=== PATIENT | female | born 1965 | race Caucasian/White ===

== ENCOUNTER 2016-08-04 07:23 | Observation (INO) ==
[2016-08-04] MEDS ORDERED: Ondansetron 4 MG/2 ML VIAL IVP STA (08:00)
[2016-08-04] MEDS ORDERED: *HR* Morphine 2 MG/ML SYRINGE IV ONE (08:00)
--- NOTE | 2016-08-04 08:02 | Emergency Department Note ---
START Narrative - START START: I examined this patient and my medical decision-making was reviewed with the UNEMPLOYMENT INSURANCE DIRECTOR/PA/Advanced Practice Nurse/Resident Physician. I agree with the documented findings, disposition and treatment plan as described except to the extent set forth below. ED attending note: Patient seen with emergency medicine resident Dr. Corbett. Please see a copy of his note for details of the H&P, evaluation, management and disposition of this patient. We independently had [id number] contact with the patient Briefly: A 50-year-old female history of [place] and A. fib on Cymbalta although currently noncompliant presents with epigastric pain is nonexertional. It worsened after eating a cheeseburger last night. Chest mild epigastric discomfort but no discrete Velasquez's sign. Patient will do labs and a formal ultrasound of the right upper quadrant. Also troponin. EKG shows normal sinus rhythm without acute ischemic changes. Patient stable. Disposition pending.
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
[2016-08-04 08:34] LABS: Basophils % 0.4 %; Eosinophils # 0.1 K/mcL (0.0-0.6); Eosinophils % 1.4 %; Hematocrit 36.7 % (35.3-44.9); Hemoglobin 11.5 g/dL (11.5-15.4); Immature Granulocytes % 0.3 % (0-4); Lymphocytes # 1.2 K/mcL (0.6-4.6); Mean Corpuscular HGB Conc 31.3 g/dL (31.6-35.5); Mean Corpuscular Hemoglobin 23.8 pg (28.0-33.3); Mean Platelet Volume 9.9 fL (9.4-12.4); Monocytes # 0.3 K/mcL (0.0-1.3); Monocytes % 3.6 %; Neutrophils # 5.7 K/mcL (1.6-8.9); Platelet Count 210 K/mcL (140-400); Red Blood Count 4.83 M/mcL (3.82-4.97); Red Cell Distribution Width 16.5 % (11.5-14.5); Segmented Neutrophils % 77.3 %
[2016-08-04 08:46] LABS: Alanine Aminotransferase 17 Units/L (0-55); Albumin 3.4 g/dL (3.5-5.0); Albumin/Globulin Ratio 1.1 (1.1-2.2); Alkaline Phosphatase 96 Units/L (38-126); Aspartate Amino Transferase 16 Units/L (5-34); BUN/Creatinine Ratio 17 (6-26); Bilirubin,Direct 0.2 mg/dL (0.0-0.5); Bilirubin,Indirect 0.2 mg/dL (0.0-1.2); Bilirubin,Total 0.4 mg/dL (0.2-1.2); Blood Urea Nitrogen 13 mg/dL (7-20); Calcium 9.3 mg/dL (8.6-10.8); Carbon Dioxide 21 mEq/L (19-29); Chloride 105 mEq/L (98-109); Globulin 3.2 g/dL (2.4-3.5); Glucose 335 mg/dL (70-99); Lipase 23 Units/L (8-78); Osmolality,Calculated 299 (280-300); Sodium 138 mEq/L (136-145); Total Protein 6.6 g/dL (6.0-8.3); eGFR For African Americans > 60 (> 60); eGFR For Non-African Americans > 60 (> 60)
[2016-08-04] MEDS ORDERED: Ondansetron 4 MG/2 ML VIAL IV STA (09:36)
[2016-08-04] MEDS ORDERED: *HR* HYDROmorphone (PF) 1 MG/ML SYRINGE IVP ONE ×2 (09:36→11:01)
[2016-08-04] MEDS ORDERED: D5% in Water 1,000 ML IV PRN ×2 (12:27→12:32)
[2016-08-04] MEDS ORDERED: Acetaminophen 325 MG TABLET PO PRN (12:27)
[2016-08-04] MEDS ORDERED: *HR* Dextrose 50 % in Water (Syg) 50 ML SYRINGE IVP PRN ×2 (12:27→12:32)
[2016-08-04] MEDS ORDERED: Ondansetron 4 MG/2 ML VIAL IVP PRN (12:27)
[2016-08-04] MEDS ORDERED: Dextrose Gel 15 GM PO PRN ×4 (12:27→12:32)
[2016-08-04] MEDS ORDERED: Naloxone 0.4 MG/ML INJ IVP PRN (12:27)
[2016-08-04] MEDS ORDERED: Ipratropium/Albuterol Neb 3 ML IH PRN (12:31)
--- NOTE | 2016-08-04 12:37 | Internal Med History&Physical ---
Date of Encounter: 08/04/16 Time of Encounter: 12:33 Assessment and Plan (1) Intractable abdominal pain Current visit: Yes Status: Acute Intractable abdominal pain likely secondary to cholelithiasis with possible cholecystitis although there is no thickening of the gallbladder wall but the patient is very symptomatic, also has watery diarrhea May discontinue Rocephin and Flagyl if no cholecystitis diagnosed Send C. difficile test, may discontinue Rocephin if positive Dr. Brannon recommended the patient admission and will follow Keep nothing by mouth, IV fluids Morphine IV (2) Cholelithiasis Current visit: Yes Status: Acute Qualifiers: Cholelithiasis location: gallbladder Cholecystitis presence: with cholecystitis Cholecystitis acuity: acute Biliary obstruction: without biliary obstruction Qualified Code(s): K80.00 - Calculus of gallbladder with acute cholecystitis without obstruction (3) Diabetes mellitus, type II, insulin dependent Current visit: No Status: Chronic Continue insulin sliding scale only (4) History of cerebral hemorrhage Current visit: No Status: Chronic (5) Hyperlipemia Current visit: No Status: Chronic Qualifiers: Hyperlipidemia type: unspecified Qualified Code(s): E78.5 - Hyperlipidemia , unspecified (6) Obesity (BMI 30-39.9) Current visit: No Status: Chronic (7) Paroxysmal atrial fibrillation Current visit: No Status: Chronic The patient has not been taking her Xarelto due to constant nasal bleeding Continue metoprolol The patient will be admitted for observation. Protonix IV for GI prophylaxis since super tenderness heparin for DVT prophylaxis. Full code. Time spent on this admission 40 minutes. High risk for complications of possible cholecystitis Internal Medicine - H&P: HPI Chief complaint: Abdominal pain Admitted From: Emergency Dept History of present illness: Ms. Jacome is a 50 year old female with a past medical history of diabetes type 2 insulin-dependent, atrial fibrillation noncompliant with Xareslto (not taking it for the last month) comes to the emergency room complaining of 2 weeks of right upper quadrant pain with epigastric pain, having nausea and bilious emesis. She also has complaint of watery diarrhea 6 times since yesterday without any block. The right upper quadrant pain gets worse after eating fatty meals, radiates to the back and is described as sharp 8 out of 10 in intensity. Glucose is 335. Ultrasound shows cholelithiasis with positive Velasquez sign concerning for cholecystitis. The patient is complaining of severe pain still. Dr. Brannon from the surgical service was contacted by ER physician for admission, but he requested for the patient to be admitted on the hospitalist service. The patient is to complain of severe nausea Past Med Surg Social Fam HX - Past Medical History Medical history: atrial fibrillation (Noncompliant with Xarelto), COPD (Not oxygen dependent), CVA, diabetes (Insulin-dependent), hypertension, liver disease, other (MRSA UTI, anxiety, GERD, depression) Psychiatric history: anxiety, depression - Past Surgical History Surgical History: , other - Social History Smoking Status: Never smoker Smokeless Tobacco Status: No Alcohol use: none Drug use: none - Family History Mother Living Status: Hx Family Cardiac Disorders: Yes Hx Family Respiratory Disorders: Yes (COPD, Emphazema) Hx Family Cancer: Yes Hx Family Endocrine Disorder: Yes (DM) Father Living Status: Hx Family Cardiac Disorders: Yes Hx Family Cancer: Yes Hx Family Endocrine Disorder: Yes (DM) - Additional Family History Additional family history: Father with myocardial infarction at the age of 40, mother with lung cancer Internal Medicine - H&P: Meds Albuterol Sulfate [Proair Respiclick] 2 puff IH Q4H PRN 10/26/15 [History] Aspirin [Adult Low Dose Aspirin EC] 81 mg PO DAILY 10/26/15 [History] ClonazePAM [Klonopin] 0.5 mg PO HS 10/26/15 [History] Etonogestrel [Nexplanon] 68 mg SQ AD 10/26/15 [History] Ferrous Sulfate [Iron] 325 mg PO DAILY 10/26/15 [History] Insulin ASPART [Novolog Flexpen] 2 - 10 unit SQ TID 10/26/15 [History] Insulin Glargine,Hum.rec.anlog [Lantus Solostar] 50 unit SQ BID 10/26/15 [ History] Lisinopril [Zestril] 5 mg PO DAILY 10/26/15 [History] Metformin [Glucophage] 1,000 mg PO BIDWM 10/26/15 [History] Metoprolol [Lopressor] 12.5 mg PO BID 10/26/15 [History] Omeprazole [PriLOSEC] 40 mg PO DAILY 10/26/15 [History] Pregabalin [Lyrica] 100 mg PO BID 10/26/15 [History] Sertraline [Zoloft] 150 mg PO DAILY 10/26/15 [History] Trazodone HCl 50 - 100 mg PO HS PRN 10/26/15 [History] Ondansetron ODT [Zofran ODT] 4 mg SL Q6HR #14 tab.rapdis 02/26/16 [Rx] Atorvastatin Calcium [Lipitor] 20 mg PO DAILY #0 04/17/16 [Rx] Ibuprofen [Motrin] 600 mg PO Q6-8H PRN #30 tab 05/21/16 [Rx] Allergies No Known Allergies Allergy (Verified 08/04/16 07:34) All Systems PM: A 10-system review of systems was performed and is negative for pertinent findings except as documented above in the HPI. Review of systems: Continues having abdominal pain, nausea, no dysuria, no chest pain. Other systems out of the 10th reviewed were negative - Constitutional Vitals: Temp Pulse Resp BP Pulse Ox 98.4 F 74 16 118/67 98 08/04/16 07:32 08/04/16 11:07 08/04/16 11:51 08/04/16 11:51 08/04/16 11:07 General appearance: Present: A&O X 3, morbidly obese Exam: Dry mucosa - Head Head exam: Present: atraumatic, normocephalic - Eye Eye exam: Present: PERRL, conjuntiva pink, sclera anicteric Pupils: Present: PERRL - Neck Neck exam general surgery: Present: supple, trachea midline. Absent: lymphadenopathy - Respiratory Respiratory exam: Present: decreased breath sounds, CTAB. Absent: accessory muscle use, rales, rhonchi, wheezes - Cardiovascular Cardiovascular exam: Present: RRR, +S1, +S2. Absent: diastolic murmur, gallop, rubs, systolic murmur - GI/Abdominal GI/Abdominal exam: Present: distended, normal bowel sounds, soft, tenderness ( Right upper quadrant tenderness, Velasquez's sign is positive), no peritoneal signs - Extremities Exam Extremities exam: Present: warm, radial pulses palpable and symetrical. Absent : calf tenderness, cyanotic, pedal edema - Neurological Exam Neurological exam: Present: CN II-XII intact, oriented X3, no focal deficits. Absent: pronater drift, facial droop, speech deficit - Skin Skin exam: Present: dry, intact Internal Med - H&P Results - Labs CBC & Chem 7: 08/04/16 08:22 08/04/16 08:22
[2016-08-04] MEDS: Pantoprazole 40 MG VIAL IVP SCH (13:49)
[2016-08-04] MEDS: 0.9 % Sodium Chloride 1,000 ML IVC SCH (13:50)
[2016-08-04] MEDS: MetroNIDAZOLE 500 MG/100 ML 500 MG/100 ML BAG IVPB SCH ×2 (13:50→17:08)
[2016-08-04] MEDS: *HR* Morphine 2 MG/ML SYRINGE IVP PRN ×3 (13:51→21:23)
--- NOTE | 2016-08-04 15:15 | General Surgery Consult Note ---
Date of Encounter: 08/04/16 Time of Encounter: 14:30 Assessment and Plan (1) Cholelithiasis Current Visit: Yes Status: Resolved Confirmed by gallbladder US. Continue IV fluids. NPO at midnight. Surgery likely tomorrow afternoon. Supportive care/pain control. Qualifiers: Cholelithiasis location: gallbladder Cholecystitis presence: with cholecystitis Cholecystitis acuity: acute Biliary obstruction: without biliary obstruction Qualified Code(s): K80.00 - Calculus of gallbladder with acute cholecystitis without obstruction (2) Intractable abdominal pain Current Visit: Yes Status: Acute Likely secondary to cholelithiasis. See plan above. (3) Diabetes mellitus, type II, insulin dependent Current Visit: No Status: Chronic BG 335 upon admission. Primary medicine service to manage. (4) Paroxysmal atrial fibrillation Current Visit: No Status: Chronic History of A fib, s/p ablation. Management by medicine service. (5) Hyperlipemia Current Visit: No Status: Chronic Qualifiers: Hyperlipidemia type: unspecified Qualified Code(s): E78.5 - Hyperlipidemia , unspecified (6) Obesity (BMI 30-39.9) Current Visit: No Status: Chronic (7) History of cerebral hemorrhage Current Visit: No Status: Chronic Patient has been non-compliant with Xarelto for months. On heparin for DVT prophylaxis. (8) HTN (hypertension) Current Visit: Yes Status: Acute Currently normotensive. Continued home medicine of metoprolol 12.5mg BID. Management by medicine service. Qualifiers: Hypertension type: essential hypertension Qualified Code(s): I10 - Essential (primary) hypertension (9) DVT prophylaxis Current Visit: Yes Status: Acute Per medicine team, heparin 5,000 SQ Q8H for DVT prophylaxis. History of Present Illness Consult date: 08/04/16 Reason for consult: gallstones Requesting physician: Regan Browning History of present illness: Ms. Jacome is a 50 year old female that presented to the ED for RUQ pain x2 weeks. Patient states the patient has continued to get worse of the past two weeks with intermittent nausea and vomiting. Patient states when the pain is at its worst it is a 9/10 in severity, currently 8/10. Symptoms seem to be worsened with fatty foods. Patient also notes runny, watery, yellowish stools for the past 3-4 weeks. Patient admits to increased sweating and chest pressure when pain is at its worse. Patient denies any melena or BRBPR, denies vision changes or syncope, denies shortness of breath, denies any fevers or chills. Gallbladder US revealed numerous shadowing echogenic stones in the gallbladder lumen. No gallbladder wall thickening or percholecystic fluid.Noted to have positive Velasquez's sign. Common bile duct at the upper limit at 7mm. concern for acute cholecystitis. PMHx of DM type 2, remote CVA(patient states Xarelto makes her bleed so she has not taken it in multiple months), remote OR, HLD, HTN, A fib, OCPD, obesity, anxiety and depression. Past Med Surg Social Fam HX - Past Medical History Medical history: atrial fibrillation, COPD, CVA, diabetes, hypertension Psychiatric history: anxiety, depression - Past Surgical History Surgical History: - Social History Smoking Status: Never smoker Smokeless Tobacco Status: No Alcohol use: none Drug use: none - Family History Mother Living Status: Cause of : lung cancer Hx Family Cardiac Disorders: Yes Hx Family Respiratory Disorders: Yes (copd) Hx Family Cancer: Yes (lung cancer) Hx Family Endocrine Disorder: Yes (DM type II) Father Living Status: Cause of : heart attack Hx Family Cardiac Disorders: Yes Hx Family Cancer: Yes (stomach cancer) Hx Family Endocrine Disorder: Yes (DM) Medications and Allergies Albuterol Sulfate [Proair Respiclick] 2 puff IH Q4H PRN 10/26/15 [History] Aspirin [Adult Low Dose Aspirin EC] 81 mg PO DAILY 10/26/15 [History] ClonazePAM [Klonopin] 0.5 mg PO HS 10/26/15 [History] Etonogestrel [Nexplanon] 68 mg SQ AD 10/26/15 [History] Ferrous Sulfate [Iron] 325 mg PO DAILY 10/26/15 [History] Insulin ASPART [Novolog Flexpen] 2 - 10 unit SQ TID 10/26/15 [History] Insulin Glargine,Hum.rec.anlog [Lantus Solostar] 50 unit SQ BID 10/26/15 [ History] Lisinopril [Zestril] 5 mg PO DAILY 10/26/15 [History] Metformin [Glucophage] 1,000 mg PO BIDWM 10/26/15 [History] Metoprolol [Lopressor] 12.5 mg PO BID 10/26/15 [History] Omeprazole [PriLOSEC] 40 mg PO DAILY 10/26/15 [History] Pregabalin [Lyrica] 100 mg PO BID 10/26/15 [History] Sertraline [Zoloft] 150 mg PO DAILY 10/26/15 [History] Trazodone HCl 50 - 100 mg PO HS PRN 10/26/15 [History] Ondansetron ODT [Zofran ODT] 4 mg SL Q6HR #14 tab.rapdis 02/26/16 [Rx] Atorvastatin Calcium [Lipitor] 20 mg PO DAILY #0 04/17/16 [Rx] Ibuprofen [Motrin] 600 mg PO Q6-8H PRN #30 tab 05/21/16 [Rx] Docusate Sodium [Colace] 100 mg PO DAILY PRN 30 Days 08/06/16 [Rx] OxyCODONE/APAP 5/325 [Percocet 5/325 MG] 1 each PO Q6HR PRN #30 tablet 08/06/16 [Rx] Allergies No Known Allergies Allergy (Verified 08/04/16 07:34) Review of Systems All systems PM: A 10-system review of systems was performed and is negative for pertinent findings except as documented above in the HPI. - Constitutional no chills, no fever(s), no night sweats - EENT Nose, mouth and throat: dry mouth - Cardiovascular chest pain (recent work related injury to chest), palpitations, no dyspnea, no edema, no syncope - Respiratory no cough, no dyspnea - Gastrointestinal abdominal pain, diarrhea, nausea, vomiting, no coffee ground emesis, no hematemesis, no melena - Genitourinary Genitourinary: flank pain (radiates around R side into back), no dysuria - Musculoskeletal back pain, numbness, tingling - Neurological radicular pain, no confusion, no loss of vision, no syncope - Psychiatric anxiety, depression - Endocrine excessive sweating - Hematologic/Lymphatic easy bleeding General Surgery Exam Initial Vital Signs Temp Pulse Resp BP Pulse Ox 98.4 F 87 16 143/72 97 08/04/16 07:32 08/04/16 07:32 08/04/16 07:32 08/04/16 07:32 08/04/16 07:32 - General physical appearance well developed, well nourished, moderate pain - Eyes pinpoint pupil, normal ocular movement - ENT normal mucosa, no congestion, atraumatic, normocephalic - Neck trachea midline - Respiratory normal expansion, normal respiratory effort, clear to auscultation - Cardiovascular Cardiovascular exam: Present: RRR, no murmurs/rubs/gallops - Abdomen Abdomen general surgery: Present: bowel sounds present, soft, tender (referred tenderness to RUQ when palpation ofentire abdomen.) Abdominal Tenderness: Present: RUQ, diffusely (referred to RUQ) - Integumentary Integumentary general surgery: Present: warm and dry, no abnormal pigmentation - Neurologic Present: normal coordination. Absent: CN 2-12 grossly intact (uvula deviated to the left.), confused, disoriented, memory loss - Psychiatric Psychiatric general surgery: Present: appropriate, oriented to person, oriented to place, oriented to time, speech is normal, memory intact Exam Initial Vital Signs Temp Pulse Resp BP Pulse Ox 98.4 F 87 16 143/72 97 08/04/16 07:32 08/04/16 07:32 08/04/16 07:32 08/04/16 07:32 08/04/16 07:32 Results - Labs 08/06/16 08:05 08/06/16 08:05 Abnormal lab results MCV 76.0 fL (83.0-100.0) L 08/04/16 08:22 MCH 23.8 pg (28.0-33.3) L 08/04/16 08:22 MCHC 31.3 g/dL (31.6-35.5) L 08/04/16 08:22 RDW 16.5 % (11.5-14.5) H 08/04/16 08:22 Glucose 335 mg/dL (70-99) H 08/04/16 08:22 POC Glucose 276 (58-89) H 08/04/16 09:18 Albumin 3.4 g/dL (3.5-5.0) L 08/04/16 08:22 All other labs normal. Consult Discharge Plan - Plan Additional Instructions: May shower. No lifting, pushing, pulling more than 15 pounds[address] til off narcotics. Wash incisions with soap and water. Referrals: Joanne Paez MD [Primary Care Provider] - 08/14/16 1:45 pm Prescriptions: OxyCODONE/APAP 5/325 [Percocet 5/325 MG] 1 each PO Q6HR PRN #30 tablet PRN Reason: Pain Docusate Sodium [Colace] 100 mg PO DAILY PRN 30 Days PRN Reason: Constipation
[2016-08-04] MEDS: *HR* Heparin 5,000 UNIT/ML VIAL SQ SCH (17:05)
[2016-08-04] MEDS: Insulin LISPRO 300 UNITS/3 ML VIAL SQ SCH (17:10)
[2016-08-04] MEDS ORDERED: clonazePAM 0.5 MG TABLET PO SCH (21:00)
[2016-08-04] MEDS: Pregabalin 50 MG CAPSULE PO SCH (21:38)
[2016-08-05] MEDS: *HR* Heparin 5,000 UNIT/ML VIAL SQ SCH ×2 (00:35→08:29)
[2016-08-05] MEDS: *HR* Morphine 2 MG/ML SYRINGE IVP PRN ×5 (00:35→22:16)
[2016-08-05] MEDS: MetroNIDAZOLE 500 MG/100 ML 500 MG/100 ML BAG IVPB SCH ×3 (00:36→17:15)
[2016-08-05] MEDS: Insulin LISPRO 300 UNITS/3 ML VIAL SQ SCH ×4 (00:36→12:16)
[2016-08-05] MEDS: 0.9 % Sodium Chloride 1,000 ML IVC SCH ×3 (00:36→21:13)
[2016-08-05 07:13] LABS: Hematocrit 35.5 % (35.3-44.9); Hemoglobin 10.9 g/dL (11.5-15.4); Mean Corpuscular HGB Conc 30.7 g/dL (31.6-35.5); Mean Corpuscular Hemoglobin 23.7 pg (28.0-33.3); Mean Corpuscular Volume 77.2 fL (83.0-100.0); Mean Platelet Volume 10.2 fL (9.4-12.4); Platelet Count 199 K/mcL (140-400); Red Cell Distribution Width 16.1 % (11.5-14.5)
[2016-08-05 07:33] LABS: Alanine Aminotransferase 22 Units/L (0-55); Albumin 2.9 g/dL (3.5-5.0); Alkaline Phosphatase 74 Units/L (38-126); Aspartate Amino Transferase 34 Units/L (5-34); BUN/Creatinine Ratio 14 (6-26); Bilirubin,Total 0.4 mg/dL (0.2-1.2); Blood Urea Nitrogen 9 mg/dL (7-20); Carbon Dioxide 21 mEq/L (19-29); Chloride 107 mEq/L (98-109); Glucose 157 mg/dL (70-99); Osmolality,Calculated 290 (280-300); Potassium 3.9 mEq/L (3.5-4.5); Sodium 139 mEq/L (136-145); Total Protein 5.9 g/dL (6.0-8.3); eGFR For African Americans > 60 (> 60); eGFR For Non-African Americans > 60 (> 60)
[2016-08-05] MEDS: Pantoprazole 40 MG VIAL IVP SCH (08:30)
[2016-08-05] MEDS: Pregabalin 50 MG CAPSULE PO SCH ×2 (08:30→21:14)
[2016-08-05] MEDS ORDERED: Aspirin Enteric Coated 81 MG Tablet PO SCH (09:00)
--- NOTE | 2016-08-05 11:40 | Event Note ---
Date of Encounter: 08/05/16 Time of Encounter: 11:38 Patient seen at the bedside, still complaining of epigastric pain. Also has nausea, patient admitted for acute cholecystitis. Gallbladder ultrasound shows cholelithiasis with possible acute cholecystitis. IV antibiotics have been started, patient remains nothing by mouth. We will continue supportive treatment with IV fluids, analgesics and antiemetics. Surgery has been consulted, anticipating possible cholecystectomy. We will follow surgical recommendations. Patient remains hemodynamically stable at this time.
[2016-08-05] MEDS ORDERED: *HR* FentaNYL (PF) 100 MCG/2 ML VIAL ONE (16:00)
[2016-08-05] MEDS ORDERED: Lidocaine -MPF 2% 2 ML VIAL ONE ×2 (16:12→16:20)
[2016-08-05] MEDS ORDERED: Lidocaine -MPF 4% 5 ML AMPUL ONE (16:12)
[2016-08-05] MEDS ORDERED: *HR* Succinylcholine 200 MG/10 ML VIAL IVP ONE (16:12)
[2016-08-05] MEDS ORDERED: *HR* Propofol 200 MG/20 ML VIAL IVP ONE (16:12)
[2016-08-05] MEDS ORDERED: *HR* Midazolam HCl 2 MG/2 ML VIAL ONE (16:12)
[2016-08-05] MEDS ORDERED: *HR* Rocuronium Bromide 50 MG/5 ML VIAL ONE (16:12)
--- NOTE | 2016-08-05 16:46 | Anesthesia Evaluation PreOp ---
Date of Encounter: 08/05/16 Time of Encounter: 16:43 - Past History Planned Operation: Lap [facility] Cardiac History: CA (2003), HTN (maintained on Lisinopril, Lopressor), Hyperlipidemia (mainatained on Atorvastatin), Arrhythmia (Hx of Paroxysmal AFib s/p cardiac ablation. Maintained on Xarelto (currently stopped x 1 month re: epistaxis ), Metoprolol) Pulmonary History: COPD (maintained on Albuterol) [facility] History: CVA (approximately 2009 - w/ residual L-sided weakness, numbness, bowel/Bladder dysfx.), Other (Anxiety/Depression maintained on Clonazepam, Trazadone, Zoloft. Chronic Pain/Neuropathy maintained on Lyrica. Hx of psychiatric issues/Conversion disorder. Hx of Facial Paresthesia) Other Medical History: Bleeding (Hx of PE approx 2011), Diabetes Type II (Hx of uncontrolled DM - currently maintained on insulin (dependent), Metformin), GERD (maintained on Omeprazole), Other (Obesity BMI = 36.) Anesthesia History: No Prior Anesthetic Complications, Past Anesthesia (C- section,) Alcohol Use: none Drug use: none Medications and Allergies Albuterol Sulfate [Proair Respiclick] 2 puff IH Q4H PRN 10/26/15 [History] Aspirin [Adult Low Dose Aspirin EC] 81 mg PO DAILY 10/26/15 [History] ClonazePAM [Klonopin] 0.5 mg PO HS 10/26/15 [History] Etonogestrel [Nexplanon] 68 mg SQ AD 10/26/15 [History] Ferrous Sulfate [Iron] 325 mg PO DAILY 10/26/15 [History] Insulin ASPART [Novolog Flexpen] 2 - 10 unit SQ TID 10/26/15 [History] Insulin Glargine,Hum.rec.anlog [Lantus Solostar] 50 unit SQ BID 10/26/15 [ History] Lisinopril [Zestril] 5 mg PO DAILY 10/26/15 [History] Metformin [Glucophage] 1,000 mg PO BIDWM 10/26/15 [History] Metoprolol [Lopressor] 12.5 mg PO BID 10/26/15 [History] Omeprazole [PriLOSEC] 40 mg PO DAILY 10/26/15 [History] Pregabalin [Lyrica] 100 mg PO BID 10/26/15 [History] Sertraline [Zoloft] 150 mg PO DAILY 10/26/15 [History] Trazodone HCl 50 - 100 mg PO HS PRN 10/26/15 [History] Ondansetron ODT [Zofran ODT] 4 mg SL Q6HR #14 tab.rapdis 02/26/16 [Rx] Atorvastatin Calcium [Lipitor] 20 mg PO DAILY #0 04/17/16 [Rx] Ibuprofen [Motrin] 600 mg PO Q6-8H PRN #30 tab 05/21/16 [Rx] Allergies No Known Allergies Allergy (Verified 08/04/16 07:34) - Meds/Allergy Pre-op Review Medications Reviewed: Yes Allergies Reviewed: Yes Beta Blockers on Current Med List: No Anesthesia Results - Labs 08/05/16 06:49 08/05/16 06:49 Laboratory Tests 08/05/16 08/05/16 08/05/16 06:49 06:49 12:12 WBC 6.2 Hgb 10.9 L Hct 35.5 Plt Count 199 Sodium 139 Potassium 3.9 Chloride 107 Carbon Dioxide 21 BUN 9 Creatinine 0.66 Est GFR (Non-Af Amer) > 60 POC Glucose 130 H Laboratory Results Impressions Chest X-Ray 08/04/16 07:57 IMPRESSION: Stable chest with no acute cardiopulmonary process. D/ / Valentín Mendenhall MD / Valentín Mendenhall MD Interpreting Provider: Valentín Mendenhall MD Gallbladder Ultrasound 08/04/16 08:01 IMPRESSION: Cholelithiasis with common bile duct at the upper limits of normal and technologist reporting positive sonographic Velasquez sign. The findings are concerning for acute cholecystitis. Nuclear medicine hepatobiliary scintigraphy could be performed for confirmation if clinically warranted. Fatty infiltration of the liver. Findings called to Dr. Corbett at approximately 10:40 a.m. on 08/04/2016. D/ / Valentín Mendenhall MD / Valentín Mendenhall MD Interpreting Provider: Valentín Mendenhall MD - Imaging EKG: image reviewed (77bpm SR) Anesthesia Exam Vital Signs Temp Pulse Resp BP Pulse Ox 08/05/16 16:45 98.2 F 69 16 140/76 95 08/05/16 11:33 97.7 F 57 14 91/57 96 08/05/16 06:57 97.7 F 64 16 111/70 96 08/05/16 03:45 97.7 F 71 16 102/55 96 08/04/16 23:45 97.3 F L 63 16 109/68 95 08/04/16 20:37 97.2 F L 61 14 115/67 98 Intake and Output 08/05/16 08/05/16 08/05/16 07:59 15:59 23:59 Intake Total 100 / 100 100 / 100 Output Total 150 / 150 400 / 400 300 / 300 Balance -50 / -50 -300 / -300 -300 / -300 Intake: IV Fluids 100 / 100 100 / 100 0.9 % Sodium Chloride 1, 0 / 0 000 ML @ 150 mls/hr IVC . Q6H40M [facility] Rx#:[id number] Flagyl 500 MG/100 ML 500 100 / 100 100 / 100 mg In 100 ml @ 100 mls/hr IVPB Q8HR [facility] Rx#: [id number] Oral 0 / 0 Output: Urine 150 / 150 400 / 400 300 / 300 Other: Meal NPO at this time Weight 86.1 kg Blood Glucose* 148 130 Patient Weight 08/05/16 23:59 Weight 86.1 kg Height: 5'1 Weight: 189# BMI = 36 NPO (# of Hours): MNOC - HEENT Pupil (Motor): Pupils equal, EOMI Mallampati: III Teeth: Edentulous Oral Opening: Greater than 3 - [facility] LOC: Oriented [facility] Motor: Normal RUE, Normal RLE, Normal Face, Deficit LUE (L-sided weakness, Numbness), Deficit LLE [facility] Sensory: Normal: RUE, RLE, Face, Deficit: LUE (L-sided weakness, Numbness), LLE - Cardiac Rhythm: Regular Murmur: None - Pulmonary Breath Sounds: bilateral Clear Respiratory Effort: Symmetrical Anesthesia Assess/Plan ASA Score: 3 (Obesity, Uncontrolled DM, HTN, Chol, Paroxysmal AFib, COPD, Psychiatric disorder) Modified Phoebe Scale for Level of Consciousness: Cooperative, oriented, and tranquil Anesthetic Plan: General Monitoring Plan: Standard Monitors Recovery Plan: PACU Anes Supervising Prov Stmt: Pt seen/evaluated, R&B Discussed, questions answered and consent obtained. Daxa Lizama MD
[2016-08-05] MEDS ORDERED: MetroNIDAZOLE 500 MG/100 ML 500 MG/100 ML BAG IVPB ONE (16:57)
[2016-08-05] MEDS ORDERED: Ringers Solution, Lactated 1,000 ML ONE (16:58)
[2016-08-05] MEDS ORDERED: Acetaminophen IV 1,000 MG/100 ML INFUS..BTL ONE (17:11)
[2016-08-05] MEDS ORDERED: Metoclopramide 10 MG/2 ML VIAL ONE (17:14)
[2016-08-05] MEDS ORDERED: Famotidine 20 MG/2 ML VIAL ONE (17:14)
[2016-08-05] MEDS ORDERED: Ondansetron 4 MG/2 ML VIAL ONE (17:44)
[2016-08-05] MEDS ORDERED: Dexamethasone 4 MG/ML VIAL ONE (17:44)
[2016-08-05] MEDS ORDERED: Ketorolac 30 MG/ML VIAL ONE (17:44)
[2016-08-05] MEDS ORDERED: Ringers Solution, Lactated 1,000 ML IVC SCH ×2 (17:45→19:19)
[2016-08-05] MEDS ORDERED: Neostigmine Methylsulfate 3 MG/3 ML SYRINGE ONE (17:59)
[2016-08-05] MEDS ORDERED: *HR* HYDROmorphone 2 MG/ML SYRINGE ONE (17:59)
--- NOTE | 2016-08-05 18:15 | Operative Note ---
Date of procedure: 08/05/16 Pre-op diagnosis: symptomatic cholelithiasis Post-op diagnosis: same Procedure: Laparoscopic Cholecystectomy with cholangiogram Anesthesia: RENETTA Surgeon: Brent Brannon Estimated blood loss (cc): 200 Specimen: GB Condition: stable Disposition: same day Procedure in Detail: After informed consent this patient was taken the operating room placed supine position. After adequate sedation anesthesia the abdomen was prepped and draped. A proper timeout was performed. Two towel clamps are placed at the umbilicus and a Veres needle was inserted into the abdomen. A 5 mm incision was made at the umbilicus. A 12 mm incision was made in the subxiphoid region. Two 5 mm incisions were made in the right upper quadrant that were 4 finger breadths and 6 finger breadths below the costal margin. The gallbladder was identified, retracted anteriorly and cephalad, and the infundibulum was skeletonized. The cystic duct was easily identified and was dissected free. A ductotomy was created in the cystic duct. A taut catheter was placed within the cystic duct and clipped. A cholangiogram was performed. Contrast filled the cystic duct, common hepatic duct, hepatic radicles, and the distal common bile duct. There was flow of contrast into the duodenum. Once this was confirmed the clippers removed, the taut catheter was removed as well, and the cystic duct was clipped distally. The cystic duct was then transected with scissors. The gallbladder was resected off the liver surface. There was excellent hemostasis. The gallbladder was then retrieved through the 12 mm cannula site. At this point the abdomen was suctioned dry and the pneumoperitoneum was then evacuated. All ports were removed. The 12 mm cannula site was closed with an 0 Vicryl suture in [id number] fashion. The skin was closed with 4-0 Vicryl suture. Dermabond was placed as well. All instrument counts and needle counts are correct in the operation. The patient tolerated the procedure well and was transferred to the PACU in stable condition.
--- NOTE | 2016-08-05 19:00 | Anesthesia Evaluation Post Op ---
Date of Encounter: 08/05/16 Time of Encounter: 19:00 - Vital Signs Vital Signs: Last Vital Signs Temp 98.8 F 08/05/16 18:51 Pulse 76 08/05/16 18:51 Resp 20 08/05/16 18:51 BP 102/59 08/05/16 18:51 Pulse Ox 94 L 08/05/16 18:51 - Lungs Lungs: Clear Ascult./Percussion - Airway Airway: Non-obstructed - Cardiovascular Regular Rate - Mental Status Mental Status: Alert & Oriented, Answers Appropriately - Pain Pain Scale: 2 - Nausea Vomiting Nausea Vomiting: Not Present - Hydration Hydration: Ice chips - Discharge PostOp Status: Transfer Patient to floor
[2016-08-05] MEDS ORDERED: D5% in Water 1,000 ML IV PRN (19:19)
[2016-08-05] MEDS ORDERED: Ipratropium/Albuterol Neb 3 ML IH PRN (19:19)
[2016-08-05] MEDS ORDERED: Naloxone 0.4 MG/ML INJ IVP PRN (19:19)
[2016-08-05] MEDS ORDERED: Ondansetron 4 MG/2 ML VIAL IVP PRN (19:19)
[2016-08-05] MEDS ORDERED: Dextrose Gel 15 GM PO PRN ×4 (19:19)
[2016-08-05] MEDS ORDERED: *HR* Dextrose 50 % in Water (Syg) 50 ML SYRINGE IVP PRN (19:19)
--- NOTE | 2016-08-05 19:53 | Electrocardiograph Report ---
[facility] Test Date: 2016-08-04 Pat Name: Christie Jacome Department: 105 Room: 3A47 Gender: F Frame Straightener: : 1965 Requested By: Zi Corbett Order Number: [id number] Reading MD: Jamie Dow DO Measurements Intervals [place] Rate: 77 P: 44 MI: 149 QRS: 30 QRSD: 98 T: 27 QT: 363 QTc: 394 Interpretive Statements SINUS RHYTHM Electronically Signed On 08-05-16 19:52:22 EST by Jamie Dow DO
[2016-08-05] MEDS: clonazePAM 0.5 MG TABLET PO SCH (21:14)
[2016-08-05] MEDS: Acetaminophen 325 MG TABLET PO PRN (22:22)
[2016-08-06] MEDS: MetroNIDAZOLE 500 MG/100 ML 500 MG/100 ML BAG IVPB SCH ×3 (00:40→17:01)
[2016-08-06] MEDS: *HR* Heparin 5,000 UNIT/ML VIAL SQ SCH ×3 (00:40→17:00)
[2016-08-06] MEDS: Insulin LISPRO 300 UNITS/3 ML VIAL SQ SCH ×4 (00:41→17:01)
[2016-08-06] MEDS: *HR* Morphine 2 MG/ML SYRINGE IVP PRN ×2 (00:42→05:58)
[2016-08-06] MEDS: 0.9 % Sodium Chloride 1,000 ML IVC SCH (05:16)
[2016-08-06 08:15] LABS: Basophils % 0.2 %; Eosinophils % 0.1 %; Hematocrit 33.5 % (35.3-44.9); Hemoglobin 10.5 g/dL (11.5-15.4); Immature Granulocytes % 0.3 % (0-4); Lymphocytes # 0.9 K/mcL (0.6-4.6); Lymphocytes % 10.6 %; Mean Corpuscular HGB Conc 31.3 g/dL (31.6-35.5); Mean Corpuscular Hemoglobin 23.8 pg (28.0-33.3); Mean Platelet Volume 9.7 fL (9.4-12.4); Monocytes # 0.4 K/mcL (0.0-1.3); Neutrophils # 7.5 K/mcL (1.6-8.9); Platelet Count 196 K/mcL (140-400); Red Blood Count 4.41 M/mcL (3.82-4.97); Red Cell Distribution Width 15.9 % (11.5-14.5); Segmented Neutrophils % 84.8 %
[2016-08-06 08:28] LABS: BUN/Creatinine Ratio 14 (6-26); Blood Urea Nitrogen 9 mg/dL (7-20); Calcium 7.6 mg/dL (8.6-10.8); Carbon Dioxide 19 mEq/L (19-29); Chloride 110 mEq/L (98-109); Glucose 175 mg/dL (70-99); Osmolality,Calculated 291 (280-300); Potassium 3.5 mEq/L (3.5-4.5); Sodium 139 mEq/L (136-145); eGFR For African Americans > 60 (> 60); eGFR For Non-African Americans > 60 (> 60)
[2016-08-06] MEDS: *HR* HYDROmorphone 2 MG/ML SYRINGE IVP PRN ×3 (08:57→20:00)
[2016-08-06] MEDS: Pantoprazole 40 MG VIAL IVP SCH (08:58)
[2016-08-06] MEDS: Aspirin Enteric Coated 81 MG Tablet PO SCH (08:59)
[2016-08-06] MEDS: Pregabalin 50 MG CAPSULE PO SCH ×2 (09:00→20:01)
--- NOTE | 2016-08-06 10:59 | Internal Med Progress Note ---
Date of Encounter: 08/06/16 Time of Encounter: 10:56 - Assessment and plan (1) Cholecystitis Current Visit: Yes Status: Acute Assessment and plan: Acute cholecystitis secondary to cholelithiasis, status post laparoscopic cholecystectomy first postoperative day today. Complaining of abdominal pain at the site of the surgery, expected postoperatively. We will increase the pain medications. We will continue IV fluids for now, diet to be started as recommended by surgery. We will continue IV antibiotics at this time. Remains afebrile, no leukocytosis,postop H&H is stable. (2) HTN (hypertension) Current Visit: Yes Status: Acute Assessment and plan: Blood pressure is stable, will continue home medications. Continue to monitor. Qualifiers: Hypertension type: essential hypertension Qualified Code(s): I10 - Essential (primary) hypertension (3) Diabetes mellitus Current Visit: No Status: Chronic Assessment and plan: Continue the correctional insulin sliding scale. Will add prandial insulin once started on diet. Monitor Accu-Cheks. Qualifiers: Diabetes mellitus type: type 2 Diabetes mellitus complication status: without complication Diabetes mellitus ocean transportation intermediary insulin use: with ocean transportation intermediary use Qualified Code(s): E11.9 - Type 2 diabetes mellitus without complications ; Z79.4 - [facility] (current) use of insulin (4) Hyperlipemia Current Visit: No Status: Chronic Assessment and plan: Continue home medication. Qualifiers: Hyperlipidemia type: unspecified Qualified Code(s): E78.5 - Hyperlipidemia , unspecified (5) Obesity (BMI 30-39.9) Current Visit: No Status: Chronic - Time Spent With Patient 25 - 35 minutes - Subjective Interval history: Patient seen at the bedside, status post laparoscopic cholecystectomy yesterday with Dr. Brannon. Complaining of abdominal pain at the site of the surgery, no nausea or vomiting. Asking if she can drink water. Has not had any bowel movement, remains afebrile. - Constitutional Vitals: Temp Pulse Resp BP Pulse Ox 98.5 F 64 12 104/68 90 L 08/06/16 10:33 08/06/16 10:33 08/06/16 10:33 08/06/16 10:33 08/06/16 10:33 General appearance: Present: A&O X 3, morbidly obese Exam: Neck supple Chest bilateral clear, no added sounds. CVS S1-S2, no murmurs rubs or gallops. Abdomen soft, tender on the right hypochondrium and epigastric region, bowel sounds are present, no rebound. Extremities no edema. Internal Medicine: Result - Labs CBC & Chem 7: 08/06/16 08:05 08/06/16 08:05 Labs: Short CBC 08/06/16 Range/Units 08:05 WBC 8.8 (4.3-11.1) K/mcL Hgb 10.5 L (11.5-15.4) g/dL Hct 33.5 L (35.3-44.9) % Plt Count 196 (140-400) K/mcL Neutrophils # 7.5 (1.6-8.9) K/mcL BMP 08/06/16 08:05 Sodium 139 Potassium 3.5 Chloride 110 H Carbon Dioxide 19 BUN 9 Creatinine 0.64 Glucose 175 H Calcium 7.6 L - Impressions Impressions Cholangiogram,Operative 08/05/16 00:00 IMPRESSION: 1. Intraoperative cholangiogram as above. D/ / Gilberto Mott MD / Gilberto Mott MD Interpreting Provider: Gilberto Mott MD - VTE Documentation of Mechanical Device: Intermittent pneumatic compression device Consult Discharge Plan - Plan Referrals: Joanne Paez MD [Primary Care Provider] - 08/14/16 1:45 pm
--- NOTE | 2016-08-06 11:21 | General Surgery Progress Note ---
Date of Encounter: 08/06/16 Time of Encounter: 10:00 - Assessment and Plan (1) Cholelithiasis Current Visit: Yes Status: Resolved POD#1 s/p Cholecystectomy Afebrile Currently NPO Supportive care/pain control Qualifiers: Cholelithiasis location: gallbladder Cholecystitis presence: with cholecystitis Cholecystitis acuity: acute Biliary obstruction: without biliary obstruction Qualified Code(s): K80.00 - Calculus of gallbladder with acute cholecystitis without obstruction (2) Intractable abdominal pain Current Visit: Yes Status: Acute Improving s/p cholecystectomy. See plan above. (3) Diabetes mellitus, type II, insulin dependent Current Visit: No Status: Chronic Management per medicine service. (4) HTN (hypertension) Current Visit: Yes Status: Acute Currently normotensive. Management per medicine service. Qualifiers: Hypertension type: essential hypertension Qualified Code(s): I10 - Essential (primary) hypertension (5) Paroxysmal atrial fibrillation Current Visit: No Status: Chronic (6) Hyperlipemia Current Visit: No Status: Chronic Qualifiers: Hyperlipidemia type: unspecified Qualified Code(s): E78.5 - Hyperlipidemia , unspecified (7) Obesity (BMI 30-39.9) Current Visit: No Status: Chronic (8) History of cerebral hemorrhage Current Visit: No Status: Chronic (9) DVT prophylaxis Current Visit: Yes Status: Acute Heparin 5,000 SQ Q8H for prophylaxis. Subjective Patient reports: no new complaints, feels better, still having pain, pain is less, flatus, afebrile Objective Vital Signs - Last 8 Hours Temp Pulse Resp BP Pulse Ox 08/06/16 10:33 98.5 F 64 12 104/68 90 L 08/06/16 07:27 98.5 F 72 16 115/72 93 L 08/06/16 04:30 97.9 F 71 16 121/79 93 L Intake and Output 08/05/16 08/06/16 08/06/16 23:59 07:59 15:59 Intake Total 100 / 100 1100 / 1100 Output Total 500 / 500 500 / 500 Balance -400 / -400 600 / 600 Intake: IV Fluids 100 / 100 1100 / 1100 0.9 % Sodium Chloride 1, 1000 / 1000 000 ML @ 150 mls/hr IVC . Q6H40M [facility] Rx#:[id number] Flagyl 500 MG/100 ML 500 100 / 100 100 / 100 mg In 100 ml @ 100 mls/hr IVPB Q8HR [facility] Rx#: [id number] Oral 0 / 0 0 / 0 Output: Urine 300 / 300 500 / 500 Estimated Blood Loss 200 / 200 Other: Meal Dinner NPO Percent of Meal Consumed 0% Weight 86 kg Blood Glucose* 243 205 156 Patient Weight 08/06/16 23:59 Weight 86 kg - General physical appearance well developed, well nourished, moderate distress - Eyes normal ocular movement - ENT normal mucosa, atraumatic, normocephalic - Neck Neck exam: trachea midline - Respiratory normal respiratory effort, clear to auscultation - Cardiovascular Cardiovascular exam: Present: RRR - Abdomen Abdomen: Present: bowel sounds present, soft, tender (expected post operative tenderness) - Incision Incision: Present: clean and dry, intact - Integumentary no rash - Neurologic CN 2-12 grossly intact - Psychiatric oriented to time, oriented to person, oriented to place, speech is normal, memory intact - Labs 08/06/16 08:05 08/06/16 08:05 Diabetes panel 08/06/16 Range/Units 08:05 Sodium 139 (136-145) mEq/L Potassium 3.5 (3.5-4.5) mEq/L Chloride 110 H (98-109) mEq/L Carbon Dioxide 19 (19-29) mEq/L BUN 9 (7-20) mg/dL Creatinine 0.64 (0.57-1.11) mg/dL Glucose 175 H (70-99) mg/dL Calcium 7.6 L (8.6-10.8) mg/dL Calcium panel 08/06/16 Range/Units 08:05 Calcium 7.6 L (8.6-10.8) mg/dL Pituitary panel 08/06/16 Range/Units 08:05 Sodium 139 (136-145) mEq/L Potassium 3.5 (3.5-4.5) mEq/L Chloride 110 H (98-109) mEq/L Carbon Dioxide 19 (19-29) mEq/L BUN 9 (7-20) mg/dL Creatinine 0.64 (0.57-1.11) mg/dL Glucose 175 H (70-99) mg/dL Calcium 7.6 L (8.6-10.8) mg/dL Adrenal panel 08/06/16 Range/Units 08:05 Sodium 139 (136-145) mEq/L Potassium 3.5 (3.5-4.5) mEq/L Chloride 110 H (98-109) mEq/L Carbon Dioxide 19 (19-29) mEq/L BUN 9 (7-20) mg/dL Creatinine 0.64 (0.57-1.11) mg/dL Glucose 175 H (70-99) mg/dL Calcium 7.6 L (8.6-10.8) mg/dL - VTE Documentation of Mechanical Device: Intermittent pneumatic compression device Consult Discharge Plan - Plan Additional Instructions: May shower. No lifting, pushing, pulling more than 15 pounds[address] No [address] til off narcotics. Wash incisions with soap and water. Referrals: Joanne Paez MD [Primary Care Provider] - 08/14/16 1:45 pm Prescriptions: OxyCODONE/APAP 5/325 [Percocet 5/325 MG] 1 each PO Q6HR PRN #30 tablet PRN Reason: Pain Docusate Sodium [Colace] 100 mg PO DAILY PRN 30 Days PRN Reason: Constipation
[2016-08-06] MEDS: *HR* OxyCODONE/APAP 10/325 TABLET PO PRN ×2 (12:07→18:15)
[2016-08-06] MEDS: clonazePAM 0.5 MG TABLET PO SCH (20:01)
[2016-08-07] MEDS: *HR* HYDROmorphone 2 MG/ML SYRINGE IVP PRN ×3 (00:02→10:15)
[2016-08-07] MEDS: *HR* Heparin 5,000 UNIT/ML VIAL SQ SCH ×4 (00:02→23:03)
[2016-08-07] MEDS: MetroNIDAZOLE 500 MG/100 ML 500 MG/100 ML BAG IVPB SCH ×3 (00:02→16:04)
[2016-08-07] MEDS: 0.9 % Sodium Chloride 1,000 ML IVC SCH (00:03)
[2016-08-07] MEDS: Insulin LISPRO 300 UNITS/3 ML VIAL SQ SCH ×6 (00:20→16:30)
[2016-08-07] MEDS: *HR* OxyCODONE/APAP 10/325 TABLET PO PRN ×4 (03:53→23:03)
[2016-08-07] MEDS: Acetaminophen 325 MG TABLET PO PRN (06:24)
[2016-08-07] MEDS: Pantoprazole 40 MG VIAL IVP SCH (09:00)
[2016-08-07] MEDS: Aspirin Enteric Coated 81 MG Tablet PO SCH (09:01)
[2016-08-07] MEDS: Pregabalin 50 MG CAPSULE PO SCH ×2 (09:01→20:55)
[2016-08-07 09:16] LABS: BUN/Creatinine Ratio 13 (6-26); Blood Urea Nitrogen 8 mg/dL (7-20); Calcium 7.1 mg/dL (8.6-10.8); Carbon Dioxide 17 mEq/L (19-29); Chloride 110 mEq/L (98-109); Glucose 209 mg/dL (70-99); Osmolality,Calculated 290 (280-300); Potassium 3.3 mEq/L (3.5-4.5); Sodium 138 mEq/L (136-145); eGFR For African Americans > 60 (> 60); eGFR For Non-African Americans > 60 (> 60)
[2016-08-07 09:45] LABS: Basophils % 0.3 %; Eosinophils # 0.1 K/mcL (0.0-0.6); Eosinophils % 1.4 %; Hematocrit 29.5 % (35.3-44.9); Hemoglobin 9.2 g/dL (11.5-15.4); Immature Platelets 2.9 % (1.1-6.1); Lymphocytes # 1.6 K/mcL (0.6-4.6); Lymphocytes % 16.8 %; Mean Corpuscular HGB Conc 31.2 g/dL (31.6-35.5); Mean Corpuscular Hemoglobin 24.1 pg (28.0-33.3); Mean Corpuscular Volume 77.4 fL (83.0-100.0); Mean Platelet Volume 10.4 fL (9.4-12.4); Monocytes # 0.5 K/mcL (0.0-1.3); Neutrophils # 7.2 K/mcL (1.6-8.9); Platelet Count 191 K/mcL (140-400); Red Blood Count 3.81 M/mcL (3.82-4.97); Red Cell Distribution Width 16.7 % (11.5-14.5); Segmented Neutrophils % 75.5 %
--- NOTE | 2016-08-07 13:25 | General Surgery Progress Note ---
Date of Encounter: 08/07/16 Time of Encounter: 13:24 - Assessment and Plan (1) Cholelithiasis Current Visit: Yes Status: Resolved POD#2 s/p Cholecystectomy Afebrile Tolerating diabetic diet. Supportive care/pain control Follow up with Surgery as outpatient on 08/20/16. Surgery will sign off at this time, thank you for invoving us in this patient's care, please feel free to contact us with any questions. Qualifiers: Cholelithiasis location: gallbladder Cholecystitis presence: with cholecystitis Cholecystitis acuity: acute Biliary obstruction: without biliary obstruction Qualified Code(s): K80.00 - Calculus of gallbladder with acute cholecystitis without obstruction (2) Intractable abdominal pain Current Visit: Yes Status: Acute Improving s/p cholecystectomy. Will increase Percocet 10/325 to Q4H and start ibuprofen 800mg TID Recommend discontinuing Dilaudid. (3) Diabetes mellitus, type II, insulin dependent Current Visit: No Status: Chronic Management per medicine service. (4) Paroxysmal atrial fibrillation Current Visit: No Status: Chronic (5) Hyperlipemia Current Visit: No Status: Chronic Qualifiers: Hyperlipidemia type: unspecified Qualified Code(s): E78.5 - Hyperlipidemia , unspecified (6) Obesity (BMI 30-39.9) Current Visit: No Status: Chronic (7) History of cerebral hemorrhage Current Visit: No Status: Chronic (8) HTN (hypertension) Current Visit: Yes Status: Acute Currently normotensive. Management per medicine service. Qualifiers: Hypertension type: essential hypertension Qualified Code(s): I10 - Essential (primary) hypertension (9) DVT prophylaxis Current Visit: Yes Status: Acute Heparin 5,000 SQ Q8H for prophylaxis. Subjective Patient reports: no new complaints, still having pain, tolerating a regular diet , flatus, no bowel movement, afebrile, other (dizziness) Objective Vital Signs - Last 8 Hours Temp Pulse Resp BP Pulse Ox 08/07/16 12:02 2 L 08/07/16 11:32 98.2 F 77 18 99/59 90 L 08/07/16 09:11 92 L 08/07/16 07:04 98.4 F 80 14 109/69 92 L 08/07/16 06:23 100 F H Intake and Output 01/23/17 01/24/17 01/24/17 23:59 07:59 15:59 Intake Total 340 / 340 220 / 220 100 / 100 Output Total 300 / 300 400 / 400 0 / 0 Balance 40 / 40 -180 / -180 100 / 100 Intake: IV Fluids 100 / 100 100 / 100 100 / 100 Flagyl 500 MG/100 ML 500 100 / 100 100 / 100 100 / 100 mg In 100 ml @ 100 mls/hr IVPB Q8HR [facility] Rx#: [id number] Oral 240 / 240 120 / 120 Output: Urine 300 / 300 400 / 400 0 / 0 Other: Meal Dinner Percent of Meal Consumed 5% Blood Glucose* 79 215 164 - General physical appearance well developed, well nourished, moderate pain - Eyes normal ocular movement - ENT normal mucosa, atraumatic, normocephalic - Neck Neck exam: trachea midline - Respiratory normal respiratory effort, clear to auscultation - Cardiovascular Cardiovascular exam: Present: RRR - Abdomen Abdomen: Present: bowel sounds present, soft, tender (expected post operative tenderness) - Incision Incision: Present: clean and dry, intact - Integumentary no rash - Neurologic CN 2-12 grossly intact - Psychiatric oriented to time, oriented to person, oriented to place, speech is normal, memory intact - Labs 08/07/16 09:37 08/07/16 08:19 Diabetes panel 08/07/16 Range/Units 08:19 Sodium 138 (136-145) mEq/L Potassium 3.3 L (3.5-4.5) mEq/L Chloride 110 H (98-109) mEq/L Carbon Dioxide 17 L (19-29) mEq/L BUN 8 (7-20) mg/dL Creatinine 0.64 (0.57-1.11) mg/dL Glucose 209 H (70-99) mg/dL Calcium 7.1 L (8.6-10.8) mg/dL Calcium panel 08/07/16 Range/Units 08:19 Calcium 7.1 L (8.6-10.8) mg/dL Pituitary panel 08/07/16 Range/Units 08:19 Sodium 138 (136-145) mEq/L Potassium 3.3 L (3.5-4.5) mEq/L Chloride 110 H (98-109) mEq/L Carbon Dioxide 17 L (19-29) mEq/L BUN 8 (7-20) mg/dL Creatinine 0.64 (0.57-1.11) mg/dL Glucose 209 H (70-99) mg/dL Calcium 7.1 L (8.6-10.8) mg/dL Adrenal panel 08/07/16 Range/Units 08:19 Sodium 138 (136-145) mEq/L Potassium 3.3 L (3.5-4.5) mEq/L Chloride 110 H (98-109) mEq/L Carbon Dioxide 17 L (19-29) mEq/L BUN 8 (7-20) mg/dL Creatinine 0.64 (0.57-1.11) mg/dL Glucose 209 H (70-99) mg/dL Calcium 7.1 L (8.6-10.8) mg/dL - VTE Documentation of Mechanical Device: Intermittent pneumatic compression device Consult Discharge Plan - Plan Additional Instructions: May shower. No lifting, pushing, pulling more than 15 pounds. No [address] til off narcotics. Wash incisions with soap and water. Referrals: Margoth Merrill CNP [Advanced Practice Nurse] - 08/20/16 8:45 am Prescriptions: OxyCODONE/APAP 5/325 [Percocet 5/325 MG] 1 each PO Q6HR PRN #30 tablet PRN Reason: Pain Docusate Sodium [Colace] 100 mg PO DAILY PRN 30 Days PRN Reason: Constipation
[2016-08-07] MEDS: Ibuprofen 800 MG TABLET PO SCH (16:03)
--- NOTE | 2016-08-07 16:06 | Internal Med Progress Note ---
Date of Encounter: 08/07/16 Time of Encounter: 16:03 - Assessment and plan (1) Cholecystitis Current Visit: Yes Status: Acute Assessment and plan: Acute cholecystitis secondary to cholelithiasis, status post laparoscopic cholecystectomy second postoperative day today. Complaining of abdominal pain at the site of the surgery, expected postoperatively. surgery has signed off . We will stop IV fluids, has been advanced to diabetic diet. Remains afebrile, no leukocytosis,postop H&H is stable. pain meds changed to oral. Possible discharge tomorrow. (2) HTN (hypertension) Current Visit: Yes Status: Acute Assessment and plan: Blood pressure is stable, will continue home medications. Continue to monitor. Qualifiers: Hypertension type: essential hypertension Qualified Code(s): I10 - Essential (primary) hypertension (3) Diabetes mellitus Current Visit: No Status: Chronic Assessment and plan: Continue the correctional insulin sliding scale. Will add prandial insulin with the diet. Monitor Accu-Cheks. Qualifiers: Diabetes mellitus type: type 2 Diabetes mellitus complication status: without complication Diabetes mellitus assistant terminal manager insulin use: with half-way use Qualified Code(s): E11.9 - Type 2 diabetes mellitus without complications ; Z79.4 - termite control service representative (current) use of insulin (4) Hyperlipemia Current Visit: No Status: Chronic Assessment and plan: Continue home medication. Qualifiers: Hyperlipidemia type: unspecified Qualified Code(s): E78.5 - Hyperlipidemia , unspecified (5) Obesity (BMI 30-39.9) Current Visit: No Status: Chronic - Time Spent With Patient 25 - 35 minutes - Subjective Interval history: Patient seen at the bedside, status post laparoscopic cholecystectomy with Dr. Brannon. POD#2, Complaining of persistent abdominal pain at the site of the surgery, no nausea or vomiting. diet has been advanced to diabetic diet. Has not had any bowel movement, remains afebrile. - Constitutional Vitals: Temp Pulse Resp BP Pulse Ox 99.3 F 86 14 108/67 95 08/07/16 14:29 08/07/16 14:29 08/07/16 14:29 08/07/16 14:29 08/07/16 14:29 General appearance: Present: A&O X 3, morbidly obese Exam: Neck supple Chest bilateral clear, no added sounds. CVS S1-S2, no murmurs rubs or gallops. Abdomen soft, mild tenderness on the right hypochondrium and epigastric region , bowel sounds are present, no rebound. Extremities no edema. Internal Medicine: Result - Labs CBC & Chem 7: 08/07/16 09:37 08/07/16 08:19 Labs: Short CBC 08/07/16 Range/Units 09:37 WBC 9.6 (4.3-11.1) K/mcL Hgb 9.2 L (11.5-15.4) g/dL Hct 29.5 L (35.3-44.9) % Plt Count 191 (140-400) K/mcL Neutrophils # 7.2 (1.6-8.9) K/mcL BMP 08/07/16 08:19 Sodium 138 Potassium 3.3 L Chloride 110 H Carbon Dioxide 17 L BUN 8 Creatinine 0.64 Glucose 209 H Calcium 7.1 L - VTE Documentation of Mechanical Device: Intermittent pneumatic compression device Consult Discharge Plan - Plan Additional Instructions: May shower. No lifting, pushing, pulling more than 15 pounds. No driving til off narcotics. Wash incisions with soap and water. Referrals: Margoth Merrill CNP [Advanced Practice Nurse] - 08/20/16 8:45 am Prescriptions: OxyCODONE/APAP 5/325 [Percocet 5/325 MG] 1 each PO Q6HR PRN #30 tablet PRN Reason: Pain Docusate Sodium [Colace] 100 mg PO DAILY PRN 30 Days PRN Reason: Constipation
[2016-08-07] MEDS: clonazePAM 0.5 MG TABLET PO SCH (20:55)
[2016-08-07] MEDS ORDERED: Insulin LISPRO 300 UNITS/3 ML VIAL SQ SCH (21:00)
[2016-08-08] MEDS: Ibuprofen 800 MG TABLET PO SCH ×2 (01:10→08:11)
[2016-08-08] MEDS: *HR* OxyCODONE/APAP 10/325 TABLET PO PRN ×2 (03:31→11:22)
[2016-08-08] MEDS: Insulin LISPRO 300 UNITS/3 ML VIAL SQ SCH ×4 (08:10→11:24)
[2016-08-08] MEDS: *HR* Heparin 5,000 UNIT/ML VIAL SQ SCH (08:11)
[2016-08-08] MEDS: Pantoprazole 40 MG VIAL IVP SCH (09:26)
[2016-08-08] MEDS: Pregabalin 50 MG CAPSULE PO SCH (09:27)
[2016-08-08] MEDS: Aspirin Enteric Coated 81 MG Tablet PO SCH (09:27)
[2016-08-08 11:36] VITALS: BP 137/82
--- NOTE | 2016-08-08 12:15 | Discharge Summary ---
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 insulin use: with senior care use Qualified Code(s): E11.9 - Type 2 diabetes mellitus without complications ; Z79.4 - senior living (current) use of insulin (4) Hyperlipemia Priority: Secondary Status: Chronic Qualifiers: Hyperlipidemia type: unspecified Qualified Code(s): E78.5 - Hyperlipidemia , unspecified (5) Obesity (BMI 30-39.9) Priority: Secondary Status: Chronic - Discharge Medications Prescriptions: OxyCODONE/APAP 5/325 [Percocet 5/325 MG] 1 each PO Q6HR PRN #30 tablet PRN Reason: Pain Docusate Sodium [Colace] 100 mg PO DAILY PRN 30 Days PRN Reason: Constipation Home Medications: Albuterol Sulfate [Proair Respiclick] 2 puff IH Q4H PRN 10/26/15 [History] Aspirin [Adult Low Dose Aspirin EC] 81 mg PO DAILY 10/26/15 [History] ClonazePAM [Klonopin] 0.5 mg PO HS 10/26/15 [History] Etonogestrel [Nexplanon] 68 mg SQ AD 10/26/15 [History] Ferrous Sulfate [Iron] 325 mg PO DAILY 10/26/15 [History] Insulin ASPART [Novolog Flexpen] 2 - 10 unit SQ TID 10/26/15 [History] Insulin Glargine,Hum.rec.anlog [Lantus Solostar] 50 unit SQ BID 10/26/15 [ History] Lisinopril [Zestril] 5 mg PO DAILY 10/26/15 [History] Metformin [Glucophage] 1,000 mg PO BIDWM 10/26/15 [History] Metoprolol [Lopressor] 12.5 mg PO BID 10/26/15 [History] Omeprazole [PriLOSEC] 40 mg PO DAILY 10/26/15 [History] Pregabalin [Lyrica] 100 mg PO BID 10/26/15 [History] Sertraline [Zoloft] 150 mg PO DAILY 10/26/15 [History] Trazodone HCl 50 - 100 mg PO HS PRN 10/26/15 [History] Ondansetron ODT [Zofran ODT] 4 mg SL Q6HR #14 tab.rapdis 02/26/16 [Rx] Atorvastatin Calcium [Lipitor] 20 mg PO DAILY #0 04/17/16 [Rx] Ibuprofen [Motrin] 600 mg PO Q6-8H PRN #30 tab 05/21/16 [Rx] Docusate Sodium [Colace] 100 mg PO DAILY PRN 30 Days 08/06/16 [Rx] OxyCODONE/APAP 5/325 [Percocet 5/325 MG] 1 each PO Q6HR PRN #30 tablet 08/06/16 [Rx] Allergies/Adverse Reactions: Allergies No Known Allergies Allergy (Verified 08/04/16 07:34) Date of admission: 08/04/16 11:45 Primary care physician: Joanne Paez Consults: 08/04/16 12:30 Consult to Surgery [CONS] Routine Consulting Provider: Brent Brannon Reason for Consult: cholecystitis Call Completed: Yes 08/07/16 13:11 Consult to Electronic Integrated Systems Mechanic [CONS] Routine Reason for SW Consult: qualified for Home O2 Discharging clinician: Andrea Parr Anticipated date of discharge: 08/08/16 - Patient Status Disposition: Home, Self-Care Condition: Fair Functional capacity at discharge: independent ambulation Overall status at discharge: patient is back to baseline - Discharge Instructions Follow Up With: Margoth Merrill [facility] [Advanced Practice Nurse] - 08/20/16 8:45 am Additional Instructions: May shower. No lifting, pushing, pulling more than 15 pounds. No driving til off narcotics. Wash incisions with soap and water. - Diet and Activity Activity: resume usual activities as tolerated Diet: advance to your usual diet Interval History: Ms. Jacome is a 50 year old female with a past medical history of diabetes type 2 insulin-dependent, atrial fibrillation noncompliant with Xareslto (not taking it for the last month) comes to the emergency room complaining of 2 weeks of right upper quadrant pain with epigastric pain, having nausea and bilious emesis. She also has complaint of watery diarrhea 6 times since yesterday without any block. The right upper quadrant pain gets worse after eating fatty meals, radiates to the back and is described as sharp 8 out of 10 in intensity. Glucose is 335. Ultrasound shows cholelithiasis with positive Velasquez sign concerning for cholecystitis. The patient is complaining of severe pain still. Dr. Brannon from the surgical service was contacted by ER physician for admission, but he requested for the patient to be admitted on the hospitalist service. The patient is to complain of severe nausea Hospital course: Patient was admitted for intractable abdominal pain, US confirmed cholelithiasis , general surgery was consulted, started on IV antibiotics and she underwent lap cholecystectomy. she imrpoved clinically post operatively and was stabl to be dc home today. She was tolerating oral diet, had bowel movements with no nausea or vomiting. She will follow up with surgery as outpatient Time spent discussing smoking cessation with patient: more than 10 minutes - Time Spent with Patient Total time spent providing and/or coordinating discharge services: Greater than 30 minutes - Constitutional Vitals: Temp Pulse Resp BP Pulse Ox 98.2 F 70 18 137/82 97 08/08/16 11:35 08/08/16 11:35 08/08/16 11:35 08/08/16 11:35 08/08/16 11:35 General appearance: Present: A&O X 3, morbidly obese Exam: General physical appearance well developed, well nourished, moderate pain - Eyes pinpoint pupil, normal ocular movement - ENT normal mucosa, no congestion, atraumatic, normocephalic - Neck trachea midline - Respiratory normal expansion, normal respiratory effort, clear to auscultation - Cardiovascular Cardiovascular exam: Present: RRR, no murmurs/rubs/gallops - Abdomen Abdomen general surgery: Present: bowel sounds present, soft, mild tenderness at the right upper quadrant, no rebound - Integumentary Integumentary general surgery: Present: warm and dry, no abnormal pigmentation - Neurologic Present: normal coordination. Absent: CN 2-12 grossly intact (uvula deviated to the left.), confused, disoriented, memory loss - Psychiatric Psychiatric general surgery: Present: appropriate, oriented to person, oriented to place, oriented to time, speech is normal, memory intact - VTE Documentation of Mechanical Device: Intermittent pneumatic compression device
== END 2016-08-08 13:15 | disposition home or self-care (01) ==
LOC: EMEROO 07:23 → 3ANU 07:23 → SUATTDRO 11:45 → 3ANU 12:14
PROVIDERS: ADMIT Internal Medicine Endocrinology, Diabetes & Metabolism; ATTEND Internal Medicine Endocrinology, Diabetes & Metabolism

== ENCOUNTER 2016-08-09 01:34 | Inpatient (IN) ==
--- NOTE | 2016-08-09 01:47 | Emergency Department Note ---
Disposition Forms: Work/School Release, ED Satisfaction Letter Abdominal Pain HPI - General Chief Complaint: ED Abdominal Pain Stated Complaint: RUQ pain, s/p james Time Seen by Provider: 08/09/16 01:44 Source: patient Mode of arrival: ambulatory Nursing Notes Reviewed: Yes Vital Signs Reviewed: Yes - Related Data Home Medications Medication Instructions Recorded Confirmed Albuterol Sulfate [Proair 2 puff IH Q4H PRN 10/26/15 08/04/16 Respiclick] Aspirin [Adult Low Dose Aspirin EC] 81 mg PO DAILY 10/26/15 08/04/16 ClonazePAM [Klonopin] 0.5 mg PO HS 10/26/15 08/04/16 Etonogestrel [Nexplanon] 68 mg SQ AD 10/26/15 08/04/16 Ferrous Sulfate [Iron] 325 mg PO DAILY 10/26/15 08/04/16 Insulin ASPART [Novolog Flexpen] 2 - 10 unit SQ TID 10/26/15 08/04/16 Insulin Glargine,Hum.rec.anlog 50 unit SQ BID 10/26/15 08/04/16 [Lantus Solostar] Lisinopril [Zestril] 5 mg PO DAILY 10/26/15 08/04/16 Metformin [Glucophage] 1,000 mg PO BIDWM 10/26/15 08/04/16 Metoprolol [Lopressor] 12.5 mg PO BID 10/26/15 08/04/16 Omeprazole [PriLOSEC] 40 mg PO DAILY 10/26/15 08/04/16 Pregabalin [Lyrica] 100 mg PO BID 10/26/15 08/04/16 Sertraline [Zoloft] 150 mg PO DAILY 10/26/15 08/04/16 Trazodone HCl 50 - 100 mg PO HS PRN 10/26/15 08/04/16 Previous Rx's Medication Instructions Recorded Ondansetron ODT [Zofran ODT] 4 mg SL Q6HR #14 tab.rapdis 02/26/16 Atorvastatin Calcium [Lipitor] 20 mg PO DAILY #0 04/17/16 Ibuprofen [Motrin] 600 mg PO Q6-8H PRN #30 tab 05/21/16 Docusate Sodium [Colace] 100 mg PO DAILY PRN 30 Days 08/06/16 OxyCODONE/APAP 5/325 [Percocet 1 each PO Q6HR PRN #30 tablet 08/06/16 5/325 MG] Allergies Allergy/AdvReac Type Severity Reaction Status Date / Time No Known Allergies Allergy Verified 08/04/16 07:34 Abdominal Pain PMH - Past Medical History Medical history: Reports: atrial fibrillation, COPD, CVA, diabetes, hypertension Female Surgical History: Reports: other LICENSE CLERK history: Reports: no LICENSE CLERK history Psychiatric history: Reports: anxiety, depression - Social History Smoking status: Never smoker Alcohol use: Reports: none Drug use: Reports: none
[2016-08-09] MEDS ORDERED: Ondansetron 4 MG/2 ML VIAL IV ONE (01:58)
[2016-08-09] MEDS ORDERED: *HR* HYDROmorphone (PF) 1 MG/ML SYRINGE IV ONE ×2 (01:58→05:06)
[2016-08-09 02:10] LABS: Basophils % 0.2 %; Eosinophils # 0.1 K/mcL (0.0-0.6); Eosinophils % 1.1 %; Hemoglobin 10.1 g/dL (11.5-15.4); Immature Granulocytes % 0.7 % (0-4); Immature Platelets 2.9 % (1.1-6.1); Lymphocytes # 0.8 K/mcL (0.6-4.6); Lymphocytes % 7.7 %; Mean Corpuscular HGB Conc 31.6 g/dL (31.6-35.5); Mean Corpuscular Hemoglobin 23.5 pg (28.0-33.3); Mean Corpuscular Volume 74.6 fL (83.0-100.0); Mean Platelet Volume 9.8 fL (9.4-12.4); Monocytes # 0.5 K/mcL (0.0-1.3); Monocytes % 4.7 %; Neutrophils # 8.5 K/mcL (1.6-8.9); Platelet Count 235 K/mcL (140-400); Red Blood Count 4.29 M/mcL (3.82-4.97); Red Cell Distribution Width 16.3 % (11.5-14.5); Segmented Neutrophils % 85.6 %
[2016-08-09] MEDS ORDERED: Ipratropium/Albuterol Neb 3 ML IH ONE (02:12)
[2016-08-09 02:24] LABS: Alanine Aminotransferase 35 Units/L (0-55); Albumin 2.8 g/dL (3.5-5.0); Alkaline Phosphatase 87 Units/L (38-126); Amylase 18 Units/L (25-125); Aspartate Amino Transferase 21 Units/L (5-34); BUN/Creatinine Ratio 8 (6-26); Bilirubin,Direct 0.3 mg/dL (0.0-0.5); Bilirubin,Indirect 0.4 mg/dL (0.0-1.2); Bilirubin,Total 0.7 mg/dL (0.2-1.2); Carbon Dioxide 21 mEq/L (19-29); Chloride 106 mEq/L (98-109); Globulin 2.9 g/dL (2.4-3.5); Glucose 247 mg/dL (70-99); Lipase 13 Units/L (8-78); Osmolality,Calculated 290 (280-300); Sodium 137 mEq/L (136-145); Total Protein 5.7 g/dL (6.0-8.3); eGFR For African Americans > 60 (> 60); eGFR For Non-African Americans > 60 (> 60)
[2016-08-09 02:25] LABS: Blood Urea Nitrogen 5 mg/dL (7-20); Calcium 8.2 mg/dL (8.6-10.8)
[2016-08-09 02:48] LABS: Bilirubin,Urine Negative (Negative); Blood,Urine Negative (Negative); Clarity,Urine Slightly Cloudy (Clear); Color,Urine Yellow (Yellow); Glucose,Urine (UA) 500 mg/dL (Normal); Ketones,Urine 40 mg/dL (Negative); Leukocyte Esterase,Urine Negative (Negative); Nitrite,Urine Negative (Negative); Protein,Urine Negative (Neg-Trace); Urobilinogen,Urine Normal (Normal)
[2016-08-09 02:56] LABS: Ionized Calcium 1.04 mmol/L (1.15-1.35)
[2016-08-09 02:58] LABS: RBC,Urine 0-3 per hpf (0-3); Squamous Epithelial Cell,Urine Moderate per lpf (None-Few); WBC,Urine 0-3 per hpf (0-3)
[2016-08-09 02:59] LABS: Bacteria,Urine Few per hpf (None-Few)
[2016-08-09 03:02] LABS: Magnesium 1.4 mg/dL (1.6-2.6)
--- NOTE | 2016-08-09 05:59 | Emergency Department Note ---
Disposition Clinical Impression: Postoperative abdominal pain, CHF (congestive heart failure) Respiratory failure Qualifiers: Chronicity: acute Respiratory failure complication: hypoxia Qualified Code(s): J96.01 - Acute respiratory failure with hypoxia Disposition: Admitted As Inpatient Condition: Good Referrals: Joanne Paez MD [Primary Care Provider] - Forms: ED Satisfaction Letter, Work/School Release SOB HPI - General Chief Complaint: ED Abdominal Pain Stated Complaint: RUQ pain, s/p james Time Seen by Provider: 08/09/16 01:44 Source: patient Limitations: no limitations Nursing Notes Reviewed: Yes Vital Signs Reviewed: Yes - History of Present Illness Patient is a 50-year-old female she states with a history of COPD he is here for shortness of breath. She was discharged today she is postoperative for a cholecystectomy she qualified for home oxygen but she declined oxygen therapy. She states between the pain and shortness of breath she could not take it at home any longer and came into the ER. She states she is dyspneic at rest without any exertion. Pt Subjective Complaint: shortness of breath Onset (ago): hour(s) (6) Severity: moderate Consistency/Duration: gradually worsening Improves with: rest Worsens with: exertion Known history of: COPD Associated symptoms: Denies: chest pain, fever, sputum production Treatment prior to arrival: bronchodilator - Related Data Home Medications Medication Instructions Recorded Confirmed Albuterol Sulfate [Proair 2 puff IH Q4H PRN 10/26/15 08/04/16 Respiclick] Aspirin [Adult Low Dose Aspirin EC] 81 mg PO DAILY 10/26/15 08/04/16 ClonazePAM [Klonopin] 0.5 mg PO HS 10/26/15 08/04/16 Etonogestrel [Nexplanon] 68 mg SQ AD 10/26/15 08/04/16 Ferrous Sulfate [Iron] 325 mg PO DAILY 10/26/15 08/04/16 Insulin ASPART [Novolog Flexpen] 2 - 10 unit SQ TID 10/26/15 08/04/16 Insulin Glargine,Hum.rec.anlog 50 unit SQ BID 10/26/15 08/04/16 [Lantus Solostar] Lisinopril [Zestril] 5 mg PO DAILY 10/26/15 08/04/16 Metformin [Glucophage] 1,000 mg PO BIDWM 10/26/15 08/04/16 Metoprolol [Lopressor] 12.5 mg PO BID 10/26/15 08/04/16 Omeprazole [PriLOSEC] 40 mg PO DAILY 10/26/15 08/04/16 Pregabalin [Lyrica] 100 mg PO BID 10/26/15 08/04/16 Sertraline [Zoloft] 150 mg PO DAILY 10/26/15 08/04/16 Trazodone HCl 50 - 100 mg PO HS PRN 10/26/15 08/04/16 Previous Rx's Medication Instructions Recorded Ondansetron ODT [Zofran ODT] 4 mg SL Q6HR #14 tab.rapdis 02/26/16 Atorvastatin Calcium [Lipitor] 20 mg PO DAILY #0 04/17/16 Ibuprofen [Motrin] 600 mg PO Q6-8H PRN #30 tab 05/21/16 Docusate Sodium [Colace] 100 mg PO DAILY PRN 30 Days 08/06/16 OxyCODONE/APAP 5/325 [Percocet 1 each PO Q6HR PRN #30 tablet 08/06/16 5/325 MG] Allergies Allergy/AdvReac Type Severity Reaction Status Date / Time No Known Allergies Allergy Verified 08/04/16 07:34 All systems ED: reviewed and negative except as stated. Constitutional: Denies: fever, chills Gastrointestinal: Reports: abdominal pain Past Medical History - Past Medical History Source: patient, old records reviewed, nursing notes reviewed Medical history: Reports: atrial fibrillation, COPD, CVA, diabetes, hypertension , myocardial infarction Surgical history: Reports: Psychiatric history: Reports: anxiety, depression DRESS DRAPER history: Reports: no DRESS DRAPER history - Social History Smoking Status: Never smoker Smokeless Tobacco Status: No Alcohol use: Reports: none Drug use: Reports: none Physical Exam - General Limitations: no limitations General appearance: alert, in no apparent distress, appears intoxicated - Head Head exam: atraumatic, normocephalic, normal inspection - Eye Eye exam: Present: normal appearance, PERRL, EOMI - Expanded Eye Exam Pupils: Left: reactive - ENT ENT exam: normal exam, normal oropharynx, mucous membranes moist - Expanded ENT Exam External ear exam: Present: normal external inspection Mouth exam: Present: normal external inspection Teeth exam: Present: normal inspection Throat exam: Present: normal inspection - Neck Neck exam: Present: normal inspection, full ROM, trachea midline - Chest Chest inspection: Present: normal inspection, symmetric chest wall rise - Respiratory Respiratory exam: Present: wheezes (mild bilat), prolonged expiratory phase - Cardiovascular Cardiovascular exam: Present: tachycardia - Abdominal Exam Abdominal exam: Present: soft, tenderness. Absent: distention, rebound Abdominal tenderness: Present: RUQ, moderate - Extremities Exam Extremities exam: Present: normal inspection, full ROM. Absent: tenderness, pedal edema - Expanded Upper Extremity Exam Shoulder exam: Present: normal inspection, full ROM Arm exam: Present: normal inspection, full ROM Elbow exam: Present: normal inspection, full ROM Forearm/Wrist exam: Present: normal inspection, full ROM Hand exam: Present: normal inspection, full ROM Vascular exam: Normal: capillary refill, radial pulse - Expanded Lower Extremity Exam Hip/Pelvis exam: Present: normal inspection, full ROM Upper leg exam: Present: normal inspection, full ROM Knee exam: Present: normal inspection, full ROM Lower leg exam: Present: normal inspection, full ROM Ankle exam: Present: normal inspection, full ROM Foot/toe exam: Present: normal inspection, full ROM Neurovascular/Tendon exam: Absent: motor deficit, sensory deficit, tendon deficit - Back Exam Back exam: Present: normal inspection, full ROM. Absent: tenderness - Neurological Exam Neurological exam: Present: alert, oriented X3 - Expanded Neurological Exam Patient oriented to: Present: person, place, time Coma Scale Eye Opening: Spontaneous Coma Scale Motor Response: Obeys Commands Coma Scale Verbal Response: Oriented Coma Scale Total: 15 - Psychiatric Psychiatric exam: Present: normal affect, normal mood - Skin Skin exam: Present: warm, dry, intact, normal color Course Vital Signs Temperature 99.6 F 08/09/16 01:38 Pulse Rate 88 08/09/16 01:38 Respiratory Rate 20 08/09/16 01:38 Blood Pressure 171/83 08/09/16 01:38 O2 Sat by Pulse Oximetry 82 L 08/09/16 01:38 Temperature 99.6 F 08/09/16 01:38 Pulse Rate 87 08/09/16 05:02 Respiratory Rate 16 08/09/16 05:02 Blood Pressure 153/77 08/09/16 05:02 O2 Sat by Pulse Oximetry 94 L 08/09/16 05:02 Oxygen Delivery Oxygen Delivery Nasal Cannula Shortness of Breath/Dyspnea - Differential Diagnosis Likely: acute exacerbation of chronic obstructive airways disease, congestive heart failure, pneumonia, asthma with exacerbation, pulmonary embolism, pneumothorax, arrhythmia - Medical Records Medical records reviewed: Yes I reviewed the patient's medical records. - Lab Data Lab results reviewed: Yes I reviewed the patient's lab results. Result diagrams: 08/09/16 02:02 08/09/16 02:02 Lab Results 08/09/16 08/09/16 08/09/16 Range/Units 02:02 02:02 02:02 WBC 9.9 (4.3-11.1) K/mcL RBC 4.29 (3.82-4.97) M/mcL Hgb 10.1 L (11.5-15.4) g/dL Hct 32.0 L (35.3-44.9) % MCV 74.6 L (83.0-100.0) fL MCH 23.5 L (28.0-33.3) pg MCHC 31.6 (31.6-35.5) g/dL RDW 16.3 H (11.5-14.5) % Plt Count 235 (140-400) K/mcL MPV 9.8 (9.4-12.4) fL Immature Gran % 0.7 (0-4) % Seg Neutrophils % 85.6 % Lymphocytes % 7.7 % Monocytes % 4.7 % Eosinophils % 1.1 % Basophils % 0.2 % Neutrophils # 8.5 (1.6-8.9) K/mcL Lymphocytes # 0.8 (0.6-4.6) K/mcL Monocytes # 0.5 (0.0-1.3) K/mcL Eosinophils # 0.1 (0.0-0.6) K/mcL Basophils # 0.0 (0.0-0.2) K/mcL Immature Plt Fraction 2.9 (1.1-6.1) % Sodium 137 (136-145) mEq/L Potassium 3.0 L (3.5-4.5) mEq/L Chloride 106 (98-109) mEq/L Carbon Dioxide 21 (19-29) mEq/L BUN 5 L (7-20) mg/dL Creatinine 0.65 (0.57-1.11) mg/dL Est GFR ( Amer) > 60 (> 60) Est GFR (Non-Af Amer) > 60 (> 60) BUN/Creatinine Ratio 8 (6-26) Glucose 247 H (70-99) mg/dL Calculated Osmolality 290 (280-300) Calcium 8.2 L D (8.6-10.8) mg/dL Ionized Calcium 1.04 L (1.15-1.35) mmol/L Magnesium 1.4 L (1.6-2.6) mg/dL Total Bilirubin 0.7 (0.2-1.2) mg/dL Direct Bilirubin 0.3 (0.0-0.5) mg/dL Indirect Bilirubin 0.4 (0.0-1.2) mg/dL AST 21 (5-34) Units/L ALT 35 (0-55) Units/L Alkaline Phosphatase 87 (38-126) Units/L B-Natriuretic Peptide (0-100) pg/mL Serum Total Protein 5.7 L (6.0-8.3) g/dL Albumin 2.8 L (3.5-5.0) g/dL Globulin 2.9 (2.4-3.5) g/dL Albumin/Globulin Ratio 1.0 L (1.1-2.2) Amylase 18 L (25-125) Units/L Lipase 13 (8-78) Units/L Urine Color (Yellow) Urine Clarity (Clear) Urine pH (5.0-8.0) pH Units Ur Specific [place] (1.010-1.025) Urine Protein (Neg-Trace) mg/dL Urine Glucose (UA) (Normal) mg/dL Urine Ketones (Negative) mg/dL Urine Blood (Negative) Urine Nitrite (Negative) Urine Bilirubin (Negative) Urine Urobilinogen (Normal) mg/dL Ur Leukocyte Esterase (Negative) Urine Microscopic RBC (0-3) per hpf Urine Microscopic WBC (0-3) per hpf Ur Squamous Epith Cells (None-Few) per lpf Urine Bacteria (None-Few) per hpf Ur Culture Indicated? (NO) 08/09/16 08/09/16 Range/Units 02:02 02:40 WBC (4.3-11.1) K/mcL RBC (3.82-4.97) M/mcL Hgb (11.5-15.4) g/dL Hct (35.3-44.9) % MCV (83.0-100.0) fL MCH (28.0-33.3) pg MCHC (31.6-35.5) g/dL RDW (11.5-14.5) % Plt Count (140-400) K/mcL MPV (9.4-12.4) fL Immature Gran % (0-4) % Seg Neutrophils % % Lymphocytes % % Monocytes % % Eosinophils % % Basophils % % Neutrophils # (1.6-8.9) K/mcL Lymphocytes # (0.6-4.6) K/mcL Monocytes # (0.0-1.3) K/mcL Eosinophils # (0.0-0.6) K/mcL Basophils # (0.0-0.2) K/mcL Immature Plt Fraction (1.1-6.1) % Sodium (136-145) mEq/L Potassium (3.5-4.5) mEq/L Chloride (98-109) mEq/L Carbon Dioxide (19-29) mEq/L BUN (7-20) mg/dL Creatinine (0.57-1.11) mg/dL Est GFR ( Amer) (> 60) Est GFR (Non-Af Amer) (> 60) BUN/Creatinine Ratio (6-26) Glucose (70-99) mg/dL Calculated Osmolality (280-300) Calcium (8.6-10.8) mg/dL Ionized Calcium (1.15-1.35) mmol/L Magnesium (1.6-2.6) mg/dL Total Bilirubin (0.2-1.2) mg/dL Direct Bilirubin (0.0-0.5) mg/dL Indirect Bilirubin (0.0-1.2) mg/dL AST (5-34) Units/L ALT (0-55) Units/L Alkaline Phosphatase (38-126) Units/L B-Natriuretic Peptide 319 H (0-100) pg/mL Serum Total Protein (6.0-8.3) g/dL Albumin (3.5-5.0) g/dL Globulin (2.4-3.5) g/dL Albumin/Globulin Ratio (1.1-2.2) Amylase (25-125) Units/L Lipase (8-78) Units/L Urine Color Yellow (Yellow) Urine Clarity Slightly Cloudy A (Clear) Urine pH 7.0 (5.0-8.0) pH Units Ur Specific [place] 1.020 (1.010-1.025) Urine Protein Negative (Neg-Trace) mg/dL Urine Glucose (UA) 500 H (Normal) mg/dL Urine Ketones 40 H (Negative) mg/dL Urine Blood Negative (Negative) Urine Nitrite Negative (Negative) Urine Bilirubin Negative (Negative) Urine Urobilinogen Normal (Normal) mg/dL Ur Leukocyte Esterase Negative (Negative) Urine Microscopic RBC 0-3 (0-3) per hpf Urine Microscopic WBC 0-3 (0-3) per hpf Ur Squamous Epith Cells Moderate H (None-Few) per lpf Urine Bacteria Few (None-Few) per hpf Ur Culture Indicated? NO (NO) - Radiology Data Radiology results reviewed: Yes I reviewed the patient's radiology results.
[2016-08-09] MEDS ORDERED: Furosemide 40 MG/4 ML VIAL IVP ONE (06:18)
[2016-08-09] MEDS ORDERED: 0.9 % Sodium Chloride 1,000 ML IVC ONE (06:51)
[2016-08-09] MEDS ORDERED: Dextrose Gel 15 GM PO PRN ×2 (11:12)
[2016-08-09] MEDS ORDERED: *HR* Dextrose 50 % in Water (Syg) 50 ML SYRINGE IVP PRN (11:12)
[2016-08-09] MEDS ORDERED: D5% in Water 1,000 ML IV PRN (11:12)
[2016-08-09] MEDS ORDERED: Acetaminophen 325 MG TABLET PO PRN (11:14)
[2016-08-09] MEDS ORDERED: Ondansetron 4 MG/2 ML VIAL IVP PRN (11:14)
[2016-08-09] MEDS ORDERED: Naloxone 0.4 MG/ML INJ IVP PRN (11:14)
[2016-08-09] MEDS ORDERED: *HR* HYDROmorphone (PF) 1 MG/ML SYRINGE IVP PRN (11:14)
--- NOTE | 2016-08-09 11:43 | Internal Med History&Physical ---
Date of Encounter: 08/09/16 Time of Encounter: 10:45 Assessment and Plan (1) Acute on chronic diastolic heart failure Current visit: Yes Status: Acute The patient has acute and chronic respiratory failure. CT of the chest shows findings concerning for intra-alveolar fluid secondary to CHF exacerbation and possible pneumonia. BNP is elevated. Echocardiogram per chart review from reveals EF of 55% with normal systolic function, no valvular dysfunction. Plan: IV Lasix 20 mg twice a day. Repeat echocardiogram. Telemetry. Salt restricted diet. Trend troponin to rule out ACS as a possible cause for CHF exacerbation. (2) Acute and chronic respiratory failure with hypoxia Current visit: Yes Status: Acute Oxygen by nasal cannula at 2 L/m. Check home oxygen qualification prior to discharge. (3) Healthcare associated bacterial pneumonia Current visit: Yes Status: Acute Check blood cultures, respiratory culture, start broad-spectrum IV antibiotics with Zosyn and vancomycin. His trunk ulceration as MRSA pneumonia given her history of recent hospitalization, intubation and history of positive nasal swab for MRSA in the past. She is at high risk for morbidity mortality and complications due to treatment with vancomycin which requires blood level monitoring for toxicity, acute heart failure, respiratory failure and treatment with intravenous opiates for pain. (4) Intra-abdominal abscess Current visit: Yes Status: Acute Surgical consult. I have contacted and discussed the case with Dr. Corey who recommends nuclear medicine hepatobiliary scan. Pain control with IV hydromorphone. IV antibiotics for broad-spectrum coverage. (5) DVT prophylaxis Current visit: No Status: Acute SCDs for now. Start Lovenox in the morning if she is nonoperative. (6) HTN (hypertension) Current visit: No Status: Acute Resume home meds. Qualifiers: Hypertension type: essential hypertension Qualified Code(s): I10 - Essential (primary) hypertension (7) Diabetes mellitus, type II, insulin dependent Current visit: No Status: Chronic Insulin Levemir and Humalog sliding scale. (8) Hemiparesis affecting left side as late effect of stroke Current visit: No Status: Chronic PTOT. (9) Hyperlipemia Current visit: No Status: Chronic Continue Lipitor. Qualifiers: Hyperlipidemia type: unspecified Qualified Code(s): E78.5 - Hyperlipidemia , unspecified (10) Obesity (BMI 30-39.9) Current visit: No Status: Chronic Outpatient follow-up. (11) Paroxysmal atrial fibrillation Current visit: No Status: Chronic Telemetry monitoring. Echocardiogram. She is a not a good candidate for anticoagulation due to history of intracranial bleed and history of intractable vaginal bleed when she was receiving treatment with Xarelto. She does have a very high risk for recurrent CVA due to prior history of CVA, heart failure hypertension and diabetes. Anticoagulation should be readdressed prior to discharge once her acute issues are cared for. (12) Hypokalemia Current visit: Yes Status: Acute Oral and IV potassium repletion. Internal Medicine - H&P: HPI Chief complaint: Shortness of breath Admitted From: Emergency Dept Plans for Post Hospital Care: Home History of present illness: Ms. Jacome is a 50 year old female with past medical history significant for COPD , CHF and recent cholecystectomy who presented to the hospital for shortness of breath. She was discharged home yesterday. She reported right upper quadrant abdominal pain which this morning became severe, sharp, graded as 9/10, associated with nausea, no vomiting, patient had a regular bowel movement today , subjective fevers without measured temperature of 100.1. The pain did not improve with use of Percocet. In the emergency department she was noted to be hypoxic with an oxygen saturation of 82% on room air. This came up to 94% on supplemental oxygen. A CT of the abdomen and pelvis revealed findings concerning for a cholecystic fossa abscess as well as possible pneumonia. A 10 point review of systems was positive as described in the history of present illness, additionally positive for chronic palpitations secondary to atrial fibrillation, positive for mild left upper extremity weakness secondary to previous stroke, positive for midsternal chest pain secondary to trauma, otherwise negative except as above. Past Med Surg Social Fam HX - Past Medical History Medical history: atrial fibrillation, COPD, CVA, diabetes, hypertension, myocardial infarction Psychiatric history: anxiety, depression - Past Surgical History Surgical History: - Social History Smoking Status: Never smoker Smokeless Tobacco Status: No Alcohol use: none Drug use: none - Family History Mother History Unknown: Yes Living Status: Hx Family Cardiac Disorders: Yes Hx Family Respiratory Disorders: Yes (copd) Hx Family Cancer: Yes (lung cancer) Hx Family Endocrine Disorder: Yes (DM type II) Father History Unknown: Yes Living Status: Hx Family Cardiac Disorders: Yes Hx Family Cancer: Yes (stomach cancer) Hx Family Endocrine Disorder: Yes (DM) Internal Medicine - H&P: Meds Albuterol Sulfate [Proair Respiclick] 2 puff IH Q4H PRN 10/26/15 [History] Aspirin [Adult Low Dose Aspirin EC] 81 mg PO DAILY 10/26/15 [History] ClonazePAM [Klonopin] 0.5 mg PO HS 10/26/15 [History] Etonogestrel [Nexplanon] 68 mg SQ AD 10/26/15 [History] Ferrous Sulfate [Iron] 325 mg PO DAILY 10/26/15 [History] Insulin ASPART [Novolog Flexpen] 2 - 10 unit SQ TID 10/26/15 [History] Insulin Glargine,Hum.rec.anlog [Lantus Solostar] 50 unit SQ BID 10/26/15 [ History] Lisinopril [Zestril] 5 mg PO DAILY 10/26/15 [History] Metformin [Glucophage] 1,000 mg PO BIDWM 10/26/15 [History] Metoprolol [Lopressor] 12.5 mg PO BID 10/26/15 [History] Omeprazole [PriLOSEC] 40 mg PO DAILY 10/26/15 [History] Pregabalin [Lyrica] 100 mg PO BID 10/26/15 [History] Sertraline [Zoloft] 150 mg PO DAILY 10/26/15 [History] Trazodone HCl 50 - 100 mg PO HS PRN 10/26/15 [History] Atorvastatin Calcium [Lipitor] 20 mg PO DAILY #0 04/17/16 [Rx] Ibuprofen [Motrin] 600 mg PO Q6-8H PRN #30 tab 05/21/16 [Rx] Docusate Sodium [Colace] 100 mg PO DAILY PRN 30 Days 08/06/16 [Rx] OxyCODONE/APAP 5/325 [Percocet 5/325 MG] 1 each PO Q6HR PRN #30 tablet 08/06/16 [Rx] Allergies No Known Allergies Allergy (Verified 08/09/16 09:38) All Systems PM: A 10-system review of systems was performed and is negative for pertinent findings except as documented above in the HPI. - Constitutional Vitals: Temp Pulse Resp BP Pulse Ox 98.4 F 120 18 131/75 93 L 08/09/16 11:28 08/09/16 11:28 08/09/16 11:28 08/09/16 11:28 08/09/16 11:28 General appearance: Present: mild distress, A&O X 3 - Head Head exam: Present: atraumatic, normocephalic - Eye Eye exam: Present: PERRL, conjuntiva pink, sclera anicteric Pupils: Present: PERRL - Neck Neck exam general surgery: Present: supple, trachea midline. Absent: lymphadenopathy - Respiratory Respiratory exam: Present: CTAB. Absent: accessory muscle use, rales, rhonchi, wheezes - Cardiovascular Cardiovascular exam: Present: RRR, +S1, +S2. Absent: diastolic murmur, gallop, rubs, systolic murmur - GI/Abdominal GI/Abdominal exam: Present: normal bowel sounds, soft, tenderness, no peritoneal signs. Absent: distended - Extremities Exam Extremities exam: Present: warm, radial pulses palpable and symetrical. Absent : calf tenderness, cyanotic, pedal edema - Neurological Exam Neurological exam: Present: CN II-XII intact, oriented X3. Absent: pronater drift, facial droop, speech deficit - Skin Skin exam: Present: dry, intact Internal Med - H&P Results - Labs CBC & Chem 7: 08/09/16 02:02 08/09/16 02:02 - EKG Data EKG comments: 08/09/16 11:47 EKG reviewed by myself reveals normal sinus rhythm, rate 75, normal axis and intervals, no acute ST or T-wave changes.
[2016-08-09] MEDS ORDERED: Vancomycin (wt based) 1,000 MG VIAL IVPB SCH (12:00)
[2016-08-09] MEDS: Aspirin Enteric Coated 81 MG Tablet PO SCH (12:16)
[2016-08-09] MEDS: Insulin LISPRO 300 UNITS/3 ML VIAL SQ SCH ×5 (12:24→21:47)
[2016-08-09] MEDS: Vancomycin 1,500 MG in D5% in Water 250 ML IVPB SCH (12:32)
[2016-08-09] MEDS: Insulin DETEMIR 100 UNIT/ML X5UNITS SQ SCH ×2 (12:43→21:41)
[2016-08-09] MEDS: Albuterol 2.5 MG/3 ML NEBULIZER IH SCH ×2 (15:47→22:39)
[2016-08-09] MEDS: Furosemide 20 MG/2 ML VIAL IVP SCH (16:16)
[2016-08-09] MEDS: Pantoprazole 40 MG VIAL IVP SCH (16:16)
[2016-08-09] MEDS: *HR* HYDROmorphone (PF) 1 MG/ML SYRINGE IVP PRN ×2 (16:16→20:01)
[2016-08-09] MEDS: Piperacillin/Tazobactam 3.375 GM in D5% in Water (Mini-Bag+) 100 ML IVPB SCH (16:17)
[2016-08-09] MEDS: clonazePAM 0.5 MG TABLET PO SCH (21:41)
[2016-08-09] MEDS: Pregabalin 50 MG CAPSULE PO SCH (21:42)
[2016-08-10] MEDS: *HR* HYDROmorphone (PF) 1 MG/ML SYRINGE IVP PRN ×7 (00:07→23:53)
[2016-08-10] MEDS: Vancomycin 1,500 MG in D5% in Water 250 ML IVPB SCH ×2 (00:11→12:09)
[2016-08-10] MEDS: Piperacillin/Tazobactam 3.375 GM in D5% in Water (Mini-Bag+) 100 ML IVPB SCH ×3 (00:22→15:57)
[2016-08-10] MEDS: Albuterol 2.5 MG/3 ML NEBULIZER IH SCH ×3 (04:07→10:43)
[2016-08-10] MEDS ORDERED: *HR* Enoxaparin 40 MG/0.4 ML SYRINGE SQ SCH (06:00)
[2016-08-10 06:29] LABS: INR 1.2; Prothrombin Time 12.7 Seconds (9.4-12.1)
[2016-08-10 06:31] LABS: Basophils % 0.4 %; Eosinophils # 0.2 K/mcL (0.0-0.6); Hematocrit 32.7 % (35.3-44.9); Hemoglobin 10.6 g/dL (11.5-15.4); Immature Granulocytes % 0.7 % (0-4); Lymphocytes # 1.1 K/mcL (0.6-4.6); Lymphocytes % 14.8 %; Mean Corpuscular HGB Conc 32.4 g/dL (31.6-35.5); Mean Corpuscular Volume 74.1 fL (83.0-100.0); Mean Platelet Volume 9.9 fL (9.4-12.4); Monocytes # 0.4 K/mcL (0.0-1.3); Monocytes % 5.8 %; Neutrophils # 5.5 K/mcL (1.6-8.9); Platelet Count 229 K/mcL (140-400); Red Blood Count 4.41 M/mcL (3.82-4.97); Red Cell Distribution Width 16.3 % (11.5-14.5); Segmented Neutrophils % 75.3 %
[2016-08-10 06:38] LABS: Alanine Aminotransferase 24 Units/L (0-55); Albumin 2.6 g/dL (3.5-5.0); Albumin/Globulin Ratio 0.8 (1.1-2.2); Alkaline Phosphatase 78 Units/L (38-126); Aspartate Amino Transferase 18 Units/L (5-34); BUN/Creatinine Ratio 10 (6-26); Bilirubin,Total 0.8 mg/dL (0.2-1.2); Blood Urea Nitrogen 6 mg/dL (7-20); Calcium 8.4 mg/dL (8.6-10.8); Carbon Dioxide 28 mEq/L (19-29); Chloride 100 mEq/L (98-109); Globulin 3.1 g/dL (2.4-3.5); Glucose 236 mg/dL (70-99); Magnesium 1.6 mg/dL (1.6-2.6); Osmolality,Calculated 291 (280-300); Potassium 2.6 mEq/L (3.5-4.5); Sodium 138 mEq/L (136-145); Total Protein 5.7 g/dL (6.0-8.3); eGFR For African Americans > 60 (> 60); eGFR For Non-African Americans > 60 (> 60)
[2016-08-10] MEDS ORDERED: Aminoglycoside Consult 1 EACH MC ONE (07:48)
[2016-08-10] MEDS: Aspirin Enteric Coated 81 MG Tablet PO SCH (08:31)
[2016-08-10] MEDS: *HR* Enoxaparin 40 MG/0.4 ML SYRINGE SQ SCH (08:31)
[2016-08-10] MEDS: Pregabalin 50 MG CAPSULE PO SCH ×2 (08:31→20:09)
[2016-08-10] MEDS: Insulin DETEMIR 100 UNIT/ML X5UNITS SQ SCH ×2 (08:32→23:50)
[2016-08-10] MEDS: Pantoprazole 40 MG VIAL IVP SCH (08:32)
[2016-08-10] MEDS: Insulin LISPRO 300 UNITS/3 ML VIAL SQ SCH ×7 (08:32→23:04)
[2016-08-10] MEDS: Furosemide 20 MG/2 ML VIAL IVP SCH ×2 (08:32→15:58)
--- NOTE | 2016-08-10 08:59 | ECHO - Doppler Report ---
Echocardiogram Name: Christie Jacome Date of Study: 08/09/2016 Date: 1965 Ht: 61.0 in Medical Record#: [id number] Age: 50 Wt: 198.0 lb Gender: Female BSA: 1.88 Order #: [id number] Location: [facility] Room #: 2A31 Reading Physician: Jamie Dow DO, TANJA, BASSAM PALMER Ammonia Operator: Gosia Churchill RDCS Ordering Physician: Eddy Taylor MD Primary Physician: Joanne Paez MD Indications: Congestive heart failure Impressions: LVEF 55%. Not all segments were well visualized, but overall LV function appears normal. Mildly dilated left ventricle. Normal left ventricular diastolic function. Normal right ventricular structure and function. No evidence of pulmonary hypertension. No significant valvular dysfunction. Left Ventricular Wall Motion: Rest Echo Findings All wall segments showed normal motion. Findings: Study Quality * Technically sub-optimal due to poor echocardiographic windows. ECG Findings * Normal sinus rhythm. Left Ventricle * LVEF 55%. * Not all segments were well visualized, but overall LV function appears normal. * Mildly dilated left ventricle. * Normal left ventricular diastolic function. Right Ventricle * Normal right ventricular structure and function. Left Atrium * Mildly dilated left atrium. Right Atrium * Normal right atrial size. Interatrial Septum * Interatrial septum not well evaluated. Aortic Valve * Aortic valve not well visualized. * No aortic regurgitation. * No aortic stenosis. Mitral Valve * Normal mitral valve structure and function. * No mitral regurgitation. * No mitral stenosis. Tricuspid Valve * Normal tricuspid valve structure and function. * Trace tricuspid regurgitation. * No evidence of pulmonary hypertension. Pulmonic Valve * Pulmonic valve not well visualized. * No pulmonic regurgitation. Aorta * Normally sized aortic root. Pericardium * The pericardium appears normal. IVC * Normal IVC dimensions and inspiratory collapse. Pulmonary Artery * Normal visualized portions of the main pulmonary artery. History Hypertension Diabetes Hypercholesteremia Family History of CAD Myocardial Infarction Congestive Heart Failure 10/27/2015 a Previous Echo was performed. Measurements: BP: 131/ 75 2D Normal Values RVIDd: 1.90 cm <2.7 cm IVSd: .79 cm 0.6 - 1.0 cm LVIDd: 5.76 cm 3.7 - 5.6 cm LVPWd: .80 cm 0.6 - 1.1 cm LVIDs: 3.17 cm 1.5 - 3.6 cm AO: 2.20 cm < 4.0 cm LA: 3.00 cm 2.0 - 4.0cm %FS: 47.80 cm >25 % LA volume: 65 Mitral Valve Peak E:1.30 m/sec Peak A:.79 m/sec E/A Ratio:1.6 Peak E' Lat Abdi:13.8 cm/s Peak E' Med Abdi:10.6 cm/s E/E' Lat Ratio:9.2 E/E' Med Ratio:12 Tricuspid Valve TV Regurg Peak Grad: 26.00mmHg TV Regurg Peak Abdi: 2.53m/sec Updated by Jamie Dow DO, TANJA, BASSAM PALMER on 08/10/2016 8:53:21 AM electronically signed on 08/10/2016 8:55:05 AM with status of Final Wall Motion Anton: 1=Normal, 2=Hypokinesis, 3=Akinesis, 4=Dyskinesis, 5=Aneurysmal, 6=Hyperkinetic, X=Not Visualized (Blank)=Missing
--- NOTE | 2016-08-10 09:33 | General Surgery Consult Note ---
Date of Encounter: 08/10/16 Time of Encounter: 09:00 Assessment and Plan (1) Postoperative abdominal pain Current Visit: Yes Status: Acute CT of abdomen/pelvis reviewed with Dr. Brannon- the collection in the RUQ is consistent with Nu-knit which was placed in the RUQ during surgery to achieve hemostasis. The material is an absorbable material which will break down over time. There is no evidence of post-operative abscess HIDA scan is negative for a leak Patient may follow-up as previously scheduled in the outpatient surgical office May advance to regular diet No surgical intervention indicated at this time Surgery will sign off at this time. Please call with any further questions/ concerns Follow Up With: Margoth Merrill TIE HACKER [Advanced Practice Nurse] - 08/20/16 8:45 am Additional Instructions: May shower. No lifting, pushing, pulling more than 15 pounds. No driving til off narcotics. Wash incisions with soap and water. History of Present Illness Consult date: 08/09/16 Reason for consult: abdominal pain Requesting physician: Eddy Taylor History of present illness: Ms. Jacome is a 50 year old female with multiple co-morbidities who is s/p laparoscopic cholecystectomy on 08/05/[address] Brannon for acute cholecystitis. She was discharged from the hospital on 08/08/16 to home and returned to the hospital approximately 12 hours later with complaints of shortness of breath and RUQ abdominal pain. The patient denies any increase in abdominal pain since discharge. Denies any fevers/chills. Denies any vomiting but does admit to some nausea. She has had a CT scan which shows concerns for RUQ abscess. Her WBC count is normal. We have been asked to see and evaluate the patient for abdominal pain and concern for abscess. Past Med Surg Social Fam HX - Past Medical History Medical history: atrial fibrillation, COPD, CVA, diabetes, hypertension, myocardial infarction Psychiatric history: anxiety, depression - Past Surgical History Surgical History: - Social History Smoking Status: Never smoker Smokeless Tobacco Status: No Alcohol use: none Drug use: none - Family History Mother History Unknown: Yes Living Status: Hx Family Cardiac Disorders: Yes Hx Family Respiratory Disorders: Yes (copd) Hx Family Cancer: Yes (lung cancer) Hx Family Endocrine Disorder: Yes (DM type II) Father History Unknown: Yes Living Status: Hx Family Cardiac Disorders: Yes Hx Family Cancer: Yes (stomach cancer) Hx Family Endocrine Disorder: Yes (DM) Medications and Allergies Albuterol Sulfate [Proair Respiclick] 2 puff IH Q4H PRN 10/26/15 [History] Aspirin [Adult Low Dose Aspirin EC] 81 mg PO DAILY 10/26/15 [History] ClonazePAM [Klonopin] 0.5 mg PO HS 10/26/15 [History] Etonogestrel [Nexplanon] 68 mg SQ AD 10/26/15 [History] Ferrous Sulfate [Iron] 325 mg PO DAILY 10/26/15 [History] Insulin ASPART [Novolog Flexpen] 2 - 10 unit SQ TID 10/26/15 [History] Insulin Glargine,Hum.rec.anlog [Lantus Solostar] 50 unit SQ BID 10/26/15 [ History] Lisinopril [Zestril] 5 mg PO DAILY 10/26/15 [History] Metformin [Glucophage] 1,000 mg PO BIDWM 10/26/15 [History] Metoprolol [Lopressor] 12.5 mg PO BID 10/26/15 [History] Omeprazole [PriLOSEC] 40 mg PO DAILY 10/26/15 [History] Pregabalin [Lyrica] 100 mg PO BID 10/26/15 [History] Sertraline [Zoloft] 150 mg PO DAILY 10/26/15 [History] Trazodone HCl 50 - 100 mg PO HS PRN 10/26/15 [History] Atorvastatin Calcium [Lipitor] 20 mg PO DAILY #0 04/17/16 [Rx] Ibuprofen [Motrin] 600 mg PO Q6-8H PRN #30 tab 05/21/16 [Rx] Docusate Sodium [Colace] 100 mg PO DAILY PRN 30 Days 08/06/16 [Rx] OxyCODONE/APAP 5/325 [Percocet 5/325 MG] 1 each PO Q6HR PRN #30 tablet 08/06/16 [Rx] Allergies No Known Allergies Allergy (Verified 08/09/16 09:38) Review of Systems All systems PM: reviewed and no additional remarkable complaints except as stated (in the HPI) All systems PM: A 10-system review of systems was performed and is negative for pertinent findings except as documented above in the HPI. General Surgery Exam Initial Vital Signs Temp Pulse Resp BP Pulse Ox 99.6 F 88 20 171/83 82 L 08/09/16 01:38 08/09/16 01:38 08/09/16 01:38 08/09/16 01:38 08/09/16 01:38 - General physical appearance well developed, well nourished, no distress, chronically ill - Eyes normal ocular movement - ENT normal mucosa, atraumatic, normocephalic - Neck trachea midline - Respiratory normal respiratory effort, clear to auscultation, other (diminished bibasilar bases, oxygen supplementation via nasal cannula) - Cardiovascular Cardiovascular exam: Present: RRR, 15, 16 - Abdomen Abdomen general surgery: Present: bowel sounds present, soft, tender (expected post-operative tenderness) Abdominal Tenderness: Present: RUQ - Incision Incision: Present: clean and dry, intact - Integumentary Integumentary general surgery: Present: warm and dry - Neurologic Present: CN 2-12 grossly intact - Psychiatric Psychiatric general surgery: Present: appropriate, oriented to person, oriented to place, oriented to time, speech is normal, memory intact Exam Initial Vital Signs Temp Pulse Resp BP Pulse Ox 99.6 F 88 20 171/83 82 L 08/09/16 01:38 08/09/16 01:38 08/09/16 01:38 08/09/16 01:38 08/09/16 01:38 Results - Labs 08/10/16 06:16 08/10/16 06:16 Abnormal lab results Hgb 10.6 g/dL (11.5-15.4) L 08/10/16 06:16 Hct 32.7 % (35.3-44.9) L 08/10/16 06:16 MCV 74.1 fL (83.0-100.0) L 08/10/16 06:16 MCH 24.0 pg (28.0-33.3) L 08/10/16 06:16 RDW 16.3 % (11.5-14.5) H 08/10/16 06:16 PT 12.7 Seconds (9.4-12.1) H 08/10/16 06:16 Potassium 2.6 mEq/L (3.5-4.5) L 08/10/16 06:16 BUN 6 mg/dL (7-20) L 08/10/16 06:16 Glucose 236 mg/dL (70-99) H 08/10/16 06:16 POC Glucose 193 (58-89) H 08/10/16 08:14 Calcium 8.4 mg/dL (8.6-10.8) L 08/10/16 06:16 Ionized Calcium 1.04 mmol/L (1.15-1.35) L 08/09/16 02:02 B-Natriuretic Peptide 319 pg/mL (0-100) H 08/09/16 02:02 Serum Total Protein 5.7 g/dL (6.0-8.3) L 08/10/16 06:16 Albumin 2.6 g/dL (3.5-5.0) L 08/10/16 06:16 Albumin/Globulin Ratio 0.8 (1.1-2.2) L 08/10/16 06:16 Amylase 18 Units/L (25-125) L 08/09/16 02:02 Urine Clarity Slightly Cloudy (Clear) A 08/09/16 02:40 Urine Glucose (UA) 500 mg/dL (Normal) H 08/09/16 02:40 Urine Ketones 40 mg/dL (Negative) H 08/09/16 02:40 Ur Squamous Epith Cells Moderate per lpf (None-Few) H 08/09/16 02:40 MRSA Surveillance Scrn Positive (Negative) A 08/09/16 10:35 Diabetes panel 08/10/16 Range/Units 06:16 Sodium 138 (136-145) mEq/L Potassium 2.6 L (3.5-4.5) mEq/L Chloride 100 (98-109) mEq/L Carbon Dioxide 28 (19-29) mEq/L BUN 6 L (7-20) mg/dL Creatinine 0.60 (0.57-1.11) mg/dL Glucose 236 H (70-99) mg/dL Calcium 8.4 L (8.6-10.8) mg/dL AST 18 (5-34) Units/L ALT 24 (0-55) Units/L Alkaline Phosphatase 78 (38-126) Units/L Albumin 2.6 L (3.5-5.0) g/dL Calcium panel 08/10/16 Range/Units 06:16 Calcium 8.4 L (8.6-10.8) mg/dL Albumin 2.6 L (3.5-5.0) g/dL Pituitary panel 08/10/16 Range/Units 06:16 Sodium 138 (136-145) mEq/L Potassium 2.6 L (3.5-4.5) mEq/L Chloride 100 (98-109) mEq/L Carbon Dioxide 28 (19-29) mEq/L BUN 6 L (7-20) mg/dL Creatinine 0.60 (0.57-1.11) mg/dL Glucose 236 H (70-99) mg/dL Calcium 8.4 L (8.6-10.8) mg/dL Adrenal panel 08/10/16 Range/Units 06:16 Sodium 138 (136-145) mEq/L Potassium 2.6 L (3.5-4.5) mEq/L Chloride 100 (98-109) mEq/L Carbon Dioxide 28 (19-29) mEq/L BUN 6 L (7-20) mg/dL Creatinine 0.60 (0.57-1.11) mg/dL Glucose 236 H (70-99) mg/dL Calcium 8.4 L (8.6-10.8) mg/dL Total Bilirubin 0.8 (0.2-1.2) mg/dL AST 18 (5-34) Units/L ALT 24 (0-55) Units/L Alkaline Phosphatase 78 (38-126) Units/L Albumin 2.6 L (3.5-5.0) g/dL All other labs normal. - Imaging CT scan - abdomen: report reviewed CT scan - pelvis: report reviewed Additional studies: Chest X-Ray 08/09/16 02:12 IMPRESSION: 1. New central right lung airspace opacity and less prominent left perihilar airspace opacity superimposed upon diffuse interstitial opacities, most likely alveolar and interstitial edema. Given mild cardiomegaly, congestive heart failure is suspected. Pneumonia could appear similar but is considered less likely given the interval between studies. 2. Suspected trace bilateral pleural effusions. D/ / Virgil Garcias MD / Virgil Garcias MD Interpreting Provider: Virgil Garcias MD Abdomen/Pelvis CT 08/09/16 03:25 IMPRESSION: 1. No findings of pulmonary embolism. 2. Peribronchovascular groundglass and consolidative opacities both lungs spare the periphery, most likely representing alveolar interstitial edema in the setting of congestive heart failure given bilateral pleural effusions and mild cardiomegaly. Pneumonia is considered less likely. 3. New changes of cholecystectomy. Gas and fluid within the gallbladder fossa measures up to 5.3 cm x 4.9 cm x 4.2 cm, potentially representing a developing abscesses despite lack of rim enhancement. 4. Trace free fluid in the abdomen and pelvis, either postoperative or reactive. 5. Mild to moderate anasarca. 6. Mild hepatosplenomegaly. D/ / Virgil Garcias MD / Virgil Garcias MD Interpreting Provider: Virgil Garcias MD Chest CTA 08/09/16 03:25 IMPRESSION: 1. No findings of pulmonary embolism. 2. Peribronchovascular groundglass and consolidative opacities both lungs spare the periphery, most likely representing alveolar interstitial edema in the setting of congestive heart failure given bilateral pleural effusions and mild cardiomegaly. Pneumonia is considered less likely. 3. New changes of cholecystectomy. Gas and fluid within the gallbladder fossa measures up to 5.3 cm x 4.9 cm x 4.2 cm, potentially representing a developing abscesses despite lack of rim enhancement. 4. Trace free fluid in the abdomen and pelvis, either postoperative or reactive. 5. Mild to moderate anasarca. 6. Mild hepatosplenomegaly. D/ / Virgil Garcias MD / Virgil Garcias MD Interpreting Provider: Virgil Garcias MD Bile Acid Absorption NM 08/09/16 11:37 IMPRESSION: Negative for bile leak. D/ / Curt Luis MD / Curt Luis MD Interpreting Provider: Curt Luis MD Consult Discharge Plan - Plan Additional Instructions: #1 may shower, no tub bath for 2 weeks #2 wash incisions with soap and water and pat dry daily #3 no lifting, pushing, pulling more than 15 pounds for the next 2 weeks #4 no driving until off narcotics for 24 hours and able to safely react in the car #5 may climb stairs Referrals: Joanne Paez MD [Primary Care Provider] - 08/17/16 1:45 pm (web request sent on 08/09/16 ) Margoth Merrill CNP [Advanced Practice Nurse] - 08/20/16 8:45 am (surgery follow-up) - Attending Attestation I examined this patient and my medical decision-making was reviewed with the [employer]/PA/Advanced Practice Nurse/Resident Physician. I agree with the documented findings, disposition and treatment plan as described except to the extent set forth below.
[2016-08-10] MEDS: Levofloxacin 750 MG/150 ML 750 MG/150 ML BAG IVPB SCH (11:28)
--- NOTE | 2016-08-10 16:13 | Electrocardiograph Report ---
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
--- NOTE | 2016-08-10 17:13 | Internal Med Progress Note ---
Date of Encounter: 08/10/16 Time of Encounter: 11:40 - Assessment and plan (1) Acute and chronic respiratory failure with hypoxia Current Visit: Yes Status: Acute Assessment and plan: Secondary to HCAP Add Levoflox to current antibiotic regimen Change lasix to po ECHO is however normal Continue O2 Follow cultures, respiratory panel pain control for abdominal pain (2) Acute on chronic diastolic heart failure Current Visit: Yes Status: Acute (3) Healthcare associated bacterial pneumonia Current Visit: Yes Status: Acute (4) Hypokalemia Current Visit: Yes Status: Acute (5) Intra-abdominal abscess Current Visit: Yes Status: Acute (6) Postoperative abdominal pain Current Visit: Yes Status: Acute (7) HTN (hypertension) Current Visit: Yes Status: Chronic Qualifiers: Hypertension type: essential hypertension Qualified Code(s): I10 - Essential (primary) hypertension (8) Diabetes mellitus, type II, insulin dependent Current Visit: Yes Status: Chronic (9) Hyperlipemia Current Visit: Yes Status: Chronic Qualifiers: Hyperlipidemia type: unspecified Qualified Code(s): E78.5 - Hyperlipidemia , unspecified (10) Obesity (BMI 30-39.9) Current Visit: Yes Status: Chronic (11) Paroxysmal atrial fibrillation Current Visit: Yes Status: Chronic - Subjective Interval history: 50 Y/O F with PMH of COPD, Atrial fibrillation not on anticoagulation due to hx of intracranial bleed, s/p cholecystectomy Patient is being managed for acute on chronic hypoxic respiratory failure secondary to HCAP, abdominal pain possibly from post-op site. She is seen at bedside, no new complains, her only complain is of abdominal pain Patient has had several wor ups since admission ECHO done this a.m revealed EF of 55% with N LV function, mildly dilated LV with normal diastolic function. NO valvular abnormalities. Chest CT with perihilar infiltrates, Nuclear Gallbladder scan with no leaks. Chemistry this morning with hypokalemia No leukocytosis, no fever She has been seen by surgery with no plan for any intervention - Constitutional Vitals: Temp Pulse Resp BP Pulse Ox 98.2 F 70 18 106/57 95 08/10/16 11:48 08/10/16 11:48 08/10/16 11:48 08/10/16 11:48 08/10/16 11:48 General appearance: Present: A&O X 3, pleasant, no acute distress, obese - Head Head exam: Present: atraumatic, normocephalic - Eye Eye exam: Present: PERRL, conjuntiva pink, sclera anicteric Pupils: Present: PERRL - Neck Neck exam general surgery: Present: supple, trachea midline. Absent: lymphadenopathy - Respiratory Respiratory exam: Present: rhonchi - Cardiovascular Cardiovascular exam: Present: +S1, +S2. Absent: JVD, +S3 - GI/Abdominal GI/Abdominal exam: Present: tenderness, no peritoneal signs. Absent: guarding - Extremities Exam Extremities exam: Absent: pedal edema - Neurological Exam Neurological exam: Present: alert, oriented X3, no focal deficits. Absent: pronater drift, facial droop, speech deficit - Skin Skin exam: Present: dry Internal Medicine: Result - Labs CBC & Chem 7: 08/10/16 06:16 08/10/16 06:16 Labs: Short CBC 08/10/16 Range/Units 06:16 WBC 7.4 (4.3-11.1) K/mcL Hgb 10.6 L (11.5-15.4) g/dL Hct 32.7 L (35.3-44.9) % Plt Count 229 (140-400) K/mcL Neutrophils # 5.5 (1.6-8.9) K/mcL BMP 08/10/16 06:16 Sodium 138 Potassium 2.6 L Chloride 100 Carbon Dioxide 28 BUN 6 L Creatinine 0.60 Glucose 236 H Calcium 8.4 L Cardiac Enzymes 08/09/16 Range/Units 18:14 Troponin I 0.01 (0-0.03) ng/mL Liver Function 08/10/16 Range/Units 06:16 Total Bilirubin 0.8 (0.2-1.2) mg/dL AST 18 (5-34) Units/L ALT 24 (0-55) Units/L Alkaline Phosphatase 78 (38-126) Units/L Albumin 2.6 L (3.5-5.0) g/dL - ABG Interpretation ABG results: PT/INR, D-dimer PT 12.7 Seconds (9.4-12.1) H 08/10/16 06:16 Consult Discharge Plan - Plan Additional Instructions: #1 may shower, no tub bath for 2 weeks #2 wash incisions with soap and water and pat dry daily #3 no lifting, pushing, pulling more than 15 pounds for the next 2 weeks #4 no driving until off narcotics for 24 hours and able to safely react in the car #5 may climb stairs Referrals: Margoth Merrill CNP [Advanced Practice Nurse] - 08/20/16 8:45 am (surgery follow-up) Joanne Paez MD [Primary Care Provider] - 08/17/16 1:45 pm (web request sent on 08/09/16 )
[2016-08-10 18:14] LABS: BUN/Creatinine Ratio 9 (6-26); Blood Urea Nitrogen 7 mg/dL (7-20); Calcium 8.5 mg/dL (8.6-10.8); Carbon Dioxide 26 mEq/L (19-29); Chloride 98 mEq/L (98-109); Glucose 227 mg/dL (70-99); Osmolality,Calculated 287 (280-300); Potassium 3.3 mEq/L (3.5-4.5); Sodium 136 mEq/L (136-145); eGFR For African Americans > 60 (> 60); eGFR For Non-African Americans > 60 (> 60)
[2016-08-10] MEDS: clonazePAM 0.5 MG TABLET PO SCH (20:09)
[2016-08-11] MEDS: Vancomycin 1,500 MG in D5% in Water 250 ML IVPB SCH (00:07)
[2016-08-11] MEDS: Piperacillin/Tazobactam 3.375 GM in D5% in Water (Mini-Bag+) 100 ML IVPB SCH ×3 (00:08→16:58)
[2016-08-11] MEDS: Magic Mouthwash 10 ML UD Cup PO SCH ×4 (00:09→16:59)
[2016-08-11] MEDS: *HR* HYDROmorphone (PF) 1 MG/ML SYRINGE IVP PRN ×3 (03:51→17:00)
[2016-08-11 06:30] LABS: Basophils % 0.3 %; Eosinophils # 0.3 K/mcL (0.0-0.6); Eosinophils % 3.1 %; Hematocrit 31.3 % (35.3-44.9); Hemoglobin 9.9 g/dL (11.5-15.4); Immature Granulocytes % 0.6 % (0-4); Lymphocytes # 1.1 K/mcL (0.6-4.6); Lymphocytes % 11.7 %; Mean Corpuscular HGB Conc 31.6 g/dL (31.6-35.5); Mean Corpuscular Hemoglobin 23.8 pg (28.0-33.3); Mean Corpuscular Volume 75.2 fL (83.0-100.0); Mean Platelet Volume 9.6 fL (9.4-12.4); Monocytes # 0.5 K/mcL (0.0-1.3); Monocytes % 5.2 %; Neutrophils # 7.2 K/mcL (1.6-8.9); Platelet Count 209 K/mcL (140-400); Red Blood Count 4.16 M/mcL (3.82-4.97); Red Cell Distribution Width 16.4 % (11.5-14.5); Segmented Neutrophils % 79.1 %
[2016-08-11] MEDS: *HR* Enoxaparin 40 MG/0.4 ML SYRINGE SQ SCH (06:34)
[2016-08-11 06:46] LABS: Calcium 8.6 mg/dL (8.6-10.8); Potassium 3.4 mEq/L (3.5-4.5)
[2016-08-11] MEDS: Levofloxacin 750 MG/150 ML 750 MG/150 ML BAG IVPB SCH (08:50)
[2016-08-11] MEDS: Furosemide 20 MG/2 ML VIAL IVP SCH (08:52)
[2016-08-11] MEDS: Pregabalin 50 MG CAPSULE PO SCH ×2 (08:54→20:41)
[2016-08-11] MEDS: Aspirin Enteric Coated 81 MG Tablet PO SCH (08:54)
[2016-08-11] MEDS: Insulin LISPRO 300 UNITS/3 ML VIAL SQ SCH ×7 (09:25→20:42)
--- NOTE | 2016-08-11 09:47 | Internal Med Progress Note ---
Date of Encounter: 08/11/16 Time of Encounter: 11:00 - Assessment and plan (1) ANTOINETTE (acute kidney injury) Current Visit: Yes Status: Acute Assessment and plan: Possibly from medications Vanco and Lasix have been held Encourage liberal fluid intake Monitor chem (2) Acute and chronic respiratory failure with hypoxia Current Visit: Yes Status: Acute Assessment and plan: Secondary to HCAP Hold Vanco due to ANTOINETTE, continue Levoflox and Zosyn (3) Acute on chronic diastolic heart failure Current Visit: Yes Status: Acute Assessment and plan: ECHO was WNL Hold lasix due to ANTOINETTE Monitor closely Continue other meds (4) Healthcare associated bacterial pneumonia Current Visit: Yes Status: Acute (5) Hypokalemia Current Visit: Yes Status: Acute Assessment and plan: Improved (6) Intra-abdominal abscess Current Visit: Yes Status: Ruled-out Assessment and plan: Ruled out (7) Postoperative abdominal pain Current Visit: Yes Status: Acute Assessment and plan: Decrease IV opiates Start percocet (8) HTN (hypertension) Current Visit: Yes Status: Chronic Qualifiers: Hypertension type: essential hypertension Qualified Code(s): I10 - Essential (primary) hypertension (9) Diabetes mellitus, type II, insulin dependent Current Visit: Yes Status: Chronic (10) Hyperlipemia Current Visit: Yes Status: Chronic Qualifiers: Hyperlipidemia type: unspecified Qualified Code(s): E78.5 - Hyperlipidemia , unspecified (11) Obesity (BMI 30-39.9) Current Visit: Yes Status: Chronic (12) Paroxysmal atrial fibrillation Current Visit: Yes Status: Chronic - Subjective Interval history: 50 Y/O F with PMH of COPD, Atrial fibrillation not on anticoagulation due to hx of intracranial bleed, s/p cholecystectomy Patient is being managed for acute on chronic hypoxic respiratory failure secondary to HCAP, abdominal pain possibly from post-op site. She is seen at bedside, no new complains, her only complain is of abdominal pain Her Chest CT with findings suggestive of possible pulmonary edema and suspicion for pneumonia ECHO done 08/10 revealed EF of 55% with N LV function, mildly dilated LV with normal diastolic function. NO valvular abnormalities. Chest CT with perihilar infiltrates, Nuclear Gallbladder scan with no leaks. She was started on empiric HCAP treatment with Levofloxacin, Zosyn and Vanco She was also placed on IV diuretics This morning, she has no new complains Lab review shows ANTOINETTE Vancomycin and Lasix have been held - Constitutional Vitals: Temp Pulse Resp BP Pulse Ox 98.3 F 67 18 112/72 94 L 08/11/16 08:09 08/11/16 08:09 08/11/16 08:09 08/11/16 08:09 08/11/16 08:09 General appearance: Present: A&O X 3, pleasant, no acute distress, obese - Head Head exam: Present: atraumatic, normocephalic - Eye Eye exam: Present: PERRL, conjuntiva pink, sclera anicteric - Neck Neck exam general surgery: Present: supple, trachea midline. Absent: lymphadenopathy - Respiratory Respiratory exam: Present: CTAB, rhonchi. Absent: accessory muscle use, rales, wheezes - Cardiovascular Cardiovascular exam: Present: RRR, +S1, +S2. Absent: diastolic murmur, gallop, rubs, systolic murmur - GI/Abdominal GI/Abdominal exam: Present: normal bowel sounds, soft, no peritoneal signs. Absent: distended, tenderness - Extremities Exam Extremities exam: Present: warm, radial pulses palpable and symetrical. Absent : calf tenderness, cyanotic, pedal edema - Neurological Exam Neurological exam: Present: CN II-XII intact, oriented X3, no focal deficits. Absent: pronater drift, facial droop, speech deficit - Skin Skin exam: Present: dry, intact Internal Medicine: Result - Labs CBC & Chem 7: 08/11/16 06:16 08/11/16 06:16 Labs: Short CBC 08/11/16 Range/Units 06:16 WBC 9.1 (4.3-11.1) K/mcL Hgb 9.9 L (11.5-15.4) g/dL Hct 31.3 L (35.3-44.9) % Plt Count 209 (140-400) K/mcL Neutrophils # 7.2 (1.6-8.9) K/mcL BMP 08/10/16 08/11/16 17:52 06:16 Sodium 136 137 Potassium 3.3 L 3.4 L Chloride 98 97 L Carbon Dioxide 26 28 BUN 7 12 Creatinine 0.74 1.39 H D Glucose 227 H 162 H Calcium 8.5 L 8.6 - ABG Interpretation ABG results: PT/INR, D-dimer PT 12.7 Seconds (9.4-12.1) H 08/10/16 06:16 Consult Discharge Plan - Plan Additional Instructions: #1 may shower, no tub bath for 2 weeks #2 wash incisions with soap and water and pat dry daily #3 no lifting, pushing, pulling more than 15 pounds for the next 2 weeks #4 no driving until off narcotics for 24 hours and able to safely react in the car #5 may climb stairs Referrals: Margoth Merrill CNP [Advanced Practice Nurse] - 08/20/16 8:45 am (surgery follow-up) Joanne Paez MD [Primary Care Provider] - 08/17/16 1:45 pm (web request sent on 08/09/16 )
[2016-08-11] MEDS: Insulin DETEMIR 100 UNIT/ML X5UNITS SQ SCH ×2 (11:06→20:39)
[2016-08-11] MEDS: *HR* OxyCODONE/APAP 5/325 TABLET PO PRN ×2 (13:24→20:40)
[2016-08-11] MEDS: clonazePAM 0.5 MG TABLET PO SCH (20:41)
[2016-08-12] MEDS: Piperacillin/Tazobactam 3.375 GM in D5% in Water (Mini-Bag+) 100 ML IVPB SCH ×2 (01:05→07:52)
[2016-08-12] MEDS: *HR* HYDROmorphone (PF) 1 MG/ML SYRINGE IVP PRN ×3 (01:05→18:37)
[2016-08-12] MEDS: *HR* OxyCODONE/APAP 5/325 TABLET PO PRN ×3 (04:25→21:51)
[2016-08-12] MEDS: *HR* Enoxaparin 40 MG/0.4 ML SYRINGE SQ SCH (06:45)
[2016-08-12] MEDS: Magic Mouthwash 10 ML UD Cup PO SCH ×3 (06:46→16:59)
[2016-08-12 07:03] LABS: Basophils % 0.2 %; Eosinophils # 0.3 K/mcL (0.0-0.6); Eosinophils % 3.2 %; Hematocrit 29.6 % (35.3-44.9); Hemoglobin 9.4 g/dL (11.5-15.4); Immature Granulocytes % 0.5 % (0-4); Lymphocytes % 10.5 %; Mean Corpuscular HGB Conc 31.8 g/dL (31.6-35.5); Mean Corpuscular Hemoglobin 24.2 pg (28.0-33.3); Mean Corpuscular Volume 76.1 fL (83.0-100.0); Mean Platelet Volume 10.5 fL (9.4-12.4); Monocytes # 0.5 K/mcL (0.0-1.3); Monocytes % 5.1 %; Neutrophils # 7.5 K/mcL (1.6-8.9); Platelet Count 233 K/mcL (140-400); Red Blood Count 3.89 M/mcL (3.82-4.97); Red Cell Distribution Width 16.8 % (11.5-14.5); Segmented Neutrophils % 80.5 %
[2016-08-12 07:19] LABS: Calcium 8.5 mg/dL (8.6-10.8); Potassium 4.1 mEq/L (3.5-4.5)
[2016-08-12] MEDS: Pregabalin 50 MG CAPSULE PO SCH ×2 (07:51→21:50)
[2016-08-12] MEDS: Aspirin Enteric Coated 81 MG Tablet PO SCH (07:52)
[2016-08-12] MEDS: Insulin LISPRO 300 UNITS/3 ML VIAL SQ SCH ×7 (07:53→21:51)
[2016-08-12] MEDS: Levofloxacin 750 MG/150 ML 750 MG/150 ML BAG IVPB SCH (07:53)
[2016-08-12] MEDS ORDERED: 0.9 % Sodium Chloride 1,000 ML IVC ONE (08:17)
[2016-08-12] MEDS: Insulin DETEMIR 100 UNIT/ML X5UNITS SQ SCH ×2 (12:29→21:51)
--- NOTE | 2016-08-12 16:17 | Internal Med Progress Note ---
Date of Encounter: 08/12/16 Time of Encounter: 11:30 - Assessment and plan (1) ANTOINETTE (acute kidney injury) Current Visit: Yes Status: Acute Assessment and plan: She was started on empiric HCAP treatment with Levofloxacin, Zosyn and Vanco on 08/11/16 we noted a decline in renal function. Lasix and Vancmycin were promptly stopped Renal USS was ordered today when renal function continued to decline and creatinine continued to trend up. She also received 1L bolus Renal USS today 08/12 shows fatty liver and acute interstitial nephritis vs glomerulonephritis Literature review reveals medications like penicillins and lasix my be culprits , lasix has been held for the past 24hrs. Will also hold Zosyn and Omeprazole Send urine eosinophils. CBC remains WNL, patient has no rash AIN is usually self limiting and renal function will spontaneously improve within 3 days, if not patient may need kidney biopsy and or steroids Will consult nephrology (2) Acute and chronic respiratory failure with hypoxia Current Visit: Yes Status: Acute Assessment and plan: Secondary to HCAP Continue to hold Vanco , Zosyn Continue Levoflox (3) Acute on chronic diastolic heart failure Current Visit: Yes Status: Acute Assessment and plan: ECHO was WNL Hold lasix due to ANTOINETTE Monitor closely Continue other meds (4) Healthcare associated bacterial pneumonia Current Visit: Yes Status: Acute (5) Hypokalemia Current Visit: Yes Status: Acute Assessment and plan: Improved (6) Intra-abdominal abscess Current Visit: Yes Status: Ruled-out Assessment and plan: Ruled out (7) Postoperative abdominal pain Current Visit: Yes Status: Acute Assessment and plan: Decrease IV opiates Start percocet (8) HTN (hypertension) Current Visit: Yes Status: Chronic Qualifiers: Hypertension type: essential hypertension Qualified Code(s): I10 - Essential (primary) hypertension (9) Diabetes mellitus, type II, insulin dependent Current Visit: Yes Status: Chronic (10) Hyperlipemia Current Visit: Yes Status: Chronic Qualifiers: Hyperlipidemia type: unspecified Qualified Code(s): E78.5 - Hyperlipidemia , unspecified (11) Obesity (BMI 30-39.9) Current Visit: Yes Status: Chronic (12) Paroxysmal atrial fibrillation Current Visit: Yes Status: Chronic - Subjective Interval history: 50 Y/O F with PMH of COPD, Atrial fibrillation not on anticoagulation due to hx of intracranial bleed, s/p cholecystectomy Patient is being managed for acute on chronic hypoxic respiratory failure secondary to HCAP, abdominal pain possibly from post-op site. She is seen at bedside, no new complains, her only complain is of abdominal pain Her Chest CT with findings suggestive of possible pulmonary edema and suspicion for pneumonia ECHO done 08/10 revealed EF of 55% with N LV function, mildly dilated LV with normal diastolic function. NO valvular abnormalities. Chest CT with perihilar infiltrates, Nuclear Gallbladder scan with no leaks. She was started on empiric HCAP treatment with Levofloxacin, Zosyn and Vanco on 08/11/16 we noted a decline in renal function. Lasix and Vancmycin were promptly stopped Renal USS was ordered today when renal function continued to decline and creatinine continued to trend up. She also received 1L bolus Renal USS today 08/12 shows fatty liver and acute interstitial nephritis vs glomerulonephritis Literature review reveals medications like penicillins and lasix my be culprits , lasix has been held for the past 24hrs. Will also hold Zosyn and Omeprazole Send urine eosinophils. CBC remains WNL, patient has no rash AIN is usually self limiting and renal function will spontaneously improve within 3 days, if not patient may need kidney biopsy and or steroids Will consult nephrology - Constitutional Vitals: Temp Pulse Resp BP Pulse Ox 97.3 F L 63 18 122/77 97 08/12/16 12:30 08/12/16 12:30 08/12/16 12:30 08/12/16 12:30 08/12/16 12:30 General appearance: Present: A&O X 3, pleasant, no acute distress, obese - Head Head exam: Present: atraumatic, normocephalic - Eye Eye exam: Present: PERRL, conjuntiva pink, sclera anicteric Pupils: Present: PERRL - Neck Neck exam general surgery: Present: supple, trachea midline. Absent: lymphadenopathy - Respiratory Respiratory exam: Present: CTAB. Absent: accessory muscle use, rales, rhonchi, wheezes - Cardiovascular Cardiovascular exam: Present: RRR, +S1, +S2. Absent: diastolic murmur, gallop, rubs, systolic murmur - GI/Abdominal GI/Abdominal exam: Present: normal bowel sounds, soft, no peritoneal signs. Absent: distended, tenderness - Extremities Exam Extremities exam: Present: warm, radial pulses palpable and symetrical. Absent : calf tenderness, cyanotic, pedal edema - Neurological Exam Neurological exam: Present: CN II-XII intact, oriented X3, no focal deficits. Absent: pronater drift, facial droop, speech deficit - Skin Skin exam: Present: dry, intact. Absent: rash Internal Medicine: Result - Labs CBC & Chem 7: 08/12/16 06:12 08/12/16 06:12 Labs: Short CBC 08/12/16 Range/Units 06:12 WBC 9.4 (4.3-11.1) K/mcL Hgb 9.4 L (11.5-15.4) g/dL Hct 29.6 L (35.3-44.9) % Plt Count 233 (140-400) K/mcL Neutrophils # 7.5 (1.6-8.9) K/mcL BMP 08/12/16 06:12 Sodium 140 Potassium 4.1 Chloride 104 Carbon Dioxide 24 BUN 18 Creatinine 2.04 H Glucose 202 H Calcium 8.5 L - ABG Interpretation ABG results: PT/INR, D-dimer PT 12.7 Seconds (9.4-12.1) H 08/10/16 06:16 - Impressions Impressions Retroperitoneum Ultrasound 08/12/16 11:11 IMPRESSION: No hydronephrosis nor shadowing renal pelvic stones. Prominent size of the kidneys with suspected increased overall echogenicity the findings are nonspecific and can be seen with acute interstitial nephritis, acute glomerulonephritis, diabetic nephropathy, and HIV nephropathy. Correlation is recommended. D/ / Paris Mcmullen Cha, MD / Paris Mcmullne Cha, MD Interpreting Provider: Paris Mcmullen Cha, MD Consult Discharge Plan - Plan Additional Instructions: #1 may shower, no tub bath for 2 weeks #2 wash incisions with soap and water and pat dry daily #3 no lifting, pushing, pulling more than 15 pounds for the next 2 weeks #4 no driving until off narcotics for 24 hours and able to safely react in the car #5 may climb stairs Referrals: Margoth Merrill [employer] [Advanced Practice Nurse] - 08/20/16 8:45 am (surgery follow-up) Joanne Paez MD [Primary Care Provider] - 08/17/16 1:45 pm (web request sent on 08/09/16 )
[2016-08-12] MEDS: clonazePAM 0.5 MG TABLET PO SCH (21:51)
[2016-08-13] MEDS: Albuterol 2.5 MG/3 ML NEBULIZER IH PRN ×3 (00:21→18:01)
[2016-08-13] MEDS: *HR* HYDROmorphone (PF) 1 MG/ML SYRINGE IVP PRN (02:40)
[2016-08-13] MEDS: traZODone 50 MG TABLET PO PRN ×2 (02:40→22:59)
[2016-08-13] MEDS: Magic Mouthwash 10 ML UD Cup PO SCH ×3 (06:27→17:34)
[2016-08-13] MEDS: *HR* Enoxaparin 40 MG/0.4 ML SYRINGE SQ SCH (06:27)
[2016-08-13] MEDS: *HR* OxyCODONE/APAP 5/325 TABLET PO PRN ×3 (06:27→22:59)
[2016-08-13] MEDS: Insulin LISPRO 300 UNITS/3 ML VIAL SQ SCH ×7 (08:05→23:12)
[2016-08-13] MEDS: Pregabalin 50 MG CAPSULE PO SCH ×2 (08:08→22:59)
[2016-08-13] MEDS: levoFLOXacin 500 MG TABLET PO SCH (08:09)
[2016-08-13] MEDS: Aspirin Enteric Coated 81 MG Tablet PO SCH (08:09)
[2016-08-13] MEDS: Insulin DETEMIR 100 UNIT/ML X5UNITS SQ SCH ×2 (08:10→23:11)
[2016-08-13] MEDS ORDERED: Levofloxacin 750 MG/150 ML 750 MG/150 ML BAG IVPB SCH (09:00)
[2016-08-13 09:06] LABS: Calcium 9.1 mg/dL (8.6-10.8); Potassium 4.5 mEq/L (3.5-4.5)
[2016-08-13 09:28] LABS: Basophils % 0.4 %; Eosinophils # 0.3 K/mcL (0.0-0.6); Eosinophils % 2.7 %; Hematocrit 32.4 % (35.3-44.9); Immature Granulocytes % 0.4 % (0-4); Immature Platelets 3.3 % (1.1-6.1); Lymphocytes # 0.9 K/mcL (0.6-4.6); Lymphocytes % 8.2 %; Mean Corpuscular HGB Conc 30.9 g/dL (31.6-35.5); Mean Corpuscular Volume 77.7 fL (83.0-100.0); Mean Platelet Volume 10.3 fL (9.4-12.4); Monocytes # 0.4 K/mcL (0.0-1.3); Monocytes % 3.5 %; Neutrophils # 9.6 K/mcL (1.6-8.9); Platelet Count 257 K/mcL (140-400); Red Blood Count 4.17 M/mcL (3.82-4.97); Red Cell Distribution Width 16.6 % (11.5-14.5); Segmented Neutrophils % 84.8 %
[2016-08-13] MEDS ORDERED: *HR* OxyCODONE/APAP 5/325 TABLET PO ONE (10:41)
[2016-08-13] MEDS ORDERED: 0.9 % Sodium Chloride 1,000 ML IVC ONE (10:46)
--- NOTE | 2016-08-13 11:32 | Electrocardiograph Report ---
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
[2016-08-13] MEDS ORDERED: *HR* OxyCODONE/APAP 5/325 TABLET PO PRN (12:00)
[2016-08-13] MEDS ORDERED: *HR* OxyCODONE/APAP 10/325 TABLET PO PRN (12:00)
--- NOTE | 2016-08-13 12:22 | Nephrology Consult Note ---
Date of Encounter: 08/13/16 Time of Encounter: 12:15 Assessment and Plan (1) ANTOINETTE (acute kidney injury) Current Visit: Yes Status: Acute Elevated SCr in the setting of iv contrast exposure and rise of SCr within 48 hours very suspicious for contrast nephropathy. also in the setting of diuretic use rule out pre-renal azotemia and also with PNA with sepsis Agree with holding laais, vanco, zosyn and omeprazole all potential nephrotoxins US of kidney results also noted will check urine sodium to calculate FENa Will also check CPK and uric acid levels Urine eosinophil noted negative SCr appears to be plateauing, will monitor and give supportive care. No acute indication for BILL PEDDLER History of Present Illness - Reason for Consult Consult date: 08/13/16 Acute Kidney Injury Requesting physician: Domingo Stallworth - History of Present Illness 50 y o female with PMH of COPD, CHF and DM readmitted after discharge s/p lap james done 08/05 returning within 12 hours with SOB and abdominal pain. She underwent CTA chest to rule out PE 08/09/16 and is being treated for CHF and PNA with lasix, vnco and zosyn when her SCr began to rise from baseline 0.74, GF > 60 to 1.39, GFR 40 as of 08/11 to 2.04, GFr 26 and now 2.09, GFR 25. Renal consulted for management. She denies any prior history of renal disease. She took NSAIDs on outpatientt for aches and pains but not during this hospital stay Past Med Surg Social Fam HX - Past Medical History Medical history: atrial fibrillation, COPD, CVA, diabetes, hypertension, myocardial infarction Psychiatric history: anxiety, depression - Past Surgical History Surgical History: - Social History Smoking Status: Never smoker Smokeless Tobacco Status: No Alcohol use: none Drug use: none - Family History Mother History Unknown: Yes Living Status: Hx Family Cardiac Disorders: Yes Hx Family Respiratory Disorders: Yes (copd) Hx Family Cancer: Yes (lung cancer) Hx Family Endocrine Disorder: Yes (DM type II) Father History Unknown: Yes Living Status: Hx Family Cardiac Disorders: Yes Hx Family Cancer: Yes (stomach cancer) Hx Family Endocrine Disorder: Yes (DM) Medications and Allergies Albuterol Sulfate [Proair Respiclick] 2 puff IH Q4H PRN 10/26/15 [History] Aspirin [Adult Low Dose Aspirin EC] 81 mg PO DAILY 10/26/15 [History] ClonazePAM [Klonopin] 0.5 mg PO HS 10/26/15 [History] Etonogestrel [Nexplanon] 68 mg SQ AD 10/26/15 [History] Ferrous Sulfate [Iron] 325 mg PO DAILY 10/26/15 [History] Insulin ASPART [Novolog Flexpen] 2 - 10 unit SQ TID 10/26/15 [History] Insulin Glargine,Hum.rec.anlog [Lantus Solostar] 50 unit SQ BID 10/26/15 [ History] Lisinopril [Zestril] 5 mg PO DAILY 10/26/15 [History] Metformin [Glucophage] 1,000 mg PO BIDWM 10/26/15 [History] Metoprolol [Lopressor] 12.5 mg PO BID 10/26/15 [History] Omeprazole [PriLOSEC] 40 mg PO DAILY 10/26/15 [History] Pregabalin [Lyrica] 100 mg PO BID 10/26/15 [History] Sertraline [Zoloft] 150 mg PO DAILY 10/26/15 [History] Trazodone HCl 50 - 100 mg PO HS PRN 10/26/15 [History] Atorvastatin Calcium [Lipitor] 20 mg PO DAILY #0 04/17/16 [Rx] Ibuprofen [Motrin] 600 mg PO Q6-8H PRN #30 tab 05/21/16 [Rx] Docusate Sodium [Colace] 100 mg PO DAILY PRN 30 Days 08/06/16 [Rx] OxyCODONE/APAP 5/325 [Percocet 5/325 MG] 1 each PO Q6HR PRN #30 tablet 08/06/16 [Rx] Allergies No Known Allergies Allergy (Verified 08/09/16 09:38) Review of Systems All Systems: reviewed and no additional remarkable complaints except as stated ( as noted in HPI) Exam - Vital Signs Vital signs: Initial Vital Signs Temp Pulse Resp BP Pulse Ox 99.6 F 88 20 171/83 82 L 08/09/16 01:38 08/09/16 01:38 08/09/16 01:38 08/09/16 01:38 08/09/16 01:38 Vital Signs - Last 8 Hours Temp Pulse Resp BP Pulse Ox 08/13/16 11:39 17 98 08/13/16 11:33 97.9 F 72 17 140/64 98 08/13/16 09:04 98.4 F 81 17 125/79 94 L 08/13/16 08:21 96 08/13/16 04:26 98.1 F 73 18 116/75 96 Intake and Output 08/12/16 08/13/16 08/13/16 23:59 07:59 15:59 Intake Total 0 / 0 460 / 460 480 / 480 Balance 0 / 0 460 / 460 480 / 480 Intake: Oral 0 / 0 460 / 460 480 / 480 Other: Meal Breakfast Percent of Meal Consumed 45% # Voids 2 Weight 98.004 kg Blood Glucose* 219 108 95 Patient Weight 08/13/16 23:59 Weight 98.004 kg - General Appearance General appearance: well-developed, well-nourished EENT: ATNC, mucous membranes moist Neck: no JVD, supple Additional Comments: good areation ant bilat Cardiology: no edema, normal S1, normal S2 Gastrointestinal: tenderness (mild, diffuse), distended (mildly) Integumentary: warm and dry Neurologic: no focal deficit Musculoskeletal: no deformities Psychiatric: mood/affect appropriate Results - Lab Results 08/15/16 10:14 08/15/16 10:14 Most recent lab results Calcium 9.1 mg/dL (8.6-10.8) 08/13/16 08:47 Magnesium 1.6 mg/dL (1.6-2.6) 08/10/16 06:16 Consult Discharge Plan - Plan Additional Instructions: #1 may shower, no tub bath for 2 weeks #2 wash incisions with soap and water and pat dry daily #3 no lifting, pushing, pulling more than 15 pounds for the next 2 weeks #4 no driving until off narcotics for 24 hours and able to safely react in the car #5 may climb stairs Referrals: Margoth Merrill CNP [Advanced Practice Nurse] - 08/20/16 8:45 am (surgery follow-up) Joanne Paez MD [Primary Care Provider] - 08/17/16 1:45 pm (web request sent on 08/09/16 )
[2016-08-13 12:44] LABS: Uric Acid 4.4 mg/dL (2.6-6.0)
[2016-08-13] MEDS: *HR* OxyCODONE/APAP 10/325 TABLET PO PRN ×2 (12:50→20:08)
[2016-08-13] MEDS: clonazePAM 0.5 MG TABLET PO SCH (20:09)
[2016-08-14] MEDS: Albuterol 2.5 MG/3 ML NEBULIZER IH PRN ×2 (00:51→05:20)
[2016-08-14] MEDS: *HR* OxyCODONE/APAP 10/325 TABLET PO PRN ×2 (04:14→19:29)
[2016-08-14] MEDS: Ipratropium/Albuterol Neb 3 ML IH SCH ×4 (05:35→21:45)
[2016-08-14 06:19] LABS: Basophils % 0.1 %; Eosinophils # 0.1 K/mcL (0.0-0.6); Eosinophils % 1.1 %; Hematocrit 28.1 % (35.3-44.9); Hemoglobin 8.8 g/dL (11.5-15.4); Immature Granulocytes % 0.3 % (0-4); Lymphocytes # 0.8 K/mcL (0.6-4.6); Lymphocytes % 7.8 %; Mean Corpuscular HGB Conc 31.3 g/dL (31.6-35.5); Mean Corpuscular Volume 76.6 fL (83.0-100.0); Mean Platelet Volume 10.3 fL (9.4-12.4); Monocytes # 0.4 K/mcL (0.0-1.3); Monocytes % 4.2 %; Neutrophils # 8.6 K/mcL (1.6-8.9); Platelet Count 217 K/mcL (140-400); Red Blood Count 3.67 M/mcL (3.82-4.97); Red Cell Distribution Width 16.3 % (11.5-14.5); Segmented Neutrophils % 86.5 %
[2016-08-14 06:32] LABS: Calcium 8.9 mg/dL (8.6-10.8); Potassium 4.5 mEq/L (3.5-4.5)
[2016-08-14] MEDS: *HR* Enoxaparin 40 MG/0.4 ML SYRINGE SQ SCH (06:40)
[2016-08-14] MEDS: Magic Mouthwash 10 ML UD Cup PO SCH ×3 (06:40→16:50)
[2016-08-14] MEDS: Insulin LISPRO 300 UNITS/3 ML VIAL SQ SCH ×7 (08:10→20:58)
[2016-08-14] MEDS: Insulin DETEMIR 100 UNIT/ML X5UNITS SQ SCH ×2 (08:10→21:42)
[2016-08-14] MEDS: Aspirin Enteric Coated 81 MG Tablet PO SCH (08:10)
[2016-08-14] MEDS: Pregabalin 50 MG CAPSULE PO SCH ×2 (08:10→20:55)
--- NOTE | 2016-08-14 10:08 | Nephrology Progress Note ---
<Ely Johnson - Last Filed: 08/14/16 14:54> Date of Encounter: 08/14/16 Time of Encounter: 10:00 - Assessment and Plan (1) ANTOINETTE (acute kidney injury) Current Visit: Yes Status: Acute Elevated serum creatinine in the setting of IV contrast exposure, as well as diuretic and vancomycin use. Serum creatinine 1.99 today from 2.09 yesterday. FeNa 2.8% indicating intrinsic renal pathology. CPK and uric acid within normal limits. No acute need for renal replacement therapy at this time. (2) Acute and chronic respiratory failure with hypoxia Current Visit: Yes Status: Acute (3) Healthcare associated bacterial pneumonia Current Visit: Yes Status: Acute Subjective Interval history: Patient seen and examined at the bedside. States she is feeling a bit better than yesterday. Continues to require oxygen therapy via nasal cannula. Serum creatinine plateaued today. Objective - Vital Signs Vital signs: Vital Signs Temp Pulse Resp BP Pulse Ox 08/14/16 07:14 99.2 F 90 21 130/79 91 L 08/14/16 05:20 24 94 L 08/14/16 04:34 98.6 F 93 18 136/82 76 L 08/14/16 01:05 98.9 F 81 19 119/69 82 L 08/14/16 00:51 24 80 L 08/13/16 21:27 98.9 F 105 18 138/86 91 L 08/13/16 18:02 19 98 08/13/16 15:41 98.3 F 81 19 143/81 08/13/16 11:39 17 98 08/13/16 11:33 97.9 F 72 17 140/64 98 Intake and Output 08/13/16 08/14/16 08/14/16 23:59 07:59 15:59 Other: Weight 98.1 kg Blood Glucose* 256 190 Patient Weight 08/14/16 23:59 Weight 98.1 kg - General Appearance Exam: General: Patient is alert and in no acute distress HEENT: Normocephalic atraumatic, pupils are equal round and reactive to light and accommodation, tympanic membrane is intact, nares is patent, mucous membranes moist, throat is not injected, no JVD, trachea is midline Cardiovascular: Regular rate and rhythm without murmur Respiratory: Trace rales noted throughout Abdomen: Soft, nontender, nondistended, positive bowel sounds in all 4 quadrants Extremities: Warm, dry, no edema Neuro: A&Ox3, speech is appropriate, cranial nerves II through XII are normal as tested - Lab 08/14/16 06:07 08/14/16 06:07 Most recent lab results Calcium 8.9 mg/dL (8.6-10.8) 08/14/16 06:07 Magnesium 1.6 mg/dL (1.6-2.6) 08/10/16 06:16 Urine Creatinine 24 mg/dL 08/13/16 14:47 Urine Sodium 46.0 mEq/L 08/13/16 14:47 Consult Discharge Plan - Plan Additional Instructions: #1 may shower, no tub bath for 2 weeks #2 wash incisions with soap and water and pat dry daily #3 no lifting, pushing, pulling more than 15 pounds for the next 2 weeks #4 no driving until off narcotics for 24 hours and able to safely react in the car #5 may climb stairs Referrals: Margoth Merrill CNP [Advanced Practice Nurse] - 08/20/16 8:45 am (surgery follow-up) Joanne Paez MD [Primary Care Provider] - 08/17/16 1:45 pm (web request sent on 08/09/16 ) <Harsh Orta - Last Filed: 08/15/16 11:45> Date of Encounter: 08/14/16 - Assessment and Plan (1) ANTOINETTE (acute kidney injury) Current Visit: Yes Status: Acute Objective - Vital Signs Vital signs: Vital Signs Temp Pulse Resp BP Pulse Ox 08/15/16 11:24 16 93 L 08/15/16 11:23 99.5 F 72 16 105/53 93 L 08/15/16 11:00 68 93 L 08/15/16 09:08 81 22 135/94 94 L 08/15/16 09:00 78 08/15/16 05:11 16 96 08/15/16 04:54 83 08/15/16 04:35 98.1 F 93 25 141/93 88 L 08/15/16 00:45 90 08/15/16 00:23 99.1 F 89 29 139/80 84 L 08/14/16 21:45 18 93 L 08/14/16 19:30 96 95 08/14/16 19:00 99.5 F 91 32 138/80 96 08/14/16 16:20 24 94 L 08/14/16 15:37 99.0 F 82 19 138/74 100 Intake and Output 08/14/16 08/15/16 08/15/16 23:59 07:59 15:59 Intake Total 500 / 500 800 / 800 Output Total 3350 / 3350 1250 / 1250 1000 / 1000 Balance -2850 / -2850 -450 / -450 -1000 / -1000 Intake: IV Fluids 100 / 100 Maxipime 1,000 MG In 100 / 100 Dextrose 5% (Minibag+) 100 ML 100 ML @ 200 mls/ hr IVPB Q12HR [facility] Rx#: [id number] Oral 400 / 400 800 / 800 Output: Urine 3350 / 3350 950 / 950 1000 / 1000 Catheter 300 / 300 Other: Weight 97 kg 97.5 kg Blood Glucose* 135 135 199 Patient Weight 08/15/16 23:59 Weight 97.5 kg - Lab 08/15/16 10:14 08/15/16 10:14 Most recent lab results ABG pH 7.48 pH Units (7.32-7.45) H 08/14/16 16:30 ABG pCO2 37 mmHg (35-45) 08/14/16 16:30 ABG pO2 217 mmHg (85-104) H 08/14/16 16:30 ABG HCO3 27.6 mEQ/L (21-27) H 08/14/16 16:30 ABG O2 Saturation 100 % (95-98) H 08/14/16 16:30 Calcium 9.7 mg/dL (8.6-10.8) 08/15/16 10:14 Magnesium 1.6 mg/dL (1.6-2.6) 08/10/16 06:16 Urine Creatinine 24 mg/dL 08/13/16 14:47 Urine Sodium 46.0 mEq/L 08/13/16 14:47 - Attending Attestation I examined this patient and my medical decision-making was reviewed with the FAILURE ANALYSIS TECHNICIAN/PA/Advanced Practice Nurse/Resident Physician. I agree with the documented findings, disposition and treatment plan as described except to the extent set forth below. SCr improving slowly, continue supportive care and avoid nephrotoxins if possible
[2016-08-14] MEDS: *HR* OxyCODONE/APAP 5/325 TABLET PO PRN (10:33)
--- NOTE | 2016-08-14 11:05 | Internal Med Progress Note ---
Date of Encounter: 08/14/16 Time of Encounter: 10:58 - Assessment and plan (1) Healthcare associated bacterial pneumonia Current Visit: Yes Status: Acute Assessment and plan: Healthcare associated pneumonia present upon admission Continue Levaquin alone, day 5 Vancomycin and Zosyn were discontinued due to acute renal failure CT of the chest showed no pulmonary emboli and showed peribronchial vascular groundglass and consolidative opacities in both lungs, bilateral pleural effusions . The report read new changes of cholecystectomy with gas and fluid within the gallbladder fossa representing possible developing abscess (unlikely) with trace free fluid in the abdomen and pelvis. Consider repeating CT scan of the abdomen and consult surgery if worse (2) ANTOINETTE (acute kidney injury) Current Visit: Yes Status: Acute Assessment and plan: Likely related to infection in combination with HCAP treatment with Levofloxacin , Zosyn and Vanco on 08/11/16 we noted a decline in renal function. Lasix and Vancmycin were promptly stopped Gianna's is still being held Renal USS today 08/12 shows fatty liver and acute interstitial nephritis vs glomerulonephritis Will also hold Omeprazole urine eosinophils not found. nephrology was consulted (3) Acute on chronic diastolic heart failure Current Visit: Yes Status: Acute Assessment and plan: ECHO was WNL Hold lasix due to ANTOINETTE Monitor closely Continue other meds (4) Diabetes mellitus, type II, insulin dependent Current Visit: Yes Status: Chronic (5) HTN (hypertension) Current Visit: Yes Status: Chronic Qualifiers: Hypertension type: essential hypertension Qualified Code(s): I10 - Essential (primary) hypertension (6) Paroxysmal atrial fibrillation Current Visit: Yes Status: Chronic Assessment and plan: Continue metoprolol and aspirin Was noncompliant with Xarelto - Time Spent With Patient Greater than 35 minutes - Subjective Interval history: Still feeling very weak, has a dry cough, no fevers, no abdominal pain, diarrhea or dysuria. No chest pain, still feeling short of breath - Constitutional Vitals: Temp Pulse Resp BP Pulse Ox 99.2 F 90 21 130/79 91 L 08/14/16 07:14 08/14/16 07:14 08/14/16 07:14 08/14/16 07:14 08/14/16 07:14 General appearance: Present: A&O X 3, pleasant, no acute distress, obese - Head Head exam: Present: atraumatic, normocephalic - Eye Eye exam: Present: PERRL, conjuntiva pink, sclera anicteric Pupils: Present: PERRL - Neck Neck exam general surgery: Present: supple, trachea midline. Absent: lymphadenopathy - Respiratory Respiratory exam: Present: CTAB, rales (Diffuse crackles). Absent: accessory muscle use, rhonchi, wheezes - Cardiovascular Cardiovascular exam: Present: RRR, +S1, +S2. Absent: diastolic murmur, gallop, rubs, systolic murmur - GI/Abdominal GI/Abdominal exam: Present: normal bowel sounds, soft, no peritoneal signs. Absent: distended, tenderness - Extremities Exam Extremities exam: Present: warm, radial pulses palpable and symetrical. Absent : calf tenderness, cyanotic, pedal edema - Neurological Exam Neurological exam: Present: CN II-XII intact, oriented X3, no focal deficits. Absent: pronater drift, facial droop, speech deficit - Skin Skin exam: Present: dry, intact Internal Medicine: Result - Labs CBC & Chem 7: 08/14/16 06:07 08/14/16 06:07 Labs: Short CBC 08/14/16 Range/Units 06:07 WBC 10.0 (4.3-11.1) K/mcL Hgb 8.8 L (11.5-15.4) g/dL Hct 28.1 L (35.3-44.9) % Plt Count 217 (140-400) K/mcL Neutrophils # 8.6 (1.6-8.9) K/mcL BMP 08/13/16 08/14/16 08:47 06:07 Sodium 141 138 Potassium 4.5 4.5 Chloride 106 104 Carbon Dioxide 22 21 BUN 18 17 Creatinine 2.09 H 1.99 H Glucose 117 H 175 H Calcium 9.1 8.9 - ABG Interpretation ABG results: PT/INR, D-dimer PT 12.7 Seconds (9.4-12.1) H 08/10/16 06:16 Consult Discharge Plan - Plan Additional Instructions: #1 may shower, no tub bath for 2 weeks #2 wash incisions with soap and water and pat dry daily #3 no lifting, pushing, pulling more than 15 pounds for the next 2 weeks #4 no driving until off narcotics for 24 hours and able to safely react in the car #5 may climb stairs Referrals: [place],Margoth A, PROFESSOR [employer] [Advanced Practice Nurse] - 08/20/16 8:45 am (surgery follow-up) Joanne Paez MD [Primary Care Provider] - 08/17/16 1:45 pm (web request sent on 08/09/16 )
[2016-08-14 16:39] LABS: ABG Base Excess 3.9 mEq/L (-2.0 to 3.0); ABG HCO3 27.6 mEQ/L (21-27); ABG Oxygen Saturation 100 % (95-98); ABG PCO2 37 mmHg (35-45); ABG PH 7.48 pH Units (7.32-7.45); ABG PO2 217 mmHg (85-104); ABG TCO2 28.7 mEq/L (20-26); Blood Gas FiO2 100 %
[2016-08-14] MEDS: Cefepime HCl 1,000 MG in D5% in Water (Mini-Bag+) 100 ML IVPB SCH (16:51)
[2016-08-14] MEDS ORDERED: Furosemide 40 MG/4 ML VIAL IV SCH (17:15)
[2016-08-14] MEDS: Furosemide 40 MG TABLET PO SCH (18:38)
[2016-08-14] MEDS: clonazePAM 0.5 MG TABLET PO SCH (20:55)
[2016-08-15] MEDS: *HR* OxyCODONE/APAP 10/325 TABLET PO PRN ×3 (02:56→23:05)
[2016-08-15] MEDS: Ipratropium/Albuterol Neb 3 ML IH SCH ×4 (05:10→23:29)
[2016-08-15] MEDS: *HR* Enoxaparin 40 MG/0.4 ML SYRINGE SQ SCH (06:07)
[2016-08-15] MEDS: Cefepime HCl 1,000 MG in D5% in Water (Mini-Bag+) 100 ML IVPB SCH (07:02)
[2016-08-15] MEDS: Piperacillin/Tazobactam 3.375 GM in D5% in Water (Mini-Bag+) 100 ML IVPB SCH (07:03)
[2016-08-15] MEDS: Insulin LISPRO 300 UNITS/3 ML VIAL SQ SCH ×7 (08:06→20:28)
[2016-08-15] MEDS: levoFLOXacin 500 MG TABLET PO SCH (08:46)
[2016-08-15] MEDS: Furosemide 40 MG TABLET PO SCH (08:47)
[2016-08-15] MEDS: Pregabalin 50 MG CAPSULE PO SCH ×2 (08:47→19:36)
[2016-08-15] MEDS: Magic Mouthwash 10 ML UD Cup PO SCH ×3 (08:47→15:56)
[2016-08-15] MEDS: Aspirin Enteric Coated 81 MG Tablet PO SCH (08:47)
[2016-08-15] MEDS: Insulin DETEMIR 100 UNIT/ML X5UNITS SQ SCH ×2 (09:22→20:28)
--- NOTE | 2016-08-15 10:07 | Nephrology Progress Note ---
<ElizabethMoodyEly A - Last Filed: 08/15/16 15:30> Date of Encounter: 08/15/16 Time of Encounter: 10:00 - Assessment and Plan (1) ANTOINETTE (acute kidney injury) Current Visit: Yes Status: Acute Elevated serum creatinine in the setting of IV contrast exposure, as well as diuretic and vancomycin use. Serum creatinine 2.18 today. Dose of PO lasix given this AM. Will monitor volume status/SCr and dose lasix as needed daily. FeNa 2.8% indicating intrinsic renal pathology. CPK and uric acid within normal limits. No acute need for renal replacement therapy at this time. (2) Acute and chronic respiratory failure with hypoxia Current Visit: Yes Status: Acute (3) Healthcare associated bacterial pneumonia Current Visit: Yes Status: Acute (4) Acute on chronic diastolic heart failure Current Visit: Yes Status: Acute Subjective Interval history: Patient seen and examined at the bedside. States she is feeling a bit better than yesterday. Continues to require oxygen therapy via nasal cannula. Slight increase in serum creatinine today after dose of Lasix. Advised fluid restriction as patient is making great urine output. Objective - Vital Signs Vital signs: Vital Signs Temp Pulse Resp BP Pulse Ox 08/15/16 09:08 81 22 135/94 94 L 08/15/16 09:00 78 08/15/16 05:11 16 96 08/15/16 04:54 83 08/15/16 04:35 98.1 F 93 25 141/93 88 L 08/15/16 00:45 90 08/15/16 00:23 99.1 F 89 29 139/80 84 L 08/14/16 21:45 18 93 L 08/14/16 19:30 96 95 08/14/16 19:00 99.5 F 91 32 138/80 96 08/14/16 16:20 24 94 L 08/14/16 15:37 99.0 F 82 19 138/74 100 08/14/16 11:25 99.1 F 93 19 134/82 90 L 08/14/16 11:15 24 88 L Intake and Output 08/14/16 08/15/16 08/15/16 23:59 07:59 15:59 Intake Total 500 / 500 800 / 800 Output Total 3350 / 3350 1250 / 1250 Balance -2850 / -2850 -450 / -450 Intake: IV Fluids 100 / 100 Maxipime 1,000 MG In 100 / 100 Dextrose 5% (Minibag+) 100 ML 100 ML @ 200 mls/ hr IVPB Q12HR [facility] Rx#: [id number] Oral 400 / 400 800 / 800 Output: Urine 3350 / 3350 950 / 950 Catheter 300 / 300 Other: Weight 97 kg 97.5 kg Blood Glucose* 135 135 Patient Weight 08/15/16 23:59 Weight 97.5 kg - General Appearance Exam: General: Patient is alert and in no acute distress HEENT: Normocephalic atraumatic, pupils are equal round and reactive to light and accommodation, tympanic membrane is intact, nares is patent, mucous membranes moist, throat is not injected, no JVD, trachea is midline Cardiovascular: Regular rate and rhythm without murmur Respiratory: Trace Rales noted throughout Abdomen: Soft, nontender, nondistended, positive bowel sounds in all 4 quadrants Extremities: Warm, dry, trace lower extremity edema noted Neuro: A&Ox3, speech is appropriate, cranial nerves II through XII are normal as tested - Lab 08/15/16 10:14 08/15/16 10:14 Most recent lab results ABG pH 7.48 pH Units (7.32-7.45) H 08/14/16 16:30 ABG pCO2 37 mmHg (35-45) 08/14/16 16:30 ABG pO2 217 mmHg (85-104) H 08/14/16 16:30 ABG HCO3 27.6 mEQ/L (21-27) H 08/14/16 16:30 ABG O2 Saturation 100 % (95-98) H 08/14/16 16:30 Calcium 8.9 mg/dL (8.6-10.8) 08/14/16 06:07 Magnesium 1.6 mg/dL (1.6-2.6) 08/10/16 06:16 Urine Creatinine 24 mg/dL 08/13/16 14:47 Urine Sodium 46.0 mEq/L 08/13/16 14:47 Consult Discharge Plan - Plan Additional Instructions: #1 may shower, no tub bath for 2 weeks #2 wash incisions with soap and water and pat dry daily #3 no lifting, pushing, pulling more than 15 pounds for the next 2 weeks #4 no driving until off narcotics for 24 hours and able to safely react in the car #5 may climb stairs Referrals: Margoth Merrill CNP [Advanced Practice Nurse] - 08/20/16 8:45 am (surgery follow-up) Joanne Paez MD [Primary Care Provider] - 08/17/16 1:45 pm (web request sent on 08/09/16 ) <Harsh Orta Sandhya - Last Filed: 08/16/16 23:51> Date of Encounter: 08/15/16 - Assessment and Plan (1) ANTOINETTE (acute kidney injury) Current Visit: Yes Status: Acute Objective - Vital Signs Vital signs: Vital Signs Temp Pulse Resp BP Pulse Ox 08/16/16 21:48 19 94 L 08/16/16 21:00 98.2 F 75 20 107/50 94 L 08/16/16 20:10 77 08/16/16 16:26 18 89 L 08/16/16 16:06 98.2 F 66 18 97/52 94 L 08/16/16 12:26 73 08/16/16 11:29 97.8 F 69 20 105/66 96 08/16/16 11:21 14 98 08/16/16 09:05 80 08/16/16 07:32 97.6 F 80 20 113/63 95 08/16/16 05:09 60 08/16/16 04:24 18 95 08/16/16 03:57 97.5 F L 75 22 108/43 94 L 08/16/16 00:39 98.4 F 75 22 95/53 96 08/16/16 00:00 78 94 L Intake and Output 08/16/16 08/16/16 08/16/16 07:59 15:59 23:59 Intake Total 540 / 540 340 / 340 770 / 770 Output Total 600 / 600 650 / 650 Balance -60 / -60 340 / 340 120 / 120 Intake: IV Fluids 100 / 100 100 / 100 Flagyl 500 MG/100 ML 500 100 / 100 100 / 100 mg In 100 ml @ 100 mls/hr IVPB Q8HR [facility] Rx#: [id number] Oral 440 / 440 240 / 240 770 / 770 Output: Urine 600 / 600 650 / 650 Other: Meal Breakfast Percent of Meal Consumed 100% Stool Size Moderate Stool Consistency soft Stool Color Brown Weight 93.8 kg Blood Glucose* 130 113 233 Patient Weight 08/16/16 23:59 Weight 93.8 kg - Lab 08/16/16 Unknown 08/16/16 Unknown Most recent lab results ABG pH 7.48 pH Units (7.32-7.45) H 08/14/16 16:30 ABG pCO2 37 mmHg (35-45) 08/14/16 16:30 ABG pO2 217 mmHg (85-104) H 08/14/16 16:30 ABG HCO3 27.6 mEQ/L (21-27) H 08/14/16 16:30 ABG O2 Saturation 100 % (95-98) H 08/14/16 16:30 Calcium 9.5 mg/dL (8.6-10.8) 08/16/16 Unknown Magnesium 1.6 mg/dL (1.6-2.6) 08/10/16 06:16 Urine Creatinine 24 mg/dL 08/13/16 14:47 Urine Sodium 46.0 mEq/L 08/13/16 14:47 - Attending Attestation I examined this patient and my medical decision-making was reviewed with the FACTORY MAINTENANCE MANAGER/PA/Advanced Practice Nurse/Resident Physician. I agree with the documented findings, disposition and treatment plan as described except to the extent set forth below.
[2016-08-15 10:46] LABS: Basophils % 0.3 %; Eosinophils # 0.2 K/mcL (0.0-0.6); Eosinophils % 1.8 %; Hematocrit 29.2 % (35.3-44.9); Hemoglobin 9.1 g/dL (11.5-15.4); Immature Granulocytes % 0.5 % (0-4); Lymphocytes # 0.8 K/mcL (0.6-4.6); Lymphocytes % 6.9 %; Mean Corpuscular HGB Conc 31.2 g/dL (31.6-35.5); Mean Corpuscular Hemoglobin 23.9 pg (28.0-33.3); Mean Corpuscular Volume 76.6 fL (83.0-100.0); Monocytes # 0.4 K/mcL (0.0-1.3); Monocytes % 3.7 %; Neutrophils # 9.5 K/mcL (1.6-8.9); Platelet Count 269 K/mcL (140-400); Red Blood Count 3.81 M/mcL (3.82-4.97); Red Cell Distribution Width 16.1 % (11.5-14.5); Segmented Neutrophils % 86.8 %
[2016-08-15 11:03] LABS: Albumin 2.4 g/dL (3.5-5.0); Albumin/Globulin Ratio 0.6 (1.1-2.2); Bilirubin,Total 0.7 mg/dL (0.2-1.2); Calcium 9.7 mg/dL (8.6-10.8); Globulin 4.1 g/dL (2.4-3.5); Potassium 4.4 mEq/L (3.5-4.5); Total Protein 6.5 g/dL (6.0-8.3)
[2016-08-15] MEDS: *HR* OxyCODONE/APAP 5/325 TABLET PO PRN ×2 (13:19→19:37)
--- NOTE | 2016-08-15 16:28 | Internal Med Progress Note ---
Date of Encounter: 08/15/16 Time of Encounter: 16:15 - Assessment and plan (1) Healthcare associated bacterial pneumonia Current Visit: Yes Status: Acute Assessment and plan: Acute hypoxic respiratory failure secondary to Healthcare associated pneumonia present upon admission, consider possible intraabdominal collection (increased epigastric tenderness) Continue Levaquin day 6, cefepime day 2, start flagyl IV Vancomycin and Zosyn were discontinued due to acute renal failure Repeat CT of the abdomen , ordered lipase CT of the chest and abdomen on 08/09/16 showed no pulmonary emboli and showed peribronchial vascular groundglass and consolidative opacities in both lungs, bilateral pleural effusions . The report read new changes of cholecystectomy with gas and fluid within the gallbladder fossa representing possible developing abscess (unlikely) with trace free fluid in the abdomen and pelvis. Consider consulting surgery if worse (2) ANTOINETTE (acute kidney injury) Current Visit: Yes Status: Acute Assessment and plan: Likely related to infection in combination with HCAP treatment with Levofloxacin , Zosyn and Vanco on 08/11/16 we noted a decline in renal function. Lasix and Vancomycin were promptly stopped Lasix is still being held Renal USS today 08/12 shows fatty liver and acute interstitial nephritis vs glomerulonephritis Will also hold Omeprazole urine eosinophils not found. nephrology was consulted (3) Acute on chronic diastolic heart failure Current Visit: Yes Status: Acute Assessment and plan: ECHO was WNL Hold lasix due to ANTOINETTE Monitor closely Continue other meds (4) Diabetes mellitus, type II, insulin dependent Current Visit: Yes Status: Chronic (5) HTN (hypertension) Current Visit: Yes Status: Chronic Qualifiers: Hypertension type: essential hypertension Qualified Code(s): I10 - Essential (primary) hypertension (6) Paroxysmal atrial fibrillation Current Visit: Yes Status: Chronic Assessment and plan: Continue metoprolol and aspirin Was noncompliant with Xarelto - Time Spent With Patient Greater than 35 minutes - Subjective Interval history: Complaining of severe epigastric pain that has been getting worse. Still feeling very weak, has a dry cough, no fevers, diarrhea or dysuria. No chest pain, still feeling short of breath - Constitutional Vitals: Temp Pulse Resp BP Pulse Ox 98.5 F 68 18 114/66 93 L 08/15/16 15:50 08/15/16 15:50 08/15/16 15:50 08/15/16 15:50 08/15/16 15:50 General appearance: Present: A&O X 3, pleasant, no acute distress, obese - Head Head exam: Present: atraumatic, normocephalic - Eye Eye exam: Present: PERRL, conjuntiva pink, sclera anicteric Pupils: Present: PERRL - Neck Neck exam general surgery: Present: supple, trachea midline. Absent: lymphadenopathy - Respiratory Respiratory exam: Present: CTAB, rales (Bilateral crackles, no wheezing). Absent: accessory muscle use, rhonchi, wheezes - Cardiovascular Cardiovascular exam: Present: RRR, +S1, +S2. Absent: diastolic murmur, gallop, rubs, systolic murmur - GI/Abdominal GI/Abdominal exam: Present: distended, normal bowel sounds, soft, tenderness ( Epigastric tenderness), no peritoneal signs. Absent: rebound - Extremities Exam Extremities exam: Present: warm, radial pulses palpable and symetrical. Absent : calf tenderness, cyanotic, pedal edema - Neurological Exam Neurological exam: Present: CN II-XII intact, oriented X3, no focal deficits. Absent: pronater drift, facial droop, speech deficit - Skin Skin exam: Present: dry, intact Internal Medicine: Result - Labs CBC & Chem 7: 08/15/16 10:14 08/15/16 10:14 Labs: Short CBC 08/15/16 Range/Units 10:14 WBC 11.0 (4.3-11.1) K/mcL Hgb 9.1 L (11.5-15.4) g/dL Hct 29.2 L (35.3-44.9) % Plt Count 269 (140-400) K/mcL Neutrophils # 9.5 H (1.6-8.9) K/mcL BMP 08/15/16 10:14 Sodium 138 Potassium 4.4 Chloride 99 Carbon Dioxide 24 BUN 22 H Creatinine 2.18 H Glucose 179 H Calcium 9.7 Liver Function 08/15/16 Range/Units 10:14 Total Bilirubin 0.7 (0.2-1.2) mg/dL AST 18 (5-34) Units/L ALT 11 (0-55) Units/L Alkaline Phosphatase 102 (38-126) Units/L Albumin 2.4 L (3.5-5.0) g/dL - ABG Interpretation ABG results: ABG ABG pH 7.48 pH Units (7.32-7.45) H 08/14/16 16:30 ABG pCO2 37 mmHg (35-45) 08/14/16 16:30 ABG pO2 217 mmHg (85-104) H 08/14/16 16:30 ABG O2 Saturation 100 % (95-98) H 08/14/16 16:30 PT/INR, D-dimer PT 12.7 Seconds (9.4-12.1) H 08/10/16 06:16 - Impressions Impressions Chest X-Ray 08/14/16 15:57 IMPRESSION: Worsening diffuse airspace disease concerning for diffuse pneumonia versus edema D/ / Pete Salazar MD / Pete Salazar MD Interpreting Provider: Pete Salazar MD Consult Discharge Plan - Plan Additional Instructions: #1 may shower, no tub bath for 2 weeks #2 wash incisions with soap and water and pat dry daily #3 no lifting, pushing, pulling more than 15 pounds for the next 2 weeks #4 no driving until off narcotics for 24 hours and able to safely react in the car #5 may climb stairs Referrals: Margoth Merrill CNP [Advanced Practice Nurse] - 08/20/16 8:45 am (surgery follow-up) Joanne Paez MD [Primary Care Provider] - 08/17/16 1:45 pm (web request sent on 08/09/16 )
[2016-08-15] MEDS: MetroNIDAZOLE 500 MG/100 ML 500 MG/100 ML BAG IVPB SCH ×2 (16:46→23:06)
[2016-08-15] MEDS: clonazePAM 0.5 MG TABLET PO SCH (19:37)
[2016-08-16] MEDS: *HR* OxyCODONE/APAP 5/325 TABLET PO PRN ×4 (03:59→23:48)
[2016-08-16] MEDS: Ipratropium/Albuterol Neb 3 ML IH SCH ×4 (04:23→21:48)
[2016-08-16 04:26] LABS: Basophils % 0.3 %; Eosinophils # 0.3 K/mcL (0.0-0.6); Hematocrit 29.2 % (35.3-44.9); Immature Granulocytes % 0.6 % (0-4); Lymphocytes # 1.2 K/mcL (0.6-4.6); Lymphocytes % 13.3 %; Mean Corpuscular HGB Conc 30.8 g/dL (31.6-35.5); Mean Corpuscular Hemoglobin 23.4 pg (28.0-33.3); Mean Platelet Volume 10.2 fL (9.4-12.4); Monocytes # 0.3 K/mcL (0.0-1.3); Monocytes % 3.8 %; Neutrophils # 7.2 K/mcL (1.6-8.9); Platelet Count 302 K/mcL (140-400); Red Blood Count 3.84 M/mcL (3.82-4.97); Red Cell Distribution Width 16.1 % (11.5-14.5)
[2016-08-16 04:36] LABS: Calcium 9.5 mg/dL (8.6-10.8); Potassium 3.9 mEq/L (3.5-4.5)
[2016-08-16] MEDS: *HR* Enoxaparin 40 MG/0.4 ML SYRINGE SQ SCH (05:56)
[2016-08-16] MEDS: Aspirin Enteric Coated 81 MG Tablet PO SCH (08:39)
[2016-08-16] MEDS: Pregabalin 50 MG CAPSULE PO SCH ×2 (08:39→21:13)
[2016-08-16] MEDS: Magic Mouthwash 10 ML UD Cup PO SCH ×3 (08:39→16:46)
[2016-08-16] MEDS: MetroNIDAZOLE 500 MG/100 ML 500 MG/100 ML BAG IVPB SCH ×3 (08:40→23:48)
[2016-08-16] MEDS: Insulin DETEMIR 100 UNIT/ML X5UNITS SQ SCH ×2 (08:41→21:22)
[2016-08-16] MEDS: *HR* OxyCODONE/APAP 10/325 TABLET PO PRN ×3 (08:41→21:13)
[2016-08-16] MEDS: Insulin LISPRO 300 UNITS/3 ML VIAL SQ SCH ×7 (08:56→21:22)
--- NOTE | 2016-08-16 10:22 | Nephrology Progress Note ---
<Ely Johnson Sky - Last Filed: 08/16/16 13:05> Date of Encounter: 08/16/16 Time of Encounter: 10:00 - Assessment and Plan (1) ANTOINETTE (acute kidney injury) Current Visit: Yes Status: Acute Elevated serum creatinine in the setting of IV contrast exposure, as well as diuretic and vancomycin use. Serum creatinine 2.51 today. Dose of PO lasix given yesterday likely to account for increase in serum creatinine today. She is auto diuresing well and following her 1.2 L fluid restriction. FeNa 2.8% indicating intrinsic renal pathology. CPK and uric acid within normal limits. No acute need for renal replacement therapy at this time. Continue renal protective strategy and avoid nephrotoxic agents if possible. (2) Acute and chronic respiratory failure with hypoxia Current Visit: Yes Status: Acute (3) Healthcare associated bacterial pneumonia Current Visit: Yes Status: Acute (4) Acute on chronic diastolic heart failure Current Visit: Yes Status: Acute Subjective Interval history: Patient seen and examined at the bedside. States she is not feeling well today , did not sleep well last night. Continues to require high-dose oxygen therapy via nasal cannula. Slight increase in serum creatinine today after dose of Lasix. Advised fluid restriction as patient is making great urine output. Objective - Vital Signs Vital signs: Vital Signs Temp Pulse Resp BP Pulse Ox 08/16/16 09:05 80 08/16/16 07:32 97.6 F 80 20 113/63 95 08/16/16 05:09 60 08/16/16 04:24 18 95 08/16/16 03:57 97.5 F L 75 22 108/43 94 L 08/16/16 00:39 98.4 F 75 22 95/53 96 08/16/16 00:00 78 94 L 08/15/16 23:29 20 96 08/15/16 20:27 99.9 F H 77 22 113/53 92 L 08/15/16 20:00 86 08/15/16 17:00 24 89 L 08/15/16 16:33 18 93 L 08/15/16 15:50 98.5 F 68 18 114/66 93 L 08/15/16 15:00 76 08/15/16 11:24 16 93 L 08/15/16 11:23 99.5 F 72 16 105/53 93 L 08/15/16 11:00 68 93 L Intake and Output 08/15/16 08/16/16 08/16/16 23:59 07:59 15:59 Intake Total 100 / 100 540 / 540 340 / 340 Output Total 1400 / 1400 600 / 600 Balance -1300 / -1300 -60 / -60 340 / 340 Intake: IV Fluids 100 / 100 100 / 100 100 / 100 Flagyl 500 MG/100 ML 500 100 / 100 100 / 100 100 / 100 mg In 100 ml @ 100 mls/hr IVPB Q8HR [facility] Rx#: [id number] Oral 440 / 440 240 / 240 Output: Urine 1400 / 1400 600 / 600 Other: Meal Breakfast Percent of Meal Consumed 100% Weight 93.8 kg Blood Glucose* 141 130 Patient Weight 08/16/16 23:59 Weight 93.8 kg - General Appearance Exam: General: Patient is alert and in no acute distress HEENT: Normocephalic atraumatic, pupils are equal round and reactive to light and accommodation, tympanic membrane is intact, nares is patent, mucous membranes moist, throat is not injected, no JVD, trachea is midline Cardiovascular: Regular rate and rhythm without murmur Respiratory: Lungs are clear to auscultation bilaterally, no wheezing, rhonchi, rales Abdomen: Soft, nontender, nondistended, positive bowel sounds in all 4 quadrants Extremities: Warm, dry, no edema Neuro: A&Ox3, speech is appropriate, cranial nerves II through XII are normal as tested - Lab 08/16/16 Unknown 08/16/16 Unknown Most recent lab results ABG pH 7.48 pH Units (7.32-7.45) H 08/14/16 16:30 ABG pCO2 37 mmHg (35-45) 08/14/16 16:30 ABG pO2 217 mmHg (85-104) H 08/14/16 16:30 ABG HCO3 27.6 mEQ/L (21-27) H 08/14/16 16:30 ABG O2 Saturation 100 % (95-98) H 08/14/16 16:30 Calcium 9.5 mg/dL (8.6-10.8) 08/16/16 Unknown Magnesium 1.6 mg/dL (1.6-2.6) 08/10/16 06:16 Urine Creatinine 24 mg/dL 08/13/16 14:47 Urine Sodium 46.0 mEq/L 08/13/16 14:47 Consult Discharge Plan - Plan Additional Instructions: #1 may shower, no tub bath for 2 weeks #2 wash incisions with soap and water and pat dry daily #3 no lifting, pushing, pulling more than 15 pounds for the next 2 weeks #4 no driving until off narcotics for 24 hours and able to safely react in the car #5 may climb stairs Referrals: Margoth Merrill CNP [Advanced Practice Nurse] - 08/20/16 8:45 am (surgery follow-up) Joanne Paez MD [Primary Care Provider] - 08/17/16 1:45 pm (web request sent on 08/09/16 ) <Harsh Orta - Last Filed: 08/16/16 23:53> Date of Encounter: 08/16/16 - Assessment and Plan (1) ANTOINETTE (acute kidney injury) Current Visit: Yes Status: Acute Objective - Vital Signs Vital signs: Vital Signs Temp Pulse Resp BP Pulse Ox 08/16/16 21:48 19 94 L 08/16/16 21:00 98.2 F 75 20 107/50 94 L 08/16/16 20:10 77 08/16/16 16:26 18 89 L 08/16/16 16:06 98.2 F 66 18 97/52 94 L 08/16/16 12:26 73 08/16/16 11:29 97.8 F 69 20 105/66 96 08/16/16 11:21 14 98 08/16/16 09:05 80 08/16/16 07:32 97.6 F 80 20 113/63 95 08/16/16 05:09 60 08/16/16 04:24 18 95 08/16/16 03:57 97.5 F L 75 22 108/43 94 L 08/16/16 00:39 98.4 F 75 22 95/53 96 08/16/16 00:00 78 94 L Intake and Output 08/16/16 08/16/16 08/16/16 07:59 15:59 23:59 Intake Total 540 / 540 340 / 340 870 / 870 Output Total 600 / 600 650 / 650 Balance -60 / -60 340 / 340 220 / 220 Intake: IV Fluids 100 / 100 100 / 100 100 / 100 Flagyl 500 MG/100 ML 500 100 / 100 100 / 100 100 / 100 mg In 100 ml @ 100 mls/hr IVPB Q8HR [facility] Rx#: [id number] Oral 440 / 440 240 / 240 770 / 770 Output: Urine 600 / 600 650 / 650 Other: Meal Breakfast Percent of Meal Consumed 100% Stool Size Moderate Stool Consistency soft Stool Color Brown Weight 93.8 kg Blood Glucose* 130 113 233 Patient Weight 08/16/16 23:59 Weight 93.8 kg - Lab 08/16/16 Unknown 08/16/16 Unknown Most recent lab results ABG pH 7.48 pH Units (7.32-7.45) H 08/14/16 16:30 ABG pCO2 37 mmHg (35-45) 08/14/16 16:30 ABG pO2 217 mmHg (85-104) H 08/14/16 16:30 ABG HCO3 27.6 mEQ/L (21-27) H 08/14/16 16:30 ABG O2 Saturation 100 % (95-98) H 08/14/16 16:30 Calcium 9.5 mg/dL (8.6-10.8) 08/16/16 Unknown Magnesium 1.6 mg/dL (1.6-2.6) 08/10/16 06:16 Urine Creatinine 24 mg/dL 08/13/16 14:47 Urine Sodium 46.0 mEq/L 08/13/16 14:47 - Attending Attestation I examined this patient and my medical decision-making was reviewed with the LAW FIRM RECEPTIONIST/PA/Advanced Practice Nurse/Resident Physician. I agree with the documented findings, disposition and treatment plan as described except to the extent set forth below.
[2016-08-16] MEDS: Cefepime HCl 2,000 MG in D5% in Water (Mini-Bag+) 100 ML IVPB SCH (12:00)
--- NOTE | 2016-08-16 15:05 | Internal Med Progress Note ---
Date of Encounter: 08/16/16 Time of Encounter: 15:03 - Assessment and plan (1) Healthcare associated bacterial pneumonia Current Visit: Yes Status: Acute Assessment and plan: Acute hypoxic respiratory failure secondary to Healthcare associated pneumonia present upon admission, consider possible intraabdominal collection (increased epigastric tenderness) Discontinue Levaquin day 7 Consider discontinuing cefepime day 3, and flagyl IV day 2 Vancomycin and Zosyn were discontinued due to acute renal failure CT of the abdomen from 08/16/2016 shows smaller fluid collection in the gallbladder. That has decreased in size measuring now 4.4 cm x 3.5 cm. Gas collection has resolved suggesting improvement in postoperative either hematoma , abscess or seroma. New nodular soft tissue densities along the peritoneum in the pelvis, suggesting retained spilled gallstones? CT of the chest and abdomen on 08/09/16 showed no pulmonary emboli and showed peribronchial vascular groundglass and consolidative opacities in both lungs, bilateral pleural effusions . The report read new changes of cholecystectomy with gas and fluid within the gallbladder fossa representing possible developing abscess (unlikely) with trace free fluid in the abdomen and pelvis. Per Dr. Brannon: "the collection in the RUQ is consistent with Nu-knit which was placed in the RUQ during surgery to achieve hemostasis. The material is an absorbable material which will break down over time. There is no evidence of post-operative abscess" HIDA scan is negative for a leak No surgical intervention indicated at this time Consider re-consulting surgery (2) ANTOINETTE (acute kidney injury) Current Visit: Yes Status: Acute Assessment and plan: Likely related to infection in combination with HCAP treatment with Levofloxacin , Zosyn and Vanco , possibly contrast-induced nephropathy 08/11/16 decline in renal function. Lasix and Vancomycin were stopped Lasix is still being held Renal USS today 08/12 shows fatty liver and acute interstitial nephritis vs glomerulonephritis Will also hold Omeprazole urine eosinophils not found. nephrology consulted (3) Acute on chronic diastolic heart failure Current Visit: Yes Status: Acute Assessment and plan: ECHO was WNL Hold lasix due to ANTOINETTE Monitor closely Continue other meds (4) Diabetes mellitus, type II, insulin dependent Current Visit: Yes Status: Chronic (5) HTN (hypertension) Current Visit: Yes Status: Chronic (6) Paroxysmal atrial fibrillation Current Visit: Yes Status: Chronic Assessment and plan: Continue metoprolol and aspirin Was noncompliant with Xarelto - Time Spent With Patient Greater than 35 minutes - Subjective Interval history: Complaining of right upper quadrant and epigastric pain Still feeling very weak, has a dry cough, no fevers, diarrhea or dysuria. No chest pain, still feeling less short of breath - Constitutional Vitals: Temp Pulse Resp BP Pulse Ox 97.8 F 73 20 105/66 96 08/16/16 11:29 08/16/16 12:26 08/16/16 11:29 08/16/16 11:29 08/16/16 11:29 General appearance: Present: A&O X 3, morbidly obese, pleasant, no acute distress - Head Head exam: Present: atraumatic, normocephalic - Eye Eye exam: Present: PERRL, conjuntiva pink, sclera anicteric Pupils: Present: PERRL - Neck Neck exam general surgery: Present: supple, trachea midline. Absent: lymphadenopathy - Respiratory Respiratory exam: Present: decreased breath sounds, CTAB. Absent: accessory muscle use, rales, rhonchi, wheezes - Cardiovascular Cardiovascular exam: Present: RRR, +S1, +S2. Absent: diastolic murmur, gallop, rubs, systolic murmur - GI/Abdominal GI/Abdominal exam: Present: distended, normal bowel sounds, soft, tenderness ( Epigastric and right upper quadrant tenderness), no peritoneal signs - Extremities Exam Extremities exam: Present: warm, radial pulses palpable and symetrical. Absent : calf tenderness, cyanotic, pedal edema - Neurological Exam Neurological exam: Present: CN II-XII intact, oriented X3, no focal deficits. Absent: pronater drift, facial droop, speech deficit - Skin Skin exam: Present: dry, intact Internal Medicine: Result - Labs CBC & Chem 7: 08/16/16 Unknown 08/16/16 Unknown Labs: Short CBC 08/16/16 Range/Units Unknown WBC 9.0 (4.3-11.1) K/mcL Hgb 9.0 L (11.5-15.4) g/dL Hct 29.2 L (35.3-44.9) % Plt Count 302 (140-400) K/mcL Neutrophils # 7.2 (1.6-8.9) K/mcL BMP 08/16/16 Unknown Sodium 136 Potassium 3.9 Chloride 94 L Carbon Dioxide 28 BUN 33 H D Creatinine 2.51 H Glucose 149 H Calcium 9.5 - ABG Interpretation ABG results: ABG ABG pH 7.48 pH Units (7.32-7.45) H 08/14/16 16:30 ABG pCO2 37 mmHg (35-45) 08/14/16 16:30 ABG pO2 217 mmHg (85-104) H 08/14/16 16:30 ABG O2 Saturation 100 % (95-98) H 08/14/16 16:30 PT/INR, D-dimer PT 12.7 Seconds (9.4-12.1) H 08/10/16 06:16 - Impressions Impressions Abdomen/Pelvis CT 08/16/16 07:30 IMPRESSION: 1. The fluid collection in the gallbladder fossa has slightly decreased in size, now measuring 4.4 cm x 3.5 cm. Furthermore, previously seen gas within collection has resolved. The findings suggest improvement in a postoperative abscess, seroma, or hematoma. 2. New nodular soft tissue densities along the peritoneum in the pelvis following resolution of previously seen trace ascites. In retrospect, subtle hyperdensities are noted layering within the cul-de-sac on the prior study. The findings suggest retained spilled gallstones. 3. Persistent though improved groundglass opacity in both lung bases with persistent peripheral sparing, most likely improved edema. 4. Mild cardiomegaly. 5. Mild hepatosplenomegaly. D/ / Virgil Garcias MD / Virgil Garcias MD Interpreting Provider: Virgil Garcias MD Consult Discharge Plan - Plan Additional Instructions: #1 may shower, no tub bath for 2 weeks #2 wash incisions with soap and water and pat dry daily #3 no lifting, pushing, pulling more than 15 pounds for the next 2 weeks #4 no driving until off narcotics for 24 hours and able to safely react in the car #5 may climb stairs Referrals: Margoth Merrill CNP [Advanced Practice Nurse] - 08/20/16 8:45 am (surgery follow-up) Joanne Paez MD [Primary Care Provider] - 08/17/16 1:45 pm (web request sent on 08/09/16 )
[2016-08-16] MEDS: predniSONE 20 MG TABLET PO SCH (16:46)
[2016-08-16] MEDS: clonazePAM 0.5 MG TABLET PO SCH (21:13)
[2016-08-17] MEDS: Ipratropium/Albuterol Neb 3 ML IH SCH ×4 (04:05→23:10)
[2016-08-17] MEDS: ALPRAZolam 0.25 MG TABLET PO PRN ×3 (04:28→15:31)
[2016-08-17] MEDS: *HR* OxyCODONE/APAP 10/325 TABLET PO PRN ×3 (04:28→21:00)
[2016-08-17 05:28] LABS: Basophils % 0.1 %; Eosinophils % 0.1 %; Hematocrit 30.8 % (35.3-44.9); Hemoglobin 9.6 g/dL (11.5-15.4); Immature Granulocytes % 0.7 % (0-4); Lymphocytes # 0.5 K/mcL (0.6-4.6); Lymphocytes % 6.9 %; Mean Corpuscular HGB Conc 31.2 g/dL (31.6-35.5); Mean Corpuscular Hemoglobin 23.6 pg (28.0-33.3); Mean Corpuscular Volume 75.7 fL (83.0-100.0); Mean Platelet Volume 11.1 fL (9.4-12.4); Monocytes # 0.2 K/mcL (0.0-1.3); Monocytes % 2.7 %; Neutrophils # 6.7 K/mcL (1.6-8.9); Platelet Count 378 K/mcL (140-400); Red Blood Count 4.07 M/mcL (3.82-4.97); Red Cell Distribution Width 15.9 % (11.5-14.5); Segmented Neutrophils % 89.5 %
[2016-08-17 05:52] LABS: Calcium 9.5 mg/dL (8.6-10.8); Potassium 4.8 mEq/L (3.5-4.5)
[2016-08-17] MEDS: *HR* Enoxaparin 30 MG/0.3 ML SYRINGE SQ SCH (06:38)
--- NOTE | 2016-08-17 08:22 | Nephrology Progress Note ---
<SherrillGerardo herbert - Last Filed: 08/17/16 08:17> Date of Encounter: 08/17/16 - Assessment and Plan (1) ANTOINETTE (acute kidney injury) Current Visit: Yes Status: Acute Non-oliguric ANTOINETTE, was polyuric yesterday (in part autodiuresis and from diuretics) I reviewed the renal U/S: large kidneys are most commonly seen in diabetics, and since the UA on admission was bland (without pyuria or hematuria) so I do not suspect acute interstial nephritis (the U Eos were also negative). She did have glucosuria, which is consistent with hyperglycemia. Would check HIV if not already drawn, just to be cautious. (2) Diabetes mellitus, type II, insulin dependent Current Visit: Yes Status: Chronic (3) HTN (hypertension) Current Visit: Yes Status: Chronic Qualifiers: Hypertension type: essential hypertension Qualified Code(s): I10 - Essential (primary) hypertension Objective - Vital Signs Vital signs: Vital Signs Temp Pulse Resp BP Pulse Ox 08/17/16 04:20 97.8 F 84 20 137/62 94 L 08/17/16 04:05 18 98 08/16/16 23:50 97.8 F 66 19 119/68 94 L 08/16/16 21:48 19 94 L 08/16/16 21:00 98.2 F 75 20 107/50 94 L 08/16/16 20:10 77 08/16/16 16:26 18 89 L 08/16/16 16:06 98.2 F 66 18 97/52 94 L 08/16/16 12:26 73 08/16/16 11:29 97.8 F 69 20 105/66 96 08/16/16 11:21 14 98 08/16/16 09:05 80 Intake and Output 08/16/16 08/17/16 08/17/16 23:59 07:59 15:59 Intake Total 870 / 870 160 / 160 Output Total 650 / 650 1100 / 1100 600 / 600 Balance 220 / 220 -940 / -940 -600 / -600 Intake: IV Fluids 100 / 100 100 / 100 Flagyl 500 MG/100 ML 500 100 / 100 100 / 100 mg In 100 ml @ 100 mls/hr IVPB Q8HR [facility] Rx#: [id number] Oral 770 / 770 60 / 60 Output: Urine 650 / 650 1100 / 1100 600 / 600 Other: Stool Size Moderate Stool Consistency soft Stool Color Brown # Voids 2 Weight 93.3 kg Blood Glucose* 233 310 Patient Weight 08/17/16 23:59 Weight 93.3 kg - Lab 08/17/16 04:45 08/17/16 04:45 Most recent lab results ABG pH 7.48 pH Units (7.32-7.45) H 08/14/16 16:30 ABG pCO2 37 mmHg (35-45) 08/14/16 16:30 ABG pO2 217 mmHg (85-104) H 08/14/16 16:30 ABG HCO3 27.6 mEQ/L (21-27) H 08/14/16 16:30 ABG O2 Saturation 100 % (95-98) H 08/14/16 16:30 Calcium 9.5 mg/dL (8.6-10.8) 08/17/16 04:45 Magnesium 1.6 mg/dL (1.6-2.6) 08/10/16 06:16 Urine Creatinine 24 mg/dL 08/13/16 14:47 Urine Sodium 46.0 mEq/L 08/13/16 14:47 Consult Discharge Plan - Plan Additional Instructions: #1 may shower, no tub bath for 2 weeks #2 wash incisions with soap and water and pat dry daily #3 no lifting, pushing, pulling more than 15 pounds for the next 2 weeks #4 no driving until off narcotics for 24 hours and able to safely react in the car #5 may climb stairs Referrals: Margoth Merrill CNP [Advanced Practice Nurse] - 08/20/16 8:45 am (surgery follow-up) Joanne Paez MD [Primary Care Provider] - 08/24/16 10:45 am ( ) <Ely Johnson - Last Filed: 08/17/16 16:58> Date of Encounter: 08/17/16 Time of Encounter: 16:51 - Assessment and Plan (1) ANTOINETTE (acute kidney injury) Current Visit: Yes Status: Acute Improvement overnight in the patient's serum creatinine to 2.18. Would anticipate continued improvement with holding nephrotoxic agents. <Entered By Gerardo Ramos - 08/17/16 08:23 > Non-oliguric ANTOINETTE, was polyuric yesterday (in part autodiuresis and from diuretics) I reviewed the renal U/S: large kidneys are most commonly seen in diabetics, and since the UA on admission was bland (without pyuria or hematuria) so I do not suspect acute interstial nephritis (the U Eos were also negative). She did have glucosuria, which is consistent with hyperglycemia. Would check HIV if not already drawn, just to be cautious. (2) Acute and chronic respiratory failure with hypoxia Current Visit: Yes Status: Acute (3) Healthcare associated bacterial pneumonia Current Visit: Yes Status: Acute (4) Acute on chronic diastolic heart failure Current Visit: Yes Status: Acute Subjective Interval history: Patient seen and examined at the bedside. No acute events overnight per nursing staff. Decrease in the patient's oxygen demand after initiation of low- dose prednisone. Patient states that she is feeling a little bit better today. Continues to follow fluid restricted diet and had less urine output today. Objective - Vital Signs Vital signs: Vital Signs Temp Pulse Resp BP Pulse Ox 08/17/16 16:27 18 96 08/17/16 15:47 97.6 F 69 18 104/46 96 08/17/16 15:35 79 97 08/17/16 11:45 74 08/17/16 11:41 97 F L 71 20 105/66 91 L 08/17/16 10:42 18 97 08/17/16 08:40 98.2 F 81 16 120/77 94 L 08/17/16 04:20 97.8 F 84 20 137/62 94 L 08/17/16 04:05 18 98 08/16/16 23:50 97.8 F 66 19 119/68 94 L 08/16/16 21:48 19 94 L 08/16/16 21:00 98.2 F 75 20 107/50 94 L 08/16/16 20:10 77 Intake and Output 08/17/16 08/17/16 08/17/16 07:59 15:59 23:59 Intake Total 160 / 160 820 / 820 Output Total 1100 / 1100 1100 / 1100 500 / 500 Balance -940 / -940 -280 / -280 -500 / -500 Intake: IV Fluids 100 / 100 100 / 100 Flagyl 500 MG/100 ML 500 100 / 100 100 / 100 mg In 100 ml @ 100 mls/hr IVPB Q8HR [facility] Rx#: [id number] Oral 60 / 60 720 / 720 Output: Urine 1100 / 1100 1100 / 1100 500 / 500 Other: Meal Lunch Percent of Meal Consumed 5% # Voids 2 Weight 93.3 kg Blood Glucose* 161 Patient Weight 08/17/16 23:59 Weight 93.3 kg - General Appearance Exam: General: Patient is alert and in no acute distress HEENT: Normocephalic atraumatic, pupils are equal round and reactive to light and accommodation, tympanic membrane is intact, nares is patent, mucous membranes moist, throat is not injected, no JVD, trachea is midline Cardiovascular: Regular rate and rhythm without murmur Respiratory: Lungs are clear to auscultation bilaterally, no wheezing, rhonchi, rales Abdomen: Soft, nontender, obese, positive bowel sounds in all 4 quadrants Extremities: Warm, dry, no edema Neuro: A&Ox3, speech is appropriate, cranial nerves II through XII are normal as tested - Lab 08/17/16 04:45 08/17/16 04:45 Most recent lab results ABG pH 7.48 pH Units (7.32-7.45) H 08/14/16 16:30 ABG pCO2 37 mmHg (35-45) 08/14/16 16:30 ABG pO2 217 mmHg (85-104) H 08/14/16 16:30 ABG HCO3 27.6 mEQ/L (21-27) H 08/14/16 16:30 ABG O2 Saturation 100 % (95-98) H 08/14/16 16:30 Calcium 9.5 mg/dL (8.6-10.8) 08/17/16 04:45 Magnesium 1.6 mg/dL (1.6-2.6) 08/10/16 06:16 Urine Creatinine 24 mg/dL 08/13/16 14:47 Urine Sodium 46.0 mEq/L 08/13/16 14:47
[2016-08-17] MEDS: *HR* OxyCODONE/APAP 5/325 TABLET PO PRN ×2 (08:43→15:31)
[2016-08-17] MEDS: Aspirin Enteric Coated 81 MG Tablet PO SCH (08:43)
[2016-08-17] MEDS: predniSONE 20 MG TABLET PO SCH (08:43)
[2016-08-17] MEDS: Pregabalin 50 MG CAPSULE PO SCH ×2 (08:44→20:59)
[2016-08-17] MEDS: Magic Mouthwash 10 ML UD Cup PO SCH ×3 (08:46→15:31)
[2016-08-17] MEDS: Insulin LISPRO 300 UNITS/3 ML VIAL SQ SCH ×7 (08:46→21:07)
[2016-08-17] MEDS: MetroNIDAZOLE 500 MG/100 ML 500 MG/100 ML BAG IVPB SCH ×2 (08:49→15:34)
[2016-08-17] MEDS: Insulin DETEMIR 100 UNIT/ML X5UNITS SQ SCH ×2 (08:50→21:02)
[2016-08-17] MEDS: Cefepime HCl 2,000 MG in D5% in Water (Mini-Bag+) 100 ML IVPB SCH (12:00)
--- NOTE | 2016-08-17 14:04 | Internal Med Progress Note ---
Date of Encounter: 08/17/16 Time of Encounter: 14:03 - Assessment and plan (1) Healthcare associated bacterial pneumonia Current Visit: Yes Status: Acute Assessment and plan: Acute hypoxic respiratory failure secondary to acute COPD exacerbation from Healthcare associated pneumonia/possible gram-negative pneumonia present upon admission, consider possible intraabdominal collection (increased epigastric tenderness) Discontinued Levaquin at day 7 Consider discontinuing cefepime day 4, and flagyl IV day 3 Prednisone was started on 08/16/2016 as the patient was requiring 8 L of oxygen , now requiring 4-5 L Vancomycin and Zosyn were discontinued due to acute renal failure CT of the abdomen from 08/16/2016 shows smaller fluid collection in the gallbladder. That has decreased in size measuring now 4.4 cm x 3.5 cm. Gas collection has resolved suggesting improvement in postoperative either hematoma , abscess or seroma. New nodular soft tissue densities along the peritoneum in the pelvis, suggesting retained spilled gallstones? CT of the chest and abdomen on 08/09/16 showed no pulmonary emboli and showed peribronchial vascular groundglass and consolidative opacities in both lungs, bilateral pleural effusions . The report read new changes of cholecystectomy with gas and fluid within the gallbladder fossa representing possible developing abscess (unlikely) with trace free fluid in the abdomen and pelvis. Per Dr. Brannon: "the collection in the RUQ is consistent with Nu-knit which was placed in the RUQ during surgery to achieve hemostasis. The material is an absorbable material which will break down over time. There is no evidence of post-operative abscess" HIDA scan is negative for a leak No surgical intervention indicated at this time Consider re-consulting surgery (2) ANTOINETTE (acute kidney injury) Current Visit: Yes Status: Acute Assessment and plan: Likely related to infection in combination with HCAP treatment with Levofloxacin , Zosyn and Vanco , possibly contrast-induced nephropathy 08/11/16 decline in renal function. Lasix and Vancomycin were stopped Increase fluid restriction up to 1500 mL per day Lasix is still being held Renal USS today 08/12 shows fatty liver and acute interstitial nephritis vs glomerulonephritis Will also hold Omeprazole urine eosinophils not found. nephrology consulted (3) Acute on chronic diastolic heart failure Current Visit: Yes Status: Acute Assessment and plan: ECHO was WNL Hold lasix due to ANTOINETTE Monitor closely Continue other meds (4) Diabetes mellitus, type II, insulin dependent Current Visit: Yes Status: Chronic (5) HTN (hypertension) Current Visit: Yes Status: Chronic (6) Paroxysmal atrial fibrillation Current Visit: Yes Status: Chronic Assessment and plan: Continue metoprolol and aspirin Was noncompliant with Xarelto - Time Spent With Patient Greater than 35 minutes - Subjective Interval history: Complaining of less abdominal pain Feeling less weak, has a productive cough, no fevers, diarrhea or dysuria. No chest pain. - Constitutional Vitals: Temp Pulse Resp BP Pulse Ox 97 F L 71 20 105/66 91 L 08/17/16 11:41 08/17/16 11:41 08/17/16 11:41 08/17/16 11:41 08/17/16 11:41 General appearance: Present: A&O X 3, morbidly obese, pleasant, no acute distress - Head Head exam: Present: atraumatic, normocephalic - Eye Eye exam: Present: PERRL, conjuntiva pink, sclera anicteric Pupils: Present: PERRL - Neck Neck exam general surgery: Present: supple, trachea midline. Absent: lymphadenopathy - Respiratory Respiratory exam: Present: decreased breath sounds (Sounds less congested), CTAB. Absent: accessory muscle use, rales, rhonchi, wheezes - Cardiovascular Cardiovascular exam: Present: RRR, +S1, +S2. Absent: diastolic murmur, gallop, rubs, systolic murmur - GI/Abdominal GI/Abdominal exam: Present: distended, normal bowel sounds, soft, no peritoneal signs. Absent: tenderness - Extremities Exam Extremities exam: Present: warm, radial pulses palpable and symetrical. Absent : calf tenderness, cyanotic, pedal edema - Neurological Exam Neurological exam: Present: CN II-XII intact, oriented X3, no focal deficits. Absent: pronater drift, facial droop, speech deficit - Skin Skin exam: Present: dry, intact Internal Medicine: Result - Labs CBC & Chem 7: 08/17/16 04:45 08/17/16 04:45 Labs: Short CBC 08/17/16 Range/Units 04:45 WBC 7.4 (4.3-11.1) K/mcL Hgb 9.6 L (11.5-15.4) g/dL Hct 30.8 L (35.3-44.9) % Plt Count 378 (140-400) K/mcL Neutrophils # 6.7 (1.6-8.9) K/mcL BMP 08/17/16 04:45 Sodium 136 Potassium 4.8 H Chloride 99 Carbon Dioxide 25 BUN 47 H D Creatinine 2.18 H Glucose 394 H Calcium 9.5 - ABG Interpretation ABG results: ABG ABG pH 7.48 pH Units (7.32-7.45) H 08/14/16 16:30 ABG pCO2 37 mmHg (35-45) 08/14/16 16:30 ABG pO2 217 mmHg (85-104) H 08/14/16 16:30 ABG O2 Saturation 100 % (95-98) H 08/14/16 16:30 PT/INR, D-dimer PT 12.7 Seconds (9.4-12.1) H 08/10/16 06:16 Consult Discharge Plan - Plan Additional Instructions: #1 may shower, no tub bath for 2 weeks #2 wash incisions with soap and water and pat dry daily #3 no lifting, pushing, pulling more than 15 pounds for the next 2 weeks #4 no driving until off narcotics for 24 hours and able to safely react in the car #5 may climb stairs Referrals: Margoth Merrill CNP [Advanced Practice Nurse] - 08/20/16 8:45 am (surgery follow-up) Joanne Paez MD [Primary Care Provider] - 08/24/16 10:45 am ( )
[2016-08-17] MEDS: clonazePAM 0.5 MG TABLET PO SCH (20:59)
[2016-08-18] MEDS: MetroNIDAZOLE 500 MG/100 ML 500 MG/100 ML BAG IVPB SCH ×3 (00:05→16:10)
[2016-08-18] MEDS: ALPRAZolam 0.25 MG TABLET PO PRN ×3 (00:05→16:09)
[2016-08-18] MEDS: *HR* OxyCODONE/APAP 5/325 TABLET PO PRN ×3 (02:32→16:00)
[2016-08-18] MEDS: Ipratropium/Albuterol Neb 3 ML IH SCH ×4 (04:33→22:07)
[2016-08-18] MEDS: *HR* OxyCODONE/APAP 10/325 TABLET PO PRN ×3 (05:06→19:56)
[2016-08-18] MEDS: *HR* Enoxaparin 30 MG/0.3 ML SYRINGE SQ SCH (05:06)
[2016-08-18 05:23] LABS: Calcium 9.6 mg/dL (8.6-10.8)
[2016-08-18] MEDS: Insulin DETEMIR 100 UNIT/ML X5UNITS SQ SCH ×2 (08:55→21:36)
[2016-08-18] MEDS: Pregabalin 50 MG CAPSULE PO SCH ×2 (08:56→21:36)
[2016-08-18] MEDS: Aspirin Enteric Coated 81 MG Tablet PO SCH (08:57)
[2016-08-18] MEDS: predniSONE 20 MG TABLET PO SCH (08:58)
[2016-08-18] MEDS: Magic Mouthwash 10 ML UD Cup PO SCH ×3 (08:58→16:11)
[2016-08-18] MEDS: Insulin LISPRO 300 UNITS/3 ML VIAL SQ SCH ×7 (08:59→21:37)
[2016-08-18] MEDS: Cefepime HCl 2,000 MG in D5% in Water (Mini-Bag+) 100 ML IVPB SCH (11:43)
--- NOTE | 2016-08-18 14:28 | Nephrology Progress Note ---
Date of Encounter: 08/18/16 Time of Encounter: 09:40 - Assessment and Plan (1) ANTOINETTE (acute kidney injury) Current Visit: Yes Status: Acute Non-oliguric ANTOINETTE, improving. Likely multifactorial in etiology I reviewed the renal U/S: large kidneys are most commonly seen in diabetics, and since the UA on admission was bland (without pyuria or hematuria) so I do not suspect acute interstial nephritis (the U Eos were also negative). She did have glucosuria, which is consistent with hyperglycemia. Follow a renal protective strategy: dose Rx by GFR and avoid nephrotoxins. Thank you (2) Diabetes mellitus, type II, insulin dependent Current Visit: Yes Status: Chronic (3) HTN (hypertension) Current Visit: Yes Status: Chronic Qualifiers: Hypertension type: essential hypertension Qualified Code(s): I10 - Essential (primary) hypertension Objective - Vital Signs Vital signs: Vital Signs Temp Pulse Resp BP Pulse Ox 08/18/16 11:49 20 98 08/18/16 11:35 97.6 F 61 20 130/65 98 08/18/16 11:25 98.5 F 62 18 130/65 98 08/18/16 08:30 97.5 F L 77 18 125/57 100 08/18/16 07:16 97.5 F L 77 18 125/57 100 08/18/16 06:00 74 16 94 L 08/18/16 04:33 16 97 08/18/16 04:28 98.1 F 77 21 130/53 97 08/18/16 04:22 81 08/18/16 02:21 73 18 116/50 96 08/18/16 00:58 97.8 F 75 17 125/69 94 L 08/18/16 00:00 84 08/17/16 23:10 18 97 08/17/16 21:00 98 08/17/16 20:00 74 08/17/16 16:27 18 96 08/17/16 15:47 97.6 F 69 18 104/46 96 08/17/16 15:35 79 97 Intake and Output 08/17/16 08/18/16 08/18/16 23:59 07:59 15:59 Intake Total 720 / 720 460 / 460 860 / 860 Output Total 500 / 500 1100 / 1100 950 / 950 Balance 220 / 220 -640 / -640 -90 / -90 Intake: IV Fluids 100 / 100 100 / 100 200 / 200 Maxipime 2,000 MG In 100 / 100 Dextrose 5% (Minibag+) 100 ML 100 ML @ 200 mls/ hr IVPB Q24H [facility] Rx#: [id number] Flagyl 500 MG/100 ML 500 100 / 100 100 / 100 100 / 100 mg In 100 ml @ 100 mls/hr IVPB Q8HR [facility] Rx#: [id number] Oral 620 / 620 360 / 360 660 / 660 Output: Urine 500 / 500 1100 / 1100 950 / 950 Other: Meal Dinner Lunch Percent of Meal Consumed 100% 50% Stool Size Moderate Stool Consistency formed Stool Color Brown # Bowel Movements 1 Weight 93.2 kg Blood Glucose* 393 206 234 Patient Weight 08/18/16 23:59 Weight 93.2 kg - General Appearance Exam: General: Patient is alert and in no acute distress HEENT: Normocephalic atraumatic, pupils are equal round and reactive to light and accommodation, tympanic membrane is intact, nares is patent, mucous membranes moist, throat is not injected, no JVD, trachea is midline Cardiovascular: Regular rate and rhythm without murmur Respiratory: Lungs are clear to auscultation bilaterally, no wheezing, rhonchi, rales Abdomen: Soft, nontender, obese, positive bowel sounds in all 4 quadrants Extremities: Warm, dry, no edema Neuro: A&Ox3, speech is appropriate, cranial nerves II through XII are normal as tested - Lab 08/17/16 04:45 08/18/16 04:50 Most recent lab results ABG pH 7.48 pH Units (7.32-7.45) H 08/14/16 16:30 ABG pCO2 37 mmHg (35-45) 08/14/16 16:30 ABG pO2 217 mmHg (85-104) H 08/14/16 16:30 ABG HCO3 27.6 mEQ/L (21-27) H 08/14/16 16:30 ABG O2 Saturation 100 % (95-98) H 08/14/16 16:30 Calcium 9.6 mg/dL (8.6-10.8) 08/18/16 04:50 Magnesium 1.6 mg/dL (1.6-2.6) 08/10/16 06:16 Urine Creatinine 24 mg/dL 08/13/16 14:47 Urine Sodium 46.0 mEq/L 08/13/16 14:47 Consult Discharge Plan - Plan Additional Instructions: #1 may shower, no tub bath for 2 weeks #2 wash incisions with soap and water and pat dry daily #3 no lifting, pushing, pulling more than 15 pounds for the next 2 weeks #4 no driving until off narcotics for 24 hours and able to safely react in the car #5 may climb stairs Referrals: Margoth Merrill CNP [Advanced Practice Nurse] - 08/20/16 8:45 am (surgery follow-up) Joanne Paez MD [Primary Care Provider] - 08/24/16 10:45 am ( )
--- NOTE | 2016-08-18 16:14 | Internal Med Progress Note ---
Date of Encounter: 08/18/16 Time of Encounter: 16:12 - Assessment and plan (1) Healthcare associated bacterial pneumonia Current Visit: Yes Status: Acute Assessment and plan: Acute hypoxic respiratory failure secondary to acute COPD exacerbation from Healthcare associated pneumonia/possible gram-negative pneumonia present upon admission, consider possible intraabdominal collection (increased epigastric tenderness) Discontinued Levaquin at day 7 Consider discontinuing cefepime day 5, and flagyl IV day 4 Prednisone was started on 08/16/2016 as the patient was requiring 8 L of oxygen , now requiring 2 L Vancomycin and Zosyn were discontinued due to acute renal failure CT of the abdomen from 08/16/2016 shows smaller fluid collection in the gallbladder. That has decreased in size measuring now 4.4 cm x 3.5 cm. Gas collection has resolved suggesting improvement in postoperative either hematoma , abscess or seroma. New nodular soft tissue densities along the peritoneum in the pelvis, suggesting retained spilled gallstones? CT of the chest and abdomen on 08/09/16 showed no pulmonary emboli and showed peribronchial vascular groundglass and consolidative opacities in both lungs, bilateral pleural effusions . The report read new changes of cholecystectomy with gas and fluid within the gallbladder fossa representing possible developing abscess (unlikely) with trace free fluid in the abdomen and pelvis. Per Dr. Brannon: "the collection in the RUQ is consistent with Nu-knit which was placed in the RUQ during surgery to achieve hemostasis. The material is an absorbable material which will break down over time. There is no evidence of post-operative abscess" HIDA scan is negative for a leak No surgical intervention indicated at this time Consider re-consulting surgery (2) ANTOINETTE (acute kidney injury) Current Visit: Yes Status: Acute Assessment and plan: Likely related to infection in combination with HCAP treatment with Levofloxacin , Zosyn and Vanco , possibly contrast-induced nephropathy Improving but not at baseline yet, creatinine increased up to 2.51, today is 1.8 but her baseline is 0.6 08/11/16 decline in renal function. Lasix and Vancomycin were stopped Increased fluid restriction up to 1500 mL per day Lasix is still being held Renal USS 08/12 showed fatty liver and acute interstitial nephritis vs glomerulonephritis Will also hold Omeprazole urine eosinophils not found. nephrology consulted (3) Acute on chronic diastolic heart failure Current Visit: Yes Status: Acute Assessment and plan: ECHO was WNL Hold lasix due to ANTOINETTE Monitor closely Continue other meds (4) Diabetes mellitus, type II, insulin dependent Current Visit: Yes Status: Chronic (5) HTN (hypertension) Current Visit: Yes Status: Chronic (6) Paroxysmal atrial fibrillation Current Visit: Yes Status: Chronic Assessment and plan: Continue metoprolol and aspirin Was noncompliant with Xarelto - Time Spent With Patient Greater than 35 minutes - Subjective Interval history: Complaining of less abdominal pain Feeling better, less short of breath, has a productive cough, no fevers, diarrhea or dysuria. No chest pain. - Constitutional Vitals: Temp Pulse Resp BP Pulse Ox 97.6 F 61 20 130/65 98 08/18/16 11:35 08/18/16 11:35 08/18/16 11:49 08/18/16 11:35 08/18/16 11:49 General appearance: Present: A&O X 3, morbidly obese, pleasant, no acute distress - Head Head exam: Present: atraumatic, normocephalic - Eye Eye exam: Present: PERRL, conjuntiva pink, sclera anicteric Pupils: Present: PERRL - Neck Neck exam general surgery: Present: supple, trachea midline. Absent: lymphadenopathy - Respiratory Respiratory exam: Present: CTAB, rales (Signed by vascular crackles). Absent: accessory muscle use, rhonchi, wheezes - Cardiovascular Cardiovascular exam: Present: RRR, +S1, +S2. Absent: diastolic murmur, gallop, rubs, systolic murmur - GI/Abdominal GI/Abdominal exam: Present: normal bowel sounds, soft, no peritoneal signs. Absent: distended, tenderness - Extremities Exam Extremities exam: Present: warm, radial pulses palpable and symetrical. Absent : calf tenderness, cyanotic, pedal edema - Neurological Exam Neurological exam: Present: CN II-XII intact, oriented X3, no focal deficits. Absent: pronater drift, facial droop, speech deficit - Skin Skin exam: Present: dry, intact Internal Medicine: Result - Labs CBC & Chem 7: 08/17/16 04:45 08/18/16 04:50 Labs: BMP 08/18/16 04:50 Sodium 138 Potassium 4.0 Chloride 104 Carbon Dioxide 21 BUN 46 H Creatinine 1.80 H Glucose 285 H Calcium 9.6 - ABG Interpretation ABG results: ABG ABG pH 7.48 pH Units (7.32-7.45) H 08/14/16 16:30 ABG pCO2 37 mmHg (35-45) 08/14/16 16:30 ABG pO2 217 mmHg (85-104) H 08/14/16 16:30 ABG O2 Saturation 100 % (95-98) H 08/14/16 16:30 PT/INR, D-dimer PT 12.7 Seconds (9.4-12.1) H 08/10/16 06:16 Consult Discharge Plan - Plan Additional Instructions: #1 may shower, no tub bath for 2 weeks #2 wash incisions with soap and water and pat dry daily #3 no lifting, pushing, pulling more than 15 pounds for the next 2 weeks #4 no driving until off narcotics for 24 hours and able to safely react in the car #5 may climb stairs Referrals: Margoth Merrill CNP [Advanced Practice Nurse] - 08/20/16 8:45 am (surgery follow-up) Joanne Paez MD [Primary Care Provider] - 08/24/16 10:45 am ( )
[2016-08-18] MEDS: clonazePAM 0.5 MG TABLET PO SCH (21:35)
[2016-08-19] MEDS: traZODone 50 MG TABLET PO PRN (00:15)
[2016-08-19] MEDS: ALPRAZolam 0.25 MG TABLET PO PRN ×2 (00:15→09:19)
[2016-08-19] MEDS: MetroNIDAZOLE 500 MG/100 ML 500 MG/100 ML BAG IVPB SCH ×2 (00:15→09:00)
[2016-08-19] MEDS: Ipratropium/Albuterol Neb 3 ML IH SCH ×3 (04:43→16:12)
[2016-08-19] MEDS: *HR* Enoxaparin 30 MG/0.3 ML SYRINGE SQ SCH (04:50)
[2016-08-19] MEDS: *HR* OxyCODONE/APAP 10/325 TABLET PO PRN (04:51)
[2016-08-19 05:39] LABS: Calcium 9.4 mg/dL (8.6-10.8); Potassium 4.2 mEq/L (3.5-4.5)
[2016-08-19] MEDS: Insulin DETEMIR 100 UNIT/ML X5UNITS SQ SCH (09:00)
[2016-08-19] MEDS: Insulin LISPRO 300 UNITS/3 ML VIAL SQ SCH ×4 (09:00→12:30)
[2016-08-19] MEDS: *HR* OxyCODONE/APAP 5/325 TABLET PO PRN (09:15)
[2016-08-19] MEDS: Magic Mouthwash 10 ML UD Cup PO SCH ×2 (09:17→13:09)
[2016-08-19] MEDS: predniSONE 20 MG TABLET PO SCH (09:19)
[2016-08-19] MEDS: Aspirin Enteric Coated 81 MG Tablet PO SCH (09:19)
[2016-08-19] MEDS: Pregabalin 50 MG CAPSULE PO SCH (09:19)
[2016-08-19 11:19] VITALS: BP 126/76
--- NOTE | 2016-08-19 12:37 | Nephrology Progress Note ---
Date of Encounter: 08/19/16 Time of Encounter: 09:45 - Assessment and Plan (1) ANTOINETTE (acute kidney injury) Status: Acute Quickly improving SCr and she is non-oliguric. Doing well from my perspective. Follow up with me in about 4-6 weeks She had a non-oliguric ANTOINETTE, improving. Likely multifactorial in etiology I reviewed the renal U/S: large kidneys are most commonly seen in diabetics, and since the UA on admission was bland (without pyuria or hematuria) so I do not suspect acute interstial nephritis (the U Eos were also negative). She did have glucosuria, which is consistent with hyperglycemia (i.e. diabetic nephropathy). Follow a renal protective strategy: dose Rx by GFR and avoid nephrotoxins. Thank you (2) Diabetes mellitus, type II, insulin dependent Status: Chronic As per primary. (3) HTN (hypertension) Status: Chronic Improving. Qualifiers: Hypertension type: essential hypertension Qualified Code(s): I10 - Essential (primary) hypertension Subjective Principal diagnosis: ANTOINETTE Interval history: Pt was s/e earlier today. She did not affirm N/V/D and reported feeling better. Her was at bedside. Objective - Vital Signs Vital signs: Vital Signs Temp Pulse Resp BP Pulse Ox 08/19/16 11:14 97.8 F 62 20 126/76 96 08/19/16 08:05 97.4 F L 61 18 133/73 100 08/19/16 07:17 97.4 F L 61 18 133/73 100 08/19/16 05:19 97.8 F 60 18 137/68 99 08/19/16 04:43 16 100 08/19/16 01:05 99.0 F 55 16 134/69 95 08/18/16 22:07 20 100 08/18/16 20:52 99.0 F 74 22 142/72 96 08/18/16 16:27 20 98 08/18/16 16:14 97.6 F 78 18 137/72 98 08/18/16 16:00 97.6 F 78 20 137/72 98 Intake and Output 08/18/16 08/19/16 08/19/16 23:59 07:59 15:59 Intake Total 770 / 770 100 / 100 400 / 400 Output Total 1100 / 1100 700 / 700 Balance -330 / -330 -600 / -600 400 / 400 Intake: IV Fluids 100 / 100 100 / 100 100 / 100 Flagyl 500 MG/100 ML 500 100 / 100 100 / 100 100 / 100 mg In 100 ml @ 100 mls/hr IVPB Q8HR [facility] Rx#: [id number] Oral 670 / 670 300 / 300 Output: Urine 1100 / 1100 700 / 700 Other: Meal Dinner Breakfast Percent of Meal Consumed 100% 100% Stool Size Small Stool Consistency soft formed Stool Characteristics Normal for Patient Stool Color Brown Weight 92.5 kg Blood Glucose* 354 84 129 Patient Weight 08/19/16 23:59 Weight 92.5 kg - General Appearance Exam: General: Patient is alert and in no acute distress HEENT: Normocephalic atraumatic, pupils are equal round and reactive to light and accommodation, tympanic membrane is intact, nares is patent, mucous membranes moist, throat is not injected, no JVD, trachea is midline Cardiovascular: Regular rate and rhythm without murmur Respiratory: Lungs are clear to auscultation bilaterally, no wheezing, rhonchi, rales Abdomen: Soft, nontender, obese, positive bowel sounds in all 4 quadrants Extremities: Warm, dry, no edema Neuro: A&Ox3, speech is appropriate, cranial nerves II through XII are normal as tested - Lab 08/17/16 04:45 08/19/16 04:48 Most recent lab results ABG pH 7.48 pH Units (7.32-7.45) H 08/14/16 16:30 ABG pCO2 37 mmHg (35-45) 08/14/16 16:30 ABG pO2 217 mmHg (85-104) H 08/14/16 16:30 ABG HCO3 27.6 mEQ/L (21-27) H 08/14/16 16:30 ABG O2 Saturation 100 % (95-98) H 08/14/16 16:30 Calcium 9.4 mg/dL (8.6-10.8) 08/19/16 04:48 Magnesium 1.6 mg/dL (1.6-2.6) 08/10/16 06:16 Urine Creatinine 24 mg/dL 08/13/16 14:47 Urine Sodium 46.0 mEq/L 08/13/16 14:47 Consult Discharge Plan - Plan Instructions: Ciprofloxacin (By mouth), Metoprolol (By mouth), Oxycodone/ Acetaminophen (By mouth), Clonazepam (By mouth), Prednisone (By mouth), Metronidazole (By mouth), Insulin Glargine (Injection), Diabetes Mellitus Type 2 in Adults (DC), Pneumonia (DC) Additional Instructions: Follow-up with primary care physician within the next 7 days. Follow up with nephrology within the next 4-6 weeks/Dr. Ramos. Complete 3 more days of ciprofloxacin and Flagyl. Did not take alcoholic beverages well-being and Flagyl. Complete prednisone taper. Relative rest for 7 days/off work. Discussed options of anticoagulation with primary care physician as well as cardiology as outpatient #1 may shower, no tub bath for 2 weeks #2 wash incisions with soap and water and pat dry daily #3 no lifting, pushing, pulling more than 15 pounds for the next 2 weeks #4 no driving until off narcotics for 24 hours and able to safely react in the car #5 may climb stairs Referrals: Margoth Merrill CNP [Advanced Practice Nurse] - 08/20/16 8:45 am (surgery follow-up) Joanne Paez MD [Primary Care Provider] - 08/24/16 10:45 am ( ) Prescriptions: OxyCODONE/APAP 5/325 [Percocet 5/325 MG] 1 each PO Q6HR PRN #30 tablet PRN Reason: Pain Ciprofloxacin [Cipro] 500 mg PO BID #6 tablet ClonazePAM [Klonopin] 0.5 mg PO HS #30 tablet Insulin Glargine,Hum.rec.anlog [Lantus Solostar] 50 unit SQ BID 30 Days Metoprolol [Lopressor] 25 mg PO BID 30 Days MetroNIDAZOLE [Flagyl] 500 mg PO BID #6 tablet PredniSONE 10 mg PO DAILY 12 Days
[2016-08-19] MEDS: Cefepime HCl 2,000 MG in D5% in Water (Mini-Bag+) 100 ML IVPB SCH (13:00)
--- NOTE | 2016-08-19 14:37 | Discharge Summary ---
Date of Encounter: 08/19/16 Time of Encounter: 14:34 - Discharge Diagnosis (1) Healthcare associated bacterial pneumonia Priority: Primary Status: Acute Comments: Acute hypoxic respiratory failure secondary to acute COPD exacerbation from Healthcare associated pneumonia/possible gram-negative pneumonia present upon admission, consider possible intraabdominal collection (increased epigastric tenderness) (2) ANTOINETTE (acute kidney injury) Priority: Primary Status: Acute Comments: Likely related to infection in combination with HCAP treatment with Levofloxacin , Zosyn and Vanco , possibly contrast-induced nephropathy (3) Acute on chronic diastolic heart failure Priority: Secondary Status: Acute (4) Diabetes mellitus, type II, insulin dependent Priority: Secondary Status: Chronic (5) HTN (hypertension) Priority: Secondary Status: Chronic Qualifiers: Hypertension type: essential hypertension Qualified Code(s): I10 - Essential (primary) hypertension (6) Paroxysmal atrial fibrillation Priority: Secondary Status: Chronic - Discharge Medications Prescriptions: OxyCODONE/APAP 5/325 [Percocet 5/325 MG] 1 each PO Q6HR PRN #30 tablet PRN Reason: Pain Ciprofloxacin [Cipro] 500 mg PO BID #6 tablet ClonazePAM [Klonopin] 0.5 mg PO HS #30 tablet Insulin Glargine,Hum.rec.anlog [Lantus Solostar] 50 unit SQ BID 30 Days Metoprolol [Lopressor] 25 mg PO BID 30 Days MetroNIDAZOLE [Flagyl] 500 mg PO BID #6 tablet PredniSONE 10 mg PO DAILY 12 Days Home Medications: Albuterol Sulfate [Proair Respiclick] 2 puff IH Q4H PRN 10/26/15 [History] Aspirin [Adult Low Dose Aspirin EC] 81 mg PO DAILY 10/26/15 [History] Etonogestrel [Nexplanon] 68 mg SQ AD 10/26/15 [History] Insulin ASPART [Novolog Flexpen] 2 - 10 unit SQ TID 10/26/15 [History] Lisinopril [Zestril] 5 mg PO DAILY 10/26/15 [History] Metformin [Glucophage] 1,000 mg PO BIDWM 10/26/15 [History] Omeprazole [PriLOSEC] 40 mg PO DAILY 10/26/15 [History] Pregabalin [Lyrica] 100 mg PO BID 10/26/15 [History] Sertraline [Zoloft] 150 mg PO DAILY 10/26/15 [History] Trazodone HCl 50 - 100 mg PO HS PRN 10/26/15 [History] Atorvastatin Calcium [Lipitor] 20 mg PO DAILY #0 04/17/16 [Rx] Ibuprofen [Motrin] 600 mg PO Q6-8H PRN #30 tab 05/21/16 [Rx] Docusate Sodium [Colace] 100 mg PO DAILY PRN 30 Days 08/06/16 [Rx] Ciprofloxacin [Cipro] 500 mg PO BID #6 tablet 08/19/16 [Rx] ClonazePAM [Klonopin] 0.5 mg PO HS #30 tablet 08/19/16 [Rx] Insulin Glargine,Hum.rec.anlog [Lantus Solostar] 50 unit SQ BID 30 Days [Rx] Metoprolol [Lopressor] 25 mg PO BID 30 Days 08/19/16 [Rx] MetroNIDAZOLE [Flagyl] 500 mg PO BID #6 tablet 08/19/16 [Rx] OxyCODONE/APAP 5/325 [Percocet 5/325 MG] 1 each PO Q6HR PRN #30 tablet 08/19/16 [Rx] PredniSONE 10 mg PO DAILY 12 Days 08/19/16 [Rx] Allergies/Adverse Reactions: Allergies No Known Allergies Allergy (Verified 08/09/16 09:38) Date of admission: 08/09/16 11:14 Primary care physician: Joanne Paez Consults: 08/09/16 11:24 Consult to Nurse Navigator [CONS] Routine Comment: 08/12/16 16:19 Consult to Nephrology [CONS] Routine Consulting Provider: [facility] Peggy AMADO/RASHIDA Reason for Consult: AIN Call Completed: No 08/14/16 18:32 Consult to Invasive Line Access Team [CONS] Routine Reason for Consult: powerglide insertion Line Type: EPIV - Patient Status Disposition: Home, Self-Care Condition: Good Overall status at discharge: patient is progressing back to baseline - Discharge Instructions Follow Up With: Margoth Merrill CNP [Advanced Practice Nurse] - 08/20/16 8:45 am (surgery follow-up) Joanne Paez MD [Primary Care Provider] - 08/24/16 10:45 am ( ) Additional Instructions: Follow-up with primary care physician within the next 7 days. Follow up with nephrology within the next 4-6 weeks/Dr. Ramos. Complete 3 more days of ciprofloxacin and Flagyl. Did not take alcoholic beverages well-being and Flagyl. Complete prednisone taper. Relative rest for 7 days/off work. Discussed options of anticoagulation with primary care physician as well as cardiology as outpatient #1 may shower, no tub bath for 2 weeks #2 wash incisions with soap and water and pat dry daily #3 no lifting, pushing, pulling more than 15 pounds for the next 2 weeks #4 no driving until off narcotics for 24 hours and able to safely react in the car #5 may climb stairs - Diet and Activity Activity: increase activity as tolerated Diet: diabetic diet Hospital course: Ms. Jacome is a 50 year old female with past medical history significant for COPD , possible diastolic CHF and recent cholecystectomy who presented to the hospital complaining of shortness of breath. She was discharged home the day before admission. She reported right upper quadrant abdominal pain which this morning became severe, sharp, graded as 9/10, associated with nausea, no vomiting, patient had a regular bowel movement today, subjective fevers without measured temperature of 100.1. The pain did not improve with use of Percocet. In the emergency department she was noted to be hypoxic with an oxygen saturation of 82% on room air. This came up to 94% on supplemental oxygen. A CT of the abdomen and pelvis revealed findings concerning for a cholecystic fossa abscess as well as possible pneumonia. . On the CT scan her chest appeared compromised bilaterally with diffuse groundglass opacities affecting most of the lung tissue. She desaturated down to the 80s and had to be on 8 L of oxygen/high flow nasal cannula. Discontinued Levaquin at day 7 Received cefepime day 6, and flagyl IV day 5 Prednisone was started on 08/16/2016 as the patient was requiring 8 L of oxygen , now not requiring O2 Vancomycin and Zosyn were discontinued due to acute renal failure Echocardiogram: August 09 showed an ejection fraction of 55% and normal diastolic function. CT of the abdomen from 08/16/2016 shows smaller fluid collection in the gallbladder. That has decreased in size measuring now 4.4 cm x 3.5 cm. Gas collection has resolved suggesting improvement in postoperative either hematoma , abscess or seroma. New nodular soft tissue densities along the peritoneum in the pelvis, suggesting retained spilled gallstones? CT of the chest and abdomen on 08/09/16 showed no pulmonary emboli and showed peribronchial vascular groundglass and consolidative opacities in both lungs, bilateral pleural effusions . The report read new changes of cholecystectomy with gas and fluid within the gallbladder fossa representing possible developing abscess (unlikely) with trace free fluid in the abdomen and pelvis. Per Dr. Brannon: "the collection in the RUQ is consistent with Nu-knit which was placed in the RUQ during surgery to achieve hemostasis. The material is an absorbable material which will break down over time. There is no evidence of post-operative abscess" HIDA scan is negative for a leak No surgical intervention was indicated On 08/11/16 had a decline in renal function. Lasix and Vancomycin were stopped Renal function worsened and creatinine increased up to 2.51, today is 1.3 and keeps improving Increased fluid restriction up to 1500 mL per day Lasix was held Renal USS 08/12 showed fatty liver and acute interstitial nephritis vs glomerulonephritis Will also hold Omeprazole urine eosinophils not found. nephrology consulted ECHO was WNL Continue metoprolol and aspirin Was noncompliant with Xarelto as outpatient, would not start anticoagulation right away due to recent surgical procedure Follow with Dr. Ramos within the next 4-6 weeks - Time Spent with Patient Total time spent providing and/or coordinating discharge services: Greater than 30 minutes - Constitutional Vitals: Temp Pulse Resp BP Pulse Ox 97.8 F 62 20 126/76 96 08/19/16 11:14 08/19/16 11:14 08/19/16 11:14 08/19/16 11:14 08/19/16 11:14 General appearance: Present: A&O X 3, morbidly obese, pleasant, no acute distress - Head Head exam: Present: atraumatic, normocephalic - Eye Eye exam: Present: PERRL, conjuntiva pink, sclera anicteric Pupils: Present: PERRL - Neck Neck exam general surgery: Present: supple, trachea midline. Absent: lymphadenopathy - Respiratory Respiratory exam: Present: decreased breath sounds, CTAB, rales (Minimal bibasilar crackles). Absent: accessory muscle use, rhonchi, wheezes - Cardiovascular Cardiovascular exam: Present: RRR, +S1, +S2. Absent: diastolic murmur, gallop, rubs, systolic murmur - GI/Abdominal GI/Abdominal exam: Present: normal bowel sounds, soft, tenderness (Mild right upper quadrant tenderness), no peritoneal signs. Absent: distended - Extremities Exam Extremities exam: Present: warm, radial pulses palpable and symetrical. Absent : calf tenderness, cyanotic, pedal edema - Neurological Exam Neurological exam: Present: CN II-XII intact, oriented X3, no focal deficits. Absent: pronater drift, facial droop, speech deficit - Skin Skin exam: Present: dry, intact
== END 2016-08-19 16:35 | disposition home or self-care (01) | DRG 140 ==
LOC: 2ANU 01:34 → EMEROO 01:34 → 2ANU 07:11 → SUATTDRO 11:14 → 2NNU 08-14 18:55
PROVIDERS: ADMIT Family Medicine; ATTEND Internal Medicine

== ENCOUNTER 2016-09-07 13:33 | Observation (INO) ==
[2016-09-07] MEDS ORDERED: *HR* FentaNYL (PF) 100 MCG/2 ML VIAL IVP ONE (15:31)
[2016-09-07] MEDS ORDERED: 0.9 % Sodium Chloride 1,000 ML IVC SCH (15:45)
[2016-09-07 16:03] LABS: Basophils % 0.4 %; Eosinophils # 0.2 K/mcL (0.0-0.6); Eosinophils % 3.2 %; Hematocrit 29.8 % (35.3-44.9); Hemoglobin 9.6 g/dL (11.5-15.4); Immature Granulocytes % 0.4 % (0-4); Lymphocytes # 1.2 K/mcL (0.6-4.6); Lymphocytes % 22.2 %; Mean Corpuscular HGB Conc 32.2 g/dL (31.6-35.5); Mean Corpuscular Hemoglobin 24.6 pg (28.0-33.3); Mean Corpuscular Volume 76.4 fL (83.0-100.0); Monocytes # 0.2 K/mcL (0.0-1.3); Monocytes % 4.3 %; Neutrophils # 3.9 K/mcL (1.6-8.9); Platelet Count 169 K/mcL (140-400); Red Cell Distribution Width 16.9 % (11.5-14.5); Segmented Neutrophils % 69.5 %
[2016-09-07 16:14] LABS: Bilirubin,Urine Negative (Negative); Blood,Urine Negative (Negative); Clarity,Urine Cloudy (Clear); Color,Urine Yellow (Yellow); Glucose,Urine (UA) 100 mg/dL (Normal); Ketones,Urine Negative (Negative); Leukocyte Esterase,Urine Negative (Negative); Nitrite,Urine Negative (Negative); Protein,Urine Negative (Neg-Trace); Specific Gravity,Urine 1.018 (1.010-1.025); Urobilinogen,Urine Normal (Normal)
[2016-09-07 16:19] LABS: Bacteria,Urine None Seen per hpf (None-Few); Hyaline Casts,Urine None Seen per lpf (None-Few); RBC,Urine 0-3 per hpf (0-3); Squamous Epithelial Cell,Urine Many per lpf (None-Few); WBC,Urine 0-3 per hpf (0-3)
[2016-09-07 16:19] LABS: Alanine Aminotransferase 18 Units/L (0-55); Albumin 3.5 g/dL (3.5-5.0); Albumin/Globulin Ratio 1.3 (1.1-2.2); Alkaline Phosphatase 77 Units/L (38-126); Amylase 22 Units/L (25-125); Aspartate Amino Transferase 18 Units/L (5-34); BUN/Creatinine Ratio 12 (6-26); Bilirubin,Direct 0.2 mg/dL (0.0-0.5); Bilirubin,Indirect 0.5 mg/dL (0.0-1.2); Bilirubin,Total 0.7 mg/dL (0.2-1.2); Blood Urea Nitrogen 9 mg/dL (7-20); Calcium 8.5 mg/dL (8.6-10.8); Carbon Dioxide 20 mEq/L (19-29); Chloride 109 mEq/L (98-109); Globulin 2.7 g/dL (2.4-3.5); Glucose 174 mg/dL (70-99); Lipase 18 Units/L (8-78); Osmolality,Calculated 291 (280-300); Sodium 139 mEq/L (136-145); Total Protein 6.2 g/dL (6.0-8.3); eGFR For African Americans > 60 (> 60); eGFR For Non-African Americans > 60 (> 60)
[2016-09-07] MEDS ORDERED: Naloxone 0.4 MG/ML INJ IVP PRN (20:01)
[2016-09-07] MEDS ORDERED: Potassium Chloride 40 MEQ, Lidocaine 1% 2 ML in D5% in Water 500 ML IVPB ONE (20:06)
[2016-09-07] MEDS ORDERED: Dextrose Gel 15 GM PO PRN ×2 (20:09)
[2016-09-07] MEDS ORDERED: D5% in Water 1,000 ML IV PRN (20:09)
[2016-09-07] MEDS ORDERED: *HR* Dextrose 50 % in Water (Syg) 50 ML SYRINGE IVP PRN (20:09)
[2016-09-07] MEDS: *HR* Morphine 2 MG/ML SYRINGE IVP PRN (21:03)
[2016-09-07] MEDS: Pregabalin 50 MG CAPSULE PO SCH (21:03)
[2016-09-07] MEDS: clonazePAM 0.5 MG TABLET PO SCH (21:03)
[2016-09-07] MEDS: Ondansetron 4 MG/2 ML VIAL IVP PRN (21:03)
--- NOTE | 2016-09-07 23:30 | Emergency Department Note ---
Disposition Clinical Impression: Abdominal pain Qualifiers: Abdominal location: unspecified location Qualified Code(s): R10.9 - Unspecified abdominal pain Disposition: Admitted As Inpatient Condition: Good General Adult HPI - General Chief complaint: ED Abdominal Pain Stated complaint: abd pain Source: patient Limitations: no limitations Nursing Notes Reviewed: Yes Vital Signs Reviewed: Yes - History of Present Illness HPI Narrative: 50-year-old female who presents with concern for right upper quadrant pain this is her second visit to the emergency department. She had a cholecystectomy done by Dr. Brannon in general surgery approximately one month ago. After discussing the case with Dr. Brannon apparently she had a fairly complicated gallbladder. She had removal without any complications but now is having pain. CT scan of her abdomen and pelvis performed approximately one week ago shows a fluid collection in the gallbladder fossa. She is complaining of exquisite tenderness in the right upper quadrant. She has had no vomiting or nausea. She looks well-hydrated on arrival. She has no fever or chills. She complains of isolated abdominal pain. Pain Scale: 1 - Related Data Home Medications Medication Instructions Recorded Confirmed Albuterol Sulfate [Proair 2 puff IH Q4H PRN 10/26/15 09/07/16 Respiclick] Aspirin [Adult Low Dose Aspirin EC] 81 mg PO DAILY 10/26/15 09/07/16 Etonogestrel [Nexplanon] 68 mg SQ AD 10/26/15 09/07/16 Insulin ASPART [Novolog Flexpen] 2 - 10 unit SQ TID 10/26/15 09/07/16 Lisinopril [Zestril] 5 mg PO DAILY 10/26/15 09/07/16 Metformin [Glucophage] 1,000 mg PO BIDWM 10/26/15 09/07/16 Omeprazole [PriLOSEC] 40 mg PO DAILY 10/26/15 09/07/16 Pregabalin [Lyrica] 100 mg PO BID 10/26/15 09/07/16 Sertraline [Zoloft] 150 mg PO DAILY 10/26/15 09/07/16 Trazodone HCl 50 - 100 mg PO HS PRN 10/26/15 09/07/16 Previous Rx's Medication Instructions Recorded Atorvastatin Calcium [Lipitor] 20 mg PO DAILY #0 04/17/16 Ibuprofen [Motrin] 600 mg PO Q6-8H PRN #30 tab 05/21/16 Docusate Sodium [Colace] 100 mg PO DAILY PRN 30 Days 08/06/16 ClonazePAM [Klonopin] 0.5 mg PO HS #30 tablet 08/19/16 Insulin Glargine,Hum.rec.anlog 50 unit SQ BID 30 Days 08/19/16 [Lantus Solostar] Metoprolol [Lopressor] 25 mg PO BID 30 Days 08/19/16 OxyCODONE/APAP 5/325 [Percocet 1 each PO Q6HR PRN #30 tablet 08/19/16 5/325 MG] Dicyclomine [Bentyl] 10 mg PO QID PRN #20 capsule 08/29/16 Allergies Allergy/AdvReac Type Severity Reaction Status Date / Time No Known Allergies Allergy Verified 09/07/16 13:36 All systems ED: reviewed and negative except as stated. Past Medical History - Past Medical History Medical history: Reports: atrial fibrillation, COPD, CVA, diabetes, hyperlipidemia, hypertension, myocardial infarction Surgical history: Reports: , cholecystectomy Psychiatric history: Reports: anxiety, depression VISITOR SERVICES COORDINATOR history: Reports: no VISITOR SERVICES COORDINATOR history - Social History Smoking Status: Never smoker Smokeless Tobacco Status: No Alcohol use: Reports: none Drug use: Reports: none Physical Exam Tenderness in the right upper quadrant with guarding - General Limitations: no limitations General appearance: alert, in no apparent distress - Head Head exam: atraumatic - Eye Eye exam: Present: normal appearance - ENT ENT exam: normal exam - Neck Neck exam: Present: normal inspection - Chest Chest inspection: Present: normal inspection - Respiratory Respiratory exam: Present: normal lung sounds bilaterally - Cardiovascular Cardiovascular exam: Present: regular rate, normal rhythm - Extremities Exam Extremities exam: Present: normal inspection - Expanded Lower Extremity Exam Hip/Pelvis exam: Present: normal inspection Upper leg exam: Present: normal inspection Knee exam: Present: normal inspection (CT) Lower leg exam: Present: normal inspection Ankle exam: Present: normal inspection (The) Foot/toe exam: Present: normal inspection Neurovascular/Tendon exam: Present: normal capillary refill Gait: observed and normal - Back Exam Back exam: Present: normal inspection - Neurological Exam Neurological exam: Present: alert, oriented X3, CN II-XII intact - Psychiatric Psychiatric exam: Present: normal affect, normal mood - Skin Skin exam: Present: warm, dry Course Vital Signs Temperature 98.0 F 09/07/16 13:36 Pulse Rate 74 09/07/16 13:36 Respiratory Rate 18 09/07/16 13:36 Blood Pressure 144/84 09/07/16 13:36 O2 Sat by Pulse Oximetry 97 09/07/16 13:36 Temperature 98 F 09/08/16 00:05 Pulse Rate 68 09/08/16 00:05 Respiratory Rate 16 09/08/16 00:05 Blood Pressure 113/71 09/08/16 00:05 O2 Sat by Pulse Oximetry 96 09/08/16 00:05 Oxygen Delivery Oxygen Delivery Room Air Medical Decision Making - MDM Narrative Medical decision making narrative: Second visit to the emergency department. Concern for ongoing fluid collection. Discussed case with Dr. Brannon who recommended admission for possible GI consultation. HIDA scan was ordered. Admitted to Dr. Mendoza and general surgery. - Lab Data Result diagrams: 09/07/16 15:46 09/07/16 15:46 Lab Results 09/07/16 09/07/16 09/07/16 Range/Units 15:35 15:46 15:46 WBC 5.6 (4.3-11.1) K/mcL RBC 3.90 (3.82-4.97) M/mcL Hgb 9.6 L (11.5-15.4) g/dL Hct 29.8 L (35.3-44.9) % MCV 76.4 L (83.0-100.0) fL MCH 24.6 L (28.0-33.3) pg MCHC 32.2 (31.6-35.5) g/dL RDW 16.9 H (11.5-14.5) % Plt Count 169 (140-400) K/mcL MPV 11.0 (9.4-12.4) fL Immature Gran % 0.4 (0-4) % Seg Neutrophils % 69.5 % Lymphocytes % 22.2 % Monocytes % 4.3 % Eosinophils % 3.2 % Basophils % 0.4 % Neutrophils # 3.9 (1.6-8.9) K/mcL Lymphocytes # 1.2 (0.6-4.6) K/mcL Monocytes # 0.2 (0.0-1.3) K/mcL Eosinophils # 0.2 (0.0-0.6) K/mcL Basophils # 0.0 (0.0-0.2) K/mcL Sodium 139 (136-145) mEq/L Potassium 3.0 L (3.5-4.5) mEq/L Chloride 109 (98-109) mEq/L Carbon Dioxide 20 (19-29) mEq/L BUN 9 (7-20) mg/dL Creatinine 0.76 (0.57-1.11) mg/dL Est GFR ( Amer) > 60 (> 60) Est GFR (Non-Af Amer) > 60 (> 60) BUN/Creatinine Ratio 12 (6-26) Glucose 174 H (70-99) mg/dL Calculated Osmolality 291 (280-300) Lactic Acid (0.5-2.2) mmol/L Calcium 8.5 L (8.6-10.8) mg/dL Total Bilirubin 0.7 (0.2-1.2) mg/dL Direct Bilirubin 0.2 (0.0-0.5) mg/dL Indirect Bilirubin 0.5 (0.0-1.2) mg/dL AST 18 (5-34) Units/L ALT 18 (0-55) Units/L Alkaline Phosphatase 77 (38-126) Units/L Serum Total Protein 6.2 (6.0-8.3) g/dL Albumin 3.5 (3.5-5.0) g/dL Globulin 2.7 (2.4-3.5) g/dL Albumin/Globulin Ratio 1.3 (1.1-2.2) Amylase 22 L (25-125) Units/L Lipase 18 (8-78) Units/L Urine Color Yellow (Yellow) Urine Clarity Cloudy A (Clear) Urine pH 7.0 (5.0-8.0) pH Units Ur Specific [place] 1.018 (1.010-1.025) Urine Protein Negative (Neg-Trace) mg/dL Urine Glucose (UA) 100 H (Normal) mg/dL Urine Ketones Negative (Negative) mg/dL Urine Blood Negative (Negative) Urine Nitrite Negative (Negative) Urine Bilirubin Negative (Negative) Urine Urobilinogen Normal (Normal) mg/dL Ur Leukocyte Esterase Negative (Negative) Urine Microscopic RBC 0-3 (0-3) per hpf Urine Microscopic WBC 0-3 (0-3) per hpf Ur Squamous Epith Cells Many H (None-Few) per lpf Urine Bacteria None Seen (None-Few) per hpf Hyaline Casts None Seen (None-Few) per lpf Ur Culture Indicated? NO (NO) 09/07/16 Range/Units 17:06 WBC (4.3-11.1) K/mcL RBC (3.82-4.97) M/mcL Hgb (11.5-15.4) g/dL Hct (35.3-44.9) % MCV (83.0-100.0) fL MCH (28.0-33.3) pg MCHC (31.6-35.5) g/dL RDW (11.5-14.5) % Plt Count (140-400) K/mcL MPV (9.4-12.4) fL Immature Gran % (0-4) % Seg Neutrophils % % Lymphocytes % % Monocytes % % Eosinophils % % Basophils % % Neutrophils # (1.6-8.9) K/mcL Lymphocytes # (0.6-4.6) K/mcL Monocytes # (0.0-1.3) K/mcL Eosinophils # (0.0-0.6) K/mcL Basophils # (0.0-0.2) K/mcL Sodium (136-145) mEq/L Potassium (3.5-4.5) mEq/L Chloride (98-109) mEq/L Carbon Dioxide (19-29) mEq/L BUN (7-20) mg/dL Creatinine (0.57-1.11) mg/dL Est GFR ( Amer) (> 60) Est GFR (Non-Af Amer) (> 60) BUN/Creatinine Ratio (6-26) Glucose (70-99) mg/dL Calculated Osmolality (280-300) Lactic Acid 0.9 (0.5-2.2) mmol/L Calcium (8.6-10.8) mg/dL Total Bilirubin (0.2-1.2) mg/dL Direct Bilirubin (0.0-0.5) mg/dL Indirect Bilirubin (0.0-1.2) mg/dL AST (5-34) Units/L ALT (0-55) Units/L Alkaline Phosphatase (38-126) Units/L Serum Total Protein (6.0-8.3) g/dL Albumin (3.5-5.0) g/dL Globulin (2.4-3.5) g/dL Albumin/Globulin Ratio (1.1-2.2) Amylase (25-125) Units/L Lipase (8-78) Units/L Urine Color (Yellow) Urine Clarity (Clear) Urine pH (5.0-8.0) pH Units Ur Specific [place] (1.010-1.025) Urine Protein (Neg-Trace) mg/dL Urine Glucose (UA) (Normal) mg/dL Urine Ketones (Negative) mg/dL Urine Blood (Negative) Urine Nitrite (Negative) Urine Bilirubin (Negative) Urine Urobilinogen (Normal) mg/dL Ur Leukocyte Esterase (Negative) Urine Microscopic RBC (0-3) per hpf Urine Microscopic WBC (0-3) per hpf Ur Squamous Epith Cells (None-Few) per lpf Urine Bacteria (None-Few) per hpf Hyaline Casts (None-Few) per lpf Ur Culture Indicated? (NO)
[2016-09-08] MEDS: Insulin LISPRO 300 UNITS/3 ML VIAL SQ SCH ×4 (00:24→16:28)
[2016-09-08] MEDS: *HR* Morphine 2 MG/ML SYRINGE IVP PRN ×6 (01:33→22:28)
[2016-09-08] MEDS: 0.9 % Sodium Chloride 1,000 ML IVC SCH ×4 (01:34→22:28)
[2016-09-08 05:29] LABS: BUN/Creatinine Ratio 10 (6-26); Blood Urea Nitrogen 7 mg/dL (7-20); Calcium 7.7 mg/dL (8.6-10.8); Carbon Dioxide 20 mEq/L (19-29); Chloride 111 mEq/L (98-109); Glucose 132 mg/dL (70-99); Osmolality,Calculated 290 (280-300); Potassium 3.9 mEq/L (3.5-4.5); Sodium 140 mEq/L (136-145); eGFR For African Americans > 60 (> 60); eGFR For Non-African Americans > 60 (> 60)
[2016-09-08] MEDS: Ondansetron 4 MG/2 ML VIAL IVP PRN ×2 (06:01→14:01)
[2016-09-08] MEDS: Pregabalin 50 MG CAPSULE PO SCH ×2 (07:22→20:51)
--- NOTE | 2016-09-08 08:41 | General Surg History&Physical ---
<Chuck Live - Last Filed: 09/08/16 08:55> Date of Encounter: 09/08/16 Time of Encounter: 07:30 Assessment and Plan (1) Abdominal pain Current Visit: Yes Status: Acute The assessment and plan as outlined above was discussed with the patient and/or family members who expressed understanding and agreement. All questions were answered. Status post laparoscopic cholecystectomy 08/05/[address] Brannon. HIDA scan demonstrates no leakage of bile. Gallbladder fossa fluid collection likely correlates with Nu-knit, which was placed in the RUQ during her surgery. No elevated white count or fevers. Advance to clear liquids at this time. Continue nausea and pain control. Continue home medications. Qualifiers: Abdominal location: right upper quadrant Qualified Code(s): R10.11 - Right upper quadrant pain (2) Depression Current Visit: No Status: Chronic The assessment and plan as outlined above was discussed with the patient and/or family members who expressed understanding and agreement. All questions were answered. Continue home medication of Sertraline. Qualifiers: Depression Type: unspecified Qualified Code(s): F32.9 - Major depressive disorder, single episode, unspecified (3) Anxiety Current Visit: No Status: Chronic The assessment and plan as outlined above was discussed with the patient and/or family members who expressed understanding and agreement. All questions were answered. Continue home medication (4) HTN (hypertension) Current Visit: No Status: Chronic The assessment and plan as outlined above was discussed with the patient and/or family members who expressed understanding and agreement. All questions were answered. Continue home medication Qualifiers: Hypertension type: essential hypertension Qualified Code(s): I10 - Essential (primary) hypertension (5) Hyperlipemia Current Visit: No Status: Chronic The assessment and plan as outlined above was discussed with the patient and/or family members who expressed understanding and agreement. All questions were answered. Continue home medication Qualifiers: Hyperlipidemia type: unspecified Qualified Code(s): E78.5 - Hyperlipidemia , unspecified (6) DVT prophylaxis Current Visit: No Status: Acute The assessment and plan as outlined above was discussed with the patient and/or family members who expressed understanding and agreement. All questions were answered. Ambulate TID with assist. History of Present Illness Chief complaint: Abdominal Pain HPI: Ms. Jacome is a 50 year old female with PMH of atrial fibrillation, COPD, CVA, diabetes, hypertension, and [place] who is status post laparoscopic cholecystectomy by Dr. Brannon who complains of RUQ pain. She has had two previous visits to the emergency department for right upper quadrant pain since having her gallbladder removed. The patient had a HIDA scan on her previous hospitalization on 08/10, which demonstrated no bile leak. Repeat HIDA scan on during her current hospitalization demonstrates no bile leak. She states that her pain she is having is similar to previous episodes. She denies vomiting , but states she does have nausea. Her nausea has improved since her arrival to the ED, but she reports her pain has not improved. The patient requests an increase in her pain medications. The patient does not have an elevated white count or fevers. She states she had a bowel movement yesterday and the last meal she was able to have was 2 days ago. Past Med Surg Social Fam HX - Past Medical History Medical history: atrial fibrillation, COPD, CVA, diabetes, hyperlipidemia, hypertension, myocardial infarction Psychiatric history: anxiety, depression - Past Surgical History Surgical History: , cholecystectomy - Social History Smoking Status: Never smoker Smokeless Tobacco Status: No Alcohol use: none Drug use: none - Family History Mother Living Status: Hx Family Cardiac Disorders: Yes Hx Family Respiratory Disorders: Yes (copd) Hx Family Cancer: Yes (lung cancer) Hx Family Endocrine Disorder: Yes (DM type II) Father Living Status: Hx Family Cardiac Disorders: Yes Hx Family Cancer: Yes (stomach cancer) Hx Family Endocrine Disorder: Yes (DM) Medications and Allergies Albuterol Sulfate [Proair Respiclick] 2 puff IH Q4H PRN 10/26/15 [History] Aspirin [Adult Low Dose Aspirin EC] 81 mg PO DAILY 10/26/15 [History] Etonogestrel [Nexplanon] 68 mg SQ AD 10/26/15 [History] Insulin ASPART [Novolog Flexpen] 2 - 10 unit SQ TID 10/26/15 [History] Lisinopril [Zestril] 5 mg PO DAILY 10/26/15 [History] Metformin [Glucophage] 1,000 mg PO BIDWM 10/26/15 [History] Omeprazole [PriLOSEC] 40 mg PO DAILY 10/26/15 [History] Pregabalin [Lyrica] 100 mg PO BID 10/26/15 [History] Sertraline [Zoloft] 150 mg PO DAILY 10/26/15 [History] Trazodone HCl 50 - 100 mg PO HS PRN 10/26/15 [History] Atorvastatin Calcium [Lipitor] 20 mg PO DAILY #0 04/17/16 [Rx] Ibuprofen [Motrin] 600 mg PO Q6-8H PRN #30 tab 05/21/16 [Rx] Docusate Sodium [Colace] 100 mg PO DAILY PRN 30 Days 08/06/16 [Rx] ClonazePAM [Klonopin] 0.5 mg PO HS #30 tablet 08/19/16 [Rx] Insulin Glargine,Hum.rec.anlog [Lantus Solostar] 50 unit SQ BID 30 Days [Rx] Metoprolol [Lopressor] 25 mg PO BID 30 Days 08/19/16 [Rx] OxyCODONE/APAP 5/325 [Percocet 5/325 MG] 1 each PO Q6HR PRN #30 tablet 08/19/16 [Rx] Dicyclomine [Bentyl] 10 mg PO QID PRN #20 capsule 08/29/16 [Rx] Allergies No Known Allergies Allergy (Verified 09/07/16 13:36) Review of Systems All systems PM: A 10-system review of systems was performed and is negative for pertinent findings except as documented above in the HPI. - Constitutional anorexia, no chills, no fever(s) - Cardiovascular no chest pain, no dyspnea - Respiratory no cough, no dyspnea - Gastrointestinal abdominal pain, nausea, no constipation, no diarrhea, no hematochezia, no melena , no vomiting - Neurological no loss of vision, no numbness, no paresthesias General Surgery Exam Initial Vital Signs Temp Pulse Resp BP Pulse Ox 98.0 F 74 18 144/84 97 09/07/16 13:36 09/07/16 13:36 09/07/16 13:36 09/07/16 13:36 09/07/16 13:36 - General physical appearance well developed, well nourished, no distress - Eyes normal ocular movement - ENT normal mucosa - Neck trachea midline - Respiratory normal respiratory effort, clear to auscultation - Cardiovascular Cardiovascular exam: Present: RRR - Abdomen Abdomen general surgery: Present: bowel sounds present, soft Abdominal Tenderness: Present: RUQ (Severe pain to moderate palpation) - Integumentary Integumentary general surgery: Present: warm and dry - Neurologic Present: CN 2-12 grossly intact - Musculoskeletal Present: normal posture - Psychiatric Psychiatric general surgery: Present: appropriate, oriented to person, oriented to place, oriented to time, speech is normal Results - Labs 09/07/16 15:46 09/08/16 04:59 Abnormal lab results Hgb 9.6 g/dL (11.5-15.4) L 09/07/16 15:46 Hct 29.8 % (35.3-44.9) L 09/07/16 15:46 MCV 76.4 fL (83.0-100.0) L 09/07/16 15:46 MCH 24.6 pg (28.0-33.3) L 09/07/16 15:46 RDW 16.9 % (11.5-14.5) H 09/07/16 15:46 Chloride 111 mEq/L (98-109) H 09/08/16 04:59 Glucose 132 mg/dL (70-99) H 09/08/16 04:59 POC Glucose 141 (58-89) H 09/08/16 05:52 Calcium 7.7 mg/dL (8.6-10.8) L 09/08/16 04:59 Amylase 22 Units/L (25-125) L 09/07/16 15:46 Urine Clarity Cloudy (Clear) A 09/07/16 15:35 Urine Glucose (UA) 100 mg/dL (Normal) H 09/07/16 15:35 Ur Squamous Epith Cells Many per lpf (None-Few) H 09/07/16 15:35 Diabetes panel 09/08/16 Range/Units 04:59 Sodium 140 (136-145) mEq/L Potassium 3.9 (3.5-4.5) mEq/L Chloride 111 H (98-109) mEq/L Carbon Dioxide 20 (19-29) mEq/L BUN 7 (7-20) mg/dL Creatinine 0.68 (0.57-1.11) mg/dL Glucose 132 H (70-99) mg/dL Calcium 7.7 L (8.6-10.8) mg/dL Calcium panel 09/08/16 Range/Units 04:59 Calcium 7.7 L (8.6-10.8) mg/dL Pituitary panel 09/08/16 Range/Units 04:59 Sodium 140 (136-145) mEq/L Potassium 3.9 (3.5-4.5) mEq/L Chloride 111 H (98-109) mEq/L Carbon Dioxide 20 (19-29) mEq/L BUN 7 (7-20) mg/dL Creatinine 0.68 (0.57-1.11) mg/dL Glucose 132 H (70-99) mg/dL Calcium 7.7 L (8.6-10.8) mg/dL Adrenal panel 09/08/16 Range/Units 04:59 Sodium 140 (136-145) mEq/L Potassium 3.9 (3.5-4.5) mEq/L Chloride 111 H (98-109) mEq/L Carbon Dioxide 20 (19-29) mEq/L BUN 7 (7-20) mg/dL Creatinine 0.68 (0.57-1.11) mg/dL Glucose 132 H (70-99) mg/dL Calcium 7.7 L (8.6-10.8) mg/dL All other labs normal. - Attending Attestation I examined this patient and my medical decision-making was reviewed with the CURRICULUM CONSULTANT/PA/Advanced Practice Nurse/Resident Physician. I agree with the documented findings, disposition and treatment plan as described except to the extent set forth below. <Anneliese Mendoza - Last Filed: 09/08/16 11:47> Date of Encounter: 09/08/16 Time of Encounter: 11:37 Assessment and Plan (1) Abdominal pain Current Visit: Yes Status: Acute discussed with patient that her CT appears normal, she has surgicel at gallbladder bed, no abscess, no bile leak. WBC and lfts normal, HIDA scan x2 show no bile leak. She has never had a colonoscopy. will plan EGD/ colonoscopy tomorrow for continued abdominal pain and nausea that hasnt resolved since surgery. Bowel prep today, liquid diet, npo at midnight The assessment and plan as outlined above was discussed with the patient and/or family members who expressed understanding and agreement. All questions were answered. Qualifiers: Abdominal location: right upper quadrant Qualified Code(s): R10.11 - Right upper quadrant pain (2) Diabetes mellitus Current Visit: No Status: Chronic SSI/MBS checks holding home meds as only on liquid diet The assessment and plan as outlined above was discussed with the patient and/or family members who expressed understanding and agreement. All questions were answered. Qualifiers: Diabetes mellitus type: type 2 Diabetes mellitus complication status: without complication Diabetes mellitus chcf insulin use: with terminal operations manager use Qualified Code(s): E11.9 - Type 2 diabetes mellitus without complications ; Z79.4 - [facility] (current) use of insulin (3) HTN (hypertension) Current Visit: No Status: Chronic normotensive, continue home meds The assessment and plan as outlined above was discussed with the patient and/or family members who expressed understanding and agreement. All questions were answered. Qualifiers: Hypertension type: essential hypertension Qualified Code(s): I10 - Essential (primary) hypertension (4) Paroxysmal atrial fibrillation Current Visit: No Status: Chronic rate controlled The assessment and plan as outlined above was discussed with the patient and/or family members who expressed understanding and agreement. All questions were answered. (5) Depression Current Visit: No Status: Chronic The assessment and plan as outlined above was discussed with the patient and/or family members who expressed understanding and agreement. All questions were answered. Qualifiers: Depression Type: unspecified Qualified Code(s): F32.9 - Major depressive disorder, single episode, unspecified History of Present Illness HPI: Ms. Jacome is a 50 year old female who states she had RUQ sharp pain, nausea and vomiting and diarrhea prior to her cholecystectomy. She states after her cholecystectomy the diarrhea resolved and she has a bm once daily now but she is still having the same RUQ pain and nausea. She will dry heave but no actual emesis. She states the pain is a stabbing pain without radiation. The pain never goes away. She denies symptoms of heartburn or reflux. Patient requests increase in pain medication but cannot stay awake during our conversation. She has never had an egd or colonoscopy Past Med Surg Social Fam HX - Past Medical History Source: patient Review of Systems All systems PM: A 10-system review of systems was performed and is negative for pertinent findings except as documented above in the HPI. General Surgery Exam Initial Vital Signs Temp Pulse Resp BP Pulse Ox 98.0 F 74 18 144/84 97 09/07/16 13:36 09/07/16 13:36 09/07/16 13:36 09/07/16 13:36 09/07/16 13:36 - General physical appearance well developed, well nourished, no distress, obese - Eyes PERRL, normal ocular movement - ENT normal mucosa, normocephalic - Neck trachea midline - Respiratory normal respiratory effort, clear to auscultation - Abdomen Abdomen general surgery: Present: bowel sounds present, soft, tender. Absent: guarding, rebound Abdominal Tenderness: Present: RUQ - Integumentary Integumentary general surgery: Present: warm and dry - Neurologic Present: CN 2-12 grossly intact, normal coordination - Musculoskeletal Present: normal gait, normal posture - Psychiatric Psychiatric general surgery: Present: A&Ox3, speech is normal Results - Labs 09/07/16 15:46 09/08/16 04:59 Short CBC 09/07/16 Range/Units 15:46 WBC 5.6 (4.3-11.1) K/mcL Hgb 9.6 L (11.5-15.4) g/dL Hct 29.8 L (35.3-44.9) % Plt Count 169 (140-400) K/mcL Neutrophils # 3.9 (1.6-8.9) K/mcL BMP 09/08/16 09/07/16 Range/Units 04:59 15:46 Sodium 140 139 (136-145) mEq/L Potassium 3.9 3.0 L (3.5-4.5) mEq/L Chloride 111 H 109 (98-109) mEq/L Carbon Dioxide 20 20 (19-29) mEq/L BUN 7 9 (7-20) mg/dL Creatinine 0.68 0.76 (0.57-1.11) mg/dL Glucose 132 H 174 H (70-99) mg/dL Calcium 7.7 L 8.5 L (8.6-10.8) mg/dL Liver Function 09/07/16 Range/Units 15:46 Total Bilirubin 0.7 (0.2-1.2) mg/dL Direct Bilirubin 0.2 (0.0-0.5) mg/dL AST 18 (5-34) Units/L ALT 18 (0-55) Units/L Alkaline Phosphatase 77 (38-126) Units/L Albumin 3.5 (3.5-5.0) g/dL Urine 09/07/16 Range/Units 15:35 Urine Color Yellow (Yellow) Urine Clarity Cloudy A (Clear) Urine pH 7.0 (5.0-8.0) pH Units Ur Specific Mitchell 1.018 (1.010-1.025) Urine Protein Negative (Neg-Trace) mg/dL Urine Glucose (UA) 100 H (Normal) mg/dL Vital Signs Temp Pulse Resp BP Pulse Ox 09/08/16 07:04 95 09/08/16 06:59 97.3 F L 100 17 101/97 97 09/08/16 03:52 97.8 F 57 16 115/66 95 09/08/16 00:05 98 F 68 16 113/71 96 09/07/16 20:51 98.5 F 69 14 149/82 96 09/07/16 19:00 14 108/54 09/07/16 13:36 98.0 F 74 18 144/84 97 Intake and Output 09/07/16 09/08/16 09/08/16 23:59 07:59 15:59 Intake Total 1000 / 1000 1089 / 1089 Output Total 0 / 0 200 / 200 Balance 1000 / 1000 889 / 889 Intake: IV Fluids 1000 / 1000 1089 / 1089 0.9 % Sodium Chloride 1, 1000 / 1000 567 / 567 000 ML @ 100 mls/hr IVC . Q10H [facility] Rx#:[id number] KCl 40 MEQ Xylocaine 2 ML 522 / 522 In Dextrose 5% 500 ML @ 130.5 mls/hr IVPB ONCE ONE Rx#:[id number] Oral 0 / 0 0 / 0 Output: Urine 0 / 0 200 / 200 Other: # Voids 1 1 Weight 89.811 kg 89.811 kg Blood Glucose* 141 Patient Weight 09/08/16 23:59 Weight 89.811 kg - Imaging CT scan - abdomen: report reviewed, image reviewed CT scan - pelvis: report reviewed, image reviewed
[2016-09-08] MEDS: *HR* Promethazine 25 MG/ML VIAL IVP PRN ×2 (10:00→18:01)
[2016-09-08] MEDS ORDERED: Polyethylene Glycol 3350 255 GM POWDER PO ONE (11:13)
[2016-09-08 13:30] LABS: INR 1.1; Prothrombin Time 11.7 Seconds (9.4-12.1)
[2016-09-08] MEDS: clonazePAM 0.5 MG TABLET PO SCH (20:51)
[2016-09-09] MEDS: Insulin LISPRO 300 UNITS/3 ML VIAL SQ SCH ×4 (00:29→16:57)
[2016-09-09] MEDS: *HR* Morphine 2 MG/ML SYRINGE IVP PRN ×2 (02:36→06:32)
[2016-09-09 05:23] LABS: BUN/Creatinine Ratio 8 (6-26); Blood Urea Nitrogen 6 mg/dL (7-20); Calcium 7.4 mg/dL (8.6-10.8); Carbon Dioxide 21 mEq/L (19-29); Chloride 111 mEq/L (98-109); Glucose 114 mg/dL (70-99); Osmolality,Calculated 284 (280-300); Potassium 3.5 mEq/L (3.5-4.5); Sodium 138 mEq/L (136-145); eGFR For African Americans > 60 (> 60); eGFR For Non-African Americans > 60 (> 60)
[2016-09-09] MEDS: Pregabalin 50 MG CAPSULE PO SCH ×2 (07:11→20:36)
--- NOTE | 2016-09-09 08:27 | General Surgery Progress Note ---
<Chuck Live - Last Filed: 09/09/16 08:24> Date of Encounter: 09/09/16 Time of Encounter: 07:50 - Assessment and Plan (1) Abdominal pain Current Visit: Yes Status: Acute Patient reported bowel movements still not clear this morning. Tap water enema. Continue with planned EGD and colonoscopy today. Qualifiers: Abdominal location: right upper quadrant Qualified Code(s): R10.11 - Right upper quadrant pain (2) Depression Current Visit: No Status: Chronic Continue home medications. Qualifiers: Depression Type: unspecified Qualified Code(s): F32.9 - Major depressive disorder, single episode, unspecified (3) Anxiety Current Visit: No Status: Chronic Continue home medications. (4) HTN (hypertension) Current Visit: No Status: Chronic Well controlled. Continue home medications. Qualifiers: Hypertension type: essential hypertension Qualified Code(s): I10 - Essential (primary) hypertension (5) Hyperlipemia Current Visit: No Status: Chronic Qualifiers: Hyperlipidemia type: unspecified Qualified Code(s): E78.5 - Hyperlipidemia , unspecified (6) Paroxysmal atrial fibrillation Current Visit: No Status: Chronic rate controlled. (7) DVT prophylaxis Current Visit: No Status: Acute Ambulate TID with assist (8) Diabetes mellitus Current Visit: No Status: Chronic SSI with accuchecks as the patient is NPO for scope today. Qualifiers: Diabetes mellitus type: type 2 Diabetes mellitus complication status: without complication Diabetes mellitus fci insulin use: with buttermaker continuous churn use Qualified Code(s): E11.9 - Type 2 diabetes mellitus without complications ; Z79.4 - [facility] (current) use of insulin Subjective Patient reports: no new complaints, still having pain, voiding w/o difficulty, bowel movement, nausea Narrative: I spoke with the patient and she states that her pain is still the same in the right upper quadrant. She reported that she was still not having clear bowel movements this morning after having her bowel prep last night. She states she continues to have nausea as well. I briefly spoke with the patient's nurse as well who stated that she did not inform the patient when her morphine was decreased from 4mg to 2mg. The patient continued to complain of the same pain from a 9 that decreases to a 7 after she receives her pain medication. Objective Vital Signs - Last 8 Hours Temp Pulse Resp BP Pulse Ox 09/09/16 06:47 98.4 F 70 16 100/47 95 09/09/16 04:35 98.1 F 64 17 125/72 93 L Intake and Output 09/08/16 09/09/16 09/09/16 23:59 07:59 15:59 Intake Total 1480 / 1480 773 / 773 Output Total 500 / 500 800 / 800 Balance 980 / 980 -27 / -27 Intake: IV Fluids 1000 / 1000 773 / 773 0.9 % Sodium Chloride 1, 1000 / 1000 773 / 773 000 ML @ 100 mls/hr IVC . Q10H [facility] Rx#:[id number] Oral 480 / 480 0 / 0 Output: Urine 500 / 500 800 / 800 Other: Meal Dinner Stool Size Moderate Small Stool Consistency liquid liquid Stool Color Brown Yellow Pale # Bowel Movements 1 Weight 89.8 kg Blood Glucose* 141 118 Patient Weight 09/09/16 23:59 Weight 89.8 kg - General physical appearance well developed, well nourished, no distress - Eyes normal ocular movement - ENT dry mucosa - Neck Neck exam: trachea midline - Respiratory normal respiratory effort, clear to auscultation - Cardiovascular Cardiovascular exam: Present: RRR - Abdomen Abdomen: Present: bowel sounds present, soft Abdominal Tenderness: RUQ - Neurologic CN 2-12 grossly intact - Musculoskeletal normal posture - Psychiatric oriented to time, oriented to person, oriented to place, speech is normal - Labs 09/07/16 15:46 09/09/16 04:56 Diabetes panel 09/09/16 Range/Units 04:56 Sodium 138 (136-145) mEq/L Potassium 3.5 (3.5-4.5) mEq/L Chloride 111 H (98-109) mEq/L Carbon Dioxide 21 (19-29) mEq/L BUN 6 L (7-20) mg/dL Creatinine 0.72 (0.57-1.11) mg/dL Glucose 114 H (70-99) mg/dL Calcium 7.4 L (8.6-10.8) mg/dL Calcium panel 09/09/16 Range/Units 04:56 Calcium 7.4 L (8.6-10.8) mg/dL Pituitary panel 09/09/16 Range/Units 04:56 Sodium 138 (136-145) mEq/L Potassium 3.5 (3.5-4.5) mEq/L Chloride 111 H (98-109) mEq/L Carbon Dioxide 21 (19-29) mEq/L BUN 6 L (7-20) mg/dL Creatinine 0.72 (0.57-1.11) mg/dL Glucose 114 H (70-99) mg/dL Calcium 7.4 L (8.6-10.8) mg/dL Adrenal panel 09/09/16 Range/Units 04:56 Sodium 138 (136-145) mEq/L Potassium 3.5 (3.5-4.5) mEq/L Chloride 111 H (98-109) mEq/L Carbon Dioxide 21 (19-29) mEq/L BUN 6 L (7-20) mg/dL Creatinine 0.72 (0.57-1.11) mg/dL Glucose 114 H (70-99) mg/dL Calcium 7.4 L (8.6-10.8) mg/dL Consult Discharge Plan - Plan Referrals: Joanne Paez MD [Primary Care Provider] - - Attending Attestation I examined this patient and my medical decision-making was reviewed with the ONLINE RETAILER/PA/Advanced Practice Nurse/Resident Physician. I agree with the documented findings, disposition and treatment plan as described except to the extent set forth below. <Anneliese Mendoza - Last Filed: 09/09/16 11:10> Time of Encounter: 11:05 - Assessment and Plan (1) Abdominal pain Current Visit: Yes Status: Acute pt had egd and colonoscopy today egd with full stomach gastritis, no ulcers or bleeding, duodenum normal no obvious esophagitis colonoscopy with 1 very small sigmoid polyp likely hyperplastic will start lidoderm patch to affected area start diabetic diet sliv dc morphine and continue percocet no NSAIDS h pylori pending if no improvement of symptoms will consult GI tomorrow Qualifiers: Abdominal location: right upper quadrant Qualified Code(s): R10.11 - Right upper quadrant pain (2) Diabetes mellitus Current Visit: No Status: Chronic start ADA diet, restart home meds, monitor MBS Qualifiers: Diabetes mellitus type: type 2 Diabetes mellitus complication status: without complication Diabetes mellitus fci insulin use: with fci use Qualified Code(s): E11.9 - Type 2 diabetes mellitus without complications ; Z79.4 - long term care phlebotomist (current) use of insulin (3) HTN (hypertension) Current Visit: No Status: Chronic Qualifiers: Hypertension type: essential hypertension Qualified Code(s): I10 - Essential (primary) hypertension (4) Paroxysmal atrial fibrillation Current Visit: No Status: Chronic (5) Depression Current Visit: No Status: Chronic Qualifiers: Depression Type: unspecified Qualified Code(s): F32.9 - Major depressive disorder, single episode, unspecified (6) Gastritis Current Visit: Yes Status: Acute pt has been on PPI therapy, will start carafate Qualifiers: Gastritis type: unspecified gastritis Chronicity: unspecified Gastritis bleeding: without bleeding Qualified Code(s): K29.70 - Gastritis, unspecified , without bleeding Subjective Narrative: still complaining of LUQ pain, some nausea tolerated clears, no emesis Objective Vital Signs - Last 8 Hours Temp Pulse Resp BP Pulse Ox 09/09/16 10:32 69 18 133/40 97 09/09/16 10:27 72 18 139/54 93 L 09/09/16 10:22 71 18 168/80 93 L 09/09/16 10:17 69 18 174/81 98 09/09/16 10:12 70 18 142/70 94 L 09/09/16 10:07 66 18 144/68 97 09/09/16 10:02 57 18 134/63 98 09/09/16 09:57 62 18 147/36 98 09/09/16 09:25 98.5 F 62 18 148/64 94 L 09/09/16 06:47 98.4 F 70 16 100/47 95 09/09/16 04:35 98.1 F 64 17 125/72 93 L Intake and Output 09/08/16 09/09/16 09/09/16 23:59 07:59 15:59 Intake Total 1480 / 1480 773 / 773 227 / 227 Output Total 500 / 500 800 / 800 Balance 980 / 980 -27 / -27 / Intake: IV Fluids 1000 / 1000 773 / 773 227 / 227 0.9 % Sodium Chloride 1, 1000 / 1000 773 / 773 227 / 227 000 ML @ 100 mls/hr IVC . Q10H [facility] Rx#:[id number] Oral 480 / 480 0 / 0 0 / 0 Output: Urine 500 / 500 800 / 800 Other: Meal Dinner NPO Percent of Meal Consumed 0% Stool Size Moderate Small Stool Consistency liquid liquid Stool Color Brown Yellow Pale # Bowel Movements 1 Weight 89.8 kg Blood Glucose* 141 118 Patient Weight 09/09/16 23:59 Weight 89.8 kg - General physical appearance well developed, well nourished, no distress - Eyes PERRL, normal ocular movement - ENT normal mucosa, normocephalic - Neck Neck exam: trachea midline - Respiratory clear to auscultation - Cardiovascular Cardiovascular exam: Present: RRR - Abdomen Abdomen: Present: bowel sounds present, soft, tender. Absent: distended, guarding, rebound Abdominal Tenderness: RUQ - Integumentary no rash, no growths, no abnormal pigmentation - Neurologic CN 2-12 grossly intact - Musculoskeletal normal posture - Psychiatric oriented to time, oriented to person, oriented to place - Labs 09/07/16 15:46 09/09/16 04:56 Diabetes panel 09/09/16 Range/Units 04:56 Sodium 138 (136-145) mEq/L Potassium 3.5 (3.5-4.5) mEq/L Chloride 111 H (98-109) mEq/L Carbon Dioxide 21 (19-29) mEq/L BUN 6 L (7-20) mg/dL Creatinine 0.72 (0.57-1.11) mg/dL Glucose 114 H (70-99) mg/dL Calcium 7.4 L (8.6-10.8) mg/dL Calcium panel 09/09/16 Range/Units 04:56 Calcium 7.4 L (8.6-10.8) mg/dL Pituitary panel 09/09/16 Range/Units 04:56 Sodium 138 (136-145) mEq/L Potassium 3.5 (3.5-4.5) mEq/L Chloride 111 H (98-109) mEq/L Carbon Dioxide 21 (19-29) mEq/L BUN 6 L (7-20) mg/dL Creatinine 0.72 (0.57-1.11) mg/dL Glucose 114 H (70-99) mg/dL Calcium 7.4 L (8.6-10.8) mg/dL Adrenal panel 09/09/16 Range/Units 04:56 Sodium 138 (136-145) mEq/L Potassium 3.5 (3.5-4.5) mEq/L Chloride 111 H (98-109) mEq/L Carbon Dioxide 21 (19-29) mEq/L BUN 6 L (7-20) mg/dL Creatinine 0.72 (0.57-1.11) mg/dL Glucose 114 H (70-99) mg/dL Calcium 7.4 L (8.6-10.8) mg/dL - Imaging Additional Studies: HIDA results personally reviewed as well as CT scan
[2016-09-09] MEDS ORDERED: *HR* FentaNYL (PF) 100 MCG/2 ML VIAL ONE (08:52)
[2016-09-09] MEDS ORDERED: *HR* Midazolam HCl 5 MG/5 ML VIAL IVP ONE (08:52)
[2016-09-09] MEDS ORDERED: *HR* Promethazine 25 MG/ML VIAL ONE (08:52)
[2016-09-09] MEDS ORDERED: *HR* FentaNYL (PF) 100 MCG/2 ML VIAL IVP PRN (10:06)
[2016-09-09] MEDS ORDERED: Tetracaine/Benzocaine/Butamben 200MG/SPRAY (100SPY/BOT) MM ONE (10:06)
[2016-09-09] MEDS ORDERED: Simethicone 40 MG/0.6 ML MLS IR ONE (10:06)
--- NOTE | 2016-09-09 10:08 | Pre-Sedation Evaluation ---
Pre-sedation evaluation - Pre-sedation checklist Date of procedure: 09/09/16 Procedure: egd/colonoscopy Recent Vitals: Last Vital Signs Temp 98.5 F 09/09/16 09:25 Pulse 66 09/09/16 10:07 Resp 18 09/09/16 10:07 BP 144/68 09/09/16 10:07 Pulse Ox 97 09/09/16 10:07 H&P (including ROS) documented in medical record: Yes Dietary Status: NPO after Midnight ASA Classification *see protocol: CLASS III-Severe systemic disease Plan of Care: Pt appropriate candidate for procedure/moderate/conscious sedation , Risks/benefits of procedure/sedation discussed w/ patient/family
[2016-09-09] MEDS: *HR* Promethazine 25 MG/ML VIAL IVP ONE ×2 (10:09→11:49)
[2016-09-09] MEDS: *HR* Midazolam HCl 5 MG/5 ML VIAL IVP PRN ×2 (10:10→10:12)
[2016-09-09] MEDS: 0.9 % Sodium Chloride 1,000 ML IVC SCH (11:01)
--- NOTE | 2016-09-09 11:12 | Discharge Summary ---
<Chuck Live - Last Filed: 09/11/16 07:47> Date of Encounter: 09/11/16 Time of Encounter: 07:30 - Discharge Diagnosis (1) Abdominal pain Priority: Primary Status: Acute Qualifiers: Abdominal location: right upper quadrant Qualified Code(s): R10.11 - Right upper quadrant pain (2) Depression Priority: Secondary Status: Chronic Qualifiers: Depression Type: unspecified Qualified Code(s): F32.9 - Major depressive disorder, single episode, unspecified (3) Anxiety Priority: Secondary Status: Chronic (4) HTN (hypertension) Priority: Secondary Status: Chronic Qualifiers: Hypertension type: essential hypertension Qualified Code(s): I10 - Essential (primary) hypertension (5) Hyperlipemia Priority: Secondary Status: Chronic Qualifiers: Hyperlipidemia type: unspecified Qualified Code(s): E78.5 - Hyperlipidemia , unspecified (6) Paroxysmal atrial fibrillation Priority: Secondary Status: Chronic (7) DVT prophylaxis Priority: Secondary Status: Acute (8) Diabetes mellitus Priority: Secondary Status: Chronic Qualifiers: Diabetes mellitus type: type 2 Diabetes mellitus complication status: without complication Diabetes mellitus long-term insulin use: with supervisor long goods use Qualified Code(s): E11.9 - Type 2 diabetes mellitus without complications ; Z79.4 - MCFP (current) use of insulin - Discharge Medications Prescriptions: Lidocaine [Lidoderm] 1 each TP Q12HR PRN #20 adh..patch PRN Reason: Pain Oxycodone HCl/Acetaminophen [Percocet 5-325 mg Tablet] 1 each PO Q12HR PRN #10 tablet PRN Reason: Pain Home Medications: Albuterol Sulfate [Proair Respiclick] 2 puff IH Q4H PRN 10/26/15 [History] Aspirin [Adult Low Dose Aspirin EC] 81 mg PO DAILY 10/26/15 [History] Etonogestrel [Nexplanon] 68 mg SQ AD 10/26/15 [History] Insulin ASPART [Novolog Flexpen] 2 - 10 unit SQ TID 10/26/15 [History] Lisinopril [Zestril] 5 mg PO DAILY 10/26/15 [History] Metformin [Glucophage] 1,000 mg PO BIDWM 10/26/15 [History] Omeprazole [PriLOSEC] 40 mg PO DAILY 10/26/15 [History] Pregabalin [Lyrica] 100 mg PO BID 10/26/15 [History] Sertraline [Zoloft] 150 mg PO DAILY 10/26/15 [History] Trazodone HCl 50 - 100 mg PO HS PRN 10/26/15 [History] Atorvastatin Calcium [Lipitor] 20 mg PO DAILY #0 04/17/16 [Rx] Ibuprofen [Motrin] 600 mg PO Q6-8H PRN #30 tab 05/21/16 [Rx] Docusate Sodium [Colace] 100 mg PO DAILY PRN 30 Days 08/06/16 [Rx] ClonazePAM [Klonopin] 0.5 mg PO HS #30 tablet 08/19/16 [Rx] Insulin Glargine,Hum.rec.anlog [Lantus Solostar] 50 unit SQ BID 30 Days [Rx] Metoprolol [Lopressor] 25 mg PO BID 30 Days 08/19/16 [Rx] OxyCODONE/APAP 5/325 [Percocet 5/325 MG] 1 each PO Q6HR PRN #30 tablet 08/19/16 [Rx] Dicyclomine [Bentyl] 10 mg PO QID PRN #20 capsule 08/29/16 [Rx] Lidocaine [Lidoderm] 1 each TP Q12HR PRN #20 adh..patch 09/10/16 [Rx] Oxycodone HCl/Acetaminophen [Percocet 5-325 mg Tablet] 1 each PO Q12HR PRN #10 tablet 09/10/16 [Rx] Allergies/Adverse Reactions: Allergies No Known Allergies Allergy (Verified 09/07/16 13:36) General Surgery Exam Initial Vital Signs Temp Pulse Resp BP Pulse Ox 98.0 F 74 18 144/84 97 09/07/16 13:36 09/07/16 13:36 09/07/16 13:36 09/07/16 13:36 09/07/16 13:36 - General physical appearance well developed, well nourished, no distress - Eyes normal ocular movement - ENT normal mucosa, atraumatic, normocephalic - Neck trachea midline - Respiratory normal respiratory effort, clear to auscultation - Cardiovascular Cardiovascular exam: Present: RRR - Abdomen Abdomen general surgery: Present: bowel sounds present, soft Abdominal Tenderness: Present: RUQ - Integumentary Integumentary general surgery: Present: warm and dry - Neurologic Present: CN 2-12 grossly intact - Musculoskeletal Present: normal posture - Psychiatric Psychiatric general surgery: Present: appropriate, oriented to person, oriented to place, oriented to time, speech is normal Date of admission: 09/07/16 18:32 Primary care physician: Joanne Paez Discharging clinician: Anneliese Mendoza Anticipated date of discharge: 09/11/16 - Patient Status Functional capacity at discharge: independent ambulation Overall status at discharge: patient is progressing back to baseline - Discharge Instructions Follow Up With: Joanne Paez MD [Primary Care Provider] - 09/18/16 10:45 am Forms: ED Satisfaction Letter, Work/School Release Additional Instructions: Call your primary care physician for a followup appointment as an outpatient within the next 10 days. - Diet and Activity Activity: increase activity as tolerated Diet: advance to your usual diet - Hospital Course Hospital course: Ms. Jacome is a 50 year old female who is status post laparascopic cholecystectomy per Dr. Brannon 08/05/16 who presented to the ED on 09/07/16 for abdominal pain. She states she has had frequent abdominal pain since her surgery on 08/05, which never seems to go away. During hospitalization she underwent a HIDA scan, which was negative for bile leakage. She additionally underwent colonoscopy, which demonstrated one small polyp and EGD, which demonstrated gastritis. She was started on carafate and omeprazole and given a lidoderm patch for her pain. She underwent ERCP as well and did not have any stones in her bile ducts on 09/10/16. The patient reports that she is feeling much better the morning of 09/11/16 and is wanting to return to work. She will be discharged home today. All questions were answered and the patient is agreeable to the plan of care. - Time Spent with Patient Total time spent providing and/or coordinating discharge services: Less than 30 minutes Labs on day of discharge: Labs from last 24 hours 09/09/16 09/09/16 09/08/16 05:44 04:56 23:34 PT INR Sodium 138 Potassium 3.5 Chloride 111 H Carbon Dioxide 21 BUN 6 L Creatinine 0.72 Est GFR ( Amer) > 60 Est GFR (Non-Af Amer) > 60 BUN/Creatinine Ratio 8 Glucose 114 H POC Glucose 118 H 141 H Calculated Osmolality 284 Calcium 7.4 L 09/08/16 09/08/16 09/08/16 16:11 13:03 11:48 PT 11.7 INR 1.1 Sodium Potassium Chloride Carbon Dioxide BUN Creatinine Est GFR ( Amer) Est GFR (Non-Af Amer) BUN/Creatinine Ratio Glucose POC Glucose 205 H 130 H Calculated Osmolality Calcium - Attending Attestation I examined this patient and my medical decision-making was reviewed with the FAMILY AND MARRIAGE COUNSELLOR/PA/Advanced Practice Nurse/Resident Physician. I agree with the documented findings, disposition and treatment plan as described except to the extent set forth below. <Anneliese Mendoza L - Last Filed: 09/11/16 14:28> - Discharge Diagnosis (1) Abdominal pain Status: Acute Qualifiers: Abdominal location: right upper quadrant Qualified Code(s): R10.11 - Right upper quadrant pain (2) Diabetes mellitus Status: Chronic Qualifiers: Diabetes mellitus type: type 2 Diabetes mellitus complication status: without complication Diabetes mellitus supervisor long goods insulin use: with supervisor long goods use Qualified Code(s): E11.9 - Type 2 diabetes mellitus without complications ; Z79.4 - MCFP (current) use of insulin (3) HTN (hypertension) Status: Chronic Qualifiers: Hypertension type: essential hypertension Qualified Code(s): I10 - Essential (primary) hypertension (4) Paroxysmal atrial fibrillation Status: Chronic (5) Depression Status: Chronic Qualifiers: Depression Type: unspecified Qualified Code(s): F32.9 - Major depressive disorder, single episode, unspecified (6) Gastritis Status: Acute Qualifiers: Gastritis type: unspecified gastritis Chronicity: unspecified Gastritis bleeding: without bleeding Qualified Code(s): K29.70 - Gastritis, unspecified , without bleeding General Surgery Exam Initial Vital Signs Temp Pulse Resp BP Pulse Ox 98.0 F 74 18 144/84 97 09/07/16 13:36 09/07/16 13:36 09/07/16 13:36 09/07/16 13:36 09/07/16 13:36 Date of admission: 09/07/16 18:32 Primary care physician: Joanne Paez Consults: 09/09/16 13:41 Consult to Gastroenterology [CONS] Routine Consulting Provider: [facility] [place] Reason for Consult: Right upper quadrant pain s/p cholecystectomy 08/05/16. Two HIDA scans show no bile leak. Pain nonresolving. Call Completed: No - Patient Status Functional capacity at discharge: independent ambulation Overall status at discharge: patient is progressing back to baseline - Diet and Activity Activity: increase activity as tolerated Diet: advance to your usual diet - Hospital Course Hospital course: Ms. Jacome is a 50 year old female - Time Spent with Patient Total time spent providing and/or coordinating discharge services: Labs on day of discharge: Labs from last 24 hours 09/11/16 09/11/16 09/11/16 08:11 05:18 00:00 POC Glucose 231 H 290 H Lipase 17 09/10/16 09/10/16 20:38 17:23 POC Glucose 319 H 145 H Lipase - Impressions ITS Impressions Cath/Invasive Procedure 09/10/16 15:00 IMPRESSION: Fluoroscopy provided for ERCP procedure. Please see the intraoperative note for complete details. D/ / 09/10/2016 16:55:12 Yasir Kim MD / cleopatra Interpreting Provider: Yasir Kim MD
[2016-09-09] MEDS: Sucralfate 1 GM TABLET PO SCH ×3 (11:54→20:36)
[2016-09-09] MEDS: *HR* Metformin 500 MG TABLET PO SCH (16:58)
[2016-09-09] MEDS: *HR* OxyCODONE/APAP 5/325 TABLET PO PRN (16:58)
[2016-09-09] MEDS: clonazePAM 0.5 MG TABLET PO SCH (20:36)
[2016-09-09] MEDS: Insulin DETEMIR 100 UNIT/ML X5UNITS SQ SCH (20:39)
[2016-09-10] MEDS: Insulin LISPRO 300 UNITS/3 ML VIAL SQ SCH ×4 (01:05→17:42)
[2016-09-10] MEDS: *HR* OxyCODONE/APAP 5/325 TABLET PO PRN ×3 (02:42→18:51)
[2016-09-10] MEDS: Ondansetron 4 MG/2 ML VIAL IVP PRN (04:31)
--- NOTE | 2016-09-10 07:21 | General Surgery Progress Note ---
<Chuck Live - Last Filed: 09/10/16 16:53> Date of Encounter: 09/10/16 Time of Encounter: 07:19 - Assessment and Plan (1) Abdominal pain Status: Acute Not improved by lidoderm patches. Consult to GI. Repeat basic labs. Hepatitis panel. NPO for possible ERCP. Qualifiers: Abdominal location: right upper quadrant Qualified Code(s): R10.11 - Right upper quadrant pain (2) Depression Status: Chronic Continue home medications. Qualifiers: Depression Type: unspecified Qualified Code(s): F32.9 - Major depressive disorder, single episode, unspecified (3) Anxiety Status: Chronic Continue home medications. (4) HTN (hypertension) Status: Chronic Well controlled. Continue home medications. Qualifiers: Hypertension type: essential hypertension Qualified Code(s): I10 - Essential (primary) hypertension (5) Hyperlipemia Status: Chronic Qualifiers: Hyperlipidemia type: unspecified Qualified Code(s): E78.5 - Hyperlipidemia , unspecified (6) Paroxysmal atrial fibrillation Status: Chronic rate controlled. (7) DVT prophylaxis Status: Acute Ambulate TID with assist (8) Diabetes mellitus Status: Chronic SSI with accuchecks as the patient is NPO.. Qualifiers: Diabetes mellitus type: type 2 Diabetes mellitus complication status: without complication Diabetes mellitus remote computer terminal operator insulin use: with remote computer terminal operator use Qualified Code(s): E11.9 - Type 2 diabetes mellitus without complications ; Z79.4 - MCFP (current) use of insulin Subjective Patient reports: still having pain, tolerating a regular diet, diarrhea, nausea , vomiting, afebrile Narrative: The patient was sleeping as I entered the room. The patient states she feels worse today as she was not able to get any sleep last night due to pain. She had an episode of vomiting x1 last night, without any blood or bile. She reports continued nausea as well. She also complained of some confusion this morning, stating she didn't know where she was when she woke up at times during the night. Objective Vital Signs - Last 8 Hours Temp Pulse Resp BP Pulse Ox 09/10/16 04:20 98.9 F 67 16 135/74 96 09/10/16 00:24 97.9 F 67 17 136/84 97 Intake and Output 09/09/16 09/09/16 09/10/16 15:59 23:59 07:59 Intake Total 327 / 327 1120 / 1120 240 / 240 Output Total 0 / 0 0 / 0 Balance 327 / 327 1120 / 1120 240 / 240 Intake: IV Fluids 327 / 327 0.9 % Sodium Chloride 1, 327 / 327 000 ML @ 100 mls/hr IVC . Q10H [facility] Rx#:[id number] Oral 0 / 0 1120 / 1120 240 / 240 Output: Urine 0 / 0 0 / 0 Other: Meal NPO Dinner Percent of Meal Consumed 0% 100% Stool Size Large Stool Consistency formed Stool Characteristics Normal for Patient Stool Color Brown # Voids 3 # Bowel Movements 1 Blood Glucose* 116 164 - General physical appearance well developed, well nourished, no distress - Eyes normal ocular movement - ENT normal mucosa, atraumatic, normocephalic - Neck Neck exam: trachea midline - Respiratory normal respiratory effort, clear to auscultation - Cardiovascular Cardiovascular exam: Present: RRR - Abdomen Abdomen: Present: bowel sounds present, soft Abdominal Tenderness: RUQ - Neurologic CN 2-12 grossly intact - Musculoskeletal normal posture - Psychiatric oriented to time, oriented to person, oriented to place, speech is normal, memory intact - Labs 09/10/16 07:56 09/10/16 07:56 Consult Discharge Plan - Plan Additional Instructions: Call your primary care physician for a followup appointment as an outpatient within the next 10 days. Referrals: Joanne Paez MD [Primary Care Provider] - 09/18/16 10:45 am Prescriptions: Lidocaine [Lidoderm] 1 each TP Q12HR PRN #20 adh..patch PRN Reason: Pain Oxycodone HCl/Acetaminophen [Percocet 5-325 mg Tablet] 1 each PO Q12HR PRN #10 tablet PRN Reason: Pain - Attending Attestation I examined this patient and my medical decision-making was reviewed with the PUBLIC FINANCE SPECIALIST/PA/Advanced Practice Nurse/Resident Physician. I agree with the documented findings, disposition and treatment plan as described except to the extent set forth below. <Anneliese Mendoza - Last Filed: 09/11/16 14:35> - Assessment and Plan (1) Abdominal pain Status: Acute hepatitis panel negative gi consulted and going to do ercp today Qualifiers: Abdominal location: right upper quadrant Qualified Code(s): R10.11 - Right upper quadrant pain (2) Diabetes mellitus Status: Chronic Qualifiers: Diabetes mellitus type: type 2 Diabetes mellitus complication status: without complication Diabetes mellitus senior living insulin use: with remote computer terminal operator use Qualified Code(s): E11.9 - Type 2 diabetes mellitus without complications ; Z79.4 - remote computer terminal operator (current) use of insulin (3) HTN (hypertension) Status: Chronic Qualifiers: Hypertension type: essential hypertension Qualified Code(s): I10 - Essential (primary) hypertension (4) Paroxysmal atrial fibrillation Status: Chronic (5) Depression Status: Chronic Qualifiers: Depression Type: unspecified Qualified Code(s): F32.9 - Major depressive disorder, single episode, unspecified (6) Gastritis Status: Acute Qualifiers: Gastritis type: unspecified gastritis Chronicity: unspecified Gastritis bleeding: without bleeding Qualified Code(s): K29.70 - Gastritis, unspecified , without bleeding Objective Vital Signs - Last 8 Hours Temp Pulse Resp BP Pulse Ox 09/11/16 08:02 98.1 F 64 14 125/69 96 Intake and Output 09/10/16 09/11/16 09/11/16 23:59 07:59 15:59 Intake Total 463 / 463 0 / 0 Output Total 1300 / 1300 1500 / 1500 700 / 700 Balance -837 / -837 -1500 / -1500 -700 / -700 Intake: IV Fluids 103 / 103 KCl 20mEq in 0.45 % NaCl 103 / 103 20 meq In 1,000 ml @ 75 mls/hr IVC .[id number] [facility] Rx#:[id number] Oral 360 / 360 0 / 0 Output: Urine 1300 / 1300 1500 / 1500 700 / 700 Other: Meal Dinner Percent of Meal Consumed 100% Weight 89.811 kg Blood Glucose* 290 231 Patient Weight 09/11/16 23:59 Weight 89.811 kg - General physical appearance well developed, well nourished, no distress, no pain - Eyes PERRL, normal ocular movement - Abdomen Abdomen: Present: bowel sounds present, soft, tender. Absent: guarding, rebound Abdominal Tenderness: RUQ - Musculoskeletal normal posture - Psychiatric oriented to time, oriented to person, memory intact - Labs 09/10/16 07:56 09/10/16 07:56
[2016-09-10] MEDS: Sucralfate 1 GM TABLET PO SCH ×4 (07:47→22:08)
[2016-09-10] MEDS: *HR* Metformin 500 MG TABLET PO SCH ×2 (07:47→17:02)
[2016-09-10 08:23] LABS: Basophils % 0.2 %; Eosinophils # 0.2 K/mcL (0.0-0.6); Eosinophils % 4.4 %; Hematocrit 29.5 % (35.3-44.9); Hemoglobin 9.3 g/dL (11.5-15.4); Immature Granulocytes % 0.4 % (0-4); Lymphocytes % 22.1 %; Mean Corpuscular HGB Conc 31.5 g/dL (31.6-35.5); Mean Corpuscular Hemoglobin 24.4 pg (28.0-33.3); Mean Corpuscular Volume 77.4 fL (83.0-100.0); Mean Platelet Volume 10.5 fL (9.4-12.4); Monocytes # 0.2 K/mcL (0.0-1.3); Monocytes % 4.4 %; Neutrophils # 3.1 K/mcL (1.6-8.9); Platelet Count 183 K/mcL (140-400); Red Blood Count 3.81 M/mcL (3.82-4.97); Red Cell Distribution Width 17.2 % (11.5-14.5); Segmented Neutrophils % 68.5 %
[2016-09-10 08:38] LABS: BUN/Creatinine Ratio 7 (6-26); Calcium 8.4 mg/dL (8.6-10.8); Carbon Dioxide 23 mEq/L (19-29); Chloride 109 mEq/L (98-109); Glucose 139 mg/dL (70-99); Osmolality,Calculated 290 (280-300); Potassium 3.4 mEq/L (3.5-4.5); Sodium 140 mEq/L (136-145); eGFR For African Americans > 60 (> 60); eGFR For Non-African Americans > 60 (> 60)
[2016-09-10 08:39] LABS: Blood Urea Nitrogen 5 mg/dL (7-20)
[2016-09-10] MEDS ORDERED: NON-FORMULARY MEDICATION 1 EACH EACH (Omeprazole [Prilosec] 40 MG) PO SCH (09:00)
[2016-09-10] MEDS: Insulin DETEMIR 100 UNIT/ML X5UNITS SQ SCH ×2 (09:52→20:47)
[2016-09-10] MEDS: Pregabalin 50 MG CAPSULE PO SCH ×2 (09:54→20:47)
[2016-09-10] MEDS: Aspirin Enteric Coated 81 MG Tablet PO SCH (09:54)
[2016-09-10] MEDS ORDERED: *HR* Morphine 2 MG/ML SYRINGE IVP ONE (10:23)
[2016-09-10] MEDS ORDERED: 0.45 % Sodium Chloride w/KCl 20 MEQ/1,000 ML MLS IVC SCH (10:45)
--- NOTE | 2016-09-10 11:52 | Gastroenterology Consult Note ---
<Virgil Remy Janelle - Last Filed: 09/10/16 11:50> Date of Encounter: 09/10/16 Time of Encounter: 10:50 - Assessment and plan (1) Abdominal pain Current Visit: Yes Status: Acute Assessment and plan: RUQ pain, s/p cholecystectomy 08/05/2016. HIDA scan on 08/09/2016 and 2016 showed no bile leak. CT A/P shows persistent fluid in the gallbladder fossa. Possible small stones vs small bile leak. LFTs wnl. Consider ERCP. Qualifiers: Abdominal location: right upper quadrant Qualified Code(s): R10.11 - Right upper quadrant pain (2) Gastritis Current Visit: Yes Status: Acute Assessment and plan: Noted on EGD. Continue PPI. Continue Carafate for now. Qualifiers: Gastritis type: unspecified gastritis Chronicity: unspecified Gastritis bleeding: without bleeding Qualified Code(s): K29.70 - Gastritis, unspecified , without bleeding (3) Paroxysmal atrial fibrillation Current Visit: No Status: Chronic Assessment and plan: Rate controlled. - Time Spent With Patient Total time spent is greater than 50% in coordination of care (as documented) at patient's floor/unit and/or counseling patient: GI History of Present Illness - Data of Consult Patient: new to practice Consult date: 09/10/16 Requesting Physician: Anneliese Mendoza MD - Consult Narrative Reason for consult: RUQ pain s/p cholecystectomy History of present illness: Ms. Jacome is a 50 year old female with PMHx of Afib, COPD, CVA, DM, HLD, HTN, CO who is s/p lap james on 08/05/[address] Brannon with c/o RUQ pain and nausea. She has had 2 HIDA scans, 08/09/16 and 09/07/16, both show no bile leak. She reports her pain is similar to previous episodes. She reports nausea but denies vomiting. EGD 09/09 with full stomach gastritis, no ulcers or bleeding, duodenum normal, no obvious esophagitis. Colonoscopy 09/10 with one small sigmoid polyp. She has been on PPI therapy, and was started on Carafate 09/09. Procedures: EGD 09/09/16 Dr. Mendoza: with full stomach gastritis, no ulcers or bleeding, duodenum normal, no obvious esophagitis. Colonoscopy 09/09/16 Dr. Mendoza: with one small sigmoid polyp. NSAIDs: Ibuprofen, ASA Anticoagulation: None Past Med Surg Social Fam HX - Past Medical History Medical history: atrial fibrillation, COPD, CVA, diabetes, hyperlipidemia, hypertension, myocardial infarction Psychiatric history: anxiety, depression - Past Surgical History Surgical History: , cholecystectomy - Social History Smoking Status: Never smoker Smokeless Tobacco Status: No Alcohol use: none Drug use: none - Family History Mother Living Status: Hx Family Cardiac Disorders: Yes Hx Family Respiratory Disorders: Yes (copd) Hx Family Cancer: Yes (lung cancer) Hx Family Endocrine Disorder: Yes (DM type II) Father Living Status: Hx Family Cardiac Disorders: Yes Hx Family Cancer: Yes (stomach cancer) Hx Family Endocrine Disorder: Yes (DM) - Gastrointestinal Gastrointestinal: Present: as per HPI - Constitutional Constitutional: as per HPI - EENT Eyes: as per HPI Ears: Present: as per HPI Nose, mouth and throat: Present: as per HPI - Cardiovascular Cardiovascular ROS: Present: as per HPI - Respiratory Respiratory IM: Present: as per HPI - Genitourinary Genitourinary: Absent: change in color, Urinary frequency - Neurological ROS Neurological GI: Present: as per HPI - Hematologic/Lymphatic Hematologic/Lymphatic pediatric: Present: as per HPI - Musculoskeletal Musculoskeletal ROS GI: Present: as per HPI - Integumentary Integumentary GI: Present: as per HPI - Psychiatric ROS Psychiatric GI: Present: as per HPI - Endocrine Endocrine IM: Present: as per HPI - Constitutional Vitals: Temp Pulse Resp BP Pulse Ox 97.5 F L 61 16 145/83 96 09/10/16 11:16 09/10/16 11:16 09/10/16 11:16 09/10/16 11:16 09/10/16 11:16 General appearance: Present: cooperative, A&O X 3, no acute distress, answers questions appropriately - Head Head exam: Present: atraumatic, normocephalic - Eye Eye exam: Present: normal appearance, sclera anicteric - ENT ENT exam: Present: mucous membranes dry - Neck Neck exam general surgery: Present: normal inspection, trachea midline - Respiratory Respiratory exam: Present: CTAB. Absent: rales, rhonchi - Cardiovascular Cardiovascular exam: Present: RRR, +S1, +S2 - GI/Abdominal GI/Abdominal exam: Present: guarding, soft, tenderness (RUQ), no peritoneal signs. Absent: distended, firm - Rectal Rectal exam: Present: deferred - Extremities Exam Extremities exam: Present: warm - Neurological Exam Neurological exam: Present: no focal deficits - Psychiatric Psychiatric exam: Present: normal affect, normal mood - Skin Skin exam: Present: dry, intact, normal color, warm Results - Labs CBC & Chem 7: 09/10/16 07:56 09/10/16 07:56 Labs: Last Result Calcium 8.4 mg/dL (8.6-10.8) L 09/10/16 07:56 Entire Visit Hgb 9.3 g/dL (11.5-15.4) L 09/10/16 07:56 Hct 29.5 % (35.3-44.9) L 09/10/16 07:56 PT 11.7 Seconds (9.4-12.1) 09/08/16 13:03 Total Bilirubin 0.7 mg/dL (0.2-1.2) 09/07/16 15:46 AST 18 Units/L (5-34) 09/07/16 15:46 ALT 18 Units/L (0-55) 09/07/16 15:46 Amylase 22 Units/L (25-125) L 09/07/16 15:46 Lipase 18 Units/L (8-78) 09/07/16 15:46 - ABG ABG results: PT/INR, D-dimer PT 11.7 Seconds (9.4-12.1) 09/08/16 13:03 Consult Discharge Plan - Plan Referrals: Joanne Paez MD [Primary Care Provider] - <Adrienne Stevens - Last Filed: 09/10/16 12:53> Time of Encounter: 12:30 - Time Spent With Patient Total time spent is greater than 50% in coordination of care (as documented) at patient's floor/unit and/or counseling patient: GI History of Present Illness - Data of Consult Requesting Physician: Anneliese Mendoza MD - Consult Narrative History of present illness: Ms. Jacome is a 50 year old female - Constitutional Vitals: Temp Pulse Resp BP Pulse Ox 97.5 F L 61 16 145/83 96 09/10/16 11:16 09/10/16 11:16 09/10/16 11:16 09/10/16 11:16 09/10/16 11:16 Results - Labs CBC & Chem 7: 09/10/16 07:56 09/10/16 07:56 Labs: Last Result Calcium 8.4 mg/dL (8.6-10.8) L 09/10/16 07:56 Entire Visit Hgb 9.3 g/dL (11.5-15.4) L 09/10/16 07:56 Hct 29.5 % (35.3-44.9) L 09/10/16 07:56 PT 11.7 Seconds (9.4-12.1) 09/08/16 13:03 Total Bilirubin 0.7 mg/dL (0.2-1.2) 09/07/16 15:46 AST 18 Units/L (5-34) 09/07/16 15:46 ALT 18 Units/L (0-55) 09/07/16 15:46 Amylase 22 Units/L (25-125) L 09/07/16 15:46 Lipase 18 Units/L (8-78) 09/07/16 15:46 - ABG ABG results: PT/INR, D-dimer PT 11.7 Seconds (9.4-12.1) 09/08/16 13:03 - Attending Attestation I examined this patient and my medical decision-making was reviewed with the ELECTRICAL WIRER/PA/Advanced Practice Nurse/Resident Physician. I agree with the documented findings, disposition and treatment plan as described except to the extent set forth below. Patient seen per patient before cholecystectomy she was having mostly nausea vomiting now she is having right side upper quadrant abdominal pain since her surgery. HIDA scan has been negative. Her symptoms could be due to chemical peritonitis although there is no obvious leak. Also need to rule out any CBD stone. Procedure including risks such as perforation pancreatitis and infection were discussed with the patient , she voiced understanding and in agreement with the procedure
[2016-09-10 12:11] LABS: Hepatitis A Antibody IgM Nonreactive (Nonreactive); Hepatitis B Core IgM Nonreactive (Nonreactive); Hepatitis B Surface Antigen Nonreactive (Nonreactive); Hepatitis C Virus Antibody Nonreactive (Nonreactive)
[2016-09-10] MEDS ORDERED: 0.9 % Sodium Chloride 500 ML IVC SCH (14:30)
--- NOTE | 2016-09-10 14:30 | Anesthesia Evaluation PreOp ---
Date of Encounter: 09/10/16 Time of Encounter: 14:28 - Past History Planned Operation: ERCP (Bile leak) Cardiac History: NH, HTN, Hyperlipidemia, Arrhythmia (A fib s/p cardiac ablation (8-9 months ago)), Other (Patient with Loop Recorder) Pulmonary History: COPD, Other (hx PE in 2011) DIRECTOR BUSINESS MANAGEMENT History: CVA (L-sided weakness) Other Medical History: Diabetes Type II (oral medications only), GERD (oral medications only) Anesthesia History: No Prior Anesthetic Complications Alcohol Use: none Drug use: none Medications and Allergies Albuterol Sulfate [Proair Respiclick] 2 puff IH Q4H PRN 10/26/15 [History] Aspirin [Adult Low Dose Aspirin EC] 81 mg PO DAILY 10/26/15 [History] Etonogestrel [Nexplanon] 68 mg SQ AD 10/26/15 [History] Insulin ASPART [Novolog Flexpen] 2 - 10 unit SQ TID 10/26/15 [History] Lisinopril [Zestril] 5 mg PO DAILY 10/26/15 [History] Metformin [Glucophage] 1,000 mg PO BIDWM 10/26/15 [History] Omeprazole [PriLOSEC] 40 mg PO DAILY 10/26/15 [History] Pregabalin [Lyrica] 100 mg PO BID 10/26/15 [History] Sertraline [Zoloft] 150 mg PO DAILY 10/26/15 [History] Trazodone HCl 50 - 100 mg PO HS PRN 10/26/15 [History] Atorvastatin Calcium [Lipitor] 20 mg PO DAILY #0 04/17/16 [Rx] Ibuprofen [Motrin] 600 mg PO Q6-8H PRN #30 tab 05/21/16 [Rx] Docusate Sodium [Colace] 100 mg PO DAILY PRN 30 Days 08/06/16 [Rx] ClonazePAM [Klonopin] 0.5 mg PO HS #30 tablet 08/19/16 [Rx] Insulin Glargine,Hum.rec.anlog [Lantus Solostar] 50 unit SQ BID 30 Days [Rx] Metoprolol [Lopressor] 25 mg PO BID 30 Days 08/19/16 [Rx] OxyCODONE/APAP 5/325 [Percocet 5/325 MG] 1 each PO Q6HR PRN #30 tablet 08/19/16 [Rx] Dicyclomine [Bentyl] 10 mg PO QID PRN #20 capsule 08/29/16 [Rx] Allergies No Known Allergies Allergy (Verified 09/07/16 13:36) - Meds/Allergy Pre-op Review Medications Reviewed: Yes Allergies Reviewed: Yes Beta Blockers on Current Med List: Yes If Beta Blockers taken, Date/Time (Last Dose taken): 09-09-16 metoprolol at 20:35 Anesthesia Results - Labs 09/10/16 07:56 09/10/16 07:56 - Imaging EKG: report reviewed, image reviewed (SB with short VA) Additional studies: TTE: LVEF 55% no sign valvular dysfunction no pulm htn Anesthesia Exam Last Vital Signs Temp 97.5 F L 09/10/16 11:16 Pulse 70 09/10/16 14:22 Resp 18 09/10/16 14:22 BP 112/76 09/10/16 14:22 Pulse Ox 92 L 09/10/16 14:22 Weight: 90 kg NPO (# of Hours): >> 8 hrs - HEENT Pupil (Motor): Pupils equal, EOMI Mallampati: I Teeth: Missing Denture Type: Upper: Complete Oral Opening: Greater than 3 - DIRECTOR BUSINESS MANAGEMENT LOC: Oriented - Cardiac Rhythm: Regular Murmur: Systolic (low grade ARPITA) - Pulmonary Breath Sounds: bilateral Clear Respiratory Effort: Symmetrical Anesthesia Assess/Plan ASA Score: 3 Modified Phoebe Scale for Level of Consciousness: Cooperative, oriented, and tranquil Anesthetic Plan: General Monitoring Plan: Standard Monitors Recovery Plan: PACU
[2016-09-10] MEDS ORDERED: *HR* FentaNYL (PF) 100 MCG/2 ML VIAL ONE (14:41)
[2016-09-10] MEDS ORDERED: Indomethacin 50 MG SUPP.RECT RC ONE (14:59)
[2016-09-10] MEDS: clonazePAM 0.5 MG TABLET PO SCH (20:48)
[2016-09-11] MEDS: Insulin LISPRO 300 UNITS/3 ML VIAL SQ SCH ×2 (00:02→06:17)
[2016-09-11] MEDS: *HR* OxyCODONE/APAP 5/325 TABLET PO PRN (01:12)
[2016-09-11 08:04] VITALS: BP 125/69
[2016-09-11] MEDS: Sucralfate 1 GM TABLET PO SCH (08:20)
[2016-09-11] MEDS: *HR* Metformin 500 MG TABLET PO SCH (08:20)
[2016-09-11] MEDS: Aspirin Enteric Coated 81 MG Tablet PO SCH (08:21)
[2016-09-11] MEDS: Pregabalin 50 MG CAPSULE PO SCH (08:21)
[2016-09-11] MEDS: Insulin DETEMIR 100 UNIT/ML X5UNITS SQ SCH (08:30)
[2016-09-11] MEDS ORDERED: Lidocaine -MPF 4% 5 ML AMPUL TP ONE (10:07)
[2016-09-11] MEDS ORDERED: *HR* Propofol 200 MG/20 ML VIAL IVP ONE (10:07)
[2016-09-11] MEDS ORDERED: Lidocaine -MPF 2% 5 ML VIAL INFILT ONE (10:07)
[2016-09-11] MEDS ORDERED: Ondansetron 4 MG/2 ML VIAL IVP ONE (10:07)
== END 2016-09-11 10:08 | disposition home or self-care (01) ==
LOC: EMEROO 13:33 → 3ANU 13:33
PROVIDERS: ADMIT Surgery; ATTEND Surgery
PROC: ENDOEBX (2016-09-09 09:30)
PROC: ENDOCBX (2016-09-09 09:30)

== ENCOUNTER 2016-09-29 12:21 | Observation (INO) ==
[2016-09-29] MEDS ORDERED: 0.9 % Sodium Chloride 1,000 ML IVC ONE (12:47)
--- NOTE | 2016-09-29 12:47 | Emergency Department Note ---
START Narrative - START START: For this encounter, I have reviewed the resident, TELEPHONE ADVICE NURSE, or PA documentation, treatment plan, and medical decision making; and I have had face to face time with this patient. 50-year-old female presents with concerns of chest pain, palpitations, weakness. Patient states that she has felt palpitations and chest pain over the past 6 hours prior to arrival. Patient notes that she had weakness in her left upper and left lower extremity upon starting work this morning. 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 Patient reports a left-sided chest pain which radiates to her left jaw and left upper extremity. On initial evaluation the patient had an EKG which showed atrial fibrillation with a rate of 122 without evidence of STEMI. Lungs were clear to auscultation bilaterally. Neurologic exam showed weakness to the left upper showed an left lower extremity with a strength of 3/ 5 in both. Patient states that this weakness is new. She is not a candidate for TPA as she reports a history of intracranial hemorrhage in the past. Patient was given IV fluids and converted spontaneously to a normal sinus rhythm with a rate of [address] of the head showed a possible CVA in the adelia, [facility] neurologists recommended obtaining a CTA of the head and neck. Patient had also reported having left lower extremity swelling within the past week and is not taking anticoagulation. Patient is at risk for PE. Patient had an elevated d-dimer. CTA of chest did not reveal acute PE or other infiltrate or surgical etiology. Initial troponin was negative. Patient given aspirin in the emergency department after bedside swallow evaluation. Patient will be admitted to the hospital for further evaluation of her chest pain as well as possible CVA.
--- NOTE | 2016-09-29 12:55 | Emergency Department Note ---
Disposition Clinical Impression: Atrial fibrillation with rapid ventricular response CVA (cerebral vascular accident) Qualifiers: CVA mechanism: unspecified Qualified Code(s): I63.9 - Cerebral infarction, unspecified Chest pain Qualifiers: Chest pain type: unspecified Qualified Code(s): R07.9 - Chest pain, unspecified Disposition: Admitted As Inpatient Condition: Good Time of Disposition: 16:41 Neuro HPI - General Chief Complaint: ED Chest Pain Stated Complaint: Chest Pain Time Seen by Provider: 09/29/16 12:25 Source: patient Mode of arrival: ambulatory Limitations: no limitations Nursing Notes Reviewed: Yes Vital Signs Reviewed: Yes - History of Present Illness HPI Narrative: 50-year-old female history of paroxysmal atrial fibrillation, TIAs, blood clots , CAD, HTN, DM presents to the ED with multiple complaints. 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 This was her last known well. She reports a history of TIAs as well as a hemorrhagic bleeding. Last time she was here she had to be transferred to [place] for the head bleed. Also around that time she began to feel her heart racing as if those in atrial fibrillation. She used to take Flecinide and Xarelto but has been off of it for over a year she reports due to bleeding. She reports palpitations and chest discomfort with left arm weakness. She also notes yesterday she has been having multiple episodes of bowel and bladder incontinence, or similar symptoms when she had her TIA in the past she reports. Stroke alert was called 1247. Patient exhibits some left-sided weakness. Left arm drift that hit the bed. EKG performed shows atrial fibrillation with rapid ventricular response 122 bpm. Patient has a head bleed she would be transferred. Due to her history of the head bleed she is not a candidate for tPA. If there is no believe she will be appropriate for admission here for stroke and chest pain workup. Onset of Symptoms Date: 09/29/16 Onset of Symptoms Time: 07:00 Symptom Onset Unknown: No Location: left face, left arm, left leg, other (INCONTINENCE) - Related Data Home Medications: Home Medications Medication Instructions Recorded Confirmed Albuterol Sulfate [Proair 2 puff IH Q4H PRN 10/26/15 09/29/16 Respiclick] Aspirin [Adult Low Dose Aspirin EC] 81 mg PO DAILY 10/26/15 09/29/16 Etonogestrel [Nexplanon] 68 mg SQ AD 10/26/15 09/29/16 Insulin ASPART [Novolog Flexpen] 2 - 10 unit SQ TID 10/26/15 09/29/16 Lisinopril [Zestril] 5 mg PO DAILY 10/26/15 09/29/16 Metformin [Glucophage] 1,000 mg PO BIDWM 10/26/15 09/29/16 Omeprazole [PriLOSEC] 40 mg PO DAILY 10/26/15 09/29/16 Pregabalin [Lyrica] 100 mg PO BID 10/26/15 09/29/16 Sertraline [Zoloft] 150 mg PO DAILY 10/26/15 09/29/16 Trazodone HCl 50 - 100 mg PO HS PRN 10/26/15 09/29/16 Previous Rx's Medication Instructions Recorded Atorvastatin Calcium [Lipitor] 20 mg PO DAILY #0 04/17/16 Ibuprofen [Motrin] 600 mg PO Q6-8H PRN #30 tab 05/21/16 ClonazePAM [Klonopin] 0.5 mg PO HS #30 tablet 08/19/16 Insulin Glargine,Hum.rec.anlog 50 unit SQ BID 30 Days 08/19/16 [Lantus Solostar] Metoprolol [Lopressor] 25 mg PO BID 30 Days 08/19/16 Dicyclomine [Bentyl] 10 mg PO QID PRN #20 capsule 08/29/16 Ondansetron ODT [Zofran ODT] 4 mg SL Q6HR #10 tab.rapdis 09/12/16 Allergies/Adverse Reactions: Allergies Allergy/AdvReac Type Severity Reaction Status Date / Time No Known Allergies Allergy Verified 09/12/16 14:31 All systems ED: reviewed and negative except as stated. Constitutional: Denies: fever, chills Cardiovascular: Reports: chest pain, palpitations Respiratory: Denies: dyspnea Gastrointestinal: Reports: diarrhea (Watery). Denies: abdominal pain, nausea, vomiting Genitourinary: Reports: other (Incontinence) Musculoskeletal: Denies: back pain Integumentary: Denies: rash, abrasion Neurological: Reports: weakness Past Medical History - Past Medical History Attestation: Yes The following information was validated with the patient. Source: patient Medical history: Reports: atrial fibrillation, COPD, CVA, diabetes, hyperlipidemia, hypertension, myocardial infarction Surgical history: Reports: , cholecystectomy Psychiatric history: Reports: anxiety, depression REAL ESTATE BROKER history: Reports: no REAL ESTATE BROKER history - Social History Smoking Status: Never smoker Smokeless Tobacco Status: No Alcohol use: Reports: none Drug use: Reports: none Physical Exam - General Limitations: no limitations General appearance: alert, in no apparent distress - Head Head exam: atraumatic, normocephalic, normal inspection - Eye Eye exam: Present: normal appearance, PERRL, EOMI - ENT ENT exam: normal exam, normal oropharynx, mucous membranes moist - Neck Neck exam: Present: normal inspection, full ROM, trachea midline - Chest Chest inspection: Present: normal inspection, tenderness. Absent: symmetric chest wall rise - Respiratory Respiratory exam: Present: normal lung sounds bilaterally. Absent: respiratory distress, wheezes - Cardiovascular Cardiovascular exam: Present: tachycardia, irregular rhythm, normal heart sounds. Absent: systolic murmur, diastolic murmur - Abdominal Exam Abdominal exam: Present: soft, Non-Tender, normal bowel sounds. Absent: tenderness, distention, guarding, rebound, rigidity - Extremities Exam Extremities exam: Present: normal inspection, full ROM, normal capillary refill. Absent: tenderness, pedal edema, calf tenderness - Expanded Lower Extremity Exam Neurovascular/Tendon exam: Present: normal capillary refill. Absent: pulse deficit - Neurological Exam Neurological exam: Present: alert, oriented X3 - Expanded Neurological Exam Patient oriented to: Present: person, place, time Speech: Present: fluid speech Cranial nerves: EOM function (II, III, IV, ): Normal, facial sensation (V): Normal, facial palsy (VII): Normal, gag reflex (IX): Normal, spinal accessory function (XI): Normal, tongue deviation (XII): Normal Cerebellar function: finger to nose: Normal, heel to adams: Normal Motor strength - LUE: 4/5 Motor strength - RUE: 5/5 Motor strength - LLE: 3/5 Motor strength - RLE: 5/5 Upper motor neuron exam: pronator drift: Present on left - Psychiatric Psychiatric exam: Present: normal affect, normal mood - Skin Skin exam: Present: warm, dry, intact, normal color Course Course Narrative: 50-year-old female presents ED with left sided weakness chest pain found to be in atrial fibrillation with rapid ventricular response. Stroke alert was called and patient taken to CT. she has left upper and lower extremity weakness without left arm drift. She is alert and oriented to person place and time. She reports pleuritic chest pain and palpitations that started around this morning. Believes symptoms began around 0700 today when at work. We do a CVA workup, troponin, D dimer. Disposition will be dependent on CT scan. - Reevaluation(s) Reevaluation #1: Radiologist reports equivocal adelia infarct. No hemorrhage on CT. Stroke alert was cancelled and [facility] neurology called. Time: 13:29 Reevaluation #2: Spontaneous conversion to sinus rhythm. EKG performed at 1348 to sinus rhythm with supraventricular permature complexes. Time: 13:50 Reevaluation #3: Normal CTA head and neck called by Dr. Medraon, radiologist. Troponin and labs are otherwise unremarkable. CTA chest is negative for PE with elevated d-dimer 554. She continues to have left arm weakness with drift. Chest pain improved with heart rate control. Ok to admit for CVA workup and afib c RVR. History of Flecinide in the past she reports. Time: 14:55 - Consultations Consultation #1: Dr. Contreras from [facility] called, recommends CTA head and neck. NIH score 3. History of hemorrhage. Not a candidate for tPA due to contraindications and outside time window. Time: 13:29 Consultation #2: Spoke with dana Damon to admit of CVA workup and Afib c RVR. Negative troponin. Chest pain resolved with conversion to sinus rhythm. Time: 16:35 Vital Signs Temperature 98.2 F 09/29/16 12:25 Pulse Rate 129 09/29/16 12:25 Respiratory Rate 16 09/29/16 12:25 Blood Pressure 138/109 09/29/16 12:25 O2 Sat by Pulse Oximetry 99 09/29/16 12:25 Temperature 97.8 F 09/29/16 17:35 Pulse Rate 73 09/29/16 17:35 Respiratory Rate 18 09/29/16 17:35 Blood Pressure 144/95 09/29/16 17:35 O2 Sat by Pulse Oximetry 98 09/29/16 17:35 Oxygen Delivery Oxygen Delivery Room Air Neuro Symptoms/Deficit - Differential Diagnosis Likely: cerebrovascular accident - Medical Records Medical records reviewed: Yes I reviewed the patient's medical records. - Lab Data Lab results reviewed: Yes I reviewed the patient's lab results. Result diagrams: 09/29/16 12:56 09/29/16 12:56 Lab Results 09/29/16 09/29/16 09/29/16 Range/Units 12:49 12:56 12:56 WBC 8.1 (4.3-11.1) K/mcL RBC 4.75 (3.82-4.97) M/mcL Hgb 11.5 (11.5-15.4) g/dL Hct 36.0 (35.3-44.9) % MCV 75.8 L (83.0-100.0) fL MCH 24.2 L (28.0-33.3) pg MCHC 31.9 (31.6-35.5) g/dL RDW 15.9 H (11.5-14.5) % Plt Count 277 (140-400) K/mcL MPV 10.0 (9.4-12.4) fL Immature Gran % 0.2 (0-4) % Seg Neutrophils % 70.4 % Lymphocytes % 21.9 % Monocytes % 5.3 % Eosinophils % 1.6 % Basophils % 0.6 % Neutrophils # 5.7 (1.6-8.9) K/mcL Lymphocytes # 1.8 (0.6-4.6) K/mcL Monocytes # 0.4 (0.0-1.3) K/mcL Eosinophils # 0.1 (0.0-0.6) K/mcL Basophils # 0.1 (0.0-0.2) K/mcL PT 10.2 (9.4-12.1) Seconds INR 1.0 APTT 27.9 (26.0-36.0) Seconds D-Dimer 554 H (0-500) ng/mLFEU Sodium (136-145) mEq/L Potassium (3.5-4.5) mEq/L Chloride (98-109) mEq/L Carbon Dioxide (19-29) mEq/L BUN (7-20) mg/dL Creatinine (0.57-1.11) mg/dL Est GFR ( Amer) (> 60) Est GFR (Non-Af Amer) (> 60) BUN/Creatinine Ratio (6-26) Glucose (70-99) mg/dL POC Glucose 262 H (58-89) Calculated Osmolality (280-300) Calcium (8.6-10.8) mg/dL Troponin I (0-0.03) ng/mL Blood Type Antibody Screen 09/29/16 09/29/16 09/29/16 Range/Units 12:56 12:56 12:56 WBC (4.3-11.1) K/mcL RBC (3.82-4.97) M/mcL Hgb (11.5-15.4) g/dL Hct (35.3-44.9) % MCV (83.0-100.0) fL MCH (28.0-33.3) pg MCHC (31.6-35.5) g/dL RDW (11.5-14.5) % Plt Count (140-400) K/mcL MPV (9.4-12.4) fL Immature Gran % (0-4) % Seg Neutrophils % % Lymphocytes % % Monocytes % % Eosinophils % % Basophils % % Neutrophils # (1.6-8.9) K/mcL Lymphocytes # (0.6-4.6) K/mcL Monocytes # (0.0-1.3) K/mcL Eosinophils # (0.0-0.6) K/mcL Basophils # (0.0-0.2) K/mcL PT (9.4-12.1) Seconds INR APTT (26.0-36.0) Seconds D-Dimer (0-500) ng/mLFEU Sodium 141 (136-145) mEq/L Potassium 3.0 L (3.5-4.5) mEq/L Chloride 107 (98-109) mEq/L Carbon Dioxide 21 (19-29) mEq/L BUN 9 (7-20) mg/dL Creatinine 0.85 (0.57-1.11) mg/dL Est GFR ( Amer) > 60 (> 60) Est GFR (Non-Af Amer) > 60 (> 60) BUN/Creatinine Ratio 11 (6-26) Glucose 284 H (70-99) mg/dL POC Glucose (58-89) Calculated Osmolality 301 H (280-300) Calcium 9.7 (8.6-10.8) mg/dL Troponin I 0.01 (0-0.03) ng/mL Blood Type A NEGATIVE Antibody Screen NEGATIVE - Radiology Data Radiology results reviewed: Yes I reviewed the patient's radiology results. Head CT 09/29/16 12:47 IMPRESSION: Equivocal findings. A single 3 mm focal area of decreased attenuation of the adelia is only seen on 1 slice and is likely wallerian degeneration. The remote possibility of an acute infarct cannot entirely be excluded but is considered less likely given the single slice distribution. Nonetheless if symptoms persist consider MRI examination. No acute hemorrhage The findings were sent to the Radiology Results Communication Center at 1:11 pm on 09/29/2016to be communicated to a licensed caregiver. Results discussed in great detail with the patient's clinician Dr. Higgins at 01:25 p.m. D/ / Alexis Turner MD / Alexis Turner MD Interpreting Provider: Alexis Turner MD Chest X-Ray 09/29/16 12:48 IMPRESSION: No acute abnormality. D/ / Ricardo Tanner MD / Ricardo Tanner MD Interpreting Provider: Ricardo Tanner MD Chest CTA 09/29/16 13:40 IMPRESSION: No evidence of pulmonary embolism or acute pulmonary abnormality. D/ / Liam Medina MD / Liam Medina MD Interpreting Provider: Liam Medina MD Head CTA 09/29/16 13:40 IMPRESSION: Unremarkable CTA of the head and neck. The results were called by Dr. Buck Medrano MD to Dr. Epi Green on 09/29/2016 at 14:55. D/ / Buck Medrano MD / Buck Medrano MD Interpreting Provider: Buck Medrano MD Neck CTA 09/29/16 13:40 IMPRESSION: Unremarkable CTA of the head and neck. The results were called by Dr. Buck Medrano MD to Dr. Epi Green on 09/29/2016 at 14:55. D/ / Buck Medrano MD / Buck Medrano MD Interpreting Provider: Buck Medrano MD - EKG Data EKG attestation: Yes I reviewed and interpreted this EKG. EKG results narrative: EKG performed 1231 does atrial fibrillation with rapid ventricular response 122 bpm. Repeat EKG performed 1348 shows sinus rhythm 68 bpm with supra ventricular premature complexes normal sinus rhythm, no ST elevations or depressions, T-wave inversion in lead III and V1 which are benign, intervals are within normal limits TX interval 144 QRS 95 QT QTC 413 430. NIH Stroke Scale - Level of Consciousness LOC: Alert - LOC Questions LOC Questions: Answers both correctly - LOC Commands LOC Commands: Performs both correctly - Best Gaze Best Gaze: Normal - Visual Visual: No visual loss - Facial Palsy Facial Palsy: Normal - Motor Arms Motor Arm-Left: Some effort against gravity, limb drifts to bed Motor Arm-Right: No drift for 10 seconds - Motor Legs Motor Leg-Left: No drift for 5 seconds Motor Leg-Right: No drift for 5 seconds - Limb Ataxia Limb Ataxia: Present in ONE limb - Sensory Sensory: Normal - Best Language Best Language: No aphasia - Dysarthria Dysarthria: Normal - Extinction and Inattention Extinction and Inattention: Normal - NIHSS Total Score NIHSS Total Score: 3 TPA Checklist - Source Information Source: Patient - Eligibilty for IV tPA 1. LKW equal to or less than 4.5 hours be before treatment: No - LKW: 3-4.5 hrs Add. Contraindications Patient/family understanding: The patient/family members have been counseled and understood the risk, benefit , and alternatives of treatment.
[2016-09-29 13:08] LABS: Basophils # 0.1 K/mcL (0.0-0.2); Basophils % 0.6 %; Eosinophils # 0.1 K/mcL (0.0-0.6); Eosinophils % 1.6 %; Hemoglobin 11.5 g/dL (11.5-15.4); Immature Granulocytes % 0.2 % (0-4); Lymphocytes # 1.8 K/mcL (0.6-4.6); Lymphocytes % 21.9 %; Mean Corpuscular HGB Conc 31.9 g/dL (31.6-35.5); Mean Corpuscular Hemoglobin 24.2 pg (28.0-33.3); Mean Corpuscular Volume 75.8 fL (83.0-100.0); Monocytes # 0.4 K/mcL (0.0-1.3); Monocytes % 5.3 %; Neutrophils # 5.7 K/mcL (1.6-8.9); Platelet Count 277 K/mcL (140-400); Red Blood Count 4.75 M/mcL (3.82-4.97); Red Cell Distribution Width 15.9 % (11.5-14.5); Segmented Neutrophils % 70.4 %
[2016-09-29 13:13] LABS: Prothrombin Time 10.2 Seconds (9.4-12.1)
[2016-09-29 13:16] LABS: Activated Partial Thrombo Time 27.9 Seconds (26.0-36.0)
[2016-09-29 13:28] LABS: BUN/Creatinine Ratio 11 (6-26); Blood Urea Nitrogen 9 mg/dL (7-20); Calcium 9.7 mg/dL (8.6-10.8); Carbon Dioxide 21 mEq/L (19-29); Chloride 107 mEq/L (98-109); Glucose 284 mg/dL (70-99); Osmolality,Calculated 301 (280-300); Sodium 141 mEq/L (136-145); eGFR For African Americans > 60 (> 60); eGFR For Non-African Americans > 60 (> 60)
[2016-09-29] MEDS ORDERED: Aspirin 81 MG TAB.CHEW PO ONE (14:19)
[2016-09-29 16:51] LABS: Bilirubin,Urine Negative (Negative); Blood,Urine Large (Negative); Clarity,Urine Clear (Clear); Color,Urine Yellow (Yellow); Glucose,Urine (UA) 100 mg/dL (Normal); Ketones,Urine Negative (Negative); Leukocyte Esterase,Urine Negative (Negative); Nitrite,Urine Negative (Negative); Protein,Urine Negative (Neg-Trace); Specific Gravity,Urine > 1.030 (1.010-1.025); Urobilinogen,Urine Normal (Normal)
[2016-09-29 16:53] LABS: Bacteria,Urine None Seen per hpf (None-Few); Hyaline Casts,Urine None Seen per lpf (None-Few); RBC,Urine 15-30 per hpf (0-3); Squamous Epithelial Cell,Urine Many per lpf (None-Few); WBC,Urine 0-3 per hpf (0-3)
[2016-09-29] MEDS ORDERED: Naloxone 0.4 MG/ML INJ IVP PRN (18:22)
[2016-09-29] MEDS ORDERED: Ondansetron 4 MG/2 ML VIAL IVP PRN (18:22)
[2016-09-29] MEDS ORDERED: Acetaminophen 325 MG TABLET PO PRN (18:22)
[2016-09-29] MEDS ORDERED: D5% in Water 1,000 ML IV PRN (18:29)
[2016-09-29] MEDS ORDERED: Dextrose Gel 15 GM PO PRN ×2 (18:29)
[2016-09-29] MEDS ORDERED: *HR* Dextrose 50 % in Water (Syg) 50 ML SYRINGE IVP PRN (18:29)
[2016-09-29] MEDS ORDERED: 0.9 % Sodium Chloride 1,000 ML IVC SCH (18:30)
--- NOTE | 2016-09-29 19:14 | Internal Med History&Physical ---
Date of Encounter: 09/29/16 Time of Encounter: 19:10 Assessment and Plan (1) Weakness Current visit: No Status: Chronic Left sided weakness and heaviness in association with chest pain and a fib with RVR. 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 CTA head/neck without acute abnormalities. Patient not anticoagulated because of history of hemorrhagic stroke. - MRI in AM - Neurology consulted, appreciate assistance. (2) Chest pain Current visit: No Status: Acute Chest pain seems related to a fib with RVR, currently chest pain free. EKG without ischemic changes. - Trend troponin - Keep patient chest pain free - Continue home ASA Qualifiers: Chest pain type: unspecified Qualified Code(s): R07.9 - Chest pain, unspecified (3) Atrial fibrillation with rapid ventricular response Current visit: Yes Status: Acute In setting of dehydration from diarrhea. Converted back to NSR in ER. - Gentle IV fluids - Continue home metoprolol (4) Diabetes mellitus, type II, insulin dependent Current visit: No Status: Chronic Continue home insulin regimen. Code(s): E11.9 - Type 2 diabetes mellitus without complications; Z79.4 - alf (current) use of insulin Internal Medicine - H&P: HPI Chief complaint: Chest pain, left sided weakness Admitted From: Emergency Dept Plans for Post Hospital Care: Home History of present illness: Ms. Jacome is a 50 year old female with history of atrial fibrillation, CVA ( hemorrhagic stroke) with residual left sided deficits, and CAD who presented to the ER this afternoon because of chest pain and left sided weakness which were present when she woke up this morning. She notes that yesterday morning she had severe diarrhea which resolved after she took imodium. She stayed home from work yesterday and generally felt poorly throughout the day. This morning she woke up with substernal 10/10 chest pain radiating to the left jaw, and noticed that her left arm and leg felt very "heavy". She felt like her left are was "swollen". She presented to the ER for evaluation and was found to be in atrial fibrillation with RVR. She notes that in the past she has had similar chest pressure radiating to her jaw while she is in atrial fibrillation. In the ER she spontaneously converted to NSR and her chest pain resolved. She was short of breath with the chest pain as well. Her arm and leg still feel slightly heavy but better than they did earlier. She is unsure if they are actually weaker than baseline, as she does have residual left sided weakness after her hemorrhagic stroke two years ago. Past Med Surg Social Fam HX - Past Medical History Medical history: atrial fibrillation, COPD, CVA, diabetes, hyperlipidemia, hypertension, myocardial infarction Psychiatric history: anxiety, depression - Past Surgical History Surgical History: , cholecystectomy - Social History Smoking Status: Never smoker Smokeless Tobacco Status: No Alcohol use: none Drug use: none - Family History Mother Living Status: Hx Family Cardiac Disorders: Yes Hx Family Respiratory Disorders: Yes (copd) Hx Family Cancer: Yes (lung cancer) Hx Family Endocrine Disorder: Yes (DM type II) Father Adopted: [place]: Devendra Bernabe Age: 68 Family Member Ethnicity: Non- Living Status: Age at : 68 Cause of : Stomach cancer Hx Family Cardiac Disorders: Yes Hx Family Cancer: Yes (stomach cancer) Hx Family Endocrine Disorder: Yes (DM) Internal Medicine - H&P: Meds Albuterol Sulfate [Proair Respiclick] 2 puff IH Q4H PRN 10/26/15 [History] Aspirin [Adult Low Dose Aspirin EC] 81 mg PO DAILY 10/26/15 [History] Etonogestrel [Nexplanon] 68 mg SQ AD 10/26/15 [History] Insulin ASPART [Novolog Flexpen] 2 - 10 unit SQ TID 10/26/15 [History] Lisinopril [Zestril] 5 mg PO DAILY 10/26/15 [History] Metformin [Glucophage] 1,000 mg PO BIDWM 10/26/15 [History] Omeprazole [PriLOSEC] 40 mg PO DAILY 10/26/15 [History] Pregabalin [Lyrica] 100 mg PO BID 10/26/15 [History] Sertraline [Zoloft] 150 mg PO DAILY 10/26/15 [History] Trazodone HCl 50 - 100 mg PO HS PRN 10/26/15 [History] Atorvastatin Calcium [Lipitor] 20 mg PO DAILY #0 04/17/16 [Rx] Ibuprofen [Motrin] 600 mg PO Q6-8H PRN #30 tab 05/21/16 [Rx] ClonazePAM [Klonopin] 0.5 mg PO HS #30 tablet 08/19/16 [Rx] Insulin Glargine,Hum.rec.anlog [Lantus Solostar] 50 unit SQ BID 30 Days [Rx] Metoprolol [Lopressor] 25 mg PO BID 30 Days 08/19/16 [Rx] Dicyclomine [Bentyl] 10 mg PO QID PRN #20 capsule 08/29/16 [Rx] Ondansetron ODT [Zofran ODT] 4 mg SL Q6HR #10 tab.rapdis 09/12/16 [Rx] Allergies No Known Allergies Allergy (Verified 09/12/16 14:31) All Systems PM: A 10-system review of systems was performed and is negative for pertinent findings except as documented above in the HPI. - Constitutional Vitals: Temp Pulse Resp BP Pulse Ox 97.8 F 73 18 144/95 98 09/29/16 17:35 09/29/16 17:35 09/29/16 17:35 09/29/16 17:35 09/29/16 17:35 General appearance: Present: A&O X 3 Exam: Patient in no acute distress, resting comfortably in bed. - Head Head exam: Present: atraumatic - Eye Eye exam: Present: EOMI, sclera anicteric - ENT ENT exam: Present: mucous membranes moist - Neck Neck exam general surgery: Present: supple - Respiratory Respiratory exam: Present: CTAB - Cardiovascular Cardiovascular exam: Present: RRR. Absent: diastolic murmur, gallop, rubs, systolic murmur - GI/Abdominal GI/Abdominal exam: Present: normal bowel sounds, soft. 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 - Psychiatric Psychiatric exam: Present: normal affect, normal mood - Skin Skin exam: Absent: rash Internal Med - H&P Results - Labs CBC & Chem 7: 09/29/16 12:56 09/29/16 12:56 Labs: Cardiac Enzymes 09/29/16 Range/Units 18:37 Troponin I 0.01 (0-0.03) ng/mL Urine 03/18/17 Range/Units 16:41 Urine Color Yellow (Yellow) Urine Clarity Clear (Clear) Urine pH 6.0 (5.0-8.0) pH Units Ur Specific [place] > 1.030 H (1.010-1.025) Urine Protein Negative (Neg-Trace) mg/dL Urine Glucose (UA) 100 H (Normal) mg/dL
[2016-09-29] MEDS: clonazePAM 0.5 MG TABLET PO SCH (20:34)
[2016-09-29] MEDS: Pregabalin 50 MG CAPSULE PO SCH (20:34)
[2016-09-29] MEDS: Insulin LISPRO 300 UNITS/3 ML VIAL SQ SCH (22:33)
[2016-09-29] MEDS: Insulin DETEMIR 100 UNIT/ML X5UNITS SQ SCH (22:34)
[2016-09-29] MEDS ORDERED: *HR* Morphine 2 MG/ML SYRINGE IVP PRN (23:00)
[2016-09-29] MEDS ORDERED: *HR* OxyCODONE Immed Rel 15 MG TABLET PO PRN (23:00)
[2016-09-29] MEDS ORDERED: Pantoprazole 40 MG VIAL IVP ONE (23:00)
[2016-09-29] MEDS ORDERED: GI Cocktail 40 ML EACH PO ONE (23:00)
[2016-09-29] MEDS ORDERED: Nitroglycerin 0.4 MG TAB.SUBL SL PRN (23:02)
[2016-09-30 00:47] LABS: Basophils % 0.5 %; Eosinophils # 0.2 K/mcL (0.0-0.6); Eosinophils % 2.6 %; Immature Granulocytes % 0.2 % (0-4); Lymphocytes # 1.9 K/mcL (0.6-4.6); Mean Corpuscular Hemoglobin 24.7 pg (28.0-33.3); Mean Corpuscular Volume 77.3 fL (83.0-100.0); Mean Platelet Volume 9.8 fL (9.4-12.4); Monocytes # 0.3 K/mcL (0.0-1.3); Monocytes % 4.8 %; Neutrophils # 4.2 K/mcL (1.6-8.9); Platelet Count 220 K/mcL (140-400); Red Blood Count 3.88 M/mcL (3.82-4.97); Red Cell Distribution Width 16.1 % (11.5-14.5); Segmented Neutrophils % 62.9 %
[2016-09-30 01:06] LABS: Hemoglobin 9.6 g/dL (11.5-15.4)
[2016-09-30 01:12] LABS: BUN/Creatinine Ratio 13 (6-26); Blood Urea Nitrogen 9 mg/dL (7-20); Carbon Dioxide 22 mEq/L (19-29); Chloride 112 mEq/L (98-109); Glucose 240 mg/dL (70-99); Osmolality,Calculated 301 (280-300); Potassium 3.3 mEq/L (3.5-4.5); Sodium 142 mEq/L (136-145); eGFR For African Americans > 60 (> 60); eGFR For Non-African Americans > 60 (> 60)
[2016-09-30 01:14] LABS: Calcium 8.1 mg/dL (8.6-10.8)
[2016-09-30 07:54] LABS: Magnesium 1.4 mg/dL (1.6-2.6)
[2016-09-30] MEDS: Insulin DETEMIR 100 UNIT/ML X5UNITS SQ SCH ×2 (10:22→20:06)
[2016-09-30] MEDS: Pregabalin 50 MG CAPSULE PO SCH ×2 (10:22→20:06)
[2016-09-30] MEDS: Aspirin Enteric Coated 81 MG Tablet PO SCH (10:22)
[2016-09-30] MEDS: Insulin LISPRO 300 UNITS/3 ML VIAL SQ SCH ×4 (10:25→23:38)
--- NOTE | 2016-09-30 10:54 | Internal Med Progress Note ---
Date of Encounter: 09/30/16 Time of Encounter: 10:53 - Assessment and plan (1) CVA (cerebral vascular accident) Current Visit: Yes Status: Acute Assessment and plan: possible new ischemic CVA with left sided weakness more pronounced on the upper extremity, the patient presented with an episode of atrial fibrillation with RVR She used to be on Xarelto up until one year ago where she started having problems with vaginal bleeding Prefers to be started on Lovenox and Coumadin at the moment MRI of the brain ordered CT scan of the neck did not show any carotid stenosis Neurology recommendations appreciated Continue aspirin Qualifiers: Qualified Code(s): I63.9 - Cerebral infarction, unspecified (2) Atrial fibrillation with rapid ventricular response Current Visit: Yes Status: Acute Assessment and plan: possible paroxysmal a fib Now in sinus rhythm Cardizem drip was stopped Continue metoprolol Start Coumadin and Lovenox (3) Hyperlipemia Current Visit: No Status: Chronic Assessment and plan: simvastatin Qualifiers: Hyperlipidemia type: unspecified Qualified Code(s): E78.5 - Hyperlipidemia , unspecified (4) Diabetes mellitus, type II, insulin dependent Current Visit: No Status: Chronic Assessment and plan: ISS (5) HTN (hypertension) Current Visit: No Status: Chronic Assessment and plan: permissive HTN Qualifiers: Hypertension type: essential hypertension Qualified Code(s): I10 - Essential (primary) hypertension (6) Hypokalemia Current Visit: No Status: Acute Assessment and plan: replete - Subjective Interval history: [facility] patient complains of increased weakness on the left arm and leg, no headaches, no fever, no abdominal pain no palpitations or dysuria - Constitutional Vitals: Temp Pulse Resp BP Pulse Ox 97.8 F 61 18 146/81 97 09/30/16 05:06 09/30/16 05:06 09/30/16 05:06 09/30/16 05:06 09/30/16 08:00 General appearance: Present: A&O X 3 - Head Head exam: Present: atraumatic, normocephalic - Eye Eye exam: Present: PERRL, conjuntiva pink, sclera anicteric Pupils: Present: PERRL - Neck Neck exam general surgery: Present: supple, trachea midline. Absent: lymphadenopathy - Respiratory Respiratory exam: Present: CTAB. Absent: accessory muscle use, rales, rhonchi, wheezes - Cardiovascular Cardiovascular exam: Present: RRR, +S1, +S2. Absent: diastolic murmur, gallop, rubs, systolic murmur - GI/Abdominal GI/Abdominal exam: Present: normal bowel sounds, soft, no peritoneal signs. Absent: distended, tenderness - Extremities Exam Extremities exam: Present: warm, radial pulses palpable and symetrical. Absent : calf tenderness, cyanotic, pedal edema - Neurological Exam Neurological exam: Present: CN II-XII intact, oriented X3. Absent: no focal deficits (left arm weakenss 4/5, mild left leg weakness), pronater drift, facial droop, speech deficit - Skin Skin exam: Present: dry, intact Internal Medicine: Result - Labs CBC & Chem 7: 09/30/16 00:41 09/30/16 00:41 Labs: Short CBC 09/30/16 Range/Units 00:41 WBC 6.7 (4.3-11.1) K/mcL Hgb 9.6 L D (11.5-15.4) g/dL Hct 30.0 L (35.3-44.9) % Plt Count 220 (140-400) K/mcL Neutrophils # 4.2 (1.6-8.9) K/mcL BMP 09/30/16 00:41 Sodium 142 Potassium 3.3 L Chloride 112 H Carbon Dioxide 22 BUN 9 Creatinine 0.68 Glucose 240 H Calcium 8.1 L D Cardiac Enzymes 09/29/16 09/30/16 09/30/16 Range/Units 18:37 00:41 07:48 Troponin I 0.01 0.01 0.00 (0-0.03) ng/mL Urine 09/29/16 Range/Units 16:41 Urine Color Yellow (Yellow) Urine Clarity Clear (Clear) Urine pH 6.0 (5.0-8.0) pH Units Ur Specific [place] > 1.030 H (1.010-1.025) Urine Protein Negative (Neg-Trace) mg/dL Urine Glucose (UA) 100 H (Normal) mg/dL - ABG Interpretation ABG results: PT/INR, D-dimer PT 10.2 Seconds (9.4-12.1) 09/29/16 12:56 D-Dimer 554 ng/mLFEU (0-500) H 09/29/16 12:56 Consult Discharge Plan - Plan Referrals: Joanne Paez MD [Primary Care Provider] -
[2016-09-30] MEDS: *HR* Enoxaparin 100 MG/ML SYRINGE SQ SCH ×2 (12:05→17:36)
--- NOTE | 2016-09-30 12:59 | Electrocardiograph Report ---
[address] [address] Test Date: 2016-09-29 Pat Name: Christie Jacome Department: 105 Room: [facility] Gender: F Youth Liaison Officer: : 1965 Requested By: Regan Browning Order Number: [id number] Reading MD: Agueda Donald Measurements Intervals [place] Rate: 122 P: NE: 0 QRS: 24 QRSD: 95 T: 26 QT: 364 QTc: 436 Interpretive Statements ATRIAL FIBRILLATION WITH RAPID VENTRICULAR RESPONSE NONSPECIFIC ST \T\ T-WAVE ABNORMALITY ABNORMAL RHYTHM ECG Electronically Signed On 09-30-2016 12:57:56 EDT by Agueda Donald
--- NOTE | 2016-09-30 13:01 | Electrocardiograph Report ---
[place] [address] Test Date: 2016-09-29 Pat Name: Christie Jacome Department: 105 Room: [facility] Gender: F Logistics Specialist: : 1965 Requested By: Marco Antonio Higgins Order Number: [id number] Reading MD: Agueda Donald Measurements Intervals [place] Rate: 68 P: 33 [place]: 144 QRS: 19 QRSD: 95 T: 11 QT: 413 QTc: 430 Interpretive Statements SINUS RHYTHM WITH OCCASIONAL SUPRAVENTRICULAR PREMATURE COMPLEXES NONSPECIFIC ST ABNORMALITIES Electronically Signed On 09-30-2016 12:59:38 EDT by Agueda Donald
--- NOTE | 2016-09-30 13:12 | Electrocardiograph Report ---
[place] [address] Test Date: 2016-09-29 Pat Name: Christie Jacome Department: 111 Room: [facility] Gender: F Racking Technician: : 1965 Requested By: Regan Browning Order Number: [id number] Reading MD: Marco Antonio Brooks Measurements Intervals [place] Rate: 65 P: 54 [place]: 159 QRS: 49 QRSD: 98 T: 34 QT: 425 QTc: 437 Interpretive Statements SINUS RHYTHM MINIMAL ST DEPRESSION Electronically Signed On 09-30-2016 13:11:09 EDT by Marco Antonio Brooks
--- NOTE | 2016-09-30 13:31 | Neurology - Consult Note ---
Date of Encounter: 09/30/16 Time of Encounter: 13:23 Assessment and Plan (1) CVA (cerebral vascular accident) Current Visit: Yes Status: Acute Patient is a 50 year old woman with PMH significant for HTN, DM, obesity, PAF and history of CVA who developed acute onset of worsening of left sided weakness , without speech difficulty and mental status change. Does have history of Paroxysmal atrial fibrillation and had been on Xarelto until about a little more than one year ago when it was discontinued due to possible small cerebral hemorrhage at the left frontal region. Due to the small size of the possible hemorrhage it was unclear what was the exact etiolog of the reported cerebral hemorrhage. Current neurological examination is somewhat difficult to explain with CT of head being normal and yet the weakness of left hand is quite profound. Will certainly obtain MRI of brain without contrast to confirm the diagnosis. Patient is certainly with elevated CHADs2 score of more than 3-4 therefor is a candidate for ad terminal makeup operator anticoagulation therapy. This is the case since she is rather young and has already had numerous hospital visits, due to occurrence of TIA and CVA and now she is having significant weakness to the left side. Patient understands the risk associated with the use of ad terminal makeup operator anticoagulation therapy especially with her history of small cerebral hemorrhage while on xarelto. It appeared that it was already discussed at the time of the cerebral hemorrhage that she would be considered a different anticoagulation agents, with which she has never been properly followed up. Agree with initiation of anticoagulation therapy in the form of coumadin with lovenox bridge. Once started on coumadin, would recommend discontinuation of Aspirin to reduce risk of bleeding. Patient already had CTA of neck and head, which showed no significant pathology. Please continue medical and supportive care. Qualifiers: CVA mechanism: unspecified Qualified Code(s): I63.9 - Cerebral infarction, unspecified History of Present Illness Chief complaint: left sided weakness HPI: Ms. Jacome is a 50 year old female with PMH significant for DM, history of paroxysmal atrial fibrillation, currently not anticoagulation therapy due to history of cerebral hemorrhage who developed acute onset of left sided weakness. This occurred in the morning on the day of admission. 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 Was seen in the ER and evaluated by stroke team at [facility] via telemedicine. Patient was determined not to be tPA candidate due to history of cerebral hemorrhage. Medical records showed that the patient had CT of head during 05/2015 showing presence of small cerebral hemorrhage at the left frontal region, without associated edema or mass effects. Patient was transferred to [facility] where her Xarelto was discontinued. She was eventually discharged from the hospital without any complications. The cause of the cerebral hemorrhage is unclear. Currently the patient still has significant weakness to the left side, arm more than leg. No significant speech difficulty. No mental status changes. Patient states that she would like to start taking blood thinner at this time, with understanding the risk of bleeding, especially risk of cerebral hemorrhage at this time. Past Med Surg Social Fam HX - Past Medical History Medical history: atrial fibrillation, COPD, CVA, diabetes, hyperlipidemia, hypertension, myocardial infarction Psychiatric history: anxiety, depression - Past Surgical History Surgical History: , cholecystectomy - Social History Smoking Status: Never smoker Smokeless Tobacco Status: No Alcohol use: none Drug use: none - Family History Mother Living Status: Hx Family Cardiac Disorders: Yes Hx Family Respiratory Disorders: Yes (copd) Hx Family Cancer: Yes (lung cancer) Hx Family Endocrine Disorder: Yes (DM type II) Father Adopted: [place]: Devendra Bernabe Age: 68 Family Member Ethnicity: Non- Living Status: Age at : 68 Cause of : Stomach cancer Hx Family Cardiac Disorders: Yes Hx Family Cancer: Yes (stomach cancer) Hx Family Endocrine Disorder: Yes (DM) Medications and Allergies Albuterol Sulfate [Proair Respiclick] 2 puff IH Q4H PRN 10/26/15 [History] Aspirin [Adult Low Dose Aspirin EC] 81 mg PO DAILY 10/26/15 [History] Etonogestrel [Nexplanon] 68 mg SQ AD 10/26/15 [History] Insulin ASPART [Novolog Flexpen] 2 - 10 unit SQ TID 10/26/15 [History] Lisinopril [Zestril] 5 mg PO DAILY 10/26/15 [History] Metformin [Glucophage] 1,000 mg PO BIDWM 10/26/15 [History] Omeprazole [PriLOSEC] 40 mg PO DAILY 10/26/15 [History] Pregabalin [Lyrica] 100 mg PO BID 10/26/15 [History] Sertraline [Zoloft] 150 mg PO DAILY 10/26/15 [History] Trazodone HCl 50 - 100 mg PO HS PRN 10/26/15 [History] Atorvastatin Calcium [Lipitor] 20 mg PO DAILY #0 04/17/16 [Rx] Ibuprofen [Motrin] 600 mg PO Q6-8H PRN #30 tab 05/21/16 [Rx] ClonazePAM [Klonopin] 0.5 mg PO HS #30 tablet 08/19/16 [Rx] Insulin Glargine,Hum.rec.anlog [Lantus Solostar] 50 unit SQ BID 30 Days [Rx] Metoprolol [Lopressor] 25 mg PO BID 30 Days 08/19/16 [Rx] Dicyclomine [Bentyl] 10 mg PO QID PRN #20 capsule 08/29/16 [Rx] Ondansetron ODT [Zofran ODT] 4 mg SL Q6HR #10 tab.rapdis 09/12/16 [Rx] Allergies No Known Allergies Allergy (Verified 09/12/16 14:31) All Systems: A 10-system review of systems was performed and is negative for pertinent findings except as documented above in the HPI. Physical Examination - Vital Signs Vital Signs: Initial Vital Signs Temp Pulse Resp BP Pulse Ox 98.2 F 129 16 138/109 99 09/29/16 12:25 09/29/16 12:25 09/29/16 12:25 09/29/16 12:25 09/29/16 12:25 - Constitutional General appearance: comfortable - Neurologic Sensorimotor examination: other (Grossly intact) Motor examination - right side: 5/5: deltoids, biceps, triceps, wrist flexion, wrist extension, proof operator, hip flexors, tibialis Anterior, quadriceps, toe extension (EHL), plantarflexion Motor examination - left side: 3/5: deltoids, biceps, triceps, wrist flexion, wrist extension, 4/5: hip flexors, proof operator, quadriceps, tibialis Anterior, toe extension (EHL), plantarflexion Detailed sensory examination: other (Grossly intact) Posture: other (None) Reflexes: Biceps: 1+, Triceps: 1+, Brachioradialis: 1+, Patella: 1+, Achilles: 1 + Mental Status Examination: awake, alert, oriented to person, oriented to place, oriented to time, follows commands appropriately, answers questions appropriately, no agnosia, no aphasia, no aproxia Cranial nerve examination: PERRL, EOMI, visual mustafa intact, corneal reflexes brisk symmetrically, sensory to face intact, mastication intact, no facial asymmetry is present, no dysarthria, hearing is intact symmetrically, soft palate elevates bilaterally upon phonation, gag reflex intact, flexes SCM and trapezius muscles symmetrically with full power, tongue protrudes midline, no atrophy or facial fasiculations present Results - Laboratory Findings CBC and BMP: 09/30/16 00:41 09/30/16 00:41 Abnormal lab findings: Abnormal lab results Hgb 9.6 g/dL (11.5-15.4) L D 09/30/16 00:41 Hct 30.0 % (35.3-44.9) L 09/30/16 00:41 MCV 77.3 fL (83.0-100.0) L 09/30/16 00:41 MCH 24.7 pg (28.0-33.3) L 09/30/16 00:41 RDW 16.1 % (11.5-14.5) H 09/30/16 00:41 D-Dimer 554 ng/mLFEU (0-500) H 09/29/16 12:56 Potassium 3.3 mEq/L (3.5-4.5) L 09/30/16 00:41 Chloride 112 mEq/L (98-109) H 09/30/16 00:41 Glucose 240 mg/dL (70-99) H 09/30/16 00:41 POC Glucose 232 (58-89) H 09/29/16 21:51 Calculated Osmolality 301 (280-300) H 09/30/16 00:41 Calcium 8.1 mg/dL (8.6-10.8) L D 09/30/16 00:41 Magnesium 1.4 mg/dL (1.6-2.6) L 09/30/16 00:41 Ur Specific [place] > 1.030 (1.010-1.025) H 09/29/16 16:41 Urine Glucose (UA) 100 mg/dL (Normal) H 09/29/16 16:41 Urine Blood Large (Negative) H 09/29/16 16:41 Urine Microscopic RBC 15-30 per hpf (0-3) H 09/29/16 16:41 Ur Squamous Epith Cells Many per lpf (None-Few) H 09/29/16 16:41 Consult Discharge Plan - Plan Referrals: Joanne Paez MD [Primary Care Provider] -
--- NOTE | 2016-09-30 17:05 | Carotid Imaging Report ---
Carotid Duplex Patient Name:Christie Jacome Order Number:[id number] Procedure Date:09/30/2016 Date:1965Age:50 yrs Gender:Female Rt.BP:153 / 80 mmHgHeart Rate: [facility] Room #: 2ne34 Inclinometer Tester:Greg Toledo RDCS Referring MD:Marychuy Gatica MD Reading MD:Alex Corey MD Primary Indications:Occlusion and stenosis of carotid artery without mention of cerebral infarction Risk Factors Yes/No Hypertension Yes Diabetes Yes Hypercholesterolemia Yes Hx of CVA Yes Family History Yes Impressions: Findings: Bilateral carotid system has nonstenotic plaque. Findings Carotid Duplex: Right: The right proximal common carotid artery has a PSV of 88 cm/s and a EDV of 17 cm/s. There is smooth heterogeneous plaque. The right mid common carotid artery has a PSV of 63 cm/s and a EDV of 15 cm/s. There is smooth heterogeneous plaque. The right distal common carotid artery has a PSV of 85 cm/s and a EDV of 23 cm/s. There is smooth heterogeneous plaque. The right bifurcation has a PSV of 73 cm/s and a EDV of 21 cm/s. The right proximal internal carotid artery has a PSV of 56 cm/s and a EDV of 20 cm/s. The right mid internal carotid artery has a PSV of 88 cm/s and a EDV of 29 cm/s. The right distal internal carotid artery has a PSV of 59 cm/s and a EDV of 22 cm/s. The right eca has a PSV of 56 cm/s and a EDV of 11 cm/s. The right vertebral artery has a PSV of 56 cm/s and a EDV of 21 cm/s. Left: The left proximal common carotid artery has a PSV of 77 cm/s and a EDV of 19 cm/s. There is smooth heterogeneous plaque. The left mid common carotid artery has a PSV of 66 cm/s and a EDV of 17 cm/s. There is smooth heterogeneous plaque. The left distal common carotid artery has a PSV of 59 cm/s and a EDV of 17 cm/s. There is smooth heterogeneous plaque. The left bifurcation has a PSV of 61 cm/s and a EDV of 14 cm/s. The left proximal internal carotid artery has a PSV of 61 cm/s and a EDV of 23 cm/s. The left mid internal carotid artery has a PSV of 63 cm/s and a EDV of 14 cm/s. The left distal internal carotid artery has a PSV of 107 cm/s and a EDV of 25 cm/s. The left eca has a PSV of 82 cm/s and a EDV of 13 cm/s. The left vertebral artery has a PSV of 39 cm/s and a EDV of 14 cm/s. Prior Study: No significant change compared to prior study dated: 10/27/2015. Carotid Results Right PSV EDV Assessment Proximal CCA 88 17 Non Stenotic Plaque Mid CCA 63 15 Non Stenotic Plaque Distal CCA 85 23 Non Stenotic Plaque Bifurcation 73 21 Normal Proximal ICA 56 20 Normal Mid ICA 88 29 Normal Distal ICA 59 22 Normal ECA 56 11 Normal Vertebral Artery 56 21 Normal Left PSV EDV Assessment Proximal CCA 77 19 Non Stenotic Plaque Mid CCA 66 17 Non Stenotic Plaque Distal CCA 59 17 Non Stenotic Plaque Bifurcation 61 14 Normal Proximal ICA 61 23 Normal Mid ICA 63 14 Normal Distal ICA 107 25 Normal ECA 82 13 Normal Vertebral Artery 39 14 Normal Ratio's Right ICA/CCA Ratio: 1.40 ICA/CCA Values: 88/63 Left ICA/CCA Ratio: 1.62 ICA/CCA Values: 107/66 Updated by Alex Corey MD on 09/30/2016 4:58:42 PM electronically signed on 09/30/2016 4:59:06 PM with status of Final
[2016-09-30] MEDS: *HR* Warfarin 5 MG TABLET PO SCH (17:35)
[2016-09-30] MEDS: clonazePAM 0.5 MG TABLET PO SCH (20:05)
[2016-10-01 04:14] LABS: Hematocrit 29.2 % (35.3-44.9); Hemoglobin 9.4 g/dL (11.5-15.4); Mean Corpuscular HGB Conc 32.2 g/dL (31.6-35.5); Mean Corpuscular Volume 77.7 fL (83.0-100.0); Mean Platelet Volume 10.4 fL (9.4-12.4); Platelet Count 208 K/mcL (140-400); Red Blood Count 3.76 M/mcL (3.82-4.97); Red Cell Distribution Width 15.8 % (11.5-14.5)
[2016-10-01 04:21] LABS: INR 0.9
[2016-10-01 04:31] LABS: BUN/Creatinine Ratio 17 (6-26); Blood Urea Nitrogen 11 mg/dL (7-20); Carbon Dioxide 22 mEq/L (19-29); Chloride 110 mEq/L (98-109); Glucose 171 mg/dL (70-99); Osmolality,Calculated 293 (280-300); Potassium 3.5 mEq/L (3.5-4.5); Sodium 140 mEq/L (136-145); eGFR For African Americans > 60 (> 60); eGFR For Non-African Americans > 60 (> 60)
[2016-10-01] MEDS: *HR* Enoxaparin 100 MG/ML SYRINGE SQ SCH ×2 (06:05→17:22)
[2016-10-01] MEDS: Insulin LISPRO 300 UNITS/3 ML VIAL SQ SCH ×4 (11:30→22:00)
[2016-10-01] MEDS: Insulin DETEMIR 100 UNIT/ML X5UNITS SQ SCH ×2 (11:37→21:59)
[2016-10-01] MEDS: Pregabalin 50 MG CAPSULE PO SCH ×2 (11:38→21:06)
[2016-10-01] MEDS: Aspirin Enteric Coated 81 MG Tablet PO SCH (11:38)
[2016-10-01] MEDS ORDERED: *HR* OxyCODONE Immed Rel 5 MG TABLET PO PRN (13:06)
[2016-10-01] MEDS ORDERED: *HR* OxyCODONE Immed Rel 15 MG TABLET PO PRN (13:10)
--- NOTE | 2016-10-01 13:11 | Internal Med Progress Note ---
Date of Encounter: 10/01/16 Time of Encounter: 13:09 - Assessment and plan (1) CVA (cerebral vascular accident) Current Visit: Yes Status: Acute Assessment and plan: possible new ischemic CVA with left sided weakness more pronounced on the upper extremity, the patient presented with an episode of atrial fibrillation with RVR She used to be on Xarelto up until one year ago where she started having problems with vaginal bleeding Prefers to beon Lovenox and Coumadin at the moment MRI of the brain : no acute CVA Echo pending carotid U/S normal CT scan of the neck did not show any carotid stenosis Neurology recommendations appreciated Discontinue aspirin per neurology Qualifiers: CVA mechanism: unspecified Qualified Code(s): I63.9 - Cerebral infarction, unspecified (2) Atrial fibrillation with rapid ventricular response Current Visit: Yes Status: Acute Assessment and plan: possible paroxysmal a fib Now in sinus rhythm Cardizem drip was stopped Continue metoprolol, not therapeutic PT OT Started Coumadin and Lovenox (3) Hyperlipemia Current Visit: No Status: Chronic Assessment and plan: simvastatin Qualifiers: Hyperlipidemia type: unspecified Qualified Code(s): E78.5 - Hyperlipidemia , unspecified (4) Diabetes mellitus, type II, insulin dependent Current Visit: No Status: Chronic Assessment and plan: ISS (5) HTN (hypertension) Current Visit: No Status: Chronic Assessment and plan: permissive HTN Qualifiers: Hypertension type: essential hypertension Qualified Code(s): I10 - Essential (primary) hypertension (6) Hypokalemia Current Visit: No Status: Acute Assessment and plan: repleted - Subjective Interval history: Complains of persistent weakness on the left arm and leg, no headaches, no fever , no abdominal pain no palpitations or dysuria - Constitutional Vitals: Temp Pulse Resp BP Pulse Ox 98.2 F 62 20 160/74 99 10/01/16 11:41 10/01/16 11:41 10/01/16 11:41 10/01/16 11:41 10/01/16 11:41 General appearance: Present: A&O X 3 - Head Head exam: Present: atraumatic, normocephalic - Eye Eye exam: Present: PERRL, conjuntiva pink, sclera anicteric Pupils: Present: PERRL - Neck Neck exam general surgery: Present: supple, trachea midline. Absent: lymphadenopathy - Respiratory Respiratory exam: Present: CTAB. Absent: accessory muscle use, rales, rhonchi, wheezes - Cardiovascular Cardiovascular exam: Present: RRR, +S1, +S2. Absent: diastolic murmur, gallop, rubs, systolic murmur - GI/Abdominal GI/Abdominal exam: Present: normal bowel sounds, soft, no peritoneal signs. Absent: distended, tenderness - Extremities Exam Extremities exam: Present: warm, radial pulses palpable and symetrical. Absent : calf tenderness, cyanotic, pedal edema Additional comments: left upper and lower extremities form before with numbness - Neurological Exam Neurological exam: Present: CN II-XII intact, oriented X3, no focal deficits. Absent: pronater drift, facial droop, speech deficit - Skin Skin exam: Present: dry, intact Internal Medicine: Result - Labs CBC & Chem 7: 10/01/16 04:06 10/01/16 04:06 Labs: Short CBC 10/01/16 Range/Units 04:06 WBC 6.2 (4.3-11.1) K/mcL Hgb 9.4 L (11.5-15.4) g/dL Hct 29.2 L (35.3-44.9) % Plt Count 208 (140-400) K/mcL BMP 10/01/16 04:06 Sodium 140 Potassium 3.5 Chloride 110 H Carbon Dioxide 22 BUN 11 Creatinine 0.65 Glucose 171 H Calcium 8.0 L - ABG Interpretation ABG results: PT/INR, D-dimer PT 10.0 Seconds (9.4-12.1) 10/01/16 04:06 D-Dimer 554 ng/mLFEU (0-500) H 09/29/16 12:56 - Impressions Impressions Brain MRI 10/01/16 07:26 IMPRESSION: Unremarkable MRI of the brain. No acute intracranial abnormality. D/ / 10/01/2016 12:36:41 Darryn Santos MD / анна Interpreting Provider: Darryn Santos MD Consult Discharge Plan - Plan Referrals: Joanne Paez MD [Primary Care Provider] -
--- NOTE | 2016-10-01 17:06 | Neurology Progress Note ---
Date of Encounter: 10/01/16 Time of Encounter: 16:56 Assessment and Plan (1) Hemiparesis affecting left side as late effect of stroke Current Visit: No Status: Chronic Still has left sided weakness although MRI of brain showed no evidence of cerebral infarct. Patient relates that she has had stroke in the past, few years ago, resulting in left sided paresis and she says that she was treated here at [facility] but in our imaging system i found 6 MRI of brain scans since 2009 and none of them showed evidence of acute infarct. No abnormal T2 or FLAIR signal changes are present to indicate history of previous infarct. The patient also has a 'conversion disorder' as one of the medical condition listed. The neurological presentation this time are worsening of weakness not associated with significant speech difficulty or mental status changes. Her neurological presentation certainly raise the suspicion of another encounter of conversion disorder. Psychiatric evaluation can certainly be beneficial. This patient however does have multiple risk factors for stroke especially the presence of atrial fibrillation. Unfortunately, due to the fact that she has had these episodes of TIA'/CVAs' that can not be confirmed by MRI scanning yet her neurological symptoms persist we are obligated to treat her aggressively concerning increased risk of stroke due to presence of atrial fibrillation Subjective Principal diagnosis: left sided weakness Interval history: Patient seen and examined. Still has left sided weakness although MRI of brain showed no evidence of cerebral infarct. Patient relates that she has had stroke in the past, few years ago, resulting in left sided paresis and she says that she was treated here at [facility] but in our imaging system i found 6 MRI of brain scans since 2009 and none of them showed evidence of acute infarct. No abnormal T2 or FLAIR signal changes are present to indicate history of previous infarct. The patient also has a 'conversion disorder' as one of the medical condition listed. The neurological presentation this time are worsening of weakness not associated with significant speech difficulty or mental status changes. Her neurological presentation certainly raise the suspicion of another encounter of conversion disorder. Psychiatric evaluation can certainly be beneficial. This patient however does have multiple risk factors for stroke especially the presence of atrial fibrillation. Unfortunately, due to the fact that she has had these episodes of TIA'/CVAs' that can not be confirmed by MRI scanning yet her neurological symptoms persist we are obligated to treat her aggressively concerning increased risk of stroke due to presence of atrial fibrillation Objective - Constitutional Vitals: Temp Pulse Resp BP Pulse Ox 98.3 F 68 20 148/80 98 10/01/16 15:48 10/01/16 15:48 10/01/16 15:48 10/01/16 15:48 10/01/16 15:48 - Neurological Exam Sensorimotor examination: Present: other (Grossly intact) Motor examination - left side: 3/5: deltoids, biceps, triceps, wrist flexion, wrist extension, 4/5: hip flexors, foil wrapper, quadriceps, tibialis Anterior, toe extension (EHL), plantarflexion Sensation intact: Present: other (Grossly intact) Posture: Present: other (None) Mental Status Examination: Present: awake, alert, oriented to person, oriented to place, oriented to time, follows commands appropriately, answers questions appropriately, no agnosia, no aphasia, no aproxia Cranial nerve examination: Present: PERRL, EOMI, visual mustafa intact, corneal reflexes brisk symmetrically, sensory to face intact, mastication intact, no facial asymmetry is present, no dysarthria, hearing is intact symmetrically, soft palate elevates bilaterally upon phonation, gag reflex intact, flexes SCM and trapezius muscles symmetrically with full power, tongue protrudes midline, no atrophy or facial fasiculations present Results - Laboratory Findings CBC and BMP: 10/01/16 04:06 10/01/16 04:06 Abnormal lab findings: Abnormal lab results RBC 3.76 M/mcL (3.82-4.97) L 10/01/16 04:06 Hgb 9.4 g/dL (11.5-15.4) L 10/01/16 04:06 Hct 29.2 % (35.3-44.9) L 10/01/16 04:06 MCV 77.7 fL (83.0-100.0) L 10/01/16 04:06 MCH 25.0 pg (28.0-33.3) L 10/01/16 04:06 RDW 15.8 % (11.5-14.5) H 10/01/16 04:06 D-Dimer 554 ng/mLFEU (0-500) H 09/29/16 12:56 Chloride 110 mEq/L (98-109) H 10/01/16 04:06 Glucose 171 mg/dL (70-99) H 10/01/16 04:06 POC Glucose 157 (58-89) H 10/01/16 07:11 Calcium 8.0 mg/dL (8.6-10.8) L 10/01/16 04:06 Magnesium 1.4 mg/dL (1.6-2.6) L 09/30/16 00:41 Ur Specific [place] > 1.030 (1.010-1.025) H 09/29/16 16:41 Urine Glucose (UA) 100 mg/dL (Normal) H 09/29/16 16:41 Urine Blood Large (Negative) H 09/29/16 16:41 Urine Microscopic RBC 15-30 per hpf (0-3) H 09/29/16 16:41 Ur Squamous Epith Cells Many per lpf (None-Few) H 09/29/16 16:41 Consult Discharge Plan - Plan Referrals: Joanne Paez MD [Primary Care Provider] - 10/09/16 10:45 am
[2016-10-01] MEDS: *HR* Warfarin 5 MG TABLET PO SCH (17:22)
[2016-10-01] MEDS: clonazePAM 0.5 MG TABLET PO SCH (21:06)
[2016-10-01] MEDS ORDERED: Perflutren Lipid Microsphere 1.3 ML in 0.9 % Sodium Chloride 8.7 ML IVP ONE (21:31)
[2016-10-02] MEDS: *HR* Enoxaparin 100 MG/ML SYRINGE SQ SCH (05:11)
[2016-10-02 05:29] VITALS: BP 144/62
[2016-10-02 06:11] LABS: Prothrombin Time 10.3 Seconds (9.4-12.1)
[2016-10-02] MEDS: Insulin LISPRO 300 UNITS/3 ML VIAL SQ SCH ×2 (08:16→12:05)
[2016-10-02] MEDS: Pregabalin 50 MG CAPSULE PO SCH (08:16)
[2016-10-02] MEDS: Insulin DETEMIR 100 UNIT/ML X5UNITS SQ SCH (08:16)
--- NOTE | 2016-10-02 09:02 | ECHO - Doppler Report ---
Limited Echo with Imaging Enhancement Agent Name: Christie Jacome Date of Study: 10/01/2016 Date: 1965 Ht: 62.0 in Medical Record#: [id number] Age: 50 Wt: 206.0 lb Gender: Female BSA: 1.94 Order #: [id number] Location: [facility] Room #: [id number] Reading Physician: Agueda Donald DO Public Speaking Teacher: Ema Villalba Ordering Physician: Regan Browning MD Primary Physician: Joanne Paez MD Indications: Cerebrovascular Accident, Questionable thrombus Impressions: Normal left ventricular size and systolic function. There is no evidence of left ventricular thrombus. Definity was given. Normal right ventricular size and function. Left Ventricular Wall Motion: Rest Echo Findings All wall segments showed normal motion. Findings: Study Quality * Technically adequate exam. ECG Findings * Normal sinus rhythm. Left Ventricle * Normal LV chamber size, wall thickness and function. * There is no LV thrombus. * Definity echo contrast was used. Right Ventricle * Normal right ventricular structure and function. History Hypertension Diabetes Hypercholesteremia Family History of CAD Myocardial Infarction Congestive Heart Failure 08/09/2016 a Previous Echo was performed. Contrast: Definity 1.3 ml in 8.7 ml of saline 2 ml. Measurements: BP: 148/ 80 2D Normal Values IVSd: 1.10 cm 0.6 - 1.0 cm LVIDd: 5.30 cm 3.7 - 5.6 cm LVPWd: 1.10 cm 0.6 - 1.1 cm LVIDs: 3.70 cm 1.5 - 3.6 cm AO: 2.30 cm < 4.0 cm LA: 4.00 cm 2.0 - 4.0cm %FS: 30.20 cm >25 % LA volume: 84 Updated by Agueda Donald on 10/02/2016 8:55:41 AM electronically signed on 10/02/2016 8:57:26 AM with status of Final Wall Motion Anton: 1=Normal, 2=Hypokinesis, 3=Akinesis, 4=Dyskinesis, 5=Aneurysmal, 6=Hyperkinetic, X=Not Visualized (Blank)=Missing
--- NOTE | 2016-10-02 14:35 | Discharge Summary ---
Date of Encounter: 10/02/16 (n) Time of Encounter: 14:33 - Discharge Diagnosis (1) TIA (transient ischemic attack) Priority: Primary Status: Acute Qualifiers: Transient cerebral ischemia type: other Qualified Code(s): G45.8 - Other transient cerebral ischemic attacks and related syndromes (2) Diabetes mellitus, type II, insulin dependent Priority: Secondary Status: Chronic (3) Anxiety Priority: Secondary Status: Chronic (4) Obesity (BMI 30-39.9) Priority: Secondary Status: Chronic (5) Weakness Priority: Primary Status: Acute - Discharge Medications Prescriptions: Enoxaparin [Lovenox] 90 mg SQ Q12HR #14 syringe ClonazePAM [Klonopin] 0.5 mg PO HS #8 tablet Warfarin [Coumadin] 5 mg PO DAILY@1800 #30 tablet Home Medications: Albuterol Sulfate [Proair Respiclick] 2 puff IH Q4H PRN 10/26/15 [History] Aspirin [Adult Low Dose Aspirin EC] 81 mg PO DAILY 10/26/15 [History] Etonogestrel [Nexplanon] 68 mg SQ AD 10/26/15 [History] Insulin ASPART [Novolog Flexpen] 2 - 10 unit SQ TID 10/26/15 [History] Lisinopril [Zestril] 5 mg PO DAILY 10/26/15 [History] Metformin [Glucophage] 1,000 mg PO BIDWM 10/26/15 [History] Omeprazole [PriLOSEC] 40 mg PO DAILY 10/26/15 [History] Pregabalin [Lyrica] 100 mg PO BID 10/26/15 [History] Sertraline [Zoloft] 150 mg PO DAILY 10/26/15 [History] Trazodone HCl 50 - 100 mg PO HS PRN 10/26/15 [History] Atorvastatin Calcium [Lipitor] 20 mg PO DAILY #0 04/17/16 [Rx] Ibuprofen [Motrin] 600 mg PO Q6-8H PRN #30 tab 05/21/16 [Rx] Insulin Glargine,Hum.rec.anlog [Lantus Solostar] 50 unit SQ BID 30 Days [Rx] Metoprolol [Lopressor] 25 mg PO BID 30 Days 08/19/16 [Rx] Dicyclomine [Bentyl] 10 mg PO QID PRN #20 capsule 08/29/16 [Rx] Ondansetron ODT [Zofran ODT] 4 mg SL Q6HR #10 tab.rapdis 09/12/16 [Rx] ClonazePAM [Klonopin] 0.5 mg PO HS #8 tablet 10/02/16 [Rx] Enoxaparin [Lovenox] 90 mg SQ Q12HR #14 syringe 10/02/16 [Rx] Warfarin [Coumadin] 5 mg PO DAILY@1800 #30 tablet 10/02/16 [Rx] Allergies/Adverse Reactions: Allergies No Known Allergies Allergy (Verified 09/12/16 14:31) Procedures/tests Complete & Pending: Procedures Performed prior 72 hours Category Date Time Status MR head/brain wo con [MR] Routine MRI 10/01/16 07:26 Completed ECG 12 lead ECG [ECG] Routine Y 09/29/16 22:51 Completed EV carotid duplex imaging BI Routine Y 09/29/16 22:16 Completed EV limited echo w enhance Routine Y 10/01/16 12:59 Completed Date of admission: 09/29/16 16:13 Primary care physician: Joanne Paez Consults: 09/29/16 18:24 Consult to Occupational Therapy [CONS] Routine Comment: Evaluate, develop and implement POC Consult to Physical Therapy [CONS] Routine Comment: Evaluate, develop and implement POC 09/29/16 18:26 Consult to Neurology [CONS] Routine Consulting Provider: Neurology [facility] Reason for Consult: Concern for stroke/TIA, history of hemorrhagic stroke Call Completed: Yes 10/01/16 07:23 Consult to Motor Hotel Manager [CONS] Routine Comment: 10/01/16 10:17 Consult to Property Management Intern [CONS] Routine Reason for SW Consult: possible needs on discharge - Patient Status Disposition: Home, Self-Care Condition: Good Functional capacity at discharge: independent ambulation Overall status at discharge: patient is progressing back to baseline - Discharge Instructions Follow Up With: Joanne Paez MD [Primary Care Provider] - 10/09/16 10:45 am Carlos Flores MD [Partnered Physician] - (in 1-2 weeks) Additional Instructions: She will need to see her DEPUTY HEAD provider in order to go over whether she needs the etonogesterol implant taken out. See her ORNAMENT SETTER in 1-2 weeks - Diet and Activity Activity: increase activity as tolerated, return to work once cleared by your PCP/specialist Diet: diabetic diet, low fat, low cholesterol Hospital course: Ms. Jacome is a 50 year old female was admitted to hospital with left-sided weakness and a short run of A. fib with rapid ventricular response. IV fluids in the emergency room took care of the A. fib without rapid ventricular response and a normal sinus rhythm since then. She has had residual left-sided weakness. On my exam I had difficulty trying to get her to cooperate with simultaneous strength testing of her upper extremities. She either would not director geophysical laboratory my hands altogether on both hands or would not director geophysical laboratory role strong with my right with not even moving the left. She has ratcheting weakness in the left arm on strength exam as well. She does appear to be weaker with left director geophysical laboratory strength and her left arm. She denies any weakness in her left leg. MRI did not show any acute or subacute infarcts. MRA of the brain was basically negative for any acute changes. Echocardiogram was done, echocardiogram showed normal ventricular size and function. No evidence of left ventricular thrombus. Normal heart signs. Basically a normal study. Consultation was obtained from Dr. Flores from neurology. He recommended anticoagulation because her past history of atrial fibrillation and paroxysmal A. fib and that she had a chads score of 3-4 which would require this. She was started on Lovenox. That will bridge her over until her Coumadin is therapeutic. Of note; she has a etonogesterol implant... given history of TIA , she needs to see her DEPUTY HEAD with regards to this> If she has a stroke as Dr. Flores suspects , this implant is contraindicated - Time Spent with Patient Total time spent providing and/or coordinating discharge services: - Constitutional Vitals: Temp Pulse Resp BP Pulse Ox 97.4 F L 64 16 144/62 95 10/02/16 05:25 10/02/16 05:25 10/02/16 05:25 10/02/16 05:25 10/02/16 08:26 General appearance: Present: A&O X 3 - Cardiovascular Cardiovascular exam: Present: RRR, +S1, +S2 - Neurological Exam Additional comments: Left arm weakness both with abduction and abduction, decreased biceps curl strength, decreased director geophysical laboratory strength as compared to the right side. On examination [id number] compatibility, the weakness is a ratcheting weakness. There is no left leg weakness noted by me.
== END 2016-10-02 15:35 | disposition home or self-care (01) ==
LOC: EMEROO 12:21 → 2NENU 12:21
PROVIDERS: ADMIT Internal Medicine; ATTEND Internal Medicine

== ENCOUNTER 2017-02-05 16:36 | Observation (INO) ==
--- NOTE | 2017-02-05 16:51 | Emergency Department Note ---
Disposition Clinical Impression: Chest pain Disposition: Admitted As Inpatient Condition: Good General Adult HPI - General Chief complaint: ED Chest Pain Stated complaint: Chest Pain Time Seen by Provider: 02/05/17 16:47 Source: patient Limitations: no limitations - History of Present Illness Pain Scale: 10 - Related Data Home Medications Medication Instructions Recorded Confirmed Albuterol Sulfate [Proair 2 puff IH Q4H PRN 10/26/15 09/29/16 Respiclick] Aspirin [Adult Low Dose Aspirin EC] 81 mg PO DAILY 10/26/15 09/29/16 Etonogestrel [Nexplanon] 68 mg SQ AD 10/26/15 09/29/16 Insulin ASPART [Novolog Flexpen] 2 - 10 unit SQ TID 10/26/15 09/29/16 Lisinopril [Zestril] 5 mg PO DAILY 10/26/15 09/29/16 Omeprazole [PriLOSEC] 40 mg PO DAILY 10/26/15 09/29/16 Pregabalin [Lyrica] 100 mg PO BID 10/26/15 09/29/16 Sertraline [Zoloft] 150 mg PO DAILY 10/26/15 02/05/17 Trazodone HCl 50 - 100 mg PO HS PRN 10/26/15 02/05/17 metFORMIN [Glucophage] 1,000 mg PO BIDWM 10/26/15 02/05/17 Previous Rx's Medication Instructions Recorded Atorvastatin Calcium [Lipitor] 20 mg PO DAILY #0 04/17/16 Ibuprofen [Motrin] 600 mg PO Q6-8H PRN #30 tab 05/21/16 Insulin Glargine,Hum.rec.anlog 50 unit SQ BID 30 Days 08/19/16 [Lantus Solostar] Metoprolol [Lopressor] 25 mg PO BID 30 Days 08/19/16 Dicyclomine [Bentyl] 10 mg PO QID PRN #20 capsule 08/29/16 Ondansetron ODT [Zofran ODT] 4 mg SL Q6HR #10 tab.rapdis 09/12/16 Enoxaparin [Lovenox] 90 mg SQ Q12HR #14 syringe 10/02/16 Warfarin [Coumadin] 5 mg PO DAILY@1800 #30 tablet 10/02/16 clonazePAM [Klonopin] 0.5 mg PO HS #8 tablet 10/02/16 Cephalexin [Keflex] 500 mg PO TID #30 capsule 11/22/16 HydrOXYzine Pamoate [Vistaril] 50 mg PO TID #15 capsule 11/22/16 HYDROcodone/Acet 5/325 mg [[place] 1 tab PO Q6H PRN #10 tab 11/24/16 5-325 mg] Allergies Allergy/AdvReac Type Severity Reaction Status Date / Time No Known Allergies Allergy Verified 02/05/17 18:51 Past Medical History - Past Medical History Medical history: Reports: atrial fibrillation, COPD, CVA, diabetes, hyperlipidemia, hypertension, myocardial infarction Surgical history: Reports: , cholecystectomy Psychiatric history: Reports: anxiety, depression BURR GRINDER history: Reports: no BURR GRINDER history - Social History Smoking Status: Never smoker Smokeless Tobacco Status: No Alcohol use: Reports: none Drug use: Reports: none Physical Exam - General Limitations: no limitations General appearance: alert Course Vital Signs Temperature 97.9 F 02/05/17 16:43 Pulse Rate 80 02/05/17 16:43 Respiratory Rate 18 02/05/17 16:43 Blood Pressure 145/81 02/05/17 16:43 O2 Sat by Pulse Oximetry 100 02/05/17 16:43 Temperature 97.8 F 02/06/17 03:19 Pulse Rate 70 02/06/17 03:19 Respiratory Rate 15 02/06/17 03:19 Blood Pressure 132/83 02/06/17 03:19 O2 Sat by Pulse Oximetry 94 02/06/17 03:19 Oxygen Delivery Oxygen Delivery Room Air Medical Decision Making - Lab Data Result diagrams: 02/05/17 17:22 02/06/17 00:29 Lab Results 02/05/17 02/05/17 02/05/17 Range/Units 17:22 17:22 17:22 WBC 7.0 (4.3-11.1) K/mcL RBC 4.82 (3.82-4.97) M/mcL Hgb 11.9 (11.5-15.4) g/dL Hct 37.1 (35.3-44.9) % MCV 77.0 L (83.0-100.0) fL MCH 24.7 L (28.0-33.3) pg MCHC 32.1 (31.6-35.5) g/dL RDW 15.8 H (11.5-14.5) % Plt Count 218 (140-400) K/mcL MPV 10.1 (9.4-12.4) fL Immature Gran % 0.6 (0-4) % Seg Neutrophils % 70.6 % Lymphocytes % 23.5 % Monocytes % 3.9 % Eosinophils % 1.0 % Basophils % 0.4 % Neutrophils # 5.0 (1.6-8.9) K/mcL Lymphocytes # 1.7 (0.6-4.6) K/mcL Monocytes # 0.3 (0.0-1.3) K/mcL Eosinophils # 0.1 (0.0-0.6) K/mcL Basophils # 0.0 (0.0-0.2) K/mcL PT 10.1 (9.4-12.1) Seconds INR 0.9 APTT 26.2 (26.0-36.0) Seconds D-Dimer 480 (0-500) ng/mLFEU Sodium (136-145) mEq/L Potassium (3.5-4.5) mEq/L Chloride (98-109) mEq/L Carbon Dioxide (19-29) mEq/L BUN (7-20) mg/dL Creatinine (0.57-1.11) mg/dL Est GFR ( Amer) (> 60) Est GFR (Non-Af Amer) (> 60) BUN/Creatinine Ratio (6-26) Glucose (70-99) mg/dL Calculated Osmolality (280-300) Calcium (8.6-10.8) mg/dL Troponin I (0-0.03) ng/mL B-Natriuretic Peptide 31 (0-100) pg/mL 02/05/17 02/05/17 Range/Units 17:22 17:22 WBC (4.3-11.1) K/mcL RBC (3.82-4.97) M/mcL Hgb (11.5-15.4) g/dL Hct (35.3-44.9) % MCV (83.0-100.0) fL MCH (28.0-33.3) pg MCHC (31.6-35.5) g/dL RDW (11.5-14.5) % Plt Count (140-400) K/mcL MPV (9.4-12.4) fL Immature Gran % (0-4) % Seg Neutrophils % % Lymphocytes % % Monocytes % % Eosinophils % % Basophils % % Neutrophils # (1.6-8.9) K/mcL Lymphocytes # (0.6-4.6) K/mcL Monocytes # (0.0-1.3) K/mcL Eosinophils # (0.0-0.6) K/mcL Basophils # (0.0-0.2) K/mcL PT (9.4-12.1) Seconds INR APTT (26.0-36.0) Seconds D-Dimer (0-500) ng/mLFEU Sodium 138 (136-145) mEq/L Potassium 3.3 L (3.5-4.5) mEq/L Chloride 107 (98-109) mEq/L Carbon Dioxide 21 (19-29) mEq/L BUN 9 (7-20) mg/dL Creatinine 0.78 (0.57-1.11) mg/dL Est GFR ( Amer) > 60 (> 60) Est GFR (Non-Af Amer) > 60 (> 60) BUN/Creatinine Ratio 12 (6-26) Glucose 398 H (70-99) mg/dL Calculated Osmolality 301 H (280-300) Calcium 9.2 (8.6-10.8) mg/dL Troponin I 0.00 (0-0.03) ng/mL B-Natriuretic Peptide (0-100) pg/mL Attestation Statement - Attestation Attestation: I examined this patient and my medical decision-making was reviewed with the Resident Physician. I agree with the documented findings, disposition and treatment plan as described except to the extent set forth below. [id number] time provided Patient presents complaining of chest discomfort and left-sided face and neck pain. She appears in no acute distress. Home medications reviewed by me. Patient states she has been off her Coumadin due to insurance reasons. Remote history of paroxysmal atrial fibrillation
[2017-02-05] MEDS ORDERED: 0.9 % Sodium Chloride 500 ML IVC ONE (16:52)
--- NOTE | 2017-02-05 16:54 | Emergency Department Note ---
Disposition Clinical Impression: Chest pain Disposition: Admitted As Inpatient Condition: Good Time of Disposition: 18:32 Chest Pain HPI - General Chief Complaint: ED Chest Pain Stated Complaint: Chest Pain Time Seen by Provider: 02/05/17 16:47 Source: patient Mode of arrival: ambulatory Limitations: no limitations Vital Signs Reviewed: Yes Nursing Notes Reviewed: Yes - History of Present Illness HPI Narrative: Patient presents to the ED with the chief complaint of chest pain and not feeling well. Reports a history of paroxysmal A. fib. 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 For the last few hours. She has been having central and left-sided chest discomfort. Some radiation to her neck and shoulder. States that she has had a heart attack before but no stents or bypass is. Does not take any antiplatelet medications. States this feels somewhat similar to her last heart attack, but not exactly. She denies any diaphoresis or nausea, but states that she just does not feel right. No vomiting, abdominal pain. She does have some shortness of breath. No urinary complaints. No pain or swelling in her legs. She states that she is getting old and cannot remember any of her medications or medical history and that we should have it in the medical record. Severity scale (1-10): 10 - Related Data Home Medications Medication Instructions Recorded Confirmed Albuterol Sulfate [Proair 2 puff IH Q4H PRN 10/26/15 09/29/16 Respiclick] Aspirin [Adult Low Dose Aspirin EC] 81 mg PO DAILY 10/26/15 09/29/16 Etonogestrel [Nexplanon] 68 mg SQ AD 10/26/15 09/29/16 Insulin ASPART [Novolog Flexpen] 2 - 10 unit SQ TID 10/26/15 09/29/16 Lisinopril [Zestril] 5 mg PO DAILY 10/26/15 09/29/16 Omeprazole [PriLOSEC] 40 mg PO DAILY 10/26/15 09/29/16 Pregabalin [Lyrica] 100 mg PO BID 10/26/15 09/29/16 Sertraline [Zoloft] 150 mg PO DAILY 10/26/15 09/29/16 Trazodone HCl 50 - 100 mg PO HS PRN 10/26/15 09/29/16 metFORMIN [Glucophage] 1,000 mg PO BIDWM 10/26/15 09/29/16 Previous Rx's Medication Instructions Recorded Atorvastatin Calcium [Lipitor] 20 mg PO DAILY #0 04/17/16 Ibuprofen [Motrin] 600 mg PO Q6-8H PRN #30 tab 05/21/16 Insulin Glargine,Hum.rec.anlog 50 unit SQ BID 30 Days 08/19/16 [Lantus Solostar] Metoprolol [Lopressor] 25 mg PO BID 30 Days 08/19/16 Dicyclomine [Bentyl] 10 mg PO QID PRN #20 capsule 08/29/16 Ondansetron ODT [Zofran ODT] 4 mg SL Q6HR #10 tab.rapdis 09/12/16 Enoxaparin [Lovenox] 90 mg SQ Q12HR #14 syringe 10/02/16 Warfarin [Coumadin] 5 mg PO DAILY@1800 #30 tablet 10/02/16 clonazePAM [Klonopin] 0.5 mg PO HS #8 tablet 10/02/16 Cephalexin [Keflex] 500 mg PO TID #30 capsule 11/22/16 HydrOXYzine Pamoate [Vistaril] 50 mg PO TID #15 capsule 11/22/16 HYDROcodone/Acet 5/325 mg [[place] 1 tab PO Q6H PRN #10 tab 11/24/16 5-325 mg] Allergies Allergy/AdvReac Type Severity Reaction Status Date / Time No Known Allergies Allergy Verified 09/12/16 14:31 Constitutional: Denies: fever Eyes: Denies: vision change Cardiovascular: Reports: chest pain Respiratory: Reports: dyspnea Gastrointestinal: Denies: vomiting Musculoskeletal: Denies: neck pain Integumentary: Denies: rash Neurological: Denies: headache Chest Pain PMH - Past Medical History Medical history: Reports: atrial fibrillation, COPD, CVA, diabetes, hyperlipidemia, hypertension, myocardial infarction Surgical history: Reports: , cholecystectomy Psychiatric history: Reports: anxiety, depression LEAN MANUFACTURING SPECIALIST history: Reports: no LEAN MANUFACTURING SPECIALIST history - Social History Smoking Status: Never smoker Alcohol use: Reports: none Drug use: Reports: none Physical Exam - General Limitations: no limitations General appearance: alert, in no apparent distress - Head Head exam: atraumatic, normocephalic, normal inspection - Eye Eye exam: Present: normal appearance, PERRL, EOMI - ENT ENT exam: normal exam, normal oropharynx, mucous membranes moist - Neck Neck exam: Present: normal inspection, full ROM, trachea midline - Chest Chest inspection: Present: normal inspection, symmetric chest wall rise - Respiratory Respiratory exam: Present: normal lung sounds bilaterally - Cardiovascular Cardiovascular exam: Present: regular rate, normal rhythm, normal heart sounds - Abdominal Exam Abdominal exam: Present: soft, Non-Tender. Absent: tenderness, distention, guarding, rebound, rigidity - Extremities Exam Extremities exam: Present: normal inspection, full ROM. Absent: tenderness, pedal edema - Neurological Exam Neurological exam: Present: alert, oriented X3 - Psychiatric Psychiatric exam: Present: anxious. Absent: normal affect, normal mood - Skin Skin exam: Present: warm, dry, intact, normal color Course Course Narrative: 51-year-old female presenting with chest pain and not feeling well. Similar to her previous PA. We will get labs, chest x-ray, EKG and admitted. Vital Signs Temperature 97.9 F 02/05/17 16:43 Pulse Rate 80 02/05/17 16:43 Respiratory Rate 18 02/05/17 16:43 Blood Pressure 145/81 02/05/17 16:43 O2 Sat by Pulse Oximetry 100 02/05/17 16:43 Temperature 97.9 F 02/05/17 16:43 Pulse Rate 80 02/05/17 16:43 Respiratory Rate 16 02/05/17 18:15 Blood Pressure 150/75 02/05/17 18:15 O2 Sat by Pulse Oximetry 100 02/05/17 16:43 Oxygen Delivery Oxygen Delivery Room Air Chest Pain - Medical Records Medical records reviewed: Yes I reviewed the patient's medical records. - Lab Data Lab results reviewed: Yes I reviewed the patient's lab results. Result diagrams: 02/05/17 17:22 02/05/17 17:22 Lab Results 02/05/17 02/05/17 02/05/17 Range/Units 17:22 17:22 17:22 WBC 7.0 (4.3-11.1) K/mcL RBC 4.82 (3.82-4.97) M/mcL Hgb 11.9 (11.5-15.4) g/dL Hct 37.1 (35.3-44.9) % MCV 77.0 L (83.0-100.0) fL MCH 24.7 L (28.0-33.3) pg MCHC 32.1 (31.6-35.5) g/dL RDW 15.8 H (11.5-14.5) % Plt Count 218 (140-400) K/mcL MPV 10.1 (9.4-12.4) fL Immature Gran % 0.6 (0-4) % Seg Neutrophils % 70.6 % Lymphocytes % 23.5 % Monocytes % 3.9 % Eosinophils % 1.0 % Basophils % 0.4 % Neutrophils # 5.0 (1.6-8.9) K/mcL Lymphocytes # 1.7 (0.6-4.6) K/mcL Monocytes # 0.3 (0.0-1.3) K/mcL Eosinophils # 0.1 (0.0-0.6) K/mcL Basophils # 0.0 (0.0-0.2) K/mcL PT 10.1 (9.4-12.1) Seconds INR 0.9 APTT 26.2 (26.0-36.0) Seconds D-Dimer 480 (0-500) ng/mLFEU Sodium (136-145) mEq/L Potassium (3.5-4.5) mEq/L Chloride (98-109) mEq/L Carbon Dioxide (19-29) mEq/L BUN (7-20) mg/dL Creatinine (0.57-1.11) mg/dL Est GFR ( Amer) (> 60) Est GFR (Non-Af Amer) (> 60) BUN/Creatinine Ratio (6-26) Glucose (70-99) mg/dL Calculated Osmolality (280-300) Calcium (8.6-10.8) mg/dL Troponin I (0-0.03) ng/mL B-Natriuretic Peptide 31 (0-100) pg/mL 02/05/17 02/05/17 Range/Units 17:22 17:22 WBC (4.3-11.1) K/mcL RBC (3.82-4.97) M/mcL Hgb (11.5-15.4) g/dL Hct (35.3-44.9) % MCV (83.0-100.0) fL MCH (28.0-33.3) pg MCHC (31.6-35.5) g/dL RDW (11.5-14.5) % Plt Count (140-400) K/mcL MPV (9.4-12.4) fL Immature Gran % (0-4) % Seg Neutrophils % % Lymphocytes % % Monocytes % % Eosinophils % % Basophils % % Neutrophils # (1.6-8.9) K/mcL Lymphocytes # (0.6-4.6) K/mcL Monocytes # (0.0-1.3) K/mcL Eosinophils # (0.0-0.6) K/mcL Basophils # (0.0-0.2) K/mcL PT (9.4-12.1) Seconds INR APTT (26.0-36.0) Seconds D-Dimer (0-500) ng/mLFEU Sodium 138 (136-145) mEq/L Potassium 3.3 L (3.5-4.5) mEq/L Chloride 107 (98-109) mEq/L Carbon Dioxide 21 (19-29) mEq/L BUN 9 (7-20) mg/dL Creatinine 0.78 (0.57-1.11) mg/dL Est GFR ( Amer) > 60 (> 60) Est GFR (Non-Af Amer) > 60 (> 60) BUN/Creatinine Ratio 12 (6-26) Glucose 398 H (70-99) mg/dL Calculated Osmolality 301 H (280-300) Calcium 9.2 (8.6-10.8) mg/dL Troponin I 0.00 (0-0.03) ng/mL B-Natriuretic Peptide (0-100) pg/mL - Radiology Data Radiology results reviewed: Yes I reviewed the patient's radiology results. - EKG Data EKG attestation: Yes I reviewed and interpreted this EKG. S.B.A.Wiliam. - S.B.A.R. Situation: Demographics, MOA Background: Presenting Complaint, Relevant PMH, Meds, & Allergies Assessment: Vital Signs, Course and respsone to treatment, Exam Concerns, Patient/Family Expectation, Pertinant Lab Results, Outstanding Labs Recommendation: Recommendation based on pending studies, treatments, or consults S.B.A.R. Report Given to: Elvira Benoit Rebekah Repor Time: 18:32
[2017-02-05 17:30] LABS: Basophils % 0.4 %; Eosinophils # 0.1 K/mcL (0.0-0.6); Hematocrit 37.1 % (35.3-44.9); Hemoglobin 11.9 g/dL (11.5-15.4); Immature Granulocytes % 0.6 % (0-4); Lymphocytes # 1.7 K/mcL (0.6-4.6); Lymphocytes % 23.5 %; Mean Corpuscular HGB Conc 32.1 g/dL (31.6-35.5); Mean Corpuscular Hemoglobin 24.7 pg (28.0-33.3); Mean Platelet Volume 10.1 fL (9.4-12.4); Monocytes # 0.3 K/mcL (0.0-1.3); Monocytes % 3.9 %; Platelet Count 218 K/mcL (140-400); Red Blood Count 4.82 M/mcL (3.82-4.97); Red Cell Distribution Width 15.8 % (11.5-14.5); Segmented Neutrophils % 70.6 %
[2017-02-05 17:41] LABS: INR 0.9; Prothrombin Time 10.1 Seconds (9.4-12.1)
[2017-02-05 17:44] LABS: Activated Partial Thrombo Time 26.2 Seconds (26.0-36.0)
[2017-02-05 17:46] LABS: BUN/Creatinine Ratio 12 (6-26); Blood Urea Nitrogen 9 mg/dL (7-20); Calcium 9.2 mg/dL (8.6-10.8); Carbon Dioxide 21 mEq/L (19-29); Chloride 107 mEq/L (98-109); Glucose 398 mg/dL (70-99); Osmolality,Calculated 301 (280-300); Potassium 3.3 mEq/L (3.5-4.5); Sodium 138 mEq/L (136-145); eGFR For African Americans > 60 (> 60); eGFR For Non-African Americans > 60 (> 60)
[2017-02-05] MEDS ORDERED: Acetaminophen 325 MG TABLET PO PRN (18:34)
[2017-02-05] MEDS ORDERED: Ondansetron 4 MG/2 ML VIAL IVP PRN (18:34)
[2017-02-05] MEDS ORDERED: Naloxone 0.4 MG/ML INJ IVP PRN (18:34)
[2017-02-05] MEDS ORDERED: Nitroglycerin 0.4 MG TAB.SUBL SL PRN (18:36)
[2017-02-05] MEDS ORDERED: Dextrose Gel 15 GM PO PRN ×2 (18:36)
[2017-02-05] MEDS ORDERED: *HR* Dextrose 50 % in Water (Syg) 50 ML SYRINGE IVP PRN (18:36)
[2017-02-05] MEDS ORDERED: D5% in Water 1,000 ML IVC PRN (18:36)
--- NOTE | 2017-02-05 18:40 | Event Note ---
Date of Encounter: 02/05/17 Time of Encounter: 18:37 1. Chest pain with history of CAD Continue aspirin, metoprolol, Lipitor, morphine and nitroglycerin as needed Telemetry, monitor troponins, check lipid panel in the morning Order a stress test for the morning 2. Paroxysmal atrial fibrillation, not on anticoagulation as she lost her insurance recently and has not been able to take her medications. She is high risk of strokes due to prior history of CVA Consult social work nurse Start Lovenox until INR more than 2, resume Coumadin 3. 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 Diabetes type 2 insulin-dependent, restart long-acting insulin and insulin sliding scale 5. Hypokalemia, replete as needed 6. COPD not oxygen dependent, toenails as needed Omeprazole for GI prophylaxis and Lovenox for DVT prophylaxis. The patient will be admitted for observation. Full code. Time spent on this admission 40 minutes. High risk due to comorbidities. H&P to be written by JERRELL Benoit
[2017-02-05] MEDS: *HR* Morphine 2 MG/ML SYRINGE IVP PRN ×2 (19:41→23:53)
[2017-02-05] MEDS: 0.9 % Sodium Chloride 1,000 ML IVC SCH (19:42)
--- NOTE | 2017-02-05 20:03 | Internal Med History&Physical ---
<Elvira Benoit M - Last Filed: 02/05/17 20:20> Date of Encounter: 02/05/17 Time of Encounter: 19:55 Assessment and Plan (1) Chest pain, rule out acute myocardial infarction Current visit: Yes Status: Acute Patient reports chest pain today with radiation to left shoulder and left jaw, with numbness and tingling down left arm. EKG showed sinus rhythm without ST changes. Troponin negative at 0.00. Patient with history of CAD. Continue aspirin, metoprolol, lipitor nitro and morphine PRN for chest pain Continuous java application developer serial troponins Check lipid panelwith AM labs. stress test in the morning. (2) Subtherapeutic international normalized ratio (INR) Current visit: Yes Status: Acute Patient reports she has not been taking her coumadin due to insurance reasons. INR today is 0.9. Weight based lovenox given as bridge Coumadin started. Check PT/INR daily Pharmacy to dose coumadin. (3) Type 2 diabetes mellitus Current visit: Yes Status: Acute diabetic, heart healthy diet check blood sugars ACHS continue home dose of long acting insulin 50u BID 4u short acting TID with meals plus sliding scale ACHS hypoglycemic protocol. Qualifiers: Diabetes mellitus complication status: with neurologic complications Diabetes mellitus complication detail: with polyneuropathy Diabetes mellitus shelter insulin use: with buttermaker helper use Qualified Code(s): E11.42 - Type 2 diabetes mellitus with diabetic polyneuropathy; Z79.4 - buttermaker helper (current) use of insulin (4) COPD (chronic obstructive pulmonary disease) Current visit: Yes Status: Chronic Patient not reporting any increased shortness of breath or coughing, not in exacerbation. Continue albuterol inhaler PRN Qualifiers: COPD type: chronic bronchitis Chronic bronchitis type: unspecified Qualified Code(s): J42 - Unspecified chronic bronchitis (5) Paroxysmal atrial fibrillation Current visit: Yes Status: Chronic Patient with paroxysmal afib, and reporting increased episodes of palpitations. She is supposed to be taking coumadin, but stopped 1 month ago due to insurance reasons. EKG shows sinus rhythm, heart has regular rate and rhythm on exam. Patient given weight based lovenox and started on coumadin. Will check PT/INR daily until therapeutic. Pharmacy to dose. (6) Hypokalemia Current visit: Yes Status: Acute Potassium of 3.3 40mEq of potassium given PO check chemistry in the morning. (7) DVT prophylaxis Current visit: Yes Status: Acute Patient given weight based lovenox as bridge and started on coumadin for afib. Additional pharmacologic prophylaxis not warranted. Internal Medicine - H&P: HPI Chief complaint: chest pain Admitted From: Emergency Dept Plans for Post Hospital Care: Home History of present illness: Ms. Jacome is a 51 year old female with hypertension, hyperlipidemia, COPD, atrial fibrillation, coronary artery disease, type 2 diabetes, history of DVT and PE, history of small hemorrhagic CVA presented to the emergency department today with complaints of chest pain. Patient reports that she has had chest pain on and off in the past, but felt she was "doing good "until today when she had onset of chest pain this afternoon, the felt like a pressure, and stabbing, was radiating to her left arm and left jaw, her left arm was numb and tingling. She reports occasional shortness of breath, lightheadedness and palpitations. She reports night sweats which she attributes to menopause. She reports her left hand has been tingling, numb and weak for the last year, and she reports recently having poor memory. She denies any nausea, vomiting, abdominal pain, diarrhea. She denies any chills or fever. She reports that she is supposed to be taking Coumadin, however has not taken in the last month due to insurance reasons. She reports she had an ablation for her A. fib approximately one year ago, but she can tell as she goes into A. fib occasionally with her palpitations and shortness of breath. Evaluation in the emergency department revealed normal troponin 0.00, normal BNP of 31, normal d-dimer 480, INR was subtherapeutic at 0.9. She is hyperglycemic with glucose of 398. Chest x-ray showed no acute process. EKG showed sinus rhythm with heart rate of 80. On exam, patient alert and oriented, in no acute distress. Heart had regular rate and rhythm. Lungs are clear bilaterally to auscultation. Past Med Surg Social Fam HX - Past Medical History Medical history: atrial fibrillation, COPD, CVA, diabetes, hyperlipidemia, hypertension, myocardial infarction Psychiatric history: anxiety, depression - Past Surgical History Surgical History: , cholecystectomy - Social History Smoking Status: Never smoker Smokeless Tobacco Status: No Alcohol use: none Drug use: none - Family History Mother Living Status: Hx Family Cardiac Disorders: Yes Hx Family Respiratory Disorders: Yes (copd) Hx Family Cancer: Yes (lung cancer) Hx Family Endocrine Disorder: Yes (DM type II) Father Adopted: No Family Member Ethnicity: Non- Living Status: Hx Family Cardiac Disorders: Yes Hx Family Cancer: Yes (stomach cancer) Hx Family Endocrine Disorder: Yes (DM) Internal Medicine - H&P: Meds Albuterol Sulfate [Proair Respiclick] 2 puff IH Q4H PRN 10/26/15 [History] Aspirin [Adult Low Dose Aspirin EC] 81 mg PO DAILY 10/26/15 [History] Etonogestrel [Nexplanon] 68 mg SQ AD 10/26/15 [History] Insulin ASPART [Novolog Flexpen] 2 - 10 unit SQ TID 10/26/15 [History] Lisinopril [Zestril] 5 mg PO DAILY 10/26/15 [History] Omeprazole [PriLOSEC] 40 mg PO DAILY 10/26/15 [History] Pregabalin [Lyrica] 100 mg PO BID 10/26/15 [History] Sertraline [Zoloft] 150 mg PO DAILY 10/26/15 [History] Trazodone HCl 50 - 100 mg PO HS PRN 10/26/15 [History] metFORMIN [Glucophage] 1,000 mg PO BIDWM 10/26/15 [History] Atorvastatin Calcium [Lipitor] 20 mg PO DAILY #0 04/17/16 [Rx] Ibuprofen [Motrin] 600 mg PO Q6-8H PRN #30 tab 05/21/16 [Rx] Insulin Glargine,Hum.rec.anlog [Lantus Solostar] 50 unit SQ BID 30 Days [Rx] Metoprolol [Lopressor] 25 mg PO BID 30 Days 08/19/16 [Rx] Dicyclomine [Bentyl] 10 mg PO QID PRN #20 capsule 08/29/16 [Rx] Ondansetron ODT [Zofran ODT] 4 mg SL Q6HR #10 tab.rapdis 09/12/16 [Rx] Enoxaparin [Lovenox] 90 mg SQ Q12HR #14 syringe 10/02/16 [Rx] Warfarin [Coumadin] 5 mg PO DAILY@1800 #30 tablet 10/02/16 [Rx] clonazePAM [Klonopin] 0.5 mg PO HS #8 tablet 10/02/16 [Rx] Cephalexin [Keflex] 500 mg PO TID #30 capsule 11/22/16 [Rx] HydrOXYzine Pamoate [Vistaril] 50 mg PO TID #15 capsule 11/22/16 [Rx] HYDROcodone/Acet 5/325 mg [[place] 5-325 mg] 1 tab PO Q6H PRN #10 tab 11/24/16 [Rx ] Allergies No Known Allergies Allergy (Verified 02/05/17 18:51) All Systems PM: A 10-system review of systems was performed and is negative for pertinent findings except as documented above in the HPI. - Constitutional Constitutional: night sweats, no chills, no fever(s) - EENT Eyes: no change in vision, no discharge, no pain, no photophobia Ears: no ear discharge, no ear pain, no tinnitus Nose, mouth and throat: no dysphagia, no nasal discharge, no neck pain, no sore throat - Cardiovascular Cardiovascular ROS IM: chest pain, dyspnea, lightheadedness, palpitations, no diaphoresis, no syncope - Respiratory Respiratory: no cough, no dyspnea, no wheezing, no excessive phlegm production - Gastrointestinal Gastrointestinal: no abdominal pain, no diarrhea, no hematemesis, no hematochezia, no melena, no nausea, no vomiting - Genitourinary Genitourinary: no change in urinary stream, no dysuria, no flank pain, no hematuria - Musculoskeletal Musculoskeletal ROS IM: numbness (left arm), tingling (Left arm) - Integumentary Integumentary IM: no rash, no unusual bruising - Neurological Neurological ROS: memory loss, no confusion, no convulsions, no focal weakness, no numbness, no tingling, no tremor(s) - Hematologic/Lymphatic Hematologic/Lymphatic: no easy bruising - Constitutional Vitals: Temp Pulse Resp BP Pulse Ox 98.2 F 67 18 141/74 98 02/05/17 18:59 02/05/17 18:59 02/05/17 18:59 02/05/17 18:59 02/05/17 18:59 General appearance: Present: A&O X 3, obese - Head Head exam: Present: atraumatic, normocephalic - Eye Eye exam: Present: PERRL, conjuntiva pink, sclera anicteric Pupils: Present: PERRL - Neck Neck exam general surgery: Present: supple, trachea midline. Absent: lymphadenopathy - Respiratory Respiratory exam: Present: CTAB. Absent: accessory muscle use, rales, rhonchi, wheezes - Cardiovascular Cardiovascular exam: Present: RRR, +S1, +S2. Absent: diastolic murmur, gallop, rubs, systolic murmur - GI/Abdominal GI/Abdominal exam: Present: normal bowel sounds, soft, no peritoneal signs. Absent: distended, tenderness - Extremities Exam Extremities exam: Present: warm, radial pulses palpable and symetrical. Absent : calf tenderness, cyanotic, pedal edema - Neurological Exam Neurological exam: Present: CN II-XII intact, oriented X3, no focal deficits. Absent: facial droop, speech deficit - Skin Skin exam: Present: dry, intact Internal Med - H&P Results - Labs CBC & Chem 7: 02/05/17 17:22 02/05/17 17:22 Labs: All Lab Results (24 Hours) 02/05/17 02/05/17 02/05/17 Range/Units 17:22 17:22 17:22 WBC 7.0 (4.3-11.1) K/mcL RBC 4.82 (3.82-4.97) M/mcL Hgb 11.9 (11.5-15.4) g/dL Hct 37.1 (35.3-44.9) % MCV 77.0 L (83.0-100.0) fL MCH 24.7 L (28.0-33.3) pg MCHC 32.1 (31.6-35.5) g/dL RDW 15.8 H (11.5-14.5) % Plt Count 218 (140-400) K/mcL MPV 10.1 (9.4-12.4) fL Immature Gran % 0.6 (0-4) % Seg Neutrophils % 70.6 % Lymphocytes % 23.5 % Monocytes % 3.9 % Eosinophils % 1.0 % Basophils % 0.4 % Neutrophils # 5.0 (1.6-8.9) K/mcL Lymphocytes # 1.7 (0.6-4.6) K/mcL Monocytes # 0.3 (0.0-1.3) K/mcL Eosinophils # 0.1 (0.0-0.6) K/mcL Basophils # 0.0 (0.0-0.2) K/mcL PT 10.1 (9.4-12.1) Seconds INR 0.9 APTT 26.2 (26.0-36.0) Seconds D-Dimer 480 (0-500) ng/mLFEU Sodium (136-145) mEq/L Potassium (3.5-4.5) mEq/L Chloride (98-109) mEq/L Carbon Dioxide (19-29) mEq/L BUN (7-20) mg/dL Creatinine (0.57-1.11) mg/dL Est GFR ( Amer) (> 60) Est GFR (Non-Af Amer) (> 60) BUN/Creatinine Ratio (6-26) Glucose (70-99) mg/dL POC Glucose (58-89) Calculated Osmolality (280-300) Calcium (8.6-10.8) mg/dL Troponin I (0-0.03) ng/mL B-Natriuretic Peptide 31 (0-100) pg/mL 02/05/17 02/05/17 02/05/17 Range/Units 17:22 17:22 19:06 WBC (4.3-11.1) K/mcL RBC (3.82-4.97) M/mcL Hgb (11.5-15.4) g/dL Hct (35.3-44.9) % MCV (83.0-100.0) fL MCH (28.0-33.3) pg MCHC (31.6-35.5) g/dL RDW (11.5-14.5) % Plt Count (140-400) K/mcL MPV (9.4-12.4) fL Immature Gran % (0-4) % Seg Neutrophils % % Lymphocytes % % Monocytes % % Eosinophils % % Basophils % % Neutrophils # (1.6-8.9) K/mcL Lymphocytes # (0.6-4.6) K/mcL Monocytes # (0.0-1.3) K/mcL Eosinophils # (0.0-0.6) K/mcL Basophils # (0.0-0.2) K/mcL PT (9.4-12.1) Seconds INR APTT (26.0-36.0) Seconds D-Dimer (0-500) ng/mLFEU Sodium 138 (136-145) mEq/L Potassium 3.3 L (3.5-4.5) mEq/L Chloride 107 (98-109) mEq/L Carbon Dioxide 21 (19-29) mEq/L BUN 9 (7-20) mg/dL Creatinine 0.78 (0.57-1.11) mg/dL Est GFR ( Amer) > 60 (> 60) Est GFR (Non-Af Amer) > 60 (> 60) BUN/Creatinine Ratio 12 (6-26) Glucose 398 H (70-99) mg/dL POC Glucose 297 H (58-89) Calculated Osmolality 301 H (280-300) Calcium 9.2 (8.6-10.8) mg/dL Troponin I 0.00 (0-0.03) ng/mL B-Natriuretic Peptide (0-100) pg/mL - Diagnostic Studies Chest x-ray Additional comments: Chest X-Ray 02/05/17 16:52 IMPRESSION: No acute process. D/ / Max Nagel MD / Max Nagel MD Interpreting Provider: Max Nagel MD <Regan Browning H - Last Filed: 02/06/17 07:29> Date of Encounter: 02/06/17 Internal Medicine - H&P: HPI History of present illness: Ms. Jacome is a 51 year old female All Systems PM: A 10-system review of systems was performed and is negative for pertinent findings except as documented above in the HPI. - Constitutional Vitals: Temp Pulse Resp BP Pulse Ox 97.8 F 70 15 132/83 94 02/06/17 03:19 02/06/17 03:19 02/06/17 03:19 02/06/17 03:19 02/06/17 03:19 Internal Med - H&P Results - Labs CBC & Chem 7: 02/05/17 17:22 02/06/17 00:29 Labs: BMP 02/06/17 00:29 Sodium 139 Potassium 3.4 L Chloride 108 Carbon Dioxide 22 BUN 9 Creatinine 0.80 Glucose 315 H Calcium 8.2 L Cardiac Enzymes 02/06/17 02/06/17 Range/Units 00:29 06:25 Troponin I 0.00 0.00 (0-0.03) ng/mL - Attending Attestation 1. Chest pain with history of CAD Continue aspirin, metoprolol, Lipitor, morphine and nitroglycerin as needed Telemetry, monitor troponins, check lipid panel in the morning Order a stress test for the morning 2. Paroxysmal atrial fibrillation, not on anticoagulation as she lost her insurance recently and has not been able to take her medications. She is high risk of strokes due to prior history of CVA Consult social media manager Start Lovenox until INR more than 2, resume Coumadin 3. 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 Diabetes type 2 insulin-dependent, restart long-acting insulin and insulin sliding scale 5. Hypokalemia, replete as needed 6. COPD not oxygen dependent, toenails as needed Omeprazole for GI prophylaxis and Lovenox for DVT prophylaxis. The patient will be admitted for observation. Full code. Time spent on this admission 40 minutes. High risk due to comorbidities. For this encounter, I have reviewed the NURSING RESIDENT or PA documentation, treatment plan, and medical decision making; and I have had face to face time with this patient.
[2017-02-05] MEDS: clonazePAM 0.5 MG TABLET PO SCH (21:25)
[2017-02-05] MEDS: Insulin DETEMIR 100 UNIT/ML X5UNITS SQ SCH (21:25)
[2017-02-05] MEDS: Pregabalin 50 MG CAPSULE PO SCH (21:25)
[2017-02-05] MEDS: *HR* Warfarin 5 MG TABLET PO SCH (21:25)
[2017-02-05] MEDS: *HR* HYDROcodone/Acet 5/325 mg TABLET PO PRN (21:29)
[2017-02-06 01:20] LABS: Prothrombin Time 10.3 Seconds (9.4-12.1)
[2017-02-06 01:29] LABS: BUN/Creatinine Ratio 11 (6-26); Blood Urea Nitrogen 9 mg/dL (7-20); Calcium 8.2 mg/dL (8.6-10.8); Carbon Dioxide 22 mEq/L (19-29); Chloride 108 mEq/L (98-109); Glucose 315 mg/dL (70-99); Osmolality,Calculated 299 (280-300); Potassium 3.4 mEq/L (3.5-4.5); Sodium 139 mEq/L (136-145); eGFR For African Americans > 60 (> 60); eGFR For Non-African Americans > 60 (> 60)
[2017-02-06 01:30] LABS: Chol/HDL Ratio 5.4 (0-4.9)
[2017-02-06] MEDS ORDERED: Regadenoson 0.4 MG/5 ML SYRINGE IVP ONE (05:54)
[2017-02-06] MEDS ORDERED: *HR* Enoxaparin 80 MG/0.8 ML SYRINGE SQ SCH (06:00)
[2017-02-06] MEDS: *HR* Morphine 2 MG/ML SYRINGE IVP PRN ×4 (06:15→22:19)
--- NOTE | 2017-02-06 08:54 | Nuclear Medicine Stress Report ---
Regadenoson Nuclear Stress Name: Christie Jacome Date of Study: 02/06/2017 Date: 1965 Ht: 61.0 in Medical Record#: [id number] Age: 51 Wt: 210.0 lb Gender: Female Order #: [id number] Location: [facility] IP Room: [facility] Supervising Provider: Chapincito Cristobal CNP Reading Physician: Agueda Donald DO Ordering Physician: Jade Benavides CNP Primary Care Physician: None Stress Technologist: Chrissy Alfaro, JM Application Coordinator: Melly Holt Indications: Chest Pain Impression: Perfusion imaging was negative for ischemia or infarct. Pharmacologic ECG was negative for ischemia at the level of heart rate achieved. Patient described chest pain before the procedure which persisted throughout testing. Gated EF = 56%. Recommend clinical correlation. History: Hypertension Diabetes Hypercholesteremia Stress Test Summary: Stress Test Type: Pharmacologic Regadenoson 0.4mg/5ml given IV Baseline Information: Initial Heart Rate: 59 Blood Pressure: 138/82 Stress Information: Test Terminated Due to (primary): As per protocol Maximum Blood Pressure: 138/74 Maximum Heart Rate: 80 Percent Maximum Heart Rate Achieved: 47 Double Product: [id number] METS Reached: 1 Symptoms: Chest pain Nuclear Summary: SPECT myocardial perfusion imaging using Tc99m Sestamibi given intravenously was performed at rest and following cardiac stress testing. The resting images were obtained following initial dose of 11.2 mCi. Following stress an additional dose of 34.4 mCi was given at peak exercise or 30 seconds post regadenoson infusion. Medication Given: Time Medication Dose Units Route Findings: Stress Note * Resting ECG demonstrated normal sinus rhythm with nonspecific ST abnormalities. * Pharmacologic stress ECG is negative for ischemia at level of heart rate achieved. * No arrhythmias were noted during stress. * Patient described 9/10 chest pain at the beginning of the test which persisted throughout testing ranging from 7-9/10 pain. Hemodynamic responses * Normal hemodynamic responses to pharmacologic stress. Study Quality * Study quality was fair. Gated EF % * Gated EF = 56%. Left Ventricle * The left ventricle is not dilated. TID * No evidence of transient ischemic dilatation. Lung Uptake * There is no evidence of increase lung uptake. NORMALS * Normal wall motion. PERFUSION * There is homogeneous rest and stress perfusion uptake without evidence for infarct or ischemia. Updated by Agueda Donald on 02/06/2017 8:49:03 AM electronically signed on 02/06/2017 8:50:02 AM with status of Final
[2017-02-06] MEDS: Insulin DETEMIR 100 UNIT/ML X5UNITS SQ SCH ×2 (09:37→20:13)
[2017-02-06] MEDS: *HR* HYDROcodone/Acet 5/325 mg TABLET PO PRN ×2 (09:38→15:16)
[2017-02-06] MEDS: Pregabalin 50 MG CAPSULE PO SCH ×2 (09:38→20:14)
[2017-02-06] MEDS: Aspirin Enteric Coated 81 MG Tablet PO SCH (09:38)
[2017-02-06] MEDS: Insulin LISPRO 300 UNITS/3 ML VIAL SQ SCH ×6 (09:45→18:07)
--- NOTE | 2017-02-06 13:55 | Electrocardiograph Report ---
[address] [place], [place] [address] Test Date: 2017-02-05 Pat Name: Christie Jacome Department: 102 Room: 3B16 Gender: F Airline Operations Agent: [place] : 1965 Requested By: Thien Blakely Order Number: [id number] Reading MD: Allen Caal MD Measurements Intervals [place] Rate: 80 P: 49 MS: 146 QRS: 29 QRSD: 100 T: 30 QT: 389 QTc: 425 Interpretive Statements SINUS RHYTHM LEFT ATRIAL ENLARGEMENT Electronically Signed On 02-06-2017 13:53:41 EDT by Allen Caal MD
[2017-02-06] MEDS: *HR* Enoxaparin 100 MG/ML SYRINGE SQ SCH (15:10)
--- NOTE | 2017-02-06 15:50 | Internal Med Progress Note ---
Date of Encounter: 02/06/17 Time of Encounter: 14:00 - Assessment and plan (1) Chest pain Current Visit: No Status: Acute Assessment and plan: Patient still complaining of intermittent chest pressure. She is endorsing generalized malaise. Chest x-ray negative. Stress test negative. Low suspicion for acute coronary syndrome. She has been placed back on her regular home medications, will observe overnight and likely discharge tomorrow pending clinical outcomes. ITS Impressions Chest X-Ray 02/05/17 16:52 IMPRESSION: No acute process. D/ / Max Nagel MD / Max Nagel MD Interpreting Provider: Max Nagel MD Regadenosen nuclear stress impression: Perfusion imaging was negative for ischemia or infarct. Pharmacologic ECG was negative for ischemia at the level of heart rate achieved. Patient described chest pain before the procedure was persisted throughout the testing. Gated ejection fraction equals 56%. Qualifiers: Chest pain type: unspecified Qualified Code(s): R07.9 - Chest pain, unspecified (2) CVA (cerebral vascular accident) Current Visit: No Status: Suspected Assessment and plan: Patient continues with left hand numbness. No motor compromise, computer applications engineer strength equal. She also had numbness on the left side of her face. Given her history, concern for possible CVA, will obtain an MRI. Chest vast score elevated (1pt hypertension, 1pt diabetes, 2 points prior CVA, 1 point female, 1pt vascular disease= 6). She has been put back on coumadin with a lovenox bridge. 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 She states that she then went without insurance for several months and recently got her insurance back just a couple weeks ago. According to pharmacy's note, patient had only been taking her metformin, trazodone, sertraline, atorvastatin and all of the other medications had not been filled since September. Confirmed with the manager social responsibility that she does currently have insurance. (5) Hyperlipemia Current Visit: No Status: Chronic Assessment and plan: Lipid panel mildly abnormal, she has been placed on back on a statin. She is requesting to see a dietitian as she is motivated to lose weight and improve her diet. Qualifiers: Hyperlipidemia type: unspecified Qualified Code(s): E78.5 - Hyperlipidemia , unspecified (6) Depression Current Visit: No Status: Chronic Assessment and plan: Denies suicidal ideation. Mood and affect stable Qualifiers: Depression Type: unspecified Qualified Code(s): F32.9 - Major depressive disorder, single episode, unspecified (7) Anxiety Current Visit: No Status: Chronic (8) History of cerebral hemorrhage Current Visit: No Status: Chronic (9) Hemiparesis affecting left side as late effect of stroke Current Visit: No Status: Inactive Assessment and plan: No focal neurological weakness is present on examination. Leg strength equal, computer applications engineer strength equal. Numbness noted to left hand but otherwise symptoms are unremarkable. MRI pending. (10) Paroxysmal atrial fibrillation Current Visit: Yes Status: Chronic Assessment and plan: Rate controlled. Placed back on Coumadin with Lovenox bridge given her elevated chads vasc score of 6 (11) Chronic anticoagulation Current Visit: No Status: Chronic (12) Facial paresthesia Current Visit: No Status: Resolved (13) DVT prophylaxis Current Visit: Yes Status: Acute Assessment and plan: On Coumadin with Lovenox bridge (14) HTN (hypertension) Current Visit: No Status: Chronic Assessment and plan: now normotensive with the resumption of her regular home medications. will trend Qualifiers: Hypertension type: essential hypertension Qualified Code(s): I10 - Essential (primary) hypertension (15) Hypokalemia Current Visit: Yes Status: Acute Assessment and plan: Mild, will trend (16) Type 2 diabetes mellitus Current Visit: Yes Status: Chronic Assessment and plan: Uncontrolled with an A1c of 11%. Patient had an insurance For several months earlier this year. We will place her back on her medications now that she has insurance. She is also requesting to see a dietitian Qualifiers: Diabetes mellitus complication status: with neurologic complications Diabetes mellitus complication detail: with polyneuropathy Diabetes mellitus terminal carman insulin use: with custodial use Qualified Code(s): E11.42 - Type 2 diabetes mellitus with diabetic polyneuropathy; Z79.4 - terminal operations manager (current) use of insulin (17) COPD (chronic obstructive pulmonary disease) Current Visit: Yes Status: Chronic Assessment and plan: no acute exacerbation. patient denies shortness of breath above her norm. Tolerating room air. Qualifiers: COPD type: chronic bronchitis Chronic bronchitis type: unspecified Qualified Code(s): J42 - Unspecified chronic bronchitis (18) Subtherapeutic international normalized ratio (INR) Current Visit: Yes Status: Acute Assessment and plan: lovenox bridge (19) Obesity (BMI 30-39.9) Current Visit: No Status: Chronic - Subjective Interval history: Patient seen and examined. On examination, patient sitting upright in bed. Patient stating she feels generally poor. She states that she simply does not feel well. She states that her left hand is still non-which is concerning for her. She states she is eating relatively well. - Constitutional Vitals: Temp Pulse Resp BP Pulse Ox 98.0 F 65 18 134/65 97 02/06/17 11:12 02/06/17 11:12 02/06/17 11:12 02/06/17 11:12 02/06/17 11:12 General appearance: Present: A&O X 3, pleasant, no acute distress, obese, answers questions appropriately - Head Head exam: Present: atraumatic, normocephalic - Eye Eye exam: Present: PERRL, conjuntiva pink, sclera anicteric Pupils: Present: PERRL - Neck Neck exam general surgery: Present: supple, trachea midline. Absent: lymphadenopathy - Respiratory Respiratory exam: Present: CTAB. Absent: accessory muscle use, rales, respiratory distress, rhonchi, wheezes - Cardiovascular Cardiovascular exam: Present: RRR, +S1, +S2. Absent: diastolic murmur, gallop, rubs, systolic murmur - GI/Abdominal GI/Abdominal exam: Present: normal bowel sounds, soft, no peritoneal signs. Absent: distended, tenderness - Extremities Exam Extremities exam: Present: warm, radial pulses palpable and symetrical. Absent : calf tenderness, cyanotic, pedal edema - Expanded Upper Extremities Exam Hand wrist exam: Present: normal inspection Vascular exam: Present: normal capillary refill. Absent: vascular compromise ( sensation affected to left hand) - Neurological Exam Neurological exam: Present: alert, CN II-XII intact, oriented X3, no focal deficits, strengths equal and symetr throughout. Absent: pronater drift, facial droop, speech deficit - Expanded Neurological Exam Neurological exam expanded: Present: protecting the airway Patient oriented to: Present: person, place, time Speech: Present: fluid speech Cranial Nerves: EOM's intact PM: Normal, gag reflex PM: Normal Neuro motor strength exam: LUE: 5 (Left hand numb, no muscular weakness), RUE: 5 , LLE: 5, RLE: 5 Coma Scale Eye Opening: Spontaneous Coma Scale Motor Response: Obeys Commands Coma Scale Verbal Response: Oriented Coma Scale Total: 15 - Skin Skin exam: Present: dry, intact, pallor, warm Internal Medicine: Result - Labs CBC & Chem 7: 02/05/17 17:22 02/06/17 00:29 Labs: BMP 02/06/17 00:29 Sodium 139 Potassium 3.4 L Chloride 108 Carbon Dioxide 22 BUN 9 Creatinine 0.80 Glucose 315 H Calcium 8.2 L Cardiac Enzymes 02/06/17 02/06/17 Range/Units 00:29 06:25 Troponin I 0.00 0.00 (0-0.03) ng/mL - ABG Interpretation ABG results: PT/INR, D-dimer PT 10.3 Seconds (9.4-12.1) 02/06/17 00:29 D-Dimer 480 ng/mLFEU (0-500) 02/05/17 17:22 Consult Discharge Plan - Plan Referrals: NO,PCP [Primary Care Provider] -
[2017-02-06] MEDS ORDERED: Warfarin perPT PO PRN (18:00)
[2017-02-06] MEDS: *HR* Warfarin 5 MG TABLET PO SCH (18:08)
[2017-02-06] MEDS: 0.9 % Sodium Chloride 1,000 ML IVC SCH (20:12)
[2017-02-06] MEDS: clonazePAM 0.5 MG TABLET PO SCH (20:13)
[2017-02-06 23:05] LABS: Bilirubin,Urine Negative (Negative); Blood,Urine Negative (Negative); Clarity,Urine Clear (Clear); Color,Urine Yellow (Yellow); Glucose,Urine (UA) Normal (Normal); Ketones,Urine Negative (Negative); Leukocyte Esterase,Urine Trace (Negative); Nitrite,Urine Negative (Negative); Protein,Urine Negative (Neg-Trace); Specific Gravity,Urine 1.008 (1.010-1.025); Urobilinogen,Urine Normal (Normal)
[2017-02-06 23:08] LABS: Bacteria,Urine None Seen per hpf (None-Few); Hyaline Casts,Urine None Seen per lpf (None-Few); RBC,Urine 0-3 per hpf (0-3); Squamous Epithelial Cell,Urine Many per lpf (None-Few); WBC,Urine 0-3 per hpf (0-3)
[2017-02-07] MEDS: *HR* Morphine 2 MG/ML SYRINGE IVP PRN ×2 (03:15→08:43)
[2017-02-07 05:05] LABS: INR 0.9; Prothrombin Time 9.8 Seconds (9.4-12.1)
[2017-02-07 05:14] LABS: BUN/Creatinine Ratio 12 (6-26); Blood Urea Nitrogen 8 mg/dL (7-20); Calcium 8.4 mg/dL (8.6-10.8); Carbon Dioxide 23 mEq/L (19-29); Chloride 109 mEq/L (98-109); Glucose 307 mg/dL (70-99); Osmolality,Calculated 296 (280-300); Potassium 3.3 mEq/L (3.5-4.5); Sodium 138 mEq/L (136-145); eGFR For African Americans > 60 (> 60); eGFR For Non-African Americans > 60 (> 60)
[2017-02-07] MEDS: *HR* Enoxaparin 100 MG/ML SYRINGE SQ SCH ×2 (06:34→17:08)
[2017-02-07] MEDS: Aspirin Enteric Coated 81 MG Tablet PO SCH (08:34)
[2017-02-07] MEDS: Insulin DETEMIR 100 UNIT/ML X5UNITS SQ SCH ×2 (08:34→21:15)
[2017-02-07] MEDS: Insulin LISPRO 300 UNITS/3 ML VIAL SQ SCH ×6 (08:35→17:09)
[2017-02-07] MEDS: Pregabalin 50 MG CAPSULE PO SCH ×2 (08:35→21:15)
[2017-02-07] MEDS: *HR* HYDROcodone/Acet 5/325 mg TABLET PO PRN ×2 (12:33→18:35)
--- NOTE | 2017-02-07 12:35 | Internal Med Progress Note ---
Date of Encounter: 02/07/17 Time of Encounter: 09:30 - Assessment and plan (1) Abnormal urinalysis Current Visit: Yes Status: Acute Assessment and plan: Abnormal urinalysis noted. In review of her chart, earlier this year, patient had a urinary tract infection and she was sent home on IV vancomycin. We will await urine culture results prior to discharge. It appears as if urine culture was just sent last night, should have preliminary report tomorrow morning. If negative, anticipate discharge. Patient denying dysuria but states she is having vaginal itching. We will treat for yeast infection and await urine culture. (2) Chest pain Current Visit: No Status: Acute Assessment and plan: Patient still complaining of intermittent chest pressure. She is endorsing generalized malaise. Chest x-ray negative. Stress test negative. Low suspicion for acute coronary syndrome. She has been placed back on her regular home medications, will continue to observe. Urine culture pending (was on IV antibiotics earlier this year for UTI with MRSA). ITS Impressions Chest X-Ray 02/05/17 16:52 IMPRESSION: No acute process. D/ / Max Nagel MD / Max Nagel MD Interpreting Provider: Max Nagel MD Regadenosen nuclear stress impression: Perfusion imaging was negative for ischemia or infarct. Pharmacologic ECG was negative for ischemia at the level of heart rate achieved. Patient described chest pain before the procedure was persisted throughout the testing. Gated ejection fraction equals 56%. Qualifiers: Chest pain type: unspecified Qualified Code(s): R07.9 - Chest pain, unspecified (3) CVA (cerebral vascular accident) Current Visit: No Status: Ruled-out Assessment and plan: Patient continues with left hand numbness and now has intermittent right foot numbness. No motor compromise, certified wellness program coordinator strength equal; leg strength 5/5. MRI ruled out acute CVA. Likely diabetic neuropathy as she states that her glucoses have been running 500-600 for months since she was unable to take her medication from September until now. Still has an elevated Chadsvasc (1pt hypertension, 1pt diabetes, 2 points prior CVA, 1 point female, 1pt vascular disease= 6). She has been put back on coumadin with a lovenox bridge. 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 She states that she then went without insurance for several months and recently got her insurance back just a couple weeks ago. According to pharmacy's note, patient had only been taking her metformin, trazodone, sertraline, atorvastatin and all of the other medications had not been filled since September. Confirmed with the web content & social media manager that she does currently have insurance. (6) Hyperlipemia Current Visit: No Status: Chronic Assessment and plan: Lipid panel mildly abnormal, she has been placed on back on a statin. She is requesting to see a dietitian as she is motivated to lose weight and improve her diet. Qualifiers: Hyperlipidemia type: unspecified Qualified Code(s): E78.5 - Hyperlipidemia , unspecified (7) Depression Current Visit: No Status: Chronic Assessment and plan: Denies suicidal ideation. Mood and affect stable with flat affect Qualifiers: Depression Type: unspecified Qualified Code(s): F32.9 - Major depressive disorder, single episode, unspecified (8) Anxiety Current Visit: No Status: Chronic (9) History of cerebral hemorrhage Current Visit: No Status: Chronic (10) Hemiparesis affecting left side as late effect of stroke Current Visit: No Status: Inactive Assessment and plan: No focal neurological weakness is present on examination. Leg strength equal, certified wellness program coordinator strength equal. Numbness noted to left hand and right foot but otherwise symptoms are unremarkable. MRI negative. Patient has a documented history of conversion disorder as well. Will also treat for diabetic neuropathies and stress importance of controlling her glucose levels. (11) Paroxysmal atrial fibrillation Current Visit: Yes Status: Chronic Assessment and plan: Rate controlled. Placed back on Coumadin with Lovenox bridge given her elevated chads vasc score of 6 (12) Chronic anticoagulation Current Visit: No Status: Chronic (13) Facial paresthesia Current Visit: No Status: Resolved (14) DVT prophylaxis Current Visit: Yes Status: Acute Assessment and plan: On Coumadin with Lovenox bridge (15) HTN (hypertension) Current Visit: No Status: Chronic Assessment and plan: now normotensive with the resumption of her regular home medications. will trend Qualifiers: Hypertension type: essential hypertension Qualified Code(s): I10 - Essential (primary) hypertension (16) Hypokalemia Current Visit: Yes Status: Acute Assessment and plan: Mild, will trend (17) Type 2 diabetes mellitus Current Visit: Yes Status: Chronic Assessment and plan: Uncontrolled with an A1c of 11%. Patient had lost insurance from September until this visit. We will place her back on her medications now that she has insurance. She is also requesting to see a dietitian Qualifiers: Diabetes mellitus complication status: with neurologic complications Diabetes mellitus complication detail: with polyneuropathy Diabetes mellitus automobile designer insulin use: with automobile designer use Qualified Code(s): E11.42 - Type 2 diabetes mellitus with diabetic polyneuropathy; Z79.4 - intermediate (current) use of insulin (18) COPD (chronic obstructive pulmonary disease) Current Visit: Yes Status: Chronic Assessment and plan: no acute exacerbation. patient denies shortness of breath above her norm. Tolerating room air. Qualifiers: COPD type: chronic bronchitis Chronic bronchitis type: unspecified Qualified Code(s): J42 - Unspecified chronic bronchitis (19) Subtherapeutic international normalized ratio (INR) Current Visit: Yes Status: Acute Assessment and plan: lovenox bridge (20) Obesity (BMI 30-39.9) Current Visit: No Status: Chronic - Subjective Interval history: Patient seen and examined. On examination, patient sitting upright in bed. Patient stating she feels generally poor. She again states that she simply does not feel well. She states that her left hand is still numb and states that now her right foot is numb which is concerning for her. She states she is eating relatively well. She denies dysuria but complains of vaginal itching. - Constitutional Vitals: Temp Pulse Resp BP Pulse Ox 98.2 F 65 16 136/86 95 02/07/17 11:31 02/07/17 11:31 02/07/17 11:31 02/07/17 11:31 02/07/17 11:31 General appearance: Present: A&O X 3, pleasant, no acute distress, obese, answers questions appropriately - Head Head exam: Present: atraumatic, normocephalic - Eye Eye exam: Present: PERRL, conjuntiva pink, sclera anicteric Pupils: Present: PERRL - Neck Neck exam general surgery: Present: supple, trachea midline. Absent: lymphadenopathy - Respiratory Respiratory exam: Present: CTAB. Absent: accessory muscle use, rales, respiratory distress, rhonchi, wheezes - Cardiovascular Cardiovascular exam: Present: RRR, +S1, +S2. Absent: diastolic murmur, gallop, rubs, systolic murmur - GI/Abdominal GI/Abdominal exam: Present: distended, normal bowel sounds, soft, no peritoneal signs. Absent: tenderness - Extremities Exam Extremities exam: Present: warm, radial pulses palpable and symetrical. Absent : calf tenderness, cyanotic, pedal edema - Neurological Exam Neurological exam: Present: alert, CN II-XII intact, normal gait, oriented X3, no focal deficits, strengths equal and symetr throughout. Absent: pronater drift, facial droop, speech deficit - Psychiatric Psychiatric exam: Present: flat affect. Absent: suicidal ideation - Skin Skin exam: Present: dry, intact, pallor, warm Internal Medicine: Result - Labs CBC & Chem 7: 02/05/17 17:22 02/07/17 04:12 Labs: BMP 02/07/17 04:12 Sodium 138 Potassium 3.3 L Chloride 109 Carbon Dioxide 23 BUN 8 Creatinine 0.67 Glucose 307 H Calcium 8.4 L Urine 02/06/17 Range/Units 22:25 Urine Color Yellow (Yellow) Urine Clarity Clear (Clear) Urine pH 6.0 (5.0-8.0) pH Units Ur Specific Bertrand 1.008 L (1.010-1.025) Urine Protein Negative (Neg-Trace) mg/dL Urine Glucose (UA) Normal (Normal) mg/dL - ABG Interpretation ABG results: PT/INR, D-dimer PT 9.8 Seconds (9.4-12.1) 02/07/17 04:12 D-Dimer 480 ng/mLFEU (0-500) 02/05/17 17:22 - Impressions Impressions Brain MRI 02/06/17 15:57 IMPRESSION: No evidence of acute intracranial abnormality. Mild bilateral mastoiditis. D/ / 02/06/2017 17:22:46 Abdullahi Calderon MD / ariana Interpreting Provider: Abdullahi Calderon MD Consult Discharge Plan - Plan Referrals: Joanne Paez MD [Partnered Physician] - 02/13/17 10:45 am
[2017-02-07] MEDS ORDERED: Fluconazole 100 MG TABLET PO ONE (12:42)
[2017-02-07] MEDS ORDERED: *HR* Warfarin 7.5 MG TABLET PO ONE (18:00)
[2017-02-07] MEDS: clonazePAM 0.5 MG TABLET PO SCH (21:15)
[2017-02-08] MEDS: *HR* HYDROcodone/Acet 5/325 mg TABLET PO PRN ×2 (00:23→06:48)
[2017-02-08 03:07] LABS: INR 1.2; Prothrombin Time 12.5 Seconds (9.4-12.1)
[2017-02-08 03:16] LABS: BUN/Creatinine Ratio 14 (6-26); Blood Urea Nitrogen 10 mg/dL (7-20); Calcium 8.9 mg/dL (8.6-10.8); Carbon Dioxide 22 mEq/L (19-29); Chloride 109 mEq/L (98-109); Glucose 235 mg/dL (70-99); Osmolality,Calculated 295 (280-300); Sodium 139 mEq/L (136-145); eGFR For African Americans > 60 (> 60); eGFR For Non-African Americans > 60 (> 60)
[2017-02-08] MEDS: *HR* Enoxaparin 100 MG/ML SYRINGE SQ SCH (06:49)
[2017-02-08 07:31] VITALS: BP 156/84
[2017-02-08] MEDS: Insulin LISPRO 300 UNITS/3 ML VIAL SQ SCH ×2 (08:29)
[2017-02-08] MEDS: Pregabalin 50 MG CAPSULE PO SCH (08:30)
[2017-02-08] MEDS: Insulin DETEMIR 100 UNIT/ML X5UNITS SQ SCH (08:30)
[2017-02-08] MEDS: Aspirin Enteric Coated 81 MG Tablet PO SCH (08:30)
--- NOTE | 2017-02-08 10:26 | Discharge Summary ---
Date of Encounter: 02/08/17 Time of Encounter: 08:30 - Discharge Diagnosis (1) Conversion disorder Priority: Secondary Status: Chronic Comments: in review of her chart, it does not appear as if the patient has had a CVA. I am also unable to determine if the patient has had reoccurence of her afib since ablation 1 year ago. She has been seen numerous times for CP and Paresthsias, and there does not appear to be any acute findings identified. She has continually asked for narcotic pain medication as well as her Clonazepam (DC'd by her PCP). (2) Abnormal urinalysis Priority: Primary Status: Ruled-out Comments: Abnormal urinalysis noted. In review of her chart, earlier this year, patient had a urinary tract infection and she was sent home on IV vancomycin so she was kept admitted while awaiting urine culture which was mixed and unable to be interpreted. Low suspicion for UTI- treated for yeast infection. Followup outpatient. (3) Chest pain Priority: Primary Status: Acute Comments: ACS ruled out. Patient continued to endorse chest pain and continued to continually asked for more pain medication. Recommend follow-up outpatient. She has been restarted on all of her regular home medications. Qualifiers: Chest pain type: unspecified Qualified Code(s): R07.9 - Chest pain, unspecified (4) CVA (cerebral vascular accident) Priority: Primary Status: Ruled-out Comments: MRI negative; no acute infarcts Qualifiers: CVA mechanism: unspecified Qualified Code(s): I63.9 - Cerebral infarction, unspecified (5) Left hand paresthesia Priority: Primary Status: Acute Comments: no motor difficulties. Patients paresthesias changed daily- likely diabetic neuropathy vs prior dx of conversion disorder (6) Insurance coverage problems Priority: Primary Status: Resolved (7) Hyperlipemia Priority: Secondary Status: Chronic Comments: Lipid panel mildly abnormal, she has been placed on back on a statin. She requested and saw a dietitian while admitted stating she is motivated to lose weight and improve her diet. Qualifiers: Hyperlipidemia type: unspecified Qualified Code(s): E78.5 - Hyperlipidemia , unspecified (8) Depression Priority: Secondary Status: Chronic Comments: mood and affect flat but she denied suicidal ideations Qualifiers: Depression Type: unspecified Qualified Code(s): F32.9 - Major depressive disorder, single episode, unspecified (9) Anxiety Priority: Secondary Status: Chronic (10) History of cerebral hemorrhage Priority: Secondary Status: Chronic (11) Hemiparesis affecting left side as late effect of stroke Priority: Secondary Status: Inactive Comments: No focal neurological weakness is present on examination. 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 Numbness noted to left hand and right foot inconsistent and otherwise symptoms are unremarkable. MRI negative. Patient has a documented history of conversion disorder as well. Will also treat for diabetic neuropathies and stress importance of controlling her glucose levels. (12) Paroxysmal atrial fibrillation Priority: Secondary Status: Chronic Comments: Rate controlled. Placed back on Coumadin with Lovenox bridge given her elevated chads vasc score of 6. In review of her chart, when she was on Coumadin, she was rarely therapeutic, and her PCP had taken her off of it in October. Will take her off lovenox and coumadin . She had an ablation one year ago and has not had any documented evidence of recurrence of her atrial fibrillation. I reviewed her telemetry from this visit without any atrial fibrillation noted. Will leave anticoagulation therapy at the discretion of her primary care provider (13) Chronic anticoagulation Priority: Secondary Status: Chronic Comments: See prior note for PAF (14) Facial paresthesia Priority: Primary Status: Resolved (15) DVT prophylaxis Priority: Primary Status: Acute Comments: coumadin with lovenox bridge while admitted (16) HTN (hypertension) Priority: Secondary Status: Chronic Comments: normotensive with the resumption of her regular home medications. Follow up outpatient Qualifiers: Hypertension type: essential hypertension Qualified Code(s): I10 - Essential (primary) hypertension (17) Hypokalemia Priority: Primary Status: Resolved (18) Type 2 diabetes mellitus Priority: Secondary Status: Chronic Comments: Uncontrolled with an A1c of 11%. Patient had lost insurance from September until this visit. We will place her back on her medications now that she has insurance. 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 patient denies shortness of breath above her norm. Tolerated room air while admitted Qualifiers: COPD type: chronic bronchitis Chronic bronchitis type: unspecified Qualified Code(s): J42 - Unspecified chronic bronchitis (20) Subtherapeutic international normalized ratio (INR) Priority: Primary Status: Inactive (21) Obesity (BMI 30-39.9) Priority: Secondary Status: Chronic - Discharge Medications Prescriptions: Albuterol Sulfate [Proair Respiclick] 2 puff IH Q4H PRN #1 PRN Reason: Shortness Of Breath Aspirin Enteric Coated [Aspirin EC] 81 mg PO DAILY #30 Dicyclomine [Bentyl] 10 mg PO QID PRN #20 capsule PRN Reason: Pain HydrOXYzine Pamoate [Vistaril] 50 mg PO TID #15 capsule Lisinopril [Zestril] 5 mg PO DAILY #30 Metoprolol [Lopressor] 25 mg PO BID 30 Days Omeprazole [PriLOSEC] 20 mg PO 0630 #30 Home Medications: Aspirin [Adult Low Dose Aspirin EC] 81 mg PO DAILY 10/26/15 [History] Etonogestrel [Nexplanon] 68 mg SQ AD 10/26/15 [History] Sertraline [Zoloft] 150 mg PO DAILY 10/26/15 [History] Trazodone HCl 50 - 100 mg PO HS PRN 10/26/15 [History] metFORMIN [Glucophage] 1,000 mg PO BIDWM 10/26/15 [History] Atorvastatin Calcium [Lipitor] 20 mg PO DAILY #0 04/17/16 [Rx] Ibuprofen [Motrin] 600 mg PO Q6-8H PRN #30 tab 05/21/16 [Rx] Insulin Glargine,Hum.rec.anlog [Lantus Solostar] 50 unit SQ BID 30 Days [Rx] Cephalexin [Keflex] 500 mg PO TID #30 capsule 11/22/16 [Rx] Albuterol Sulfate [Proair Respiclick] 2 puff IH Q4H PRN #1 02/08/17 [Rx] Aspirin Enteric Coated [Aspirin EC] 81 mg PO DAILY #30 02/08/17 [Rx] Dicyclomine [Bentyl] 10 mg PO QID PRN #20 capsule 07/28/17 [Rx] HydrOXYzine Pamoate [Vistaril] 50 mg PO TID #15 capsule 02/08/17 [Rx] Lisinopril [Zestril] 5 mg PO DAILY #30 02/08/17 [Rx] Metoprolol [Lopressor] 25 mg PO BID 30 Days 02/08/17 [Rx] Omeprazole [PriLOSEC] 20 mg PO 0630 #30 02/08/17 [Rx] Allergies/Adverse Reactions: Allergies No Known Allergies Allergy (Verified 02/05/17 18:51) Procedures/tests Complete & Pending: Procedures Performed prior 72 hours Category Date Time Status NM asia perf SPECT multi [NM] Routine Exams 02/05/17 18:33 Taken MR head/brain wo con [MR] Routine MRI 02/06/17 15:57 Completed SP pharm nuclear stress Routine Y 02/06/17 07:05 Completed Date of admission: 02/05/17 18:12 Primary care physician: PCP NO Consults: 02/05/17 18:41 Consult to Food Services Director [CONS] Routine Reason for SW Consult: lost insurance 02/06/17 15:59 consult to kettle chipper [Consult to Nutrition] [CONS] Routine Comment: pt requesting to see kettle chipper; wants to lose wt Consulting Provider: NUTRITION Reason for Dietary Consult: Diet Education Discharging clinician: Jade Benavides Anticipated date of discharge: 02/08/17 (has PCP appt in 5 days) - Patient Status Disposition: Home, Self-Care Condition: Good Functional capacity at discharge: independent ambulation Overall status at discharge: patient is back to baseline - Discharge Instructions Follow Up With: Joanne Paez MD [Partnered Physician] - 02/13/17 10:45 am Additional Instructions: Follow-up with your primary care provider as scheduled - Diet and Activity Activity: increase activity as tolerated Diet: diabetic diet, low fat, low cholesterol, low salt diet Hospital course: Ms. Jacome is a 51 year old female with past medical history of hypertension, hyperlipidemia, COPD, paroxysmal atrial fibrillation, CAD, diabetes, history of DVT and PE, history of small hemorrhagic CVA. Patient presented to the emergency room for chief complaint of chest pain. Patient stating she has had chest pain on and off in the past and states that she felt as if she was doing well until the day of presentation when she had a sudden onset of chest pain that felt like pressure with stabbing and radiated to her left arm and left jaw. She also stated that her left arm was numb and tingling. Patient also endorsed occasional shortness of breath, lightheadedness, and palpitations. Patient also reported night sweats which she attributed to menopause. Patient also endorsed that her left hand has been tingling, numb, and weak for the past year and she also reports having a poor memory. She denies nausea, vomiting, abdominal pain, diarrhea. Patient stating she lost her insurance and September and has only recently got it back. She states she has not been taking her medications as a result of insurance issues. Patient stating she had an ablation for atrial fibrillation approximately one year ago but states that she can tell when she goes into A. fib occasionally with her palpitations and shortness of breath. Workup in the emergency department unremarkable. Chest x- ray negative. Patient was admitted to the hospitalist service for further evaluation and management. During this admission, the patient complained of persistent chest pain/pressure as well as paresthesias that were in different locations daily. Troponins negative x 3. Nuclear stress test negative and revealed an ejection fraction of 56%. ACS ruled out. At times while admitted, patient complained of numbness to various locations that differed daily. In further review of her chart, she has been seen multiple times for suspected CVA' s. She most recently saw Neurologist Dr Flores on 10/01/16 and at that time he charted that "Still has left sided weakness although MRI of brain showed no evidence of cerebral infarct. Patient relates that she has had stroke in the past, few years ago, resulting in left sided paresis and she says that she was treated here at [facility] but in our imaging system i found 6 MRI of brain scans since 2009 and none of them showed evidence of acute infarct. No abnormal T2 or FLAIR signal changes are present to indicate history of previous infarct. The patient also has a 'conversion disorder' as one of the medical condition listed. The neurological presentation this time are worsening of weakness not associated with significant speech difficulty or mental status changes. Her neurological presentation certainly raise the suspicion of another encounter of conversion disorder. Psychiatric evaluation can certainly be beneficial." Recommend outpatient followup- no further testing indicated from an inpatient perspective regarding her paresthesias. She did have an abnormal urinalysis but denied dysuria. She did have some itching and white vaginal discharge and was treated for a yeast infection. She had been on IV antibiotics at home earlier this year for UTI with MRSA however, during this visit, her urine culture was negative. Regarding her chronic anticoagulation, I have reviewed her chart in [facility] and in [facility]. In [facility], her PCP Dr Paez took her off of anticoagulation on 11/02/16 stating: "reviewed records and am documenting my reasons for not continuing coumadin here : 1. Patient is not consistent with following up in office or with getting labs 2. Patient has a history of a possible small subarachnoid hemorrhage in the past , in the past year 3. pt has a history of GI bleed in the last year 4. I am not convinced by reviewing patient's records and by knowing patient that she has indeed had a CVA; head imaging studies, including MRIs and CTs have never supported this diagnosis despite multiple presentations with multiple neurological type symptoms 5. Patient does have a history of documented atrial fibrillation, however she then underwent ablation and since then, to my knowledge has not had further episodes. I reviewed what hospital information I could from her most recent hospitalization and even though it is documented that she has paroxysmal atrial fibrillation, I did not see any evidence of this on rhythm strips, EKGs, or the 2-D echocardiogram which was done .she also had no left atrial thrombus on 2-D echocardiogram. 6. Patient also has a history of vaginal bleeding to the point where her hemoglobin has been in the 8-9 range, when on previous anticoagulation" Patient then reportedly had not shown up to several appointments, so she was placed on baby ASA only. I will continue this at this time and hold off on further anticoagulation therapy to be added at the discretion of her PCP. I have reviewed her telemetry from this visit, and there were no signs of afib on telemetry. Regarding her uncontrolled diabetes with A1c of 11%, she was unable to afford her diabetes medications when she did not have insurance. Just 2 days ago, on 02/06/17, her PCP started her back on Lantus 50u daily and had sent the Rx to be mailed to her house. I will not adjust her diabetes medications and defer to her PCP. Also regarding her medications, she continually asked for more narcotic pain medication as well as her Clonazepam. She saw her PCP on 01/29/17 and her Clonazepam was stopped and she was placed on Trazodone. She then called in on 02/05 stating the Trazodone was not working, and her PCP added melatonin. I will not renew her Clonazepam and will defer to her PCP. I am concerned that the patient is continually seeking inpatient hospitalized treatment to take advantage of the lack of continuity. She is having hospitalists prescribe her controlled substances and circumventing her PCP. In review of her [facility] report, she has had several controlled substances this year prescribed by providers other than her PCP. In light of this, I will not be prescribing any controlled substances to this patient and she sees her PCP 5 days after discharge. I will write for her other medications. Her PCP had just written for her trazodone, zoloft, lipitor and metformin, so I refilled the others. ACS and acute CVA processes have been ruled out. She was discharged home in stable condition with close outpatient followup recommended. An email was sent to her PCP for improved continuity of care. ITS Impressions Chest X-Ray 02/05/17 16:52 IMPRESSION: No acute process. D/ / Max Nagel MD / Max Nagel MD Interpreting Provider: Max Nagel MD Regadenosen nuclear stress impression: Perfusion imaging was negative for ischemia or infarct. Pharmacologic ECG was negative for ischemia at the level of heart rate achieved. Patient described chest pain before the procedure was persisted throughout the testing. Gated ejection fraction equals 56%. Brain MRI 02/06/17 15:57 IMPRESSION: No evidence of acute intracranial abnormality. Mild bilateral mastoiditis. D/ / 02/06/2017 17:22:46 Abdullahi Calderon MD / ariana Interpreting Provider: Abdullahi Calderon MD - Time Spent with Patient Total time spent providing and/or coordinating discharge services: Greater than 30 minutes - Constitutional Vitals: Temp Pulse Resp BP Pulse Ox 97.5 F L 69 16 156/84 95 02/08/17 07:21 02/08/17 07:21 02/08/17 07:21 02/08/17 07:21 02/08/17 07:21 General appearance: Present: A&O X 3, pleasant, no acute distress, obese, answers questions appropriately - Head Head exam: Present: atraumatic, normocephalic - Eye Eye exam: Present: PERRL, conjuntiva pink, sclera anicteric Pupils: Present: PERRL - Neck Neck exam general surgery: Present: supple, trachea midline. Absent: lymphadenopathy - Respiratory Respiratory exam: Present: CTAB. Absent: accessory muscle use, rales, respiratory distress, rhonchi, wheezes - Cardiovascular Cardiovascular exam: Present: RRR, +S1, +S2. Absent: diastolic murmur, gallop, rubs, systolic murmur - GI/Abdominal GI/Abdominal exam: Present: normal bowel sounds, soft, no peritoneal signs. Absent: distended, tenderness - Extremities Exam Extremities exam: Present: warm, radial pulses palpable and symetrical. Absent : calf tenderness, cyanotic, pedal edema - Neurological Exam Neurological exam: Present: alert, CN II-XII intact, normal gait, oriented X3, no focal deficits, strengths equal and symetr throughout. Absent: pronater drift, facial droop, speech deficit - Skin Skin exam: Present: dry, intact, normal color, warm
--- NOTE | 2017-02-08 16:16 | Electrocardiograph Report ---
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
[2017-02-08] MEDS ORDERED: *HR* Warfarin 7.5 MG TABLET PO ONE (18:00)
== END 2017-02-08 13:58 | disposition home or self-care (01) ==
LOC: 3BNU 16:36 → EMEROO 16:36 → 3BNU 18:26
PROVIDERS: ADMIT Internal Medicine; ATTEND Nurse Practitioner Family

== ENCOUNTER 2017-03-03 19:40 | Observation (INO) ==
[2017-03-03 20:09] LABS: Basophils % 0.4 %; Eosinophils # 0.1 K/mcL (0.0-0.6); Eosinophils % 1.3 %; Hemoglobin 13.1 g/dL (11.5-15.4); Immature Granulocytes % 0.4 % (0-4); Lymphocytes # 1.8 K/mcL (0.6-4.6); Lymphocytes % 21.5 %; Mean Corpuscular Hemoglobin 25.1 pg (28.0-33.3); Mean Corpuscular Volume 78.5 fL (83.0-100.0); Mean Platelet Volume 10.2 fL (9.4-12.4); Monocytes # 0.3 K/mcL (0.0-1.3); Monocytes % 3.6 %; Platelet Count 240 K/mcL (140-400); Red Blood Count 5.22 M/mcL (3.82-4.97); Segmented Neutrophils % 72.8 %
[2017-03-03 20:19] LABS: BUN/Creatinine Ratio 19 (6-26); Blood Urea Nitrogen 13 mg/dL (7-20); Calcium 9.4 mg/dL (8.6-10.8); Carbon Dioxide 20 mEq/L (19-29); Chloride 105 mEq/L (98-109); Glucose 261 mg/dL (70-99); Osmolality,Calculated 295 (280-300); Potassium 3.5 mEq/L (3.5-4.5); Sodium 138 mEq/L (136-145); eGFR For African Americans > 60 (> 60); eGFR For Non-African Americans > 60 (> 60)
[2017-03-03] MEDS ORDERED: 0.9 % Sodium Chloride 1,000 ML IVC ONE (20:30)
[2017-03-03] MEDS ORDERED: Aspirin 81 MG TAB.CHEW PO STA (20:30)
--- NOTE | 2017-03-03 20:30 | Emergency Department Note ---
Disposition Clinical Impression: Unstable angina, SOB (shortness of breath) Chest pain Qualifiers: Chest pain type: precordial pain Qualified Code(s): R07.2 - Precordial pain Disposition: Admitted As Inpatient Condition: Good Time of Disposition: 22:20 Chest Pain HPI - General Chief Complaint: ED Chest Pain Stated Complaint: CP Time Seen by Provider: 03/03/17 20:08 Source: patient, EMS Limitations: no limitations Vital Signs Reviewed: Yes Nursing Notes Reviewed: Yes - History of Present Illness HPI Narrative: Patient is a 51-year-old female with significant past medical history for SD, PE , DVT, diabetes, hypertension, hyperlipidemia and stroke. Patient is not currently on anticoagulants. Patient presents with severe mid substernal chest pain radiation to her back times past 6 hours that occurred at rest. Patient states this is her anginal equivalent with exception of jaw and neck pain. Patient states one day of go she had sudden onset of jaw and neck pain followed by severe diaphoresis which continued intermittently through to today. Patient admits to shortness of breath as well. Patient follows with cardiology [place] at [facility]. Patient denies any recent tobacco use, illicit drug use, alcohol use. Patient's family history: All unknown relatives from cardiac events at young ages Severity scale (1-10): 8 - Related Data Home Medications Medication Instructions Recorded Confirmed Aspirin [Adult Low Dose Aspirin EC] 81 mg PO DAILY 10/26/15 03/04/17 Etonogestrel [Nexplanon] 68 mg SQ AD 10/26/15 03/04/17 Sertraline [Zoloft] 150 mg PO DAILY 10/26/15 03/04/17 Trazodone HCl 50 - 100 mg PO HS PRN 10/26/15 03/04/17 metFORMIN [Glucophage] 1,000 mg PO BIDWM 10/26/15 03/04/17 Previous Rx's Medication Instructions Recorded Atorvastatin Calcium [Lipitor] 20 mg PO DAILY #0 04/17/16 Ibuprofen [Motrin] 600 mg PO Q6-8H PRN #30 tab 05/21/16 Insulin Glargine,Hum.rec.anlog 50 unit SQ BID 30 Days 08/19/16 [Lantus Solostar] Cephalexin [Keflex] 500 mg PO TID #30 capsule 11/22/16 Albuterol Sulfate [Proair 2 puff IH Q4H PRN #1 02/08/17 Respiclick] Aspirin Enteric Coated [Aspirin EC] 81 mg PO DAILY #30 02/08/17 Dicyclomine [Bentyl] 10 mg PO QID PRN #20 capsule 02/08/17 Lisinopril [Zestril] 5 mg PO DAILY #30 02/08/17 Metoprolol [Lopressor] 25 mg PO BID 30 Days 02/08/17 Omeprazole [PriLOSEC] 20 mg PO 0630 #30 02/08/17 Allergies Allergy/AdvReac Type Severity Reaction Status Date / Time No Known Allergies Allergy Verified 03/03/17 19:44 All systems ED: reviewed and negative except as stated. Review of Systems: As Per HPI Constitutional: Denies: fever, chills Eyes: Denies: vision change ENT ED: Denies: congestion Cardiovascular: Reports: chest pain, palpitations Respiratory: Reports: dyspnea Gastrointestinal: Denies: abdominal pain, nausea, vomiting, diarrhea Genitourinary: Reports: other (Patient reports one bout of urinary incontinence) Chest Pain PMH - Past Medical History Medical history: Reports: atrial fibrillation, COPD, CVA, diabetes, hyperlipidemia, hypertension, myocardial infarction Surgical history: Reports: , cholecystectomy Psychiatric history: Reports: anxiety, depression VP PATIENT history: Reports: no VP PATIENT history - Social History Smoking Status: Never smoker Alcohol use: Reports: none Drug use: Reports: none Physical Exam - General Limitations: no limitations General appearance: alert - Head Head exam: atraumatic, normocephalic, normal inspection - Eye Eye exam: Present: normal appearance, PERRL, EOMI - Neck Neck exam: Present: normal inspection, full ROM, trachea midline - Chest Chest inspection: Present: normal inspection, symmetric chest wall rise. Absent : tenderness - Respiratory Respiratory exam: Present: normal lung sounds bilaterally - Cardiovascular Cardiovascular exam: Present: regular rate, normal rhythm, normal heart sounds - Abdominal Exam Abdominal exam: Present: soft, Non-Tender. Absent: tenderness, distention, guarding, rebound, rigidity Course - Reevaluation(s) Reevaluation #1: Patient was seen and examined. ACS workup initiated with CBC, BMP, chest x-ray , troponin. Nitroglycerin trial ordered. Aspirin ordered. Time: 19:44 Reevaluation #2: Patient has no resolution of pain with nitroglycerin. Patient is received her aspirin. Ordered 1 mg of Dilaudid. Time: 21:35 Reevaluation #3: Patient's pain reduced from 10 out of 10-7 out of 10 with 1 mg of Dilaudid. We will re-dose Time: 21:50 - Consultations Consultation #1: Dr. Marcano the hospitalist has accepted for admission Time: 22:19 Vital Signs Temperature 98.7 F 03/03/17 19:41 Pulse Rate 91 03/03/17 19:41 Respiratory Rate 16 03/03/17 19:41 Blood Pressure 135/85 03/03/17 19:41 O2 Sat by Pulse Oximetry 98 03/03/17 19:41 Temperature 98.3 F 03/04/17 01:03 Pulse Rate 104 03/04/17 01:03 Respiratory Rate 16 03/04/17 01:03 Blood Pressure 127/78 03/04/17 01:03 O2 Sat by Pulse Oximetry 97 03/04/17 01:03 Oxygen Delivery Oxygen Delivery Room Air Chest Pain - MDM Narrative Medical decision making narrative: Patient's concerning for ACS/SD, PE, aortic dissection. Patient's symptoms closely related to prior SD. Patient is currently high risk with a heart score of 6 at such a young age and current plan is for admittance. Patient's negative troponin, and patient's EKG shows no signs of ischemia. Patient's pain has been difficult to control and has received nitroglycerin trial which failed to reduce patient's pain, and 2 mg of Dilaudid as well. Patient still has pain but states her pain has been difficult to control in the past as well. Patient is received IV normal saline. Patient's vitals are stable. Patient accepts decision for admitting to the hospital for further workup and trending of troponins and cardiology assessment. Patient is accepted for admission by Dr. Marcano the hospitalist. - Lab Data Lab results reviewed: Yes I reviewed the patient's lab results. Lab results narrative: Short CBC 03/03/17 Range/Units 20:00 WBC 8.3 (4.3-11.1) K/mcL Hgb 13.1 (11.5-15.4) g/dL Hct 41.0 (35.3-44.9) % Plt Count 240 (140-400) K/mcL Neutrophils # 6.0 (1.6-8.9) K/mcL BMP 03/03/17 Range/Units 20:00 Sodium 138 (136-145) mEq/L Potassium 3.5 (3.5-4.5) mEq/L Chloride 105 (98-109) mEq/L Carbon Dioxide 20 (19-29) mEq/L BUN 13 (7-20) mg/dL Creatinine 0.70 (0.57-1.11) mg/dL Glucose 261 H (70-99) mg/dL Calcium 9.4 (8.6-10.8) mg/dL Cardiac Enzymes 03/03/17 Range/Units 20:00 Troponin I 0.01 (0-0.03) ng/mL Result diagrams: 03/03/17 20:00 03/03/17 20:00 Lab Results 03/03/17 03/03/17 03/03/17 Range/Units 20:00 20:00 20:00 WBC 8.3 (4.3-11.1) K/mcL RBC 5.22 H (3.82-4.97) M/mcL Hgb 13.1 (11.5-15.4) g/dL Hct 41.0 (35.3-44.9) % MCV 78.5 L (83.0-100.0) fL MCH 25.1 L (28.0-33.3) pg MCHC 32.0 (31.6-35.5) g/dL RDW 15.0 H (11.5-14.5) % Plt Count 240 (140-400) K/mcL MPV 10.2 (9.4-12.4) fL Immature Gran % 0.4 (0-4) % Seg Neutrophils % 72.8 % Lymphocytes % 21.5 % Monocytes % 3.6 % Eosinophils % 1.3 % Basophils % 0.4 % Neutrophils # 6.0 (1.6-8.9) K/mcL Lymphocytes # 1.8 (0.6-4.6) K/mcL Monocytes # 0.3 (0.0-1.3) K/mcL Eosinophils # 0.1 (0.0-0.6) K/mcL Basophils # 0.0 (0.0-0.2) K/mcL Sodium 138 (136-145) mEq/L Potassium 3.5 (3.5-4.5) mEq/L Chloride 105 (98-109) mEq/L Carbon Dioxide 20 (19-29) mEq/L BUN 13 (7-20) mg/dL Creatinine 0.70 (0.57-1.11) mg/dL Est GFR ( Amer) > 60 (> 60) Est GFR (Non-Af Amer) > 60 (> 60) BUN/Creatinine Ratio 19 (6-26) Glucose 261 H (70-99) mg/dL Calculated Osmolality 295 (280-300) Calcium 9.4 (8.6-10.8) mg/dL Troponin I 0.01 (0-0.03) ng/mL - Radiology Data Radiology results reviewed: Yes I reviewed the patient's radiology results. Chest X-Ray 03/03/17 19:45 IMPRESSION: No acute process. D/ / Manjula Mccormack MD / Manjula Mccormack MD Interpreting Provider: Manjula Mccormack MD - EKG Data EKG attestation: Yes I reviewed and interpreted this EKG. EKG results narrative: EKG taken today shows no ST elevations or depressions and a leads. EKG shows normal: sinus rhythm Rhythm: NSR Heart Score - Score History: Highly Suspicious EKG: Non Specific repolarisation Disturbance Age: 45-65 Risk Factors: Equal/Greater than 3 risk factor or history of atherosclerotic disease Troponin: Less than normal limit HEART Score Total: 6
--- NOTE | 2017-03-03 20:35 | Emergency Department Note ---
START Narrative - START START: I examined this patient and my medical decision-making was reviewed with the Resident Physician. I agree with the documented findings, disposition and treatment plan as described except to the extent set forth below. Patient was independently seen and evaluated by myself. Patient was seen with the emergency medicine resident Timbo Simental. Please see copy of her notes for details of this ED encounter management and disposition. Briefly: A 51-year-old female history of [place] presents with chest pain which is different from her usual consistent with unstable angina. History of A. fib but is in sinus rhythm without acute ischemic changes. Troponin negative. Patient will get aspirin and nitroglycerin trial admission for unstable angina. Provided 45 minutes of critical care service for this patient. Admission pending
[2017-03-03] MEDS: Nitroglycerin 0.4 MG TAB.SUBL SL PRN ×2 (21:25→21:34)
[2017-03-03] MEDS ORDERED: *HR* HYDROmorphone (PF) 1 MG/ML SYRINGE IVP ONE ×2 (21:34→22:58)
[2017-03-03] MEDS ORDERED: Acetaminophen 325 MG TABLET PO PRN (23:44)
[2017-03-03] MEDS ORDERED: *HR* HYDROcodone/Acet 5/325 mg TABLET PO PRN (23:44)
[2017-03-03] MEDS ORDERED: Ondansetron 4 MG/2 ML VIAL IVP PRN (23:44)
[2017-03-03] MEDS ORDERED: Naloxone 0.4 MG/ML INJ IVP PRN (23:44)
[2017-03-03] MEDS ORDERED: 0.9 % Sodium Chloride 1,000 ML IVC SCH (23:45)
--- NOTE | 2017-03-03 23:51 | Internal Med History&Physical ---
Date of Encounter: 03/04/17 Time of Encounter: 23:48 Assessment and Plan (1) Paroxysmal atrial fibrillation Current visit: Yes Status: Acute She has received treatment with Xarelto in the past but says that it caused excessive bleeding and she was recently prescribed warfarin but could not afford that medication while she does not have insurance. Given history of paroxysmal atrial fibrillation, prior stroke I will start warfarin and bridge with Lovenox. (2) Essential hypertension Current visit: Yes Status: Acute Continue metoprolol and lisinopril. (3) Hyperlipemia Current visit: No Status: Chronic Continue with statin. Qualifiers: Hyperlipidemia type: unspecified Qualified Code(s): E78.5 - Hyperlipidemia , unspecified (4) Diabetes mellitus, type II, insulin dependent Current visit: No Status: Chronic Start insulin sliding scale. Diabetic diet. (5) Chest pain Current visit: No Status: Acute Patient had a recent stress test which was negative on 02/06/2017, last month. I reviewed this result. She had an echocardiogram which showed normal ejection fraction, normal LV function. We will place her on telemetry. Trend troponin. No need to repeat stress test or echocardiogram. If ACS is ruled out consider discharge home with close follow-up with cardiology. Qualifiers: Chest pain type: unspecified Qualified Code(s): R07.9 - Chest pain, unspecified Internal Medicine - H&P: HPI Chief complaint: Chest pain Admitted From: Emergency Dept Plans for Post Hospital Care: Home History of present illness: Ms. Jacome is a 51 year old female with past medical history significant for hypertension, type 2 diabetes, morbid obesity and hyperlipidemia who presented to the hospital for evaluation of chest pain. Earlier today she started having chest palpitations and then during the afternoon while at rest she started experiencing is 9/10 in intensity sharp midsternal chest pain radiating to the back associated with severe diaphoresis and mild nausea. The pain lasted for about 30 minutes and had no aggravating or alleviating factors. She presented to the emergency department were initial workup was negative Past Med Surg Social Fam HX - Past Medical History Medical history: atrial fibrillation, COPD, CVA, diabetes, hyperlipidemia, hypertension, myocardial infarction Psychiatric history: anxiety, depression - Past Surgical History Surgical History: , cholecystectomy - Social History Smoking Status: Never smoker Smokeless Tobacco Status: No Alcohol use: none Drug use: none - Family History Mother Living Status: Hx Family Cardiac Disorders: Yes Hx Family Respiratory Disorders: Yes (copd) Hx Family Cancer: Yes (lung cancer) Hx Family Endocrine Disorder: Yes (DM type II) Father Adopted: No Family Member Ethnicity: Non- Living Status: Hx Family Cardiac Disorders: Yes Hx Family Cancer: Yes (stomach cancer) Hx Family Endocrine Disorder: Yes (DM) Internal Medicine - H&P: Meds Aspirin [Adult Low Dose Aspirin EC] 81 mg PO DAILY 10/26/15 [History] Etonogestrel [Nexplanon] 68 mg SQ AD 10/26/15 [History] Sertraline [Zoloft] 150 mg PO DAILY 10/26/15 [History] Trazodone HCl 50 - 100 mg PO HS PRN 10/26/15 [History] metFORMIN [Glucophage] 1,000 mg PO BIDWM 10/26/15 [History] Atorvastatin Calcium [Lipitor] 20 mg PO DAILY #0 04/17/16 [Rx] Ibuprofen [Motrin] 600 mg PO Q6-8H PRN #30 tab 05/21/16 [Rx] Insulin Glargine,Hum.rec.anlog [Lantus Solostar] 50 unit SQ BID 30 Days [Rx] Cephalexin [Keflex] 500 mg PO TID #30 capsule 11/22/16 [Rx] Albuterol Sulfate [Proair Respiclick] 2 puff IH Q4H PRN #1 02/08/17 [Rx] Aspirin Enteric Coated [Aspirin EC] 81 mg PO DAILY #30 02/08/17 [Rx] Dicyclomine [Bentyl] 10 mg PO QID PRN #20 capsule 02/08/17 [Rx] HydrOXYzine Pamoate [Vistaril] 50 mg PO TID #15 capsule 02/08/17 [Rx] Lisinopril [Zestril] 5 mg PO DAILY #30 02/08/17 [Rx] Metoprolol [Lopressor] 25 mg PO BID 30 Days 02/08/17 [Rx] Omeprazole [PriLOSEC] 20 mg PO 0630 #30 02/08/17 [Rx] 3 Allergy/AdvReac Type Severity Reaction Status Date / Time No Known Allergies Allergy Verified 03/03/17 19:44 All Systems PM: A 10-system review of systems was performed and is negative for pertinent findings except as documented above in the HPI. - Constitutional Vitals: Temp Pulse Resp BP Pulse Ox 98.7 F 81 18 0/0 96 03/03/17 19:41 03/03/17 23:16 03/03/17 23:21 03/03/17 23:21 03/03/17 23:16 General appearance: Present: A&O X 3, no acute distress - Eye Eye exam: Present: PERRL, conjuntiva pink, sclera anicteric Pupils: Present: PERRL - Respiratory Respiratory exam: Present: CTAB. Absent: accessory muscle use, rales, rhonchi, wheezes - Cardiovascular Cardiovascular exam: Present: RRR, +S1, +S2. Absent: diastolic murmur, gallop, rubs, systolic murmur - GI/Abdominal GI/Abdominal exam: Present: normal bowel sounds, soft, no peritoneal signs. Absent: distended, tenderness - Extremities Exam Extremities exam: Present: warm, radial pulses palpable and symmetrical. Absent : calf tenderness, cyanotic, pedal edema - Skin Skin exam: Present: dry, intact Internal Med - H&P Results - Labs CBC & Chem 7: 03/03/17 20:00 03/03/17 20:00 - EKG Data -: EKG Interpreted by Myself EKG shows normal: sinus rhythm, ST-T waves
[2017-03-04] MEDS ORDERED: D5% in Water 1,000 ML IVC PRN (00:47)
[2017-03-04] MEDS ORDERED: Dextrose Gel 15 GM PO PRN ×2 (00:47)
[2017-03-04] MEDS ORDERED: *HR* Dextrose 50 % in Water (Syg) 50 ML SYRINGE IVP PRN (00:47)
[2017-03-04] MEDS: *HR* HYDROmorphone (PF) 1 MG/ML SYRINGE IVP PRN ×2 (01:25→06:16)
[2017-03-04 01:54] LABS: Basophils % 0.4 %; Eosinophils # 0.2 K/mcL (0.0-0.6); Eosinophils % 2.1 %; Hematocrit 38.3 % (35.3-44.9); Hemoglobin 12.4 g/dL (11.5-15.4); Immature Granulocytes % 0.3 % (0-4); Lymphocytes # 2.2 K/mcL (0.6-4.6); Mean Corpuscular HGB Conc 32.4 g/dL (31.6-35.5); Mean Corpuscular Hemoglobin 25.6 pg (28.0-33.3); Mean Platelet Volume 10.4 fL (9.4-12.4); Monocytes # 0.4 K/mcL (0.0-1.3); Monocytes % 5.2 %; Neutrophils # 5.1 K/mcL (1.6-8.9); Platelet Count 228 K/mcL (140-400); Red Blood Count 4.85 M/mcL (3.82-4.97)
[2017-03-04 02:02] LABS: Prothrombin Time 10.6 Seconds (9.4-12.1)
[2017-03-04 02:08] LABS: BUN/Creatinine Ratio 21 (6-26); Blood Urea Nitrogen 15 mg/dL (7-20); Calcium 9.1 mg/dL (8.6-10.8); Carbon Dioxide 21 mEq/L (19-29); Chloride 107 mEq/L (98-109); Chol/HDL Ratio 6.6 (0-4.9); Cholesterol 251 mg/dL (< 200); Glucose 214 mg/dL (70-99); HDL Cholesterol 38 mg/dL (40-59); LDL Cholesterol,Calculated 152 mg/dL (0-99); Magnesium 1.9 mg/dL (1.6-2.6); Osmolality,Calculated 293 (280-300); Potassium 3.4 mEq/L (3.5-4.5); Sodium 138 mEq/L (136-145); Triglycerides 304 mg/dL (< 150); eGFR For African Americans > 60 (> 60); eGFR For Non-African Americans > 60 (> 60)
[2017-03-04] MEDS ORDERED: *HR* Warfarin 7.5 MG TABLET PO ONE (02:30)
[2017-03-04] MEDS ORDERED: *HR* Enoxaparin 100 MG/ML SYRINGE SQ SCH (06:00)
[2017-03-04] MEDS ORDERED: Ibuprofen 800 MG TABLET PO PRN (08:42)
[2017-03-04] MEDS ORDERED: *HR* HYDROcodone/Acet 5/325 mg TABLET PO PRN (08:47)
[2017-03-04] MEDS: Insulin LISPRO 300 UNITS/3 ML VIAL SQ SCH ×2 (08:51→11:35)
[2017-03-04] MEDS ORDERED: Insulin DETEMIR 100 UNIT/ML X5UNITS SQ SCH (09:00)
[2017-03-04 14:55] VITALS: BP 116/77
[2017-03-04] MEDS ORDERED: Warfarin perPT PO PRN (18:00)
[2017-03-04] MEDS ORDERED: *HR* Warfarin 5 MG TABLET PO ONE (18:00)
--- NOTE | 2017-03-04 18:11 | Electrocardiograph Report ---
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
--- NOTE | 2017-03-04 19:45 | Internal Med Progress Note ---
Date of Encounter: 03/04/17 Time of Encounter: 08:30 - Assessment and plan (1) Chest pain Status: Acute Assessment and plan: Pt reported chest heaviness that is reproducible with palpation, movement, and deep inspiration. No signs of injury and pt denies SOB. Lungs clear. EKG NSR with rate 89, HI int 142, QRS 98 and Qtc 407. CXR negative. Pt had stress in January, that was negative for ischemia or infarct and gated EF 56%. Echo in with nor systolic function, normal RV sinze and function. Qualifiers: Chest pain type: other chest pain Qualified Code(s): R07.89 - Other chest pain; R07.8 - Other chest pain (2) DVT prophylaxis Status: Acute (3) Essential hypertension Status: Acute (4) HTN (hypertension) Status: Chronic Qualifiers: Hypertension type: essential hypertension Qualified Code(s): I10 - Essential (primary) hypertension (5) Hyperlipemia Status: Chronic Qualifiers: Hyperlipidemia type: unspecified Qualified Code(s): E78.5 - Hyperlipidemia , unspecified (6) Obesity (BMI 30-39.9) Status: Chronic (7) Paroxysmal atrial fibrillation Status: Chronic Assessment and plan: Pt was taking Xarelto for pa-fib and staes that it caused beleding and was placed on Warfarin, but could not afford it. Pt was NSR and apical and radial were regular. Denies chest pain. Pt left AMA and I was not able to assess her need for anticoagulation or assist with payment. - Subjective Interval history: She was seen and assessed at 8:30 AM. She was sitting up in bed eating breakfast. She reports chest pressure since yesterday and states she did not sleep. She describes it as someone sitting on her chest. It is 9/10 with intermittent sharp pain with pressure in her neck. She reports shortness of breath, nausea, dizziness, diaphoresis. The pain is worse with movement, palpation, deep inspiration. She reports that she is not getting relief of her pain from Dilaudid. I did offer her Motrin and she seemed agreeable. Patient had an echocardiogram that had been canceled. I did feel that this was musculoskeletal chest pain and not cardiac in nature. Before I could review all labs and results, pt states that she is going to sign out AMA. She states that her ride is here and she needs to go home. - Constitutional Vitals: Temp Pulse Resp BP Pulse Ox 98.2 F 66 14 116/77 97 03/04/17 14:51 03/04/17 14:51 03/04/17 14:51 03/04/17 14:51 03/04/17 14:51 General appearance: Present: A&O X 3, no acute distress - Head Head exam: Present: atraumatic, normocephalic - Eye Eye exam: Present: PERRL, conjuntiva pink, sclera anicteric Pupils: Present: PERRL - Neck Neck exam general surgery: Present: supple, trachea midline. Absent: lymphadenopathy - Respiratory Respiratory exam: Present: CTAB. Absent: accessory muscle use, rales, rhonchi, wheezes - Cardiovascular Cardiovascular exam: Present: RRR, +S1, +S2. Absent: diastolic murmur, gallop, rubs, systolic murmur Additional comments: pain reproducible with palpation, movement, and deep inspiration - GI/Abdominal GI/Abdominal exam: Present: normal bowel sounds, soft, no peritoneal signs. Absent: distended, tenderness - Extremities Exam Extremities exam: Present: warm, radial pulses palpable and symmetrical. Absent : calf tenderness, cyanotic, pedal edema - Neurological Exam Neurological exam: Present: CN II-XII intact, oriented X3, no focal deficits. Absent: pronater drift, facial droop, speech deficit - Skin Skin exam: Present: dry, intact Internal Medicine: Result - Labs CBC & Chem 7: 03/04/17 01:32 03/04/17 01:32 Labs: Short CBC 03/04/17 Range/Units 01:32 WBC 7.9 (4.3-11.1) K/mcL Hgb 12.4 (11.5-15.4) g/dL Hct 38.3 (35.3-44.9) % Plt Count 228 (140-400) K/mcL Neutrophils # 5.1 (1.6-8.9) K/mcL BMP 03/04/17 01:32 Sodium 138 Potassium 3.4 L Chloride 107 Carbon Dioxide 21 BUN 15 Creatinine 0.70 Glucose 214 H Calcium 9.1 Cardiac Enzymes 03/04/17 03/04/17 Range/Units 01:32 08:10 Troponin I 0.00 0.00 (0-0.03) ng/mL - ABG Interpretation ABG results: PT/INR, D-dimer PT 10.6 Seconds (9.4-12.1) 03/04/17 01:32 Consult Discharge Plan - Plan Instructions: Angina (DC), Angina (GEN)
== END 2017-03-04 15:45 | disposition left against medical advice (07) ==
LOC: 3BNU 19:40 → EMEROO 19:40 → 3BNU 23:41
PROVIDERS: ADMIT Pediatrics; ATTEND Registered Nurse

== ENCOUNTER 2017-05-11 17:53 | Observation (INO) ==
[2017-05-11 18:40] LABS: Basophils # 0.1 K/mcL (0.0-0.2); Basophils % 0.6 %; Eosinophils # 0.2 K/mcL (0.0-0.6); Eosinophils % 2.3 %; Hematocrit 42.8 % (35.3-44.9); Hemoglobin 13.8 g/dL (11.5-15.4); Immature Granulocytes % 0.4 % (0-4); Lymphocytes # 1.5 K/mcL (0.6-4.6); Lymphocytes % 14.5 %; Mean Corpuscular HGB Conc 32.2 g/dL (31.6-35.5); Mean Corpuscular Hemoglobin 25.4 pg (28.0-33.3); Mean Corpuscular Volume 78.7 fL (83.0-100.0); Mean Platelet Volume 10.2 fL (9.4-12.4); Monocytes # 0.5 K/mcL (0.0-1.3); Monocytes % 4.5 %; Neutrophils # 8.2 K/mcL (1.6-8.9); Platelet Count 244 K/mcL (140-400); Red Blood Count 5.44 M/mcL (3.82-4.97); Red Cell Distribution Width 14.4 % (11.5-14.5); Segmented Neutrophils % 77.7 %
[2017-05-11 18:44] LABS: Prothrombin Time 10.9 Seconds (9.4-12.1)
[2017-05-11 18:47] LABS: Activated Partial Thrombo Time 31.5 Seconds (26.0-36.0)
[2017-05-11 18:56] LABS: Albumin 4.4 g/dL (3.5-5.0); Albumin/Globulin Ratio 1.3 (1.1-2.2); BUN/Creatinine Ratio 15 (6-26); Bilirubin,Direct 0.3 mg/dL (0.0-0.5); Bilirubin,Indirect 0.5 mg/dL (0.0-1.2); Bilirubin,Total 0.8 mg/dL (0.2-1.2); Blood Urea Nitrogen 13 mg/dL (7-20); Calcium 9.7 mg/dL (8.6-10.8); Carbon Dioxide 23 mEq/L (19-29); Chloride 103 mEq/L (98-109); Globulin 3.5 g/dL (2.4-3.5); Glucose 331 mg/dL (70-99); Osmolality,Calculated 301 (280-300); Potassium 3.3 mEq/L (3.5-4.5); Sodium 139 mEq/L (136-145); Total Protein 7.9 g/dL (6.0-8.3); eGFR For African Americans > 60 (> 60); eGFR For Non-African Americans > 60 (> 60)
[2017-05-11 18:57] LABS: Acetaminophen < 1.0 mcg/mL (10-30); Ethanol < 10 mg/dL (0-10); Salicylate < 5.0 mg/dL (15-30)
[2017-05-11 19:11] LABS: Bilirubin,Urine Negative (Negative); Blood,Urine Negative (Negative); Clarity,Urine Clear (Clear); Color,Urine Yellow (Yellow); Glucose,Urine (UA) >=1000 mg/dL (Normal); Ketones,Urine Negative (Negative); Leukocyte Esterase,Urine Negative (Negative); Nitrite,Urine Negative (Negative); Protein,Urine Trace mg/dL (Neg-Trace); Specific Gravity,Urine > 1.030 (1.010-1.025); Urobilinogen,Urine Normal (Normal)
[2017-05-11 19:13] LABS: Bacteria,Urine Few per hpf (None-Few); Hyaline Casts,Urine None Seen per lpf (None-Few); RBC,Urine 0-3 per hpf (0-3); Squamous Epithelial Cell,Urine Many per lpf (None-Few)
[2017-05-11 19:15] LABS: Amphetamine Screen,Urine Negative ng/mL (Cutoff=1000); Barbiturate Screen,Urine Negative ng/mL (Cutoff=200); Benzodiazepines Screen,Urine Negative ng/mL (Cutoff=200); Cannabinoid Screen,Urine Negative ng/mL (Cutoff = 50); Cocaine Screen,Urine Negative ng/mL (Cutoff= 300); Opiate Screen,Urine Negative ng/mL (Cutoff=300); Phencyclidine Screen,Urine Negative ng/mL (Cutoff=25)
[2017-05-11 19:17] LABS: Thyroid Stimulating Hormone 3.059 mcIU/mL (0.350-4.840)
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
[2017-05-11] MEDS ORDERED: *HR* LORazepam 1 MG TABLET PO PRN (21:31)
[2017-05-11] MEDS ORDERED: Haloperidol Lactate 5 MG/ML VIAL IM PRN (21:31)
[2017-05-11] MEDS ORDERED: *HR* LORazepam 2 MG/ML VIAL IM PRN (21:31)
[2017-05-11] MEDS ORDERED: MOM Conc 10 ML UD.LIQ PO PRN (21:31)
[2017-05-11] MEDS ORDERED: Mag Hydrox/Al Hydrox/Simeth 30 ML UDC PO PRN (21:31)
[2017-05-11] MEDS ORDERED: hydrOXYzine pamoate 25 MG CAPSULE PO PRN (21:31)
[2017-05-11] MEDS ORDERED: Acetaminophen 325 MG TABLET PO PRN (21:31)
[2017-05-11] MEDS: *HR* Metformin 500 MG TABLET PO SCH (22:28)
[2017-05-11] MEDS: traZODone 50 MG TABLET PO PRN (22:28)
[2017-05-12] MEDS: *HR* Metformin 500 MG TABLET PO SCH ×2 (08:56→16:19)
[2017-05-12] MEDS: Aspirin Enteric Coated 81 MG Tablet PO SCH (08:56)
--- NOTE | 2017-05-12 10:19 | Discharge Summary ---
Date of Encounter: 05/13/17 Time of Encounter: 10:00 History of Present Illness Chief complaint: Suicidal ideation Admitted From: Emergency Dept History of Present Illness: Ms. Jacome is a 51 year old female admitted from the emergency room department for evaluation of suicidal ideation. Patient had no previous psychiatric treatment history, records indicated that she was resistant arrested by police for stealing money and medication from a home health client. Patient told me that she has been home also. For several years and has been dealing with dependence on opiates and alcohol dependence but never went into treatment or counseling. Patient denies any previous history of suicide attempts or self mutilating behavior. She was guarded and emotional and poor historian. UDS was negative Past Med Surg Social Fam HX - Past Medical History Medical history: atrial fibrillation, COPD, CVA, diabetes, hyperlipidemia, hypertension, myocardial infarction, TIA - Past Psychiatric History Psychiatric history: Reports: no psych history - Past Surgical History Surgical History: , cholecystectomy - Social History Smoking Status: Never smoker Smokeless Tobacco Status: No Alcohol use: heavy, recent Drug use: none - Family History Mother Living Status: Hx Family Cardiac Disorders: Yes Hx Family Respiratory Disorders: Yes (copd) Hx Family Cancer: Yes (lung cancer) Hx Family Endocrine Disorder: Yes (DM type II) Father Adopted: No Family Member Ethnicity: Non- Living Status: Hx Family Cardiac Disorders: Yes Hx Family Respiratory Disorders: Yes Hx Family Cancer: Yes (LUNG) Hx Family GI Disorders: No Hx Family Endocrine Disorder: Yes (DM) Hx Family Neuromuscular Disorders: No Hx Family Neurologic Disorders: No Hx Family HEENT Disorders: No Hx Family Autoimmune Disorders: No Medications - Discharge Medications Aspirin [Adult Low Dose Aspirin EC] 81 mg PO DAILY 10/26/15 [History] Etonogestrel [Nexplanon] 68 mg SQ AD 10/26/15 [History] Sertraline [Zoloft] 100 mg PO DAILY 10/26/15 [History] Trazodone HCl 50 - 100 mg PO HS PRN 10/26/15 [History] metFORMIN [Glucophage] 1,000 mg PO BIDWM 10/26/15 [History] Atorvastatin Calcium [Lipitor] 20 mg PO DAILY #0 04/17/16 [Rx] Insulin Glargine,Hum.rec.anlog [Lantus Solostar] 50 unit SQ BID 30 Days insuln.pen 08/19/16 [Rx] Albuterol Sulfate [Proair Respiclick] 2 puff IH Q4H PRN #1 02/08/17 [Rx] Lisinopril [Zestril] 5 mg PO DAILY #30 02/08/17 [Rx] Metoprolol [Lopressor] 25 mg PO BID 30 Days tablet 02/08/17 [Rx] clonazePAM [Klonopin] 0.5 mg PO HS 03/04/17 [History] Dabigatran Etexilate Mesylate [Pradaxa] 150 mg PO BID 05/12/17 [History] Flecainide [Flecainide] 100 mg PO BID 05/12/17 [History] Ibuprofen [Motrin] 600 mg PO TID PRN 05/12/17 [History] Omeprazole [PriLOSEC] 40 mg PO DAILY 05/12/17 [History] 3 Allergy/AdvReac Type Severity Reaction Status Date / Time No Known Allergies Allergy Verified 03/25/17 16:13 Review of Systems Psychiatric: Reports: suicidal ideation Mental Status Exam - Mental Status Exam Patient orientation: Yes Person, Yes Time, Yes Place Level of alertness: Alert Patient appearance: Appropriate, Well Groomed, Obese Behavior: calm, cooperative, anxious, tearful, guarded Psychomotor activity: Normal Eye contact: Avoids Eye Contact Mood description: Euthymic/stable, Depressed Affect description: congruent with mood, constricted Speech pattern: Normal rate, Normal rhythm, Normal tone, Limited Speech Volume: Normal Thought process: Linear, Goal Oriented Thought Content: Yes Suicidal ideation, No Homicidal ideation, No Overt delusions Perceptual Disturbances: No Auditory hallucinations, No Visual hallucinations Judgment: Limited Insight: Partial Results - Vital Signs Vital signs: Temp Pulse Resp BP Pulse Ox 98.9 F 98 18 145/85 97 05/11/17 21:00 05/11/17 23:00 05/11/17 21:57 05/11/17 23:00 05/11/17 17:56 - Labs Labs: Laboratory Last Values WBC 10.6 K/mcL (4.3-11.1) 05/11/17 18:29 RBC 5.44 M/mcL (3.82-4.97) H 05/11/17 18:29 Hgb 13.8 g/dL (11.5-15.4) 05/11/17 18: Hct 42.8 % (35.3-44.9) 05/11/17 18: MCV 78.7 fL (83.0-100.0) L 05/11/17 18: MCH 25.4 pg (28.0-33.3) L 05/11/17 18: MCHC 32.2 g/dL (31.6-35.5) 05/11/17 18: RDW 14.4 % (11.5-14.5) 05/11/17 18: Plt Count 244 K/mcL (140-400) 05/11/17 18: MPV 10.2 fL (9.4-12.4) 05/11/17 18: Immature Gran % 0.4 % (0-4) 05/11/17 18: Seg Neutrophils % 77.7 % 05/11/17 18: Lymphocytes % 14.5 % 05/11/17 18: Monocytes % 4.5 % 05/11/17 18: Eosinophils % 2.3 % 05/11/17 18: Basophils % 0.6 % 05/11/17 18: Neutrophils # 8.2 K/mcL (1.6-8.9) 05/11/17 18: Lymphocytes # 1.5 K/mcL (0.6-4.6) 05/11/17 18: Monocytes # 0.5 K/mcL (0.0-1.3) 05/11/17 18: Eosinophils # 0.2 K/mcL (0.0-0.6) 05/11/17 18: Basophils # 0.1 K/mcL (0.0-0.2) 05/11/17 18: PT 10.9 Seconds (9.4-12.1) 05/11/17 18: INR 1.0 05/11/17 18: APTT 31.5 Seconds (26.0-36.0) 05/11/17 18:29 Sodium 139 mEq/L (136-145) 05/11/17 18:29 Potassium 3.3 mEq/L (3.5-4.5) L 05/11/17 18: Chloride 103 mEq/L (98-109) 05/11/17 18:29 Carbon Dioxide 23 mEq/L (19-29) 05/11/17 18: BUN 13 mg/dL (7-20) 05/11/17 18: Creatinine 0.89 mg/dL (0.57-1.11) 05/11/17 18:29 Est GFR ( Amer) > 60 (> 60) 05/11/17 18:29 Est GFR (Non-Af Amer) > 60 (> 60) 05/11/17 18:29 BUN/Creatinine Ratio 15 (6-26) 05/11/17 18:29 Glucose 331 mg/dL (70-99) H 05/11/17 18: POC Glucose 299 (58-89) H 05/12/17 07:57 Calculated Osmolality 301 (280-300) H 05/11/17 18: Calcium 9.7 mg/dL (8.6-10.8) 05/11/17 18: Total Bilirubin 0.8 mg/dL (0.2-1.2) 05/11/17 18: Direct Bilirubin 0.3 mg/dL (0.0-0.5) 05/11/17 18: Indirect Bilirubin 0.5 mg/dL (0.0-1.2) 05/11/17 18: AST 36 Units/L (5-34) H 05/11/17 18:29 ALT 38 Units/L (0-55) 05/11/17 18:29 Alkaline Phosphatase 145 Units/L (38-126) H 05/11/17 18:29 Serum Total Protein 7.9 g/dL (6.0-8.3) 05/11/17 18: Albumin 4.4 g/dL (3.5-5.0) 05/11/17 18: Globulin 3.5 g/dL (2.4-3.5) 05/11/17 18: Albumin/Globulin Ratio 1.3 (1.1-2.2) 05/11/17 18: TSH 3.059 mcIU/mL (0.350-4.840) 05/11/17 18:29 Urine Color Yellow (Yellow) 05/11/17 19:01 Urine Clarity Clear (Clear) 05/11/17 19:01 Urine pH 6.0 pH Units (5.0-8.0) 05/11/17 19:01 Ur Specific [place] > 1.030 (1.010-1.025) H 05/11/17 19:01 Urine Protein Trace mg/dL (Neg-Trace) 05/11/17 19:01 Urine Glucose (UA) >=1000 mg/dL (Normal) H 05/11/17 19:01 Urine Ketones Negative mg/dL (Negative) 05/11/17 19:01 Urine Blood Negative (Negative) 05/11/17 19: Urine Nitrite Negative (Negative) 05/11/17 19:01 Urine Bilirubin Negative (Negative) 05/11/17 19:01 Urine Urobilinogen Normal mg/dL (Normal) 05/11/17 19:01 Ur Leukocyte Esterase Negative (Negative) 05/11/17 19:01 Urine Microscopic RBC 0-3 per hpf (0-3) 05/11/17 19:01 Urine Microscopic WBC 3-5 per hpf (0-3) H 05/11/17 19:01 Ur Squamous Epith Cells Many per lpf (None-Few) H 05/11/17 19:01 Urine Bacteria Few per hpf (None-Few) 05/11/17 19:01 Hyaline Casts None Seen per lpf (None-Few) 05/11/17 19:01 Urine Test Negative (Negative) 05/11/17 19:01 Salicylates < 5.0 mg/dL (15-30) L 05/11/17 18:29 Urine Opiates Screen Negative ng/mL (Ryxwuy=912) 05/11/17 19:00 Acetaminophen < 1.0 mcg/mL (10-30) L 05/11/17 18:29 Ur Barbiturates Screen Negative ng/mL (Fnqgdk=037) 05/11/17 19:00 Ur Phencyclidine Scrn Negative ng/mL (Cutoff=25) 05/11/17 19:00 Ur Amphetamines Screen Negative ng/mL (Snkxkv=4693) 05/11/17 19:00 U Benzodiazepines Scrn Negative ng/mL (Xcxhpc=764) 05/11/17 19:00 Urine Cocaine Screen Negative ng/mL (Cutoff= 300) 05/11/17 19:00 U Marijuana (THC) Screen Negative ng/mL (Cutoff = 50) 05/11/17 19:00 Ethyl Alcohol < 10 mg/dL (0-10) 05/11/17 18:29 Diagnosis - Discharge Diagnosis (1) Suicidal ideation Status: Acute (2) Opiate dependence, continuous Status: Acute Assessment and Plan - Patient/Caregiver Discharge Instructions Activity: resume usual activities as tolerated Diet: regular diet - Follow up Plan Follow up with: Joanne Paez MD [Primary Care Provider] - Functional capacity at discharge: independent ambulation Overall status at discharge: Stable Disposition: Home, Self-Care Provider Date of admission: 05/11/17 20:36 Primary care physician: Joanne Paez Consults: 05/11/17 22:24 Consult to Pastoral Services [CONS] Routine Comment: per patient request Discharging clinician: [facility] Course Hospital course: Ms. Jacome is a 51 year old female admitted for suicidal ideation. 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 On the unit patient medication was reviewed and restarted she was noncompliant with her medication including medication for diabetes and others. She was offered to participate in groups and activities, she was educated about medication compliance and resources available for substance abuse. Discharge planning was completed by social work. Prior to discharge she was medically stable nonsuicidal and motivated to continue help and treatment for medical and mental health. - Time Spent with Patient Total time spent providing and/or coordinating discharge services: Greater than 30 minutes Procedures - Procedures Procedures: Medication Management, Crisis Stabilization, Supportive Therapy, Group Therapy, Psychoeducational Therapy Quality - Multiple Antipsychotics Patient discharged on 2 or more antipsychotic medications: No
[2017-05-12] MEDS: *HR* Dabigatran 150 MG CAPSULE PO SCH (20:52)
[2017-05-12] MEDS: traZODone 50 MG TABLET PO PRN ×2 (20:52→22:19)
[2017-05-12] MEDS: Insulin DETEMIR 100 UNIT/ML X5UNITS SQ SCH (20:53)
[2017-05-12] MEDS ORDERED: clonazePAM 0.5 MG TABLET PO PRN (21:00)
[2017-05-13] MEDS: *HR* Metformin 500 MG TABLET PO SCH (08:26)
[2017-05-13] MEDS: *HR* Dabigatran 150 MG CAPSULE PO SCH (08:26)
[2017-05-13] MEDS: Aspirin Enteric Coated 81 MG Tablet PO SCH (08:26)
[2017-05-13] MEDS: Insulin DETEMIR 100 UNIT/ML X5UNITS SQ SCH (09:33)
[2017-05-13 10:38] VITALS: BP 130/79
--- NOTE | 2017-05-13 17:07 | Electrocardiograph Report ---
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
== END 2017-05-13 15:20 | disposition home or self-care (01) ==
LOC: EMEROO 17:53 → 1ANU 17:53
PROVIDERS: ADMIT Psychiatry & Neurology Psychiatry; ATTEND Psychiatry & Neurology Psychiatry

== ENCOUNTER 2017-06-03 17:39 | Observation (INO) ==
[2017-06-03 19:54] LABS: Basophils # 0.1 K/mcL (0.0-0.2); Basophils % 0.5 %; Eosinophils # 0.2 K/mcL (0.0-0.6); Eosinophils % 1.7 %; Hematocrit 35.6 % (35.3-44.9); Hemoglobin 11.4 g/dL (11.5-15.4); Immature Granulocytes % 0.3 % (0-4); Mean Corpuscular Hemoglobin 25.3 pg (28.0-33.3); Mean Corpuscular Volume 79.1 fL (83.0-100.0); Mean Platelet Volume 9.5 fL (9.4-12.4); Monocytes # 0.4 K/mcL (0.0-1.3); Platelet Count 260 K/mcL (140-400); Red Cell Distribution Width 14.7 % (11.5-14.5); Segmented Neutrophils % 72.5 %
[2017-06-03] MEDS ORDERED: Promethazine 25 MG in 0.9 % Sodium Chloride 50 ML IVPB STA (19:56)
[2017-06-03] MEDS ORDERED: *HR* HYDROmorphone (PF) 1 MG/ML SYRINGE IVP ONE ×2 (19:56→22:22)
[2017-06-03] MEDS ORDERED: 0.9 % Sodium Chloride 1,000 ML IVC ONE ×2 (19:56→21:04)
[2017-06-03 20:01] LABS: Bilirubin,Urine Negative (Negative); Blood,Urine Negative (Negative); Clarity,Urine Cloudy (Clear); Color,Urine Yellow (Yellow); Glucose,Urine (UA) Normal (Normal); Ketones,Urine Trace mg/dL (Negative); Leukocyte Esterase,Urine Negative (Negative); Nitrite,Urine Negative (Negative); Protein,Urine Negative (Neg-Trace); Specific Gravity,Urine 1.017 (1.010-1.025); Urobilinogen,Urine Normal (Normal)
[2017-06-03 20:05] LABS: Bacteria,Urine None Seen per hpf (None-Few); Hyaline Casts,Urine None Seen per lpf (None-Few); Squamous Epithelial Cell,Urine Many per lpf (None-Few); WBC,Urine 0-3 per hpf (0-3)
[2017-06-03 20:06] LABS: Alanine Aminotransferase 25 Units/L (0-55); Albumin 3.6 g/dL (3.5-5.0); Alkaline Phosphatase 126 Units/L (38-126); Amylase 22 Units/L (25-125); Aspartate Amino Transferase 30 Units/L (5-34); BUN/Creatinine Ratio 16 (6-26); Bilirubin,Direct 0.3 mg/dL (0.0-0.5); Bilirubin,Indirect 0.4 mg/dL (0.0-1.2); Bilirubin,Total 0.7 mg/dL (0.2-1.2); Blood Urea Nitrogen 11 mg/dL (7-20); Calcium 9.6 mg/dL (8.6-10.8); Carbon Dioxide 23 mEq/L (19-29); Chloride 104 mEq/L (98-109); Globulin 3.7 g/dL (2.4-3.5); Glucose 145 mg/dL (70-99); Lipase 19 Units/L (8-78); Osmolality,Calculated 284 (280-300); Potassium 3.6 mEq/L (3.5-4.5); Sodium 136 mEq/L (136-145); Total Protein 7.3 g/dL (6.0-8.3); eGFR For African Americans > 60 (> 60); eGFR For Non-African Americans > 60 (> 60)
--- NOTE | 2017-06-03 20:21 | Emergency Department Note ---
START Narrative - START START: I examined this patient and my medical decision-making was reviewed with the Resident Physician. I agree with the documented findings, disposition and treatment plan as described except to the extent set forth below. 51 year old female with history of diabetes and abdominal pain has returned after being seen earlier this week and diagnosed with UTI and treated and then discharged home. She has returned today with worsenign abdominal pain and nausea /vomiting. Patient is also experiencing chest pain although sandi is has a long standing history without ER for nuemrous chest pain workups in the ED and admission due to it with pysch admissions. We will do ABCT and labs and then sandra sign out Dr. Hari chi for followup of the CT
[2017-06-03 20:32] LABS: RBC,Urine 0-3 per hpf (0-3)
--- NOTE | 2017-06-03 20:52 | Emergency Department Note ---
Disposition Clinical Impression: Intractable abdominal pain Nausea & vomiting Qualifiers: Vomiting type: unspecified Vomiting Intractability: intractable Qualified Code( s): R11.2 - Nausea with vomiting, unspecified Chest pain Qualifiers: Chest pain type: unspecified Qualified Code(s): R07.9 - Chest pain, unspecified Disposition: Still a Patient Condition: Good Referrals: Joanne Paez MD [Primary Care Provider] - Forms: ED Satisfaction Letter, Work/School Release Abdominal Pain HPI - General Chief Complaint: ED Abdominal Pain Stated Complaint: ABD pain Time Seen by Provider: 06/03/17 19:39 Source: patient Mode of arrival: ambulatory Limitations: no limitations Nursing Notes Reviewed: Yes Vital Signs Reviewed: Yes - History of Present Illness HPI Narrative: Patient presents for evaluation of epigastric pain and chest pressure. Patient has a history of OK. Patient presents for abdominal pain that she states has been going on for approximately 2 weeks. She was seen approximately a week ago for similar pain in the emergency department. Her workup showed urinary tract infection. She is treated with antibiotics and Bentyl. She is going home and the pain is but continued to be progressive in nature. States decreased appetite and inability to tolerate food or fluids. Epigastric pain with associated chest heaviness. Pain Scale: 6 - Related Data Home Medications Medication Instructions Recorded Confirmed Aspirin [Adult Low Dose Aspirin EC] 81 mg PO DAILY 10/26/15 05/12/17 Etonogestrel [Nexplanon] 68 mg SQ AD 10/26/15 05/12/17 Sertraline [Zoloft] 100 mg PO DAILY 10/26/15 05/12/17 Trazodone HCl 50 - 100 mg PO HS PRN 10/26/15 05/12/17 metFORMIN [Glucophage] 1,000 mg PO BIDWM 10/26/15 05/12/17 clonazePAM [Klonopin] 0.5 mg PO HS 03/04/17 05/12/17 Dabigatran Etexilate Mesylate 150 mg PO BID 05/12/17 05/12/17 [Pradaxa] Flecainide [Flecainide] 100 mg PO BID 05/12/17 05/12/17 Ibuprofen [Motrin] 600 mg PO TID PRN 05/12/17 05/12/17 Omeprazole [PriLOSEC] 40 mg PO DAILY 05/12/17 05/12/17 Previous Rx's Medication Instructions Recorded Atorvastatin Calcium [Lipitor] 20 mg PO DAILY #0 04/17/16 Insulin Glargine,Hum.rec.anlog 50 unit SQ BID 30 Days insuln.pen 08/19/16 [Lantus Solostar] Albuterol Sulfate [Proair 2 puff IH Q4H PRN #1 02/08/17 Respiclick] Lisinopril [Zestril] 5 mg PO DAILY #30 02/08/17 Metoprolol [Lopressor] 25 mg PO BID 30 Days tablet 02/08/17 Sulfamethoxazole/Trimeth DS 1 each PO BID #6 tablet 05/25/17 [Bactrim DS] Allergies Allergy/AdvReac Type Severity Reaction Status Date / Time No Known Allergies Allergy Verified 03/25/17 16:13 All systems ED: reviewed and negative except as stated. Constitutional: Reports: weakness. Denies: fever, chills Cardiovascular: Reports: chest pain. Denies: palpitations Respiratory: Denies: cough, dyspnea Gastrointestinal: Reports: abdominal pain, nausea, diarrhea Genitourinary: Denies: urgency, dysuria, frequency Musculoskeletal: Reports: back pain Integumentary: Denies: rash, abrasion, lesions Neurological: Denies: headache, weakness Psychiatric: Denies: anxiety Endocrine: Reports: fatigue Abdominal Pain PMH - Past Medical History Medical history: Reports: atrial fibrillation, COPD, CVA, diabetes, hyperlipidemia, hypertension, myocardial infarction, TIA Female Surgical History: Reports: , cholecystectomy CONTROL SUPERVISOR history: Reports: no CONTROL SUPERVISOR history Psychiatric history: Reports: no psych history - Social History Smoking status: Never smoker Alcohol use: Reports: none Drug use: Reports: none Physical Exam General appearance: Patient complaining of pain that is worse when he tried to sit her up or lie her down. Eyes: anicteric sclerae, moist conjunctivae; PERRL HENT: Atraumatic; oropharynx clear with moist mucous membranes and no mucosal ulcerations Neck: Normal inspection; Trachea midline; FROM, supple Lungs: CTA, with normal respiratory effort and no intercostal retractions CV: RRR, no MRGs Abdomen: Epigastric tenderness. Positive guarding negative rebound. Extremities: No peripheral edema or extremity lymphadenopathy Skin: Normal temperature; no rash, ulcers or lesions Psych: Appropriate mood and affect Neuro: alert and oriented to person, place and time - General Limitations: no limitations General appearance: alert Course - Reevaluation(s) Reevaluation #1: Patient continues to have significant epigastric pain associated with chest heaviness. Patient does have a history of OK. Describes chest pain as pressure. At this time the patient has not improved with initial pain medications. Initial workup including blood work and a CT scan show elevated ketones. - Consultations Consultation #1: Hospitalist, Dr. Khalil accepts the patient. Vital Signs Temperature 98.1 F 06/03/17 18:14 Pulse Rate 94 06/03/17 18:14 Respiratory Rate 14 06/03/17 18:14 Blood Pressure 119/64 06/03/17 18:14 O2 Sat by Pulse Oximetry 97 06/03/17 18:14 Temperature 98.1 F 06/03/17 18:14 Pulse Rate 94 06/03/17 18:14 Respiratory Rate 16 06/03/17 20:38 Blood Pressure 117/71 06/03/17 20:38 O2 Sat by Pulse Oximetry 95 06/03/17 20:38 Oxygen Delivery Oxygen Delivery Room Air Abdominal Pain - Medical Records Medical records reviewed: Yes I reviewed the patient's medical records. - Lab Data Lab results reviewed: Yes I reviewed the patient's lab results. Result diagrams: 06/03/17 19:41 06/03/17 19:41 Lab Results 06/03/17 06/03/17 06/03/17 Range/Units 18:39 18:39 19:41 WBC 9.7 (4.3-11.1) K/mcL RBC 4.50 (3.82-4.97) M/mcL Hgb 11.4 L (11.5-15.4) g/dL Hct 35.6 (35.3-44.9) % MCV 79.1 L (83.0-100.0) fL MCH 25.3 L (28.0-33.3) pg MCHC 32.0 (31.6-35.5) g/dL RDW 14.7 H (11.5-14.5) % Plt Count 260 (140-400) K/mcL MPV 9.5 (9.4-12.4) fL Immature Gran % 0.3 (0-4) % Seg Neutrophils % 72.5 % Lymphocytes % 21.0 % Monocytes % 4.0 % Eosinophils % 1.7 % Basophils % 0.5 % Neutrophils # 7.0 (1.6-8.9) K/mcL Lymphocytes # 2.0 (0.6-4.6) K/mcL Monocytes # 0.4 (0.0-1.3) K/mcL Eosinophils # 0.2 (0.0-0.6) K/mcL Basophils # 0.1 (0.0-0.2) K/mcL PT (9.4-12.1) Seconds INR Sodium (136-145) mEq/L Potassium (3.5-4.5) mEq/L Chloride (98-109) mEq/L Carbon Dioxide (19-29) mEq/L BUN (7-20) mg/dL Creatinine (0.57-1.11) mg/dL Est GFR ( Amer) (> 60) Est GFR (Non-Af Amer) (> 60) BUN/Creatinine Ratio (6-26) Glucose (70-99) mg/dL Calculated Osmolality (280-300) Lactic Acid (0.5-2.2) mmol/L Calcium (8.6-10.8) mg/dL Total Bilirubin (0.2-1.2) mg/dL Direct Bilirubin (0.0-0.5) mg/dL Indirect Bilirubin (0.0-1.2) mg/dL AST (5-34) Units/L ALT (0-55) Units/L Alkaline Phosphatase (38-126) Units/L Troponin I (0-0.03) ng/mL Serum Total Protein (6.0-8.3) g/dL Albumin (3.5-5.0) g/dL Globulin (2.4-3.5) g/dL Albumin/Globulin Ratio (1.1-2.2) Amylase (25-125) Units/L Lipase (8-78) Units/L Beta-Hydroxybutyric Acd (0.02-0.27) mmol/L Urine Color Yellow (Yellow) Urine Clarity Cloudy A (Clear) Urine pH 6.0 (5.0-8.0) pH Units Ur Specific [place] 1.017 (1.010-1.025) Urine Protein Negative (Neg-Trace) mg/dL Urine Glucose (UA) Normal (Normal) mg/dL Urine Ketones Trace H (Negative) mg/dL Urine Blood Negative (Negative) Urine Nitrite Negative (Negative) Urine Bilirubin Negative (Negative) Urine Urobilinogen Normal (Normal) mg/dL Ur Leukocyte Esterase Negative (Negative) Urine Microscopic RBC 0-3 (0-3) per hpf Urine Microscopic WBC 0-3 (0-3) per hpf Ur Squamous Epith Cells Many H (None-Few) per lpf Urine Bacteria None Seen (None-Few) per hpf Hyaline Casts None Seen (None-Few) per lpf Ur Culture Indicated? NO (NO) Urine Test Negative (Negative) 06/03/17 06/03/17 06/03/17 Range/Units 19:41 19:41 19:41 WBC (4.3-11.1) K/mcL RBC (3.82-4.97) M/mcL Hgb (11.5-15.4) g/dL Hct (35.3-44.9) % MCV (83.0-100.0) fL MCH (28.0-33.3) pg MCHC (31.6-35.5) g/dL RDW (11.5-14.5) % Plt Count (140-400) K/mcL MPV (9.4-12.4) fL Immature Gran % (0-4) % Seg Neutrophils % % Lymphocytes % % Monocytes % % Eosinophils % % Basophils % % Neutrophils # (1.6-8.9) K/mcL Lymphocytes # (0.6-4.6) K/mcL Monocytes # (0.0-1.3) K/mcL Eosinophils # (0.0-0.6) K/mcL Basophils # (0.0-0.2) K/mcL PT 12.0 (9.4-12.1) Seconds INR 1.1 Sodium 136 (136-145) mEq/L Potassium 3.6 (3.5-4.5) mEq/L Chloride 104 (98-109) mEq/L Carbon Dioxide 23 (19-29) mEq/L BUN 11 (7-20) mg/dL Creatinine 0.68 (0.57-1.11) mg/dL Est GFR ( Amer) > 60 (> 60) Est GFR (Non-Af Amer) > 60 (> 60) BUN/Creatinine Ratio 16 (6-26) Glucose 145 H (70-99) mg/dL Calculated Osmolality 284 (280-300) Lactic Acid (0.5-2.2) mmol/L Calcium 9.6 (8.6-10.8) mg/dL Total Bilirubin 0.7 (0.2-1.2) mg/dL Direct Bilirubin 0.3 (0.0-0.5) mg/dL Indirect Bilirubin 0.4 (0.0-1.2) mg/dL AST 30 (5-34) Units/L ALT 25 (0-55) Units/L Alkaline Phosphatase 126 (38-126) Units/L Troponin I 0.00 (0-0.03) ng/mL Serum Total Protein 7.3 (6.0-8.3) g/dL Albumin 3.6 (3.5-5.0) g/dL Globulin 3.7 H (2.4-3.5) g/dL Albumin/Globulin Ratio 1.0 L (1.1-2.2) Amylase 22 L (25-125) Units/L Lipase 19 (8-78) Units/L Beta-Hydroxybutyric Acd (0.02-0.27) mmol/L Urine Color (Yellow) Urine Clarity (Clear) Urine pH (5.0-8.0) pH Units Ur Specific [place] (1.010-1.025) Urine Protein (Neg-Trace) mg/dL Urine Glucose (UA) (Normal) mg/dL Urine Ketones (Negative) mg/dL Urine Blood (Negative) Urine Nitrite (Negative) Urine Bilirubin (Negative) Urine Urobilinogen (Normal) mg/dL Ur Leukocyte Esterase (Negative) Urine Microscopic RBC (0-3) per hpf Urine Microscopic WBC (0-3) per hpf Ur Squamous Epith Cells (None-Few) per lpf Urine Bacteria (None-Few) per hpf Hyaline Casts (None-Few) per lpf Ur Culture Indicated? (NO) Urine Test (Negative) 06/03/17 06/03/17 Range/Units 19:41 21:20 WBC (4.3-11.1) K/mcL RBC (3.82-4.97) M/mcL Hgb (11.5-15.4) g/dL Hct (35.3-44.9) % MCV (83.0-100.0) fL MCH (28.0-33.3) pg MCHC (31.6-35.5) g/dL RDW (11.5-14.5) % Plt Count (140-400) K/mcL MPV (9.4-12.4) fL Immature Gran % (0-4) % Seg Neutrophils % % Lymphocytes % % Monocytes % % Eosinophils % % Basophils % % Neutrophils # (1.6-8.9) K/mcL Lymphocytes # (0.6-4.6) K/mcL Monocytes # (0.0-1.3) K/mcL Eosinophils # (0.0-0.6) K/mcL Basophils # (0.0-0.2) K/mcL PT (9.4-12.1) Seconds INR Sodium (136-145) mEq/L Potassium (3.5-4.5) mEq/L Chloride (98-109) mEq/L Carbon Dioxide (19-29) mEq/L BUN (7-20) mg/dL Creatinine (0.57-1.11) mg/dL Est GFR ( Amer) (> 60) Est GFR (Non-Af Amer) (> 60) BUN/Creatinine Ratio (6-26) Glucose (70-99) mg/dL Calculated Osmolality (280-300) Lactic Acid 0.7 (0.5-2.2) mmol/L Calcium (8.6-10.8) mg/dL Total Bilirubin (0.2-1.2) mg/dL Direct Bilirubin (0.0-0.5) mg/dL Indirect Bilirubin (0.0-1.2) mg/dL AST (5-34) Units/L ALT (0-55) Units/L Alkaline Phosphatase (38-126) Units/L Troponin I (0-0.03) ng/mL Serum Total Protein (6.0-8.3) g/dL Albumin (3.5-5.0) g/dL Globulin (2.4-3.5) g/dL Albumin/Globulin Ratio (1.1-2.2) Amylase (25-125) Units/L Lipase (8-78) Units/L Beta-Hydroxybutyric Acd 0.63 H (0.02-0.27) mmol/L Urine Color (Yellow) Urine Clarity (Clear) Urine pH (5.0-8.0) pH Units Ur Specific [place] (1.010-1.025) Urine Protein (Neg-Trace) mg/dL Urine Glucose (UA) (Normal) mg/dL Urine Ketones (Negative) mg/dL Urine Blood (Negative) Urine Nitrite (Negative) Urine Bilirubin (Negative) Urine Urobilinogen (Normal) mg/dL Ur Leukocyte Esterase (Negative) Urine Microscopic RBC (0-3) per hpf Urine Microscopic WBC (0-3) per hpf Ur Squamous Epith Cells (None-Few) per lpf Urine Bacteria (None-Few) per hpf Hyaline Casts (None-Few) per lpf Ur Culture Indicated? (NO) Urine Test (Negative) - Radiology Data Radiology results reviewed: Yes I reviewed the patient's radiology results. - EKG Data EKG attestation: Yes I reviewed and interpreted this EKG. EKG results narrative: EKG shows sinus bradycardia with ventricular rate of 59. DC interval 150. QRS 103. QTC 420. Patient has no significant ST elevations or depressions. No previous EKG for comparison.
[2017-06-03 21:29] LABS: INR 1.1
[2017-06-04] MEDS ORDERED: Ondansetron 4 MG/2 ML VIAL IVP PRN (00:34)
[2017-06-04] MEDS ORDERED: Naloxone 0.4 MG/ML INJ IVP PRN (00:34)
[2017-06-04] MEDS ORDERED: Dextrose Gel 15 GM PO PRN ×2 (00:38)
[2017-06-04] MEDS ORDERED: D5% in Water 1,000 ML IVC PRN (00:38)
[2017-06-04] MEDS ORDERED: *HR* Dextrose 50 % in Water (Syg) 50 ML SYRINGE IVP PRN (00:38)
[2017-06-04] MEDS: 0.9 % Sodium Chloride 1,000 ML IVC SCH ×2 (01:10→11:18)
[2017-06-04] MEDS: *HR* Morphine 2 MG/ML SYRINGE IVP PRN ×3 (01:24→11:08)
[2017-06-04] MEDS: Insulin DETEMIR 100 UNIT/ML X5UNITS SQ SCH ×3 (01:39→20:55)
[2017-06-04 04:30] LABS: Basophils % 0.5 %; Eosinophils # 0.2 K/mcL (0.0-0.6); Eosinophils % 2.1 %; Hematocrit 33.5 % (35.3-44.9); Hemoglobin 10.6 g/dL (11.5-15.4); Immature Granulocytes % 0.8 % (0-4); Lymphocytes # 2.1 K/mcL (0.6-4.6); Lymphocytes % 24.1 %; Mean Corpuscular HGB Conc 31.6 g/dL (31.6-35.5); Mean Corpuscular Hemoglobin 25.1 pg (28.0-33.3); Mean Corpuscular Volume 79.4 fL (83.0-100.0); Mean Platelet Volume 10.4 fL (9.4-12.4); Monocytes # 0.4 K/mcL (0.0-1.3); Monocytes % 4.4 %; Nucleated Red Blood Cells 0.2 /100 WBC (0); Platelet Count 248 K/mcL (140-400); Red Blood Count 4.22 M/mcL (3.82-4.97); Red Cell Distribution Width 14.6 % (11.5-14.5); Segmented Neutrophils % 68.1 %
[2017-06-04] MEDS: *HR* HYDROcodone/Acet 5/325 mg TABLET PO PRN ×3 (04:41→16:27)
[2017-06-04 04:42] LABS: BUN/Creatinine Ratio 15 (6-26); Blood Urea Nitrogen 9 mg/dL (7-20); Calcium 8.1 mg/dL (8.6-10.8); Carbon Dioxide 23 mEq/L (19-29); Chloride 108 mEq/L (98-109); Glucose 140 mg/dL (70-99); Magnesium 1.2 mg/dL (1.6-2.6); Osmolality,Calculated 287 (280-300); Potassium 3.6 mEq/L (3.5-4.5); Sodium 138 mEq/L (136-145); eGFR For African Americans > 60 (> 60); eGFR For Non-African Americans > 60 (> 60)
--- NOTE | 2017-06-04 04:50 | Internal Med History&Physical ---
Date of Encounter: 06/04/17 Time of Encounter: 00:20 Assessment and Plan (1) Acute gastroenteritis Current visit: Yes Status: Acute Pt has abd pain x 1 day, with nausea and diarrhea, CT abd unremarkable, normal bilirubin/liver enzyme/lipase. - Consider acute gastroenteritis, possibly viral - Place pt on IVF, clear liquid diet. - GI penal for diarrhea - Symptomatic control (2) DVT prophylaxis Current visit: No Status: Acute On pradaxa (3) Type 2 diabetes mellitus Current visit: No Status: Chronic Cover pt with basal and sliding scale insulin Qualifiers: Diabetes mellitus complication status: with neurologic complications Diabetes mellitus complication detail: with polyneuropathy Diabetes mellitus correction insulin use: with correction use Qualified Code(s): E11.42 - Type 2 diabetes mellitus with diabetic polyneuropathy; Z79.4 - [facility] (current) use of insulin (4) Paroxysmal atrial fibrillation Current visit: No Status: Acute NSR now, cont pradaxa for AC. (5) Essential hypertension Current visit: No Status: Acute Cont home meds. Internal Medicine - H&P: HPI Chief complaint: Abd pain Admitted From: Home Plans for Post Hospital Care: Home History of present illness: Ms. Jacome is a 51 year old female With history of DM, HTN, PAF on pradaxa present to ER for abdominal pain, nausea and diarhea for one day. Pt said abd pain started from today, located on epigastric area, cramping, constant, 9/10. with nausea but no vomiting. Pt also has diarrhea. She has chills but not sure if she has fever. Pt denies chest pain or SOB. She denies recent abx use. Past Med Surg Social Fam HX - Past Medical History Medical history: atrial fibrillation, COPD, CVA, diabetes, hyperlipidemia, hypertension, myocardial infarction, TIA Psychiatric history: no psych history - Past Surgical History Surgical History: , cholecystectomy - Social History Smoking Status: Never smoker Smokeless Tobacco Status: No Alcohol use: none Drug use: none - Family History Mother Living Status: Hx Family Cardiac Disorders: Yes Hx Family Respiratory Disorders: Yes (copd) Hx Family Cancer: Yes (lung cancer) Hx Family Endocrine Disorder: Yes (DM type II) Father Adopted: No Family Member Ethnicity: Non- Living Status: Hx Family Cardiac Disorders: Yes Hx Family Respiratory Disorders: Yes Hx Family Cancer: Yes (LUNG) Hx Family GI Disorders: No Hx Family Endocrine Disorder: Yes (DM) Hx Family Neuromuscular Disorders: No Hx Family Neurologic Disorders: No Hx Family HEENT Disorders: No Hx Family Autoimmune Disorders: No Internal Medicine - H&P: Meds Aspirin [Adult Low Dose Aspirin EC] 81 mg PO DAILY 10/26/15 [History] Etonogestrel [Nexplanon] 68 mg SQ AD 10/26/15 [History] metFORMIN [Glucophage] 1,000 mg PO BIDWM 10/26/15 [History] Albuterol Sulfate [Proair Respiclick] 2 puff IH Q4H PRN #1 02/08/17 [Rx] Lisinopril [Zestril] 5 mg PO DAILY #30 02/08/17 [Rx] Metoprolol [Lopressor] 25 mg PO BID 30 Days tablet 02/08/17 [Rx] clonazePAM [Klonopin] 0.5 mg PO HS 03/04/17 [History] Dabigatran Etexilate Mesylate [Pradaxa] 150 mg PO BID 05/12/17 [History] Flecainide [Flecainide] 100 mg PO BID 05/12/17 [History] Ibuprofen [Motrin] 600 mg PO TID PRN 05/12/17 [History] Omeprazole [PriLOSEC] 40 mg PO DAILY 05/12/17 [History] Atorvastatin Calcium [Lipitor] 20 mg PO HS 06/03/17 [History] Sertraline [Zoloft] 300 mg PO DAILY 06/03/17 [History] traZODone [TraZODone] 50 - 100 mg PO HS PRN 06/03/17 [History] 3 Allergy/AdvReac Type Severity Reaction Status Date / Time No Known Allergies Allergy Verified 03/25/17 16:13 All Systems PM: A 10-system review of systems was performed and is negative for pertinent findings except as documented above in the HPI. - Constitutional Vitals: Temp Pulse Resp BP Pulse Ox 97.9 F 72 16 94/59 97 06/04/17 02:56 06/04/17 02:56 06/04/17 02:56 06/04/17 02:56 06/04/17 02:56 General appearance: Present: A&O X 3, no acute distress, answers questions appropriately - Head Head exam: Present: atraumatic, normocephalic - Eye Eye exam: Present: PERRL, conjuntiva pink, sclera anicteric Pupils: Present: PERRL - Neck Neck exam general surgery: Present: supple, trachea midline. Absent: lymphadenopathy - Respiratory Respiratory exam: Present: CTAB. Absent: accessory muscle use, rales, rhonchi, wheezes - Cardiovascular Cardiovascular exam: Present: RRR, +S1, +S2. Absent: diastolic murmur, gallop, rubs, systolic murmur - GI/Abdominal GI/Abdominal exam: Present: normal bowel sounds, soft, tenderness (Mild epigatric tenderness w/o rebound or guarding), no peritoneal signs. Absent: distended - Extremities Exam Extremities exam: Present: warm, radial pulses palpable and symmetrical. Absent : calf tenderness, cyanotic, pedal edema - Neurological Exam Neurological exam: Present: CN II-XII intact, oriented X3, no focal deficits. Absent: pronater drift, facial droop, speech deficit - Skin Skin exam: Present: dry, intact Internal Med - H&P Results - Labs CBC & Chem 7: 06/04/17 03:43 06/04/17 03:43 Labs: Short CBC 06/04/17 Range/Units 03:43 WBC 8.7 (4.3-11.1) K/mcL Hgb 10.6 L (11.5-15.4) g/dL Hct 33.5 L (35.3-44.9) % Plt Count 248 (140-400) K/mcL Neutrophils # 6.0 (1.6-8.9) K/mcL BMP 06/04/17 03:43 Sodium 138 Potassium 3.6 Chloride 108 Carbon Dioxide 23 BUN 9 Creatinine 0.61 Glucose 140 H Calcium 8.1 L D - EKG Data -: EKG Interpreted by Myself EKG shows normal: sinus rhythm Rate: normal
[2017-06-04] MEDS: Magnesium Oxide 400 MG TABLET PO SCH ×2 (08:26→21:04)
[2017-06-04] MEDS: Insulin LISPRO 300 UNITS/3 ML VIAL SQ SCH ×4 (08:26→20:54)
[2017-06-04] MEDS: *HR* Dabigatran 150 MG CAPSULE PO SCH ×2 (08:26→21:04)
[2017-06-04] MEDS: Aspirin Enteric Coated 81 MG Tablet PO SCH (08:27)
--- NOTE | 2017-06-04 17:21 | Internal Med Progress Note ---
Date of Encounter: 06/04/17 Time of Encounter: 09:00 - Assessment and plan (1) Type 2 diabetes mellitus Current Visit: Yes Status: Chronic Assessment and plan: A1c 11.0 in January, will redraw in the a.m. continue SSI, diabetic diet, and accuchecks achs. 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 Continue Pradaxa. (3) Essential hypertension Current Visit: Yes Status: Acute Assessment and plan: Patient has been mildly hypotensive, she has been getting narcotic pain medication all day. It has been stopped. We will reassess vital signs accordingly. Continue home medications. (4) Acute gastroenteritis Current Visit: Yes Status: Acute Assessment and plan: Patient reports approximately 2 week to "several month" history of abdominal pain, nausea without vomiting and diarrhea with any solid food intake. CAT scan is unremarkable. Liver enzymes are within normal limits. Patient is very tender to palpation in epigastric area. We will try a GI cocktail tonight. Continue IV fluids and clear liquid diet. GI panel is ordered and pending. I have consulted GI to see patient tomorrow for recommendations. I appreciate their recommendations consultation. I suspect there may be some drug seeking component underlying. There is no doubt the patient has pain, however she has asked for Dilaudid IV. After her IV morphine was discontinued, she began having new symptoms that she had not complained of either admission or throughout the day. We will continue to monitor and treat pain with by mouth Maddock, the GI cocktail, patient is also on Carafate and PPI. (5) DVT prophylaxis Current Visit: No Status: Acute Assessment and plan: Encourage early ambulation. - Time Spent With Patient less than 15 minutes - Subjective Interval history: Pt was seen and assessed at bedside at 0900 this am. Pt reports longer course of abdominal pain than mentioned on admission. Pt states that it has been going on for several weeks and that she is only able to tolerate liquids. She reports diarrhea with any solids. She reports nausea without vomiting. NO chest pain, SOB, peripheral edema, dizziness, or vision changes. Pt is very tender to palpation in epigastric area. - Constitutional Vitals: Temp Pulse Resp BP Pulse Ox 98.0 F 60 14 95/59 100 06/04/17 14:54 06/04/17 14:54 06/04/17 14:54 06/04/17 14:54 06/04/17 14:54 General appearance: Present: cooperative, A&O X 3, pleasant, no acute distress, answers questions appropriately - Head Head exam: Present: atraumatic, normal inspection, normocephalic - Eye Eye exam: Present: normal appearance, conjuntiva pink, sclera anicteric - Neck Neck exam general surgery: Present: normal inspection, supple, trachea midline. Absent: lymphadenopathy, tenderness - Respiratory Respiratory exam: Present: CTAB. Absent: accessory muscle use, rales, respiratory distress, rhonchi, wheezes - Cardiovascular Cardiovascular exam: Present: RRR, +S1, +S2. Absent: diastolic murmur, gallop, rubs, systolic murmur - GI/Abdominal GI/Abdominal exam: Present: normal bowel sounds, soft, tenderness, no peritoneal signs. Absent: distended - Extremities Exam Extremities exam: Present: normal inspection, warm, radial pulses palpable and symmetrical. Absent: calf tenderness, cyanotic, pedal edema, tenderness - Neurological Exam Neurological exam: Present: alert, oriented X3, no focal deficits. Absent: facial droop, speech deficit - Skin Skin exam: Present: dry, intact, normal color, warm. Absent: rash Internal Medicine: Result - Labs CBC & Chem 7: 06/04/17 03:43 06/04/17 03:43 Labs: Short CBC 06/04/17 Range/Units 03:43 WBC 8.7 (4.3-11.1) K/mcL Hgb 10.6 L (11.5-15.4) g/dL Hct 33.5 L (35.3-44.9) % Plt Count 248 (140-400) K/mcL Neutrophils # 6.0 (1.6-8.9) K/mcL BMP 06/04/17 03:43 Sodium 138 Potassium 3.6 Chloride 108 Carbon Dioxide 23 BUN 9 Creatinine 0.61 Glucose 140 H Calcium 8.1 L D - ABG Interpretation ABG results: PT/INR, D-dimer PT 12.0 Seconds (9.4-12.1) 06/03/17 19:41 Consult Discharge Plan - Plan Referrals: Armin Posey MD [Partnered Physician] - 06/11/17 8:30 am Joanne Paez MD [Primary Care Provider] -
[2017-06-04] MEDS: Acetaminophen 325 MG TABLET PO PRN (19:10)
[2017-06-04] MEDS ORDERED: GI Cocktail 40 ML EACH PO ONE (20:00)
--- NOTE | 2017-06-04 20:36 | Electrocardiograph Report ---
[address] [place], [place] [address] Test Date: 2017-06-03 Pat Name: Christie Jacome Department: 102 Room: 3B Gender: F [place]: Romy : 1965 Requested By: Austin Weiner Order Number: [id number] Reading MD: Allen Caal MD Measurements Intervals [place] Rate: 59 P: 54 MN: 150 QRS: 22 QRSD: 103 T: 26 QT: 421 QTc: 420 Interpretive Statements SINUS BRADYCARDIA Electronically Signed On 06-04-2017 20:35:14 EST by Allen Caal MD
[2017-06-04] MEDS: clonazePAM 0.5 MG TABLET PO SCH (21:04)
[2017-06-04] MEDS: traZODone 50 MG TABLET PO PRN (21:04)
[2017-06-05 04:06] LABS: Basophils % 0.4 %; Eosinophils # 0.2 K/mcL (0.0-0.6); Eosinophils % 2.1 %; Hemoglobin 10.5 g/dL (11.5-15.4); Immature Granulocytes % 0.3 % (0-4); Lymphocytes # 1.9 K/mcL (0.6-4.6); Mean Corpuscular HGB Conc 30.9 g/dL (31.6-35.5); Mean Corpuscular Hemoglobin 24.8 pg (28.0-33.3); Mean Corpuscular Volume 80.2 fL (83.0-100.0); Monocytes # 0.3 K/mcL (0.0-1.3); Monocytes % 4.1 %; Neutrophils # 4.6 K/mcL (1.6-8.9); Platelet Count 254 K/mcL (140-400); Red Blood Count 4.24 M/mcL (3.82-4.97); Red Cell Distribution Width 14.8 % (11.5-14.5); Segmented Neutrophils % 66.1 %
[2017-06-05 04:09] LABS: Beta-Hydroxybutyric Acid 0.27 mmol/L (0.02-0.27)
[2017-06-05 04:19] LABS: BUN/Creatinine Ratio 11 (6-26); Blood Urea Nitrogen 7 mg/dL (7-20); Calcium 8.1 mg/dL (8.6-10.8); Carbon Dioxide 23 mEq/L (19-29); Chloride 108 mEq/L (98-109); Glucose 113 mg/dL (70-99); Magnesium 1.5 mg/dL (1.6-2.6); Osmolality,Calculated 289 (280-300); Potassium 3.6 mEq/L (3.5-4.5); Sodium 140 mEq/L (136-145); eGFR For African Americans > 60 (> 60); eGFR For Non-African Americans > 60 (> 60)
[2017-06-05 04:31] LABS: Hemoglobin A1C 8.4 %
[2017-06-05] MEDS: *HR* HYDROcodone/Acet 5/325 mg TABLET PO PRN ×3 (06:38→15:57)
[2017-06-05] MEDS: Insulin LISPRO 300 UNITS/3 ML VIAL SQ SCH ×4 (07:58→21:57)
[2017-06-05] MEDS: *HR* Dabigatran 150 MG CAPSULE PO SCH ×2 (09:00→21:54)
[2017-06-05] MEDS: Insulin DETEMIR 100 UNIT/ML X5UNITS SQ SCH ×2 (09:00→21:56)
[2017-06-05] MEDS: Magnesium Oxide 400 MG TABLET PO SCH ×2 (09:00→21:56)
[2017-06-05] MEDS: Acetaminophen 325 MG TABLET PO PRN (09:00)
[2017-06-05] MEDS: Aspirin Enteric Coated 81 MG Tablet PO SCH (09:00)
--- NOTE | 2017-06-05 12:24 | Gastroenterology Consult Note ---
<Kajal Tinoco - Last Filed: 06/05/17 12:22> Date of Encounter: 06/05/17 Time of Encounter: 11:35 - Assessment and plan (1) Intractable abdominal pain Current Visit: Yes Status: Acute Assessment and plan: 51 year old female with abdominal pain nausea, vomiting, and diarrhea. She had cholecystectomy 07/31, ERCP with sphincterotomy 08/31 and was doing well until approx 2 weeks ago. Has epigastric pain radiating to her back. Will proceed with EGD, if normal she will need MRCP. She needs continued on PPI. (2) Nausea & vomiting Current Visit: Yes Status: Acute Assessment and plan: Continued on antiemetics, PPI, IVF. EGD today advance diet as tolerated. Qualifiers: Vomiting type: unspecified Vomiting Intractability: intractable Qualified Code(s): R11.2 - Nausea with vomiting, unspecified - Time Spent With Patient Total time spent is greater than 50% in coordination of care (as documented) at patient's floor/unit and/or counseling patient: GI History of Present Illness - Data of Consult Patient: known to practice within the last 3 years Consult date: 06/05/17 Requesting Physician: Evangelina Hazel CNP - Consult Narrative Reason for consult: abdominal pain History of present illness: Ms. Jacome is a 51 year old female with PMHx of Afib, COPD, CVA, DM, HLD, HTN, IN who is s/p lap james on 08/05/[address] Brannon. She is an established pt and had ERCP 08/31 which showed dilated hepatic duct but CBD was normal with no stones. Biliary sphincterotomy was performed. She states she had been doing well since then until 05/27/17 when she started having nausea and vomiting, epigastric pain that radiates under her breasts bilaterally to her back and diarrhea every time she eats. She denies fever but had chills. She denies sick contacts. She is continued on PPI at home. CT abdomen was unremarkable. Labs were reviewed and unremarkable. Procedures: EGD 09/09/16 Dr. Mendoza: with full stomach gastritis, no ulcers or bleeding, duodenum normal, no obvious esophagitis. Colonoscopy 09/09/16 Dr. Mendoza: with one small sigmoid polyp. NSAIDs: Ibuprofen, ASA Anticoagulation: pradaxa Past Med Surg Social Fam HX - Past Medical History Medical history: atrial fibrillation, COPD, CVA, diabetes, hyperlipidemia, hypertension, myocardial infarction, TIA Psychiatric history: no psych history - Past Surgical History Surgical History: , cholecystectomy - Social History Smoking Status: Never smoker Smokeless Tobacco Status: No Alcohol use: none Drug use: none - Family History Mother Living Status: Hx Family Cardiac Disorders: Yes Hx Family Respiratory Disorders: Yes (copd) Hx Family Cancer: Yes (lung cancer) Hx Family Endocrine Disorder: Yes (DM type II) Father Adopted: No Family Member Ethnicity: Non- Living Status: Hx Family Cardiac Disorders: Yes Hx Family Respiratory Disorders: Yes Hx Family Cancer: Yes (LUNG) Hx Family GI Disorders: No Hx Family Endocrine Disorder: Yes (DM) Hx Family Neuromuscular Disorders: No Hx Family Neurologic Disorders: No Hx Family HEENT Disorders: No Hx Family Autoimmune Disorders: No Review of Systems: GI: as per [place] GENER[facility]: denies fever, has some chills EYES: denies yellow discoloration ENT: denies pain with swallowing or difficulty swallowing CARDIO: denies chest pain, palpitations RESP: Shortness of breath with exertion : denies change in color of urine NEURO: denies any weakness HEME: Denies any bruising MS: denies joint pain, joint swelling or back pain. DERM: denies rash or itching PSYCH: Denies history of anxiety or depression - Constitutional Vitals: Temp Pulse Resp BP Pulse Ox 98.9 F 58 16 111/66 97 06/05/17 11:10 06/05/17 11:10 06/05/17 11:10 06/05/17 11:10 06/05/17 11:10 Exam: CONSTITUTIONAL:~alert, no acute distress.~HEAD:~normocephalic.~EYES:~no jaundice.~NECK:~no obvious swelling.~HEART:~regular rate and rhythm, no murmurs. ~LUNGS:~bilateral good air entry.~ABDOMEN:~obese, non distended, diffuse tenderness, no masses pulpable, no organomegaly.~RECTAL EXAM:~Deferred.~ EXTREMITIES:~no clubbing, cyanosis or edema.~SKIN:~pallor noted, no stigmata of chronic liver disease.~NEUROLOGIC:~no obvious focal defect.~~~~ Results - Labs CBC & Chem 7: 06/05/17 03:26 06/05/17 03:26 Labs: Last Result Calcium 8.1 mg/dL (8.6-10.8) L 06/05/17 03:26 Troponin I 0.00 ng/mL (0-0.03) 06/03/17 19:41 Entire Visit Hgb 10.5 g/dL (11.5-15.4) L 06/05/17 03:26 Hct 34.0 % (35.3-44.9) L 06/05/17 03:26 PT 12.0 Seconds (9.4-12.1) 06/03/17 19:41 Total Bilirubin 0.7 mg/dL (0.2-1.2) 06/03/17 19:41 AST 30 Units/L (5-34) 06/03/17 19:41 ALT 25 Units/L (0-55) 06/03/17 19:41 Amylase 22 Units/L (25-125) L 06/03/17 19:41 Lipase 19 Units/L (8-78) 06/03/17 19:41 - ABG ABG results: PT/INR, D-dimer PT 12.0 Seconds (9.4-12.1) 06/03/17 19:41 Consult Discharge Plan - Plan Referrals: Armin Posey MD [Partnered Physician] - 06/11/17 8:30 am Joanne Paez MD [Primary Care Provider] - 06/14/17 1:45 pm <Adrienne Stevens - Last Filed: 06/05/17 20:05> Date of Encounter: 06/05/17 Time of Encounter: 20:00 - Time Spent With Patient Total time spent is greater than 50% in coordination of care (as documented) at patient's floor/unit and/or counseling patient: GI History of Present Illness - Data of Consult Requesting Physician: Evangelina Hazel CNP - Consult Narrative History of present illness: Ms. Jacome is a 51 year old female - Constitutional Vitals: Temp Pulse Resp BP Pulse Ox 98.3 F 61 16 131/68 99 06/05/17 19:13 06/05/17 19:34 06/05/17 19:34 06/05/17 19:34 06/05/17 19:34 Results - Labs CBC & Chem 7: 06/05/17 03:26 06/05/17 03:26 Labs: Last Result Calcium 8.1 mg/dL (8.6-10.8) L 06/05/17 03:26 Troponin I 0.00 ng/mL (0-0.03) 06/03/17 19:41 Entire Visit Hgb 10.5 g/dL (11.5-15.4) L 06/05/17 03:26 Hct 34.0 % (35.3-44.9) L 06/05/17 03:26 PT 12.0 Seconds (9.4-12.1) 06/03/17 19:41 Total Bilirubin 0.7 mg/dL (0.2-1.2) 06/03/17 19:41 AST 30 Units/L (5-34) 06/03/17 19:41 ALT 25 Units/L (0-55) 06/03/17 19:41 Amylase 22 Units/L (25-125) L 06/03/17 19:41 Lipase 19 Units/L (8-78) 06/03/17 19:41 - ABG ABG results: PT/INR, D-dimer PT 12.0 Seconds (9.4-12.1) 06/03/17 19:41 - Attending Attestation I examined this patient and my medical decision-making was reviewed with the Resident Physician. I agree with the documented findings, disposition and treatment plan as described except to the extent set forth below.
--- NOTE | 2017-06-05 15:07 | Internal Med Progress Note ---
Date of Encounter: 06/05/17 Time of Encounter: 09:30 - Assessment and plan (1) Type 2 diabetes mellitus Current Visit: Yes Status: Chronic Assessment and plan: A1c 11.0 in January, 8.4% now. continue SSI, diabetic diet, and accuchecks achs. 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 Continue Pradaxa. Continue telemetry. (3) Essential hypertension Current Visit: Yes Status: Acute Assessment and plan: Blood pressures been well controlled and normotensive. Continue home medications. (4) Acute gastroenteritis Current Visit: Yes Status: Acute Assessment and plan: Patient reports approximately 2 week to "several month" history of abdominal pain, nausea without vomiting and diarrhea with any solid food intake. CAT scan is unremarkable. Liver enzymes are within normal limits. Patient is very tender to palpation in epigastric area. Continue IV fluids and clear liquid diet. Patient was made nothing by mouth by GI for EGD today. GI panel was canceled due to patient not having bowel movement or diarrhea. GI has been consulted, and appreciate their recommendations consultation. She is going to be scheduled for an EGD today. -Per GI note, patient had cholecystectomy in July,, ERCP with sphincterectomy in August,. - EGD today. If it is normal, will need MRCP. Continue PPI Continue antiemetics Continue IV fluids Advance diet as tolerated after EGD. (5) DVT prophylaxis Current Visit: No Status: Acute Assessment and plan: Encourage early ambulation. PENNIE ray ordered. - Subjective Interval history: Pt was seen and assessed at bedside at 0930 this am. Patient reports continued abdominal pain, remains tender to palpation. States that she has not been able to even attempt solid foods yet. She was made nothing by mouth by GI. Patient will have EGD today. Patient understands procedure, denies any questions. She denies headache, dizziness, chest pain, shortness of breath, urinary symptoms or diarrhea. - Constitutional Vitals: Temp Pulse Resp BP Pulse Ox 98.9 F 58 16 111/66 97 06/05/17 11:10 06/05/17 11:10 06/05/17 11:10 06/05/17 11:10 06/05/17 11:10 General appearance: Present: cooperative, A&O X 3, pleasant, no acute distress, answers questions appropriately - Head Head exam: Present: atraumatic, normal inspection, normocephalic - Eye Eye exam: Present: normal appearance, conjuntiva pink, sclera anicteric - Neck Neck exam general surgery: Present: supple, trachea midline - Respiratory Respiratory exam: Present: CTAB. Absent: accessory muscle use, chest wall tenderness, rales, respiratory distress, rhonchi, wheezes - Cardiovascular Cardiovascular exam: Present: RRR, +S1, +S2. Absent: diastolic murmur, gallop, rubs, systolic murmur - GI/Abdominal GI/Abdominal exam: Present: normal bowel sounds, soft, tenderness. Absent: distended, hepatomegaly - Extremities Exam Extremities exam: Present: normal capillary refill, warm, radial pulses palpable and symmetrical. Absent: calf tenderness, cyanotic, pedal edema - Neurological Exam Neurological exam: Present: alert, oriented X3, no focal deficits. Absent: facial droop, speech deficit - Skin Skin exam: Present: dry, intact, normal color, warm. Absent: rash Internal Medicine: Result - Labs CBC & Chem 7: 06/05/17 03:26 06/05/17 03:26 Labs: Short CBC 06/05/17 Range/Units 03:26 WBC 7.0 (4.3-11.1) K/mcL Hgb 10.5 L (11.5-15.4) g/dL Hct 34.0 L (35.3-44.9) % Plt Count 254 (140-400) K/mcL Neutrophils # 4.6 (1.6-8.9) K/mcL BMP 06/05/17 03:26 Sodium 140 Potassium 3.6 Chloride 108 Carbon Dioxide 23 BUN 7 Creatinine 0.63 Glucose 113 H Calcium 8.1 L - ABG Interpretation ABG results: PT/INR, D-dimer PT 12.0 Seconds (9.4-12.1) 06/03/17 19:41 Consult Discharge Plan - Plan Referrals: Armin Posey MD [Partnered Physician] - 06/11/17 8:30 am Joanne Paez MD [Primary Care Provider] - 06/14/17 1:45 pm
[2017-06-05] MEDS ORDERED: 0.9 % Sodium Chloride 500 ML IVC SCH (19:45)
[2017-06-05] MEDS ORDERED: Simethicone 40 MG/0.6 ML MLS IR ONE (20:13)
[2017-06-05] MEDS ORDERED: *HR* FentaNYL (PF) 100 MCG/2 ML VIAL IVP ONE (20:13)
[2017-06-05] MEDS ORDERED: Tetracaine/Benzocaine/Butamben 200MG/SPRAY (100SPY/BOT) MM ONE (20:13)
[2017-06-05] MEDS ORDERED: *HR* Midazolam HCl 5 MG/5 ML VIAL IVP ONE ×2 (20:13→20:24)
--- NOTE | 2017-06-05 20:14 | Pre-Sedation Evaluation ---
Pre-sedation evaluation - Pre-sedation checklist Date of procedure: 06/05/17 Procedure: egd Recent Vitals: Last Vital Signs Temp 98.3 F 06/05/17 19:13 Pulse 61 06/05/17 19:34 Resp 16 06/05/17 19:34 BP 131/68 06/05/17 19:34 Pulse Ox 99 06/05/17 19:34 H&P (including ROS) documented in medical record: Yes Dietary Status: NPO after Midnight Dentition: dentures removed ASA Classification *see protocol: CLASS III-Severe systemic disease Plan of Care: Pt appropriate candidate for procedure/moderate/conscious sedation , Risks/benefits of procedure/sedation discussed w/ patient/family
[2017-06-05] MEDS ORDERED: *HR* FentaNYL (PF) 100 MCG/2 ML VIAL ONE (20:24)
[2017-06-05] MEDS: clonazePAM 0.5 MG TABLET PO SCH (21:56)
[2017-06-06] MEDS: *HR* HYDROcodone/Acet 5/325 mg TABLET PO PRN ×4 (01:52→15:02)
[2017-06-06] MEDS: Acetaminophen 325 MG TABLET PO PRN (09:26)
[2017-06-06] MEDS: *HR* Dabigatran 150 MG CAPSULE PO SCH ×2 (09:26→20:23)
[2017-06-06] MEDS: Aspirin Enteric Coated 81 MG Tablet PO SCH (09:27)
[2017-06-06] MEDS: Magnesium Oxide 400 MG TABLET PO SCH ×2 (09:27→20:22)
[2017-06-06] MEDS: Insulin LISPRO 300 UNITS/3 ML VIAL SQ SCH ×4 (09:40→20:23)
[2017-06-06] MEDS: Insulin DETEMIR 100 UNIT/ML X5UNITS SQ SCH ×2 (11:03→20:23)
--- NOTE | 2017-06-06 14:14 | Internal Med Progress Note ---
Date of Encounter: 06/06/17 Time of Encounter: 08:50 - Assessment and plan (1) Type 2 diabetes mellitus Current Visit: Yes Status: Chronic Assessment and plan: A1c 11.0 in January, 8.4% now. continue SSI, diabetic diet, and accuchecks achs. Qualifiers: Diabetes mellitus complication status: with neurologic complications Diabetes mellitus complication detail: with polyneuropathy Diabetes mellitus terminal operator insulin use: with terminal operator use Qualified Code(s): E11.42 - Type 2 diabetes mellitus with diabetic polyneuropathy; Z79.4 - [facility] (current) use of insulin (2) Paroxysmal atrial fibrillation Current Visit: Yes Status: Acute Assessment and plan: Pt NSR. Continue Pradaxa. Continue telemetry. Patient denies chest pain. (3) Essential hypertension Current Visit: Yes Status: Acute Assessment and plan: Blood pressures have been well controlled and normotensive. Continue home medications. (4) Acute gastroenteritis Current Visit: Yes Status: Acute Assessment and plan: Patient reports approximately 2 week to "several month" history of abdominal pain, nausea without vomiting and diarrhea with any solid food intake. CT scan abdomen and pelvis without contrast is unremarkable. Liver enzymes are within normal limits. Patient is very tender to palpation in epigastric area. Continue IV fluids and clear liquid diet. GI panel was canceled due to patient not having bowel movement or diarrhea. Will reorder. GI has been consulted, and appreciate their recommendations consultation. -Per GI note, patient had cholecystectomy in July,, ERCP with sphincterectomy in August,. - EGD 06/05, normal. Will proceed with MRCP tomorrow. Continue PPI Continue antiemetics Continue IV fluids Advance diet if patient tolerates. (5) DVT prophylaxis Current Visit: No Status: Acute Assessment and plan: Encourage early ambulation. PENNIE hose ordered. (6) Abdominal pain Current Visit: Yes Status: Acute Assessment and plan: Patient reports a lengthy history, approximately 2+ weeks, of upper abdominal pain, nausea, intolerance of solid foods. Amylase and lipase are within normal limits. Patient had EGD yesterday, esophagus was normal, there is an area of mildly erythematous mucosa without bleeding in the stomach. Biopsies were collected and pending . Duodenum was normal. GI recommended MRCP today. Since today is a holiday, we do not have MRI today. Test will be delayed until tomorrow. Will trial Bentyl by mouth today to see if patient receives any relief from pain. She was unable to advance her diet without increased abdominal pain and diarrhea. Continue clear liquid diet MRCP tomorrow Qualifiers: Abdominal location: upper abdomen, unspecified Qualified Code(s): R10.10 - Upper abdominal pain, unspecified - Time Spent With Patient less than 15 minutes - Subjective Interval history: Pt was seen and assessed at bedside at 0850 this am. Patient reports continued abdominal pain, remains tender to palpation. Patient had EGD yesterday and for some reason was given a regular tray. She has small amount of fluid from the drain began having diarrhea. She states this lasted "forever." She will maintain a clear liquid diet. Patient was to have an MRCP today per recommendation of GI after EGD yesterday. Since it is a holiday, we do not have MRI today, test will be delayed until tomorrow. Will trial Bentyl to see if she gets any relief. - Constitutional Vitals: Temp Pulse Resp BP Pulse Ox 98.1 F 58 16 119/57 96 06/06/17 11:20 06/06/17 11:20 06/06/17 11:20 06/06/17 11:20 06/06/17 11:20 General appearance: Present: cooperative, A&O X 3, pleasant, no acute distress, obese, answers questions appropriately - Head Head exam: Present: atraumatic, normal inspection, normocephalic - Eye Eye exam: Present: normal appearance, conjuntiva pink, sclera anicteric - Neck Neck exam general surgery: Present: normal inspection, supple, trachea midline. Absent: lymphadenopathy, tenderness - Respiratory Respiratory exam: Present: CTAB. Absent: accessory muscle use, chest wall tenderness, decreased breath sounds, rales, respiratory distress, rhonchi, wheezes - Cardiovascular Cardiovascular exam: Present: RRR, +S1, +S2. Absent: diastolic murmur, gallop, rubs, systolic murmur - GI/Abdominal GI/Abdominal exam: Present: distended, guarding, normal bowel sounds, soft, tenderness - Extremities Exam Extremities exam: Present: normal capillary refill, warm, radial pulses palpable and symmetrical. Absent: calf tenderness, cyanotic, pedal edema, tenderness - Neurological Exam Neurological exam: Present: alert, oriented X3, no focal deficits. Absent: facial droop, speech deficit - Skin Skin exam: Present: dry, intact, normal color, warm. Absent: rash Internal Medicine: Result - Labs CBC & Chem 7: 06/05/17 03:26 06/05/17 03:26 - ABG Interpretation ABG results: PT/INR, D-dimer PT 12.0 Seconds (9.4-12.1) 06/03/17 19:41 Consult Discharge Plan - Plan Referrals: Armin Posey MD [Partnered Physician] - 06/11/17 8:30 am Joanne Paez MD [Primary Care Provider] - 06/14/17 1:45 pm
[2017-06-06] MEDS: clonazePAM 0.5 MG TABLET PO SCH (20:22)
[2017-06-06] MEDS: traZODone 50 MG TABLET PO PRN (20:46)
[2017-06-07] MEDS: *HR* HYDROcodone/Acet 5/325 mg TABLET PO PRN ×4 (03:39→21:28)
[2017-06-07 04:47] LABS: Basophils % 0.3 %; Eosinophils # 0.1 K/mcL (0.0-0.6); Eosinophils % 2.2 %; Hematocrit 33.5 % (35.3-44.9); Hemoglobin 10.5 g/dL (11.5-15.4); Immature Granulocytes % 0.3 % (0-4); Lymphocytes # 1.5 K/mcL (0.6-4.6); Lymphocytes % 23.1 %; Mean Corpuscular HGB Conc 31.3 g/dL (31.6-35.5); Mean Corpuscular Hemoglobin 25.1 pg (28.0-33.3); Mean Corpuscular Volume 80.1 fL (83.0-100.0); Mean Platelet Volume 10.5 fL (9.4-12.4); Monocytes # 0.3 K/mcL (0.0-1.3); Monocytes % 4.6 %; Neutrophils # 4.4 K/mcL (1.6-8.9); Nucleated Red Blood Cells 0.3 /100 WBC (0); Platelet Count 268 K/mcL (140-400); Red Blood Count 4.18 M/mcL (3.82-4.97); Red Cell Distribution Width 14.6 % (11.5-14.5); Segmented Neutrophils % 69.5 %
[2017-06-07 05:00] LABS: BUN/Creatinine Ratio 6 (6-26); Calcium 8.8 mg/dL (8.6-10.8); Carbon Dioxide 24 mEq/L (19-29); Chloride 105 mEq/L (98-109); Glucose 331 mg/dL (70-99); Osmolality,Calculated 294 (280-300); Sodium 137 mEq/L (136-145); eGFR For African Americans > 60 (> 60); eGFR For Non-African Americans > 60 (> 60)
[2017-06-07 05:12] LABS: Blood Urea Nitrogen 4 mg/dL (7-20)
[2017-06-07 05:13] LABS: Potassium 3.6 mEq/L (3.5-4.5)
[2017-06-07] MEDS: Magnesium Oxide 400 MG TABLET PO SCH ×2 (09:49→21:30)
[2017-06-07] MEDS: Aspirin Enteric Coated 81 MG Tablet PO SCH (09:49)
[2017-06-07] MEDS: *HR* Dabigatran 150 MG CAPSULE PO SCH ×2 (09:49→21:28)
[2017-06-07] MEDS: Insulin DETEMIR 100 UNIT/ML X5UNITS SQ SCH ×2 (09:49→21:33)
[2017-06-07] MEDS: Insulin LISPRO 300 UNITS/3 ML VIAL SQ SCH ×4 (09:50→21:33)
--- NOTE | 2017-06-07 17:25 | Internal Med Progress Note ---
Date of Encounter: 06/07/17 Time of Encounter: 10:10 - Assessment and plan (1) Type 2 diabetes mellitus Current Visit: Yes Status: Chronic Assessment and plan: A1c 11.0 in January, 8.4% now. continue SSI, diabetic diet, and accuchecks achs. 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 Continue Pradaxa. Patient denies chest pain. (3) Essential hypertension Current Visit: Yes Status: Acute Assessment and plan: Blood pressures have been well controlled and within guidelines. Continue home medications. (4) Acute gastroenteritis Current Visit: Yes Status: Acute Assessment and plan: Patient reports approximately 2 week to "several month" history of abdominal pain, nausea without vomiting and diarrhea with any solid food intake. CT scan abdomen and pelvis without contrast is unremarkable. Liver enzymes are within normal limits. Patient is very tender to palpation in epigastric area and tender around sides and into back. GI panel was canceled due to patient not having bowel movement or diarrhea. Will reorder. GI has been consulted, and appreciate their recommendations consultation. -Per GI note, patient had cholecystectomy in July,, ERCP with sphincterectomy in August,. - EGD 06/05, normal. -MRCP negative for any acute Continue PPI Continue antiemetics Continue IV fluids Advance diet to full liquids Abdomen/Pelvis CT 06/03/17 19:52 IMPRESSION: Small amount of fluid within the cholecystectomy bed and trace pelvic ascites as on prior. Mild hepatosplenomegaly. Small left ovarian cyst. D/ / Liam Medina MD / Liam Medina MD Interpreting Provider: Liam Medina MD Abdomen MRI 06/07/17 07:59 IMPRESSION: 1. A 1.9 x 1.4 cm complex fluid collection within the gallbladder fossa favoring a postoperative hematoma. However there are 2 discrete hypointense foci along the anterior inferior aspect, one of which (anteriorly) corresponds to a surgical clip. The other is likely related to old blood products or possibly a tiny metallic fragment related to surgery, or less likely a residual/dropped gallstone cannot be entirely excluded. 2. Very mild biliary duct dilation without choledocholithiasis. 3. Mild splenomegaly. D/ / 06/07/2017 16:00:43 Latosha Santos MD / [facility] Interpreting Provider: Latosha Santos MD (5) DVT prophylaxis Current Visit: No Status: Acute Assessment and plan: Encourage early ambulation. PENNIE hose ordered. (6) Abdominal pain Current Visit: Yes Status: Acute Assessment and plan: Patient reports a lengthy history, approximately 2+ weeks, of upper abdominal pain, nausea, intolerance of solid foods. Amylase and lipase are within normal limits. Patient had EGD yesterday, esophagus was normal, there is an area of mildly erythematous mucosa without bleeding in the stomach. Biopsies were collected and pending . Duodenum was normal. MRCP negative for any acute process. Attempting to advance diet to full liquids. Pt already has an appointment with GI on 06/11. Keep appointment. Full liquid diet Qualifiers: Abdominal location: upper abdomen, unspecified Qualified Code(s): R10.10 - Upper abdominal pain, unspecified - Time Spent With Patient less than 15 minutes - Subjective Interval history: Pt was seen and assessed at bedside at 0850 this am. Patient reports continued abdominal pain, remains tender to palpation. REports that it feels like a band around her abdomen and back. She remains tender to palpation and reports difficulty with solids. Will advance diet to full liquids. Pt is agreeable to trying Flexeril for pain tonight and possibly discharging in the morning. - Constitutional Vitals: Temp Pulse Resp BP Pulse Ox 97.9 F 57 14 124/82 92 06/07/17 14:38 06/07/17 14:38 06/07/17 14:38 06/07/17 14:38 06/07/17 14:38 General appearance: Present: cooperative, A&O X 3, pleasant, no acute distress, obese, answers questions appropriately - Head Head exam: Present: atraumatic, normal inspection, normocephalic - Eye Eye exam: Present: normal appearance, conjuntiva pink, sclera anicteric - Neck Neck exam general surgery: Present: supple, trachea midline. Absent: lymphadenopathy, tenderness - Respiratory Respiratory exam: Present: CTAB. Absent: accessory muscle use, chest wall tenderness, rales, rhonchi, wheezes - Cardiovascular Cardiovascular exam: Present: RRR, +S1, +S2. Absent: diastolic murmur, gallop, rubs, systolic murmur - GI/Abdominal GI/Abdominal exam: Present: guarding, normal bowel sounds, soft. Absent: distended, hepatomegaly, tenderness - Extremities Exam Extremities exam: Present: warm, radial pulses palpable and symmetrical. Absent : calf tenderness, cyanotic, pedal edema - Neurological Exam Neurological exam: Present: CN II-XII intact, oriented X3, no focal deficits. Absent: facial droop, speech deficit - Skin Skin exam: Present: dry, intact, normal color, warm. Absent: rash Internal Medicine: Result - Labs CBC & Chem 7: 06/07/17 03:26 06/07/17 03:26 Labs: Short CBC 06/07/17 Range/Units 03:26 WBC 6.4 (4.3-11.1) K/mcL Hgb 10.5 L (11.5-15.4) g/dL Hct 33.5 L (35.3-44.9) % Plt Count 268 (140-400) K/mcL Neutrophils # 4.4 (1.6-8.9) K/mcL BMP 06/07/17 03:26 Sodium 137 Potassium 3.6 Chloride 105 Carbon Dioxide 24 BUN 4 L Creatinine 0.68 Glucose 331 H Calcium 8.8 - ABG Interpretation ABG results: PT/INR, D-dimer PT 12.0 Seconds (9.4-12.1) 06/03/17 19:41 - Impressions Impressions Abdomen MRI 06/07/17 07:59 IMPRESSION: 1. A 1.9 x 1.4 cm complex fluid collection within the gallbladder fossa favoring a postoperative hematoma. However there are 2 discrete hypointense foci along the anterior inferior aspect, one of which (anteriorly) corresponds to a surgical clip. The other is likely related to old blood products or possibly a tiny metallic fragment related to surgery, or less likely a residual/dropped gallstone cannot be entirely excluded. 2. Very mild biliary duct dilation without choledocholithiasis. 3. Mild splenomegaly. D/ / 06/07/2017 16:00:43 Latosha Santos MD / [facility] Interpreting Provider: Latosha Santos MD Consult Discharge Plan - Plan Referrals: Armin Posey MD [Partnered Physician] - 06/11/17 8:30 am Joanne Paez MD [Primary Care Provider] - 06/14/17 1:45 pm
[2017-06-07] MEDS: clonazePAM 0.5 MG TABLET PO SCH (21:31)
[2017-06-08] MEDS: *HR* HYDROcodone/Acet 5/325 mg TABLET PO PRN ×2 (01:22→06:16)
[2017-06-08] MEDS ORDERED: *HR* Morphine 2 MG/ML SYRINGE IVP ONE (02:33)
[2017-06-08] MEDS ORDERED: *HR* Morphine 2 MG/ML SYRINGE ONE (02:47)
[2017-06-08 07:15] VITALS: BP 127/76
--- NOTE | 2017-06-08 08:07 | Discharge Summary ---
Date of Encounter: 06/08/17 Time of Encounter: 07:55 - Discharge Diagnosis (1) Type 2 diabetes mellitus Priority: Primary Status: Chronic Comments: A1c improved significantly, 8.4% now. Continue home medication regimen, diabetic diet, and Accu-Chek regimen at home. Qualifiers: Diabetes mellitus complication status: with neurologic complications Diabetes mellitus complication detail: with polyneuropathy Diabetes mellitus halfway insulin use: with halfway use Qualified Code(s): E11.42 - Type 2 diabetes mellitus with diabetic polyneuropathy; Z79.4 - longterm (current) use of insulin (2) Paroxysmal atrial fibrillation Priority: Secondary Status: Acute Comments: Normal sinus rhythm. Continue Pradaxa. She denies chest pain, she has not had chest pain since admission. (3) Essential hypertension Priority: Secondary Status: Acute Comments: Blood pressures have been well controlled within guidelines during admission. Continue home medication and monitoring. Follow with primary care for monitoring and evaluation, and for any medication adjustments as necessary. (4) Acute gastroenteritis Priority: Secondary Status: Acute Comments: Patient reports approximately 2 week to "several month" history of abdominal pain, nausea without vomiting and diarrhea with any solid food intake. CT scan abdomen and pelvis without contrast is unremarkable. Liver enzymes are within normal limits. Patient is very tender to palpation in epigastric area and tender around sides and into back. GI panel was canceled due to patient not having bowel movement or diarrhea. Will reorder. GI has been consulted, and appreciate their recommendations consultation. -Per GI note, patient had cholecystectomy in July,, ERCP with sphincterectomy in August,. - EGD 06/05, normal. -MRCP negative for any acute Continue PPI after discharge Continue antiemetics after discharge Advance diet to full liquids, continue to advance as tolerated. Patient has follow-up appointment with Dr. Posey on 06/11/2017. I have encouraged her to keep that appointment. Patient reports that she did have some relief with Flexeril, indicating this may not all be GI in nature. I will give her enough for 3 days after discharge. Abdomen/Pelvis CT 06/03/17 19:52 IMPRESSION: Small amount of fluid within the cholecystectomy bed and trace pelvic ascites as on prior. Mild hepatosplenomegaly. Small left ovarian cyst. D/ / Liam Medina MD / Liam Medina MD Interpreting Provider: Liam Medina MD Abdomen MRI 06/07/17 07:59 IMPRESSION: 1. A 1.9 x 1.4 cm complex fluid collection within the gallbladder fossa favoring a postoperative hematoma. However there are 2 discrete hypointense foci along the anterior inferior aspect, one of which (anteriorly) corresponds to a surgical clip. The other is likely related to old blood products or possibly a tiny metallic fragment related to surgery, or less likely a residual/dropped gallstone cannot be entirely excluded. 2. Very mild biliary duct dilation without choledocholithiasis. 3. Mild splenomegaly. D/ / 06/07/2017 16:00:43 Latosha Santos MD / [facility] Interpreting Provider: Latosha Santos MD (5) DVT prophylaxis Priority: Secondary Status: Acute Comments: Patient has been ambulatory. PENNIE hose were ordered. (6) Abdominal pain Priority: Secondary Status: Acute Comments: Patient reports a lengthy history, approximately 2+ weeks, of upper abdominal pain, nausea, intolerance of solid foods. Amylase and lipase are within normal limits. Patient had EGD yesterday, esophagus was normal, there is an area of mildly erythematous mucosa without bleeding in the stomach. Biopsies were collected and pending . Duodenum was normal. MRCP negative for any acute process. Advance diet to clear liquids. Continue to advance as tolerated. Pt already has an appointment with GI on 06/11. Keep appointment. Qualifiers: Abdominal location: upper abdomen, unspecified Qualified Code(s): R10.10 - Upper abdominal pain, unspecified - Discharge Medications Prescriptions: Cyclobenzaprine [Flexeril] 10 mg PO BID PRN #6 tablet PRN Reason: Muscle Spasm Home Medications: Aspirin [Adult Low Dose Aspirin EC] 81 mg PO DAILY 10/26/15 [History] Etonogestrel [Nexplanon] 68 mg SQ AD 10/26/15 [History] metFORMIN [Glucophage] 1,000 mg PO BIDWM 10/26/15 [History] Albuterol Sulfate [Proair Respiclick] 2 puff IH Q4H PRN #1 02/08/17 [Rx] Lisinopril [Zestril] 5 mg PO DAILY #30 02/08/17 [Rx] Metoprolol [Lopressor] 25 mg PO BID 30 Days tablet 02/08/17 [Rx] clonazePAM [Klonopin] 0.5 mg PO HS 03/04/17 [History] Dabigatran Etexilate Mesylate [Pradaxa] 150 mg PO BID 05/12/17 [History] Flecainide 100 mg PO BID 05/12/17 [History] Omeprazole [PriLOSEC] 40 mg PO DAILY 05/12/17 [History] Atorvastatin Calcium [Lipitor] 20 mg PO HS 06/03/17 [History] Sertraline [Zoloft] 300 mg PO DAILY 06/03/17 [History] traZODone [TraZODone] 50 - 100 mg PO HS PRN 06/03/17 [History] Cyclobenzaprine [Flexeril] 10 mg PO BID PRN #6 tablet 06/08/17 [Rx] Allergies/Adverse Reactions: 3 Allergy/AdvReac Type Severity Reaction Status Date / Time No Known Allergies Allergy Verified 03/25/17 16:13 Procedures/tests Complete & Pending: Procedures Performed prior 72 hours Category Date Time Status MR abdomen wo con [MR] Routine MRI 06/07/17 07:59 Completed Date of admission: 06/03/17 22:51 Primary care physician: Joanne Paez Consults: 06/04/17 17:19 Consult to Gastroenterology [CONS] Routine Consulting Provider: [facility] [place] Reason for Consult: abdominal pain, nausea. Diarrhea with any solids. Extremely tender to palpaion in epigastric area. Recommendations, further testing? Call Completed: No Discharging clinician: Deysi Marcus Anticipated date of discharge: 06/08/17 - Patient Status Disposition: Home, Self-Care Functional capacity at discharge: independent ambulation Overall status at discharge: patient is progressing back to baseline - Discharge Instructions Follow Up With: Armin Posey MD [Partnered Physician] - 06/11/17 8:30 am Joanne Paez MD [Primary Care Provider] - 06/14/17 1:45 pm Additional Instructions: Keep your GI appointment on 06/11/2017. Follow up with your primary care provider in the next 7-10 days for a follow-up visit. You may return to work after you are cleared by her primary care provider. Resume your normal home medications. Advance her diet as tolerated. Resume your normal activities as tolerated I have given you a few Flexeril for home since she seemed to get some relief with them. They can make you drowsy. Please do not drive, operate machinery, or perform any tasks that require you to be alert when you are taking them. - Diet and Activity Activity: increase activity as tolerated Diet: advance to your usual diet Interval History: Please see assessment and plan for hospital course. Hospital course: Ms. Jacome is a 51 year old female - Time Spent with Patient Total time spent providing and/or coordinating discharge services: Less than 30 minutes - Constitutional Vitals: Temp Pulse Resp BP Pulse Ox 95.0 F L 70 20 127/76 95 06/08/17 07:10 06/08/17 07:10 06/08/17 07:10 06/08/17 07:10 06/08/17 07:10 General appearance: Present: cooperative, A&O X 3, pleasant, no acute distress, obese, answers questions appropriately - Head Head exam: Present: atraumatic, normocephalic - Eye Eye exam: Present: PERRL, conjuntiva pink, sclera anicteric Pupils: Present: PERRL - Neck Neck exam general surgery: Present: supple, trachea midline. Absent: lymphadenopathy - Respiratory Respiratory exam: Present: CTAB. Absent: accessory muscle use, rales, rhonchi, wheezes - Cardiovascular Cardiovascular exam: Present: RRR, +S1, +S2. Absent: diastolic murmur, gallop, rubs, systolic murmur - GI/Abdominal GI/Abdominal exam: Present: normal bowel sounds, soft, tenderness. Absent: distended, hernia, hepatomegaly - Extremities Exam Extremities exam: Present: warm, radial pulses palpable and symmetrical. Absent : calf tenderness, cyanotic, pedal edema - Neurological Exam Neurological exam: Present: CN II-XII intact, oriented X3, no focal deficits. Absent: pronater drift, facial droop, speech deficit - Skin Skin exam: Present: dry, intact
[2017-06-08] MEDS: *HR* Dabigatran 150 MG CAPSULE PO SCH (09:15)
[2017-06-08] MEDS: Aspirin Enteric Coated 81 MG Tablet PO SCH (09:15)
[2017-06-08] MEDS: Magnesium Oxide 400 MG TABLET PO SCH (09:16)
[2017-06-08] MEDS: Insulin LISPRO 300 UNITS/3 ML VIAL SQ SCH (09:17)
[2017-06-08] MEDS: Insulin DETEMIR 100 UNIT/ML X5UNITS SQ SCH (09:47)
== END 2017-06-08 09:15 | disposition home or self-care (01) ==
LOC: EMEROO 17:39 → 3BNU 17:39
PROVIDERS: ADMIT Internal Medicine; ATTEND Registered Nurse
PROC: ENDOEBX (2017-06-05 18:00)

== ENCOUNTER 2017-06-11 11:03 | Inpatient (IN) ==
[2017-06-11 11:58] LABS: Basophils % 0.5 %; Hematocrit 34.6 % (35.3-44.9); Hemoglobin 11.2 g/dL (11.5-15.4); Immature Granulocytes % 0.5 % (0-4); Lymphocytes # 0.6 K/mcL (0.6-4.6); Lymphocytes % 14.2 %; Mean Corpuscular HGB Conc 32.4 g/dL (31.6-35.5); Mean Corpuscular Hemoglobin 25.2 pg (28.0-33.3); Mean Corpuscular Volume 77.9 fL (83.0-100.0); Mean Platelet Volume 9.4 fL (9.4-12.4); Monocytes # 0.2 K/mcL (0.0-1.3); Monocytes % 4.7 %; Neutrophils # 3.2 K/mcL (1.6-8.9); Platelet Count 208 K/mcL (140-400); Red Blood Count 4.44 M/mcL (3.82-4.97); Red Cell Distribution Width 14.6 % (11.5-14.5); Segmented Neutrophils % 80.1 %
[2017-06-11 12:12] LABS: Alanine Aminotransferase 21 Units/L (0-55); Albumin 3.4 g/dL (3.5-5.0); Albumin/Globulin Ratio 0.9 (1.1-2.2); Alkaline Phosphatase 123 Units/L (38-126); Amylase 16 Units/L (25-125); Aspartate Amino Transferase 24 Units/L (5-34); BUN/Creatinine Ratio 13 (6-26); Bilirubin,Total 0.8 mg/dL (0.2-1.2); Blood Urea Nitrogen 9 mg/dL (7-20); Calcium 8.5 mg/dL (8.6-10.8); Carbon Dioxide 25 mEq/L (19-29); Chloride 100 mEq/L (98-109); Globulin 3.8 g/dL (2.4-3.5); Glucose 251 mg/dL (70-99); Lipase 12 Units/L (8-78); Osmolality,Calculated 283 (280-300); Potassium 3.5 mEq/L (3.5-4.5); Sodium 133 mEq/L (136-145); Total Protein 7.2 g/dL (6.0-8.3); eGFR For African Americans > 60 (> 60); eGFR For Non-African Americans > 60 (> 60)
[2017-06-11] MEDS ORDERED: 0.9 % Sodium Chloride 1,000 ML IVC ONE (12:45)
[2017-06-11] MEDS ORDERED: *HR* Morphine 2 MG/ML SYRINGE IVP ONE (12:45)
[2017-06-11] MEDS ORDERED: Ondansetron 4 MG/2 ML VIAL IVP ONE (12:45)
[2017-06-11 13:19] LABS: Bilirubin,Urine Negative (Negative); Blood,Urine Negative (Negative); Clarity,Urine Cloudy (Clear); Color,Urine Dark Yellow (Yellow); Glucose,Urine (UA) 500 mg/dL (Normal); Ketones,Urine Negative (Negative); Leukocyte Esterase,Urine Negative (Negative); Nitrite,Urine Negative (Negative); PH,Urine 6.5 pH Units (5.0-8.0); Protein,Urine Trace mg/dL (Neg-Trace); Specific Gravity,Urine 1.028 (1.010-1.025); Urobilinogen,Urine Normal (Normal)
[2017-06-11 13:22] LABS: Bacteria,Urine None Seen per hpf (None-Few); Hyaline Casts,Urine None Seen per lpf (None-Few); RBC,Urine 0-3 per hpf (0-3); Squamous Epithelial Cell,Urine Many per lpf (None-Few)
--- NOTE | 2017-06-11 13:37 | Emergency Department Note ---
Disposition Clinical Impression: Abdominal pain Qualifiers: Abdominal location: unspecified location Qualified Code(s): R10.9 - Unspecified abdominal pain Nausea & vomiting Qualifiers: Vomiting type: unspecified Vomiting Intractability: unspecified Qualified Code( s): R11.2 - Nausea with vomiting, unspecified Disposition: Admitted As Inpatient Condition: Good Referrals: Joanne Paez MD [Primary Care Provider] - Time of Disposition: 14:15 Abdominal Pain HPI - General Chief Complaint: ED Abdominal Pain Stated Complaint: ABD/Back pain Time Seen by Provider: 06/11/17 11:12 Source: patient Mode of arrival: ambulatory Limitations: no limitations Nursing Notes Reviewed: Yes Vital Signs Reviewed: Yes - History of Present Illness HPI Narrative: Patient presents to emergency room for evaluation of abdominal pain. She has had these symptoms on and off for several weeks. She was seen her or assistant today very concerned about the persistence of the symptoms as well as the multiple imaging studies ahead abnormalities. They recommend that she come into the emergency room for evaluation and admission for symptom treatment to control Pt Subjective Complaint: abdominal pain Onset (ago): week(s) Consistency: constant Location: epigastric Pain Severity: moderate Pain Scale: 10 Quality: cramping Radiation: none Migration to: no migration Improves with: nothing Context: history of similar episodes Associated symptoms: Reports: nausea, vomiting. Denies: diarrhea, fever, chills , constipation, dysuria, hematemesis, hematochezia Treatments prior to arrival: none - Related Data Home Medications Medication Instructions Recorded Confirmed Aspirin [Adult Low Dose Aspirin EC] 81 mg PO DAILY 10/26/15 06/03/17 Etonogestrel [Nexplanon] 68 mg SQ AD 10/26/15 06/03/17 metFORMIN [Glucophage] 1,000 mg PO BIDWM 10/26/15 06/03/17 clonazePAM [Klonopin] 0.5 mg PO HS 03/04/17 06/03/17 Dabigatran Etexilate Mesylate 150 mg PO BID 05/12/17 06/03/17 [Pradaxa] Flecainide 100 mg PO BID 05/12/17 06/03/17 Omeprazole [PriLOSEC] 40 mg PO DAILY 05/12/17 06/03/17 Atorvastatin Calcium [Lipitor] 20 mg PO HS 06/03/17 06/03/17 Sertraline [Zoloft] 300 mg PO DAILY 06/03/17 06/03/17 traZODone [TraZODone] 50 - 100 mg PO HS PRN 06/03/17 06/03/17 Previous Rx's Medication Instructions Recorded Albuterol Sulfate [Proair 2 puff IH Q4H PRN #1 02/08/17 Respiclick] Lisinopril [Zestril] 5 mg PO DAILY #30 02/08/17 Metoprolol [Lopressor] 25 mg PO BID 30 Days tablet 02/08/17 Cyclobenzaprine [Flexeril] 10 mg PO BID PRN #6 tablet 06/08/17 Allergies Allergy/AdvReac Type Severity Reaction Status Date / Time No Known Allergies Allergy Verified 06/11/17 11:24 All systems ED: reviewed and negative except as stated. Review of Systems: As Per HPI Constitutional: Denies: fever, chills, weakness, weight change Cardiovascular: Denies: chest pain, palpitations, dyspnea on exertion Respiratory: Denies: cough, dyspnea, wheezes Gastrointestinal: Reports: abdominal pain, nausea. 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 history Psychiatric history: Reports: no psych history - Social History Smoking status: Never smoker Alcohol use: Reports: none Drug use: Reports: none Physical Exam - General Limitations: no limitations General appearance: alert - Neck Neck exam: Present: normal inspection, full ROM, trachea midline - Chest Chest inspection: Present: normal inspection, symmetric chest wall rise - Respiratory Respiratory exam: Present: normal lung sounds bilaterally - Cardiovascular Cardiovascular exam: Present: regular rate, normal rhythm, normal heart sounds - Abdominal Exam Abdominal exam: Present: soft, tenderness, normal bowel sounds. Absent: Non- Tender, distention, guarding, rebound, rigidity, diminished bowel sounds, Velasquez 's sign, Rovsing's sign, tenderness at McBurney's Point - Extremities Exam Extremities exam: Present: normal inspection, full ROM, normal capillary refill. Absent: tenderness - Back Exam Back exam: Present: normal inspection, full ROM. Absent: tenderness - Neurological Exam Neurological exam: Present: alert, oriented X3, CN II-XII intact, normal gait - Skin Skin exam: Present: warm, dry, intact, normal color Course Course Narrative: Patient seen and examined the time of arrival. See history of present illness. 51-year-old female sent over from gastroenterology office today for evaluation of abdominal pain is persistent over the last several weeks. She has been seen and evaluated and treated here in the emergency room approximately 3 other times with multiple imaging studies of modalities resulted. Patient is a persistence of the right upper quadrant and epigastric discomfort over the last several weeks and was evaluated today and they were concerned recommended she come the emergency room for possible admission secondary to fluid accumulation of the right upper quadrant and gallbladder fossa. Laboratory workup appears to be stable at this time with chronic thrombocytopenia and no other acute findings that are abnormal or concerning at this point. Lipase is normal troponin is negative. Patient had coagulation studies completed secondary to history of CVA as well as atrial fibrillation. Patient will also EKG collected secondary to the epigastric discomfort that is noted at this time. Chest x-ray is unremarkable from yesterday as well as CT imaging is performed last night. Patient was discussed with the hospitalist for admission. Will be admitted for intractable pain and further evaluation with MRI and possible interventional radiology for evaluation of the fluid accumulation in the gallbladder fossa. No other visible concerns issues or physical exam findings noted during this treatment course. Hospitalist Dr. ashley and I reviewed the patient's presentation symptoms and in no other concerns or issues noted at this time. We will wait on the results of the correlation studies an EKG and then had the patient admitted for definitive management. - Reevaluation(s) Reevaluation #1: Coagulation studies as well as EKG otherwise unremarkable at this time. Patient will be admitted at this time. Time: 14:17 Vital Signs Temperature 99.6 F 06/11/17 11:24 Pulse Rate 80 06/11/17 11:24 Respiratory Rate 20 06/11/17 11:24 Blood Pressure 113/65 06/11/17 11:24 O2 Sat by Pulse Oximetry 99 06/11/17 11:24 Temperature 99.6 F 06/11/17 11:24 Pulse Rate 80 06/11/17 11:24 Respiratory Rate 20 06/11/17 11:24 Blood Pressure 113/65 06/11/17 11:24 O2 Sat by Pulse Oximetry 99 06/11/17 11:24 Oxygen Delivery Oxygen Delivery Room Air Abdominal Pain - MDM Narrative Medical decision making narrative: Intractable abdominal pain, right upper quadrant discomfort - Medical Records Medical records reviewed: Yes I reviewed the patient's medical records. - Lab Data Lab results reviewed: Yes I reviewed the patient's lab results. Result diagrams: 06/11/17 11:49 06/11/17 11:49 Lab Results 06/11/17 06/11/17 06/11/17 Range/Units 11:49 11:49 13:02 WBC 4.0 L (4.3-11.1) K/mcL RBC 4.44 (3.82-4.97) M/mcL Hgb 11.2 L (11.5-15.4) g/dL Hct 34.6 L (35.3-44.9) % MCV 77.9 L (83.0-100.0) fL MCH 25.2 L (28.0-33.3) pg MCHC 32.4 (31.6-35.5) g/dL RDW 14.6 H (11.5-14.5) % Plt Count 208 (140-400) K/mcL MPV 9.4 (9.4-12.4) fL Immature Gran % 0.5 (0-4) % Seg Neutrophils % 80.1 % Lymphocytes % 14.2 % Monocytes % 4.7 % Eosinophils % 0.0 % Basophils % 0.5 % Neutrophils # 3.2 (1.6-8.9) K/mcL Lymphocytes # 0.6 (0.6-4.6) K/mcL Monocytes # 0.2 (0.0-1.3) K/mcL Eosinophils # 0.0 (0.0-0.6) K/mcL Basophils # 0.0 (0.0-0.2) K/mcL Sodium 133 L (136-145) mEq/L Potassium 3.5 (3.5-4.5) mEq/L Chloride 100 (98-109) mEq/L Carbon Dioxide 25 (19-29) mEq/L BUN 9 (7-20) mg/dL Creatinine 0.71 (0.57-1.11) mg/dL Est GFR ( Amer) > 60 (> 60) Est GFR (Non-Af Amer) > 60 (> 60) BUN/Creatinine Ratio 13 (6-26) Glucose 251 H (70-99) mg/dL Calculated Osmolality 283 (280-300) Lactic Acid 1.1 (0.5-2.2) mmol/L Calcium 8.5 L (8.6-10.8) mg/dL Total Bilirubin 0.8 (0.2-1.2) mg/dL AST 24 (5-34) Units/L ALT 21 (0-55) Units/L Alkaline Phosphatase 123 (38-126) Units/L Serum Total Protein 7.2 (6.0-8.3) g/dL Albumin 3.4 L (3.5-5.0) g/dL Globulin 3.8 H (2.4-3.5) g/dL Albumin/Globulin Ratio 0.9 L (1.1-2.2) Amylase 16 L (25-125) Units/L Lipase 12 (8-78) Units/L Urine Color (Yellow) Urine Clarity (Clear) Urine pH (5.0-8.0) pH Units Ur Specific [place] (1.010-1.025) Urine Protein (Neg-Trace) mg/dL Urine Glucose (UA) (Normal) mg/dL Urine Ketones (Negative) mg/dL Urine Blood (Negative) Urine Nitrite (Negative) Urine Bilirubin (Negative) Urine Urobilinogen (Normal) mg/dL Ur Leukocyte Esterase (Negative) 06/11/17 Range/Units 13:10 WBC (4.3-11.1) K/mcL RBC (3.82-4.97) M/mcL Hgb (11.5-15.4) g/dL Hct (35.3-44.9) % MCV (83.0-100.0) fL MCH (28.0-33.3) pg MCHC (31.6-35.5) g/dL RDW (11.5-14.5) % Plt Count (140-400) K/mcL MPV (9.4-12.4) fL Immature Gran % (0-4) % Seg Neutrophils % % Lymphocytes % % Monocytes % % Eosinophils % % Basophils % % Neutrophils # (1.6-8.9) K/mcL Lymphocytes # (0.6-4.6) K/mcL Monocytes # (0.0-1.3) K/mcL Eosinophils # (0.0-0.6) K/mcL Basophils # (0.0-0.2) K/mcL Sodium (136-145) mEq/L Potassium (3.5-4.5) mEq/L Chloride (98-109) mEq/L Carbon Dioxide (19-29) mEq/L BUN (7-20) mg/dL Creatinine (0.57-1.11) mg/dL Est GFR ( Amer) (> 60) Est GFR (Non-Af Amer) (> 60) BUN/Creatinine Ratio (6-26) Glucose (70-99) mg/dL Calculated Osmolality (280-300) Lactic Acid (0.5-2.2) mmol/L Calcium (8.6-10.8) mg/dL Total Bilirubin (0.2-1.2) mg/dL AST (5-34) Units/L ALT (0-55) Units/L Alkaline Phosphatase (38-126) Units/L Serum Total Protein (6.0-8.3) g/dL Albumin (3.5-5.0) g/dL Globulin (2.4-3.5) g/dL Albumin/Globulin Ratio (1.1-2.2) Amylase (25-125) Units/L Lipase (8-78) Units/L Urine Color Dark Yellow (Yellow) Urine Clarity Cloudy A (Clear) Urine pH 6.5 (5.0-8.0) pH Units Ur Specific [place] 1.028 H (1.010-1.025) Urine Protein Trace (Neg-Trace) mg/dL Urine Glucose (UA) 500 H (Normal) mg/dL Urine Ketones Negative (Negative) mg/dL Urine Blood Negative (Negative) Urine Nitrite Negative (Negative) Urine Bilirubin Negative (Negative) Urine Urobilinogen Normal (Normal) mg/dL Ur Leukocyte Esterase Negative (Negative) - Radiology Data Radiology results reviewed: Yes I reviewed the patient's radiology results. Chest x-ray and CT imaging of the abdomen reviewed from less than 12 hours ago. See documentation by the radiologist. - EKG Data EKG attestation: Yes I reviewed and interpreted this EKG. EKG results narrative: EKG shows sinus rhythm. Ventricular rate of 72. [place] interval 173. QRS duration 110. QTC of 349. No acute signs of ST segment elevation, WPW, Brugada syndrome or interval abnormality at this time. [place] is normal.
[2017-06-11 14:02] LABS: INR 1.2; Prothrombin Time 13.3 Seconds (9.4-12.1)
--- NOTE | 2017-06-11 14:17 | Gastroenterology Consult Note ---
<Gustavo Mercer - Last Filed: 06/11/17 14:17> Date of Encounter: 06/11/17 Time of Encounter: 14:08 - Assessment and plan (1) Abnormal MRI of abdomen Current Visit: Yes Status: Acute Assessment and plan: Patient has right upper quadrant and left abdominal pain with palpation. Status post cholecystectomy in July 2016. Colonoscopy/EGD 08/2016 showed hyperplastic polyp, gastritis and mild chronic inflammation. ERCP with sphincterotomy on 05/31 showed dilated hepatic duct without stones. Recent MRI of abdomen showed collection of fluid in the gallbladder fossa. Patient reports fever 102 at home with chills. She reports nausea, dry heaves, and diarrhea with any oral intake. Plan: IR consulted for aspiration of fluid collection. - Time Spent With Patient Total time spent is greater than 50% in coordination of care (as documented) at patient's floor/unit and/or counseling patient: GI History of Present Illness - Data of Consult Consult date: 06/11/17 Requesting Physician: Evangelina Hazel CNP - Consult Narrative Reason for consult: abdominal pain History of present illness: Ms. Jacome is a 51 year old female presented with cc of abdominal pain from Dr. Posey's office. Patient states she has had epigastric abdominal pain for the last 3 weeks. The pain radiates to the back and is associated with nausea, dry heaves, diarrhea. Patient states with any type of food, she has diarrhea. She reports fever of 102 at home, chills. In Dr. Posey's Patient had RUQ pain on exam and concern for fluid collection which was seen on MRI abdomen 06/07/17. Recent surgery/imaging include: She had a lap james completed in July,. She had a colonoscopy and EGD and colonoscopy completed 08/[address] Mendoza revealing a hyperplastic polyp , gastritis and mild chronic inflammation. 05/31 Dr. Stevens completed an ERCP with sphincterotomy revealing a dilated hepatic duct but no stones. MR abdomen on : A 1.9 x 1.4 cm complex fluid collection within the gallbladder fossa favoring a postoperative hematoma. A recent CT 06/11/17 revealed an ovarian cyst. Past Med Surg Social Fam HX - Past Medical History Medical history: atrial fibrillation, COPD, CVA, diabetes, hyperlipidemia, hypertension, myocardial infarction, TIA Psychiatric history: no psych history - Past Surgical History Surgical History: , cholecystectomy - Social History Smoking Status: Never smoker Smokeless Tobacco Status: No Alcohol use: none Drug use: none - Family History Mother Living Status: Hx Family Cardiac Disorders: Yes Hx Family Respiratory Disorders: Yes (copd) Hx Family Cancer: Yes (lung cancer) Hx Family Endocrine Disorder: Yes (DM type II) Father Adopted: No Family Member Ethnicity: Non- Living Status: Hx Family Cardiac Disorders: Yes Hx Family Respiratory Disorders: Yes Hx Family Cancer: Yes (LUNG) Hx Family GI Disorders: No Hx Family Endocrine Disorder: Yes (DM) Hx Family Neuromuscular Disorders: No Hx Family Neurologic Disorders: No Hx Family HEENT Disorders: No Hx Family Autoimmune Disorders: No Review of Systems: Constitutional: Reports fevers, chills HEENT: Denies headache, vision changes, neck pain, sore throat, rhinorrhea Heart: Denies chest pain palpitations Lungs: Denies shortness of breath cough Abdomen: Abdominal pain, nausea, diarrhea, diabetes. Denies hematochezia, hematemesis Back: Denies back pain Kidney: Denies dysuria, hematuria Skin: warm and dry Extremities: Denies swelling, pain Neuro: Denies numbness, and tingling - Constitutional Vitals: Temp Pulse Resp BP Pulse Ox 99.6 F 80 20 113/65 99 06/11/17 11:24 06/11/17 11:24 06/11/17 11:24 06/11/17 11:24 06/11/17 11:24 - Other Additional findings: General: Moderate distress HEENT: Head atraumatic, normocephalic, EOMI, PERRL, neck nontender to palpation , dry mucous membranes Heart: Regular rate and rhythm with no murmur Lungs: Clear to auscultation bilaterally Abdomen: Soft, positive bowel sounds, tender to palpation in right upper quadrant and left upper quadrant. Negative peritoneal signs. Skin: warm and dry Extremities: Absent pedal edema, Neuro: Alert oriented 3 Vascular: Pedal and radial pulses 2 out of 4 Results - Labs CBC & Chem 7: 06/11/17 11:49 06/11/17 11:49 Labs: Last Result Calcium 8.5 mg/dL (8.6-10.8) L 06/11/17 11:49 Entire Visit Hgb 11.2 g/dL (11.5-15.4) L 06/11/17 11:49 Hct 34.6 % (35.3-44.9) L 06/11/17 11:49 PT 13.3 Seconds (9.4-12.1) H 06/11/17 11:50 Total Bilirubin 0.8 mg/dL (0.2-1.2) 06/11/17 11:49 AST 24 Units/L (5-34) 06/11/17 11:49 ALT 21 Units/L (0-55) 06/11/17 11:49 Amylase 16 Units/L (25-125) L 06/11/17 11:49 Lipase 12 Units/L (8-78) 06/11/17 11:49 - ABG ABG results: PT/INR, D-dimer PT 13.3 Seconds (9.4-12.1) H 06/11/17 11:50 Consult Discharge Plan - Plan Referrals: Joanne Paez MD [Primary Care Provider] - <Armin Posey - Last Filed: 06/19/17 09:30> Date of Encounter: 06/11/17 - Time Spent With Patient Total time spent is greater than 50% in coordination of care (as documented) at patient's floor/unit and/or counseling patient: GI History of Present Illness - Data of Consult Requesting Physician: Femi Gudino MD - Consult Narrative History of present illness: Ms. Jacome is a 51 year old female - Constitutional Vitals: Temp Pulse Resp BP Pulse Ox 98.0 F 69 18 160/88 94 06/19/17 07:04 06/19/17 07:04 06/19/17 07:04 06/19/17 07:04 06/19/17 07:04 Results - Labs CBC & Chem 7: 06/18/17 05:55 06/18/17 05:55 Labs: Last Result Calcium 8.5 mg/dL (8.6-10.8) L 06/18/17 05:55 Troponin I 0.00 ng/mL (0-0.03) 06/12/17 21:35 Entire Visit Hgb 10.1 g/dL (11.5-15.4) L 06/18/17 05:55 Hct 32.3 % (35.3-44.9) L 06/18/17 05:55 PT 13.3 Seconds (9.4-12.1) H 06/11/17 11:50 Total Bilirubin 0.6 mg/dL (0.2-1.2) 06/12/17 03:51 AST 34 Units/L (5-34) 06/12/17 03:51 ALT 22 Units/L (0-55) 06/12/17 03:51 Amylase 16 Units/L (25-125) L 06/11/17 11:49 Lipase 12 Units/L (8-78) 06/11/17 11:49 - ABG ABG results: PT/INR, D-dimer PT 13.3 Seconds (9.4-12.1) H 06/11/17 11:50 - Attending Attestation Patient admitted due to failure of outpatient management - patient will need Indium scan and check stool studies. Also MRCP showed collection in gallbladder fossa 12 months after james. IR needs to see if, they can get to it. I examined this patient and my medical decision-making was reviewed with the Resident Physician. I agree with the documented findings, disposition and treatment plan as described except to the extent set forth below.
[2017-06-11] MEDS ORDERED: *HR* HYDROmorphone (PF) 1 MG/ML SYRINGE IVP ONE (15:07)
[2017-06-11] MEDS ORDERED: (Albuterol Sulfate [Proair Respiclick] 2 PUFF) IH PRN (17:12)
[2017-06-11] MEDS ORDERED: *HR* Dextrose 50 % in Water (Syg) 50 ML SYRINGE IVP PRN (17:16)
[2017-06-11] MEDS ORDERED: Dextrose Gel 15 GM PO PRN ×2 (17:16)
[2017-06-11] MEDS ORDERED: D5% in Water 1,000 ML IVC PRN (17:16)
[2017-06-11] MEDS ORDERED: Naloxone 0.4 MG/ML INJ IVP PRN (17:17)
--- NOTE | 2017-06-11 17:36 | Internal Med History&Physical ---
<Hemant Cuellar - Last Filed: 06/11/17 17:31> Date of Encounter: 06/11/17 Time of Encounter: 17:31 Assessment and Plan (1) Intractable abdominal pain Current visit: Yes Status: Acute She continues to report her RUQ and epigastric pain with radiation to the back as well as left lower quadrant pain. Upon examination she has a positive Rovsings sign, Margie sign and pain at McBurney's point, but she does not appear to have an acute abdomen. She underwent a cholecystectomy in July 2016, she reports having pain, n/v/d since. She does not appear toxic and is hemodynamically stable. MRI on 06/07/17 reveals a small collection of fluid in the gallbladder fossa that will likely need drainage in IR. Consult GI- Dr. Mercer notes that the patient will go to IR for aspiration of fluid collection Clears diet now, NPO after midnight; hold this evenings dose of pradaxa-restart pradaxa tomorrow Morphine for pain Zofran for N/V CBC, CMP in the morning (2) Abnormal MRI of abdomen Current visit: Yes Status: Acute MRI of abdomen on 06/07/17 indicates she has a small collection of fluid in the gallbladder fossa will likely need aspiration via IR. See plan above (3) Diabetes mellitus Current visit: Yes Status: Chronic History of type 2 diabetes. Taking oral hypoglycemic agents at home. Stop oral hypoglycemic agents while inpatient and start LSSIC with AC/HS Accu-Cheks. Qualifiers: Diabetes mellitus type: type 2 Diabetes mellitus complication status: without complication Diabetes mellitus intermediate insulin use: with intermediate use Qualified Code(s): E11.9 - Type 2 diabetes mellitus without complications ; Z79.4 - residential (current) use of insulin; Z79.4 - terminologist (current) use of insulin; Z79.4 - terminologist (current) use of insulin; Z79.4 - residential ( current) use of insulin (4) Nausea & vomiting Current visit: Yes Status: Acute Continues to endorse nausea however has not vomited today. He was given Zofran in the emergency department and she reports that it helped with her nausea. Continue Zofran IVP every 8 hours when necessary Qualifiers: Vomiting type: unspecified Vomiting Intractability: unspecified Qualified Code(s): R11.2 - Nausea with vomiting, unspecified (5) Paroxysmal atrial fibrillation Current visit: Yes Status: Acute History of PAF, patient is on flecainide therapy, EKG shows normal sinus rhythm. Continue flecainide at home dose. Continuous telemetry (6) Essential hypertension Current visit: Yes Status: Acute History of HTN, BP currently stable. Continue SIRISHA inhibitor and beta jose armando, (7) DVT prophylaxis Current visit: Yes Status: Acute The patient is on Pradaxa for atrial fibrillation and is therapeutically anticoagulated already, at EPCD's to bilateral legs while in bed Internal Medicine - H&P: HPI Chief complaint: Intractable abdominal pain Admitted From: Home Plans for Post Hospital Care: Home History of present illness: Ms. Jacome is a 51 year old female with a PMH of a cholecystectomy in July 2016, A. fib, COPD, CVA, DM, HLD, HTN, TIA, and [place]. She presents to [facility] today with a complaint of abdominal pain. She reports abdominal pain has been ongoing since July 2016 following a cholecystectomy. She describes the abdominal pain as being located in the right upper quadrant and epigastrium, the pain is described as a sharp-type intensity with radiation to the back with a 9/10 intensity. She reports that she has had an 18 pound weight loss since July, she has not been able to eat due to nausea and diarrhea after eating. She states that over the last several weeks the pain has intensified. She has had multiple images completed recently with no clear etiology for her abdominal pain with the exception of some fluid in the gallbladder fossa. She admits to fever, chills, fatigue, and night sweats. She denies any chest pain, vomiting, shortness of breath, palpitations, hematemesis. Due to ongoing symptoms she is being admitted for further evaluation and consultation with gastroenterology. Past Med Surg Social Fam HX - Past Medical History Medical history: atrial fibrillation, COPD, CVA, diabetes, hyperlipidemia, hypertension, myocardial infarction, TIA Psychiatric history: no psych history - Past Surgical History Surgical History: , cholecystectomy - Social History Smoking Status: Never smoker Smokeless Tobacco Status: No Alcohol use: none Drug use: none - Family History Mother Living Status: Hx Family Cardiac Disorders: Yes Hx Family Respiratory Disorders: Yes (copd) Hx Family Cancer: Yes (lung cancer) Hx Family Endocrine Disorder: Yes (DM type II) Father Adopted: No Family Member Ethnicity: Non- Living Status: Hx Family Cardiac Disorders: Yes Hx Family Respiratory Disorders: Yes Hx Family Cancer: Yes (LUNG) Hx Family GI Disorders: No Hx Family Endocrine Disorder: Yes (DM) Hx Family Neuromuscular Disorders: No Hx Family Neurologic Disorders: No Hx Family HEENT Disorders: No Hx Family Autoimmune Disorders: No Internal Medicine - H&P: Meds Aspirin [Adult Low Dose Aspirin EC] 81 mg PO DAILY 10/26/15 [History] Etonogestrel [Nexplanon] 68 mg SQ AD 10/26/15 [History] metFORMIN [Glucophage] 1,000 mg PO BIDWM 10/26/15 [History] Albuterol Sulfate [Proair Respiclick] 2 puff IH Q4H PRN #1 02/08/17 [Rx] Lisinopril [Zestril] 5 mg PO DAILY #30 02/08/17 [Rx] Metoprolol [Lopressor] 25 mg PO BID 30 Days tablet 02/08/17 [Rx] clonazePAM [Klonopin] 0.5 mg PO HS 03/04/17 [History] Dabigatran Etexilate Mesylate [Pradaxa] 150 mg PO BID 05/12/17 [History] Flecainide 100 mg PO BID 05/12/17 [History] Omeprazole [PriLOSEC] 40 mg PO DAILY 05/12/17 [History] Atorvastatin Calcium [Lipitor] 20 mg PO HS 06/03/17 [History] Sertraline [Zoloft] 300 mg PO DAILY 06/03/17 [History] traZODone [TraZODone] 50 - 100 mg PO HS PRN 06/03/17 [History] Cyclobenzaprine [Flexeril] 10 mg PO BID PRN #6 tablet 06/08/17 [Rx] 3 Allergy/AdvReac Type Severity Reaction Status Date / Time No Known Allergies Allergy Verified 06/11/17 11:24 All Systems PM: A 10-system review of systems was performed and is negative for pertinent findings except as documented above in the HPI. - Constitutional Constitutional: chills, fatigue, fever(s) (103 on 06/10/17 in the ED), weakness , weight loss, no lethargy - Cardiovascular Cardiovascular ROS IM: no chest pain, no dyspnea, no dyspnea on exertion, no edema, no lightheadedness, no orthopnea, no palpitations - Respiratory Respiratory: no cough, no dyspnea, no wheezing, no excessive phlegm production - Gastrointestinal Gastrointestinal: abdominal pain, diarrhea (After meals; has noticed an increase surgery in July 2016), early satiety, hematochezia, loose stools, nausea, vomiting, no belching, no bloating, no change in bowel habits, no change in stool character, no coffee ground emesis, no constipation, no cramping , no dyspepsia, no dysphagia, no excessive flatus, no fecal incontinence, no heartburn, no hematemesis, no melena - Genitourinary Genitourinary: no change in urinary stream, no dysuria, no flank pain, no hematuria - Musculoskeletal Musculoskeletal ROS IM: no numbness, no tingling - Integumentary Integumentary IM: no rash, no unusual bruising - Constitutional Vitals: Temp Pulse Resp BP Pulse Ox 99.0 F 79 18 104/55 95 06/11/17 17:17 06/11/17 17:17 06/11/17 17:17 06/11/17 17:17 06/11/17 17:17 General appearance: Present: mild distress, A&O X 3, answers questions appropriately - Head Head exam: Present: atraumatic, normocephalic - Eye Pupils: Present: PERRL - Respiratory Respiratory exam: Present: CTAB. Absent: accessory muscle use, rales, rhonchi, wheezes - Cardiovascular Cardiovascular exam: Present: RRR, +S1, +S2. Absent: diastolic murmur, gallop, rubs, systolic murmur - GI/Abdominal GI/Abdominal exam: Present: normal bowel sounds, soft, tenderness (Diffuse but noted more in the epigastrium, right upper quadrant and left lower quadrant). Absent: guarding, hepatomegaly, mass, splenomegaly - Expanded GI/Abdominal Exam GI/Abdominal exam expanded: Present: Velasuqez's sign, Rovsing's sign. Absent: ascites - Extremities Exam Extremities exam: Present: warm, radial pulses palpable and symmetrical. Absent : calf tenderness, cyanotic, pedal edema - Neurological Exam Neurological exam: Present: alert, oriented X3 - Skin Skin exam: Present: dry, intact Internal Med - H&P Results - Labs CBC & Chem 7: 06/11/17 11:49 06/11/17 11:49 - Impressions MRI of abdomen A 1.9 x 1.4 cm complex fluid collection within the gallbladder fossa favoring a postoperative hematoma. However there are 2 discrete hypointense foci along the anterior inferior aspect, one of which (anteriorly) corresponds to a surgical clip. The other is likely related to old blood products or possibly a tiny metallic fragment related to surgery, or less likely a residual/dropped gallstone cannot be entirely excluded. 2. Very mild biliary duct dilation without choledocholithiasis. 3. Mild splenomegaly. - Diagnostic Studies CT scan - abdomen Status: image reviewed by me Additional comments: No acute process identified. 2. Splenomegaly again seen. 3. Enlarging left ovarian cyst measuring 4.2 cm. Ultrasound is recommended for further evaluation. Chest x-ray Status: image reviewed by me Additional comments: No acute pulmonary process <Pablo Garcia P - Last Filed: 06/12/17 19:41> Date of Encounter: 06/12/17 Internal Medicine - H&P: HPI History of present illness: Ms. Jacome is a 51 year old female All Systems PM: A 10-system review of systems was performed and is negative for pertinent findings except as documented above in the HPI. - Constitutional Vitals: Temp Pulse Resp BP Pulse Ox 97.7 F 67 16 105/72 98 06/12/17 18:40 06/12/17 18:40 06/12/17 18:40 06/12/17 18:40 06/12/17 18:40 Internal Med - H&P Results - Labs CBC & Chem 7: 06/12/17 03:51 06/12/17 03:51 Labs: Short CBC 06/12/17 Range/Units 03:51 WBC 2.7 L (4.3-11.1) K/mcL Hgb 10.1 L (11.5-15.4) g/dL Hct 31.7 L (35.3-44.9) % Plt Count 171 (140-400) K/mcL Neutrophils # 1.3 L (1.6-8.9) K/mcL BMP 06/12/17 03:51 Sodium 135 L Potassium 2.9 L Chloride 105 Carbon Dioxide 21 BUN 6 L Creatinine 0.69 Glucose 191 H Calcium 7.5 L Cardiac Enzymes 06/12/17 06/12/17 Range/Units 11:04 16:03 Troponin I 0.00 0.00 (0-0.03) ng/mL Liver Function 06/12/17 Range/Units 03:51 Total Bilirubin 0.6 (0.2-1.2) mg/dL AST 34 (5-34) Units/L ALT 22 (0-55) Units/L Alkaline Phosphatase 107 (38-126) Units/L Albumin 2.9 L (3.5-5.0) g/dL - Attending Attestation I examined this patient and my medical decision-making was reviewed with the Resident Physician/DATA REPORTING ANALYST. I agree with the documented findings, disposition and treatment plan as described except to the extent set forth below. Case seen and examined. Chart reviewed. Management as per gastroenterology.
[2017-06-11] MEDS: *HR* Morphine 2 MG/ML SYRINGE IVP PRN (18:57)
[2017-06-11] MEDS: 0.9 % Sodium Chloride 1,000 ML IVC SCH (18:58)
[2017-06-11] MEDS: traZODone 50 MG TABLET PO PRN (21:54)
[2017-06-11] MEDS: Insulin LISPRO 300 UNITS/3 ML VIAL SQ SCH (21:55)
[2017-06-11] MEDS: clonazePAM 0.5 MG TABLET PO SCH (21:55)
[2017-06-11] MEDS ORDERED: Acetaminophen 325 MG TABLET PO PRN (22:31)
[2017-06-12] MEDS ORDERED: Piperacillin/Tazobactam 3.375 GM/200 ML BAG IVPB SCH
[2017-06-12] MEDS: MetroNIDAZOLE 500 MG/100 ML 500 MG/100 ML BAG IVPB SCH ×4 (00:41→23:36)
[2017-06-12] MEDS: Piperacillin/Tazobactam 3.375 GM/200 ML BAG IVPB SCH ×2 (00:41→08:51)
[2017-06-12] MEDS: *HR* Morphine 2 MG/ML SYRINGE IVP PRN ×5 (00:50→20:39)
[2017-06-12 04:50] LABS: Basophils % 0.7 %; Eosinophils % 1.1 %; Hematocrit 31.7 % (35.3-44.9); Hemoglobin 10.1 g/dL (11.5-15.4); Immature Granulocytes % 0.4 % (0-4); Lymphocytes # 1.2 K/mcL (0.6-4.6); Lymphocytes % 42.5 %; Mean Corpuscular HGB Conc 31.9 g/dL (31.6-35.5); Mean Corpuscular Hemoglobin 24.9 pg (28.0-33.3); Mean Corpuscular Volume 78.1 fL (83.0-100.0); Mean Platelet Volume 10.3 fL (9.4-12.4); Monocytes # 0.2 K/mcL (0.0-1.3); Monocytes % 6.2 %; Neutrophils # 1.3 K/mcL (1.6-8.9); Platelet Count 171 K/mcL (140-400); Red Blood Count 4.06 M/mcL (3.82-4.97); Red Cell Distribution Width 14.6 % (11.5-14.5); Segmented Neutrophils % 49.1 %
[2017-06-12 04:57] LABS: Alanine Aminotransferase 22 Units/L (0-55); Albumin 2.9 g/dL (3.5-5.0); Albumin/Globulin Ratio 0.9 (1.1-2.2); Alkaline Phosphatase 107 Units/L (38-126); Aspartate Amino Transferase 34 Units/L (5-34); BUN/Creatinine Ratio 9 (6-26); Bilirubin,Total 0.6 mg/dL (0.2-1.2); Blood Urea Nitrogen 6 mg/dL (7-20); Calcium 7.5 mg/dL (8.6-10.8); Carbon Dioxide 21 mEq/L (19-29); Chloride 105 mEq/L (98-109); Globulin 3.4 g/dL (2.4-3.5); Glucose 191 mg/dL (70-99); Osmolality,Calculated 283 (280-300); Potassium 2.9 mEq/L (3.5-4.5); Sodium 135 mEq/L (136-145); Total Protein 6.3 g/dL (6.0-8.3); eGFR For African Americans > 60 (> 60); eGFR For Non-African Americans > 60 (> 60)
[2017-06-12] MEDS: 0.9 % Sodium Chloride 1,000 ML IVC SCH ×6 (07:56→22:50)
[2017-06-12] MEDS: Insulin LISPRO 300 UNITS/3 ML VIAL SQ SCH ×4 (08:00→17:22)
[2017-06-12] MEDS: Aspirin Enteric Coated 81 MG Tablet PO SCH (08:00)
[2017-06-12] MEDS ORDERED: Potassium Chloride 40 MEQ, Lidocaine 1% 2 ML in D5% in Water 500 ML IVPB ONE (09:35)
--- NOTE | 2017-06-12 09:51 | Internal Med Progress Note ---
<Dominic Mehta - Last Filed: 06/12/17 14:08> Date of Encounter: 06/12/17 Time of Encounter: 09:49 - Assessment and plan (1) Sepsis Current Visit: Yes Status: Acute Assessment and plan: WBC 2.7, fever. source of infection unclear, but llikely abdominal source BC x2 negative Plan: changed zosyn to ceftriaxone, continue flagyl. Qualifiers: Sepsis type: sepsis due to unspecified organism Qualified Code(s): A41.9 - Sepsis, unspecified organism (2) Intractable abdominal pain Current Visit: Yes Status: Acute Assessment and plan: diffuse abdominal pain, worse in LUQ and epigastric area. had cholecystectomy in July of 2016, reports having nausea, vomiting, and diarrhea ever since. Consulted IR, they stated they will not collecting any fluid since there was no fluid identified on most recent CT scan. Plan: await GI recs. stool panel pending (3) Abnormal MRI of abdomen Current Visit: Yes Status: Acute Assessment and plan: showed Abdomen MRI from 06/07 showed complex fluid collection within the gallbladder fossa that is postop hematoma, mild biliary duct dilation, and splenomegaly. (4) Chest pain Current Visit: No Status: Acute Assessment and plan: substernal chest pressure/tightness x3 days. Plan: repeat EKG, tropes x3 ordered. Qualifiers: Chest pain type: other chest pain Qualified Code(s): R07.89 - Other chest pain; R07.8 - Other chest pain (5) Diabetes mellitus Current Visit: Yes Status: Chronic Assessment and plan: hold oral meds Low dose sliding scale insulin. Qualifiers: Diabetes mellitus type: type 2 Diabetes mellitus complication status: without complication Diabetes mellitus business specialist insulin use: with business specialist use Qualified Code(s): E11.9 - Type 2 diabetes mellitus without complications ; Z79.4 - cpr ambulance driver (current) use of insulin; Z79.4 - cpr ambulance driver (current) use of insulin; Z79.4 - cpr ambulance driver (current) use of insulin; Z79.4 - senior living ( current) use of insulin (6) Paroxysmal atrial fibrillation Current Visit: Yes Status: Acute Assessment and plan: hold pradaxa for now. EPCDs (7) Essential hypertension Current Visit: Yes Status: Acute Assessment and plan: continue home meds. (8) DVT prophylaxis Current Visit: Yes Status: Acute Assessment and plan: currently on EPCDs. Awaiting GI recs. if no procedure planned, will re start pradaxa for paroxysmal Afib - Subjective Interval history: 51F evaluated at bedside. patient admits to nausea, diarrhea a few days ago, and fever and chills. she also reports some chest tightness/heaviness. she states that she has been having constant nausea with abdominal pain since her gallbladder surgery about a year ago. she denies any further problems today. - Constitutional Vitals: Temp Pulse Resp BP Pulse Ox 98 F 61 16 119/78 97 06/12/17 06:56 06/12/17 07:55 06/12/17 06:56 06/12/17 06:56 06/12/17 06:56 General appearance: Present: mild distress, A&O X 3, no acute distress, answers questions appropriately - Head Head exam: Present: atraumatic, normocephalic - Respiratory Respiratory exam: Present: CTAB - Cardiovascular Cardiovascular exam: Present: RRR, +S1, +S2 - GI/Abdominal Additional comments: distended, soft. diffuse tenderness to mild palpation, worse in right upper quadrant and epigastric area, positive bowel sounds. - Extremities Exam Extremities exam: Absent: cyanotic, pedal edema - Neurological Exam Neurological exam: Present: alert, oriented X3 - Psychiatric Psychiatric exam: Present: anxious Internal Medicine: Result - Labs CBC & Chem 7: 06/12/17 03:51 06/12/17 03:51 Labs: Short CBC 06/12/17 Range/Units 03:51 WBC 2.7 L (4.3-11.1) K/mcL Hgb 10.1 L (11.5-15.4) g/dL Hct 31.7 L (35.3-44.9) % Plt Count 171 (140-400) K/mcL Neutrophils # 1.3 L (1.6-8.9) K/mcL BMP 06/12/17 03:51 Sodium 135 L Potassium 2.9 L Chloride 105 Carbon Dioxide 21 BUN 6 L Creatinine 0.69 Glucose 191 H Calcium 7.5 L Liver Function 06/12/17 Range/Units 03:51 Total Bilirubin 0.6 (0.2-1.2) mg/dL AST 34 (5-34) Units/L ALT 22 (0-55) Units/L Alkaline Phosphatase 107 (38-126) Units/L Albumin 2.9 L (3.5-5.0) g/dL - ABG Interpretation ABG results: PT/INR, D-dimer PT 13.3 Seconds (9.4-12.1) H 06/11/17 11:50 Consult Discharge Plan - Plan Referrals: Joanne Paez MD [Primary Care Provider] - <ShashankOhRegan H - Last Filed: 06/12/17 17:59> Date of Encounter: 06/12/17 - Constitutional Vitals: Temp Pulse Resp BP Pulse Ox 98.3 F 60 16 110/69 98 06/12/17 15:19 06/12/17 15:19 06/12/17 15:19 06/12/17 15:19 06/12/17 15:19 Internal Medicine: Result - Labs CBC & Chem 7: 06/12/17 03:51 06/12/17 03:51 Labs: Short CBC 06/12/17 Range/Units 03:51 WBC 2.7 L (4.3-11.1) K/mcL Hgb 10.1 L (11.5-15.4) g/dL Hct 31.7 L (35.3-44.9) % Plt Count 171 (140-400) K/mcL Neutrophils # 1.3 L (1.6-8.9) K/mcL BMP 06/12/17 03:51 Sodium 135 L Potassium 2.9 L Chloride 105 Carbon Dioxide 21 BUN 6 L Creatinine 0.69 Glucose 191 H Calcium 7.5 L Cardiac Enzymes 06/12/17 06/12/17 Range/Units 11:04 16:03 Troponin I 0.00 0.00 (0-0.03) ng/mL Liver Function 06/12/17 Range/Units 03:51 Total Bilirubin 0.6 (0.2-1.2) mg/dL AST 34 (5-34) Units/L ALT 22 (0-55) Units/L Alkaline Phosphatase 107 (38-126) Units/L Albumin 2.9 L (3.5-5.0) g/dL - ABG Interpretation ABG results: PT/INR, D-dimer PT 13.3 Seconds (9.4-12.1) H 06/11/17 11:50 - Attending Attestation sepsis from possible intra-abdominal collection/abscess WBC scan pending continue Valeria and Romelia I examined this patient and my medical decision-making was reviewed with the Resident Physician. I agree with the documented findings, disposition and treatment plan as described except to the extent set forth below.
[2017-06-12] MEDS: cefTRIAXone 1,000 MG in Water for inj. (sterile) 10 ML IVP SCH (10:31)
[2017-06-12] MEDS ORDERED: Potassium Chloride 20 MEQ, Lidocaine 1% 2 ML in D5% in Water 250 ML IVPB ONE (18:00)
[2017-06-12] MEDS: traZODone 50 MG TABLET PO PRN (20:38)
[2017-06-12] MEDS: *HR* Dabigatran 150 MG CAPSULE PO SCH (20:38)
[2017-06-12] MEDS: clonazePAM 0.5 MG TABLET PO SCH (20:39)
[2017-06-12] MEDS: Ondansetron 4 MG/2 ML VIAL IVP PRN (23:36)
[2017-06-13] MEDS: *HR* Morphine 2 MG/ML SYRINGE IVP PRN ×5 (03:12→23:08)
[2017-06-13] MEDS: 0.9 % Sodium Chloride 1,000 ML IVC SCH ×3 (03:21→20:14)
[2017-06-13 04:53] LABS: Basophils % 0.5 %; Eosinophils # 0.1 K/mcL (0.0-0.6); Eosinophils % 2.6 %; Hematocrit 29.9 % (35.3-44.9); Hemoglobin 9.5 g/dL (11.5-15.4); Immature Granulocytes % 0.5 % (0-4); Lymphocytes # 1.2 K/mcL (0.6-4.6); Lymphocytes % 27.8 %; Mean Corpuscular HGB Conc 31.8 g/dL (31.6-35.5); Mean Corpuscular Hemoglobin 24.9 pg (28.0-33.3); Mean Corpuscular Volume 78.3 fL (83.0-100.0); Mean Platelet Volume 10.5 fL (9.4-12.4); Monocytes # 0.2 K/mcL (0.0-1.3); Monocytes % 5.1 %; Neutrophils # 2.7 K/mcL (1.6-8.9); Platelet Count 179 K/mcL (140-400); Red Blood Count 3.82 M/mcL (3.82-4.97); Red Cell Distribution Width 14.6 % (11.5-14.5); Segmented Neutrophils % 63.5 %
[2017-06-13 04:56] LABS: BUN/Creatinine Ratio 7 (6-26); Calcium 7.5 mg/dL (8.6-10.8); Carbon Dioxide 22 mEq/L (19-29); Chloride 108 mEq/L (98-109); Glucose 183 mg/dL (70-99); Osmolality,Calculated 286 (280-300); Potassium 3.2 mEq/L (3.5-4.5); Sodium 137 mEq/L (136-145); eGFR For African Americans > 60 (> 60); eGFR For Non-African Americans > 60 (> 60)
[2017-06-13 04:58] LABS: Blood Urea Nitrogen 4 mg/dL (7-20)
[2017-06-13] MEDS: MetroNIDAZOLE 500 MG/100 ML 500 MG/100 ML BAG IVPB SCH ×3 (09:09→23:07)
[2017-06-13] MEDS: *HR* Dabigatran 150 MG CAPSULE PO SCH ×2 (09:10→20:37)
[2017-06-13] MEDS: Aspirin Enteric Coated 81 MG Tablet PO SCH (09:11)
[2017-06-13] MEDS: cefTRIAXone 1,000 MG in Water for inj. (sterile) 10 ML IVP SCH (09:11)
[2017-06-13] MEDS: Insulin LISPRO 300 UNITS/3 ML VIAL SQ SCH ×4 (09:12→20:37)
[2017-06-13 11:51] LABS: Adenovirus F 40/41 PCR Not detected (Not detect); Astrovirus PCR Not detected (Not detect); C.difficile Toxin A/B by PCR See reflex test (Not detect); Campylobacter by PCR Not detected (Not detect); Cryptosporidium by PCR Not detected (Not detect); Cyclospora cayetanensis PCR Not detected (Not detect); E. coli O157 by PCR Not detected (Not detect); Entamoeba histolytica PCR Not detected (Not detect); Enteroaggregative E.coli(EAEC) Not detected (Not detect); Enteropathogenic E.coli(EPEC) Not detected (Not detect); Enterotoxigenic E.coli (ETEC) Not detected (Not detect); Giardia lamblia PCR Not detected (Not detect); Norovirus GI/GII PCR Not detected (Not detect); Plesiomonas shigelloides PCR Not detected (Not detect); Rotavirus A PCR Not detected (Not detect); Salmonella PCR Not detected (Not detect); Sapovirus PCR Not detected (Not detect); Shig/EnteroinvasiveE coli EIEC Not detected (Not detect); Shigalike tox-prod E coli STEC Not detected (Not detect); Vibrio PCR Not detected (Not detect); Vibrio cholerae PCR Not detected (Not detect); Yersinia enterocolitica PCR Not detected (Not detect)
--- NOTE | 2017-06-13 15:17 | Internal Med Progress Note ---
Date of Encounter: 06/13/17 Time of Encounter: 15:14 - Assessment and plan (1) C. difficile colitis Current Visit: Yes Status: Acute Assessment and plan: Sepsis and Intractable abdominal pain likely related to acute C. difficile colitis White blood cell count dropped to 2.7, and the patient had a fever 101.9 Continue Flagyl day 2, discontinue Rocephin Continue pain management, we will switch to oral Flagyl the patient starts having formed bowel movements GI was consulted. White blood cell scan negative for inflammation or any other source of infection Patient had intractable abdominal pain, MRI from June 07 showed a possible collection on the gallbladder fossa, she had a cholecystectomy in July of this year. The CT scan did not show any collection, interventional radiology drain was cancelled (2) Type 2 diabetes mellitus Current Visit: No Status: Chronic Assessment and plan: insulin sliding scale Qualifiers: Diabetes mellitus complication status: with neurologic complications Diabetes mellitus complication detail: with polyneuropathy Diabetes mellitus manager long term care insulin use: with snf use Qualified Code(s): E11.42 - Type 2 diabetes mellitus with diabetic polyneuropathy; Z79.4 - terminologist (current) use of insulin (3) COPD (chronic obstructive pulmonary disease) Current Visit: No Status: Chronic Assessment and plan: Stable no exacerbation Qualifiers: COPD type: chronic bronchitis Chronic bronchitis type: unspecified Qualified Code(s): J42 - Unspecified chronic bronchitis (4) Paroxysmal atrial fibrillation Current Visit: Yes Status: Acute Assessment and plan: Continue Pradaxa, Lopressor and flecainide (5) Essential hypertension Current Visit: Yes Status: Acute Assessment and plan: continue lisinopril. - Subjective Interval history: complaining of abdominal pain diffuse but mainly epigastric, nausea, no vomiting , had intermittent loose stools for more than a week, denies CP or SOB, no further fevers, last fever of 101.9 on 06/11 - Constitutional Vitals: Temp Pulse Resp BP Pulse Ox 98.4 F 70 18 124/79 94 06/13/17 12:26 06/13/17 12:26 06/13/17 12:26 06/13/17 12:26 06/13/17 12:26 General appearance: Present: mild distress, A&O X 3, morbidly obese, no acute distress, answers questions appropriately - Head Head exam: Present: atraumatic, normocephalic - Eye Eye exam: Present: PERRL, conjuntiva pink, sclera anicteric Pupils: Present: PERRL - Neck Neck exam general surgery: Present: supple, trachea midline. Absent: lymphadenopathy - Respiratory Respiratory exam: Present: CTAB. Absent: accessory muscle use, rales, rhonchi, wheezes - Cardiovascular Cardiovascular exam: Present: RRR, +S1, +S2. Absent: diastolic murmur, gallop, rubs, systolic murmur - GI/Abdominal GI/Abdominal exam: Present: distended, normal bowel sounds, soft, tenderness ( Diffuse abdominal tenderness), no peritoneal signs - Extremities Exam Extremities exam: Present: warm, radial pulses palpable and symmetrical. Absent : calf tenderness, cyanotic, pedal edema - Neurological Exam Neurological exam: Present: CN II-XII intact, oriented X3, no focal deficits. Absent: pronater drift, facial droop, speech deficit - Skin Skin exam: Present: dry, intact Internal Medicine: Result - Labs CBC & Chem 7: 06/13/17 04:10 06/13/17 04:10 Labs: Short CBC 06/13/17 Range/Units 04:10 WBC 4.3 D (4.3-11.1) K/mcL Hgb 9.5 L (11.5-15.4) g/dL Hct 29.9 L (35.3-44.9) % Plt Count 179 (140-400) K/mcL Neutrophils # 2.7 (1.6-8.9) K/mcL BMP 06/13/17 04:10 Sodium 137 Potassium 3.2 L Chloride 108 Carbon Dioxide 22 BUN 4 L Creatinine 0.57 Glucose 183 H Calcium 7.5 L Cardiac Enzymes 06/12/17 06/12/17 Range/Units 16:03 21:35 Troponin I 0.00 0.00 (0-0.03) ng/mL - ABG Interpretation ABG results: PT/INR, D-dimer PT 13.3 Seconds (9.4-12.1) H 06/11/17 11:50 - Impressions Impressions WBC Scan Nuclear Medicine 06/13/17 06:30 IMPRESSION: No abnormal white blood cell accumulation to localize a source of infection. D/ / Matt Fu MD / Matt Fu MD Interpreting Provider: Matt Fu MD Consult Discharge Plan - Plan Referrals: Joanne Paez MD [Primary Care Provider] -
[2017-06-13] MEDS: clonazePAM 0.5 MG TABLET PO SCH (20:37)
[2017-06-13] MEDS: Ondansetron 4 MG/2 ML VIAL IVP PRN (21:07)
[2017-06-14] MEDS: *HR* Morphine 2 MG/ML SYRINGE IVP PRN ×5 (03:06→21:06)
[2017-06-14 05:46] LABS: Basophils % 0.4 %; Red Cell Distribution Width 14.6 % (11.5-14.5)
[2017-06-14 05:47] LABS: Eosinophils # 0.1 K/mcL (0.0-0.6); Eosinophils % 1.8 %; Hematocrit 27.9 % (35.3-44.9); Immature Granulocytes % 0.4 % (0-4); Lymphocytes # 1.4 K/mcL (0.6-4.6); Lymphocytes % 25.1 %; Mean Corpuscular HGB Conc 32.3 g/dL (31.6-35.5); Mean Corpuscular Hemoglobin 24.8 pg (28.0-33.3); Mean Corpuscular Volume 76.9 fL (83.0-100.0); Mean Platelet Volume 10.2 fL (9.4-12.4); Monocytes # 0.3 K/mcL (0.0-1.3); Monocytes % 5.5 %; Neutrophils # 3.7 K/mcL (1.6-8.9); Platelet Count 164 K/mcL (140-400); Red Blood Count 3.63 M/mcL (3.82-4.97); Segmented Neutrophils % 66.8 %
[2017-06-14 06:05] LABS: BUN/Creatinine Ratio 6 (6-26); Calcium 7.6 mg/dL (8.6-10.8); Carbon Dioxide 22 mEq/L (19-29); Chloride 107 mEq/L (98-109); Glucose 175 mg/dL (70-99); Magnesium 1.1 mg/dL (1.6-2.6); Osmolality,Calculated 283 (280-300); Potassium 3.1 mEq/L (3.5-4.5); Sodium 136 mEq/L (136-145); eGFR For African Americans > 60 (> 60); eGFR For Non-African Americans > 60 (> 60)
[2017-06-14 06:06] LABS: Blood Urea Nitrogen 3 mg/dL (7-20)
[2017-06-14] MEDS: 0.9 % Sodium Chloride 1,000 ML IVC SCH ×2 (08:24→23:43)
[2017-06-14] MEDS: MetroNIDAZOLE 500 MG/100 ML 500 MG/100 ML BAG IVPB SCH ×3 (08:24→23:43)
[2017-06-14] MEDS: Insulin LISPRO 300 UNITS/3 ML VIAL SQ SCH ×4 (08:24→21:06)
[2017-06-14] MEDS: *HR* Dabigatran 150 MG CAPSULE PO SCH ×2 (08:25→21:01)
[2017-06-14] MEDS: Aspirin Enteric Coated 81 MG Tablet PO SCH (08:25)
--- NOTE | 2017-06-14 08:47 | Internal Med Progress Note ---
Date of Encounter: 06/14/17 Time of Encounter: 08:45 - Assessment and plan (1) C. difficile colitis Current Visit: Yes Status: Acute Assessment and plan: Sepsis and Intractable abdominal pain likely related to acute C. difficile colitis White blood cell count dropped to 2.7, and the patient had a fever 101.9 Continue Flagyl day 3, discontinued Rocephin Continue pain management, we will switch to oral Flagy when the patient starts having formed bowel movements GI was consulted. White blood cell scan negative for inflammation or any other source of infection Patient had intractable abdominal pain, MRI from June 07 showed a possible collection on the gallbladder fossa, she had a cholecystectomy in July of this year. 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 (6) Hypokalemia Current Visit: Yes Status: Acute Assessment and plan: Replete as needed - Subjective Interval history: Has had 4 bowel movements/loose stools yesterday, complaining of abdominal pain diffuse, no vomiting, had intermittent loose stools for more than a week, denies CP or SOB, no further fevers, last fever of 101.9 on 06/11 - Constitutional Vitals: Temp Pulse Resp BP Pulse Ox 98 F 71 16 121/72 91 06/14/17 07:22 06/14/17 07:22 06/14/17 07:22 06/14/17 07:22 06/14/17 07:22 General appearance: Present: mild distress, A&O X 3, morbidly obese, no acute distress, answers questions appropriately - Head Head exam: Present: atraumatic, normocephalic - Eye Eye exam: Present: PERRL, conjuntiva pink, sclera anicteric Pupils: Present: PERRL - Neck Neck exam general surgery: Present: supple, trachea midline. Absent: lymphadenopathy - Respiratory Respiratory exam: Present: CTAB. Absent: accessory muscle use, rales, rhonchi, wheezes - Cardiovascular Cardiovascular exam: Present: RRR, +S1, +S2. Absent: diastolic murmur, gallop, rubs, systolic murmur - GI/Abdominal GI/Abdominal exam: Present: normal bowel sounds, soft, tenderness (Diffuse abdominal tenderness), no peritoneal signs. Absent: distended - Extremities Exam Extremities exam: Present: warm, radial pulses palpable and symmetrical. Absent : calf tenderness, cyanotic, pedal edema - Neurological Exam Neurological exam: Present: CN II-XII intact, oriented X3, no focal deficits. Absent: pronater drift, facial droop, speech deficit - Skin Skin exam: Present: dry, intact Internal Medicine: Result - Labs CBC & Chem 7: 06/14/17 05:33 06/14/17 05:33 Labs: Short CBC 06/14/17 Range/Units 05:33 WBC 5.5 (4.3-11.1) K/mcL Hgb 9.0 L (11.5-15.4) g/dL Hct 27.9 L (35.3-44.9) % Plt Count 164 (140-400) K/mcL Neutrophils # 3.7 (1.6-8.9) K/mcL BMP 06/14/17 05:33 Sodium 136 Potassium 3.1 L Chloride 107 Carbon Dioxide 22 BUN 3 L Creatinine 0.54 L Glucose 175 H Calcium 7.6 L - ABG Interpretation ABG results: PT/INR, D-dimer PT 13.3 Seconds (9.4-12.1) H 06/11/17 11:50 - VTE Documentation of Mechanical Device: Intermittent pneumatic compression device Consult Discharge Plan - Plan Referrals: Joanne Paez MD [Primary Care Provider] -
[2017-06-14] MEDS: Magnesium Oxide 400 MG TABLET PO SCH ×2 (09:55→21:00)
[2017-06-14] MEDS: Ondansetron 4 MG/2 ML VIAL IVP PRN (12:09)
--- NOTE | 2017-06-14 15:47 | Electrocardiograph Report ---
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
--- NOTE | 2017-06-14 16:12 | Electrocardiograph Report ---
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
[2017-06-14] MEDS: clonazePAM 0.5 MG TABLET PO SCH (21:01)
[2017-06-15] MEDS: *HR* Morphine 2 MG/ML SYRINGE IVP PRN ×5 (02:57→21:22)
[2017-06-15 05:03] LABS: BUN/Creatinine Ratio 9 (6-26); Calcium 7.8 mg/dL (8.6-10.8); Carbon Dioxide 18 mEq/L (19-29); Chloride 107 mEq/L (98-109); Glucose 259 mg/dL (70-99); Osmolality,Calculated 290 (280-300); Potassium 3.5 mEq/L (3.5-4.5); Sodium 137 mEq/L (136-145); eGFR For African Americans > 60 (> 60); eGFR For Non-African Americans > 60 (> 60)
[2017-06-15 05:04] LABS: Blood Urea Nitrogen 5 mg/dL (7-20)
[2017-06-15] MEDS: MetroNIDAZOLE 500 MG/100 ML 500 MG/100 ML BAG IVPB SCH ×2 (08:13→17:33)
[2017-06-15] MEDS: Insulin LISPRO 300 UNITS/3 ML VIAL SQ SCH ×7 (08:13→20:51)
[2017-06-15] MEDS: Aspirin Enteric Coated 81 MG Tablet PO SCH (08:14)
[2017-06-15] MEDS: *HR* Dabigatran 150 MG CAPSULE PO SCH ×2 (08:14→20:11)
[2017-06-15] MEDS: Ondansetron 4 MG/2 ML VIAL IVP PRN ×2 (08:15→17:32)
[2017-06-15] MEDS: Magnesium Oxide 400 MG TABLET PO SCH ×2 (08:15→20:11)
--- NOTE | 2017-06-15 08:33 | Internal Med Progress Note ---
Date of Encounter: 06/15/17 Time of Encounter: 08:30 - Assessment and plan (1) C. difficile colitis Current Visit: Yes Status: Acute Assessment and plan: Sepsis and Intractable abdominal pain likely related to acute C. difficile colitis not improving clinically White blood cell count dropped to 2.7, and the patient had a fever 101.9 Continue Flagyl IV day 3, discontinued Rocephin START ORAL VANCOMYCIN GI was consulted. White blood cell scan negative for inflammation or any other source of infection Patient had intractable abdominal pain, MRI from June 07 showed a possible collection on the gallbladder fossa, she had a cholecystectomy in July of this year. 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 (6) Hypokalemia Current Visit: Yes Status: Acute Assessment and plan: Replete as needed (7) Hypomagnesemia Current Visit: Yes Status: Acute Assessment and plan: Continue magnesium oxide - Subjective Interval history: Has had 20 bowel movements/loose stools since yesterday, complaining of abdominal pain diffuse, no vomiting, had intermittent loose stools for more than a week, denies CP or SOB, no further fevers, last fever of 101.9 on 06/11 - Constitutional Vitals: Temp Pulse Resp BP Pulse Ox 97.9 F 67 16 131/77 94 06/15/17 07:27 06/15/17 07:27 06/15/17 07:27 06/15/17 07:27 06/15/17 07:27 General appearance: Present: mild distress, A&O X 3, morbidly obese, no acute distress, answers questions appropriately - Head Head exam: Present: atraumatic, normocephalic - Eye Eye exam: Present: PERRL, conjuntiva pink, sclera anicteric Pupils: Present: PERRL - Neck Neck exam general surgery: Present: supple, trachea midline. Absent: lymphadenopathy - Respiratory Respiratory exam: Present: CTAB. Absent: accessory muscle use, rales, rhonchi, wheezes - Cardiovascular Cardiovascular exam: Present: RRR, +S1, +S2. Absent: diastolic murmur, gallop, rubs, systolic murmur - GI/Abdominal GI/Abdominal exam: Present: normal bowel sounds, soft, tenderness (Diffuse abdominal tenderness), no peritoneal signs. Absent: distended - Extremities Exam Extremities exam: Present: warm, radial pulses palpable and symmetrical. Absent : calf tenderness, cyanotic, pedal edema - Neurological Exam Neurological exam: Present: CN II-XII intact, oriented X3, no focal deficits. Absent: pronater drift, facial droop, speech deficit - Skin Skin exam: Present: dry, intact Internal Medicine: Result - Labs CBC & Chem 7: 06/14/17 05:33 06/15/17 04:00 Labs: BMP 06/15/17 04:00 Sodium 137 Potassium 3.5 Chloride 107 Carbon Dioxide 18 L BUN 5 L Creatinine 0.58 Glucose 259 H Calcium 7.8 L - ABG Interpretation ABG results: PT/INR, D-dimer PT 13.3 Seconds (9.4-12.1) H 06/11/17 11:50 - VTE Documentation of Mechanical Device: Intermittent pneumatic compression device Consult Discharge Plan - Plan Referrals: Joanne Paez MD [Primary Care Provider] -
[2017-06-15] MEDS: Insulin DETEMIR 100 UNIT/ML X5UNITS SQ SCH ×2 (10:34→20:10)
[2017-06-15] MEDS: Vancomycin Oral Soln 250 MG/5 ML UDC PO SCH ×4 (10:35→20:11)
[2017-06-15] MEDS: 0.9 % Sodium Chloride 1,000 ML IVC SCH (10:41)
[2017-06-15] MEDS: Lactobacillus 1 EACH CAP.SPRINK PO SCH ×2 (17:32→20:33)
[2017-06-15] MEDS: Cholestyramine 4 GM POWD.PACK PO SCH ×2 (18:28→21:23)
[2017-06-15] MEDS: clonazePAM 0.5 MG TABLET PO SCH (20:12)
[2017-06-16] MEDS: MetroNIDAZOLE 500 MG/100 ML 500 MG/100 ML BAG IVPB SCH ×3 (00:44→18:13)
[2017-06-16] MEDS: *HR* Morphine 2 MG/ML SYRINGE IVP PRN ×4 (01:22→22:17)
[2017-06-16] MEDS: 0.9 % Sodium Chloride 1,000 ML IVC SCH ×2 (02:13→09:14)
[2017-06-16] MEDS: *HR* HYDROcodone/Acet 5/325 mg TABLET PO PRN (04:32)
--- NOTE | 2017-06-16 07:52 | Internal Med Progress Note ---
Date of Encounter: 06/16/17 Time of Encounter: 07:50 - Assessment and plan (1) C. difficile colitis Current Visit: Yes Status: Acute Assessment and plan: Sepsis and Intractable abdominal pain likely related to acute C. difficile colitis not improving clinically White blood cell count dropped to 2.7, and the patient had a fever 101.9 Continue Flagyl IV day 4, discontinued Rocephin at day 2 Continue ORAL VANCOMYCIN day 2 GI was consulted. White blood cell scan negative for inflammation or any other source of infection Patient had intractable abdominal pain, MRI from June 07 showed a possible collection on the gallbladder fossa, she had a cholecystectomy in July of this year. 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 (6) Hypokalemia Current Visit: Yes Status: Acute Assessment and plan: Replete as needed (7) Hypomagnesemia Current Visit: Yes Status: Acute Assessment and plan: Continue magnesium oxide - Subjective Interval history: Has had 10 ( had 20 the day before) bowel movements/loose stools since yesterday , complaining of less diffuse abdominal pain, no vomiting, had intermittent loose stools for more than a week, denies CP or SOB, no further fevers, last fever of 101.9 on 06/11 - Constitutional Vitals: Temp Pulse Resp BP Pulse Ox 98.2 F 68 16 126/84 97 06/16/17 03:14 06/16/17 03:14 06/16/17 03:14 06/16/17 03:14 06/16/17 03:14 General appearance: Present: mild distress, A&O X 3, morbidly obese, no acute distress, answers questions appropriately - Head Head exam: Present: atraumatic, normocephalic - Eye Eye exam: Present: PERRL, conjuntiva pink, sclera anicteric Pupils: Present: PERRL - Neck Neck exam general surgery: Present: supple, trachea midline. Absent: lymphadenopathy - Respiratory Respiratory exam: Present: CTAB. Absent: accessory muscle use, rales, rhonchi, wheezes - Cardiovascular Cardiovascular exam: Present: RRR, +S1, +S2. Absent: diastolic murmur, gallop, rubs, systolic murmur - GI/Abdominal GI/Abdominal exam: Present: normal bowel sounds, soft, no peritoneal signs. Absent: distended, tenderness - Extremities Exam Extremities exam: Present: tenderness (Diffuse abdominal tenderness improving), warm, radial pulses palpable and symmetrical. Absent: calf tenderness, cyanotic , pedal edema - Neurological Exam Neurological exam: Present: CN II-XII intact, oriented X3, no focal deficits. Absent: pronater drift, facial droop, speech deficit - Skin Skin exam: Present: dry, intact Internal Medicine: Result - Labs CBC & Chem 7: 06/14/17 05:33 06/15/17 04:00 - ABG Interpretation ABG results: PT/INR, D-dimer PT 13.3 Seconds (9.4-12.1) H 06/11/17 11:50 - VTE Documentation of Mechanical Device: Intermittent pneumatic compression device Consult Discharge Plan - Plan Referrals: Joanne Paez MD [Primary Care Provider] -
[2017-06-16] MEDS: Insulin LISPRO 300 UNITS/3 ML VIAL SQ SCH ×7 (09:15→21:07)
[2017-06-16] MEDS: Vancomycin Oral Soln 250 MG/5 ML UDC PO SCH ×4 (09:16→22:17)
[2017-06-16] MEDS: Magnesium Oxide 400 MG TABLET PO SCH ×2 (09:17→21:00)
[2017-06-16] MEDS: Lactobacillus 1 EACH CAP.SPRINK PO SCH ×2 (09:17→21:00)
[2017-06-16] MEDS: *HR* Dabigatran 150 MG CAPSULE PO SCH ×2 (09:18→21:01)
[2017-06-16] MEDS: Aspirin Enteric Coated 81 MG Tablet PO SCH (09:18)
[2017-06-16] MEDS: Cholestyramine 4 GM POWD.PACK PO SCH ×4 (09:59→21:08)
[2017-06-16] MEDS: clonazePAM 0.5 MG TABLET PO SCH (21:00)
[2017-06-16] MEDS: Insulin DETEMIR 100 UNIT/ML X5UNITS SQ SCH (21:06)
[2017-06-17] MEDS: 0.9 % Sodium Chloride 1,000 ML IVC SCH (01:05)
[2017-06-17] MEDS: *HR* Morphine 2 MG/ML SYRINGE IVP PRN ×5 (02:15→21:19)
[2017-06-17] MEDS: MetroNIDAZOLE 500 MG/100 ML 500 MG/100 ML BAG IVPB SCH ×3 (02:15→16:57)
[2017-06-17 05:02] LABS: BUN/Creatinine Ratio 11 (6-26); Blood Urea Nitrogen 6 mg/dL (7-20); Calcium 8.7 mg/dL (8.6-10.8); Carbon Dioxide 24 mEq/L (19-29); Chloride 108 mEq/L (98-109); Glucose 140 mg/dL (70-99); Magnesium 1.6 mg/dL (1.6-2.6); Osmolality,Calculated 290 (280-300); Potassium 3.5 mEq/L (3.5-4.5); Sodium 140 mEq/L (136-145); eGFR For African Americans > 60 (> 60); eGFR For Non-African Americans > 60 (> 60)
[2017-06-17] MEDS: Cholestyramine 4 GM POWD.PACK PO SCH ×3 (06:29→16:57)
[2017-06-17] MEDS: Aspirin Enteric Coated 81 MG Tablet PO SCH (08:52)
[2017-06-17] MEDS: *HR* Dabigatran 150 MG CAPSULE PO SCH ×2 (08:52→21:18)
[2017-06-17] MEDS: Lactobacillus 1 EACH CAP.SPRINK PO SCH ×2 (08:52→21:17)
[2017-06-17] MEDS: Vancomycin Oral Soln 250 MG/5 ML UDC PO SCH ×4 (08:53→21:23)
[2017-06-17] MEDS: Magnesium Oxide 400 MG TABLET PO SCH ×2 (08:53→21:19)
[2017-06-17] MEDS: Insulin LISPRO 300 UNITS/3 ML VIAL SQ SCH ×7 (08:54→23:16)
--- NOTE | 2017-06-17 10:50 | Internal Med Progress Note ---
<Brunilda Dillard - Last Filed: 06/17/17 15:20> Date of Encounter: 06/17/17 Time of Encounter: 10:20 - Assessment and plan (1) C. difficile colitis Current Visit: Yes Status: Acute Assessment and plan: Sepsis and intractable abdominal pain likely related to acute C. difficile colitis GI was consulted White blood cell count dropped to 2.7, and Tmax 101.9 MRI 06/07/17--possible fluid collection in gallbladder fossa, h/o cholecystectomy in July 2016 CT abdomen 06/11/17 showed improvement of stranding in gallbladder fossa Tagged WBC scan 06/13/17--no abnormal WBC accumulation suggestive of other infectious source Stopped Rocephin on Day 2 Continue Flagyl IV Day 6 Continue Vancomycin PO Day 3 (2) HTN (hypertension) Current Visit: No Status: Chronic Assessment and plan: BP 149/69 today, takes lisinopril 5mg PO QD Qualifiers: Hypertension type: unspecified Qualified Code(s): I10 - Essential (primary ) hypertension (3) Paroxysmal atrial fibrillation Current Visit: No Status: Chronic Assessment and plan: Rate controlled, HR 75 this AM Continue metoprolol, flecainide, and dabigatran (4) Type 2 diabetes mellitus Current Visit: No Status: Chronic Assessment and plan: SSI with Lispro 3 units TID and Detemir 10 units QD Qualifiers: Diabetes mellitus complication status: with neurologic complications Diabetes mellitus complication detail: with polyneuropathy Diabetes mellitus terminal makeup operator insulin use: with [facility] use Qualified Code(s): E11.42 - Type 2 diabetes mellitus with diabetic polyneuropathy; Z79.4 - alf (current) use of insulin (5) COPD (chronic obstructive pulmonary disease) Current Visit: No Status: Chronic Assessment and plan: Stable, no exacerbations Qualifiers: COPD type: chronic bronchitis Chronic bronchitis type: unspecified Qualified Code(s): J42 - Unspecified chronic bronchitis (6) Hypokalemia Current Visit: Yes Status: Acute Assessment and plan: Potassium 3.5 today, replace PRN (7) Hypomagnesemia Current Visit: Yes Status: Acute Assessment and plan: Magnesium WNL today, continue magnesium oxide - Subjective Interval history: Seen and examined this morning at bedside, she is resting in her bed. Patient doesn't feel much better, states she is very tired. Admits she's had 5 bowel movements since 08:00 this morning; diarrhea is no longer watery, a bit more solid. Admits to continued abdominal pain and back pain; sometimes nauseas with bowel movements. Denies chest pain, coughing, wheezing. - Constitutional Vitals: Temp Pulse Resp BP Pulse Ox 98.5 F 75 14 149/69 93 06/17/17 08:25 06/17/17 08:25 06/17/17 08:25 06/17/17 08:25 06/17/17 08:25 General appearance: Present: A&O X 3, morbidly obese, no acute distress, answers questions appropriately - Head Head exam: Present: atraumatic, normocephalic - Eye Eye exam: Present: EOMI - Neck Neck exam general surgery: Present: full ROM, supple - Respiratory Respiratory exam: Absent: respiratory distress, wheezes, tachypnea Additional comments: faint crackles on Lt side, basilar - Cardiovascular Cardiovascular exam: Present: RRR, +S1, +S2. Absent: diastolic murmur, systolic murmur - GI/Abdominal GI/Abdominal exam: Present: normal bowel sounds, soft. Absent: distended, guarding, rigid - Neurological Exam Neurological exam: Present: alert, oriented X3, no focal deficits. Absent: facial droop, speech deficit Internal Medicine: Result - Labs CBC & Chem 7: 06/14/17 05:33 06/17/17 04:25 Labs: BMP 06/17/17 04:25 Sodium 140 Potassium 3.5 Chloride 108 Carbon Dioxide 24 BUN 6 L Creatinine 0.57 Glucose 140 H Calcium 8.7 - ABG Interpretation ABG results: PT/INR, D-dimer PT 13.3 Seconds (9.4-12.1) H 06/11/17 11:50 - VTE Documentation of Mechanical Device: Intermittent pneumatic compression device Consult Discharge Plan - Plan Referrals: Joanne Paez MD [Primary Care Provider] - <Bahman Venturavidalnabila - Last Filed: 06/17/17 17:19> Date of Encounter: 06/17/17 - Constitutional Vitals: Temp Pulse Resp BP Pulse Ox 98.3 F 62 16 143/83 100 06/17/17 16:30 06/17/17 16:30 06/17/17 16:30 06/17/17 16:30 06/17/17 16:30 Internal Medicine: Result - Labs CBC & Chem 7: 06/14/17 05:33 06/17/17 04:25 Labs: BMP 06/17/17 04:25 Sodium 140 Potassium 3.5 Chloride 108 Carbon Dioxide 24 BUN 6 L Creatinine 0.57 Glucose 140 H Calcium 8.7 - ABG Interpretation ABG results: PT/INR, D-dimer PT 13.3 Seconds (9.4-12.1) H 06/11/17 11:50 - Attending Attestation I examined this patient and my medical decision-making was reviewed with the Resident Physician. I agree with the documented findings, disposition and treatment plan as described except to the extent set forth below.
[2017-06-17] MEDS ORDERED: Potassium Chloride Elixir 20 MEQ/15 ML UDC PO ONE (15:56)
[2017-06-17] MEDS: *HR* HYDROcodone/Acet 5/325 mg TABLET PO PRN (19:41)
[2017-06-17] MEDS: clonazePAM 0.5 MG TABLET PO SCH (21:17)
[2017-06-17] MEDS: Insulin DETEMIR 100 UNIT/ML X5UNITS SQ SCH (21:24)
[2017-06-18] MEDS: Cholestyramine 4 GM POWD.PACK PO SCH ×5 (01:20→21:30)
[2017-06-18] MEDS: *HR* Morphine 2 MG/ML SYRINGE IVP PRN ×5 (01:21→21:31)
[2017-06-18] MEDS: MetroNIDAZOLE 500 MG/100 ML 500 MG/100 ML BAG IVPB SCH ×3 (01:22→16:54)
[2017-06-18 07:03] LABS: Basophils % 0.7 %; Eosinophils # 0.2 K/mcL (0.0-0.6); Eosinophils % 3.3 %; Hematocrit 32.3 % (35.3-44.9); Hemoglobin 10.1 g/dL (11.5-15.4); Lymphocytes # 1.1 K/mcL (0.6-4.6); Lymphocytes % 17.4 %; Mean Corpuscular HGB Conc 31.3 g/dL (31.6-35.5); Mean Corpuscular Hemoglobin 24.5 pg (28.0-33.3); Mean Corpuscular Volume 78.2 fL (83.0-100.0); Mean Platelet Volume 10.6 fL (9.4-12.4); Monocytes # 0.3 K/mcL (0.0-1.3); Monocytes % 4.5 %; Neutrophils # 4.4 K/mcL (1.6-8.9); Nucleated Red Blood Cells 0.3 /100 WBC (0); Platelet Count 275 K/mcL (140-400); Red Blood Count 4.13 M/mcL (3.82-4.97); Red Cell Distribution Width 15.3 % (11.5-14.5); Segmented Neutrophils % 73.1 %
[2017-06-18 07:20] LABS: BUN/Creatinine Ratio 9 (6-26); Calcium 8.5 mg/dL (8.6-10.8); Carbon Dioxide 23 mEq/L (19-29); Chloride 106 mEq/L (98-109); Glucose 152 mg/dL (70-99); Magnesium 1.7 mg/dL (1.6-2.6); Osmolality,Calculated 288 (280-300); Potassium 3.8 mEq/L (3.5-4.5); Sodium 139 mEq/L (136-145); eGFR For African Americans > 60 (> 60); eGFR For Non-African Americans > 60 (> 60)
[2017-06-18 07:54] LABS: Blood Urea Nitrogen 5 mg/dL (7-20)
[2017-06-18] MEDS: 0.9 % Sodium Chloride 1,000 ML IVC SCH ×2 (08:13→21:33)
[2017-06-18] MEDS: Aspirin Enteric Coated 81 MG Tablet PO SCH (08:16)
[2017-06-18] MEDS: Lactobacillus 1 EACH CAP.SPRINK PO SCH ×2 (08:16→20:03)
[2017-06-18] MEDS: Magnesium Oxide 400 MG TABLET PO SCH ×2 (08:17→20:03)
[2017-06-18] MEDS: Vancomycin Oral Soln 250 MG/5 ML UDC PO SCH ×4 (08:18→20:05)
[2017-06-18] MEDS: *HR* Dabigatran 150 MG CAPSULE PO SCH ×2 (08:18→20:03)
[2017-06-18] MEDS: Insulin LISPRO 300 UNITS/3 ML VIAL SQ SCH ×7 (08:22→20:06)
--- NOTE | 2017-06-18 18:19 | Internal Med Progress Note ---
Date of Encounter: 06/18/17 Time of Encounter: 18:18 - Assessment and plan (1) C. difficile colitis Current Visit: Yes Status: Acute Assessment and plan: Sepsis and intractable abdominal pain likely related to acute C. difficile colitis GI was consulted White blood cell count dropped to 2.7, and Tmax 101.9 MRI 06/07/17--possible fluid collection in gallbladder fossa, h/o cholecystectomy in July 2016 CT abdomen 06/11/17 showed improvement of stranding in gallbladder fossa Tagged WBC scan 06/13/17--no abnormal WBC accumulation suggestive of other infectious source Stopped Rocephin on Day 2 Continue Flagyl IV Day 7 Continue Vancomycin PO Day 4 (2) Essential hypertension Current Visit: Yes Status: Acute Assessment and plan: continue lisinopril. (3) Hypokalemia Current Visit: Yes Status: Acute Assessment and plan: Replace as needed. (4) Hypomagnesemia Current Visit: Yes Status: Acute Assessment and plan: Continue magnesium oxide (5) Nausea & vomiting Current Visit: Yes Status: Acute Qualifiers: Vomiting type: unspecified Vomiting Intractability: unspecified Qualified Code(s): R11.2 - Nausea with vomiting, unspecified (6) Paroxysmal atrial fibrillation Current Visit: Yes Status: Acute Assessment and plan: Continue Pradaxa, Lopressor and flecainide (7) Diabetes mellitus Current Visit: Yes Status: Chronic Assessment and plan: hold oral meds Low dose sliding scale insulin. 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 30 BM yesterday and now today 15 BMs. Diet is poor today. - Constitutional Vitals: Temp Pulse Resp BP Pulse Ox 98.3 F 59 18 128/69 95 06/18/17 15:02 06/18/17 15:02 06/18/17 15:02 06/18/17 15:02 06/18/17 15:02 General appearance: Present: A&O X 3, morbidly obese, no acute distress, answers questions appropriately Exam: CVS: irreg irreg rhythm Lungs; CTAB Abd: soft, nt/nd, Ext: no edema. Internal Medicine: Result - Labs CBC & Chem 7: 06/18/17 05:55 06/18/17 05:55 Labs: Short CBC 06/18/17 Range/Units 05:55 WBC 6.0 (4.3-11.1) K/mcL Hgb 10.1 L (11.5-15.4) g/dL Hct 32.3 L (35.3-44.9) % Plt Count 275 D (140-400) K/mcL Neutrophils # 4.4 (1.6-8.9) K/mcL BMP 06/18/17 05:55 Sodium 139 Potassium 3.8 Chloride 106 Carbon Dioxide 23 BUN 5 L Creatinine 0.57 Glucose 152 H Calcium 8.5 L - ABG Interpretation ABG results: PT/INR, D-dimer PT 13.3 Seconds (9.4-12.1) H 06/11/17 11:50 - VTE Documentation of Mechanical Device: Intermittent pneumatic compression device Consult Discharge Plan - Plan Referrals: Joanne Paez MD [Primary Care Provider] -
[2017-06-18] MEDS: clonazePAM 0.5 MG TABLET PO SCH (20:04)
[2017-06-18] MEDS: Insulin DETEMIR 100 UNIT/ML X5UNITS SQ SCH (20:06)
[2017-06-19] MEDS: *HR* HYDROcodone/Acet 5/325 mg TABLET PO PRN ×4 (00:12→20:48)
[2017-06-19] MEDS: MetroNIDAZOLE 500 MG/100 ML 500 MG/100 ML BAG IVPB SCH ×3 (01:30→17:00)
[2017-06-19] MEDS: *HR* Morphine 2 MG/ML SYRINGE IVP PRN ×4 (01:31→22:27)
[2017-06-19] MEDS: Cholestyramine 4 GM POWD.PACK PO SCH ×4 (06:30→20:49)
[2017-06-19] MEDS: 0.9 % Sodium Chloride 1,000 ML IVC SCH ×2 (08:03→21:04)
[2017-06-19] MEDS: Aspirin Enteric Coated 81 MG Tablet PO SCH (08:05)
[2017-06-19] MEDS: Magnesium Oxide 400 MG TABLET PO SCH ×2 (08:06→20:49)
[2017-06-19] MEDS: *HR* Dabigatran 150 MG CAPSULE PO SCH ×2 (08:06→20:48)
[2017-06-19] MEDS: Lactobacillus 1 EACH CAP.SPRINK PO SCH ×2 (08:06→20:49)
[2017-06-19] MEDS: Insulin LISPRO 300 UNITS/3 ML VIAL SQ SCH ×7 (08:08→20:40)
[2017-06-19] MEDS: Vancomycin Oral Soln 250 MG/5 ML UDC PO SCH ×4 (08:27→20:58)
[2017-06-19] MEDS: clonazePAM 0.5 MG TABLET PO SCH (20:48)
[2017-06-19] MEDS: Insulin DETEMIR 100 UNIT/ML X5UNITS SQ SCH (20:58)
--- NOTE | 2017-06-20 00:38 | Internal Med Progress Note ---
Date of Encounter: 06/19/17 Time of Encounter: 09:36 - Assessment and plan (1) C. difficile colitis Current Visit: Yes Status: Acute Assessment and plan: Sepsis and intractable abdominal pain likely related to acute C. difficile colitis GI was consulted White blood cell count dropped to 2.7, and Tmax 101.9 MRI 06/07/17--possible fluid collection in gallbladder fossa, h/o cholecystectomy in July 2016 CT abdomen 06/11/17 showed improvement of stranding in gallbladder fossa Tagged WBC scan 06/13/17--no abnormal WBC accumulation suggestive of other infectious source Stopped Rocephin on Day 2 Continue Flagyl IV Continue Vancomycin PO Monitor diet today and BMs today. Possibly DC tomorrow if stable. (2) Essential hypertension Current Visit: Yes Status: Acute (3) Hypokalemia Current Visit: Yes Status: Acute (4) Hypomagnesemia Current Visit: Yes Status: Acute (5) Nausea & vomiting Current Visit: Yes Status: Acute Qualifiers: Vomiting type: unspecified Vomiting Intractability: unspecified Qualified Code(s): R11.2 - Nausea with vomiting, unspecified (6) Paroxysmal atrial fibrillation Current Visit: Yes Status: Acute (7) Diabetes mellitus Current Visit: Yes Status: Chronic Qualifiers: Diabetes mellitus type: type 2 Diabetes mellitus complication status: without complication Diabetes mellitus snf insulin use: with intermediate frame tender use Qualified Code(s): E11.9 - Type 2 diabetes mellitus without complications ; Z79.4 - long-term (current) use of insulin; 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 Unsure if this is getting worse than yesterday. Two days ago had 30 BMs with poor appetite. Yesterday had 15 BMs with poor appetite. - Constitutional Vitals: Temp Pulse Resp BP Pulse Ox 98.2 F 67 16 152/73 93 06/19/17 22:54 06/19/17 22:54 06/19/17 22:54 06/19/17 22:54 06/19/17 22:54 General appearance: Present: A&O X 3, morbidly obese, no acute distress, answers questions appropriately Exam: CVS: RRR Lungs: CTAB Abd; nt/nd, soft Internal Medicine: Result - Labs CBC & Chem 7: 06/18/17 05:55 06/18/17 05:55 - ABG Interpretation ABG results: PT/INR, D-dimer PT 13.3 Seconds (9.4-12.1) H 06/11/17 11:50 - Impressions Impressions Pelvis Ultrasound 06/19/17 15:00 IMPRESSION: There is a 5.5 cm simple appearing cyst within the left ovary. 1 year follow-up recommended. Endometrial stripe measures 1.3 cm. If the patient is postmenopausal this is thickened. Clinical correlation with menopausal status recommended. Normal Doppler flow within the ovaries. D/ / Giselle Nelson MD / Giselle Nelson MD Interpreting Provider: Giselle Nelson MD - VTE Documentation of Mechanical Device: Intermittent pneumatic compression device Consult Discharge Plan - Plan Referrals: Joanne Paez MD [Primary Care Provider] - 06/28/17 1:45 pm
[2017-06-20] MEDS: MetroNIDAZOLE 500 MG/100 ML 500 MG/100 ML BAG IVPB SCH ×2 (01:36→10:25)
[2017-06-20] MEDS: *HR* Morphine 2 MG/ML SYRINGE IVP PRN (03:06)
[2017-06-20] MEDS: 0.9 % Sodium Chloride 1,000 ML IVC SCH ×2 (07:26→08:18)
[2017-06-20 07:37] VITALS: BP 148/75
[2017-06-20] MEDS: Insulin LISPRO 300 UNITS/3 ML VIAL SQ SCH ×2 (07:58)
[2017-06-20] MEDS: *HR* HYDROcodone/Acet 5/325 mg TABLET PO PRN (08:17)
[2017-06-20] MEDS: Lactobacillus 1 EACH CAP.SPRINK PO SCH (08:17)
[2017-06-20] MEDS: Aspirin Enteric Coated 81 MG Tablet PO SCH (08:17)
[2017-06-20] MEDS: *HR* Dabigatran 150 MG CAPSULE PO SCH (08:17)
[2017-06-20] MEDS: Magnesium Oxide 400 MG TABLET PO SCH (08:17)
[2017-06-20] MEDS: Vancomycin Oral Soln 250 MG/5 ML UDC PO SCH (08:18)
--- NOTE | 2017-06-20 10:04 | Discharge Summary ---
Date of Encounter: 06/20/17 Time of Encounter: 09:52 - Discharge Diagnosis (1) C. difficile colitis Priority: Primary Status: Acute (2) Nausea & vomiting Priority: Secondary Status: Acute Comments: secondary to C. difficile colitis Qualifiers: Vomiting type: unspecified Vomiting Intractability: unspecified Qualified Code(s): R11.2 - Nausea with vomiting, unspecified (3) Essential hypertension Priority: Secondary Status: Acute (4) Hypokalemia Priority: Secondary Status: Acute (5) Hypomagnesemia Priority: Secondary Status: Acute (6) Paroxysmal atrial fibrillation Priority: Secondary Status: Acute (7) Diabetes mellitus Priority: Secondary Status: Chronic Qualifiers: Diabetes mellitus type: type 2 Diabetes mellitus complication status: without complication Diabetes mellitus usp insulin use: with usp use Qualified Code(s): E11.9 - Type 2 diabetes mellitus without complications ; Z79.4 - terminal make up operator (current) use of insulin; Z79.4 - terminal make up operator (current) use of insulin; Z79.4 - terminal make up operator (current) use of insulin; Z79.4 - intermediate ( current) use of insulin - Discharge Medications Prescriptions: Lactobacillus [Culturelle] 1 each PO BID #60 cap.sprink Home Medications: Aspirin [Adult Low Dose Aspirin EC] 81 mg PO DAILY 10/26/15 [History] Etonogestrel [Nexplanon] 68 mg SQ AD 10/26/15 [History] metFORMIN [Glucophage] 1,000 mg PO BIDWM 10/26/15 [History] Albuterol Sulfate [Proair Respiclick] 2 puff IH Q4H PRN #1 02/08/17 [Rx] Lisinopril [Zestril] 5 mg PO DAILY #30 02/08/17 [Rx] Metoprolol [Lopressor] 25 mg PO BID 30 Days tablet 02/08/17 [Rx] clonazePAM [Klonopin] 0.5 mg PO HS 03/04/17 [History] Dabigatran Etexilate Mesylate [Pradaxa] 150 mg PO BID 05/12/17 [History] Flecainide 100 mg PO BID 05/12/17 [History] Omeprazole [PriLOSEC] 40 mg PO DAILY 05/12/17 [History] Atorvastatin Calcium [Lipitor] 20 mg PO HS 06/03/17 [History] Sertraline [Zoloft] 300 mg PO DAILY 06/03/17 [History] traZODone [TraZODone] 50 - 100 mg PO HS PRN 06/03/17 [History] Cyclobenzaprine [Flexeril] 10 mg PO BID PRN #6 tablet 06/08/17 [Rx] Lactobacillus [Culturelle] 1 each PO BID #60 cap.sprink 06/20/17 [Rx] Lisinopril [Zestril] 5 mg PO DAILY tablet 06/20/17 [Rx] Vancomycin Oral Soln [Vancocin] 125 mg PO QID #100 ml 06/20/17 [Rx] metroNIDAZOLE [Flagyl] 500 mg PO TID 10 Days #30 tablet 06/20/17 [Rx] Allergies/Adverse Reactions: 3 Allergy/AdvReac Type Severity Reaction Status Date / Time No Known Allergies Allergy Verified 06/11/17 11:24 Procedures/tests Complete & Pending: Procedures Performed prior 72 hours Category Date Time Status US pelvis extended [US] Routine Exams 06/19/17 15:00 Completed Date of admission: 06/13/17 16:52 Primary care physician: Joanne Paez Consults: 06/17/17 14:32 Consult to [employer] Professor [CONS] Routine Reason for SW Consult: discharge needs Discharging clinician: Femi Gudino - Patient Status Disposition: Home, Self-Care Condition: Good Functional capacity at discharge: independent ambulation Overall status at discharge: patient is progressing back to baseline - Discharge Instructions Follow Up With: Joanne Paez MD [Primary Care Provider] - 06/28/17 1:45 pm - Diet and Activity Activity: increase activity as tolerated Diet: diabetic diet Interval History: Ms. Jacome is a 51 year old female with a PMH of a cholecystectomy in July 2016, A. fib, COPD, CVA, DM, HLD, HTN, TIA, and CA. She presented to [facility] with complaints of abdominal pain. She reports abdominal pain has been ongoing since July 2016 following a cholecystectomy. She describes the abdominal pain as being located in the right upper quadrant and epigastrium, the pain is described as a sharp-type intensity with radiation to the back with a 9/10 intensity. She reported that she has had an 18 pound weight loss since July, she has not been able to eat due to nausea and diarrhea after eating. She states that over the last several weeks the pain has intensified. She has had multiple images completed recently with no clear etiology for her abdominal pain with the exception of some fluid in the gallbladder fossa. She admits to fever, chills, fatigue, and night sweats. She denies any chest pain, vomiting, shortness of breath, palpitations, hematemesis. Due to ongoing symptoms she is being admitted for further evaluation and consultation with gastroenterology. Most recent CT showed no fluid and so IR did not drain fluid. There was suspicion for infection of GI source. She was initially on Zosyn and was changed to Flagyl and Rocephin. Patient tested positive for C diff colitis and treated for sepsis. Cell count dropped to 2.7 and patient did not have a fever of 101.9. Remainder of stool panel was negative. Blood cell scan was done and was negative for any inflammation or any other source of infection. On 06/15 patient was started on oral vancomycin in addition to Flagyl IV (see which was started 3 days prior to vancomycin) and Rocephin was discontinued. And had poor appetite and several episodes of diarrhea that was not resolving for several days. After 4 days of oral vancomycin in addition to Flagyl, patient's diarrhea somewhat improved but appetite was still poor. Eventually she was able to eat without issue and vital signs and labs remained stable. She was discharged home in stable condition to be treated for an additional 10 day therapy of oral vancomycin and Flagyl. Hospital course: Ms. Jacome is a 51 year old female - Time Spent with Patient Total time spent providing and/or coordinating discharge services: - Constitutional Vitals: Temp Pulse Resp BP Pulse Ox 98.2 F 55 18 148/75 96 06/20/17 07:36 06/20/17 07:36 06/20/17 07:36 06/20/17 07:36 06/20/17 07:36 General appearance: Present: A&O X 3, morbidly obese, no acute distress, answers questions appropriately Exam: CVS: RRR Lungs: CTAB Abd; nt/nd, soft - VTE Documentation of Mechanical Device: Intermittent pneumatic compression device
[2017-06-20] MEDS: Cholestyramine 4 GM POWD.PACK PO SCH (10:23)
== END 2017-06-20 11:35 | disposition home or self-care (01) | DRG 720 ==
LOC: 3BNU 11:03 → EMEROO 11:03 → SUATTDRO 13:51 → 3BNU 15:36 → SUATTDRO 06-13 16:52
PROVIDERS: ADMIT Internal Medicine; ATTEND Student in an Organized Health Care Education/Training Program

== ENCOUNTER 2017-06-23 18:16 | Inpatient (IN) ==
[2017-06-23] MEDS ORDERED: Ondansetron 4 MG/2 ML VIAL IVP ONE (18:42)
[2017-06-23 18:48] LABS: Bilirubin,Urine Negative (Negative); Blood,Urine Trace (Negative); Clarity,Urine Clear (Clear); Color,Urine Yellow (Yellow); Glucose,Urine (UA) 250 mg/dL (Normal); Ketones,Urine Negative (Negative); Leukocyte Esterase,Urine Negative (Negative); Nitrite,Urine Negative (Negative); Protein,Urine Negative (Neg-Trace); Specific Gravity,Urine 1.022 (1.010-1.025); Urobilinogen,Urine Normal (Normal)
[2017-06-23 18:49] LABS: Bacteria,Urine None Seen per hpf (None-Few); Hyaline Casts,Urine None Seen per lpf (None-Few); RBC,Urine 0-3 per hpf (0-3); Squamous Epithelial Cell,Urine Many per lpf (None-Few); WBC,Urine 0-3 per hpf (0-3)
[2017-06-23] MEDS ORDERED: *HR* Morphine 2 MG/ML SYRINGE IVP ONE ×2 (18:53→19:45)
[2017-06-23] MEDS ORDERED: 0.9 % Sodium Chloride 1,000 ML IVC ONE ×2 (18:53→22:59)
[2017-06-23] MEDS: Ondansetron 4 MG/2 ML VIAL IVP ONE ×2 (19:10→20:14)
[2017-06-23 19:14] LABS: Basophils % 0.5 %; Eosinophils # 0.2 K/mcL (0.0-0.6); Eosinophils % 2.3 %; Immature Granulocytes % 0.4 % (0-4); Lymphocytes # 1.9 K/mcL (0.6-4.6); Lymphocytes % 21.9 %; Mean Corpuscular HGB Conc 31.3 g/dL (31.6-35.5); Mean Corpuscular Hemoglobin 24.8 pg (28.0-33.3); Mean Corpuscular Volume 79.3 fL (83.0-100.0); Mean Platelet Volume 9.6 fL (9.4-12.4); Monocytes # 0.5 K/mcL (0.0-1.3); Monocytes % 5.3 %; Platelet Count 302 K/mcL (140-400); Red Blood Count 4.79 M/mcL (3.82-4.97); Red Cell Distribution Width 16.1 % (11.5-14.5); Segmented Neutrophils % 69.6 %
[2017-06-23 19:15] LABS: Hemoglobin 11.9 g/dL (11.5-15.4)
--- NOTE | 2017-06-23 19:16 | Emergency Department Note ---
Disposition Clinical Impression: C. difficile colitis, Diarrhea associated with pseudomembranous colitis Abdominal pain Qualifiers: Abdominal location: upper abdomen, unspecified Qualified Code(s): R10.10 - Upper abdominal pain, unspecified Disposition: Admitted As Inpatient Condition: Fair Referrals: Joanne Paez MD [Primary Care Provider] - Forms: ED Satisfaction Letter, Work/School Release Time of Disposition: 20:44 Abdominal Pain HPI - General Chief Complaint: ED Abdominal Pain Stated Complaint: Abd Pain Time Seen by Provider: 06/23/17 18:24 Source: patient Mode of arrival: ambulatory Limitations: no limitations Nursing Notes Reviewed: Yes Vital Signs Reviewed: Yes - History of Present Illness HPI Narrative: 51-year-old female presents to the emergency department with abdominal pain. She was recently discharged from the hospital for C. difficile approximately 4 days ago. She is unable to afford the vancomycin sizzling been taking the Flagyl. She says her stools are still been watery and the pain is increased and is exactly what caused her to come in. She was admitted for 2 weeks. She says she is having so watery stools when she eats anything it woke him out of her in about 5 minutes. She does not have any vomiting but is nauseous. She says the pain is across the top of her belly radiates to the back on each sides. She says it is 8 out of 10 and is very hard to do anything. She describes the pain as sharp stabbing pain. She has not taken anything to make the pain go away. Patient is not having any other problems at this time including chest pain, shortness of breath, headache, blurry vision, neck pain, back pain, pain with urination, pain or tingling down the arms or legs have generalized numbness or weakness, fevers. Pain Scale: 8 - Related Data Home Medications Medication Instructions Recorded Confirmed Aspirin [Adult Low Dose Aspirin EC] 81 mg PO DAILY 10/26/15 06/11/17 Etonogestrel [Nexplanon] 68 mg SQ AD 10/26/15 06/11/17 metFORMIN [Glucophage] 1,000 mg PO BIDWM 10/26/15 06/11/17 clonazePAM [Klonopin] 0.5 mg PO HS 03/04/17 06/11/17 Dabigatran Etexilate Mesylate 150 mg PO BID 05/12/17 06/11/17 [Pradaxa] Flecainide 100 mg PO BID 05/12/17 06/11/17 Omeprazole [PriLOSEC] 40 mg PO DAILY 05/12/17 06/11/17 Atorvastatin Calcium [Lipitor] 20 mg PO HS 06/03/17 06/11/17 Sertraline [Zoloft] 300 mg PO DAILY 06/03/17 06/11/17 traZODone [TraZODone] 50 - 100 mg PO HS PRN 06/03/17 06/11/17 Previous Rx's Medication Instructions Recorded Albuterol Sulfate [Proair 2 puff IH Q4H PRN #1 02/08/17 Respiclick] Lisinopril [Zestril] 5 mg PO DAILY #30 02/08/17 Metoprolol [Lopressor] 25 mg PO BID 30 Days tablet 02/08/17 Cyclobenzaprine [Flexeril] 10 mg PO BID PRN #6 tablet 06/08/17 Lactobacillus [Culturelle] 1 each PO BID #60 cap.sprink 06/20/17 Lisinopril [Zestril] 5 mg PO DAILY tablet 06/20/17 Vancomycin Oral Soln [Vancocin] 125 mg PO QID #100 ml 06/20/17 metroNIDAZOLE [Flagyl] 500 mg PO TID 10 Days #30 tablet 06/20/17 Allergies Allergy/AdvReac Type Severity Reaction Status Date / Time No Known Allergies Allergy Verified 06/11/17 11:24 Review of Systems: 10 point review of systems done and negative unless otherwise stated in history of present illness. All systems ED: reviewed and negative except as stated. Review of Systems: As Per HPI Abdominal Pain PMH - Past Medical History Medical history: Reports: atrial fibrillation, COPD, CVA, diabetes, hyperlipidemia, hypertension, myocardial infarction, TIA Female Surgical History: Reports: , cholecystectomy, other SNACK BAR CASHIER history: Reports: no SNACK BAR CASHIER history Psychiatric history: Reports: anxiety, depression - Social History Smoking status: Never smoker Alcohol use: Reports: none Drug use: Reports: none Physical Exam - General Limitations: no limitations General appearance: alert - Head Head exam: atraumatic, normocephalic, normal inspection - Eye Eye exam: Present: normal appearance, PERRL, EOMI - ENT ENT exam: normal exam, normal oropharynx, mucous membranes moist - Neck Neck exam: Present: normal inspection, full ROM, trachea midline - Chest Chest inspection: Present: normal inspection, symmetric chest wall rise - Respiratory Respiratory exam: Present: normal lung sounds bilaterally - Cardiovascular Cardiovascular exam: Present: regular rate, normal rhythm, normal heart sounds - Abdominal Exam Abdominal exam: Present: soft, tenderness, normal bowel sounds. Absent: distention, guarding, rebound, rigidity Abdominal tenderness: Present: diffuse, mild - Extremities Exam Extremities exam: Present: normal inspection, full ROM. Absent: tenderness, pedal edema - Expanded Lower Extremity Exam Neurovascular/Tendon exam: Absent: motor deficit, sensory deficit, tendon deficit - Back Exam Back exam: Present: normal inspection, full ROM. Absent: tenderness, CVA tenderness (R), CVA tenderness (L) - Neurological Exam Neurological exam: Present: alert, oriented X3 - Skin Skin exam: Present: warm, dry, intact, normal color Course Course Narrative: 51-year-old female present to the ED for abdominal pain recently diagnosed with C. difficile and sent home. Still complaining of diarrhea and abdominal pain. We will get basic labs including CBC, CMP, lipase as well as troponin. We will also get a EKG. We will get a chest x-ray as well as blood cultures. We will start IV give patient IV fluids as well as Zofran and morphine for pain and nausea control. Most likely disposition will be admission. Vital Signs Temperature 97.5 F L 06/23/17 18:17 Pulse Rate 99 06/23/17 18:17 Respiratory Rate 18 06/23/17 18:17 Blood Pressure 134/72 06/23/17 18:17 O2 Sat by Pulse Oximetry 98 06/23/17 18:17 Temperature 97.5 F L 06/23/17 18:17 Pulse Rate 81 06/23/17 20:19 Respiratory Rate 16 06/23/17 20:19 Blood Pressure 114/77 06/23/17 20:19 O2 Sat by Pulse Oximetry 97 06/23/17 20:19 Oxygen Delivery Oxygen Delivery Room Air Abdominal Pain - MDM Narrative Medical decision making narrative: 51-year-old female presents to the emergency department complaining of abdominal pain and diarrhea. Patient was recently admitted to the hospital initially discharged 4 days ago for C. difficile. She was unable to give oral vancomycin as her insurance would not pay for his all she was taken with oral Flagyl. She said when she got home she continued to have abdominal pain as well as watery stools. He said it worsened until today where she was unable to handle it and what caused her to come in. We did get basic labs which were all normal she did not have a white count is actually higher at 8.5 then when she was in the hospital where was low. She had normal electrolytes. She did have an elevated lactate at 3.3 which she never had her previous hospitalization. Due to this we decided to get a CT of her abdomen and pelvis with contrast. Patient good creatinine were able to do it. This only showed mild enteritis and a uterine cyst but recommended follow-up. Otherwise there was no surgical processes. Patient also had a negative troponin as well as a normal EKG here. We did give patient IV fluids as well as Zofran. Did give her 8 mg of morphine for pain control. This did take care of her pain fairly well. We did give patient IV Flagyl and oral vancomycin for the C. difficile. To the recent C. difficile we felt that admission to the hospital was necessary and the patient agreed. I spoke with the hospitalist Dr. Gudino who agreed to admit the patient to their service. Patient was successfully admitted to their service and she is in stable condition at this time. Abdomen/Pelvis CT 06/23/17 19:44 IMPRESSION: 1. Liquid distending multiple small bowel loops, potentially due to low-grade enteritis. 2. Liquid stool in the cecum, corresponding with the reported diarrhea. However, moderate solid stool is noted throughout the remainder of the colon. 3. Increased size of a 5.7 cm x 5.3 cm left ovarian cystic lesion. Recommend follow-up as per the prior sonogram. D/ / Virgil Garcias MD / Virgil Garcias MD Interpreting Provider: Virgil Garcias MD - Medical Records Medical records reviewed: Yes I reviewed the patient's medical records. - Lab Data Lab results reviewed: Yes I reviewed the patient's lab results. Result diagrams: 06/23/17 19:00 06/23/17 19:00 Lab Results 06/23/17 06/23/1717 Range/Units 18:39 19:00 19:00 WBC 8.5 (4.3-11.1) K/mcL RBC 4.79 (3.82-4.97) M/mcL Hgb 11.9 D (11.5-15.4) g/dL Hct 38.0 (35.3-44.9) % MCV 79.3 L (83.0-100.0) fL MCH 24.8 L (28.0-33.3) pg MCHC 31.3 L (31.6-35.5) g/dL RDW 16.1 H (11.5-14.5) % Plt Count 302 (140-400) K/mcL MPV 9.6 (9.4-12.4) fL Immature Gran % 0.4 (0-4) % Seg Neutrophils % 69.6 % Lymphocytes % 21.9 % Monocytes % 5.3 % Eosinophils % 2.3 % Basophils % 0.5 % Neutrophils # 6.0 (1.6-8.9) K/mcL Lymphocytes # 1.9 (0.6-4.6) K/mcL Monocytes # 0.5 (0.0-1.3) K/mcL Eosinophils # 0.2 (0.0-0.6) K/mcL Basophils # 0.0 (0.0-0.2) K/mcL Sodium 138 (136-145) mEq/L Potassium 3.7 (3.5-4.5) mEq/L Chloride 104 (98-109) mEq/L Carbon Dioxide 21 (19-29) mEq/L BUN 16 (7-20) mg/dL Creatinine 0.80 (0.57-1.11) mg/dL Est GFR ( Amer) > 60 (> 60) Est GFR (Non-Af Amer) > 60 (> 60) BUN/Creatinine Ratio 20 (6-26) Glucose 264 H (70-99) mg/dL Calculated Osmolality 296 (280-300) Lactic Acid (0.5-2.2) mmol/L Calcium 9.9 (8.6-10.8) mg/dL Total Bilirubin 0.5 (0.2-1.2) mg/dL Direct Bilirubin 0.2 (0.0-0.5) mg/dL Indirect Bilirubin 0.3 (0.0-1.2) mg/dL AST 42 H (5-34) Units/L ALT 39 (0-55) Units/L Alkaline Phosphatase 113 (38-126) Units/L Troponin I (0-0.03) ng/mL Serum Total Protein 7.4 (6.0-8.3) g/dL Albumin 3.8 (3.5-5.0) g/dL Globulin 3.6 H (2.4-3.5) g/dL Albumin/Globulin Ratio 1.1 (1.1-2.2) Lipase 40 (8-78) Units/L Urine Color Yellow (Yellow) Urine Clarity Clear (Clear) Urine pH 6.0 (5.0-8.0) pH Units Ur Specific Whitetail 1.022 (1.010-1.025) Urine Protein Negative (Neg-Trace) mg/dL Urine Glucose (UA) 250 H (Normal) mg/dL Urine Ketones Negative (Negative) mg/dL Urine Blood Trace H (Negative) Urine Nitrite Negative (Negative) Urine Bilirubin Negative (Negative) Urine Urobilinogen Normal (Normal) mg/dL Ur Leukocyte Esterase Negative (Negative) Urine Microscopic RBC 0-3 (0-3) per hpf Urine Microscopic WBC 0-3 (0-3) per hpf Ur Squamous Epith Cells Many H (None-Few) per lpf Urine Bacteria None Seen (None-Few) per hpf Hyaline Casts None Seen (None-Few) per lpf Ur Culture Indicated? NO (NO) 06/23/17 06/23/17 Range/Units 19:00 19:00 WBC (4.3-11.1) K/mcL RBC (3.82-4.97) M/mcL Hgb (11.5-15.4) g/dL Hct (35.3-44.9) % MCV (83.0-100.0) fL MCH (28.0-33.3) pg MCHC (31.6-35.5) g/dL RDW (11.5-14.5) % Plt Count (140-400) K/mcL MPV (9.4-12.4) fL Immature Gran % (0-4) % Seg Neutrophils % % Lymphocytes % % Monocytes % % Eosinophils % % Basophils % % Neutrophils # (1.6-8.9) K/mcL Lymphocytes # (0.6-4.6) K/mcL Monocytes # (0.0-1.3) K/mcL Eosinophils # (0.0-0.6) K/mcL Basophils # (0.0-0.2) K/mcL Sodium (136-145) mEq/L Potassium (3.5-4.5) mEq/L Chloride (98-109) mEq/L Carbon Dioxide (19-29) mEq/L BUN (7-20) mg/dL Creatinine (0.57-1.11) mg/dL Est GFR ( Amer) (> 60) Est GFR (Non-Af Amer) (> 60) BUN/Creatinine Ratio (6-26) Glucose (70-99) mg/dL Calculated Osmolality (280-300) Lactic Acid 3.3 H (0.5-2.2) mmol/L Calcium (8.6-10.8) mg/dL Total Bilirubin (0.2-1.2) mg/dL Direct Bilirubin (0.0-0.5) mg/dL Indirect Bilirubin (0.0-1.2) mg/dL AST (5-34) Units/L ALT (0-55) Units/L Alkaline Phosphatase (38-126) Units/L Troponin I 0.00 (0-0.03) ng/mL Serum Total Protein (6.0-8.3) g/dL Albumin (3.5-5.0) g/dL Globulin (2.4-3.5) g/dL Albumin/Globulin Ratio (1.1-2.2) Lipase (8-78) Units/L Urine Color (Yellow) Urine Clarity (Clear) Urine pH (5.0-8.0) pH Units Ur Specific [place] (1.010-1.025) Urine Protein (Neg-Trace) mg/dL Urine Glucose (UA) (Normal) mg/dL Urine Ketones (Negative) mg/dL Urine Blood (Negative) Urine Nitrite (Negative) Urine Bilirubin (Negative) Urine Urobilinogen (Normal) mg/dL Ur Leukocyte Esterase (Negative) Urine Microscopic RBC (0-3) per hpf Urine Microscopic WBC (0-3) per hpf Ur Squamous Epith Cells (None-Few) per lpf Urine Bacteria (None-Few) per hpf Hyaline Casts (None-Few) per lpf Ur Culture Indicated? (NO) - Radiology Data Radiology results reviewed: Yes I reviewed the patient's radiology results. - EKG Data EKG attestation: Yes I reviewed and interpreted this EKG. EKG results narrative: EKG done at 19 100 units myself and attending shows normal sinus rhythm a rate of 84, NE 140, QRS 105, QTC 423 with a normal axis. No signs of ST changes, T- wave abnormalities, heart strain or hypertrophy, heart block, WPW/Brugada syndrome. There is no old EKG to compare at this time. Attestation Statement - Attestation Attestation: I, Marco Antonio Higgins, examined this patient and my medical decision-making was reviewed with the ROAD GRADER OPERATOR/PA/Advanced Practice Nurse/Resident Physician. I agree with the documented findings, disposition and treatment plan as described except to the extent set forth below. 51-year-old female presents emergency Department with concerns of epigastric abdominal pain radiating to the bilateral upper quadrants. Patient states she has a recent history of C. difficile, was evaluated and treated in the hospital for multiple days. She was discharged with oral vancomycin and Flagyl however she was unable to afford the oral vancomycin and therefore did not take her medications. Patient states her symptoms have returned exactly similar to what they were before. Patient denies fever, chills, vomiting, chest pain, shortness of breath, palpitations. She states her abdomen feels distended and it is tender to palpation on my exam. A laboratory testing the patient does not have a leukocytosis. She does however have lactic acid elevation which was not present on previous laboratory evaluations. CT is pending at this time however antibiotics have already been started for likely colitis and patient will be admitted to the hospital for further care and evaluation. We will follow-up on CT results prior to admission to the hospital to rule out surgical pathology.
[2017-06-23 19:28] LABS: Alanine Aminotransferase 39 Units/L (0-55); Albumin 3.8 g/dL (3.5-5.0); Albumin/Globulin Ratio 1.1 (1.1-2.2); Alkaline Phosphatase 113 Units/L (38-126); Aspartate Amino Transferase 42 Units/L (5-34); BUN/Creatinine Ratio 20 (6-26); Bilirubin,Direct 0.2 mg/dL (0.0-0.5); Bilirubin,Indirect 0.3 mg/dL (0.0-1.2); Bilirubin,Total 0.5 mg/dL (0.2-1.2); Blood Urea Nitrogen 16 mg/dL (7-20); Calcium 9.9 mg/dL (8.6-10.8); Carbon Dioxide 21 mEq/L (19-29); Chloride 104 mEq/L (98-109); Globulin 3.6 g/dL (2.4-3.5); Glucose 264 mg/dL (70-99); Lipase 40 Units/L (8-78); Osmolality,Calculated 296 (280-300); Potassium 3.7 mEq/L (3.5-4.5); Sodium 138 mEq/L (136-145); Total Protein 7.4 g/dL (6.0-8.3); eGFR For African Americans > 60 (> 60); eGFR For Non-African Americans > 60 (> 60)
[2017-06-23] MEDS ORDERED: MetroNIDAZOLE 500 MG/100 ML 500 MG/100 ML BAG IVPB ONE (19:54)
[2017-06-23] MEDS ORDERED: Vancomycin Oral Soln 250 MG/5 ML UDC PO ONE (19:55)
[2017-06-24] MEDS ORDERED: Naloxone 0.4 MG/ML INJ IVP PRN (00:59)
[2017-06-24] MEDS ORDERED: Mag Hydrox/Al Hydrox/Simeth 30 ML UDC PO PRN (00:59)
[2017-06-24] MEDS ORDERED: Acetaminophen 325 MG TABLET PO PRN (00:59)
[2017-06-24] MEDS ORDERED: traZODone 50 MG TABLET PO PRN (01:03)
--- NOTE | 2017-06-24 01:12 | Internal Med History&Physical ---
Date of Encounter: 06/24/17 Time of Encounter: 11:30 Assessment and Plan (1) Diarrhea associated with pseudomembranous colitis Current visit: Yes Status: Acute C. difficile colitis by history. CAT scan showed antritis and liquidy stools. *Oral metronidazole and vancomycin IV fluids with normal saline and repeat CBC and electrolytes (2) Diabetes mellitus, type II, insulin dependent Current visit: Yes Status: Chronic Accu-Chek 4 times a day with sliding scale coverage daily (3) Paroxysmal atrial fibrillation Current visit: Yes Status: Chronic 8 controlled continue Pradaxa (4) COPD (chronic obstructive pulmonary disease) Current visit: Yes Status: Chronic Continue inhalers stable at this time Qualifiers: COPD type: chronic bronchitis Chronic bronchitis type: unspecified Qualified Code(s): J42 - Unspecified chronic bronchitis Internal Medicine - H&P: HPI Chief complaint: Abdominal pain and diarrhea Admitted From: Home Plans for Post Hospital Care: Home History of present illness: Patient was seen on June 23. Ms. Jacome is a 51 year old female with past medical history significant for diabetes hypertension dyslipidemia coronary artery disease proximal atrial fibrillation TIA COPD GERD. Patient was recently discharged from hospital after being diagnosed with C. difficile colitis and was advised to take vancomycin and metronidazole orally. Her insurance refuses vancomycin. She has returned with similar complaints of generalized abdominal pain nausea and vomiting. CT abdomen done in ER showed antritis and some liquid stool. Interestingly her electrolytes are quite unremarkable. She is quite vague about her abdominal pain and could not tell me the exact nature of it or hard as it is spread or aggravating or relieving factor. She is requesting if she could be given some pain medication. No fever chills headache neck pain and dizziness syncope dysuria urgency frequency hematuria hematochezia or hematemesis melena or any other symptoms otherwise. Past Med Surg Social Fam HX - Past Medical History Medical history: atrial fibrillation, COPD, CVA, diabetes, hyperlipidemia, hypertension, myocardial infarction Psychiatric history: anxiety, depression - Past Surgical History Surgical History: , cholecystectomy - Social History Smoking Status: Never smoker Smokeless Tobacco Status: No Alcohol use: none Drug use: none - Family History Mother Living Status: Cause of : Lung Cancer Hx Family Cardiac Disorders: Yes Hx Family Respiratory Disorders: Yes (copd) Hx Family Cancer: Yes (lung cancer) Hx Family Endocrine Disorder: Yes (DM type II) Father Adopted: No Family Member Ethnicity: Non- Living Status: Age at : 62 Cause of : Aortic Anerysm Hx Family Cardiac Disorders: Yes Hx Family Respiratory Disorders: Yes Hx Family Cancer: Yes (LUNG) Hx Family GI Disorders: No Hx Family Endocrine Disorder: Yes (DM) Hx Family Neuromuscular Disorders: No Hx Family Neurologic Disorders: No Hx Family HEENT Disorders: No Hx Family Autoimmune Disorders: No Internal Medicine - H&P: Meds Aspirin [Adult Low Dose Aspirin EC] 81 mg PO DAILY 10/26/15 [History] Etonogestrel [Nexplanon] 68 mg SQ AD 10/26/15 [History] metFORMIN [Glucophage] 1,000 mg PO BIDWM 10/26/15 [History] Albuterol Sulfate [Proair Respiclick] 2 puff IH Q4H PRN #1 02/08/17 [Rx] Lisinopril [Zestril] 5 mg PO DAILY #30 02/08/17 [Rx] Metoprolol [Lopressor] 25 mg PO BID 30 Days tablet 02/08/17 [Rx] clonazePAM [Klonopin] 0.5 mg PO HS 03/04/17 [History] Dabigatran Etexilate Mesylate [Pradaxa] 150 mg PO BID 05/12/17 [History] Flecainide 100 mg PO BID 05/12/17 [History] Omeprazole [PriLOSEC] 40 mg PO DAILY 05/12/17 [History] Atorvastatin Calcium [Lipitor] 20 mg PO HS 06/03/17 [History] Sertraline [Zoloft] 300 mg PO DAILY 06/03/17 [History] traZODone [TraZODone] 50 - 100 mg PO HS PRN 06/03/17 [History] Cyclobenzaprine [Flexeril] 10 mg PO BID PRN #6 tablet 06/08/17 [Rx] Lactobacillus [Culturelle] 1 each PO BID #60 cap.sprink 06/20/17 [Rx] Lisinopril [Zestril] 5 mg PO DAILY tablet 06/20/17 [Rx] Vancomycin Oral Soln [Vancocin] 125 mg PO QID #100 ml 06/20/17 [Rx] metroNIDAZOLE [Flagyl] 500 mg PO TID 10 Days #30 tablet 06/20/17 [Rx] 3 Allergy/AdvReac Type Severity Reaction Status Date / Time No Known Allergies Allergy Verified 06/11/17 11:24 All Systems PM: A 10-system review of systems was performed and is negative for pertinent findings except as documented above in the HPI. - Constitutional Constitutional: no chills, no fever(s), no night sweats - EENT Eyes: no change in vision, no discharge, no pain, no photophobia Ears: no ear discharge, no ear pain, no tinnitus Nose, mouth and throat: no dysphagia, no nasal discharge, no neck pain, no sore throat - Cardiovascular Cardiovascular ROS IM: no chest pain, no diaphoresis, no dyspnea, no lightheadedness, no palpitations, no syncope - Respiratory Respiratory: no cough, no dyspnea, no wheezing, no excessive phlegm production - Gastrointestinal Gastrointestinal: abdominal pain, diarrhea, no hematemesis, no hematochezia, no melena, no nausea, no vomiting - Genitourinary Genitourinary: no change in urinary stream, no dysuria, no flank pain, no hematuria - Musculoskeletal Musculoskeletal ROS IM: no numbness, no tingling - Integumentary Integumentary IM: no rash, no unusual bruising - Neurological Neurological ROS: no confusion, no convulsions, no focal weakness, no numbness, no tingling, no tremor(s) - Hematologic/Lymphatic Hematologic/Lymphatic: no easy bruising - Constitutional Vitals: Temp Pulse Resp BP Pulse Ox 98.1 F 73 16 113/68 95 06/24/17 00:35 06/24/17 00:35 06/24/17 00:35 06/24/17 00:35 06/24/17 00:35 General appearance: Present: A&O X 3, no acute distress, answers questions appropriately - Head Head exam: Present: atraumatic, normocephalic - Eye Eye exam: Present: PERRL, conjuntiva pink, sclera anicteric Pupils: Present: PERRL - Neck Neck exam general surgery: Present: supple, trachea midline. Absent: lymphadenopathy - Respiratory Respiratory exam: Present: CTAB. Absent: accessory muscle use, rales, rhonchi, wheezes - Cardiovascular Cardiovascular exam: Present: RRR, +S1, +S2. Absent: diastolic murmur, gallop, rubs, systolic murmur - GI/Abdominal GI/Abdominal exam: Present: diminished bowel sounds, normal bowel sounds, soft, tenderness, no peritoneal signs. Absent: distended - Extremities Exam Extremities exam: Present: warm, radial pulses palpable and symmetrical. Absent : calf tenderness, cyanotic, pedal edema - Neurological Exam Neurological exam: Present: CN II-XII intact, oriented X3, no focal deficits. Absent: pronater drift, facial droop, speech deficit - Skin Skin exam: Present: dry, intact Internal Med - H&P Results - Labs CBC & Chem 7: 06/23/17 19:00 06/23/17 19:00
[2017-06-24] MEDS: metroNIDAZOLE 250 MG TABLET PO SCH ×5 (01:58→21:39)
[2017-06-24] MEDS: Lactobacillus 1 EACH CAP.SPRINK PO SCH ×3 (01:59→21:38)
[2017-06-24] MEDS: *HR* Morphine 2 MG/ML SYRINGE IVP PRN ×5 (01:59→21:37)
[2017-06-24] MEDS: Vancomycin Oral Soln 250 MG/5 ML UDC PO SCH ×5 (01:59→21:41)
[2017-06-24] MEDS: clonazePAM 0.5 MG TABLET PO SCH ×2 (01:59→21:39)
[2017-06-24 05:43] LABS: Basophils % 0.6 %; Eosinophils # 0.2 K/mcL (0.0-0.6); Eosinophils % 2.8 %; Hematocrit 32.9 % (35.3-44.9); Immature Granulocytes % 0.3 % (0-4); Lymphocytes # 1.9 K/mcL (0.6-4.6); Lymphocytes % 29.8 %; Mean Corpuscular Hemoglobin 24.6 pg (28.0-33.3); Mean Corpuscular Volume 79.3 fL (83.0-100.0); Monocytes # 0.4 K/mcL (0.0-1.3); Monocytes % 5.6 %; Platelet Count 258 K/mcL (140-400); Red Blood Count 4.15 M/mcL (3.82-4.97); Segmented Neutrophils % 60.9 %
[2017-06-24 05:48] LABS: Hemoglobin 10.2 g/dL (11.5-15.4)
[2017-06-24 06:07] LABS: BUN/Creatinine Ratio 15 (6-26); Blood Urea Nitrogen 9 mg/dL (7-20); Calcium 8.5 mg/dL (8.6-10.8); Carbon Dioxide 20 mEq/L (19-29); Chloride 109 mEq/L (98-109); Glucose 149 mg/dL (70-99); Osmolality,Calculated 289 (280-300); Potassium 3.7 mEq/L (3.5-4.5); Sodium 139 mEq/L (136-145); eGFR For African Americans > 60 (> 60); eGFR For Non-African Americans > 60 (> 60)
[2017-06-24] MEDS: Aspirin Enteric Coated 81 MG Tablet PO SCH (07:27)
[2017-06-24] MEDS: *HR* Dabigatran 150 MG CAPSULE PO SCH ×2 (07:28→21:40)
--- NOTE | 2017-06-24 14:06 | OB/GYN Consult Note ---
Date of Encounter: 06/25/17 Time of Encounter: 14:03 Assessment and Plan (1) Ovarian cyst Current Visit: Yes Status: Acute REGENERATOR OPERATOR was consulted due to the patient was found to have a left ovarian cyst CT Scan from 06/23/17 IMPRESSION: 1. Liquid distending multiple small bowel loops, potentially due to low-grade enteritis. 2. Liquid stool in the cecum, corresponding with the reported diarrhea. However, moderate solid stool is noted throughout the remainder of the colon. 3. Increased size of a 5.7 cm x 5.3 cm left ovarian cystic lesion. Recommend follow-up as per the prior sonogram. US from 06/19/17 Impression: There is a 5.5 cm simple appearing cyst within the left ovary. 1 year follow-up recommended. Endometrial stripe measure 1.3 cm. If the patient is postmenopausal this is thickened. Clinical correlation with menopausal status recommended. Normal Doppler flow within the ovaries. Case discussed with and CT and US reports reviewed [facility] Dr. Bob US showed normal doppler flow to the ovaries. There is no evidence for an ovarian torsion at this time. This can be managed on an outpatient basis. Patient can follow up as an outpatient in the REGENERATOR OPERATOR office with Dr. Bob Patient will also need to discuss having her Nexplanon removed as an outpatient due to it being placed 11/21/12. REGENERATOR OPERATOR will sign off of the case at this time. Qualifiers: Laterality: left Qualified Code(s): N83.202 - Unspecified ovarian cyst, left side (2) Diarrhea associated with pseudomembranous colitis Current Visit: Yes Status: Acute Currently being managed by the primary service (3) Diabetes mellitus, type II, insulin dependent Current Visit: Yes Status: Chronic Currently being managed by the primary service. (4) Paroxysmal atrial fibrillation Current Visit: Yes Status: Chronic Currently being managed by the primary service (5) COPD (chronic obstructive pulmonary disease) Current Visit: Yes Status: Chronic Currently being managed by the primary service. Qualifiers: COPD type: chronic bronchitis Chronic bronchitis type: unspecified Qualified Code(s): J42 - Unspecified chronic bronchitis History of Present Illness Consult date: 06/24/17 Requesting physician: Ale Rodriguez Reason for consult: ovarian cyst Chief complaint: Abdominal pain History of present illness: Patient is a 51 year old female that was admitted to the hospital for abdominal pain and C Diff. REGENERATOR OPERATOR was consulted due to CT findings of a left ovarian cyst. She states that she has been diagnosed with C diff. Reports multiple watery, foul smelling, nonbloody stools. She states that she has been having the diarrhea and abdominal pain for about the last 8 months. Patient states that she has not had a period in a couple of years but started spotting after she had a transvaginal ultrasound. Has had diffuse abdominal pain that has been progressively worsening and rates her pain as a 10/10. Patient states that she has a nexplanon that was placed on 11/21/12. Past Med Surg Social Fam HX - Past Medical History Medical history: atrial fibrillation, COPD, CVA, diabetes, hyperlipidemia, hypertension, myocardial infarction Psychiatric history: anxiety, depression - Past Surgical History Surgical History: , cholecystectomy - Social History Smoking Status: Never smoker Smokeless Tobacco Status: No Alcohol use: none Drug use: none - Family History Mother Living Status: Cause of : Lung Cancer Hx Family Cardiac Disorders: Yes Hx Family Respiratory Disorders: Yes (copd) Hx Family Cancer: Yes (lung cancer) Hx Family Endocrine Disorder: Yes (DM type II) Father Adopted: No Family Member Ethnicity: Non- Living Status: Age at : 62 Cause of : Aortic Anerysm Hx Family Cardiac Disorders: Yes Hx Family Respiratory Disorders: Yes Hx Family Cancer: Yes (LUNG) Hx Family GI Disorders: No Hx Family Endocrine Disorder: Yes (DM) Hx Family Neuromuscular Disorders: No Hx Family Neurologic Disorders: No Hx Family HEENT Disorders: No Hx Family Autoimmune Disorders: No Medications and Allergies Aspirin [Adult Low Dose Aspirin EC] 81 mg PO DAILY 10/26/15 [History] Etonogestrel [Nexplanon] 68 mg SQ AD 10/26/15 [History] metFORMIN [Glucophage] 1,000 mg PO BIDWM 10/26/15 [History] Albuterol Sulfate [Proair Respiclick] 2 puff IH Q4H PRN #1 02/08/17 [Rx] clonazePAM [Klonopin] 0.5 mg PO HS 03/04/17 [History] Dabigatran Etexilate Mesylate [Pradaxa] 150 mg PO BID 05/12/17 [History] Flecainide 100 mg PO BID 05/12/17 [History] Omeprazole [PriLOSEC] 40 mg PO DAILY 05/12/17 [History] Atorvastatin Calcium [Lipitor] 20 mg PO HS 06/03/17 [History] Sertraline [Zoloft] 300 mg PO DAILY 06/03/17 [History] traZODone [TraZODone] 50 - 100 mg PO HS PRN 06/03/17 [History] Cyclobenzaprine [Flexeril] 10 mg PO BID PRN #6 tablet 06/08/17 [Rx] Lactobacillus [Culturelle] 1 each PO BID #60 cap.sprink 06/20/17 [Rx] Lisinopril [Zestril] 5 mg PO DAILY tablet 06/20/17 [Rx] metroNIDAZOLE [Flagyl] 500 mg PO TID 10 Days #30 tablet 06/20/17 [Rx] Metoprolol [Lopressor] 12.5 mg PO BID 06/24/17 [History] 3 Allergy/AdvReac Type Severity Reaction Status Date / Time No Known Allergies Allergy Verified 06/11/17 11:24 Review of Systems All Systems: reviewed and no additional remarkable complaints except as stated Nose, mouth and throat: dry mouth Gastrointestinal: abdominal pain, diarrhea, nausea, no hematochezia, no melena, no vomiting Genitourinary Female: other (Vaginal Spotting since Transvaginal Ultrasound) Menstruation: post menopausal Exam - Vital Signs Vital signs: Initial Vital Signs Temp Pulse Resp BP Pulse Ox 97.5 F L 99 18 134/72 98 06/23/17 18:17 06/23/17 18:17 06/23/17 18:17 06/23/17 18:17 06/23/17 18:17 - Constitutional Constitutional: well developed, well nourished, no acute distress, average body habitus - HEENT HEENT: Normocephaly, Mucus Membranes Dry - Neck Neck exam: full ROM, normal inspection, supple - Lungs Respiratory exam: CTAB - Cardiovascular Cardiovascular exam: RRR, +S1, +S2 - Abdomen Abdomen: Present: bowel sounds normal, diffuse tenderness (No rebound) - Extremities Extremities exam: full ROM, normal capillary refill, normal inspection Results Result Diagrams: 06/25/17 04:30 06/25/17 04:30 Abnormal lab results Hgb 10.2 g/dL (11.5-15.4) L D 12/11/17 05:34 Hct 32.9 % (35.3-44.9) L 06/24/17 05:34 MCV 79.3 fL (83.0-100.0) L 06/24/17 05:34 MCH 24.6 pg (28.0-33.3) L 06/24/17 05:34 MCHC 31.0 g/dL (31.6-35.5) L 06/24/17 05:34 RDW 16.0 % (11.5-14.5) H 06/24/17 05:34 Glucose 149 mg/dL (70-99) H 06/24/17 05:34 Lactic Acid 3.3 mmol/L (0.5-2.2) H 06/23/17 19:00 Calcium 8.5 mg/dL (8.6-10.8) L 06/24/17 05:34 AST 42 Units/L (5-34) H 06/23/17 19:00 Globulin 3.6 g/dL (2.4-3.5) H 06/23/17 19:00 Urine Glucose (UA) 250 mg/dL (Normal) H 06/23/17 18:39 Urine Blood Trace (Negative) H 06/23/17 18:39 Ur Squamous Epith Cells Many per lpf (None-Few) H 06/23/17 18:39 All other labs normal. Consult Discharge Plan - Plan Referrals: Joanne Paez MD [Primary Care Provider] -
--- NOTE | 2017-06-24 15:44 | Electrocardiograph Report ---
[address] [address] Test Date: 2017-06-23 Pat Name: Christie Jacome Department: 103 Room: [facility] Gender: F Bail Agent: LOIS : 1965 Requested By: Marco Antonio Higgins Order Number: [id number] Reading MD: Marco Antonio Brooks Measurements Intervals [place] Rate: 84 P: 67 MI: 140 QRS: 26 QRSD: 105 T: 16 QT: 382 QTc: 423 Interpretive Statements SINUS RHYTHM NONSPECIFIC T-WAVE ABNORMALITY Electronically Signed On 06-24-2017 15:43:00 EST by Marco Antonio Brooks
--- NOTE | 2017-06-24 17:14 | Internal Med Progress Note ---
Date of Encounter: 06/24/17 Time of Encounter: 09:00 - Assessment and plan (1) Obesity (BMI 30-39.9) Current Visit: No Status: Chronic Assessment and plan: Needs lifestyle modification (2) Paroxysmal atrial fibrillation Current Visit: Yes Status: Chronic Assessment and plan: Heart rate is well controlled. On pradaxa for AC (3) Diabetes mellitus Current Visit: No Status: Chronic Assessment and plan: Please patient on sliding scale coverage. Diabetic diet Qualifiers: Diabetes mellitus type: type 2 Diabetes mellitus complication status: without complication Diabetes mellitus termination clerk insulin use: with mcfp use Qualified Code(s): E11.9 - Type 2 diabetes mellitus without complications ; Z79.4 - alf (current) use of insulin; Z79.4 - long term care phlebotomist (current) use of insulin; Z79.4 - alf (current) use of insulin; Z79.4 - long term care phlebotomist ( current) use of insulin (4) DVT prophylaxis Current Visit: No Status: Acute Assessment and plan: Patient is on pradaxa (5) HTN (hypertension) Current Visit: No Status: Chronic Assessment and plan: Continue home medications Qualifiers: Hypertension type: essential hypertension Qualified Code(s): I10 - Essential (primary) hypertension (6) COPD (chronic obstructive pulmonary disease) Current Visit: Yes Status: Chronic Assessment and plan: Stable, no signs of exacerbation. Continue home medications Qualifiers: COPD type: chronic bronchitis Chronic bronchitis type: unspecified Qualified Code(s): J42 - Unspecified chronic bronchitis (7) C. difficile colitis Current Visit: Yes Status: Acute Assessment and plan: We will continue by mouth Flagyl and vancomycin. CT abdomen shows no signs of megacolon. (8) Ovarian cyst Current Visit: Yes Status: Acute Assessment and plan: TRUCK LEASING MANAGER consult appreciated. Patient will follow up with TRUCK LEASING MANAGER as outpatient. Qualifiers: Laterality: left Qualified Code(s): N83.202 - Unspecified ovarian cyst, left side - Time Spent With Patient 25 - 35 minutes - Subjective Interval history: Patient was seen and examined. Complained of abdominal pain. Complaining of 7 bowel movement over last 24 hours, watery. Vitals are stable. We will continue Flagyl and vancomycin by mouth for C. difficile colitis. TRUCK LEASING MANAGER consult for ovarian cyst is highly appreciated. - Constitutional Vitals: Temp Pulse Resp BP Pulse Ox 97.8 F 61 16 125/56 97 06/24/17 15:50 06/24/17 15:50 06/24/17 15:50 06/24/17 15:50 06/24/17 15:50 General appearance: Present: A&O X 3, no acute distress, answers questions appropriately - Head Head exam: Present: atraumatic, normocephalic - Eye Eye exam: Present: PERRL, conjuntiva pink, sclera anicteric Pupils: Present: PERRL - Neck Neck exam general surgery: Present: supple, trachea midline. Absent: lymphadenopathy - Respiratory Respiratory exam: Present: CTAB. Absent: accessory muscle use, rales, rhonchi, wheezes - Cardiovascular Cardiovascular exam: Present: RRR, +S1, +S2. Absent: diastolic murmur, gallop, rubs, systolic murmur - GI/Abdominal GI/Abdominal exam: Present: normal bowel sounds, soft, tenderness (Tenderness in 4Q, without rebound or guarding), no peritoneal signs. Absent: distended - Extremities Exam Extremities exam: Present: warm, radial pulses palpable and symmetrical. Absent : calf tenderness, cyanotic, pedal edema - Neurological Exam Neurological exam: Present: CN II-XII intact, oriented X3, no focal deficits. Absent: pronater drift, facial droop, speech deficit - Skin Skin exam: Present: dry, intact Internal Medicine: Result - Labs CBC & Chem 7: 06/24/17 05:34 06/24/17 05:34 Labs: Short CBC 06/24/17 Range/Units 05:34 WBC 6.5 (4.3-11.1) K/mcL Hgb 10.2 L D (11.5-15.4) g/dL Hct 32.9 L (35.3-44.9) % Plt Count 258 (140-400) K/mcL Neutrophils # 4.0 (1.6-8.9) K/mcL BMP 06/24/17 05:34 Sodium 139 Potassium 3.7 Chloride 109 Carbon Dioxide 20 BUN 9 Creatinine 0.60 Glucose 149 H Calcium 8.5 L Consult Discharge Plan - Plan Referrals: Joanne Paez MD [Primary Care Provider] -
[2017-06-24] MEDS ORDERED: D5% in Water 1,000 ML IVC PRN (17:17)
[2017-06-24] MEDS ORDERED: *HR* Dextrose 50 % in Water (Syg) 50 ML SYRINGE IVP PRN (17:17)
[2017-06-24] MEDS ORDERED: Dextrose Gel 15 GM PO PRN ×2 (17:17)
[2017-06-24] MEDS: Ondansetron 4 MG/2 ML VIAL IVP PRN (21:37)
[2017-06-24] MEDS: Famotidine 20 MG TABLET PO SCH (21:39)
[2017-06-24] MEDS: Insulin LISPRO 300 UNITS/3 ML VIAL SQ SCH (21:40)
[2017-06-24] MEDS ORDERED: Hydrocortisone Acetate 25 MG RECTAL SUPPOSITORY RC PRN (22:23)
[2017-06-25] MEDS: *HR* Morphine 2 MG/ML SYRINGE IVP PRN ×6 (01:04→20:38)
[2017-06-25 05:15] LABS: Basophils # 0.1 K/mcL (0.0-0.2); Basophils % 0.7 %; Eosinophils # 0.3 K/mcL (0.0-0.6); Eosinophils % 3.7 %; Hematocrit 36.4 % (35.3-44.9); Hemoglobin 11.1 g/dL (11.5-15.4); Immature Granulocytes % 0.4 % (0-4); Lymphocytes # 1.7 K/mcL (0.6-4.6); Lymphocytes % 23.8 %; Mean Corpuscular HGB Conc 30.5 g/dL (31.6-35.5); Mean Corpuscular Hemoglobin 24.4 pg (28.0-33.3); Mean Corpuscular Volume 80.2 fL (83.0-100.0); Mean Platelet Volume 9.9 fL (9.4-12.4); Monocytes # 0.3 K/mcL (0.0-1.3); Monocytes % 4.4 %; Neutrophils # 4.8 K/mcL (1.6-8.9); Platelet Count 279 K/mcL (140-400); Red Blood Count 4.54 M/mcL (3.82-4.97); Red Cell Distribution Width 15.6 % (11.5-14.5)
[2017-06-25 05:32] LABS: BUN/Creatinine Ratio 10 (6-26); Blood Urea Nitrogen 7 mg/dL (7-20); Calcium 9.3 mg/dL (8.6-10.8); Carbon Dioxide 25 mEq/L (19-29); Chloride 104 mEq/L (98-109); Glucose 213 mg/dL (70-99); Osmolality,Calculated 288 (280-300); Potassium 4.1 mEq/L (3.5-4.5); Sodium 137 mEq/L (136-145); eGFR For African Americans > 60 (> 60); eGFR For Non-African Americans > 60 (> 60)
[2017-06-25] MEDS: Insulin LISPRO 300 UNITS/3 ML VIAL SQ SCH ×4 (07:51→20:37)
[2017-06-25] MEDS: Vancomycin Oral Soln 250 MG/5 ML UDC PO SCH ×4 (07:51→20:36)
[2017-06-25] MEDS: *HR* Dabigatran 150 MG CAPSULE PO SCH ×2 (07:52→20:35)
[2017-06-25] MEDS: metroNIDAZOLE 250 MG TABLET PO SCH ×2 (07:52→12:18)
[2017-06-25] MEDS: Aspirin Enteric Coated 81 MG Tablet PO SCH (07:52)
[2017-06-25] MEDS: Famotidine 20 MG TABLET PO SCH ×2 (07:53→20:34)
[2017-06-25] MEDS: Lactobacillus 1 EACH CAP.SPRINK PO SCH ×2 (07:53→20:34)
[2017-06-25] MEDS: Ondansetron 4 MG/2 ML VIAL IVP PRN (12:17)
[2017-06-25] MEDS: *HR* OxyCODONE/APAP 5/325 TABLET PO PRN ×2 (17:29→23:20)
--- NOTE | 2017-06-25 18:04 | Internal Med Progress Note ---
Date of Encounter: 06/25/17 Time of Encounter: 14:30 - Assessment and plan (1) C. difficile colitis Current Visit: Yes Status: Acute Assessment and plan: First episode, recently treated and discharged on oral vancomycin, which she could not afford, prompting readmission. Continues to have diffuse abdominal cramps and watery diarrhea. Hold Flagyl and continue by mouth vancomycin at this time. Supportive care with when necessary antiemetics, noted to be on IV morphine for pain control, we will add oral Percocet. Monitor and replete electrolytes. No fever or leukocytosis. (2) Diabetes mellitus, type II, insulin dependent Current Visit: Yes Status: Chronic Assessment and plan: Blood sugars noted to be well controlled. Continue Accu-Chek blood glucose monitoring with sliding scale insulin. Diabetic diet. (3) Depression Current Visit: Yes Status: Chronic Qualifiers: Depression Type: unspecified Qualified Code(s): F32.9 - Major depressive disorder, single episode, unspecified (4) Anxiety Current Visit: Yes Status: Chronic (5) Obesity (BMI 30-39.9) Current Visit: Yes Status: Chronic (6) Paroxysmal atrial fibrillation Current Visit: Yes Status: Chronic Assessment and plan: Currently rate controlled. Continue beta jose armando and long-term anticoagulation with Pradaxa. (7) HTN (hypertension) Current Visit: Yes Status: Chronic Qualifiers: Hypertension type: essential hypertension Qualified Code(s): I10 - Essential (primary) hypertension (8) COPD (chronic obstructive pulmonary disease) Current Visit: Yes Status: Chronic Qualifiers: COPD type: chronic bronchitis Chronic bronchitis type: unspecified Qualified Code(s): J42 - Unspecified chronic bronchitis - Subjective Interval history: Continues to report abdominal cramps and loose watery diarrhea, had 12 times since morning; no nausea, vomiting, fever/chills; - Constitutional Vitals: Temp Pulse Resp BP Pulse Ox 98.2 F 55 15 122/80 98 06/25/17 12:19 06/25/17 12:19 06/25/17 12:19 06/25/17 12:19 06/25/17 12:19 General appearance: Present: A&O X 3, answers questions appropriately - Respiratory Respiratory exam: Present: CTAB. Absent: accessory muscle use, rales, rhonchi, wheezes - Cardiovascular Cardiovascular exam: Present: RRR, +S1, +S2. Absent: diastolic murmur, gallop, rubs, systolic murmur - GI/Abdominal GI/Abdominal exam: Present: normal bowel sounds, soft (tenderness in central and LLQ), no peritoneal signs. Absent: distended, tenderness - Extremities Exam Extremities exam: Present: full ROM, warm, radial pulses palpable and symmetrical. Absent: calf tenderness, cyanotic, pedal edema Internal Medicine: Result - Labs CBC & Chem 7: 06/25/17 04:30 06/25/17 04:30 Labs: Short CBC 06/25/17 Range/Units 04:30 WBC 7.2 (4.3-11.1) K/mcL Hgb 11.1 L (11.5-15.4) g/dL Hct 36.4 (35.3-44.9) % Plt Count 279 (140-400) K/mcL Neutrophils # 4.8 (1.6-8.9) K/mcL BMP 06/25/17 04:30 Sodium 137 Potassium 4.1 Chloride 104 Carbon Dioxide 25 BUN 7 Creatinine 0.67 Glucose 213 H Calcium 9.3 Consult Discharge Plan - Plan Referrals: Joanne Paez MD [Primary Care Provider] - Prescriptions: Vancomycin Oral Soln [Vancocin] 125 mg PO QID 12 Days udc
[2017-06-25] MEDS: clonazePAM 0.5 MG TABLET PO SCH (20:35)
[2017-06-26] MEDS: Ondansetron 4 MG/2 ML VIAL IVP PRN (00:34)
[2017-06-26] MEDS: *HR* Morphine 2 MG/ML SYRINGE IVP PRN ×4 (04:27→20:51)
[2017-06-26] MEDS: *HR* OxyCODONE/APAP 5/325 TABLET PO PRN ×2 (07:44→18:10)
[2017-06-26] MEDS: Insulin LISPRO 300 UNITS/3 ML VIAL SQ SCH ×3 (07:45→17:00)
[2017-06-26] MEDS: Aspirin Enteric Coated 81 MG Tablet PO SCH (07:45)
[2017-06-26] MEDS: Lactobacillus 1 EACH CAP.SPRINK PO SCH ×2 (07:45→20:51)
[2017-06-26] MEDS: *HR* Dabigatran 150 MG CAPSULE PO SCH ×2 (07:45→20:51)
[2017-06-26] MEDS: Vancomycin Oral Soln 250 MG/5 ML UDC PO SCH ×4 (07:46→20:52)
[2017-06-26] MEDS: Famotidine 20 MG TABLET PO SCH ×2 (07:56→20:51)
--- NOTE | 2017-06-26 13:07 | Internal Med Progress Note ---
Date of Encounter: 06/26/17 Time of Encounter: 13:06 - Assessment and plan (1) C. difficile colitis Current Visit: Yes Status: Acute Assessment and plan: First episode, recently started treatment and discharged on oral vancomycin, which she could not afford, prompting readmission. Continues to have diffuse abdominal cramps and beginning to have somewhat formed stools. Continue by mouth vancomycin at this time, to complete a 14-day course. Supportive care with when necessary antiemetics, continue IV morphine and oral Percocet for pain control. Monitor and replete electrolytes. No fever or leukocytosis. (2) Diabetes mellitus, type II, insulin dependent Current Visit: Yes Status: Chronic Assessment and plan: Blood sugars noted to be well controlled. Continue Accu-Chek blood glucose monitoring with sliding scale insulin. Diabetic diet. (3) Depression Current Visit: Yes Status: Chronic Qualifiers: Depression Type: unspecified Qualified Code(s): F32.9 - Major depressive disorder, single episode, unspecified (4) Anxiety Current Visit: Yes Status: Chronic (5) Obesity (BMI 30-39.9) Current Visit: Yes Status: Chronic (6) Paroxysmal atrial fibrillation Current Visit: Yes Status: Chronic Assessment and plan: Currently rate controlled. Continue beta jose armando and long-term anticoagulation with Pradaxa. (7) HTN (hypertension) Current Visit: Yes Status: Chronic Qualifiers: Hypertension type: essential hypertension Qualified Code(s): I10 - Essential (primary) hypertension (8) COPD (chronic obstructive pulmonary disease) Current Visit: Yes Status: Chronic Assessment and plan: Stable, no signs of exacerbation. Continue home medications Qualifiers: COPD type: chronic bronchitis Chronic bronchitis type: unspecified Qualified Code(s): J42 - Unspecified chronic bronchitis - Subjective Interval history: Continues to report abdominal cramps and loose watery diarrhea, slightly improved; no nausea, vomiting, fever/chills; eats partial meals; - Constitutional Vitals: Temp Pulse Resp BP Pulse Ox 98.0 F 59 16 102/60 94 06/26/17 11:28 06/26/17 11:28 06/26/17 11:28 06/26/17 11:28 06/26/17 11:28 General appearance: Present: A&O X 3, answers questions appropriately - Respiratory Respiratory exam: Present: CTAB. Absent: accessory muscle use, rales, rhonchi, wheezes - Cardiovascular Cardiovascular exam: Present: RRR, +S1, +S2. Absent: diastolic murmur, gallop, rubs, systolic murmur - GI/Abdominal GI/Abdominal exam: Present: normal bowel sounds, soft, no peritoneal signs. Absent: distended, tenderness Internal Medicine: Result - Labs CBC & Chem 7: 06/25/17 04:30 06/25/17 04:30 Consult Discharge Plan - Plan Referrals: Joanne Paez MD [Primary Care Provider] -
[2017-06-26] MEDS: clonazePAM 0.5 MG TABLET PO SCH (20:51)
[2017-06-27] MEDS: Insulin LISPRO 300 UNITS/3 ML VIAL SQ SCH ×5 (00:18→22:04)
[2017-06-27] MEDS: *HR* OxyCODONE/APAP 5/325 TABLET PO PRN ×3 (00:24→21:40)
[2017-06-27] MEDS: *HR* Morphine 2 MG/ML SYRINGE IVP PRN ×5 (02:37→23:32)
[2017-06-27] MEDS: Vancomycin Oral Soln 250 MG/5 ML UDC PO SCH (08:39)
[2017-06-27] MEDS: *HR* Dabigatran 150 MG CAPSULE PO SCH ×2 (08:41→21:39)
[2017-06-27] MEDS: Aspirin Enteric Coated 81 MG Tablet PO SCH (08:41)
[2017-06-27] MEDS: Famotidine 20 MG TABLET PO SCH ×2 (08:41→21:40)
[2017-06-27] MEDS: Lactobacillus 1 EACH CAP.SPRINK PO SCH ×2 (09:40→21:20)
[2017-06-27] MEDS: Ondansetron 4 MG/2 ML VIAL IVP PRN (09:44)
--- NOTE | 2017-06-27 12:11 | Internal Med Progress Note ---
Date of Encounter: 06/27/17 Time of Encounter: 12:08 - Assessment and plan (1) C. difficile colitis Current Visit: Yes Status: Acute Assessment and plan: First episode, recently started treatment and discharged on oral vancomycin, which she could not afford, prompting readmission. Continues to have diffuse abdominal cramps along with significant amount of watery diarrhea. Given her ongoing symptoms, we will change antibiotics to oral Dificid-Day 1. Check for insurance prior authorization. Check CT abdomen/ pelvis for complications from C. difficile colitis. Supportive care with when necessary antiemetics, continue IV morphine and oral Percocet for pain control. Monitor and replete electrolytes. No fever or leukocytosis. (2) Diabetes mellitus, type II, insulin dependent Current Visit: Yes Status: Chronic Assessment and plan: Blood sugars noted to be elevated. Continue Accu-Chek blood glucose monitoring with sliding scale insulin. Start low-dose basal insulin. Diabetic diet. (3) Depression Current Visit: Yes Status: Chronic Qualifiers: Depression Type: unspecified Qualified Code(s): F32.9 - Major depressive disorder, single episode, unspecified (4) Anxiety Current Visit: Yes Status: Chronic (5) Obesity (BMI 30-39.9) Current Visit: Yes Status: Chronic (6) Paroxysmal atrial fibrillation Current Visit: Yes Status: Chronic Assessment and plan: Currently rate controlled. Continue beta jose armando and long-term anticoagulation with Pradaxa. (7) HTN (hypertension) Current Visit: Yes Status: Chronic Assessment and plan: Continue home medications Qualifiers: Hypertension type: essential hypertension Qualified Code(s): I10 - Essential (primary) hypertension (8) COPD (chronic obstructive pulmonary disease) Current Visit: Yes Status: Chronic Qualifiers: COPD type: chronic bronchitis Chronic bronchitis type: unspecified Qualified Code(s): J42 - Unspecified chronic bronchitis - Subjective Interval history: Continues to report abdominal cramps and loose watery diarrhea, about 20 times last night and could not get any sleep; no nausea, vomiting, fever/chills; eats partial meals as she is afraid of diarrhea; - Constitutional Vitals: Temp Pulse Resp BP Pulse Ox 97.8 F 62 16 108/62 94 06/27/17 07:49 06/27/17 07:49 06/27/17 07:49 06/27/17 07:49 06/27/17 07:49 General appearance: Present: mild distress, A&O X 3, answers questions appropriately - Respiratory Respiratory exam: Present: CTAB. Absent: accessory muscle use, rales, rhonchi, wheezes - Cardiovascular Cardiovascular exam: Present: RRR, +S1, +S2. Absent: diastolic murmur, gallop, rubs, systolic murmur - GI/Abdominal GI/Abdominal exam: Present: hyperactive bowel sounds, soft (tenderness in right lower and central abdomen, right trunk), no peritoneal signs. Absent: distended , tenderness Internal Medicine: Result - Labs CBC & Chem 7: 06/25/17 04:30 06/25/17 04:30 Consult Discharge Plan - Plan Referrals: Joanne Paez MD [Primary Care Provider] - Prescriptions: Fidaxomicin [Dificid] 200 mg PO BID #28 tablet
[2017-06-27] MEDS: Fidaxomicin 200 MG TABLET PO SCH ×2 (12:37→21:39)
[2017-06-27] MEDS: clonazePAM 0.5 MG TABLET PO SCH (21:39)
[2017-06-27] MEDS: Insulin DETEMIR 100 UNIT/ML X5UNITS SQ SCH (21:40)
[2017-06-28] MEDS: *HR* Morphine 2 MG/ML SYRINGE IVP PRN ×3 (03:28→12:35)
[2017-06-28] MEDS: Lactobacillus 1 EACH CAP.SPRINK PO SCH (07:57)
[2017-06-28] MEDS: Famotidine 20 MG TABLET PO SCH (07:57)
[2017-06-28] MEDS: *HR* Dabigatran 150 MG CAPSULE PO SCH (07:57)
[2017-06-28] MEDS: Aspirin Enteric Coated 81 MG Tablet PO SCH (07:57)
[2017-06-28] MEDS: Insulin LISPRO 300 UNITS/3 ML VIAL SQ SCH ×3 (08:21→17:14)
[2017-06-28] MEDS: Fidaxomicin 200 MG TABLET PO SCH (08:21)
[2017-06-28] MEDS: Insulin DETEMIR 100 UNIT/ML X5UNITS SQ SCH (10:04)
--- NOTE | 2017-06-28 12:00 | Internal Med Progress Note ---
Date of Encounter: 06/28/17 Time of Encounter: 11:58 - Assessment and plan (1) C. difficile colitis Current Visit: Yes Status: Acute (2) Diabetes mellitus, type II, insulin dependent Current Visit: Yes Status: Chronic (3) Depression Current Visit: Yes Status: Chronic Qualifiers: Depression Type: unspecified Qualified Code(s): F32.9 - Major depressive disorder, single episode, unspecified (4) Anxiety Current Visit: Yes Status: Chronic (5) Obesity (BMI 30-39.9) Current Visit: Yes Status: Chronic (6) Paroxysmal atrial fibrillation Current Visit: Yes Status: Chronic (7) HTN (hypertension) Current Visit: Yes Status: Chronic Qualifiers: Hypertension type: essential hypertension Qualified Code(s): I10 - Essential (primary) hypertension (8) COPD (chronic obstructive pulmonary disease) Current Visit: Yes Status: Chronic Qualifiers: COPD type: chronic bronchitis Chronic bronchitis type: unspecified Qualified Code(s): J42 - Unspecified chronic bronchitis - Subjective Interval history: Feels better today; improved diarrhea, improving abdominal cramps; tolerates diet better; no nausea, vomiting, fever/chills; - Constitutional Vitals: Temp Pulse Resp BP Pulse Ox 97.8 F 70 18 116/76 95 06/28/17 08:00 06/28/17 08:00 06/28/17 08:00 06/28/17 08:00 06/28/17 08:00 General appearance: Present: A&O X 3, answers questions appropriately - Respiratory Respiratory exam: Present: CTAB. Absent: accessory muscle use, rales, rhonchi, wheezes - Cardiovascular Cardiovascular exam: Present: RRR, +S1, +S2. Absent: diastolic murmur, gallop, rubs, systolic murmur - GI/Abdominal GI/Abdominal exam: Present: normal bowel sounds, soft (right trunk and back tenderness), no peritoneal signs. Absent: distended, tenderness Internal Medicine: Result - Labs CBC & Chem 7: 06/25/17 04:30 06/25/17 04:30 - Impressions Impressions Abdomen/Pelvis CT 06/27/17 15:30 IMPRESSION: No substantial change in size of the large left ovarian cyst; however, the ovary has changed in position. No free fluid or inflammatory stranding in the pelvis. Consider ultrasound evaluation if there is concern for ovarian torsion. Large colonic stool volume. Query constipation. Above findings were called and discussed by Dr. Michael Alexandre to Dr. Kierra Navas on 06/27/2017 at 17:29. D/ / 06/27/2017 16:25:33 Michael Alexandre / [email or web address] Interpreting Provider: Michael Alexandre Abdomen/Pelvis/Transvag US 06/27/17 20:00 IMPRESSION: No sonographic evidence of ovarian torsion. 5.5 cm simple left adnexal cyst. This finding is almost certainly benign. A follow-up pelvic ultrasound in 1 year is recommended. D/ / Paris Mcmullen Cha, MD / Paris Mcmullen Cha, MD Interpreting Provider: Paris Mcmullen Cha, MD Consult Discharge Plan - Plan Referrals: Joanne Paez MD [Primary Care Provider] - Prescriptions: Fidaxomicin [Dificid] 200 mg PO BID #28 tablet
[2017-06-28 15:21] VITALS: BP 105/53
[2017-06-28 15:34] LABS: BUN/Creatinine Ratio 17 (6-26); Blood Urea Nitrogen 12 mg/dL (7-20); Calcium 9.9 mg/dL (8.6-10.8); Carbon Dioxide 25 mEq/L (19-29); Chloride 101 mEq/L (98-109); Glucose 215 mg/dL (70-99); Magnesium 1.4 mg/dL (1.6-2.6); Osmolality,Calculated 290 (280-300); Potassium 4.5 mEq/L (3.5-4.5); Sodium 137 mEq/L (136-145); eGFR For African Americans > 60 (> 60); eGFR For Non-African Americans > 60 (> 60)
[2017-06-28] MEDS ORDERED: Insulin LISPRO 300 UNITS/3 ML VIAL SQ SCH ×2 (16:30→21:00)
--- NOTE | 2017-06-28 16:43 | Discharge Summary ---
Date of Encounter: 06/28/17 Time of Encounter: 12:30 - Discharge Diagnosis (1) C. difficile colitis Priority: Primary Status: Acute (2) Diabetes mellitus, type II, insulin dependent Priority: Secondary Status: Chronic (3) Depression Priority: Secondary Status: Chronic Qualifiers: Depression Type: unspecified Qualified Code(s): F32.9 - Major depressive disorder, single episode, unspecified (4) Anxiety Priority: Secondary Status: Chronic (5) Obesity (BMI 30-39.9) Priority: Secondary Status: Chronic (6) Paroxysmal atrial fibrillation Priority: Secondary Status: Chronic (7) HTN (hypertension) Priority: Secondary Status: Chronic Qualifiers: Hypertension type: essential hypertension Qualified Code(s): I10 - Essential (primary) hypertension (8) COPD (chronic obstructive pulmonary disease) Priority: Secondary Status: Chronic Qualifiers: COPD type: chronic bronchitis Chronic bronchitis type: unspecified Qualified Code(s): J42 - Unspecified chronic bronchitis - Discharge Medications Prescriptions: OxyCODONE/APAP 5/325 [Percocet 5/325 MG] 1 each PO Q6HR PRN #15 tablet PRN Reason: Pain Fidaxomicin [Dificid] 200 mg PO BID #28 tablet Home Medications: Aspirin [Adult Low Dose Aspirin EC] 81 mg PO DAILY 10/26/15 [History] Etonogestrel [Nexplanon] 68 mg SQ AD 10/26/15 [History] metFORMIN [Glucophage] 1,000 mg PO BIDWM 10/26/15 [History] Albuterol Sulfate [Proair Respiclick] 2 puff IH Q4H PRN #1 02/08/17 [Rx] clonazePAM [Klonopin] 0.5 mg PO HS 03/04/17 [History] Dabigatran Etexilate Mesylate [Pradaxa] 150 mg PO BID 05/12/17 [History] Flecainide 100 mg PO BID 05/12/17 [History] Omeprazole [PriLOSEC] 40 mg PO DAILY 05/12/17 [History] Atorvastatin Calcium [Lipitor] 20 mg PO HS 06/03/17 [History] Sertraline [Zoloft] 300 mg PO DAILY 06/03/17 [History] traZODone [TraZODone] 50 - 100 mg PO HS PRN 06/03/17 [History] Cyclobenzaprine [Flexeril] 10 mg PO BID PRN #6 tablet 06/08/17 [Rx] Lactobacillus [Culturelle] 1 each PO BID #60 cap.sprink 06/20/17 [Rx] Lisinopril [Zestril] 5 mg PO DAILY tablet 06/20/17 [Rx] Metoprolol [Lopressor] 12.5 mg PO BID 06/24/17 [History] Fidaxomicin [Dificid] 200 mg PO BID #28 tablet 06/27/17 [Rx] Metoprolol [Lopressor] 12.5 mg PO BID tablet 06/28/17 [Rx] OxyCODONE/APAP 5/325 [Percocet 5/325 MG] 1 each PO Q6HR PRN #15 tablet 06/28/17 [Rx] Allergies/Adverse Reactions: 3 Allergy/AdvReac Type Severity Reaction Status Date / Time No Known Allergies Allergy Verified 06/30/17 15:31 Procedures/tests Complete & Pending: Procedures Performed prior 72 hours Category Date Time Status CT abd pelvis w iv and oral [CT] Routine Cat Scan 06/27/17 15:30 Completed US pelvis transvag dopp non ob [US] Routine Exams 06/27/17 20:00 Completed Date of admission: 06/25/17 18:16 Primary care physician: Joanne Paez Discharging clinician: Kierra Navas Anticipated date of discharge: 06/28/17 - Patient Status Disposition: Home, Self-Care Condition: Fair Functional capacity at discharge: independent ambulation Overall status at discharge: patient is progressing back to baseline - Discharge Instructions Instructions: Clostridium Difficile Infection (DC) Follow Up With: Joanne Paez MD [Primary Care Provider] - (WEB REQUEST ENTERED. OFFICE WILL CALL WITH APPOINTMENT) Additional Instructions: F/up with PCP in 1-2 weeks - Diet and Activity Activity: resume usual activities as tolerated Diet: advance to your usual diet, diabetic diet, low fat, low cholesterol, low salt diet Hospital course: Ms. Jacome is a 51 year old female with the above medical problems who was admitted with abdominal pain and diarrhea. Patient was recently diagnosed with Clostridium difficile infection and was discharged home on oral vancomycin, which her insurance would not cover. CT abdomen/pelvis during this admission also showed diffuse colitis. She was started on oral vancomycin 125 mg 4 times a day and was placed on contact precautions. She was given supportive care with IV hydration, electrolyte monitoring, when necessary antiemetics and pain control. She continued to have persistent symptoms including severe diarrhea and abdominal cramps. Antibiotics were gradually changed to oral Fidaxomicin, with which patient's symptoms significantly improved. She was also noted to have a moderate sized left ovary and cyst on CT abdomen/ pelvis. Transvaginal ultrasound ruled out ovarian Torsion. Gynecology evaluation was completed and recommended outpatient follow-up for this ovary and cyst. Patient is currently medically stable for discharge. Insurance prior authorization was completed and patient received her antibiotic to take home. - Time Spent with Patient Total time spent providing and/or coordinating discharge services: Greater than 30 minutes (45 min) - Constitutional Vitals: Temp Pulse Resp BP Pulse Ox 98.0 F 70 16 105/53 100 06/28/17 15:20 06/28/17 15:20 06/28/17 15:20 06/28/17 15:20 06/28/17 15:20 General appearance: Present: A&O X 3, answers questions appropriately - GI/Abdominal GI/Abdominal exam: Present: normal bowel sounds, soft, no peritoneal signs. Absent: distended, tenderness
[2017-06-28] MEDS: *HR* OxyCODONE/APAP 5/325 TABLET PO PRN (17:14)
[2017-06-28] MEDS ORDERED: Insulin DETEMIR 100 UNIT/ML X5UNITS SQ SCH (21:00)
== END 2017-06-28 18:28 | disposition home or self-care (01) | DRG 248 ==
LOC: EMEROO 18:16 → 3ANU 18:16 → SUATTDRO 20:51 → 3ANU 21:22
PROVIDERS: ADMIT Internal Medicine; ATTEND Internal Medicine

== ENCOUNTER 2017-07-09 14:38 | Inpatient (IN) ==
[2017-07-09] MEDS ORDERED: 0.9 % Sodium Chloride 1,000 ML IVC ONE (14:52)
--- NOTE | 2017-07-09 15:06 | Emergency Department Note ---
Disposition Clinical Impression: Clostridium difficile infection Abdominal pain Qualifiers: Abdominal location: unspecified location Qualified Code(s): R10.9 - Unspecified abdominal pain Disposition: Admitted As Inpatient Condition: Good Time of Disposition: 19:05 Abdominal Pain HPI - General Chief Complaint: ED Abdominal Pain Stated Complaint: abd pain, N/D Time Seen by Provider: 07/09/17 14:43 Source: patient, EMS Mode of arrival: EMS Limitations: no limitations Nursing Notes Reviewed: Yes Vital Signs Reviewed: Yes - History of Present Illness HPI Narrative: 51-year-old female presents to the ED via EMS for abdominal pain and diarrhea. Symptoms have been worse over the past 4 days. Patient continues to be treated for Clostridium difficile infection. She is currently taking Flagyl for the symptoms. Patient has also been on oral vancomycin. She was recently discharged on the over a week ago but due to her insurance was unable to take oral vancomycin and has been on Flagyl. Per her reports the vancomycin was more successful in treating her symptoms. Since then she continues to have loose diarrhea. She also reports of nausea vomiting. Abdominal pain is diffuse mostly in the epigastric region. Reports some shortness of breath due to the pain. She has a history of atrial fibrillation is on Flecinide and takes Pradaxa. She denies any fever, cough or rhinorrhea. Denies any other symptoms or complaints such as dysuria. She does report being told she has a left ovarian cysts unknown size. She had a ultrasound that was performed that did not reveal any issues. At this time patient appears slightly dehydrated with some abdominal discomfort. Contact precautions initiated. Pt Subjective Complaint: abdominal pain Pain Scale: 9 - Related Data Home Medications Medication Instructions Recorded Confirmed Aspirin [Adult Low Dose Aspirin EC] 81 mg PO DAILY 10/26/15 07/09/17 Etonogestrel [Nexplanon] 68 mg SQ AD 10/26/15 07/09/17 metFORMIN [Glucophage] 1,000 mg PO BIDWM 10/26/15 07/09/17 clonazePAM [Klonopin] 0.5 mg PO HS 03/04/17 07/09/17 Dabigatran Etexilate Mesylate 150 mg PO BID 05/12/17 07/09/17 [Pradaxa] Flecainide 100 mg PO BID 05/12/17 07/09/17 Omeprazole [PriLOSEC] 40 mg PO DAILY 05/12/17 07/09/17 Atorvastatin Calcium [Lipitor] 20 mg PO HS 06/03/17 07/09/17 Sertraline [Zoloft] 300 mg PO DAILY 06/03/17 07/09/17 traZODone [TraZODone] 50 - 100 mg PO HS PRN 06/03/17 07/09/17 Albuterol Sulfate [Ventolin Hfa] 2 puff IH Q4H PRN 07/09/17 07/09/17 Previous Rx's Medication Instructions Recorded Lisinopril [Zestril] 5 mg PO DAILY tablet 06/20/17 Metoprolol [Lopressor] 12.5 mg PO BID tablet 06/28/17 Allergies Allergy/AdvReac Type Severity Reaction Status Date / Time No Known Allergies Allergy Verified 06/30/17 15:31 All systems ED: reviewed and negative except as stated. Review of Systems: As Per HPI Constitutional: Denies: fever, chills ENT ED: Denies: throat pain, congestion Cardiovascular: Denies: chest pain Respiratory: Denies: cough, dyspnea Gastrointestinal: Reports: abdominal pain, nausea, diarrhea. 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 Psychiatric history: Reports: anxiety, depression - Social History Smoking status: Never smoker Alcohol use: Reports: none Drug use: Reports: none Physical Exam - General Limitations: no limitations General appearance: alert, in no apparent distress - Head Head exam: atraumatic, normocephalic, normal inspection - Eye Eye exam: Present: normal appearance, PERRL, EOMI - ENT ENT exam: normal exam, normal oropharynx, mucous membranes moist - Neck Neck exam: Present: normal inspection, full ROM, trachea midline - Chest Chest inspection: Present: normal inspection, symmetric chest wall rise - Respiratory Respiratory exam: Present: normal lung sounds bilaterally - Cardiovascular Cardiovascular exam: Present: regular rate, normal rhythm, normal heart sounds - Abdominal Exam Abdominal exam: Present: soft, Non-Tender, tenderness, normal bowel sounds. Absent: distention, guarding, rebound, rigidity, tenderness at McBurney's Point Abdominal tenderness: Present: diffuse - Extremities Exam Extremities exam: Present: normal inspection, full ROM, normal capillary refill. Absent: tenderness - Back Exam Back exam: Present: normal inspection, full ROM. Absent: tenderness - Neurological Exam Neurological exam: Present: alert, oriented X3 - Psychiatric Psychiatric exam: Present: normal affect, normal mood - Skin Skin exam: Present: warm, dry, intact, normal color. Absent: rash, cyanosis, diaphoresis Course - Reevaluation(s) Reevaluation #1: Patient is diffuse abdominal pain. She is currently being treated for classroom if the seal infection. She has some report improvement when she took oral vancomycin however her insurance denied approving she has been placed back on Flagyl. Since then she has been having persistent pain and symptoms. Does not appear improved. She has history of obstruction so CT abdomen and pelvis ordered. Basic labs ordered. Review show stable chronic anemia. Her Lactate is 1.8. She is not septic.. Electrolytes are normal. Her glucose is elevated. Urinalysis not consistent with infection. At this time patient would benefit inpatient treatment for Clostridium difficile infection as this could be the likely etiology of her abdominal pain. She may require alternative treatments. Patients in agreement with this plan. He abdominal examination shows a abdomen that is soft with peace tenderness mostly to the upper quadrants. No intra-abdominal pathology seen on CT scan. Abdomen/Pelvis CT 07/09/17 16:30 IMPRESSION: Left ovarian cyst has diminished compared to prior study. No acute findings D/ / Pete Saalzar MD / Pete Salazar MD Interpreting Provider: Pete Salazar MD - Consultations Consultation #1: Spoke with on-call hospitalist dana Gaffney to admit for abdominal pain, C. diff infection failed outpatient treatment. No further orders at this time Vital Signs Temperature 98.1 F 07/09/17 14:40 Pulse Rate 90 07/09/17 14:40 Respiratory Rate 18 07/09/17 14:40 Blood Pressure 160/86 07/09/17 14:40 O2 Sat by Pulse Oximetry 99 07/09/17 14:40 Temperature 98.1 F 07/09/17 14:40 Pulse Rate 91 07/09/17 19:07 Respiratory Rate 20 07/09/17 19:07 Blood Pressure 145/77 07/09/17 19:07 O2 Sat by Pulse Oximetry 96 07/09/17 19:07 Oxygen Delivery Oxygen Delivery Room Air Abdominal Pain - MDM Narrative Medical decision making narrative: Patient was discussed with my attending physician who agrees with ED management and final disposition. They independently evaluated the patient. Please refer to their attestation to this encounter for additional information. This note was generated by [employer] voice recognition software and as a result grammatical or spelling errors may occur using this program. - Medical Records Medical records reviewed: Yes I reviewed the patient's medical records. - Lab Data Lab results reviewed: Yes I reviewed the patient's lab results. Result diagrams: 07/09/17 15:19 07/09/17 15:19 Lab Results 07/09/17 07/09/17 07/09/17 Range/Units 15:19 15:19 16:12 WBC 6.5 (4.3-11.1) K/mcL RBC 4.54 (3.82-4.97) M/mcL Hgb 11.2 L (11.5-15.4) g/dL Hct 35.1 L (35.3-44.9) % MCV 77.3 L (83.0-100.0) fL MCH 24.7 L (28.0-33.3) pg MCHC 31.9 (31.6-35.5) g/dL RDW 15.3 H (11.5-14.5) % Plt Count 210 (140-400) K/mcL MPV 10.3 (9.4-12.4) fL Immature Gran % 0.3 (0-4) % Seg Neutrophils % 74.6 % Lymphocytes % 18.0 % Monocytes % 3.4 % Eosinophils % 3.2 % Basophils % 0.5 % Neutrophils # 4.8 (1.6-8.9) K/mcL Lymphocytes # 1.2 (0.6-4.6) K/mcL Monocytes # 0.2 (0.0-1.3) K/mcL Eosinophils # 0.2 (0.0-0.6) K/mcL Basophils # 0.0 (0.0-0.2) K/mcL Sodium 138 (136-145) mEq/L Potassium 3.5 (3.5-5.1) mEq/L Chloride 104 (98-107) mEq/L Carbon Dioxide 24 (23-29) mEq/L BUN 9 (6-20) mg/dL Creatinine 0.47 L (0.60-1.20) mg/dL Est GFR ( Amer) > 60 (> 60) Est GFR (Non-Af Amer) > 60 (> 60) BUN/Creatinine Ratio 19 (6-26) Glucose 302 H (70-105) mg/dL Calculated Osmolality 296 (280-300) Lactic Acid (0.5-2.2) mmol/L Calcium 9.0 (8.6-10.3) mg/dL Total Bilirubin 0.4 (0.3-1.0) mg/dL Direct Bilirubin 0.0 (0.0-0.2) mg/dL Indirect Bilirubin 0.4 (0.0-1.2) mg/dL AST 25 (13-39) Units/L ALT 23 (7-52) Units/L Alkaline Phosphatase 81 (34-104) Units/L Serum Total Protein 6.4 (6.4-8.9) g/dL Albumin 3.8 (3.5-5.7) g/dL Globulin 2.6 (2.4-3.5) g/dL Albumin/Globulin Ratio 1.5 (1.1-2.2) Lipase 21 (11-82) Units/L Urine Color Yellow (Yellow) Urine Clarity Clear (Clear) Urine pH 6.0 (5.0-8.0) pH Units Ur Specific [place] > 1.030 H (1.010-1.025) Urine Protein Trace (Neg-Trace) mg/dL Urine Glucose (UA) >=1000 H (Normal) mg/dL Urine Ketones Negative (Negative) mg/dL Urine Blood Negative (Negative) Urine Nitrite Negative (Negative) Urine Bilirubin Negative (Negative) Urine Urobilinogen Normal (Normal) mg/dL Ur Leukocyte Esterase Negative (Negative) Urine Microscopic RBC 0-3 (0-3) per hpf Urine Microscopic WBC 5-15 H (0-3) per hpf Ur Squamous Epith Cells Many H (None-Few) per lpf Urine Bacteria Few (None-Few) per hpf Hyaline Casts None Seen (None-Few) per lpf Ur Culture Indicated? NO (NO) Specimen Rejected 07/09/17 07/09/17 Range/Units 16:56 17:59 WBC (4.3-11.1) K/mcL RBC (3.82-4.97) M/mcL Hgb (11.5-15.4) g/dL Hct (35.3-44.9) % MCV (83.0-100.0) fL MCH (28.0-33.3) pg MCHC (31.6-35.5) g/dL RDW (11.5-14.5) % Plt Count (140-400) K/mcL MPV (9.4-12.4) fL Immature Gran % (0-4) % Seg Neutrophils % % Lymphocytes % % Monocytes % % Eosinophils % % Basophils % % Neutrophils # (1.6-8.9) K/mcL Lymphocytes # (0.6-4.6) K/mcL Monocytes # (0.0-1.3) K/mcL Eosinophils # (0.0-0.6) K/mcL Basophils # (0.0-0.2) K/mcL Sodium (136-145) mEq/L Potassium (3.5-5.1) mEq/L Chloride (98-107) mEq/L Carbon Dioxide (23-29) mEq/L BUN (6-20) mg/dL Creatinine (0.60-1.20) mg/dL Est GFR ( Amer) (> 60) Est GFR (Non-Af Amer) (> 60) BUN/Creatinine Ratio (6-26) Glucose (70-105) mg/dL Calculated Osmolality (280-300) Lactic Acid 1.8 (0.5-2.2) mmol/L Calcium (8.6-10.3) mg/dL Total Bilirubin (0.3-1.0) mg/dL Direct Bilirubin (0.0-0.2) mg/dL Indirect Bilirubin (0.0-1.2) mg/dL AST (13-39) Units/L ALT (7-52) Units/L Alkaline Phosphatase (34-104) Units/L Serum Total Protein (6.4-8.9) g/dL Albumin (3.5-5.7) g/dL Globulin (2.4-3.5) g/dL Albumin/Globulin Ratio (1.1-2.2) Lipase (11-82) Units/L Urine Color (Yellow) Urine Clarity (Clear) Urine pH (5.0-8.0) pH Units Ur Specific [place] (1.010-1.025) Urine Protein (Neg-Trace) mg/dL Urine Glucose (UA) (Normal) mg/dL Urine Ketones (Negative) mg/dL Urine Blood (Negative) Urine Nitrite (Negative) Urine Bilirubin (Negative) Urine Urobilinogen (Normal) mg/dL Ur Leukocyte Esterase (Negative) Urine Microscopic RBC (0-3) per hpf Urine Microscopic WBC (0-3) per hpf Ur Squamous Epith Cells (None-Few) per lpf Urine Bacteria (None-Few) per hpf Hyaline Casts (None-Few) per lpf Ur Culture Indicated? (NO) Specimen Rejected Hemolyzed - Radiology Data Radiology results reviewed: Yes I reviewed the patient's radiology results. Abdomen/Pelvis CT 07/09/17 16:30 IMPRESSION: Left ovarian cyst has diminished compared to prior study. No acute findings D/ / Pete Salazar MD / Pete Salazar MD Interpreting Provider: Pete Salazar MD Attestation Statement - Attestation Attestation: I, Rafal Castro DO, examined this patient [id number] and my medical decision-making was reviewed with Epi Green DO , Resident Physician. I agree with the documented findings, disposition and treatment plan as described except to the extent set forth below. Please see my progress notes for details. 51-year-old female presents to emergency for evaluation of nausea vomiting abdominal cramping and discomfort. Patient has known Clostridium difficile. She has only been able to take Flagyl at home secondary to abdominal discomfort and pain. Patient presents here today feeling like the symptoms have not gotten better and and are not controlled. Patient otherwise had screening evaluation completed with stable laboratory workup and imaging. Patient has known obstructive pathology. Vital signs are stable. Patient will be admitted for symptomatic control. Lungs are clear heart is regular abdomen is soft nontender nondistended with no guarding or rigidity. Disposition admitted at this time. See detailed documentation of physical exam, medical intervention, medical decision-making and disposition and the resident physician's note
[2017-07-09 15:27] LABS: Basophils % 0.5 %; Eosinophils # 0.2 K/mcL (0.0-0.6); Eosinophils % 3.2 %; Hematocrit 35.1 % (35.3-44.9); Hemoglobin 11.2 g/dL (11.5-15.4); Immature Granulocytes % 0.3 % (0-4); Lymphocytes # 1.2 K/mcL (0.6-4.6); Mean Corpuscular HGB Conc 31.9 g/dL (31.6-35.5); Mean Corpuscular Hemoglobin 24.7 pg (28.0-33.3); Mean Corpuscular Volume 77.3 fL (83.0-100.0); Mean Platelet Volume 10.3 fL (9.4-12.4); Monocytes # 0.2 K/mcL (0.0-1.3); Monocytes % 3.4 %; Neutrophils # 4.8 K/mcL (1.6-8.9); Platelet Count 210 K/mcL (140-400); Red Blood Count 4.54 M/mcL (3.82-4.97); Red Cell Distribution Width 15.3 % (11.5-14.5); Segmented Neutrophils % 74.6 %
[2017-07-09 15:42] LABS: Alanine Aminotransferase 23 Units/L (7-52); Albumin 3.8 g/dL (3.5-5.7); Albumin/Globulin Ratio 1.5 (1.1-2.2); Alkaline Phosphatase 81 Units/L (34-104); Aspartate Amino Transferase 25 Units/L (13-39); BUN/Creatinine Ratio 19 (6-26); Bilirubin,Indirect 0.4 mg/dL (0.0-1.2); Bilirubin,Total 0.4 mg/dL (0.3-1.0); Blood Urea Nitrogen 9 mg/dL (6-20); Carbon Dioxide 24 mEq/L (23-29); Chloride 104 mEq/L (98-107); Globulin 2.6 g/dL (2.4-3.5); Glucose 302 mg/dL (70-105); Lipase 21 Units/L (11-82); Osmolality,Calculated 296 (280-300); Potassium 3.5 mEq/L (3.5-5.1); Sodium 138 mEq/L (136-145); Total Protein 6.4 g/dL (6.4-8.9); eGFR For African Americans > 60 (> 60); eGFR For Non-African Americans > 60 (> 60)
[2017-07-09] MEDS ORDERED: *HR* Morphine 2 MG/ML SYRINGE IVP ONE (16:18)
[2017-07-09] MEDS ORDERED: *HR* Promethazine 25 MG/ML VIAL IVP ONE (16:19)
[2017-07-09 16:28] LABS: Bilirubin,Urine Negative (Negative); Blood,Urine Negative (Negative); Clarity,Urine Clear (Clear); Color,Urine Yellow (Yellow); Glucose,Urine (UA) >=1000 mg/dL (Normal); Ketones,Urine Negative (Negative); Leukocyte Esterase,Urine Negative (Negative); Nitrite,Urine Negative (Negative); Protein,Urine Trace mg/dL (Neg-Trace); Specific Gravity,Urine > 1.030 (1.010-1.025); Urobilinogen,Urine Normal (Normal)
[2017-07-09 16:31] LABS: Bacteria,Urine Few per hpf (None-Few); Hyaline Casts,Urine None Seen per lpf (None-Few); RBC,Urine 0-3 per hpf (0-3); Squamous Epithelial Cell,Urine Many per lpf (None-Few)
[2017-07-09] MEDS ORDERED: *HR* HYDROmorphone (PF) 1 MG/ML SYRINGE IVP ONE (18:34)
--- NOTE | 2017-07-09 20:15 | Internal Med History&Physical ---
Date of Encounter: 07/09/17 Time of Encounter: 20:15 Assessment and Plan (1) C. difficile colitis Current visit: No Status: Acute Patient appears comfortable and in no acute distress. Patient is afebrile and not septic. Patient admits nausea but denies any vomiting. Patient appears mildly dehydrated. Her glucose is elevated. Urinalysis not consistent with infection. Abdominal examination shows a abdomen that is soft with tenderness mostly to the upper quadrants. No intra-abdominal pathology seen on CT scan. 1. Initiate contact precautions. 2. Allow patient to drink fluids and give IV fluids. 3. Treat c.diff infection with oral vancomycin. Discontinue the Flagyl (2) Anemia Current visit: Yes Status: Acute Stable chronic anemia when compared to her base line. Will continue to monitor. Qualifiers: Qualified Code(s): D64.9 - Anemia, unspecified Internal Medicine - H&P: HPI Chief complaint: Abdominal pain and C.diff Admitted From: Emergency Dept History of present illness: Ms. Jacome is a 51 year old female with a past medical history of a fib, hypertension, COPD, diabetes, TIA, and CA who presents to the emergency department complaining of abdominal pain and worsening of her C. difficile infection. The patient states that she was recently discharged from the hospital on June 30. However, her insurance did not cover vancomycin so she has been only on Flagyl for treatment since the discharged. She has been on oral vancomycin while she was admitted prior to her visit today. Since her discharge, she complains of worsening abdominal pain, nausea, and continuing diarrhea. She denies any vomiting or any blood in the stores. She admits she still has an appetite but is unable to hold any food down. She admits she takes Flecinide and Pradaxa for her Afib. She admits some chest soreness at this time. She denies any fever, headache, vision changes, shortness of breath, difficulty breathing, constipation, vomiting, blood in her urine, dysuria, numbness and tingling, and any weaknesses. Past Med Surg Social Fam HX - Past Medical History Medical history: atrial fibrillation, COPD, CVA, diabetes, hyperlipidemia, hypertension, myocardial infarction, TIA Psychiatric history: anxiety, depression - Past Surgical History Surgical History: , cholecystectomy - Social History Smoking Status: Never smoker Smokeless Tobacco Status: No Alcohol use: none Drug use: none - Family History Mother Living Status: Hx Family Cardiac Disorders: Yes Hx Family Respiratory Disorders: Yes (copd) Hx Family Cancer: Yes (lung cancer) Hx Family Endocrine Disorder: Yes (DM type II) Father Adopted: No Family Member Ethnicity: Non- Living Status: Hx Family Cardiac Disorders: Yes Hx Family Respiratory Disorders: Yes Hx Family Cancer: Yes (LUNG) Hx Family GI Disorders: No Hx Family Endocrine Disorder: Yes (DM) Hx Family Neuromuscular Disorders: No Hx Family Neurologic Disorders: No Hx Family HEENT Disorders: No Hx Family Autoimmune Disorders: No Internal Medicine - H&P: Meds Aspirin [Adult Low Dose Aspirin EC] 81 mg PO DAILY 10/26/15 [History] Etonogestrel [Nexplanon] 68 mg SQ AD 10/26/15 [History] metFORMIN [Glucophage] 1,000 mg PO BIDWM 10/26/15 [History] clonazePAM [Klonopin] 0.5 mg PO HS 03/04/17 [History] Dabigatran Etexilate Mesylate [Pradaxa] 150 mg PO BID 05/12/17 [History] Flecainide 100 mg PO BID 05/12/17 [History] Omeprazole [PriLOSEC] 40 mg PO DAILY 05/12/17 [History] Atorvastatin Calcium [Lipitor] 20 mg PO HS 06/03/17 [History] Sertraline [Zoloft] 300 mg PO DAILY 06/03/17 [History] traZODone [TraZODone] 50 mg PO HS PRN 06/03/17 [History] Lisinopril [Zestril] 5 mg PO DAILY tablet 06/20/17 [Rx] Metoprolol [Lopressor] 12.5 mg PO BID tablet 06/28/17 [Rx] Albuterol Sulfate [Ventolin Hfa] 2 puff IH Q4H PRN 07/09/17 [History] 3 Allergy/AdvReac Type Severity Reaction Status Date / Time No Known Allergies Allergy Verified 06/30/17 15:31 All Systems PM: A 10-system review of systems was performed and is negative for pertinent findings except as documented above in the HPI. - Constitutional Vitals: Temp Pulse Resp BP Pulse Ox 98.3 F 87 16 135/80 94 07/09/17 19:42 07/09/17 19:42 07/09/17 19:42 07/09/17 19:42 07/09/17 19:42 General appearance: Present: cooperative, obese, answers questions appropriately Exam: Patient mouth appears dry. - Head Head exam: Present: atraumatic, normocephalic - Eye Eye exam: Present: PERRL, conjuntiva pink, sclera anicteric Pupils: Present: PERRL - Neck Neck exam general surgery: Present: supple, trachea midline. Absent: lymphadenopathy - Respiratory Respiratory exam: Present: CTAB. Absent: accessory muscle use, rales, respiratory distress, rhonchi, wheezes - Cardiovascular Cardiovascular exam: Present: RRR, +S1, +S2. Absent: diastolic murmur, gallop, rubs, systolic murmur - GI/Abdominal GI/Abdominal exam: Present: normal bowel sounds, soft, tenderness, no peritoneal signs. Absent: distended - Extremities Exam Extremities exam: Present: warm, radial pulses palpable and symmetrical. Absent : calf tenderness, cyanotic, pedal edema - Neurological Exam Neurological exam: Present: CN II-XII intact, oriented X3, no focal deficits. Absent: pronater drift, facial droop, speech deficit - Skin Skin exam: Present: dry, intact Internal Med - H&P Results - Labs CBC & Chem 7: 07/09/17 15:19 07/09/17 15:19
[2017-07-09] MEDS ORDERED: Ondansetron 4 MG/2 ML VIAL IVP PRN (20:34)
[2017-07-09] MEDS ORDERED: Naloxone 0.4 MG/ML INJ IVP PRN (20:34)
[2017-07-09] MEDS ORDERED: D5% in Water 1,000 ML IVC PRN (20:42)
[2017-07-09] MEDS ORDERED: Dextrose Gel 15 GM/37.5 ML TUBE PO PRN ×2 (20:42)
[2017-07-09] MEDS ORDERED: *HR* Dextrose 50 % in Water (Syg) 50 ML SYRINGE IVP PRN (20:42)
[2017-07-09] MEDS ORDERED: 0.9 % Sodium Chloride 1,000 ML IVC SCH (20:45)
[2017-07-09] MEDS: Insulin LISPRO 300 UNITS/3 ML VIAL SQ SCH (21:44)
[2017-07-09] MEDS: *HR* Morphine 2 MG/ML SYRINGE IVP PRN (21:45)
[2017-07-09] MEDS ORDERED: ETONOGESTREL 68 MG VG SCH (22:00)
[2017-07-09] MEDS: Vancomycin Oral Soln 250 MG/5 ML UDC PO SCH (23:18)
[2017-07-09] MEDS: traZODone 50 MG TABLET PO PRN (23:24)
[2017-07-10] MEDS: *HR* Morphine 2 MG/ML SYRINGE IVP PRN ×5 (01:51→21:10)
[2017-07-10 04:33] LABS: BUN/Creatinine Ratio 17 (6-26); Blood Urea Nitrogen 8 mg/dL (6-20); Carbon Dioxide 23 mEq/L (23-29); Chloride 107 mEq/L (98-107); Glucose 286 mg/dL (70-105); Magnesium 1.2 mg/dL (1.6-2.6); Osmolality,Calculated 295 (280-300); Potassium 3.2 mEq/L (3.5-5.1); Sodium 138 mEq/L (136-145); eGFR For African Americans > 60 (> 60); eGFR For Non-African Americans > 60 (> 60)
--- NOTE | 2017-07-10 08:13 | Internal Med Progress Note ---
<Gokul Purdy - Last Filed: 07/10/17 13:19> Date of Encounter: 07/10/17 Time of Encounter: 08:13 - Assessment and plan (1) Recurrent Clostridium difficile diarrhea Current Visit: Yes Status: Acute Assessment and plan: Recurrent C. difficile infection - patient reports multiple bouts this year Patient was recently discharged from [facility] on 2016 - On discharge, her insurance would not cover vancomycin was started on Flagyl Patient again reports bouts of diarrhea Afebrile WBC 6.[address] and ultrasound in the ED shows no acute findings Plan: Contact precautions IV fluid replacement Electrolyte protocol Oral vancomycin Recheck CBC in the morning Social work consult for insurance concerns Discharge planning: Likely home in 24-48 hours (2) Abdominal pain Current Visit: Yes Status: Acute Assessment and plan: Pain control See above for plan Qualifiers: Abdominal location: generalized Qualified Code(s): R10.84 - Generalized abdominal pain (3) Diabetes mellitus Current Visit: No Status: Chronic Assessment and plan: SSI for coverage Diabetic diet Qualifiers: Diabetes mellitus type: type 2 Diabetes mellitus complication status: without complication Diabetes mellitus assistant winemaker insulin use: with assistant winemaker use Qualified Code(s): E11.9 - Type 2 diabetes mellitus without complications ; Z79.4 - long-term (current) use of insulin; Z79.4 - long-term (current) use of insulin; Z79.4 - long-term (current) use of insulin; Z79.4 - long-term ( current) use of insulin (4) HTN (hypertension) Current Visit: No Status: Chronic Assessment and plan: BP 128/74 today. Continue Zestril and Lopressor unchanged. Qualifiers: Hypertension type: essential hypertension Qualified Code(s): I10 - Essential (primary) hypertension (5) COPD (chronic obstructive pulmonary disease) Current Visit: No Status: Chronic Assessment and plan: Stable at this time PRN home meds for now Qualifiers: COPD type: chronic bronchitis Chronic bronchitis type: unspecified Qualified Code(s): J42 - Unspecified chronic bronchitis (6) Paroxysmal atrial fibrillation Current Visit: No Status: Acute Assessment and plan: Appears to be stable at this time Continue home regimen with Pradaxa and Flecinide Telemetry (7) Obesity (BMI 30-39.9) Current Visit: No Status: Chronic (8) Hypomagnesemia Current Visit: No Status: Acute Assessment and plan: mag 1.2. replacing (9) Hypokalemia Current Visit: Yes Status: Acute Assessment and plan: K 3.2. replacing (10) DVT prophylaxis Current Visit: No Status: Acute Assessment and plan: Taking Pradaxa - Subjective Interval history: Patient is resting comfortably in bed this morning Still complaining of diffuse abdominal pain radiating to her lumbar region No concerns overnight per nursing denies any fevers, chest pain, SOB, palpiations, n/v or LE edema - Constitutional Vitals: Temp Pulse Resp BP Pulse Ox 98.6 F 85 17 128/74 94 07/10/17 07:02 07/10/17 07:02 07/10/17 07:02 07/10/17 07:02 07/10/17 07:02 General appearance: Present: cooperative, A&O X 3, no acute distress, obese, answers questions appropriately - Head Head exam: Present: atraumatic, normocephalic - Eye Eye exam: Present: EOMI, normal appearance, conjuntiva pink, sclera anicteric - ENT ENT exam: Present: mucous membranes moist - Neck Neck exam general surgery: Present: supple, trachea midline - Respiratory Respiratory exam: Present: CTAB. Absent: respiratory distress - Cardiovascular Cardiovascular exam: Present: RRR, +S1, +S2 - GI/Abdominal GI/Abdominal exam: Present: normal bowel sounds, tenderness (diffuse). Absent: distended, guarding - Extremities Exam Extremities exam: Present: warm. Absent: pedal edema - Neurological Exam Neurological exam: Present: altered, oriented X3, no focal deficits - Psychiatric Psychiatric exam: Present: normal affect, normal mood - Skin Skin exam: Present: dry, warm. Absent: pallor Internal Medicine: Result - Labs CBC & Chem 7: 07/09/17 15:19 07/10/17 03:56 Labs: BMP 07/10/17 03:56 Sodium 138 Potassium 3.2 L Chloride 107 Carbon Dioxide 23 BUN 8 Creatinine 0.48 L Glucose 286 H Calcium 8.0 L Consult Discharge Plan - Plan Referrals: Joanne Paez MD [Primary Care Provider] - <Eddy Taylor - Last Filed: 07/10/17 18:33> Date of Encounter: 07/10/17 - Constitutional Vitals: Temp Pulse Resp BP Pulse Ox 98.6 F 68 16 129/74 95 07/10/17 15:21 07/10/17 15:21 07/10/17 15:21 07/10/17 15:21 07/10/17 15:21 Internal Medicine: Result - Labs CBC & Chem 7: 07/09/17 15:19 07/10/17 03:56 Labs: BMP 07/10/17 03:56 Sodium 138 Potassium 3.2 L Chloride 107 Carbon Dioxide 23 BUN 8 Creatinine 0.48 L Glucose 286 H Calcium 8.0 L - Attending Attestation I conducted a face to face diagnostic evaluation of this patient and my medical decision-making was reviewed with the Resident Physician, Dr Gokul Purdy. I agree with the documented findings, disposition and treatment plan as described except to the extent set forth below: Assessment: Recurrent C. difficile colitis in spite of appropriate treatment with oral Flagyl and treatment of recurrence with Fidaxomicin. Plan: Continue oral vancomycin 250 mg every 6 hours. Monitor clinically. Trend WBC daily. Eddy Taylor MD
[2017-07-10] MEDS: *HR* Dabigatran 150 MG CAPSULE PO SCH ×2 (08:18→21:08)
[2017-07-10] MEDS: Aspirin Enteric Coated 81 MG Tablet PO SCH (08:18)
[2017-07-10] MEDS: Vancomycin Oral Soln 250 MG/5 ML UDC PO SCH ×4 (08:19→21:08)
[2017-07-10] MEDS: Insulin LISPRO 300 UNITS/3 ML VIAL SQ SCH ×4 (08:30→21:08)
[2017-07-10] MEDS: Magnesium Oxide 400 MG TABLET PO SCH (12:12)
[2017-07-10] MEDS ORDERED: Potassium Citrate 10 MEQ TABLET.ER PO SCH (15:00)
[2017-07-10] MEDS ORDERED: Magnesium Sulfate 1 GM in D5% in Water 100 ML IVPB ONE (16:00)
[2017-07-10] MEDS: clonazePAM 0.5 MG TABLET PO SCH (20:03)
[2017-07-11] MEDS: Acetaminophen 325 MG TABLET PO PRN (01:50)
[2017-07-11] MEDS ORDERED: Ketorolac 15 MG/ML VIAL IVP ONE (01:53)
[2017-07-11 06:08] LABS: Basophils % 0.4 %; Eosinophils # 0.3 K/mcL (0.0-0.6); Eosinophils % 4.1 %; Hematocrit 34.5 % (35.3-44.9); Immature Granulocytes % 0.6 % (0-4); Lymphocytes # 1.5 K/mcL (0.6-4.6); Lymphocytes % 21.1 %; Mean Corpuscular HGB Conc 31.9 g/dL (31.6-35.5); Mean Corpuscular Hemoglobin 25.1 pg (28.0-33.3); Mean Corpuscular Volume 78.6 fL (83.0-100.0); Mean Platelet Volume 10.6 fL (9.4-12.4); Monocytes # 0.3 K/mcL (0.0-1.3); Monocytes % 3.6 %; Neutrophils # 4.8 K/mcL (1.6-8.9); Platelet Count 208 K/mcL (140-400); Red Blood Count 4.39 M/mcL (3.82-4.97); Red Cell Distribution Width 15.1 % (11.5-14.5); Segmented Neutrophils % 70.2 %
[2017-07-11 06:21] LABS: BUN/Creatinine Ratio 17 (6-26); Blood Urea Nitrogen 8 mg/dL (6-20); Calcium 8.8 mg/dL (8.6-10.3); Carbon Dioxide 27 mEq/L (23-29); Chloride 105 mEq/L (98-107); Glucose 247 mg/dL (70-105); Osmolality,Calculated 291 (280-300); Potassium 4.1 mEq/L (3.5-5.1); Sodium 137 mEq/L (136-145); eGFR For African Americans > 60 (> 60); eGFR For Non-African Americans > 60 (> 60)
[2017-07-11] MEDS: Magnesium Oxide 400 MG TABLET PO SCH (08:12)
[2017-07-11] MEDS: *HR* Dabigatran 150 MG CAPSULE PO SCH ×2 (08:12→20:29)
[2017-07-11] MEDS: Aspirin Enteric Coated 81 MG Tablet PO SCH (08:13)
[2017-07-11] MEDS: *HR* Morphine 2 MG/ML SYRINGE IVP PRN ×4 (08:14→20:30)
[2017-07-11] MEDS: Vancomycin Oral Soln 250 MG/5 ML UDC PO SCH ×4 (08:15→20:29)
[2017-07-11] MEDS: Insulin LISPRO 300 UNITS/3 ML VIAL SQ SCH ×4 (08:15→20:34)
--- NOTE | 2017-07-11 08:46 | Internal Med Progress Note ---
<Gokul Purdy - Last Filed: 07/11/17 11:44> Date of Encounter: 07/11/17 Time of Encounter: 08:44 - Assessment and plan (1) Recurrent Clostridium difficile diarrhea Current Visit: Yes Status: Acute Assessment and plan: Recurrent C. difficile infection - patient reports multiple bouts this year Patient was recently discharged from [facility] on 2016 - On discharge, her insurance would not cover vancomycin was started on Flagyl Abdominal CT and ultrasound in the ED shows no acute findings Patient again reports bouts of diarrhea Afebrile WBC 6.9 Plan: Contact precautions IV fluid replacement Electrolyte protocol Increased oral vancomycin to 250mg Social work consult for insurance concerns: Prior to discharge: Will need PT/OT evaluation, possible O2 qualification and pharmacy for cost of Rx (2) Abdominal pain Current Visit: Yes Status: Acute Assessment and plan: Pain control See above for plan Qualifiers: Abdominal location: generalized Qualified Code(s): R10.84 - Generalized abdominal pain (3) Diabetes mellitus Current Visit: No Status: Chronic Assessment and plan: SSI for coverage Diabetic diet Qualifiers: Diabetes mellitus type: type 2 Diabetes mellitus complication status: without complication Diabetes mellitus terminal operations manager insulin use: with custodial use Qualified Code(s): E11.9 - Type 2 diabetes mellitus without complications ; Z79.4 - termite exterminator helper (current) use of insulin; Z79.4 - termite exterminator helper (current) use of insulin; Z79.4 - termite exterminator helper (current) use of insulin; Z79.4 - termite exterminator helper ( current) use of insulin (4) HTN (hypertension) Current Visit: No Status: Chronic Assessment and plan: BP 147/83 today. Continue Zestril and Lopressor unchanged. Qualifiers: Hypertension type: essential hypertension Qualified Code(s): I10 - Essential (primary) hypertension (5) COPD (chronic obstructive pulmonary disease) Current Visit: No Status: Chronic Assessment and plan: Stable at this time Home meds for now May need O2 qualification prior to discharge Qualifiers: COPD type: chronic bronchitis Chronic bronchitis type: unspecified Qualified Code(s): J42 - Unspecified chronic bronchitis (6) Paroxysmal atrial fibrillation Current Visit: No Status: Acute Assessment and plan: Appears to be stable at this time Continue home regimen with Pradaxa and Flecinide Telemetry (7) Obesity (BMI 30-39.9) Current Visit: No Status: Chronic (8) DVT prophylaxis Current Visit: No Status: Acute Assessment and plan: Taking Pradaxa - Subjective Interval history: Patient is complaining of diffuse abdominal pain in bed this morning No concerns overnight per nursing Still having diarrhea Reports that she was fired from her job d/t excessive admissions to the hospital with time away Denies any fevers, chest pain, SOB, palpiations, n/v or LE edema - Constitutional Vitals: Temp Pulse Resp BP Pulse Ox 98.2 F 58 15 147/83 98 07/11/17 07:55 07/11/17 07:55 07/11/17 07:55 07/11/17 07:55 07/11/17 07:55 General appearance: Present: cooperative, A&O X 3, no acute distress, obese, answers questions appropriately - Head Head exam: Present: atraumatic, normocephalic - Eye Eye exam: Present: EOMI, normal appearance, conjuntiva pink, sclera anicteric - ENT ENT exam: Present: mucous membranes moist - Neck Neck exam general surgery: Present: supple, trachea midline - Respiratory Respiratory exam: Present: CTAB. Absent: respiratory distress - Cardiovascular Cardiovascular exam: Present: RRR, +S1, +S2 - GI/Abdominal GI/Abdominal exam: Present: normal bowel sounds, soft, tenderness (diffuse). Absent: distended, firm, rigid - Extremities Exam Extremities exam: Present: warm. Absent: calf tenderness, cyanotic, pedal edema - Neurological Exam Neurological exam: Present: alert, oriented X3. Absent: no focal deficits - Psychiatric Psychiatric exam: Present: depressed - Skin Skin exam: Present: dry, warm Internal Medicine: Result - Labs CBC & Chem 7: 07/11/17 05:18 07/11/17 05:18 Labs: Short CBC 07/11/17 Range/Units 05:18 WBC 6.9 (4.3-11.1) K/mcL Hgb 11.0 L (11.5-15.4) g/dL Hct 34.5 L (35.3-44.9) % Plt Count 208 (140-400) K/mcL Neutrophils # 4.8 (1.6-8.9) K/mcL BMP 07/11/17 05:18 Sodium 137 Potassium 4.1 Chloride 105 Carbon Dioxide 27 BUN 8 Creatinine 0.47 L Glucose 247 H Calcium 8.8 Consult Discharge Plan - Plan Referrals: Joanne Paez MD [Primary Care Provider] - <Eddy Taylor - Last Filed: 07/11/17 17:50> Date of Encounter: 07/11/17 - Constitutional Vitals: Temp Pulse Resp BP Pulse Ox 98.4 F 71 16 121/77 96 07/11/17 16:20 07/11/17 16:20 07/11/17 16:20 07/11/17 16:20 07/11/17 16:20 Internal Medicine: Result - Labs CBC & Chem 7: 07/11/17 05:18 07/11/17 05:18 Labs: Short CBC 07/11/17 Range/Units 05:18 WBC 6.9 (4.3-11.1) K/mcL Hgb 11.0 L (11.5-15.4) g/dL Hct 34.5 L (35.3-44.9) % Plt Count 208 (140-400) K/mcL Neutrophils # 4.8 (1.6-8.9) K/mcL BMP 07/11/17 05:18 Sodium 137 Potassium 4.1 Chloride 105 Carbon Dioxide 27 BUN 8 Creatinine 0.47 L Glucose 247 H Calcium 8.8 - Attending Attestation I conducted a face to face diagnostic evaluation of this patient and my medical decision-making was reviewed with the Resident Physician, Dr Gokul Purdy. I agree with the documented findings, disposition and treatment plan as described except to the extent set forth below: She reports worsening diarrhea with 15 bowel movements today already, associated with abdominal pain. Abdomen is soft diffusely tender to palpation with no guarding or rebound tenderness. Plan: Continue with vancomycin at increased dose of 250 mg oral 4 times a day. Monitor clinically for the next 24 hours. if no improvement can increase to 500 mg or decide to transfer to tertiary care center for stool transplant. Eddy Taylor MD
[2017-07-11] MEDS: clonazePAM 0.5 MG TABLET PO SCH (20:24)
[2017-07-12] MEDS: *HR* Morphine 2 MG/ML SYRINGE IVP PRN ×6 (01:04→22:11)
[2017-07-12 06:04] LABS: BUN/Creatinine Ratio 19 (6-26); Blood Urea Nitrogen 10 mg/dL (6-20); Calcium 8.9 mg/dL (8.6-10.3); Carbon Dioxide 25 mEq/L (23-29); Chloride 106 mEq/L (98-107); Glucose 270 mg/dL (70-105); Magnesium 1.6 mg/dL (1.6-2.6); Osmolality,Calculated 295 (280-300); Potassium 4.1 mEq/L (3.5-5.1); Sodium 138 mEq/L (136-145); eGFR For African Americans > 60 (> 60); eGFR For Non-African Americans > 60 (> 60)
--- NOTE | 2017-07-12 07:40 | Internal Med Progress Note ---
<Gokul Purdy - Last Filed: 07/12/17 12:00> Date of Encounter: 07/12/17 Time of Encounter: 07:39 - Assessment and plan (1) Recurrent Clostridium difficile diarrhea Current Visit: Yes Status: Acute Assessment and plan: Recurrent C. difficile infection - patient reports multiple bouts this year Patient was recently discharged from [facility] on 2016 - On discharge, her insurance would not cover vancomycin was started on Flagyl Abdominal CT and ultrasound in the ED shows no acute findings Afebrile, no leukocytosis Soft formed stools this morning per patient Plan: Contact precautions IV fluid replacement Electrolyte protocol Increased oral vancomycin to 250mg - Appears to be responding today with softened BM - Pending on improvement after today, we will need to increase to 500mg or transfer for fecal transplant Social work consult for insurance concerns: Prior to discharge: Will need PT/OT evaluation, possible O2 qualification and pharmacy for cost of Rx (2) Abdominal pain Current Visit: Yes Status: Acute Assessment and plan: Pain control See above for plan Qualifiers: Abdominal location: generalized Qualified Code(s): R10.84 - Generalized abdominal pain (3) Diabetes mellitus Current Visit: No Status: Chronic Assessment and plan: BS running 200-300 Increased to medium dose SSI for coverage Diabetic diet Qualifiers: Diabetes mellitus type: type 2 Diabetes mellitus complication status: without complication Diabetes mellitus mcfp insulin use: with mcfp use Qualified Code(s): E11.9 - Type 2 diabetes mellitus without complications ; Z79.4 - nursing home (current) use of insulin; Z79.4 - terminal operations supervisor (current) use of insulin; Z79.4 - nursing home (current) use of insulin; Z79.4 - terminal operations supervisor ( current) use of insulin (4) HTN (hypertension) Current Visit: No Status: Chronic Assessment and plan: BP 121/74 today. Continue Zestril and Lopressor unchanged. Qualifiers: Hypertension type: essential hypertension Qualified Code(s): I10 - Essential (primary) hypertension (5) COPD (chronic obstructive pulmonary disease) Current Visit: No Status: Chronic Assessment and plan: Stable at this time No SOB Home meds for now May need O2 qualification - 6min walk ordered Qualifiers: COPD type: chronic bronchitis Chronic bronchitis type: unspecified Qualified Code(s): J42 - Unspecified chronic bronchitis (6) Paroxysmal atrial fibrillation Current Visit: No Status: Acute Assessment and plan: Appears to be stable at this time Continue home regimen with Pradaxa and Flecinide Telemetry (7) Obesity (BMI 30-39.9) Current Visit: No Status: Chronic (8) DVT prophylaxis Current Visit: No Status: Acute Assessment and plan: Taking Pradaxa - Subjective Interval history: Patient is complaining of diffuse abdominal pain in bed this morning No concerns overnight per nursing Still having diarrhea but did note to have soft forming BM this morning Reports that she was fired from her job d/t excessive admissions to the hospital with time away Denies any fevers, chest pain, SOB, palpiations, n/v or LE edema - Constitutional Vitals: Temp Pulse Resp BP Pulse Ox 97.8 F 57 16 142/80 96 07/12/17 03:59 07/12/17 03:59 07/12/17 03:59 07/12/17 03:59 07/12/17 03:59 General appearance: Present: cooperative, A&O X 3, no acute distress, obese, answers questions appropriately - Head Head exam: Present: atraumatic, normocephalic - Eye Eye exam: Present: EOMI, normal appearance, conjuntiva pink, sclera anicteric - ENT ENT exam: Present: mucous membranes moist - Neck Neck exam general surgery: Present: supple, trachea midline - Respiratory Respiratory exam: Present: CTAB. Absent: respiratory distress - Cardiovascular Cardiovascular exam: Present: RRR, +S1, +S2 - GI/Abdominal GI/Abdominal exam: Present: normal bowel sounds, soft, tenderness (diffuse). Absent: distended, firm, guarding, rebound - Extremities Exam Extremities exam: Present: warm. Absent: calf tenderness, pedal edema, tenderness - Neurological Exam Neurological exam: Present: alert, oriented X3, no focal deficits - Psychiatric Psychiatric exam: Present: depressed (lost her job recently) - Skin Skin exam: Present: dry, normal color, warm Internal Medicine: Result - Labs CBC & Chem 7: 07/11/17 05:18 07/12/17 05:15 Labs: BMP 07/12/17 05:15 Sodium 138 Potassium 4.1 Chloride 106 Carbon Dioxide 25 BUN 10 Creatinine 0.53 L Glucose 270 H Calcium 8.9 Consult Discharge Plan - Plan Referrals: Joanne Paez MD [Primary Care Provider] - 07/19/17 10:45 am <Saurav Ornelas - Last Filed: 07/12/17 17:36> Date of Encounter: 07/12/17 - Assessment and plan (1) Recurrent Clostridium difficile diarrhea Current Visit: Yes Status: Acute (2) Abdominal pain Current Visit: Yes Status: Acute Assessment and plan: Monitor closely Qualifiers: Abdominal location: generalized Qualified Code(s): R10.84 - Generalized abdominal pain (3) Diabetes mellitus Current Visit: No Status: Chronic Qualifiers: Diabetes mellitus type: type 2 Diabetes mellitus complication status: without complication Diabetes mellitus mcfp insulin use: with terminal operations supervisor use Qualified Code(s): E11.9 - Type 2 diabetes mellitus without complications ; Z79.4 - nursing home (current) use of insulin; Z79.4 - terminal operations supervisor (current) use of insulin; Z79.4 - nursing home (current) use of insulin; Z79.4 - terminal operations supervisor ( current) use of insulin (4) HTN (hypertension) Current Visit: No Status: Chronic Qualifiers: Hypertension type: essential hypertension Qualified Code(s): I10 - Essential (primary) hypertension (5) COPD (chronic obstructive pulmonary disease) Current Visit: No Status: Chronic Qualifiers: COPD type: chronic bronchitis Chronic bronchitis type: unspecified Qualified Code(s): J42 - Unspecified chronic bronchitis (6) Paroxysmal atrial fibrillation Current Visit: No Status: Chronic - Constitutional Vitals: Temp Pulse Resp BP Pulse Ox 98.1 F 54 15 116/73 95 07/12/17 12:17 07/12/17 12:17 07/12/17 12:17 07/12/17 12:17 07/12/17 12:17 Internal Medicine: Result - Labs CBC & Chem 7: 07/11/17 05:18 07/12/17 05:15 Labs: BMP 07/12/17 05:15 Sodium 138 Potassium 4.1 Chloride 106 Carbon Dioxide 25 BUN 10 Creatinine 0.53 L Glucose 270 H Calcium 8.9 - Attending Attestation I examined this patient and my medical decision-making was reviewed with the Resident Physician on 07/12/17. I agree with the documented findings, disposition and treatment plan as described except to the extent set forth below. Ms aJcome is currently admitted for recurrent symptomatic C diff. She remains moderate to high risk due to potential for worsening clinical status. Ms Jacome is having some abdominal discomfort. Had some formed stool today. No fever or chills. No cough or other symptoms at this time. Exam Alert. Comfortable in bed Mucus membranes dry Heart reg No wheeze Abd slightly distended. Soft. Diffuse tenderness without peritoneal signs. No tympany noted. No edema I/P 1. Recurrent c diff - appears to be improving on PO Vanc (liquid). Will try to discharge on liquid Vanc due to cost. 2. Abd pain - PRN meds. No sign of megacolon at this time. Further diagnoses and plan as above.
[2017-07-12] MEDS: Insulin LISPRO 300 UNITS/3 ML VIAL SQ SCH ×4 (08:35→22:13)
[2017-07-12] MEDS: Vancomycin Oral Soln 250 MG/5 ML UDC PO SCH ×4 (08:36→20:32)
[2017-07-12] MEDS: Aspirin Enteric Coated 81 MG Tablet PO SCH (08:36)
[2017-07-12] MEDS: *HR* Dabigatran 150 MG CAPSULE PO SCH ×2 (08:36→20:30)
[2017-07-12] MEDS: Magnesium Oxide 400 MG TABLET PO SCH (08:36)
[2017-07-12] MEDS: clonazePAM 0.5 MG TABLET PO SCH (20:30)
[2017-07-12] MEDS: Acetaminophen 325 MG TABLET PO PRN (22:12)
[2017-07-12] MEDS: traZODone 50 MG TABLET PO PRN (22:12)
[2017-07-13] MEDS: Ibuprofen 400 MG TABLET PO PRN (01:58)
[2017-07-13] MEDS: *HR* Morphine 2 MG/ML SYRINGE IVP PRN ×5 (01:58→21:18)
[2017-07-13 05:41] LABS: BUN/Creatinine Ratio 19 (6-26); Blood Urea Nitrogen 11 mg/dL (6-20); Calcium 8.8 mg/dL (8.6-10.3); Carbon Dioxide 24 mEq/L (23-29); Chloride 105 mEq/L (98-107); Glucose 226 mg/dL (70-105); Osmolality,Calculated 288 (280-300); Potassium 4.5 mEq/L (3.5-5.1); Sodium 136 mEq/L (136-145); eGFR For African Americans > 60 (> 60); eGFR For Non-African Americans > 60 (> 60)
[2017-07-13 07:09] LABS: Basophils % 0.4 %; Eosinophils # 0.3 K/mcL (0.0-0.6); Eosinophils % 3.5 %; Hematocrit 33.9 % (35.3-44.9); Hemoglobin 10.9 g/dL (11.5-15.4); Immature Granulocytes % 0.8 % (0-4); Immature Platelets 3.3 % (1.1-6.1); Lymphocytes # 1.6 K/mcL (0.6-4.6); Lymphocytes % 21.5 %; Mean Corpuscular HGB Conc 32.2 g/dL (31.6-35.5); Mean Corpuscular Hemoglobin 24.8 pg (28.0-33.3); Mean Corpuscular Volume 77.2 fL (83.0-100.0); Mean Platelet Volume 10.4 fL (9.4-12.4); Monocytes # 0.3 K/mcL (0.0-1.3); Monocytes % 3.8 %; Neutrophils # 5.2 K/mcL (1.6-8.9); Platelet Count 213 K/mcL (140-400); Red Blood Count 4.39 M/mcL (3.82-4.97); Red Cell Distribution Width 15.3 % (11.5-14.5)
[2017-07-13] MEDS: Insulin LISPRO 300 UNITS/3 ML VIAL SQ SCH ×4 (07:38→21:18)
[2017-07-13] MEDS: Aspirin Enteric Coated 81 MG Tablet PO SCH (09:33)
[2017-07-13] MEDS: Magnesium Oxide 400 MG TABLET PO SCH (09:33)
[2017-07-13] MEDS: *HR* Dabigatran 150 MG CAPSULE PO SCH ×2 (09:33→21:20)
[2017-07-13] MEDS: Vancomycin Oral Soln 250 MG/5 ML UDC PO SCH ×4 (09:34→21:19)
--- NOTE | 2017-07-13 17:59 | Internal Med Progress Note ---
Date of Encounter: 07/13/17 Time of Encounter: 13:55 - Assessment and plan (1) Recurrent Clostridium difficile diarrhea Current Visit: Yes Status: Acute Assessment and plan: Seems to be slowly improving on oral Vancomycin. Unable to get compounded liquid at this time and will need to wait till our pharmacy opens. (2) Abdominal pain Current Visit: Yes Status: Acute Assessment and plan: Somewhat better today. Continue current pain management. Qualifiers: Abdominal location: generalized Qualified Code(s): R10.84 - Generalized abdominal pain (3) Diabetes mellitus Current Visit: No Status: Chronic Assessment and plan: Still uncontrolled. Will adjust coverage. Qualifiers: Diabetes mellitus type: type 2 Diabetes mellitus complication status: with hyperglycemia Diabetes mellitus detention insulin use: with termite helper use Qualified Code(s): E11.65 - Type 2 diabetes mellitus with hyperglycemia; Z79.4 - termite helper (current) use of insulin; Z79.4 - termite helper (current) use of insulin ; Z79.4 - termite helper (current) use of insulin; Z79.4 - termite helper (current) use of insulin (4) HTN (hypertension) Current Visit: No Status: Chronic Assessment and plan: Continue Zestril and Lopressor unchanged. Qualifiers: Hypertension type: essential hypertension Qualified Code(s): I10 - Essential (primary) hypertension (5) COPD (chronic obstructive pulmonary disease) Current Visit: No Status: Chronic Assessment and plan: Stable at this time No SOB Home meds for now Qualifiers: COPD type: chronic bronchitis Chronic bronchitis type: unspecified Qualified Code(s): J42 - Unspecified chronic bronchitis (6) Paroxysmal atrial fibrillation Current Visit: No Status: Chronic Assessment and plan: No issues at this time. - Subjective Interval history: Ms Jacome is currently admitted for recurrent C diff infection/diarrhea. She remains moderate risk due to potential for worsening clinical status. Ms Jacome is having "soft not runny" stools. Tolerating liquid Vancomycin. Tylenol/motrin helps abdominal pain. No fever or chills. Waiting to speak to SW regarding social security. - Constitutional Vitals: Temp Pulse Resp BP Pulse Ox 98.5 F 53 16 125/54 96 07/13/17 15:50 07/13/17 15:50 07/13/17 15:50 07/13/17 15:50 12/30/17 15:50 General appearance: Present: cooperative, A&O X 3, obese, answers questions appropriately - Head Head exam: Present: normocephalic - Eye Eye exam: Present: EOMI, conjuntiva pink - ENT ENT exam: Present: mucous membranes dry - Respiratory Respiratory exam: Present: CTAB. Absent: rales, rhonchi, wheezes - Cardiovascular Cardiovascular exam: Present: RRR. Absent: tachycardia - GI/Abdominal GI/Abdominal exam: Present: soft. Absent: tenderness (Less tenderness today.) - Extremities Exam Extremities exam: Present: warm. Absent: tenderness - Neurological Exam Neurological exam: Present: alert, oriented X3, no focal deficits Internal Medicine: Result - Labs CBC & Chem 7: 07/13/17 06:59 07/13/17 04:55 Labs: Short CBC 07/13/17 Range/Units 06:59 WBC 7.4 (4.3-11.1) K/mcL Hgb 10.9 L (11.5-15.4) g/dL Hct 33.9 L (35.3-44.9) % Plt Count 213 (140-400) K/mcL Neutrophils # 5.2 (1.6-8.9) K/mcL BMP 07/13/17 04:55 Sodium 136 Potassium 4.5 Chloride 105 Carbon Dioxide 24 BUN 11 Creatinine 0.57 L Glucose 226 H Calcium 8.8 Consult Discharge Plan - Plan Referrals: Joanne Paez MD [Primary Care Provider] - 07/19/17 10:45 am
[2017-07-13] MEDS: clonazePAM 0.5 MG TABLET PO SCH (21:20)
[2017-07-14] MEDS: *HR* Morphine 2 MG/ML SYRINGE IVP PRN ×6 (01:25→23:46)
[2017-07-14] MEDS: Ibuprofen 400 MG TABLET PO PRN (03:04)
[2017-07-14] MEDS: Aspirin Enteric Coated 81 MG Tablet PO SCH (08:01)
[2017-07-14] MEDS: Vancomycin Oral Soln 250 MG/5 ML UDC PO SCH ×4 (08:01→20:49)
[2017-07-14] MEDS: *HR* Metformin 500 MG TABLET PO SCH ×2 (08:02→16:53)
[2017-07-14] MEDS: Magnesium Oxide 400 MG TABLET PO SCH (08:02)
[2017-07-14] MEDS: *HR* Dabigatran 150 MG CAPSULE PO SCH ×2 (08:03→20:47)
[2017-07-14] MEDS: Insulin LISPRO 300 UNITS/3 ML VIAL SQ SCH ×4 (08:03→22:45)
[2017-07-14] MEDS ORDERED: Simethicone 80 MG TAB.CHEW PO PRN (13:35)
--- NOTE | 2017-07-14 18:23 | Internal Med Progress Note ---
Date of Encounter: 07/14/17 Time of Encounter: 11:15 - Assessment and plan (1) Recurrent Clostridium difficile diarrhea Current Visit: Yes Status: Acute Assessment and plan: Seems to be slowly improving on oral Vancomycin. Unable to get compounded liquid at this time and will need to wait till our pharmacy opens. Conitinue supportive care. Add simethicone. (2) Abdominal pain Current Visit: Yes Status: Acute Assessment and plan: Somewhat better. Continue current pain management. Qualifiers: Abdominal location: generalized Qualified Code(s): R10.84 - Generalized abdominal pain (3) Diabetes mellitus Current Visit: No Status: Chronic Assessment and plan: Monitoring. Adjust as needed. Qualifiers: Diabetes mellitus type: type 2 Diabetes mellitus complication status: with hyperglycemia Diabetes mellitus jail insulin use: with jail use Qualified Code(s): E11.65 - Type 2 diabetes mellitus with hyperglycemia; Z79.4 - bed bug exterminator (current) use of insulin; Z79.4 - bed bug exterminator (current) use of insulin ; Z79.4 - bed bug exterminator (current) use of insulin; Z79.4 - senior care (current) use of insulin (4) HTN (hypertension) Current Visit: No Status: Chronic Assessment and plan: Continue Zestril and Lopressor unchanged. Qualifiers: Hypertension type: essential hypertension Qualified Code(s): I10 - Essential (primary) hypertension (5) COPD (chronic obstructive pulmonary disease) Current Visit: No Status: Chronic Assessment and plan: Stable at this time No SOB Home meds for now Qualifiers: COPD type: chronic bronchitis Chronic bronchitis type: unspecified Qualified Code(s): J42 - Unspecified chronic bronchitis (6) Paroxysmal atrial fibrillation Current Visit: No Status: Chronic Assessment and plan: No issues at this time. - Subjective Interval history: Ms Jacome is currently admitted for recurrent C diff infection/diarrhea. She remains moderate risk due to potential for worsening clinical status. Ms Jacome stools about the same. She is having a lot of gas in abdomen. Otherwise no new issues. No fever or chills. - Constitutional Vitals: Temp Pulse Resp BP Pulse Ox 97.9 F 60 16 112/71 95 07/14/17 15:05 07/14/17 15:05 07/14/17 15:05 07/14/17 15:05 07/14/17 15:05 General appearance: Present: cooperative, A&O X 3, obese, answers questions appropriately - Head Head exam: Present: normocephalic - Eye Eye exam: Present: EOMI, conjuntiva pink - ENT ENT exam: Present: mucous membranes moist - Respiratory Respiratory exam: Present: CTAB. Absent: rales, rhonchi, wheezes - Cardiovascular Cardiovascular exam: Present: RRR. Absent: tachycardia - GI/Abdominal GI/Abdominal exam: Present: soft. Absent: tenderness - Extremities Exam Extremities exam: Present: warm. Absent: tenderness - Neurological Exam Neurological exam: Present: alert, oriented X3, no focal deficits Internal Medicine: Result - Labs CBC & Chem 7: 07/13/17 06:59 07/13/17 04:55 Consult Discharge Plan - Plan Referrals: Joanne Paez MD [Primary Care Provider] - 07/19/17 10:45 am
[2017-07-14] MEDS: clonazePAM 0.5 MG TABLET PO SCH (20:47)
[2017-07-15] MEDS: *HR* Morphine 2 MG/ML SYRINGE IVP PRN ×5 (04:00→20:52)
[2017-07-15 06:24] LABS: Alanine Aminotransferase 23 Units/L (7-52); Albumin 3.8 g/dL (3.5-5.7); Albumin/Globulin Ratio 1.7 (1.1-2.2); Alkaline Phosphatase 85 Units/L (34-104); Aspartate Amino Transferase 20 Units/L (13-39); BUN/Creatinine Ratio 16 (6-26); Bilirubin,Total 0.4 mg/dL (0.3-1.0); Blood Urea Nitrogen 10 mg/dL (6-20); Calcium 9.2 mg/dL (8.6-10.3); Carbon Dioxide 25 mEq/L (23-29); Chloride 102 mEq/L (98-107); Globulin 2.3 g/dL (2.4-3.5); Glucose 301 mg/dL (70-105); Osmolality,Calculated 290 (280-300); Sodium 135 mEq/L (136-145); Total Protein 6.1 g/dL (6.4-8.9); eGFR For African Americans > 60 (> 60); eGFR For Non-African Americans > 60 (> 60)
[2017-07-15] MEDS: Magnesium Oxide 400 MG TABLET PO SCH (08:16)
[2017-07-15] MEDS: *HR* Metformin 500 MG TABLET PO SCH ×2 (08:16→16:56)
[2017-07-15] MEDS: Aspirin Enteric Coated 81 MG Tablet PO SCH (08:16)
[2017-07-15] MEDS: *HR* Dabigatran 150 MG CAPSULE PO SCH ×2 (08:16→20:52)
[2017-07-15] MEDS: Vancomycin Oral Soln 250 MG/5 ML UDC PO SCH ×4 (08:17→20:57)
[2017-07-15] MEDS: Insulin LISPRO 300 UNITS/3 ML VIAL SQ SCH ×4 (08:18→22:00)
--- NOTE | 2017-07-15 09:04 | Internal Med Progress Note ---
<Gokul Purdy - Last Filed: 07/15/17 12:22> Date of Encounter: 07/15/17 Time of Encounter: 09:01 - Assessment and plan (1) Recurrent Clostridium difficile diarrhea Current Visit: Yes Status: Acute Assessment and plan: Improving on oral Vancomycin. 3 formed BM yesterday Continue supportive care Discharge planning: Likely tomorrow d/t pharmacy closed and unable to get compounded liquid at this time (2) Abdominal pain Current Visit: Yes Status: Acute Assessment and plan: Pain control See above for plan Qualifiers: Abdominal location: generalized Qualified Code(s): R10.84 - Generalized abdominal pain (3) Diabetes mellitus Current Visit: No Status: Chronic Assessment and plan: Monitoring. Adjust as needed. Qualifiers: Diabetes mellitus type: type 2 Diabetes mellitus complication status: with hyperglycemia Diabetes mellitus halfway insulin use: with halfway use Qualified Code(s): E11.65 - Type 2 diabetes mellitus with hyperglycemia; Z79.4 - residential (current) use of insulin; Z79.4 - extermination supervisor (current) use of insulin ; Z79.4 - residential (current) use of insulin; Z79.4 - extermination supervisor (current) use of insulin (4) HTN (hypertension) Current Visit: No Status: Chronic Assessment and plan: Continue Zestril and Lopressor unchanged. VSS Qualifiers: Hypertension type: essential hypertension Qualified Code(s): I10 - Essential (primary) hypertension (5) COPD (chronic obstructive pulmonary disease) Current Visit: No Status: Chronic Assessment and plan: Stable at this time No SOB Home meds for now Qualifiers: COPD type: chronic bronchitis Chronic bronchitis type: unspecified Qualified Code(s): J42 - Unspecified chronic bronchitis (6) Paroxysmal atrial fibrillation Current Visit: No Status: Acute Assessment and plan: Appears to be stable at this time Continue home regimen with Pradaxa and Flecinide Telemetry (7) Obesity (BMI 30-39.9) Current Visit: No Status: Chronic (8) DVT prophylaxis Current Visit: No Status: Acute Assessment and plan: Taking Pradaxa - Subjective Interval history: Patient is admitted for recurrent c diff infection on oral vancomycin No concerns overnight per nursing Total count of 3 BM yesterday Pain is still present diffusely and radiating to her back Denies any fevers, chest pain, SOB, palpiations, n/v or LE edema - Constitutional Vitals: Temp Pulse Resp BP Pulse Ox 97.9 F 70 15 122/81 95 07/15/17 07:15 07/15/17 07:15 07/15/17 07:15 07/15/17 07:15 07/15/17 07:15 General appearance: Present: cooperative, A&O X 3, obese, answers questions appropriately - Head Head exam: Present: atraumatic, normocephalic - Eye Eye exam: Present: EOMI, normal appearance, conjuntiva pink, sclera anicteric - ENT ENT exam: Present: mucous membranes moist - Neck Neck exam general surgery: Present: supple, trachea midline - Respiratory Respiratory exam: Present: CTAB. Absent: respiratory distress - Cardiovascular Cardiovascular exam: Present: RRR, +S1, +S2 - GI/Abdominal GI/Abdominal exam: Present: normal bowel sounds, soft, tenderness (diffusely). Absent: distended, firm, guarding - Extremities Exam Extremities exam: Present: warm. Absent: pedal edema - Neurological Exam Neurological exam: Present: alert, oriented X3, no focal deficits - Psychiatric Psychiatric exam: Present: depressed - Skin Skin exam: Present: dry, warm Internal Medicine: Result - Labs CBC & Chem 7: 07/13/17 06:59 07/15/17 05:44 Labs: BMP 07/15/17 05:44 Sodium 135 L Potassium 4.0 Chloride 102 Carbon Dioxide 25 BUN 10 Creatinine 0.61 Glucose 301 H Calcium 9.2 Liver Function 07/15/17 Range/Units 05:44 Total Bilirubin 0.4 (0.3-1.0) mg/dL AST 20 (13-39) Units/L ALT 23 (7-52) Units/L Alkaline Phosphatase 85 (34-104) Units/L Albumin 3.8 (3.5-5.7) g/dL Consult Discharge Plan - Plan Referrals: Joanne Paez MD [Primary Care Provider] - 07/19/17 10:45 am Prescriptions: Blood-Glucose Meter, Drum-Type [Accu-Chek] 1 each TID #1 kit <Saurav Ornelas - Last Filed: 07/15/17 18:24> Date of Encounter: 07/15/17 - Assessment and plan (1) Recurrent Clostridium difficile diarrhea Current Visit: Yes Status: Acute (2) Abdominal pain Current Visit: Yes Status: Acute Qualifiers: Abdominal location: generalized Qualified Code(s): R10.84 - Generalized abdominal pain (3) Diabetes mellitus Current Visit: No Status: Chronic Qualifiers: Diabetes mellitus type: type 2 Diabetes mellitus complication status: with hyperglycemia Diabetes mellitus halfway insulin use: with ferry terminal agent use Qualified Code(s): E11.65 - Type 2 diabetes mellitus with hyperglycemia; Z79.4 - residential (current) use of insulin; Z79.4 - extermination supervisor (current) use of insulin ; Z79.4 - residential (current) use of insulin; Z79.4 - extermination supervisor (current) use of insulin (4) HTN (hypertension) Current Visit: No Status: Chronic Qualifiers: Hypertension type: essential hypertension Qualified Code(s): I10 - Essential (primary) hypertension (5) COPD (chronic obstructive pulmonary disease) Current Visit: No Status: Chronic Qualifiers: COPD type: chronic bronchitis Chronic bronchitis type: unspecified Qualified Code(s): J42 - Unspecified chronic bronchitis (6) Paroxysmal atrial fibrillation Current Visit: No Status: Chronic - Constitutional Vitals: Temp Pulse Resp BP Pulse Ox 98.2 F 73 16 112/68 95 07/15/17 16:17 07/15/17 16:17 07/15/17 16:17 07/15/17 16:17 07/15/17 16:17 Internal Medicine: Result - Labs CBC & Chem 7: 07/13/17 06:59 07/15/17 05:44 Labs: BMP 07/15/17 05:44 Sodium 135 L Potassium 4.0 Chloride 102 Carbon Dioxide 25 BUN 10 Creatinine 0.61 Glucose 301 H Calcium 9.2 Liver Function 07/15/17 Range/Units 05:44 Total Bilirubin 0.4 (0.3-1.0) mg/dL AST 20 (13-39) Units/L ALT 23 (7-52) Units/L Alkaline Phosphatase 85 (34-104) Units/L Albumin 3.8 (3.5-5.7) g/dL - Attending Attestation I examined this patient and my medical decision-making was reviewed with the Resident Physician on 07/15/17. I agree with the documented findings, disposition and treatment plan as described except to the extent set forth below. Ms Jacome is currently admitted for recurrent C diff. She remains moderate risk due to potential for worsening clinical status. Ms Jacome continues to have some pain. No fever or chills. Less BM and more formed. Exam Alert. Comfortable Mucus membranes dry Heart reg No wheeze Abd soft I/P 1. C diff Further diagnoses and plan as above. Anticipate d/c tomorrow when able to get oral Vanc liquid.
[2017-07-15] MEDS: clonazePAM 0.5 MG TABLET PO SCH (20:56)
[2017-07-16] MEDS: *HR* Morphine 2 MG/ML SYRINGE IVP PRN ×2 (00:58→04:59)
[2017-07-16] MEDS: *HR* Metformin 500 MG TABLET PO SCH (08:19)
[2017-07-16] MEDS: Magnesium Oxide 400 MG TABLET PO SCH (08:19)
[2017-07-16] MEDS: Aspirin Enteric Coated 81 MG Tablet PO SCH (08:19)
[2017-07-16] MEDS: *HR* Dabigatran 150 MG CAPSULE PO SCH (08:19)
[2017-07-16] MEDS: Insulin LISPRO 300 UNITS/3 ML VIAL SQ SCH ×2 (08:20→12:33)
[2017-07-16] MEDS: Vancomycin Oral Soln 250 MG/5 ML UDC PO SCH (08:20)
--- NOTE | 2017-07-16 08:50 | Discharge Summary ---
<Gokul Purdy - Last Filed: 07/16/17 12:46> Date of Encounter: 07/16/17 Time of Encounter: 08:50 - Discharge Diagnosis (1) Recurrent Clostridium difficile diarrhea Priority: Primary Status: Acute (2) Abdominal pain Priority: Primary Status: Acute Qualifiers: Abdominal location: generalized Qualified Code(s): R10.84 - Generalized abdominal pain (3) Diabetes mellitus Priority: Secondary Status: Chronic Qualifiers: Diabetes mellitus type: type 2 Diabetes mellitus complication status: with hyperglycemia Diabetes mellitus mcc insulin use: with mcc use Qualified Code(s): E11.65 - Type 2 diabetes mellitus with hyperglycemia; Z79.4 - [facility] (current) use of insulin; Z79.4 - [facility] (current) use of insulin ; Z79.4 - [facility] (current) use of insulin; Z79.4 - technician terminal and repeater (current) use of insulin (4) HTN (hypertension) Priority: Secondary Status: Chronic Qualifiers: Hypertension type: essential hypertension Qualified Code(s): I10 - Essential (primary) hypertension (5) COPD (chronic obstructive pulmonary disease) Priority: Secondary Status: Chronic Qualifiers: COPD type: chronic bronchitis Chronic bronchitis type: unspecified Qualified Code(s): J42 - Unspecified chronic bronchitis (6) Paroxysmal atrial fibrillation Priority: Secondary Status: Acute (7) Obesity (BMI 30-39.9) Priority: Secondary Status: Chronic (8) DVT prophylaxis Priority: Secondary Status: Acute - Discharge Medications Prescriptions: Blood-Glucose Meter, Drum-Type [Accu-Chek] 1 each MC TID #1 kit HYDROcodone/Acet 5/325 mg [[place] 5-325 mg] 1 tab PO Q6H PRN #20 tab PRN Reason: pain Vancomycin Oral Soln [Vancocin] 250 mg PO QID 10 Days #1 [facility] [place] Home Medications: Aspirin [Adult Low Dose Aspirin EC] 81 mg PO DAILY 10/26/15 [History] Etonogestrel [Nexplanon] 68 mg SQ AD 10/26/15 [History] metFORMIN [Glucophage] 1,000 mg PO BIDWM 10/26/15 [History] clonazePAM [Klonopin] 0.5 mg PO HS 03/04/17 [History] Dabigatran Etexilate Mesylate [Pradaxa] 150 mg PO BID 05/12/17 [History] Flecainide 100 mg PO BID 05/12/17 [History] Omeprazole [PriLOSEC] 40 mg PO DAILY 05/12/17 [History] Atorvastatin Calcium [Lipitor] 20 mg PO HS 06/03/17 [History] Sertraline [Zoloft] 300 mg PO DAILY 06/03/17 [History] traZODone [TraZODone] 50 mg PO HS PRN 06/03/17 [History] Lisinopril [Zestril] 5 mg PO DAILY tablet 06/20/17 [Rx] Metoprolol [Lopressor] 12.5 mg PO BID tablet 06/28/17 [Rx] Albuterol Sulfate [Ventolin Hfa] 2 puff IH Q4H PRN 07/09/17 [History] Blood-Glucose Meter, Drum-Type [Accu-Chek] 1 each MC TID #1 kit 07/15/17 [Rx] HYDROcodone/Acet 5/325 mg [[place] 5-325 mg] 1 tab PO Q6H PRN #20 tab 07/16/17 [Rx ] Vancomycin Oral Soln [Vancocin] 250 mg PO QID udc 07/16/17 [Rx] Vancomycin Oral Soln [Vancocin] 250 mg PO QID 10 Days #1 c 07/16/17 [Rx] Allergies/Adverse Reactions: 3 Allergy/AdvReac Type Severity Reaction Status Date / Time No Known Allergies Allergy Verified 06/30/17 15:31 Date of admission: 07/09/17 18:51 Primary care physician: Joanne Paez Consults: 07/09/17 20:43 Consult to Nutrition [CONS] Stat Comment: Consulting Provider: NUTRITION Reason for Dietary Consult: MST Score 07/09/17 22:37 Consult to Conservation Enforcement Officer [CONS] Stat Reason for SW Consult: financial concerns unable to afford po vanco as outpt 07/10/17 13:06 Consult to Physical Therapy [CONS] Routine Comment: Evaluate, develop and implement POC Reason for Consult: Requested by social work, possible home health need. 07/10/17 13:08 Consult to Occupational Therapy [CONS] Routine Comment: Evaluate, develop and implement POC Reason for Consult: requested by social work, possible home health need Discharging clinician: Saurav Ornelas Anticipated date of discharge: 01/02/18 - Patient Status Disposition: Home, Self-Care Condition: Good Functional capacity at discharge: independent ambulation Overall status at discharge: patient is progressing back to baseline - Discharge Instructions Instructions: Hydrocodone/Acetaminophen (By mouth), Vancomycin (By mouth), Diabetes Mellitus Type 2 in Adults (GEN), Clostridium Difficile Infection (DC) Follow Up With: Joanne Paez MD [Primary Care Provider] - 07/19/17 10:45 am Additional Instructions: Continue taking your Oral vancomycin solution 4 times per day for 10 days New Accu-Check Glucometer sent to your pharmacy Please read through the discharge packets for more information Call your PCP or return to the office/ED if you start experiencing feves, chills , nausea, vomiting or worsening diarrhea. Please followup with your PCP within 1 week - Diet and Activity Activity: increase activity as tolerated Diet: diabetic diet Interval History: Patient is ambulatory in room on room air. No SOB or instability. Requesting pain medication on discharge Abdominal pain still present but improving Formed stools only yesterday Hospital course: Ms. Jacome is a 51 year old female with a past medical history of a fib, hypertension, COPD, diabetes, TIA, and HI who presents to the emergency department complaining of abdominal pain and worsening of her C. difficile infection. The patient states that she was recently discharged from the hospital on June 30. However, her insurance did not cover oral tabletvancomycin so she has been only on Flagyl for treatment since the discharge. She has been on oral vancomycin while she was admitted prior to her visit today. Since her discharge, she complains of worsening abdominal pain, nausea, and continuing diarrhea. She denies any vomiting or any blood in the stores. She admits she still has an appetite but is unable to hold any food down. She admits she takes Flecinide and Pradaxa for her Afib. She admits some chest soreness at this time. She denied any fever, headache, vision changes, shortness of breath, difficulty breathing, constipation, vomiting, blood in her urine, dysuria, numbness and tingling, and any weaknesses. Patient was subsequently admitted to [facility] for recurretn C. Diff infection and started on oral vancomycin. Dosing was increased from 125mg four times per day to 250 with improvement. She noted to have only formed stools 07/15/17 and 07/16/17. Abdominal pain still present but tolerable. Patient is eating well without any issues. Ambulating well on room air without SOB. No leukocytosis throughout her stay with VSS. Sent home with 10 more days of oral solution vancomycin 250mg four times per day. She was discharged in stable condition on 07/16/17 with adequate followup. All questions and concerns were answered. - Time Spent with Patient Total time spent providing and/or coordinating discharge services: - Constitutional Vitals: Temp Pulse Resp BP Pulse Ox 97.7 F 64 18 97/61 96 07/16/17 07:57 07/16/17 07:57 07/16/17 07:57 07/16/17 07:57 07/16/17 08:29 General appearance: Present: cooperative, A&O X 3, obese, answers questions appropriately - Head Head exam: Present: atraumatic, normocephalic - Eye Eye exam: Present: EOMI, normal appearance, conjuntiva pink, sclera anicteric - ENT ENT exam: Present: mucous membranes moist - Neck Neck exam general surgery: Present: supple, trachea midline - Respiratory Respiratory exam: Present: CTAB. Absent: respiratory distress - Cardiovascular Cardiovascular exam: Present: RRR, +S1, +S2 - GI/Abdominal GI/Abdominal exam: Present: normal bowel sounds, soft, tenderness (mild, diffuse ) - Extremities Exam Extremities exam: Present: warm. Absent: pedal edema, tenderness - Neurological Exam Neurological exam: Present: alert, oriented X3, no focal deficits - Psychiatric Psychiatric exam: Present: depressed - Skin Skin exam: Present: dry, warm <Saurav Ornelas - Last Filed: 07/16/17 19:09> Date of Encounter: 07/16/17 - Discharge Diagnosis (1) Recurrent Clostridium difficile diarrhea Status: Acute (2) Abdominal pain Priority: Secondary Status: Chronic Qualifiers: Abdominal location: generalized Qualified Code(s): R10.84 - Generalized abdominal pain (3) Diabetes mellitus Status: Chronic Qualifiers: Diabetes mellitus type: type 2 Diabetes mellitus complication status: with hyperglycemia Diabetes mellitus termite control technician insulin use: with termite control technician use Qualified Code(s): E11.65 - Type 2 diabetes mellitus with hyperglycemia; Z79.4 - [facility] (current) use of insulin; Z79.4 - [facility] (current) use of insulin ; Z79.4 - technician terminal and repeater (current) use of insulin; Z79.4 - technician terminal and repeater (current) use of insulin (4) HTN (hypertension) Status: Chronic Qualifiers: Hypertension type: essential hypertension Qualified Code(s): I10 - Essential (primary) hypertension (5) COPD (chronic obstructive pulmonary disease) Status: Chronic Qualifiers: COPD type: chronic bronchitis Chronic bronchitis type: unspecified Qualified Code(s): J42 - Unspecified chronic bronchitis (6) Paroxysmal atrial fibrillation Status: Chronic Date of admission: 07/09/17 18:51 Primary care physician: Joanne Paez Consults: 07/09/17 20:43 Consult to Nutrition [CONS] Stat Comment: Consulting Provider: NUTRITION Reason for Dietary Consult: MST Score 07/09/17 22:37 Consult to Conservation Enforcement Officer [CONS] Stat Reason for SW Consult: financial concerns unable to afford po vanco as outpt 07/10/17 13:06 Consult to Physical Therapy [CONS] Routine Comment: Evaluate, develop and implement POC Reason for Consult: Requested by social work, possible home health need. 07/10/17 13:08 Consult to Occupational Therapy [CONS] Routine Comment: Evaluate, develop and implement POC Reason for Consult: requested by social work, possible home health need Hospital course: Ms. Jacome is a 51 year old female - Time Spent with Patient Total time spent providing and/or coordinating discharge services: 37min - Constitutional Vitals: Temp Pulse Resp BP Pulse Ox 97.7 F 64 18 119/82 96 07/16/17 07:57 07/16/17 07:57 07/16/17 07:57 07/16/17 09:39 07/16/17 08:29 - Attending Attestation I examined this patient and my medical decision-making was reviewed with the Resident Physician on 07/16/17. I agree with the documented findings, disposition and treatment plan as described except to the extent set forth below. Ms Jacome has been admitted for recurrent C diff. She has been treated with liquid Vanc and will go home with this med. She is now afebrile with stable vitals and is ready for discharge home. Exam Alert. Comfortable Mucus membranes dry Heart not tachy Lungs no wheeze Plan D/C home Follow up with PCP.
[2017-07-16 09:40] VITALS: BP 119/82
[2017-07-16] MEDS ORDERED: *HR* HYDROcodone/Acet 5/325 mg TABLET PO ONE (09:50)
== END 2017-07-16 13:00 | disposition home or self-care (01) | DRG 248 ==
LOC: EMEROO 14:38 → 3ANU 18:51 → SUATTDRO 18:51 → 3ANU 19:14
PROVIDERS: ADMIT Nurse Practitioner; ATTEND Internal Medicine

== ENCOUNTER 2017-07-30 11:34 | Observation (INO) ==
[2017-07-30 12:24] LABS: Basophils % 0.5 %; Eosinophils # 0.2 K/mcL (0.0-0.6); Eosinophils % 2.5 %; Hematocrit 37.3 % (35.3-44.9); Hemoglobin 11.7 g/dL (11.5-15.4); Immature Granulocytes % 0.4 % (0-4); Lymphocytes # 1.4 K/mcL (0.6-4.6); Lymphocytes % 17.5 %; Mean Corpuscular HGB Conc 31.4 g/dL (31.6-35.5); Mean Corpuscular Hemoglobin 24.6 pg (28.0-33.3); Mean Corpuscular Volume 78.5 fL (83.0-100.0); Mean Platelet Volume 9.8 fL (9.4-12.4); Monocytes # 0.3 K/mcL (0.0-1.3); Monocytes % 3.3 %; Neutrophils # 6.1 K/mcL (1.6-8.9); Platelet Count 224 K/mcL (140-400); Red Blood Count 4.75 M/mcL (3.82-4.97); Red Cell Distribution Width 15.4 % (11.5-14.5); Segmented Neutrophils % 75.8 %
[2017-07-30 12:48] LABS: Alanine Aminotransferase 17 Units/L (7-52); Albumin 3.9 g/dL (3.5-5.7); Albumin/Globulin Ratio 1.4 (1.1-2.2); Alkaline Phosphatase 103 Units/L (34-104); Aspartate Amino Transferase 16 Units/L (13-39); BUN/Creatinine Ratio 25 (6-26); Bilirubin,Indirect 0.5 mg/dL (0.0-1.2); Bilirubin,Total 0.5 mg/dL (0.3-1.0); Blood Urea Nitrogen 14 mg/dL (6-20); Calcium 9.4 mg/dL (8.6-10.3); Carbon Dioxide 20 mEq/L (23-29); Chloride 106 mEq/L (98-107); Globulin 2.8 g/dL (2.4-3.5); Glucose 330 mg/dL (70-105); Lipase 22 Units/L (11-82); Osmolality,Calculated 295 (280-300); Potassium 3.8 mEq/L (3.5-5.1); Sodium 136 mEq/L (136-145); Total Protein 6.7 g/dL (6.4-8.9); eGFR For African Americans > 60 (> 60); eGFR For Non-African Americans > 60 (> 60)
--- NOTE | 2017-07-30 12:50 | Emergency Department Note ---
Disposition Clinical Impression: C. difficile colitis Abdominal pain Qualifiers: Abdominal location: generalized Qualified Code(s): R10.84 - Generalized abdominal pain Disposition: Admitted As Inpatient Condition: Good Time of Disposition: 14:45 Abdominal Pain HPI - General Chief Complaint: ED Abdominal Pain Stated Complaint: abd pain, weakness Time Seen by Provider: 07/30/17 11:38 Source: patient Mode of arrival: ambulatory Limitations: no limitations Nursing Notes Reviewed: Yes Vital Signs Reviewed: Yes - History of Present Illness HPI Narrative: 51-year-old female presents to emergency Department with concerns of abdominal pain and diarrhea. Patient has been diagnosed with C. difficile and has been treated multiple times over the past few months for C. difficile. Patient was recently discharged about 14 days ago with a prescription and home medications of oral vancomycin. Patient was able to tolerate by mouth intake and had semi- formed stools while taking the vancomycin however she stopped the medication about 4 days ago and has since had return of her diarrhea. Patient follows Dr. Stevens from GI. Patient states pain is in the generalized abdomen, does not radiate, feels like a cramping and aching, and feels exactly similar to her previous C. difficile exacerbations. Pain Scale: 9 - Related Data Home Medications Medication Instructions Recorded Confirmed Aspirin [Adult Low Dose Aspirin EC] 81 mg PO DAILY 10/26/15 07/30/17 Etonogestrel [Nexplanon] 68 mg SQ AD 10/26/15 07/30/17 metFORMIN [Glucophage] 1,000 mg PO BIDWM 10/26/15 07/30/17 clonazePAM [Klonopin] 0.5 mg PO HS 03/04/17 07/30/17 Dabigatran Etexilate Mesylate 150 mg PO BID 05/12/17 07/30/17 [Pradaxa] Flecainide 100 mg PO BID 05/12/17 07/30/17 Omeprazole [PriLOSEC] 40 mg PO DAILY 05/12/17 07/30/17 Atorvastatin Calcium [Lipitor] 20 mg PO HS 06/03/17 07/30/17 Sertraline [Zoloft] 300 mg PO DAILY 06/03/17 07/30/17 traZODone [TraZODone] 50 - 100 mg PO HS PRN 06/03/17 07/30/17 Albuterol Sulfate [Ventolin Hfa] 2 puff IH Q4H PRN 07/09/17 07/30/17 Insulin ASPART [Novolog Flexpen] 0 unit SQ TIDWM 07/30/17 07/30/17 Insulin Glargine,Hum.rec.anlog 50 unit SQ BID 07/30/17 07/30/17 [Lantus Solostar] Metoprolol [Lopressor] 50 mg PO BID 07/30/17 07/30/17 Previous Rx's Medication Instructions Recorded Lisinopril [Zestril] 5 mg PO DAILY tablet 06/20/17 Allergies Allergy/AdvReac Type Severity Reaction Status Date / Time No Known Allergies Allergy Verified 06/30/17 15:31 All systems ED: reviewed and negative except as stated. Review of Systems: As Per HPI Constitutional: Reports: weakness. Denies: fever, chills Cardiovascular: Denies: chest pain, palpitations Respiratory: Denies: cough, dyspnea, wheezes Gastrointestinal: Reports: abdominal pain, diarrhea. Denies: nausea, vomiting Genitourinary: Denies: urgency, dysuria Abdominal Pain PMH - Past Medical History Medical history: Reports: atrial fibrillation, COPD, CVA, diabetes, hyperlipidemia, hypertension, myocardial infarction, TIA Female Surgical History: Reports: , cholecystectomy, other STRIP FEEDER history: Reports: no STRIP FEEDER history Psychiatric history: Reports: anxiety, depression - Social History Smoking status: Never smoker Alcohol use: Reports: none Drug use: Reports: none Physical Exam General: Alert and in no acute distress Skin: Warm, dry, intact Head: Normocephalic and atraumatic Neck: Supple, trachea midline and no tenderness Cardiovascular: RRR, no murmur, normal perfusion Respiratory: CTAB, no wheezing, cough, or respiratory distress Musculoskeletal: Normal strength, no tenderness, swelling or deformity GI: Soft, tenderness to palpation of the generalized abdomen without evidence of rigidity, guarding, or rebound. Neuro: A&O to person, place, time and situation. No focal deficits noted on exam Psychiatric: cooperative and appropriate mood and affect. - General Limitations: no limitations General appearance: alert, in no apparent distress Course Vital Signs Temperature 98.4 F 07/30/17 11:36 Pulse Rate 77 07/30/17 11:36 Respiratory Rate 16 07/30/17 11:36 Blood Pressure 135/82 07/30/17 11:36 O2 Sat by Pulse Oximetry 99 07/30/17 11:36 Temperature 98.4 F 07/30/17 17:01 Pulse Rate 59 07/30/17 17:01 Respiratory Rate 16 07/30/17 17:01 Blood Pressure 89/54 07/30/17 17:01 O2 Sat by Pulse Oximetry 97 07/30/17 17:01 Oxygen Delivery Oxygen Delivery Room Air Abdominal Pain - MDM Narrative Medical decision making narrative: I spoke with who recommended patient have a vancomycin taper of 125 mg 4 times a day 2 weeks followed by 125 mg twice a day 1 week, followed by 125 mg every other day, Then every third day. Patient is unable to obtain his medications here and she will be admitted to the hospital for further care and evaluation to receive medications as well as to see social work. - Medical Records Medical records reviewed: Yes I reviewed the patient's medical records. - Lab Data Lab results reviewed: Yes I reviewed the patient's lab results. Result diagrams: 07/30/17 12:18 07/30/17 12:18 Lab Results 07/30/17 07/30/17 07/30/17 Range/Units 11:45 12:18 12:18 WBC 8.1 (4.3-11.1) K/mcL RBC 4.75 (3.82-4.97) M/mcL Hgb 11.7 (11.5-15.4) g/dL Hct 37.3 (35.3-44.9) % MCV 78.5 L (83.0-100.0) fL MCH 24.6 L (28.0-33.3) pg MCHC 31.4 L (31.6-35.5) g/dL RDW 15.4 H (11.5-14.5) % Plt Count 224 (140-400) K/mcL MPV 9.8 (9.4-12.4) fL Immature Gran % 0.4 (0-4) % Seg Neutrophils % 75.8 % Lymphocytes % 17.5 % Monocytes % 3.3 % Eosinophils % 2.5 % Basophils % 0.5 % Neutrophils # 6.1 (1.6-8.9) K/mcL Lymphocytes # 1.4 (0.6-4.6) K/mcL Monocytes # 0.3 (0.0-1.3) K/mcL Eosinophils # 0.2 (0.0-0.6) K/mcL Basophils # 0.0 (0.0-0.2) K/mcL Sodium 136 (136-145) mEq/L Potassium 3.8 (3.5-5.1) mEq/L Chloride 106 (98-107) mEq/L Carbon Dioxide 20 L (23-29) mEq/L BUN 14 (6-20) mg/dL Creatinine 0.57 L (0.60-1.20) mg/dL Est GFR ( Amer) > 60 (> 60) Est GFR (Non-Af Amer) > 60 (> 60) BUN/Creatinine Ratio 25 (6-26) Glucose 330 H (70-105) mg/dL POC Glucose 340 H (58-89) Calculated Osmolality 295 (280-300) Lactic Acid (0.5-2.2) mmol/L Calcium 9.4 (8.6-10.3) mg/dL Total Bilirubin 0.5 (0.3-1.0) mg/dL Direct Bilirubin 0.0 (0.0-0.2) mg/dL Indirect Bilirubin 0.5 (0.0-1.2) mg/dL AST 16 (13-39) Units/L ALT 17 (7-52) Units/L Alkaline Phosphatase 103 (34-104) Units/L Troponin I (< 0.04) ng/mL Serum Total Protein 6.7 (6.4-8.9) g/dL Albumin 3.9 (3.5-5.7) g/dL Globulin 2.8 (2.4-3.5) g/dL Albumin/Globulin Ratio 1.4 (1.1-2.2) Lipase 22 (11-82) Units/L Beta-Hydroxybutyric Acd 0.09 (0.02-0.27) mmol/L Urine Color (Yellow) Urine Clarity (Clear) Urine pH (5.0-8.0) pH Units Ur Specific Armstrong (1.010-1.025) Urine Protein (Neg-Trace) mg/dL Urine Glucose (UA) (Normal) mg/dL Urine Ketones (Negative) mg/dL Urine Blood (Negative) Urine Nitrite (Negative) Urine Bilirubin (Negative) Urine Urobilinogen (Normal) mg/dL Ur Leukocyte Esterase (Negative) Urine Microscopic RBC (0-3) per hpf Urine Microscopic WBC (0-3) per hpf Ur Squamous Epith Cells (None-Few) per lpf Urine Bacteria (None-Few) per hpf Hyaline Casts (None-Few) per lpf Ur Culture Indicated? (NO) 07/30/17 07/30/17 07/30/17 Range/Units 12:18 12:18 14:18 WBC (4.3-11.1) K/mcL RBC (3.82-4.97) M/mcL Hgb (11.5-15.4) g/dL Hct (35.3-44.9) % MCV (83.0-100.0) fL MCH (28.0-33.3) pg MCHC (31.6-35.5) g/dL RDW (11.5-14.5) % Plt Count (140-400) K/mcL MPV (9.4-12.4) fL Immature Gran % (0-4) % Seg Neutrophils % % Lymphocytes % % Monocytes % % Eosinophils % % Basophils % % Neutrophils # (1.6-8.9) K/mcL Lymphocytes # (0.6-4.6) K/mcL Monocytes # (0.0-1.3) K/mcL Eosinophils # (0.0-0.6) K/mcL Basophils # (0.0-0.2) K/mcL Sodium (136-145) mEq/L Potassium (3.5-5.1) mEq/L Chloride (98-107) mEq/L Carbon Dioxide (23-29) mEq/L BUN (6-20) mg/dL Creatinine (0.60-1.20) mg/dL Est GFR ( Amer) (> 60) Est GFR (Non-Af Amer) (> 60) BUN/Creatinine Ratio (6-26) Glucose (70-105) mg/dL POC Glucose (58-89) Calculated Osmolality (280-300) Lactic Acid 2.0 (0.5-2.2) mmol/L Calcium (8.6-10.3) mg/dL Total Bilirubin (0.3-1.0) mg/dL Direct Bilirubin (0.0-0.2) mg/dL Indirect Bilirubin (0.0-1.2) mg/dL AST (13-39) Units/L ALT (7-52) Units/L Alkaline Phosphatase (34-104) Units/L Troponin I < 0.03 (< 0.04) ng/mL Serum Total Protein (6.4-8.9) g/dL Albumin (3.5-5.7) g/dL Globulin (2.4-3.5) g/dL Albumin/Globulin Ratio (1.1-2.2) Lipase (11-82) Units/L Beta-Hydroxybutyric Acd (0.02-0.27) mmol/L Urine Color Yellow (Yellow) Urine Clarity Clear (Clear) Urine pH 6.0 (5.0-8.0) pH Units Ur Specific Armstrong > 1.030 H (1.010-1.025) Urine Protein Negative (Neg-Trace) mg/dL Urine Glucose (UA) >=1000 H (Normal) mg/dL Urine Ketones Negative (Negative) mg/dL Urine Blood Negative (Negative) Urine Nitrite Negative (Negative) Urine Bilirubin Negative (Negative) Urine Urobilinogen Normal (Normal) mg/dL Ur Leukocyte Esterase Trace H (Negative) Urine Microscopic RBC 0-3 (0-3) per hpf Urine Microscopic WBC 5-15 H (0-3) per hpf Ur Squamous Epith Cells Many H (None-Few) per lpf Urine Bacteria Few (None-Few) per hpf Hyaline Casts Few (None-Few) per lpf Ur Culture Indicated? NO. (NO) - EKG Data EKG attestation: Yes I reviewed and interpreted this EKG. EKG results narrative: ECG - interpreted by ED physician. Rate 71, normal sinus rhythm, no STEMI, LA, QT intervals, and QRS within normal limits
[2017-07-30 14:30] LABS: Bilirubin,Urine Negative (Negative); Blood,Urine Negative (Negative); Clarity,Urine Clear (Clear); Color,Urine Yellow (Yellow); Glucose,Urine (UA) >=1000 mg/dL (Normal); Ketones,Urine Negative (Negative); Leukocyte Esterase,Urine Trace (Negative); Nitrite,Urine Negative (Negative); Protein,Urine Negative (Neg-Trace); Specific Gravity,Urine > 1.030 (1.010-1.025); Urobilinogen,Urine Normal (Normal)
[2017-07-30] MEDS ORDERED: Ondansetron 4 MG/2 ML VIAL IVP ONE (14:30)
[2017-07-30] MEDS ORDERED: *HR* Morphine 2 MG/ML SYRINGE IVP ONE (14:30)
[2017-07-30 14:32] LABS: Bacteria,Urine Few per hpf (None-Few); Hyaline Casts,Urine Few per lpf (None-Few); Squamous Epithelial Cell,Urine Many per lpf (None-Few)
[2017-07-30 14:48] LABS: RBC,Urine 0-3 per hpf (0-3)
[2017-07-30 16:46] LABS: Beta-Hydroxybutyric Acid 0.09 mmol/L (0.02-0.27)
[2017-07-30] MEDS ORDERED: Vancomycin Oral Soln 250 MG/5 ML UDC PO SCH (17:00)
[2017-07-30] MEDS ORDERED: Naloxone 0.4 MG/ML INJ IVP PRN (20:27)
[2017-07-30] MEDS ORDERED: D5% in Water 1,000 ML IVC PRN (20:35)
[2017-07-30] MEDS ORDERED: *HR* Dextrose 50 % in Water (Syg) 50 ML SYRINGE IVP PRN (20:35)
[2017-07-30] MEDS ORDERED: Dextrose Gel 15 GM/37.5 ML TUBE PO PRN ×2 (20:35)
--- NOTE | 2017-07-30 20:49 | Internal Med History&Physical ---
Addendum entered and electronically signed by Rachel Ferrer 07/30/17 21:12: troponin in ED <0.03, follow in am as well as recheck EKG Original Note: <Rachel Ferrer Gera - Last Filed: 07/30/17 21:00> Date of Encounter: 07/30/17 Time of Encounter: 20:42 Assessment and Plan (1) Diabetes mellitus, type II, insulin dependent Current visit: No Status: Chronic hold oral agents accu checks ac/hs with low dose coverage (2) Depression Current visit: No Status: Chronic continue home meds Qualifiers: Depression Type: unspecified Qualified Code(s): F32.9 - Major depressive disorder, single episode, unspecified (3) Anxiety Current visit: No Status: Chronic continue home medications (4) Chest pain Current visit: Yes Status: Acute serial troponins, ekg patient states she has some midsternal chest tightness/discomfort, non radiating Qualifiers: Chest pain type: other chest pain Qualified Code(s): R07.89 - Other chest pain; R07.8 - Other chest pain (5) Weakness Current visit: No Status: Chronic consider PT/OT evaluation (6) Paroxysmal atrial fibrillation Current visit: No Status: Chronic continue home meds, follows at [facility] (7) Chronic anticoagulation Current visit: No Status: Chronic continue pradaxa (8) Recurrent Clostridium difficile diarrhea Current visit: No Status: Chronic (9) Abdominal pain Current visit: Yes Status: Acute Qualifiers: Abdominal location: generalized Qualified Code(s): R10.84 - Generalized abdominal pain (10) Diarrhea Current visit: Yes Status: Acute Emergency room physician as per his note spoke with who recommended patient have a vancomycin taper of 125 mg 4 times a day 2 weeks followed by 125 mg twice a day 1 week, followed by 125 mg every other day, Then every third day. Patient is unable to obtain her medications here and she will be admitted to the hospital for further care and evaluation to receive medications as well as to see social work. 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 Jcaome is a 51 year old female presented to the emergency department for evaluation of abdominal pain and diarrhea. The patient has been diagnosed and treated for C. difficile in the past few months multiple times. She was discharged 14 days ago with a prescription for oral vancomycin. She stated she was able to tolerate food and had semi-formed stools while taking the vancomycin but when the medication was completed 4 days ago she had a return of her diarrhea. She stated she had 20 bowel movements at home today and 7 in the ER while she was waiting down there. She states the pain is generalized abdomen , does not radiate, feels like a cramping and aching, and feels exactly similar to her previous C. difficile exacerbations. She denies fever, chills, nausea, vomiting, dizziness, headache, or changes in her voiding. She states she has been trying to eat puddings and soft foods but starts cramping and has a bowel movement. She denies any weight loss. She states she feels generalized weak. She states she came to the hospital because she could not stand the abdominal pain any longer. The patient follows with [facility] . He was called by the ER She said she is supposed to go to [facility] for further treatment of her A. fib. Past Med Surg Social Fam HX - Past Medical History Medical history: atrial fibrillation, COPD, CVA, diabetes, hyperlipidemia, hypertension, myocardial infarction, TIA, other (cdiff) Psychiatric history: anxiety, depression - Past Surgical History Surgical History: , cholecystectomy - Social History Smoking Status: Never smoker Smokeless Tobacco Status: No Alcohol use: none Drug use: none Current living situation: Home - Independent Activity Level: Independent ambulation - Family History Mother Living Status: Hx Family Cardiac Disorders: Yes Hx Family Respiratory Disorders: Yes (copd) Hx Family Cancer: Yes (lung cancer) Hx Family Endocrine Disorder: Yes (DM type II) Father Adopted: No Family Member Ethnicity: Non- Living Status: Hx Family Cardiac Disorders: Yes Hx Family Respiratory Disorders: Yes Hx Family Cancer: Yes (LUNG) Hx Family GI Disorders: No Hx Family Endocrine Disorder: Yes (DM) Hx Family Neuromuscular Disorders: No Hx Family Neurologic Disorders: No Hx Family HEENT Disorders: No Hx Family Autoimmune Disorders: No - Additional Family History Additional family history: Reviewed and noncontributory to this event Internal Medicine - H&P: Meds Aspirin [Adult Low Dose Aspirin EC] 81 mg PO DAILY 10/26/15 [History] Etonogestrel [Nexplanon] 68 mg SQ AD 10/26/15 [History] metFORMIN [Glucophage] 1,000 mg PO BIDWM 10/26/15 [History] clonazePAM [Klonopin] 0.5 mg PO HS 03/04/17 [History] Dabigatran Etexilate Mesylate [Pradaxa] 150 mg PO BID 05/12/17 [History] Flecainide 100 mg PO BID 05/12/17 [History] Omeprazole [PriLOSEC] 40 mg PO DAILY 05/12/17 [History] Atorvastatin Calcium [Lipitor] 20 mg PO HS 06/03/17 [History] Sertraline [Zoloft] 300 mg PO DAILY 06/03/17 [History] traZODone [TraZODone] 50 - 100 mg PO HS PRN 06/03/17 [History] Lisinopril [Zestril] 5 mg PO DAILY tablet 06/20/17 [Rx] Albuterol Sulfate [Ventolin Hfa] 2 puff IH Q4H PRN 07/09/17 [History] Insulin ASPART [Novolog Flexpen] 0 unit SQ TIDWM 07/30/17 [History] Insulin Glargine,Hum.rec.anlog [Lantus Solostar] 50 unit SQ BID 07/30/17 [ History] Metoprolol [Lopressor] 50 mg PO BID 07/30/17 [History] 3 Allergy/AdvReac Type Severity Reaction Status Date / Time No Known Allergies Allergy Verified 06/30/17 15:31 All Systems PM: A 10-system review of systems was performed and is negative for pertinent findings except as documented above in the HPI. - Constitutional Constitutional: as per HPI, anorexia, weakness, no chills, no fever(s), no night sweats - EENT Eyes: no change in vision, no discharge, no pain, no photophobia Ears: no ear discharge, no ear pain, no tinnitus Nose, mouth and throat: no dysphagia, no nasal discharge, no neck pain, no sore throat - Cardiovascular Cardiovascular ROS IM: other (intermittent chest tightness but no SOB), no chest pain, no diaphoresis, no dyspnea, no lightheadedness, no palpitations, no syncope - Respiratory Respiratory: no cough, no dyspnea, no wheezing, no excessive phlegm production - Gastrointestinal Gastrointestinal: abdominal pain, cramping, diarrhea, no hematemesis, no hematochezia, no melena, no nausea, no vomiting - Genitourinary Genitourinary: no change in urinary stream, no dysuria, no flank pain, no hematuria - Musculoskeletal Musculoskeletal ROS IM: no numbness, no tingling - Integumentary Integumentary IM: no rash, no unusual bruising - Neurological Neurological ROS: no confusion, no convulsions, no focal weakness, no numbness, no tingling, no tremor(s) - Hematologic/Lymphatic Hematologic/Lymphatic: no easy bruising - Constitutional Vitals: Temp Pulse Resp BP Pulse Ox 98.1 F 52 18 127/65 100 07/30/17 19:59 07/30/17 19:59 07/30/17 19:59 07/30/17 19:59 07/30/17 19:59 General appearance: Present: A&O X 3, pleasant, no acute distress, obese, answers questions appropriately - Head Head exam: Present: atraumatic, normocephalic - Eye Eye exam: Present: conjuntiva pink, sclera anicteric - Neck Neck exam general surgery: Present: supple, trachea midline. Absent: lymphadenopathy - Respiratory Respiratory exam: Present: CTAB. Absent: accessory muscle use, rales, rhonchi, wheezes - Cardiovascular Cardiovascular exam: Present: irregular rhythm, +S1, +S2. Absent: diastolic murmur, gallop, rubs, systolic murmur - GI/Abdominal GI/Abdominal exam: Present: normal bowel sounds, soft, tenderness. Absent: distended, rebound, rigid, no peritoneal signs - Extremities Exam Extremities exam: Present: warm, radial pulses palpable and symmetrical. Absent : calf tenderness, cyanotic, pedal edema - Neurological Exam Neurological exam: Present: oriented X3, no focal deficits. Absent: pronater drift, facial droop, speech deficit - Skin Skin exam: Present: dry, intact, warm Internal Med - H&P Results - Labs CBC & Chem 7: 07/30/17 12:18 07/30/17 12:18 <Randal Marcano - Last Filed: 07/30/17 22:54> Date of Encounter: 07/30/17 Time of Encounter: 22:45 - Constitutional Constitutional: weakness - Cardiovascular Cardiovascular ROS IM: no chest pain, no dyspnea - Gastrointestinal Gastrointestinal: abdominal pain, diarrhea, no nausea, no vomiting - Musculoskeletal Musculoskeletal ROS IM: no arthralgias, no back pain - Integumentary Integumentary IM: no rash, no jaundice - Neurological Neurological ROS: no focal weakness - Psychiatric Psychiatric: anxiety, no depression - Endocrine Endocrine IM: no polydipsia, no polyuria - Allergic/Immunologic Allergic/Immunologic: no wheezing, no GI upset with certain foods - Constitutional Vitals: Temp Pulse Resp BP Pulse Ox 98.1 F 52 18 127/65 100 07/30/17 19:59 07/30/17 19:59 07/30/17 19:59 07/30/17 19:59 07/30/17 19:59 General appearance: Present: A&O X 3, no acute distress - Eye Eye exam: Present: EOMI, PERRL. Absent: scleral icterus - ENT ENT exam: Present: mucous membranes dry, normal exam - Neck Neck exam general surgery: Present: supple - Respiratory Respiratory exam: Present: CTAB. Absent: rales, rhonchi, wheezes - Cardiovascular Cardiovascular exam: Present: irregular rhythm, +S1, +S2 - GI/Abdominal GI/Abdominal exam: Present: normal bowel sounds, soft. Absent: guarding, hepatomegaly, rebound, splenomegaly, tenderness (on my exam, I can not reproduce any pain she claims) - Back Exam Back exam: Absent: CVA tenderness (L), CVA tenderness (R) - Neurological Exam Neurological exam: Present: no focal deficits - Psychiatric Psychiatric exam: Present: anxious. Absent: depressed - Skin Skin exam: Present: dry, warm. Absent: rash Internal Med - H&P Results - Labs CBC & Chem 7: 07/30/17 12:18 07/30/17 12:18 - Attending Attestation I discussed the patient MECHOOPDA, PMH, ROS, lab data, and exam findings with Rachel Ferrer CNP. I then saw and examined patient independently as well. Patient reports an excessive amount of diarrhea today, but she clinically does not appear in any significant distress. Furthermore, she does not look dehydrated and is hungry -- requesting to eat. Her complaints of abdominal pain do not correlate with her exam findings. Furthermore, her WBC is normal. We will treat her for C. Diff Colitis with Vancomycin and Flagyl, repeat her stool GI Panel, and consult GI as already done in ER. We will treat her abdominal pain with judicious pain medication as necessary. I do not feel she needs a CT of abdomen at this time. However, if her conditions worsens, we will proceed with imaging. Furthermore, on her last GI panel, she had negative C. Diff toxin but positive Campylobacter. Other than my comments above and noted exam findings, I agree with Rachel's assessment and plan.
[2017-07-30] MEDS: metroNIDAZOLE 500 MG TABLET PO SCH (21:58)
[2017-07-30] MEDS: *HR* Dabigatran 150 MG CAPSULE PO SCH (21:58)
[2017-07-30] MEDS: clonazePAM 0.5 MG TABLET PO SCH (21:59)
[2017-07-30] MEDS: Vancomycin Oral Soln 250 MG/5 ML UDC PO SCH (22:04)
[2017-07-31] MEDS: 0.9 % Sodium Chloride 1,000 ML IVC SCH ×2 (00:01→14:15)
[2017-07-31] MEDS: Insulin LISPRO 300 UNITS/3 ML VIAL SQ SCH ×5 (00:01→20:58)
[2017-07-31] MEDS: *HR* Morphine 2 MG/ML SYRINGE IVP PRN ×6 (00:02→23:27)
[2017-07-31 04:48] LABS: Basophils % 0.3 %; Eosinophils # 0.3 K/mcL (0.0-0.6); Eosinophils % 2.7 %; Hematocrit 41.9 % (35.3-44.9); Hemoglobin 13.2 g/dL (11.5-15.4); Immature Granulocytes % 0.3 % (0-4); Lymphocytes # 2.9 K/mcL (0.6-4.6); Lymphocytes % 22.8 %; Mean Corpuscular HGB Conc 31.5 g/dL (31.6-35.5); Mean Corpuscular Hemoglobin 25.1 pg (28.0-33.3); Mean Corpuscular Volume 79.7 fL (83.0-100.0); Mean Platelet Volume 10.1 fL (9.4-12.4); Monocytes # 0.4 K/mcL (0.0-1.3); Monocytes % 3.3 %; Neutrophils # 8.9 K/mcL (1.6-8.9); Platelet Count 271 K/mcL (140-400); Red Blood Count 5.26 M/mcL (3.82-4.97); Red Cell Distribution Width 15.8 % (11.5-14.5); Segmented Neutrophils % 70.6 %
[2017-07-31 05:00] LABS: BUN/Creatinine Ratio 21 (6-26); Blood Urea Nitrogen 15 mg/dL (6-20); Calcium 9.1 mg/dL (8.6-10.3); Carbon Dioxide 27 mEq/L (23-29); Chloride 103 mEq/L (98-107); Glucose 135 mg/dL (70-105); Magnesium 1.6 mg/dL (1.6-2.6); Osmolality,Calculated 289 (280-300); Phosphorous 4.9 mg/dL (2.7-4.5); Potassium 3.4 mEq/L (3.5-5.1); Sodium 138 mEq/L (136-145); eGFR For African Americans > 60 (> 60); eGFR For Non-African Americans > 60 (> 60)
--- NOTE | 2017-07-31 06:59 | Electrocardiograph Report ---
PeggySincerely Test Date: 2017-07-30 Pat Name: Christie Jacome Department: 104 Room: 3A52 Gender: F Cvor Nurse: : 1965 Requested By: Marco Antonio Higgins Order Number: [id number] Reading MD: Erwin Hung DO Measurements Intervals [place] Rate: 71 P: 45 LA: 170 QRS: 24 QRSD: 110 T: 41 QT: 401 QTc: 423 Interpretive Statements SINUS RHYTHM PROBABLE LATERAL MYOCARDIAL INFARCTION [35 ms Q WAVE IN I/aVL/V5/V6], PROBABLY OLD Electronically Signed On 07-31-2017 6:57:45 EST by Erwin Hung DO
[2017-07-31] MEDS: Aspirin Enteric Coated 81 MG Tablet PO SCH (07:53)
[2017-07-31] MEDS: metroNIDAZOLE 500 MG TABLET PO SCH ×3 (07:53→20:54)
[2017-07-31] MEDS: *HR* Dabigatran 150 MG CAPSULE PO SCH ×2 (07:54→20:55)
[2017-07-31] MEDS: Vancomycin Oral Soln 250 MG/5 ML UDC PO SCH ×4 (07:55→20:55)
[2017-07-31] MEDS ORDERED: Lidocaine -MPF 1% 5 ML AMPUL INFILT ONE (08:29)
[2017-07-31] MEDS: Ondansetron 4 MG/2 ML VIAL IVP PRN (14:17)
--- NOTE | 2017-07-31 16:34 | Internal Med Progress Note ---
Date of Encounter: 07/31/17 Time of Encounter: 16:30 - Assessment and plan (1) Abdominal pain Current Visit: No Status: Chronic Assessment and plan: Likely diarrhea related. Rule out C diff, stool studies pending. Continue PO vancomycin and IV Flagyl. IV fluids as needed. Qualifiers: Abdominal location: generalized Qualified Code(s): R10.84 - Generalized abdominal pain (2) Diarrhea Current Visit: Yes Status: Acute Assessment and plan: Patient reports an excessive amount of diarrhea today, but she clinically does not appear in any significant distress. Furthermore, she does not look dehydrated and is hungry, requesting to eat. Her complaints of abdominal pain do not correlate with her exam findings. WBC normal on admission at 8, now today is 12. We will treat her for C. Diff Colitis with Vancomycin and Flagyl, repeat her stool GI Panel, and consult GI as already done in ER. We will treat her abdominal pain with judicious pain medication as necessary. I do not feel she needs a CT of abdomen at this time. However, if her conditions worsens, we will proceed with imaging. Furthermore, on her last GI panel, she had negative C. Diff toxin but positive Campylobacter. As per HPI, over phone, GI recommended treating patient with a vancomycin PO taper. Continue PO vancomycin and IV Flagyl, monitor I/O. ADAT. IV fluids as needed. Follow-up stool studies. Qualifiers: Diarrhea type: presumed infectious Qualified Code(s): R19.7 - Diarrhea, unspecified (3) Chest pain Current Visit: No Status: Acute Assessment and plan: Troponin negative x2. Currently no complaints of chest pain. Recheck EKG. 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 Denies fevers/chills. Some nausea. - Constitutional Vitals: Temp Pulse Resp BP Pulse Ox 97.8 F 52 16 96/67 100 07/31/17 11:53 07/31/17 11:53 07/31/17 11:53 07/31/17 11:53 07/31/17 11:53 General appearance: Present: A&O X 3, no acute distress Exam: - Head Head exam: Present: atraumatic, normocephalic - Eye Eye exam: Present: conjuntiva pink, sclera anicteric - Neck Neck exam general surgery: Present: supple, trachea midline. Absent: lymphadenopathy - Respiratory Respiratory exam: Present: CTAB. Absent: accessory muscle use, rales, rhonchi, wheezes - Cardiovascular Cardiovascular exam: Present: irregular rhythm, +S1, +S2. Absent: diastolic murmur, gallop, rubs, systolic murmur - GI/Abdominal GI/Abdominal exam: Present: normal bowel sounds, soft, tenderness. Absent: distended, rebound, rigid, no peritoneal signs - Extremities Exam Extremities exam: Present: warm, radial pulses palpable and symmetrical. Absent : calf tenderness, cyanotic, pedal edema - Neurological Exam Neurological exam: Present: oriented X3, no focal deficits. Absent: pronater drift, facial droop, speech deficit - Skin Skin exam: Present: dry, intact, warm Internal Medicine: Result - Labs CBC & Chem 7: 07/31/17 04:03 07/31/17 04:03 Labs: Short CBC 07/31/17 Range/Units 04:03 WBC 12.6 H D (4.3-11.1) K/mcL Hgb 13.2 D (11.5-15.4) g/dL Hct 41.9 (35.3-44.9) % Plt Count 271 (140-400) K/mcL Neutrophils # 8.9 (1.6-8.9) K/mcL BMP 07/31/17 04:03 Sodium 138 Potassium 3.4 L Chloride 103 Carbon Dioxide 27 BUN 15 Creatinine 0.70 Glucose 135 H Calcium 9.1 Cardiac Enzymes 07/31/17 Range/Units 04:03 Troponin I < 0.03 (< 0.04) ng/mL Consult Discharge Plan - Plan Referrals: Joanne Paez MD [Primary Care Provider] -
[2017-07-31] MEDS ORDERED: Potassium Chloride Elixir 20 MEQ/15 ML UDC PO ONE (16:35)
[2017-07-31 19:17] LABS: Adenovirus F 40/41 PCR Not detected (Not detect); Astrovirus PCR Not detected (Not detect); C.difficile Toxin A/B by PCR Not detected (Not detect); Campylobacter by PCR Not detected (Not detect); Cryptosporidium by PCR Not detected (Not detect); Cyclospora cayetanensis PCR Not detected (Not detect); E. coli O157 by PCR Not detected (Not detect); Entamoeba histolytica PCR Not detected (Not detect); Enteroaggregative E.coli(EAEC) Not detected (Not detect); Enteropathogenic E.coli(EPEC) Not detected (Not detect); Enterotoxigenic E.coli (ETEC) Not detected (Not detect); Giardia lamblia PCR Not detected (Not detect); Norovirus GI/GII PCR Not detected (Not detect); Plesiomonas shigelloides PCR Not detected (Not detect); Rotavirus A PCR Not detected (Not detect); Salmonella PCR Not detected (Not detect); Sapovirus PCR Not detected (Not detect); Shig/EnteroinvasiveE coli EIEC Not detected (Not detect); Shigalike tox-prod E coli STEC Not detected (Not detect); Vibrio PCR Not detected (Not detect); Vibrio cholerae PCR Not detected (Not detect); Yersinia enterocolitica PCR Not detected (Not detect)
[2017-07-31] MEDS: clonazePAM 0.5 MG TABLET PO SCH (20:55)
[2017-07-31] MEDS: traZODone 50 MG TABLET PO PRN (20:55)
[2017-08-01] MEDS: *HR* Morphine 2 MG/ML SYRINGE IVP PRN ×3 (04:55→12:04)
[2017-08-01] MEDS: Insulin LISPRO 300 UNITS/3 ML VIAL SQ SCH ×4 (08:24→21:22)
[2017-08-01] MEDS: metroNIDAZOLE 500 MG TABLET PO SCH (08:26)
[2017-08-01] MEDS: *HR* Dabigatran 150 MG CAPSULE PO SCH ×2 (08:26→20:44)
[2017-08-01] MEDS: Aspirin Enteric Coated 81 MG Tablet PO SCH (08:26)
[2017-08-01] MEDS: Vancomycin Oral Soln 250 MG/5 ML UDC PO SCH ×4 (08:27→20:45)
[2017-08-01] MEDS: Ondansetron 4 MG/2 ML VIAL IVP PRN ×2 (08:30→16:51)
[2017-08-01 09:37] LABS: Basophils % 0.5 %; Eosinophils # 0.2 K/mcL (0.0-0.6); Eosinophils % 3.3 %; Hematocrit 34.1 % (35.3-44.9); Immature Granulocytes % 0.3 % (0-4); Lymphocytes # 1.4 K/mcL (0.6-4.6); Lymphocytes % 22.3 %; Mean Corpuscular HGB Conc 31.7 g/dL (31.6-35.5); Mean Corpuscular Hemoglobin 25.2 pg (28.0-33.3); Mean Corpuscular Volume 79.5 fL (83.0-100.0); Mean Platelet Volume 9.8 fL (9.4-12.4); Monocytes # 0.2 K/mcL (0.0-1.3); Monocytes % 3.6 %; Neutrophils # 4.3 K/mcL (1.6-8.9); Platelet Count 184 K/mcL (140-400); Red Blood Count 4.29 M/mcL (3.82-4.97); Red Cell Distribution Width 15.4 % (11.5-14.5)
[2017-08-01 09:42] LABS: Hemoglobin 10.8 g/dL (11.5-15.4)
[2017-08-01 09:48] LABS: BUN/Creatinine Ratio 15 (6-26); Blood Urea Nitrogen 8 mg/dL (6-20); Calcium 8.3 mg/dL (8.6-10.3); Carbon Dioxide 24 mEq/L (23-29); Chloride 108 mEq/L (98-107); Glucose 249 mg/dL (70-105); Osmolality,Calculated 291 (280-300); Potassium 3.9 mEq/L (3.5-5.1); Sodium 137 mEq/L (136-145); eGFR For African Americans > 60 (> 60); eGFR For Non-African Americans > 60 (> 60)
[2017-08-01 16:07] LABS: Hemoglobin 11.5 g/dL (11.5-15.4)
--- NOTE | 2017-08-01 16:20 | Internal Med Progress Note ---
Date of Encounter: 08/01/17 Time of Encounter: 16:18 - Assessment and plan (1) Abdominal pain Current Visit: No Status: Chronic Assessment and plan: Likely viral gastroenteritis. Stool studies came back negative. She seems well nourished and is not in any acute distress. DC Flagyl. Continue Vancomycin PO because patient is finishing a course from prior admission From abdominal pain standpoint, patient seems stable for discharge if her loose stools continue to improve. Anemia had acute drop will need monitoring. Qualifiers: Abdominal location: generalized Qualified Code(s): R10.84 - Generalized abdominal pain (2) Diarrhea Current Visit: Yes Status: Acute Assessment and plan: Patient reports an excessive amount of diarrhea today, but she clinically does not appear in any significant distress. Furthermore, she does not look dehydrated and is hungry, requesting to eat. Her complaints of abdominal pain do not correlate with her exam findings. WBC normal on admission at 8, now today is 12. We will treat her for C. Diff Colitis with Vancomycin and Flagyl, repeat her stool GI Panel, and consult GI as already done in ER. We will treat her abdominal pain with judicious pain medication as necessary. I do not feel she needs a CT of abdomen at this time. However, if her conditions worsens, we will proceed with imaging. Furthermore, on her last GI panel, she had negative C. Diff toxin but positive Campylobacter. As per HPI, over phone, GI recommended treating patient with a vancomycin PO taper. C diff negative Continue PO vancomycin taper to continue previous treatment of C diff colitis. Discontinue IV Flagyl If BM continue to improve, likely discharge tomorrow. Qualifiers: Diarrhea type: presumed infectious Qualified Code(s): R19.7 - Diarrhea, unspecified (3) Chest pain Current Visit: No Status: Acute Assessment and plan: Troponin negative x2. Currently no complaints of chest pain. Recheck EKG. 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 Will monitor. Currently she has no signs of active bleeding and she is hemodynamically stable. Qualifiers: Anemia type: unspecified type Qualified Code(s): D64.9 - Anemia, unspecified - Subjective Interval history: Patient states abdominal pain still persisting, also states she has nausea. She has been eating dinner yesterday, breakfast and lunch today without issues. She states she had 10 bowel movements in AM. Denies fevers/chills, N/V. - Constitutional Vitals: Temp Pulse Resp BP Pulse Ox 97.4 F L 59 15 100/50 100 08/01/17 15:00 08/01/17 15:00 08/01/17 15:00 08/01/17 15:00 08/01/17 15:00 General appearance: Present: A&O X 3, no acute distress - Head Head exam: Present: atraumatic, normocephalic - Eye Eye exam: Present: PERRL, conjuntiva pink, sclera anicteric Pupils: Present: PERRL - Neck Neck exam general surgery: Present: supple, trachea midline. Absent: lymphadenopathy - Respiratory Respiratory exam: Present: CTAB. Absent: accessory muscle use, rales, rhonchi, wheezes - Cardiovascular Cardiovascular exam: Present: RRR, +S1, +S2. Absent: diastolic murmur, gallop, rubs, systolic murmur - GI/Abdominal GI/Abdominal exam: Present: normal bowel sounds, soft, no peritoneal signs. Absent: distended, tenderness - Extremities Exam Extremities exam: Present: warm, radial pulses palpable and symmetrical. Absent : calf tenderness, cyanotic, pedal edema - Neurological Exam Neurological exam: Present: CN II-XII intact, oriented X3, no focal deficits. Absent: pronater drift, facial droop, speech deficit - Skin Skin exam: Present: dry, intact Internal Medicine: Result - Labs CBC & Chem 7: 08/01/17 15:52 08/01/17 09:26 Labs: Short CBC 07/31/17 08/01/17 08/01/17 Range/Units 04:03 09:26 15:52 WBC 12.6 H D 6.1 D (4.3-11.1) K/mcL Hgb 10.8 L D 11.5 (11.5-15.4) g/dL Hct 34.1 L 37.0 (35.3-44.9) % Plt Count 184 (140-400) K/mcL Neutrophils # 4.3 (1.6-8.9) K/mcL BMP 08/01/17 09:26 Sodium 137 Potassium 3.9 Chloride 108 H Carbon Dioxide 24 BUN 8 Creatinine 0.54 L Glucose 249 H Calcium 8.3 L Consult Discharge Plan - Plan Referrals: Joanne Paez MD [Primary Care Provider] - 08/09/17 10:45 am
[2017-08-01] MEDS: *HR* HYDROcodone/Acet 5/325 mg TABLET PO PRN (16:51)
[2017-08-01] MEDS: traZODone 50 MG TABLET PO PRN (20:44)
[2017-08-01] MEDS: clonazePAM 0.5 MG TABLET PO SCH (20:44)
[2017-08-01] MEDS ORDERED: *HR* Morphine 2 MG/ML SYRINGE IVP ONE (21:00)
[2017-08-02 06:13] LABS: Basophils % 0.6 %; Eosinophils # 0.3 K/mcL (0.0-0.6); Eosinophils % 4.4 %; Hemoglobin 10.7 g/dL (11.5-15.4); Immature Granulocytes % 0.1 % (0-4); Lymphocytes # 1.7 K/mcL (0.6-4.6); Lymphocytes % 24.1 %; Mean Corpuscular HGB Conc 30.6 g/dL (31.6-35.5); Mean Corpuscular Hemoglobin 24.1 pg (28.0-33.3); Mean Corpuscular Volume 78.8 fL (83.0-100.0); Mean Platelet Volume 10.4 fL (9.4-12.4); Monocytes # 0.3 K/mcL (0.0-1.3); Monocytes % 4.1 %; Neutrophils # 4.6 K/mcL (1.6-8.9); Platelet Count 211 K/mcL (140-400); Red Blood Count 4.44 M/mcL (3.82-4.97); Red Cell Distribution Width 15.3 % (11.5-14.5); Segmented Neutrophils % 66.7 %
[2017-08-02 06:20] LABS: BUN/Creatinine Ratio 20 (6-26); Blood Urea Nitrogen 11 mg/dL (6-20); Calcium 8.9 mg/dL (8.6-10.3); Carbon Dioxide 27 mEq/L (23-29); Chloride 107 mEq/L (98-107); Glucose 229 mg/dL (70-105); Magnesium 1.7 mg/dL (1.6-2.6); Osmolality,Calculated 293 (280-300); Phosphorous 3.8 mg/dL (2.7-4.5); Potassium 4.1 mEq/L (3.5-5.1); Sodium 138 mEq/L (136-145); eGFR For African Americans > 60 (> 60); eGFR For Non-African Americans > 60 (> 60)
[2017-08-02] MEDS: *HR* Dabigatran 150 MG CAPSULE PO SCH ×2 (08:19→20:21)
[2017-08-02] MEDS: *HR* HYDROcodone/Acet 5/325 mg TABLET PO PRN ×3 (08:19→22:17)
[2017-08-02] MEDS: Aspirin Enteric Coated 81 MG Tablet PO SCH (08:19)
[2017-08-02] MEDS: Vancomycin Oral Soln 250 MG/5 ML UDC PO SCH ×4 (08:20→20:22)
[2017-08-02] MEDS: Insulin LISPRO 300 UNITS/3 ML VIAL SQ SCH ×4 (08:21→21:04)
[2017-08-02 15:51] LABS: Hematocrit 34.8 % (35.3-44.9); Hemoglobin 11.1 g/dL (11.5-15.4)
--- NOTE | 2017-08-02 16:16 | Internal Med Progress Note ---
Date of Encounter: 08/02/17 Time of Encounter: 16:08 - Assessment and plan (1) Abdominal pain Current Visit: No Status: Chronic Assessment and plan: Likely viral gastroenteritis. Stool studies came back negative. She seems well nourished and is not in any acute distress. DC Flagyl. Continue Vancomycin PO because patient is finishing a course from prior admission Refractory to treatment: obtain CT abdomen/pelvis Qualifiers: Abdominal location: generalized Qualified Code(s): R10.84 - Generalized abdominal pain (2) Diarrhea Current Visit: Yes Status: Acute Assessment and plan: Patient reports an excessive amount of diarrhea today, but she clinically does not appear in any significant distress. Furthermore, she does not look dehydrated and is hungry, requesting to eat. Her complaints of abdominal pain do not correlate with her exam findings. WBC normal on admission at 8, now today is 12. We will treat her for C. Diff Colitis with Vancomycin and Flagyl, repeat her stool GI Panel, and consult GI as already done in ER. We will treat her abdominal pain with judicious pain medication as necessary. I do not feel she needs a CT of abdomen at this time. However, if her conditions worsens, we will proceed with imaging. Furthermore, on her last GI panel, she had negative C. Diff toxin but positive Campylobacter. As per HPI, over phone, GI recommended treating patient with a vancomycin PO taper. C diff negative Continue PO vancomycin taper to continue previous treatment of C diff colitis. Discontinue IV Flagyl Qualifiers: Diarrhea type: presumed infectious Qualified Code(s): R19.7 - Diarrhea, unspecified (3) Chest pain Current Visit: No Status: Acute Assessment and plan: Troponin negative x2 on initial workup. Still having pain that radiates towards her upper abdomen towards her back. Will obtain CT scan chest/abdomen rule out AAA, PE. 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 Will monitor. Currently she has no signs of active bleeding and she is hemodynamically stable. Qualifiers: Anemia type: unspecified type Qualified Code(s): D64.9 - Anemia, unspecified - Subjective Interval history: Patient states abdominal pain still persisting, also states she has nausea. generalized malaise. She denies fevers/chills. - Constitutional Vitals: Temp Pulse Resp BP Pulse Ox 98.2 F 58 18 109/50 94 08/02/17 15:00 08/02/17 15:00 08/02/17 15:00 08/02/17 15:00 08/02/17 15:00 General appearance: Present: A&O X 3, no acute distress - Head Head exam: Present: atraumatic, normocephalic - Eye Eye exam: Present: PERRL, conjuntiva pink, sclera anicteric Pupils: Present: PERRL - Neck Neck exam general surgery: Present: supple, trachea midline. Absent: lymphadenopathy - Respiratory Respiratory exam: Present: CTAB. Absent: accessory muscle use, rales, rhonchi, wheezes - Cardiovascular Cardiovascular exam: Present: RRR, +S1, +S2. Absent: diastolic murmur, gallop, rubs, systolic murmur - GI/Abdominal GI/Abdominal exam: Present: normal bowel sounds, soft, tenderness, no peritoneal signs. Absent: distended, firm, guarding - Extremities Exam Extremities exam: Present: warm, radial pulses palpable and symmetrical. Absent : calf tenderness, cyanotic, pedal edema - Neurological Exam Neurological exam: Present: CN II-XII intact, oriented X3, no focal deficits. Absent: pronater drift, facial droop, speech deficit - Skin Skin exam: Present: dry, intact Internal Medicine: Result - Labs CBC & Chem 7: 08/02/17 15:30 08/02/17 05:50 Labs: Short CBC 08/01/17 08/02/17 08/02/17 Range/Units 15:52 05:50 15:30 WBC 6.8 (4.3-11.1) K/mcL Hgb 11.5 10.7 L 11.1 L (11.5-15.4) g/dL Hct 37.0 35.0 L 34.8 L (35.3-44.9) % Plt Count 211 (140-400) K/mcL Neutrophils # 4.6 (1.6-8.9) K/mcL BMP 08/02/17 05:50 Sodium 138 Potassium 4.1 Chloride 107 Carbon Dioxide 27 BUN 11 Creatinine 0.56 L Glucose 229 H Calcium 8.9 Consult Discharge Plan - Plan Referrals: Joanne Paez MD [Primary Care Provider] - 08/09/17 10:45 am
[2017-08-02] MEDS: clonazePAM 0.5 MG TABLET PO SCH (20:21)
[2017-08-03 04:56] LABS: Basophils % 0.3 %; Eosinophils # 0.3 K/mcL (0.0-0.6); Eosinophils % 3.6 %; Hematocrit 34.6 % (35.3-44.9); Hemoglobin 10.9 g/dL (11.5-15.4); Immature Granulocytes % 0.4 % (0-4); Lymphocytes # 1.5 K/mcL (0.6-4.6); Lymphocytes % 21.3 %; Mean Corpuscular HGB Conc 31.5 g/dL (31.6-35.5); Mean Corpuscular Hemoglobin 24.8 pg (28.0-33.3); Mean Corpuscular Volume 78.6 fL (83.0-100.0); Mean Platelet Volume 10.7 fL (9.4-12.4); Monocytes # 0.3 K/mcL (0.0-1.3); Monocytes % 4.3 %; Neutrophils # 4.9 K/mcL (1.6-8.9); Platelet Count 197 K/mcL (140-400); Red Cell Distribution Width 15.6 % (11.5-14.5); Segmented Neutrophils % 70.1 %
[2017-08-03 06:20] LABS: BUN/Creatinine Ratio 16 (6-26); Blood Urea Nitrogen 9 mg/dL (6-20); Calcium 8.8 mg/dL (8.6-10.3); Carbon Dioxide 26 mEq/L (23-29); Chloride 106 mEq/L (98-107); Glucose 314 mg/dL (70-105); Osmolality,Calculated 297 (280-300); Potassium 4.1 mEq/L (3.5-5.1); Sodium 138 mEq/L (136-145); eGFR For African Americans > 60 (> 60); eGFR For Non-African Americans > 60 (> 60)
[2017-08-03 07:49] VITALS: BP 122/79
[2017-08-03] MEDS: Aspirin Enteric Coated 81 MG Tablet PO SCH (08:01)
[2017-08-03] MEDS: *HR* Dabigatran 150 MG CAPSULE PO SCH (08:01)
[2017-08-03] MEDS: Vancomycin Oral Soln 250 MG/5 ML UDC PO SCH (08:02)
[2017-08-03] MEDS: *HR* HYDROcodone/Acet 5/325 mg TABLET PO PRN (08:06)
[2017-08-03] MEDS: Insulin LISPRO 300 UNITS/3 ML VIAL SQ SCH ×2 (08:07→12:53)
[2017-08-03] MEDS ORDERED: Insulin DETEMIR 100 UNIT/ML X5UNITS SQ ONE (08:19)
--- NOTE | 2017-08-03 10:21 | Discharge Summary ---
Date of Encounter: 08/03/17 Time of Encounter: 10:18 - Discharge Diagnosis (1) Abdominal pain Priority: Primary Status: Chronic Qualifiers: Abdominal location: generalized Qualified Code(s): R10.84 - Generalized abdominal pain (2) Diarrhea Priority: Secondary Status: Acute Qualifiers: Diarrhea type: presumed infectious Qualified Code(s): R19.7 - Diarrhea, unspecified (3) Chest pain Priority: Secondary Status: Acute Qualifiers: Chest pain type: unspecified Qualified Code(s): R07.9 - Chest pain, unspecified (4) Paroxysmal atrial fibrillation Priority: Secondary Status: Chronic (5) Recurrent Clostridium difficile diarrhea Priority: Secondary Status: Chronic (6) Type 2 diabetes mellitus Priority: Secondary Status: Chronic Qualifiers: Diabetes mellitus complication status: with neurologic complications Diabetes mellitus complication detail: with polyneuropathy 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 Qualified Code(s): E11.42 - Type 2 diabetes mellitus with diabetic polyneuropathy; 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 (7) Weakness Priority: Secondary Status: Chronic (8) Anemia Priority: Secondary Status: Acute Qualifiers: Anemia type: unspecified type Qualified Code(s): D64.9 - Anemia, unspecified - Discharge Medications Prescriptions: HYDROcodone/Acet 5/325 mg [Acra 5-325 mg] 1 tab PO Q6H PRN #12 tablet PRN Reason: Pain Home Medications: Aspirin [Adult Low Dose Aspirin EC] 81 mg PO DAILY 10/26/15 [History] Etonogestrel [Nexplanon] 68 mg SQ AD 10/26/15 [History] metFORMIN [Glucophage] 1,000 mg PO BIDWM 10/26/15 [History] clonazePAM [Klonopin] 0.5 mg PO HS 03/04/17 [History] Dabigatran Etexilate Mesylate [Pradaxa] 150 mg PO BID 05/12/17 [History] Flecainide 100 mg PO BID 05/12/17 [History] Omeprazole [PriLOSEC] 40 mg PO DAILY 05/12/17 [History] Atorvastatin Calcium [Lipitor] 20 mg PO HS 06/03/17 [History] Sertraline [Zoloft] 300 mg PO DAILY 06/03/17 [History] traZODone [TraZODone] 50 - 100 mg PO HS PRN 06/03/17 [History] Lisinopril [Zestril] 5 mg PO DAILY tablet 06/20/17 [Rx] Albuterol Sulfate [Ventolin Hfa] 2 puff IH Q4H PRN 07/09/17 [History] Insulin ASPART [Novolog Flexpen] 0 unit SQ TIDWM 07/30/17 [History] Insulin Glargine,Hum.rec.anlog [Lantus Solostar] 50 unit SQ BID 07/30/17 [ History] Metoprolol [Lopressor] 50 mg PO BID 07/30/17 [History] HYDROcodone/Acet 5/325 mg [Acra 5-325 mg] 1 tab PO Q6H PRN #12 tablet 08/03/17 [Rx] Allergies/Adverse Reactions: 3 Allergy/AdvReac Type Severity Reaction Status Date / Time No Known Allergies Allergy Verified 06/30/17 15:31 Procedures/tests Complete & Pending: Procedures Performed prior 72 hours Category Date Time Status CT abd pelvis w iv and oral [CT] Routine Cat Scan 08/02/17 21:[address] angio chest [CT] Routine Cat Scan 08/02/17 21:30 Completed EKG [ECG 12 lead ECG] [ECG] Routine Y 08/02/17 16:14 Ordered Date of admission: 07/30/17 16:17 Primary care physician: Joanne Paez Consults: 07/31/17 08:29 Consult to Invasive Line Access Team [CONS] Routine Reason for Consult: EPIV Line Type: EPIV 07/31/17 10:32 Consult to Invasive Line Access Team [CONS] Routine Reason for Consult: Limited vascular access Line Type: EPIV Discharging clinician: Femi Gudino - Patient Status Disposition: Home, Self-Care Condition: Good Functional capacity at discharge: independent ambulation Overall status at discharge: patient is back to baseline - Discharge Instructions Follow Up With: Joanne Paez MD [Primary Care Provider] - 08/09/17 10:45 am - Diet and Activity Activity: increase activity as tolerated Diet: diabetic diet Hospital course: Ms. Jacome is a 51 year old female presented to the emergency department for evaluation of abdominal pain and diarrhea and weakness. The patient has been diagnosed and treated for C. difficile in the past few months multiple times. She was discharged 14 days ago with a prescription for oral vancomycin of 10 days. She stated she was able to tolerate food and had semi-formed stools while taking the vancomycin but when the medication was completed 4 days ago she had a return of her diarrhea. She stated she had 20 bowel movements at home today and 7 in the ER while she was waiting down there. She states the pain is generalized abdomen, does not radiate, feels like a cramping and aching , and feels exactly similar to her previous C. difficile exacerbations. Had difficulty tolerating PO. She states she came to the hospital because she could not stand the abdominal pain any longer. The patient follows with banking assistant . He was called by the ER. and A vancomycin taper was ordered per recommendations. She was admitted for monitoring and treatment. She was started on PO vancomycin and IV Flagyl. She had episodes of chest pain , workup done, with negative troponin x2, and EKG unremarkable. A CTA chest was done and was negative. Stool studies were negative including negative C diff. Diarrhea eventually resolved, stool was soft and brown. Pain improved. Patient had acute drop in hemoglobin but it was found to be lab error after repeat testing. She was discharged in stable condition to complete vancomycin PO taper per GI recommendation. We advised patient to call GI and schedule follow-up appointment as soon as possible, patient agrees to this. - Time Spent with Patient Total time spent providing and/or coordinating discharge services: - Constitutional Vitals: Temp Pulse Resp BP Pulse Ox 98.3 F 70 16 122/79 95 08/03/17 07:48 08/03/17 07:48 08/03/17 07:48 08/03/17 07:48 08/03/17 07:48 General appearance: Present: A&O X 3, no acute distress - Head Head exam: Present: atraumatic, normocephalic - Eye Eye exam: Present: PERRL, conjuntiva pink, sclera anicteric Pupils: Present: PERRL - Neck Neck exam general surgery: Present: supple, trachea midline. Absent: lymphadenopathy - Respiratory Respiratory exam: Present: CTAB. Absent: accessory muscle use, rales, rhonchi, wheezes - Cardiovascular Cardiovascular exam: Present: RRR, +S1, +S2. Absent: diastolic murmur, gallop, rubs, systolic murmur - GI/Abdominal GI/Abdominal exam: Present: normal bowel sounds, soft, no peritoneal signs. Absent: distended, tenderness - Extremities Exam Extremities exam: Present: warm, radial pulses palpable and symmetrical. Absent : calf tenderness, cyanotic, pedal edema - Neurological Exam Neurological exam: Present: CN II-XII intact, oriented X3, no focal deficits. Absent: pronater drift, facial droop, speech deficit - Skin Skin exam: Present: dry, intact
== END 2017-08-03 14:30 | disposition home or self-care (01) ==
LOC: EMEROO 11:34 → INTOOBSV 16:17 → 3ANU 16:17 → SUATTDRO 16:17 → 3ANU 16:49
PROVIDERS: ADMIT Hospitalist; ATTEND Student in an Organized Health Care Education/Training Program

== ENCOUNTER 2017-11-18 10:32 | Inpatient (IN) ==
--- NOTE | 2017-11-18 10:54 | Emergency Department Note ---
Disposition Clinical Impression: CVA (cerebral vascular accident) Qualifiers: CVA mechanism: unspecified Qualified Code(s): I63.9 - Cerebral infarction, unspecified Disposition: Admitted As Inpatient Condition: Fair Forms: ED Satisfaction Letter Time of Disposition: 14:32 Neuro HPI - General Chief Complaint: ED Neuro Symptoms/Deficit Stated Complaint: R side numbness/an throat an head numbness Time Seen by Provider: 11/18/17 10:46 Source: patient Mode of arrival: ambulatory Limitations: no limitations Nursing Notes Reviewed: Yes Vital Signs Reviewed: Yes - History of Present Illness HPI Narrative: 51-year-old who comes in complaining of new onset right-sided numbness of some weakness in her arm slurred speech and difficulty swallowing. Patient states symptoms began on at about 4 PM. History of previous stroke back couple years ago with left-sided residual. Onset of Symptoms Date: 11/14/17 Onset of Symptoms Time: 16:00 Symptom Onset Unknown: No Location: speech, dysarthria, right arm, right leg, other (Difficulty swallowing ) History of same: No Severity: moderate Quality: weakness, numbness Symptoms Improving: No Improves with: none Worsens with: none Context: sudden onset On Anticoagulants: Yes (Pradaxa) Associated symptoms: Reports: denies other symptoms Treatments Prior to Arrival: none - Related Data Home Medications: Home Medications Medication Instructions Recorded Confirmed Aspirin [Adult Low Dose Aspirin EC] 81 mg PO DAILY 10/26/15 07/30/17 Etonogestrel [Nexplanon] 68 mg SQ AD 10/26/15 07/30/17 metFORMIN [Glucophage] 1,000 mg PO BIDWM 10/26/15 07/30/17 clonazePAM [Klonopin] 0.5 mg PO HS 03/04/17 07/30/17 Dabigatran Etexilate Mesylate 150 mg PO BID 05/12/17 07/30/17 [Pradaxa] Flecainide 100 mg PO BID 05/12/17 07/30/17 Omeprazole [PriLOSEC] 40 mg PO DAILY 05/12/17 07/30/17 Atorvastatin Calcium [Lipitor] 20 mg PO HS 06/03/17 07/30/17 Sertraline [Zoloft] 300 mg PO DAILY 06/03/17 07/30/17 traZODone [TraZODone] 50 - 100 mg PO HS PRN 06/03/17 07/30/17 Albuterol Sulfate [Ventolin Hfa] 2 puff IH Q4H PRN 07/09/17 07/30/17 Insulin ASPART [Novolog Flexpen] 0 unit SQ TIDWM 07/30/17 07/30/17 Insulin Glargine,Hum.rec.anlog 50 unit SQ BID 07/30/17 07/30/17 [Lantus Solostar] Metoprolol [Lopressor] 50 mg PO BID 07/30/17 07/30/17 Previous Rx's Medication Instructions Recorded Lisinopril [Zestril] 5 mg PO DAILY tablet 06/20/17 HYDROcodone/Acet 5/325 mg [[place] 1 tab PO Q6H PRN #12 tablet 08/03/17 5-325 mg] metroNIDAZOLE [Flagyl] 500 mg PO TID #30 tablet 08/03/17 Acetaminophen [Tylenol] 500 mg PO Q6HR PRN #20 tablet 09/09/17 Amoxicillin 875 mg PO BID #20 tablet 09/09/17 Benzonatate [Tessalon] 200 mg PO TID PRN #20 capsule 09/09/17 Allergies/Adverse Reactions: Allergies Allergy/AdvReac Type Severity Reaction Status Date / Time No Known Allergies Allergy Verified 08/08/17 15:33 All systems ED: reviewed and negative except as stated. Constitutional: Denies: fever, chills, weakness, weight change Eyes: Denies: eye pain, eye discharge, vision change ENT ED: Denies: ear pain, throat pain, dental pain, hearing loss, epistaxis, congestion, dysphagia Cardiovascular: Denies: chest pain, palpitations, dyspnea on exertion, edema, syncope Respiratory: Denies: cough, dyspnea, wheezes, hemoptysis, stridor Gastrointestinal: Denies: abdominal pain, nausea, vomiting, diarrhea, constipation, hematemesis, melena, hematochezia Genitourinary: Denies: dysuria, frequency, hematuria, discharge Musculoskeletal: Denies: back pain, neck pain, arthralgia, myalgia Integumentary: Denies: rash, abrasion, lesions Neurological: Reports: weakness, numbness, other (Dysphagia). Denies: headache , paresthesias, confusion, abnormal gait, vertigo Psychiatric: Denies: anxiety, depression, suicidal thoughts, homicidal thoughts , auditory hallucinations, visual hallucinations Endocrine: Denies: fatigue Hematological/Lymphatic: Denies: easy bleeding, easy bruising Allergic/Immunologic: Denies: facial swelling, urticaria Past Medical History - Past Medical History Medical history: Reports: other Surgical history: Reports: , cholecystectomy Psychiatric history: Reports: anxiety, depression [employer] history: Reports: no [employer] history - Social History Smoking Status: Never smoker Smokeless Tobacco Status: No Alcohol use: Reports: none Drug use: Reports: none Physical Exam - General Limitations: no limitations General appearance: alert, in no apparent distress - Head Head exam: atraumatic, normocephalic, normal inspection - Eye Eye exam: Present: normal appearance, PERRL, EOMI - ENT ENT exam: normal exam, normal oropharynx, mucous membranes moist - Neck Neck exam: Present: normal inspection, full ROM, trachea midline - Chest Chest inspection: Present: normal inspection, symmetric chest wall rise - Respiratory Respiratory exam: Present: normal lung sounds bilaterally - Cardiovascular Cardiovascular exam: Present: regular rate, normal rhythm, normal heart sounds - Abdominal Exam Abdominal exam: Present: soft, Non-Tender. Absent: tenderness, distention, guarding, rebound, rigidity - Extremities Exam Extremities exam: Present: normal inspection, full ROM. Absent: tenderness, pedal edema - Expanded Lower Extremity Exam Neurovascular/Tendon exam: Absent: motor deficit, sensory deficit, tendon deficit Gait: not tested/not observed - Back Exam Back exam: Present: normal inspection, full ROM. Absent: tenderness - Neurological Exam Neurological exam: Present: alert, motor sensory deficit - Psychiatric Psychiatric exam: Present: normal affect, normal mood - Skin Skin exam: Present: warm, dry, intact, normal color Course - Reevaluation(s) Reevaluation #1: 51-year-old with difficulty swallowing slurred speech that started 4 days ago. Patient is not a TPA candidate. Patient will be admitted for further evaluation and treatment. Time: 14:31 - Consultations Consultation #1: Discussed with , admit. Time: 14:32 Vital Signs Temperature 98.5 F 11/18/17 10:40 Pulse Rate 76 11/18/17 10:40 Respiratory Rate 18 11/18/17 10:40 Blood Pressure 143/81 11/18/17 10:40 O2 Sat by Pulse Oximetry 98 11/18/17 10:40 Temperature 98.5 F 11/18/17 10:51 Pulse Rate 73 11/18/17 14:28 Respiratory Rate 18 11/18/17 10:51 Blood Pressure 143/81 11/18/17 10:51 O2 Sat by Pulse Oximetry 99 11/18/17 14:28 Oxygen Delivery Oxygen Delivery Room Air Neuro Symptoms/Deficit - Lab Data Result diagrams: 11/18/17 11:29 11/18/17 11:29 Lab Results 11/18/17 11/18/17 11/18/17 Range/Units 11:29 11:29 11:43 WBC 7.7 (4.3-11.1) K/mcL RBC 5.19 H (3.82-4.97) M/mcL Hgb 12.8 (11.5-15.4) g/dL Hct 40.2 (35.3-44.9) % MCV 77.5 L (83.0-100.0) fL MCH 24.7 L (28.0-33.3) pg MCHC 31.8 (31.6-35.5) g/dL RDW 15.6 H (11.5-14.5) % Plt Count 249 (140-400) K/mcL MPV 10.0 (9.4-12.4) fL Immature Gran % 0.5 (0-4) % Seg Neutrophils % 71.0 % Lymphocytes % 21.3 % Monocytes % 4.4 % Eosinophils % 2.3 % Basophils % 0.5 % Neutrophils # 5.4 (1.6-8.9) K/mcL Lymphocytes # 1.6 (0.6-4.6) K/mcL Monocytes # 0.3 (0.0-1.3) K/mcL Eosinophils # 0.2 (0.0-0.6) K/mcL Basophils # 0.0 (0.0-0.2) K/mcL PT (9.4-12.1) Seconds INR APTT (26.0-36.0) Seconds Sodium 138 (136-145) mEq/L Potassium 4.0 (3.5-5.1) mEq/L Chloride 105 (98-107) mEq/L Carbon Dioxide 25 (23-29) mEq/L BUN 11 (6-20) mg/dL Creatinine 0.60 (0.60-1.20) mg/dL Est GFR ( Amer) > 60 (> 60) Est GFR (Non-Af Amer) > 60 (> 60) BUN/Creatinine Ratio 18 (6-26) Glucose 212 H (70-105) mg/dL POC Glucose 211 H (70-99) mg/dL Calculated Osmolality 292 (280-300) Calcium 9.8 (8.6-10.3) mg/dL Troponin I < 0.03 (< 0.04) ng/mL 11/18/17 11/18/17 Range/Units 11:44 12:34 WBC (4.3-11.1) K/mcL RBC (3.82-4.97) M/mcL Hgb (11.5-15.4) g/dL Hct (35.3-44.9) % MCV (83.0-100.0) fL MCH (28.0-33.3) pg MCHC (31.6-35.5) g/dL RDW (11.5-14.5) % Plt Count (140-400) K/mcL MPV (9.4-12.4) fL Immature Gran % (0-4) % Seg Neutrophils % % Lymphocytes % % Monocytes % % Eosinophils % % Basophils % % Neutrophils # (1.6-8.9) K/mcL Lymphocytes # (0.6-4.6) K/mcL Monocytes # (0.0-1.3) K/mcL Eosinophils # (0.0-0.6) K/mcL Basophils # (0.0-0.2) K/mcL PT 11.0 (9.4-12.1) Seconds INR 1.0 APTT 32.7 (26.0-36.0) Seconds Sodium (136-145) mEq/L Potassium (3.5-5.1) mEq/L Chloride (98-107) mEq/L Carbon Dioxide (23-29) mEq/L BUN (6-20) mg/dL Creatinine (0.60-1.20) mg/dL Est GFR ( Amer) (> 60) Est GFR (Non-Af Amer) (> 60) BUN/Creatinine Ratio (6-26) Glucose (70-105) mg/dL POC Glucose 209 H (70-99) mg/dL Calculated Osmolality (280-300) Calcium (8.6-10.3) mg/dL Troponin I (< 0.04) ng/mL NIH Stroke Scale - Level of Consciousness LOC: Alert - LOC Questions LOC Questions: Answers both correctly - LOC Commands LOC Commands: Performs both correctly - Best Gaze Best Gaze: Normal - Visual Visual: No visual loss - Facial Palsy Facial Palsy: Minor asymmetry on smiling, flattened nasolabial fold - Motor Arms Motor Arm-Left: No drift for 10 seconds Motor Arm-Right: No drift for 10 seconds - Motor Legs Motor Leg-Left: No drift for 5 seconds Motor Leg-Right: No drift for 5 seconds - Limb Ataxia Limb Ataxia: Normal, No Ataxia - Sensory Sensory: Mild to moderate loss, "not as sharp" - Best Language Best Language: No aphasia - Dysarthria Dysarthria: Mild, slurs some words - Extinction and Inattention Extinction and Inattention: Normal - NIHSS Total Score NIHSS Total Score: 3 TPA Checklist - Eligibilty for IV tPA 1. LKW equal to or less than 4.5 hours be before treatment: No - LKW: 3-4.5 hrs Add. Warnings/Precautions Patient/family understanding: The patient/family members have been counseled and understood the risk, benefit , and alternatives of treatment.
[2017-11-18 12:00] LABS: Basophils % 0.5 %; Eosinophils # 0.2 K/mcL (0.0-0.6); Eosinophils % 2.3 %; Hematocrit 40.2 % (35.3-44.9); Hemoglobin 12.8 g/dL (11.5-15.4); Immature Granulocytes % 0.5 % (0-4); Lymphocytes # 1.6 K/mcL (0.6-4.6); Lymphocytes % 21.3 %; Mean Corpuscular HGB Conc 31.8 g/dL (31.6-35.5); Mean Corpuscular Hemoglobin 24.7 pg (28.0-33.3); Mean Corpuscular Volume 77.5 fL (83.0-100.0); Monocytes # 0.3 K/mcL (0.0-1.3); Monocytes % 4.4 %; Neutrophils # 5.4 K/mcL (1.6-8.9); Platelet Count 249 K/mcL (140-400); Red Blood Count 5.19 M/mcL (3.82-4.97); Red Cell Distribution Width 15.6 % (11.5-14.5)
[2017-11-18 12:25] LABS: BUN/Creatinine Ratio 18 (6-26); Blood Urea Nitrogen 11 mg/dL (6-20); Calcium 9.8 mg/dL (8.6-10.3); Carbon Dioxide 25 mEq/L (23-29); Chloride 105 mEq/L (98-107); Glucose 212 mg/dL (70-105); Osmolality,Calculated 292 (280-300); Sodium 138 mEq/L (136-145); eGFR For African Americans > 60 (> 60); eGFR For Non-African Americans > 60 (> 60)
[2017-11-18 12:26] LABS: Troponin I < 0.03 ng/mL (< 0.04)
[2017-11-18 13:26] LABS: Activated Partial Thrombo Time 32.7 Seconds (26.0-36.0)
[2017-11-18] MEDS ORDERED: Naloxone 0.4 MG/ML INJ IVP PRN (15:54)
--- NOTE | 2017-11-18 16:23 | Internal Med History&Physical ---
Date of Encounter: 11/19/17 Time of Encounter: 16:22 Internal Medicine - H&P: HPI Chief complaint: abnormal speech Admitted From: Emergency Dept Plans for Post Hospital Care: Home History of present illness: Ms. Jacome is a 51 year old female with a background medical history of diabetes , hypertension, dyslipidemia, paroxysmal atrial fibrillation, morbid obesity, previous CVA. Patient presented to emergency room with new onset of right-sided numbness/ tingling which started when she woke up from the morning also patient states that she has off and on symptoms with started on at about 4 PM.. Patient also claims that she has some difficulty in swallowing. Patient has slurred speech for a while. Patient denies chest pain, nausea, vomiting, shortness of breath, abdominal pain, dizziness and diarrhea. Workup in the emergency room: Patient was evaluated in the emergency room. Baseline labs were drawn. Appropriate imaging was done. Reason for admission: TIA to rule out CVA. Family history: Noncontributory Past Med Surg Social Fam HX - Past Medical History Medical history: other Psychiatric history: anxiety, depression - Past Surgical History Surgical History: , cholecystectomy - Social History Smoking Status: Never smoker Smokeless Tobacco Status: No Alcohol use: none Drug use: none - Family History Mother Living Status: Hx Family Cardiac Disorders: Yes Hx Family Respiratory Disorders: Yes (copd) Hx Family Cancer: Yes (lung cancer) Hx Family Endocrine Disorder: Yes (DM type II) Father Adopted: No Family Member Ethnicity: Non- Living Status: Hx Family Cardiac Disorders: Yes Hx Family Respiratory Disorders: Yes Hx Family Cancer: Yes (LUNG) Hx Family GI Disorders: No Hx Family Endocrine Disorder: Yes (DM) Hx Family Neuromuscular Disorders: No Hx Family Neurologic Disorders: No Hx Family HEENT Disorders: No Hx Family Autoimmune Disorders: No Internal Medicine - H&P: Meds Aspirin [Adult Low Dose Aspirin EC] 81 mg PO DAILY 10/26/15 [History] Etonogestrel [Nexplanon] 68 mg SQ AD 10/26/15 [History] metFORMIN [Glucophage] 1,000 mg PO BIDWM 10/26/15 [History] clonazePAM [Klonopin] 0.5 mg PO HS 03/04/17 [History] Dabigatran Etexilate Mesylate [Pradaxa] 150 mg PO BID 05/12/17 [History] Flecainide 100 mg PO BID 05/12/17 [History] Omeprazole [PriLOSEC] 40 mg PO DAILY 05/12/17 [History] Atorvastatin Calcium [Lipitor] 20 mg PO HS 06/03/17 [History] Sertraline [Zoloft] 300 mg PO DAILY 06/03/17 [History] traZODone [TraZODone] 50 - 100 mg PO HS PRN 06/03/17 [History] Lisinopril [Zestril] 5 mg PO DAILY tablet 06/20/17 [Rx] Albuterol Sulfate [Ventolin Hfa] 2 puff IH Q4H PRN 07/09/17 [History] Metoprolol [Lopressor] 50 mg PO BID 07/30/17 [History] HYDROcodone/Acet 5/325 mg [[place] 5-325 mg] 1 tab PO Q6H PRN #12 tablet 08/03/17 [Rx] Acetaminophen [Tylenol] 500 mg PO Q6HR PRN #20 tablet 09/09/17 [Rx] Amitriptyline [Elavil] 50 mg PO DAILY 11/18/17 [History] Hyoscyamine SL [Levsin SL] 0.125 mg SL QID 11/18/17 [History] Insulin Glargine,Hum.rec.anlog [Basaglar Kwikpen U-100] 50 units SQ BID [History] Tizanidine HCl 4 mg PO BID PRN 11/18/17 [History] 3 Allergy/AdvReac Type Severity Reaction Status Date / Time No Known Allergies Allergy Verified 11/18/17 15:03 All Systems PM: A 10-system review of systems was performed and is negative for pertinent findings except as documented above in the HPI. - Constitutional Constitutional: no chills, no fever(s), no night sweats - EENT Eyes: no change in vision, no discharge, no pain, no photophobia Ears: no ear discharge, no ear pain, no tinnitus Nose, mouth and throat: no dysphagia, no nasal discharge, no neck pain, no sore throat - Cardiovascular Cardiovascular ROS IM: no chest pain, no diaphoresis, no dyspnea, no lightheadedness, no palpitations, no syncope - Respiratory Respiratory: no cough, no dyspnea, no wheezing, no excessive phlegm production - Gastrointestinal Gastrointestinal: no abdominal pain, no diarrhea, no hematemesis, no hematochezia, no melena, no nausea, no vomiting - Genitourinary Genitourinary: no change in urinary stream, no dysuria, no flank pain, no hematuria - Musculoskeletal Musculoskeletal ROS IM: no numbness, no tingling - Integumentary Integumentary IM: no rash, no unusual bruising - Neurological Neurological ROS: focal weakness, numbness, tingling, no confusion, no convulsions, no tremor(s) - Hematologic/Lymphatic Hematologic/Lymphatic: no easy bruising - Constitutional Vitals: Temp Pulse Resp BP Pulse Ox 98.5 F 73 18 154/83 99 11/18/17 10:51 11/18/17 14:28 11/18/17 10:51 11/18/17 14:28 11/18/17 14:28 General appearance: Present: A&O X 3, pleasant, no acute distress, answers questions appropriately - Head Head exam: Present: atraumatic, normocephalic - Eye Eye exam: Present: PERRL, conjuntiva pink, sclera anicteric Pupils: Present: PERRL - Neck Neck exam general surgery: Present: supple, trachea midline. Absent: lymphadenopathy - Respiratory Respiratory exam: Present: CTAB. Absent: accessory muscle use, rales, rhonchi, wheezes - Cardiovascular Cardiovascular exam: Present: RRR, +S1, +S2. Absent: diastolic murmur, gallop, rubs, systolic murmur - GI/Abdominal GI/Abdominal exam: Present: normal bowel sounds, soft, no peritoneal signs. Absent: distended, tenderness - Extremities Exam Extremities exam: Present: warm, radial pulses palpable and symmetrical. Absent : calf tenderness, cyanotic, pedal edema - Neurological Exam Neurological exam: Present: CN II-XII intact, oriented X3, no focal deficits. Absent: pronater drift, facial droop, speech deficit - Skin Skin exam: Present: dry, intact Internal Med - H&P Results - Labs CBC & Chem 7: 11/19/17 04:48 11/19/17 04:48 - Assessment and plan (1) TIA (transient ischemic attack) Current Visit: No Status: Acute Assessment and plan: 51/female Admitted with possible TIA. Plan: Admit as inpatient. Aspirin/statin. Physical therapy/occupational therapy/speech therapy evaluation. MRI brain. Echocardiogram. Ultrasound carotid. I have examined this patient in the emergency room. Than of care extent to the patient. She verbalized understanding. Qualifiers: Transient cerebral ischemia type: carotid artery syndrome (hemispheric) Qualified Code(s): G45.1 - Carotid artery syndrome (hemispheric) (2) Hyperlipemia Current Visit: No Status: Chronic Assessment and plan: Changes known to have hyperlipidemia. We will resume the home medication that is Lipitor. Close monitoring of the lipid panel Qualifiers: Hyperlipidemia type: unspecified Qualified Code(s): E78.5 - Hyperlipidemia , unspecified (3) Diabetes mellitus, type II, insulin dependent Current Visit: No Status: Chronic Assessment and plan: Patient is known to have type 2 diabetes mellitus. We will follow the recommendations from subcutaneous insulin order set. (4) Obesity (BMI 30-39.9) Current Visit: No Status: Chronic Assessment and plan: Patient will benefit from outpatient evaluation from bariatric surgery. (5) HTN (hypertension) Current Visit: No Status: Chronic Assessment and plan: Patient is known to have a hypertension. We will resume home medication. We will closely monitor the blood pressure during this hospitalization Qualifiers: Hypertension type: essential hypertension Qualified Code(s): I10 - Essential (primary) hypertension (6) DVT prophylaxis Current Visit: No Status: Acute Assessment and plan: Dabigatran Medical decision making: This patient has a moderate to severe risk of worsening in spite of being on appropriate medication due to the underlying complex medical condition. - Time Spent With Patient Total time spent is greater than 50% in coordination of care (as documented) at patient's floor/unit and/or counseling patient:
[2017-11-18] MEDS ORDERED: *HR* FentaNYL (PF) 100 MCG/2 ML VIAL IVP ONE (17:16)
[2017-11-18] MEDS: 0.9 % Sodium Chloride 1,000 ML IVC SCH (17:24)
[2017-11-18] MEDS: Hyoscyamine SL 0.125 MG TAB.SUBL SL SCH ×2 (17:25→21:00)
[2017-11-18] MEDS: *HR* HYDROcodone/Acet 5/325 mg TABLET PO PRN (21:00)
[2017-11-18] MEDS ORDERED: Insulin DETEMIR 100 UNIT/ML X5UNITS SQ SCH (21:00)
[2017-11-18] MEDS: clonazePAM 0.5 MG TABLET PO SCH (21:01)
[2017-11-18] MEDS: *HR* Dabigatran 150 MG CAPSULE PO SCH (21:02)
[2017-11-18] MEDS: Insulin DETEMIR 100 UNIT/ML X5UNITS SQ SCH (23:23)
[2017-11-19] MEDS ORDERED: Ketorolac 15 MG/ML VIAL IVP ONE (00:38)
[2017-11-19 05:17] LABS: Basophils # 0.1 K/mcL (0.0-0.2); Basophils % 0.8 %; Eosinophils # 0.2 K/mcL (0.0-0.6); Eosinophils % 2.7 %; Hematocrit 38.7 % (35.3-44.9); Hemoglobin 12.1 g/dL (11.5-15.4); Immature Granulocytes % 0.3 % (0-4); Lymphocytes # 1.6 K/mcL (0.6-4.6); Lymphocytes % 24.8 %; Mean Corpuscular HGB Conc 31.3 g/dL (31.6-35.5); Mean Corpuscular Hemoglobin 23.9 pg (28.0-33.3); Mean Corpuscular Volume 76.5 fL (83.0-100.0); Monocytes # 0.3 K/mcL (0.0-1.3); Monocytes % 4.6 %; Neutrophils # 4.4 K/mcL (1.6-8.9); Platelet Count 243 K/mcL (140-400); Red Blood Count 5.06 M/mcL (3.82-4.97); Red Cell Distribution Width 15.6 % (11.5-14.5); Segmented Neutrophils % 66.8 %
[2017-11-19 05:21] LABS: INR 1.1; Prothrombin Time 11.7 Seconds (9.4-12.1)
[2017-11-19 05:24] LABS: Activated Partial Thrombo Time 30.1 Seconds (26.0-36.0)
[2017-11-19 05:35] LABS: Alanine Aminotransferase 21 Units/L (7-52); Albumin/Globulin Ratio 1.5 (1.1-2.2); Alkaline Phosphatase 108 Units/L (34-104); Aspartate Amino Transferase 29 Units/L (13-39); BUN/Creatinine Ratio 20 (6-26); Bilirubin,Total 0.5 mg/dL (0.3-1.0); Blood Urea Nitrogen 14 mg/dL (6-20); Calcium 8.9 mg/dL (8.6-10.3); Carbon Dioxide 23 mEq/L (23-29); Chloride 108 mEq/L (98-107); Chol/HDL Ratio 4.5 (0-4.9); Cholesterol 188 mg/dL (< 200); Globulin 2.7 g/dL (2.4-3.5); Glucose 119 mg/dL (70-105); HDL Cholesterol 42 mg/dL (40-59); LDL Cholesterol,Calculated 119 mg/dL (0-99); Magnesium 1.8 mg/dL (1.6-2.6); Osmolality,Calculated 294 (280-300); Phosphorous 4.9 mg/dL (2.7-4.5); Potassium 3.5 mEq/L (3.5-5.1); Sodium 141 mEq/L (136-145); Total Protein 6.7 g/dL (6.4-8.9); Triglycerides 136 mg/dL (< 150); eGFR For African Americans > 60 (> 60); eGFR For Non-African Americans > 60 (> 60)
[2017-11-19] MEDS: 0.9 % Sodium Chloride 1,000 ML IVC SCH ×2 (07:07→19:36)
[2017-11-19] MEDS: Hyoscyamine SL 0.125 MG TAB.SUBL SL SCH ×4 (11:39→19:39)
[2017-11-19] MEDS: Insulin DETEMIR 100 UNIT/ML X5UNITS SQ SCH ×2 (11:43→20:54)
[2017-11-19] MEDS: *HR* Dabigatran 150 MG CAPSULE PO SCH ×2 (11:43→19:40)
[2017-11-19] MEDS: Aspirin Enteric Coated 81 MG Tablet PO SCH (11:43)
[2017-11-19] MEDS: *HR* HYDROcodone/Acet 5/325 mg TABLET PO PRN (11:49)
[2017-11-19] MEDS: tiZANidine 4 MG TABLET PO PRN (16:12)
--- NOTE | 2017-11-19 18:22 | Internal Med Progress Note ---
Date of Encounter: 11/19/17 Time of Encounter: 10:50 - Assessment and plan (1) TIA (transient ischemic attack) Current Visit: Yes Status: Acute Assessment and plan: Patient presented to the emergency department with sudden onset of right-sided numbness/tingling when she awakened the morning of admission. She also reports symptoms have been intermittent for 4 days prior to admission. Patient also reported she had some difficulty in swallowing and slurred speech for a while. The symptoms appear to have resolved. Barium swallow revealed swallowing mechanism grossly within normal limits without evidence of aspiration. Speech therapy recommends thin liquids and no other treatment. Carotid Dopplers show nonstenotic plaque bilaterally. Head CT is negative for any acute intracranial abnormality. Echocardiogram shows LVEF of 60%, moderate LV DD, mild eccentric appearing MR, mild TR, mild CO, no evidence of PFO. MRI brain is still pending. Continue telemetry, continue Lipitor, continue aspirin. Physical exam is essentially normal. Patient has mild facial droop, speech has returned to baseline, all extremities are strong and equal strength bilaterally. Qualifiers: Transient cerebral ischemia type: carotid artery syndrome (hemispheric) Qualified Code(s): G45.1 - Carotid artery syndrome (hemispheric) (2) Hyperlipemia Current Visit: Yes Status: Chronic Assessment and plan: Currently on 20 mg daily at bedtime. Continue. Qualifiers: Hyperlipidemia type: unspecified Qualified Code(s): E78.5 - Hyperlipidemia , unspecified (3) Diabetes mellitus, type II, insulin dependent Current Visit: Yes Status: Chronic Assessment and plan: Uncontrolled diabetes. Hemoglobin A1c is 9.1% in July. We will recheck in the morning. Continue diabetic diet, Accu-Cheks before meals and at bedtime, sliding scale insulin. (4) Obesity (BMI 30-39.9) Current Visit: Yes Status: Chronic Assessment and plan: Chronic. Continue to encourage lifestyle modifications. (5) HTN (hypertension) Current Visit: No Status: Chronic Assessment and plan: Chronic. Continue home medications. Blood pressure is well controlled. Qualifiers: Hypertension type: essential hypertension Qualified Code(s): I10 - Essential (primary) hypertension (6) DVT prophylaxis Current Visit: Yes Status: Acute Assessment and plan: Patient is on Pradaxa. - Time Spent With Patient Total time spent is greater than 50% in coordination of care (as documented) at patient's floor/unit and/or counseling patient: less than 15 minutes - Subjective Interval history: Patient was seen and assessed the bedside at 10:50 AM. Patient was agitated, states that she wants to go home, she is hungry she needs to eat. Patient is encouraged to staying continue testing. She denies any headache or blurred vision. She denies weakness or numbness and tingling in her extremities. She denies chest pain or shortness of breath. No abdominal pain, nausea, vomiting, diarrhea. - Constitutional Vitals: Temp Pulse Resp BP Pulse Ox 98.3 F 54 16 111/72 98 11/19/17 15:00 11/19/17 15:00 11/19/17 15:00 11/19/17 15:00 11/19/17 15:00 General appearance: Present: A&O X 3, pleasant, no acute distress, obese, answers questions appropriately - Head Head exam: Present: atraumatic, normal inspection, normocephalic - Eye Eye exam: Present: normal appearance, conjuntiva pink, sclera anicteric - Neck Neck exam general surgery: Present: supple, trachea midline. Absent: lymphadenopathy - Respiratory Respiratory exam: Present: CTAB. Absent: accessory muscle use, rales, respiratory distress, rhonchi, wheezes - Cardiovascular Cardiovascular exam: Present: RRR, +S1, +S2. Absent: diastolic murmur, gallop, rubs, systolic murmur - GI/Abdominal GI/Abdominal exam: Present: normal bowel sounds, soft, no peritoneal signs. Absent: distended, hepatomegaly, tenderness - Extremities Exam Extremities exam: Present: normal capillary refill, normal inspection, warm, radial pulses palpable and symmetrical. Absent: calf tenderness, cyanotic, pedal edema, tenderness - Neurological Exam Neurological exam: Present: alert, CN II-XII intact, oriented X3, no focal deficits. Absent: abnormal gait, altered, motor sensory deficit, pronater drift , facial droop, speech deficit - Skin Skin exam: Present: dry, intact, normal color, warm. Absent: rash Internal Medicine: Result - Labs CBC & Chem 7: 11/19/17 04:48 11/19/17 04:48 Labs: Short CBC 11/19/17 Range/Units 04:48 WBC 6.6 (4.3-11.1) K/mcL Hgb 12.1 (11.5-15.4) g/dL Hct 38.7 (35.3-44.9) % Plt Count 243 (140-400) K/mcL Neutrophils # 4.4 (1.6-8.9) K/mcL BMP 11/19/17 04:48 Sodium 141 Potassium 3.5 Chloride 108 H Carbon Dioxide 23 BUN 14 Creatinine 0.69 Glucose 119 H Calcium 8.9 Cardiac Enzymes 11/18/17 11/19/17 Range/Units 22:06 04:48 Troponin I < 0.03 < 0.03 (< 0.04) ng/mL Liver Function 11/19/17 Range/Units 04:48 Total Bilirubin 0.5 (0.3-1.0) mg/dL AST 29 (13-39) Units/L ALT 21 (7-52) Units/L Alkaline Phosphatase 108 H (34-104) Units/L Albumin 4.0 (3.5-5.7) g/dL - ABG Interpretation ABG results: PT/INR, D-dimer PT 11.7 Seconds (9.4-12.1) 11/19/17 04:48 - Impressions Impressions Videofluoroscopic Swallow 11/19/17 00:01 IMPRESSION: Swallowing mechanism grossly within normal limits without evidence of aspiration. Please see separate speech pathology report for full discussion of findings and recommendations. D/ / Rigoberto Felton MD / Rigoberto Felton MD Interpreting Provider: Rigoberto Felton MD Echocardiogram 11/19/17 16:16 Impressions: LVEF 60%. Moderate left ventricular diastolic dysfunction. Normal right ventricular structure and function. Mild, eccentric appearing mitral regurgitation. Mild tricuspid regurgitation. Mild pulmonic regurgitation. No pulmonary hypertension by TR gradient. No evidence of PFO with agitated saline contrast. Left Ventricular Wall Motion: Rest Echo Findings All wall segments showed normal motion. Findings: Study Quality * Technically adequate exam. ECG Findings * Normal sinus rhythm. Left Ventricle * LVEF 60%. * Normal LV chamber size, wall thickness and function. * Moderate left ventricular diastolic dysfunction. Right Ventricle * Normal right ventricular structure and function. Left Atrium * Mildly dilated left atrium. Right Atrium * Normal right atrial size. Mitral Valve * Normal mitral valve structure. * No mitral stenosis. * Mild, eccentric appearing mitral regurgitation. Aortic Valve * No aortic regurgitation. * Trileaflet aortic valve. * No aortic stenosis. Tricuspid Valve * Normal tricuspid valve structure. * Mild tricuspid regurgitation. Pulmonic Valve * Pulmonic valve is not well visualized. * No pulmonic stenosis. * Mild pulmonic regurgitation. Pulmonary Artery * Pulmonary artery not well visualized. Aorta * Normally sized aortic root. Pericardium * There is no pericardial effusion present. Interatrial Septum * No evidence of PFO with agitated saline contrast. IVC * The IVC is not well evaluated. Consult Discharge Plan - Plan Referrals: Joanne Paez MD [Primary Care Provider] -
[2017-11-19] MEDS: clonazePAM 0.5 MG TABLET PO SCH (19:40)
[2017-11-19] MEDS ORDERED: D5% in Water 1,000 ML IVC PRN (20:17)
[2017-11-19] MEDS ORDERED: *HR* Dextrose 50 % in Water (Syg) 50 ML SYRINGE IVP PRN (20:17)
[2017-11-19] MEDS ORDERED: Dextrose Gel 15 GM/37.5 ML TUBE PO PRN ×2 (20:17)
[2017-11-19] MEDS ORDERED: Insulin LISPRO 300 UNITS/3 ML VIAL SQ SCH (21:00)
[2017-11-20] MEDS: 0.9 % Sodium Chloride 1,000 ML IVC SCH (02:07)
[2017-11-20] MEDS: Insulin LISPRO 300 UNITS/3 ML VIAL SQ SCH ×2 (07:39→12:00)
[2017-11-20] MEDS: Insulin DETEMIR 100 UNIT/ML X5UNITS SQ SCH (07:45)
[2017-11-20] MEDS: tiZANidine 4 MG TABLET PO PRN (07:45)
[2017-11-20] MEDS: *HR* Dabigatran 150 MG CAPSULE PO SCH (07:45)
[2017-11-20] MEDS: Hyoscyamine SL 0.125 MG TAB.SUBL SL SCH ×2 (07:45→12:00)
[2017-11-20] MEDS: Aspirin Enteric Coated 81 MG Tablet PO SCH (07:45)
[2017-11-20 10:23] LABS: Estimated Average Glucose 258 mg/dl; Hemoglobin A1C 10.6 %
[2017-11-20 11:32] VITALS: BP 123/76
--- NOTE | 2017-11-20 13:23 | Discharge Summary ---
- NOTES TO OUTPATIENT PROVIDER Notes to Outpatient Provider: Pt was admitted with new onset slurred speech and right sided numbness and tingling. All symptoms have resolved. Pt has no new deficits and has returned to baseline. She will continue her normal medications and recommend lifestyle modifications. Date of Encounter: 11/20/17 Time of Encounter: 09:00 - Discharge Diagnosis (1) TIA (transient ischemic attack) Priority: Primary Status: Acute Assessment and Plan: All symptoms appear to have resolved. Barium swallow revealed swallowing mechanism grossly within normal limits without evidence of aspiration. Speech therapy recommends thin liquids and no other treatment. Carotid Dopplers show nonstenotic plaque bilaterally. Head CT is negative for any acute intracranial abnormality. Brain MRI is negative for acute intracranial abnormality. Echocardiogram shows LVEF of 60%, moderate LV DD, mild eccentric appearing MR, mild TR, mild OR, no evidence of PFO. Continue Lipitor and ASA after discharge. Physical exam is essentially normal. Patient has no discernible facial droop, speech has returned to baseline, all extremities are strong at her baseline. Pt has prior CVA with mild left sided weakness/deficit. She denies change in weakness and gait is steady. Qualifiers: Transient cerebral ischemia type: carotid artery syndrome (hemispheric) Qualified Code(s): G45.1 - Carotid artery syndrome (hemispheric) (2) Hyperlipemia Priority: Secondary Status: Chronic Assessment and Plan: Currently on 20 mg Lipitor qhs. Continue. Qualifiers: Hyperlipidemia type: unspecified Qualified Code(s): E78.5 - Hyperlipidemia , unspecified (3) Diabetes mellitus, type II, insulin dependent Priority: Secondary Status: Chronic Assessment and Plan: Uncontrolled diabetes. Hemoglobin A1c is 10.6%. Continue diabetic diet, increase activity level and change diet. Pt would benefit from diabetes education Continue home medications and follow closely with PCP for medication changes and continued evaluation. (4) Obesity (BMI 30-39.9) Priority: Secondary Status: Chronic Assessment and Plan: Chronic. Continue to encourage lifestyle modifications. (5) HTN (hypertension) Priority: Secondary Status: Chronic Assessment and Plan: Chronic. Well controlled .Continue home medications. Qualifiers: Hypertension type: essential hypertension Qualified Code(s): I10 - Essential (primary) hypertension (6) DVT prophylaxis Priority: Secondary Status: Acute Assessment and Plan: Patient is on Pradaxa. Continue after discharge. Hospital course: Ms. Jacome is a 51 year old female Discharge discussed with: patient, nurse - Time Spent with Patient Total time spent providing and/or coordinating discharge services: Less than 30 minutes - Discharge Medications Home Medications: Aspirin [Adult Low Dose Aspirin EC] 81 mg PO DAILY 10/26/15 [History] Etonogestrel [Nexplanon] 68 mg SQ AD 10/26/15 [History] metFORMIN [Glucophage] 1,000 mg PO BIDWM 10/26/15 [History] clonazePAM [Klonopin] 0.5 mg PO HS 03/04/17 [History] Dabigatran Etexilate Mesylate [Pradaxa] 150 mg PO BID 05/12/17 [History] Flecainide 100 mg PO BID 05/12/17 [History] Omeprazole [PriLOSEC] 40 mg PO DAILY 05/12/17 [History] Atorvastatin Calcium [Lipitor] 20 mg PO HS 06/03/17 [History] Sertraline [Zoloft] 300 mg PO DAILY 06/03/17 [History] traZODone [TraZODone] 50 - 100 mg PO HS PRN 06/03/17 [History] Lisinopril [Zestril] 5 mg PO DAILY tablet 06/20/17 [Rx] Albuterol Sulfate [Ventolin Hfa] 2 puff IH Q4H PRN 07/09/17 [History] Metoprolol [Lopressor] 50 mg PO BID 07/30/17 [History] HYDROcodone/Acet 5/325 mg [[place] 5-325 mg] 1 tab PO Q6H PRN #12 tablet 08/03/17 [Rx] Acetaminophen [Tylenol] 500 mg PO Q6HR PRN #20 tablet 09/09/17 [Rx] Amitriptyline [Elavil] 50 mg PO DAILY 11/18/17 [History] Hyoscyamine SL [Levsin Sl] 0.125 mg SL QID 11/18/17 [History] Insulin Glargine,Hum.rec.anlog [Basaglar Kwikpen U-100] 50 units SQ BID [History] Tizanidine HCl 4 mg PO BID PRN 11/18/17 [History] Allergies/Adverse Reactions: 3 Allergy/AdvReac Type Severity Reaction Status Date / Time No Known Allergies Allergy Verified 11/18/17 15:03 Date of admission: 11/18/17 15:54 Primary care physician: Joanne Paez Discharging clinician: Deysi Marcus Anticipated date of discharge: 11/20/17 - Constitutional Vitals: Temp Pulse Resp BP Pulse Ox 98.4 F 57 18 123/76 99 11/20/17 11:26 11/20/17 11:26 11/20/17 11:26 11/20/17 11:26 11/20/17 11:26 General appearance: Present: cooperative, A&O X 3, pleasant, no acute distress, obese, answers questions appropriately - Head Head exam: Present: atraumatic, normal inspection, normocephalic - Eye Eye exam: Present: normal appearance, conjuntiva pink, sclera anicteric - Neck Neck exam general surgery: Present: normal inspection, supple, trachea midline. Absent: lymphadenopathy, tenderness - Respiratory Respiratory exam: Present: CTAB. Absent: accessory muscle use, rales, respiratory distress, rhonchi, wheezes - Cardiovascular Cardiovascular exam: Present: RRR, +S1, +S2. Absent: diastolic murmur, gallop, rubs, systolic murmur - GI/Abdominal GI/Abdominal exam: Present: normal bowel sounds, soft. Absent: distended, hepatomegaly, tenderness - Extremities Exam Extremities exam: Present: normal capillary refill, normal inspection, warm, radial pulses palpable and symmetrical. Absent: calf tenderness, cyanotic, pedal edema, tenderness - Neurological Exam Neurological exam: Present: alert, oriented X3, no focal deficits. Absent: facial droop, speech deficit - Skin Skin exam: Present: dry, intact, normal color, warm. Absent: rash - Patient Status Disposition: Home, Self-Care Condition: Good Functional capacity at discharge: independent ambulation Overall status at discharge: patient is back to baseline - Discharge Instructions Follow Up With: Joanne Paez MD [Primary Care Provider] - Additional Instructions: Please continue your ASA, Pradaxa, and Lipitor daily. Your diabetes is uncontrolled, you would benefit from diabetes education. Have your PCP send you. You need to take your medications as directed and eat a strict 1800 calorie ADA diet. Increase the amount of exercise that you get and stop smoking if you smoke. REturn to the ER as needed for any other problems or concerns, or if your symptoms return or worsen. Take your other medications as directed and return to your normal activities as tolerated. Follow up with your PCP in the next 5-7 days for a recheck and to be released to go back to work and to drive your car. - Diet and Activity Activity: increase activity as tolerated Diet: diabetic diet, low fat, low cholesterol
== END 2017-11-20 14:23 | disposition home or self-care (01) | DRG 47 ==
LOC: EMEROO 10:32 → 3BNU 10:32
PROVIDERS: ADMIT Internal Medicine; ATTEND Internal Medicine

== ENCOUNTER 2018-01-04 10:41 | Observation (INO) ==
[2018-01-04] MEDS ORDERED: Aspirin 81 MG TAB.CHEW PO ONE (11:07)
[2018-01-04] MEDS ORDERED: Nitroglycerin 0.4 MG TAB.SUBL SL ONE (11:07)
--- NOTE | 2018-01-04 11:10 | Emergency Department Note ---
Disposition Clinical Impression: Abscess Chest pain Qualifiers: Chest pain type: unspecified Qualified Code(s): R07.9 - Chest pain, unspecified Disposition: Admitted As Inpatient Condition: Good Time of Disposition: 14:18 General Adult HPI - General Chief complaint: ED Chest Pain Stated complaint: chest pain, knot on neck Time Seen by Provider: 01/04/18 10:45 Source: patient Limitations: no limitations Nursing Notes Reviewed: Yes Vital Signs Reviewed: Yes - History of Present Illness HPI Narrative: Female patient woke up this morning with chest pain. She states it woke her from sleep. It radiates to her back. Also complaining of a tingling sensation to the right side of her face. She states she has felt this several times before and has been worked up for this with no findings. She also reports shortness of breath associated with the chest pain. Has taken one nitroglycerin with no relief. Also reporting a cellulitic area to the right posterior part of her head. No drainage. Came up A week ago. Also lesions of the left arm became up week ago. Pain Scale: 10 - Related Data Home Medications Medication Instructions Recorded Confirmed Aspirin [Adult Low Dose Aspirin EC] 81 mg PO DAILY 10/26/15 11/18/17 Etonogestrel [Nexplanon] 68 mg SQ AD 10/26/15 11/18/17 metFORMIN [Glucophage] 1,000 mg PO BIDWM 10/26/15 11/18/17 clonazePAM [Klonopin] 0.5 mg PO HS 03/04/17 11/18/17 Dabigatran Etexilate Mesylate 150 mg PO BID 05/12/17 11/18/17 [Pradaxa] Flecainide 100 mg PO BID 05/12/17 11/18/17 Omeprazole [PriLOSEC] 40 mg PO DAILY 05/12/17 11/18/17 Atorvastatin Calcium [Lipitor] 20 mg PO HS 06/03/17 11/18/17 Sertraline [Zoloft] 300 mg PO DAILY 06/03/17 11/18/17 traZODone [TraZODone] 50 - 100 mg PO HS PRN 06/03/17 11/18/17 Albuterol Sulfate [Ventolin Hfa] 2 puff IH Q4H PRN 07/09/17 11/18/17 Metoprolol [Lopressor] 50 mg PO BID 07/30/17 11/18/17 Amitriptyline [Elavil] 50 mg PO DAILY 11/18/17 11/18/17 Hyoscyamine SL [Levsin Sl] 0.125 mg SL QID 11/18/17 11/18/17 Insulin Glargine,Hum.rec.anlog 50 units SQ BID 11/18/17 11/18/17 [Basaglar Kwikpen U-100] Tizanidine HCl 4 mg PO BID PRN 11/18/17 11/18/17 Previous Rx's Medication Instructions Recorded Lisinopril [Zestril] 5 mg PO DAILY tablet 06/20/17 HYDROcodone/Acet 5/325 mg [[place] 1 tab PO Q6H PRN #12 tablet 08/03/17 5-325 mg] Acetaminophen [Tylenol] 500 mg PO Q6HR PRN #20 tablet 09/09/17 Clindamycin [Cleocin] 150 mg PO Q6HR #40 capsule 12/31/17 OxyCODONE/APAP 5/325 [Percocet 1 each PO Q6HR PRN 3 Days #10 12/31/17 5/325 MG] tablet Allergies Allergy/AdvReac Type Severity Reaction Status Date / Time No Known Allergies Allergy Verified 01/04/18 10:43 All systems ED: reviewed and negative except as stated. Constitutional: Reports: fever (one episode of 102) ENT ED: Reports: dysphagia (She has had a swallow study that was negative. She states that she only has trouble swallowing whenever it solid food.). Denies: throat pain Cardiovascular: Reports: chest pain. Denies: syncope Respiratory: Reports: dyspnea. Denies: cough Gastrointestinal: Reports: abdominal pain. Denies: nausea, vomiting, diarrhea, hematemesis, melena, hematochezia Musculoskeletal: Reports: neck pain (To the lesion on the right side of her neck.). Denies: back pain Integumentary: Reports: lesions (Swelling to the right side of her neck. Was diagnosed with cellulitis and started on 2 antibiotics these were Keflex and Bactrim. Patient states she has been taking these for about a week with no resolution.). Denies: rash Neurological: Reports: other (Tingling sensation to the right side of her face.) . Denies: headache Past Medical History - Past Medical History Attestation: Yes The following information was validated with the patient. Source: patient Medical history: Reports: atrial fibrillation, CHF, COPD, coronary artery disease, CVA, diabetes, hyperlipidemia, hypertension, myocardial infarction, renal disease, TIA, other Surgical history: Reports: , cholecystectomy Psychiatric history: Reports: anxiety, depression, prior suicide attempt, previous psychiatric hospitalization STOCK WETTER history: Reports: no STOCK WETTER history - Social History Smoking Status: Never smoker Smokeless Tobacco Status: No Alcohol use: Reports: none Drug use: Reports: none Physical Exam - General Limitations: no limitations General appearance: alert, in no apparent distress - Head Head exam: atraumatic, normocephalic, normal inspection - Eye Eye exam: Present: normal appearance, PERRL, EOMI - ENT ENT exam: normal exam, normal oropharynx, mucous membranes moist - Neck Neck exam: Present: normal inspection, full ROM, trachea midline - Chest Chest inspection: Present: normal inspection, symmetric chest wall rise - Respiratory Respiratory exam: Present: normal lung sounds bilaterally. Absent: respiratory distress, accessory muscle use Course Course Narrative: Male patient presenting to the emergency department complaining of chest pain that woke her up from sleep this morning around 3:30. She did take one nitroglycerin this did not help. She states it radiates to her back on the left side. She reports some shortness of breath associated with this. She is also complaining that she has an abscess to the right posterior part of her head. She is on antibiotics and has been on them for approximately a week with no relief. She also reports multiple lesions to her left arm. She states that they came up around the same time as abscess to the back of her neck. Her lung sounds are clear heart tones are normal abdomen is soft nontender. She denies any nausea or vomiting. She does report abdominal pain whenever I palpate. She states the pain is everywhere. She does have a erythematous raised lesion to the posterior right occiput that has a fluctuant feeling to it. We will ultrasound this. We will get a chest pain workup on patient at this time. She states she does take one baby aspirin a day. We will also provide her with more nitroglycerin to attempt to relieve the chest pain. She appears comfortable while resting in bed at this time. The lesions to her left arm are multiple and appear to be healing appropriately. They do not appear infected. - Reevaluation(s) Reevaluation #1: We did attempt to I&D the patient's abscess to the right neck area. There was a pocket noted but no purulence. Minimal blood was relief from this area. The pocket was explored with a Q-tip. No jewell were noted. She did appear to have an abscess on the ultrasound. We will place patient on vancomycin. She states that she has been positive for MRSA skin infections before. We will get patient to the hospital for her ongoing chest pain as well as the abscess as it is not correcting with outpatient management. Reevaluation #2: Patient complaining of some nausea. She states she did get some pain relief with the fentanyl. She states it sounds to an ache now from a 9. However she is resting comfortably playing on her phone. We will provide her with Zofran. Time: 13:08 - Consultations Consultation #1: Dr Brennan accepted Pt in stable condition. Time: 13:24 Vital Signs Temperature 98.4 F 01/04/18 10:42 Pulse Rate 99 01/04/18 10:42 Respiratory Rate 18 01/04/18 10:42 Blood Pressure 154/96 01/04/18 10:42 O2 Sat by Pulse Oximetry 98 01/04/18 10:42 Temperature 98.4 F 01/04/18 10:48 Pulse Rate 97 01/04/18 13:33 Respiratory Rate 15 01/04/18 13:33 Blood Pressure 162/106 01/04/18 13:33 O2 Sat by Pulse Oximetry 99 01/04/18 13:33 Oxygen Delivery Oxygen Delivery Room Air Medical Decision Making - Medical Records Medical records reviewed: Yes I reviewed the patient's medical records. - Lab Data Lab results reviewed: Yes I reviewed the patient's lab results. Result diagrams: 01/04/18 11:28 01/04/18 11:28 Lab Results 01/04/18 01/04/18 Range/Units 11:28 11:28 WBC 7.0 (4.3-11.1) K/mcL RBC 4.47 (3.82-4.97) M/mcL Hgb 11.1 L (11.5-15.4) g/dL Hct 34.5 L (35.3-44.9) % MCV 77.2 L (83.0-100.0) fL MCH 24.8 L (28.0-33.3) pg MCHC 32.2 (31.6-35.5) g/dL RDW 15.3 H (11.5-14.5) % Plt Count 229 (140-400) K/mcL MPV 10.2 (9.4-12.4) fL Immature Gran % 0.6 (0-4) % Seg Neutrophils % 73.2 % Lymphocytes % 19.3 % Monocytes % 3.4 % Eosinophils % 3.1 % Basophils % 0.4 % Neutrophils # 5.1 (1.6-8.9) K/mcL Lymphocytes # 1.4 (0.6-4.6) K/mcL Monocytes # 0.2 (0.0-1.3) K/mcL Eosinophils # 0.2 (0.0-0.6) K/mcL Basophils # 0.0 (0.0-0.2) K/mcL Sodium 134 L (136-145) mEq/L Potassium 3.7 (3.5-5.1) mEq/L Chloride 103 (98-107) mEq/L Carbon Dioxide 23 (23-29) mEq/L BUN 12 (6-20) mg/dL Creatinine 0.53 L (0.60-1.20) mg/dL Est GFR ( Amer) > 60 (> 60) Est GFR (Non-Af Amer) > 60 (> 60) BUN/Creatinine Ratio 23 (6-26) Glucose 313 H (70-105) mg/dL Calculated Osmolality 290 (280-300) Calcium 9.4 (8.6-10.3) mg/dL Troponin I < 0.03 (< 0.04) ng/mL - Radiology Data Radiology results reviewed: Yes I reviewed the patient's radiology results. Chest X-Ray 01/04/18 11:07 IMPRESSION: No acute cardiopulmonary process or significant interval change. D/ / 01/04/2018 12:14:55 Yasir Murray MD / tony Interpreting Provider: Yasir Murray MD - EKG Data EKG #1 EKG attestation: Yes I reviewed and interpreted this EKG. EKG results narrative: Sinus rhythm at a rate 89. AK interval is 167. QRS duration is 116. QT is 385. QTC is 432. No signs of acute ischemia. No significant change from previous EKG dated 12/01/2017.
[2018-01-04 11:38] LABS: Basophils % 0.4 %; Eosinophils # 0.2 K/mcL (0.0-0.6); Eosinophils % 3.1 %; Hematocrit 34.5 % (35.3-44.9); Hemoglobin 11.1 g/dL (11.5-15.4); Immature Granulocytes % 0.6 % (0-4); Lymphocytes # 1.4 K/mcL (0.6-4.6); Lymphocytes % 19.3 %; Mean Corpuscular HGB Conc 32.2 g/dL (31.6-35.5); Mean Corpuscular Hemoglobin 24.8 pg (28.0-33.3); Mean Corpuscular Volume 77.2 fL (83.0-100.0); Mean Platelet Volume 10.2 fL (9.4-12.4); Monocytes # 0.2 K/mcL (0.0-1.3); Monocytes % 3.4 %; Neutrophils # 5.1 K/mcL (1.6-8.9); Platelet Count 229 K/mcL (140-400); Red Blood Count 4.47 M/mcL (3.82-4.97); Red Cell Distribution Width 15.3 % (11.5-14.5); Segmented Neutrophils % 73.2 %
[2018-01-04] MEDS ORDERED: Lidocaine/EPI 1:100k 1% 30 ML VIAL INFILT ONE (11:42)
--- NOTE | 2018-01-04 11:42 | Emergency Department Note ---
START Narrative - START START: I examined this patient and my medical decision-making was reviewed with the Resident Physician. I agree with the documented findings, disposition and treatment plan as described except to the extent set forth below. 52-year-old female presents emergency room for chest pain and an abscess to her neck. Her chest pain is been bothering her since early this morning around 4 AM. States she does not feel well. She is a known diabetic with multiple risk factors for coronary disease. She has unstable angina at this time. Patient will be worked up from an ACS standpoint and will need to be admitted for further cardiac evaluation. The abscess on her neck is in the right posterior portion of the neck consistent with a folliculitis that is now spread into an abscess. Patient was placed on antibiotics after local I and D.
[2018-01-04 11:58] LABS: BUN/Creatinine Ratio 23 (6-26); Blood Urea Nitrogen 12 mg/dL (6-20); Calcium 9.4 mg/dL (8.6-10.3); Carbon Dioxide 23 mEq/L (23-29); Chloride 103 mEq/L (98-107); Glucose 313 mg/dL (70-105); Osmolality,Calculated 290 (280-300); Potassium 3.7 mEq/L (3.5-5.1); Sodium 134 mEq/L (136-145); eGFR For African Americans > 60 (> 60); eGFR For Non-African Americans > 60 (> 60)
[2018-01-04 11:59] LABS: Troponin I < 0.03 ng/mL (< 0.04)
[2018-01-04] MEDS ORDERED: *HR* FentaNYL (PF) 100 MCG/2 ML VIAL IVP ONE (12:33)
[2018-01-04] MEDS ORDERED: Ondansetron 4 MG/2 ML VIAL IVP ONE (13:15)
[2018-01-04 13:38] VITALS: BP 162/106
--- NOTE | 2018-01-04 16:59 | Internal Med History&Physical ---
Date of Encounter: 01/04/18 Time of Encounter: 16:47 Internal Medicine - H&P: HPI Admitted From: Emergency Dept Plans for Post Hospital Care: Home History of present illness: Ms. Jacome is a 52 year old female with past medical history obesity, DM-II, and recurrent abscess. Pt states she woke up around 4:30am with CP, sharp in nature 02/21. Reports pain radiating to her back an was associated with SOB. States she gets night sweats. Pt also presented because of boil posterior right neck that developed into pain , was red, swollen, and painful. Neck abscess I and D in ED and cultures sent. Pt denies fever but admits to chills. Denies N/V/D. Reports prior hx of MRSA. In ED Troponin <0.03, WBC 7.0, hgb 11.1, hct 34 .5, plt 229. Na 134, K 3.7, BUN 12, Cr 0.53, glucose 313. Chest x ray IMPRESSION: No acute cardiopulmonary process or significant interval change. Past Med Surg Social Fam HX - Past Medical History Medical history: atrial fibrillation, CHF, COPD, coronary artery disease, CVA, diabetes, hyperlipidemia, hypertension, myocardial infarction, renal disease, TIA, other Additional medical history: c-diff, cervialgia, Loop recorder, cervico- occipital neurolgia-cerebral hemorrhage,. anemia, spasmadic torticollis. ANTOINETTE. respiratory failure. dydfunctional uterine bleed, obesity, conversion disorder Psychiatric history: anxiety, depression, prior suicide attempt, previous psychiatric hospitalization - Past Surgical History Surgical History: , cholecystectomy Additional surgical history: loop recorder and cardiac ablasion - Social History Smoking Status: Never smoker Smokeless Tobacco Status: No Alcohol use: none Drug use: none - Family History Mother Living Status: Hx Family Cardiac Disorders: Yes Hx Family Respiratory Disorders: Yes (copd) Hx Family Cancer: Yes (lung cancer) Hx Family Endocrine Disorder: Yes (DM type II) Father Adopted: No Family Member Ethnicity: Non- Living Status: Hx Family Cardiac Disorders: Yes Hx Family Respiratory Disorders: Yes Hx Family Cancer: Yes (LUNG) Hx Family GI Disorders: No Hx Family Endocrine Disorder: Yes (DM) Hx Family Neuromuscular Disorders: No Hx Family Neurologic Disorders: No Hx Family HEENT Disorders: No Hx Family Autoimmune Disorders: No Internal Medicine - H&P: Meds Aspirin [Adult Low Dose Aspirin EC] 81 mg PO DAILY 10/26/15 [History] Etonogestrel [Nexplanon] 68 mg SQ AD 10/26/15 [History] metFORMIN [Glucophage] 1,000 mg PO BIDWM 10/26/15 [History] clonazePAM [Klonopin] 0.5 mg PO HS 03/04/17 [History] Dabigatran Etexilate Mesylate [Pradaxa] 150 mg PO BID 05/12/17 [History] Flecainide 100 mg PO BID 05/12/17 [History] Omeprazole [PriLOSEC] 40 mg PO DAILY 05/12/17 [History] Atorvastatin Calcium [Lipitor] 20 mg PO HS 06/03/17 [History] Sertraline [Zoloft] 300 mg PO DAILY 06/03/17 [History] traZODone [TraZODone] 50 - 100 mg PO HS PRN 06/03/17 [History] Lisinopril [Zestril] 5 mg PO DAILY tablet 06/20/17 [Rx] Albuterol Sulfate [Ventolin Hfa] 2 puff IH Q4H PRN 07/09/17 [History] Metoprolol [Lopressor] 50 mg PO BID 07/30/17 [History] HYDROcodone/Acet 5/325 mg [[place] 5-325 mg] 1 tab PO Q6H PRN #12 tablet 08/03/17 [Rx] Acetaminophen [Tylenol] 500 mg PO Q6HR PRN #20 tablet 09/09/17 [Rx] Amitriptyline [Elavil] 50 mg PO DAILY 11/18/17 [History] Hyoscyamine SL [Levsin Sl] 0.125 mg SL QID 11/18/17 [History] Insulin Glargine,Hum.rec.anlog [Basaglar Kwikpen U-100] 50 units SQ BID [History] Tizanidine HCl 4 mg PO BID PRN 11/18/17 [History] Clindamycin [Cleocin] 150 mg PO Q6HR #40 capsule 12/31/17 [Rx] OxyCODONE/APAP 5/325 [Percocet 5/325 MG] 1 each PO Q6HR PRN 3 Days #10 tablet [Rx] 3 Allergy/AdvReac Type Severity Reaction Status Date / Time No Known Allergies Allergy Verified 01/04/18 10:43 All Systems PM: A 10-system review of systems was performed and is negative for pertinent findings except as documented above in the HPI. - Constitutional Constitutional: no chills, no fever(s), no night sweats - EENT Eyes: no change in vision, no discharge, no pain, no photophobia Ears: no ear discharge, no ear pain, no tinnitus Nose, mouth and throat: no dysphagia, no nasal discharge, no neck pain, no sore throat - Cardiovascular Cardiovascular ROS IM: no chest pain, no diaphoresis, no dyspnea, no lightheadedness, no palpitations, no syncope - Respiratory Respiratory: no cough, no dyspnea, no wheezing, no excessive phlegm production - Gastrointestinal Gastrointestinal: no abdominal pain, no diarrhea, no hematemesis, no hematochezia, no melena, no nausea, no vomiting - Genitourinary Genitourinary: no change in urinary stream, no dysuria, no flank pain, no hematuria - Musculoskeletal Musculoskeletal ROS IM: no numbness, no tingling - Integumentary Integumentary IM: no rash, no unusual bruising - Neurological Neurological ROS: no confusion, no convulsions, no focal weakness, no numbness, no tingling, no tremor(s) - Hematologic/Lymphatic Hematologic/Lymphatic: no easy bruising - Constitutional Vitals: Temp Pulse Resp BP Pulse Ox 98.4 F 97 15 162/106 99 01/04/18 10:48 01/04/18 13:33 01/04/18 13:33 01/04/18 13:33 01/04/18 13:33 General appearance: Present: A&O X 3, no acute distress - Head Head exam: Present: atraumatic, normocephalic - Eye Eye exam: Present: PERRL, conjuntiva pink, sclera anicteric Pupils: Present: PERRL - Neck Neck exam general surgery: Present: supple, trachea midline. Absent: lymphadenopathy - Respiratory Respiratory exam: Present: CTAB. Absent: accessory muscle use, rales, rhonchi, wheezes - Cardiovascular Cardiovascular exam: Present: RRR, +S1, +S2. Absent: diastolic murmur, gallop, rubs, systolic murmur - GI/Abdominal GI/Abdominal exam: Present: normal bowel sounds, soft, no peritoneal signs. Absent: distended, tenderness - Extremities Exam Extremities exam: Present: warm, radial pulses palpable and symmetrical. Absent : calf tenderness, cyanotic, pedal edema - Neurological Exam Neurological exam: Present: CN II-XII intact, oriented X3, no focal deficits. Absent: pronater drift, facial droop, speech deficit - Skin Skin exam: Present: dry, intact Internal Med - H&P Results - Labs CBC & Chem 7: 01/04/18 11:28 01/04/18 11:28 - Assessment and plan (1) Chest pain, rule out acute myocardial infarction Status: Acute Assessment and plan: cycle troponin, ASA daily, nitro prn. (2) Diabetes mellitus, type II, insulin dependent Status: Chronic Assessment and plan: Resume home insulin and add SSI. Will adjust as deemed necessary - Time Spent With Patient Total time spent is greater than 50% in coordination of care (as documented) at patient's floor/unit and/or counseling patient: 25 - 35 minutes
--- NOTE | 2018-01-04 17:31 | Discharge Summary ---
- NOTES TO OUTPATIENT PROVIDER Notes to Outpatient Provider: PCP in one week Date of Encounter: 01/04/18 Time of Encounter: 17:29 - Discharge Diagnosis (1) Chest pain, rule out acute myocardial infarction Priority: Primary Status: Acute Assessment and Plan: Pt left AMA (2) Diabetes mellitus, type II, insulin dependent Priority: Secondary Status: Chronic Assessment and Plan: Resume insulin. Pt left AMA Hospital course: Ms. Jacome is a 52 year old female with past medical history obesity, DM-II, and recurrent abscess. Pt states she woke up around 4:30am with CP, sharp in nature 02/21. Reports pain radiating to her back an was associated with SOB. States she gets night sweats. Pt also presented because of boil posterior right neck that developed into pain , was red, swollen, and painful. Neck abscess I and D in ED and cultures sent. Pt denies fever but admits to chills. Denies N/V/D. Reports prior hx of MRSA. Patient left AMA, she stated to nurse that she had an emergency and just left. - Time Spent with Patient Total time spent providing and/or coordinating discharge services: Less than 30 minutes - Discharge Medications Home Medications: Aspirin [Adult Low Dose Aspirin EC] 81 mg PO DAILY 10/26/15 [History] Etonogestrel [Nexplanon] 68 mg SQ AD 10/26/15 [History] metFORMIN [Glucophage] 1,000 mg PO BIDWM 10/26/15 [History] clonazePAM [Klonopin] 0.5 mg PO HS 03/04/17 [History] Dabigatran Etexilate Mesylate [Pradaxa] 150 mg PO BID 05/12/17 [History] Flecainide 100 mg PO BID 05/12/17 [History] Omeprazole [PriLOSEC] 40 mg PO DAILY 05/12/17 [History] Atorvastatin Calcium [Lipitor] 20 mg PO HS 06/03/17 [History] Sertraline [Zoloft] 300 mg PO DAILY 06/03/17 [History] traZODone [TraZODone] 50 - 100 mg PO HS PRN 06/03/17 [History] Lisinopril [Zestril] 5 mg PO DAILY tablet 06/20/17 [Rx] Albuterol Sulfate [Ventolin Hfa] 2 puff IH Q4H PRN 07/09/17 [History] Metoprolol [Lopressor] 50 mg PO BID 07/30/17 [History] HYDROcodone/Acet 5/325 mg [[place] 5-325 mg] 1 tab PO Q6H PRN #12 tablet 08/03/17 [Rx] Acetaminophen [Tylenol] 500 mg PO Q6HR PRN #20 tablet 09/09/17 [Rx] Amitriptyline [Elavil] 50 mg PO DAILY 11/18/17 [History] Hyoscyamine SL [Levsin Sl] 0.125 mg SL QID 11/18/17 [History] Insulin Glargine,Hum.rec.anlog [Basaglar Kwikpen U-100] 50 units SQ BID [History] Tizanidine HCl 4 mg PO BID PRN 11/18/17 [History] Clindamycin [Cleocin] 150 mg PO Q6HR #40 capsule 12/31/17 [Rx] OxyCODONE/APAP 5/325 [Percocet 5/325 MG] 1 each PO Q6HR PRN 3 Days #10 tablet [Rx] Allergies/Adverse Reactions: 3 Allergy/AdvReac Type Severity Reaction Status Date / Time No Known Allergies Allergy Verified 01/04/18 10:43 Date of admission: 01/04/18 13:38 Primary care physician: Joanne Paez - Constitutional Vitals: Temp Pulse Resp BP Pulse Ox 98.4 F 97 15 162/106 99 01/04/18 10:48 01/04/18 13:33 01/04/18 13:33 01/04/18 13:33 01/04/18 13:33 General appearance: Present: A&O X 3, no acute distress - Head Head exam: Present: atraumatic, normocephalic - Eye Eye exam: Present: PERRL, conjuntiva pink, sclera anicteric Pupils: Present: PERRL - Neck Neck exam general surgery: Present: supple, trachea midline. Absent: lymphadenopathy - Respiratory Respiratory exam: Present: CTAB. Absent: accessory muscle use, rales, rhonchi, wheezes - Cardiovascular Cardiovascular exam: Present: RRR, +S1, +S2. Absent: diastolic murmur, gallop, rubs, systolic murmur - GI/Abdominal GI/Abdominal exam: Present: normal bowel sounds, soft, no peritoneal signs. Absent: distended, tenderness - Extremities Exam Extremities exam: Present: warm, radial pulses palpable and symmetrical. Absent : calf tenderness, cyanotic, pedal edema - Neurological Exam Neurological exam: Present: CN II-XII intact, oriented X3, no focal deficits. Absent: pronater drift, facial droop, speech deficit - Skin Skin exam: Present: dry, intact Additional comments: R neck abscess, erythema, painful to touch. - Patient Status Disposition: Left Against Medical Advice Condition: Fair Overall status at discharge: other - Discharge Instructions Follow Up With: Joanne Paez MD [Primary Care Provider] - - Diet and Activity Activity: increase activity as tolerated Diet: diabetic diet
--- NOTE | 2018-01-07 16:39 | Electrocardiograph Report ---
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
== END 2018-01-04 16:42 | disposition left against medical advice (07) ==
LOC: 3BNU 10:41 → EMEROO 10:41 → 3BNU 14:11
PROVIDERS: ADMIT Hospitalist; ATTEND Hospitalist

== ENCOUNTER 2018-10-16 04:24 | Observation (INO) ==
[2018-10-16] MEDS ORDERED: Ketorolac 30 MG/ML VIAL IVP ONE (05:25)
[2018-10-16] MEDS ORDERED: Hyoscyamine 0.5 MG/ML MLS IVP ONE (05:26)
[2018-10-16 05:27] LABS: Basophils % 0.4 %; Eosinophils # 0.1 K/mcL (0.0-0.6); Eosinophils % 1.6 %; Hemoglobin 12.2 g/dL (11.5-15.4); Immature Granulocytes % 0.4 % (0-4); Lymphocytes # 1.5 K/mcL (0.6-4.6); Lymphocytes % 22.2 %; Mean Corpuscular Volume 78.7 fL (83.0-100.0); Mean Platelet Volume 10.3 fL (9.4-12.4); Monocytes # 0.2 K/mcL (0.0-1.3); Monocytes % 3.5 %; Platelet Count 204 K/mcL (140-400); Red Cell Distribution Width 15.5 % (11.5-14.5); Segmented Neutrophils % 71.9 %
--- NOTE | 2018-10-16 05:38 | Emergency Department Note ---
Disposition Clinical Impression: Hyperglycemia Abdominal pain Qualifiers: Abdominal location: unspecified location Qualified Code(s): R10.9 - Unspecified abdominal pain Disposition: Still a Patient Condition: Good Referrals: Joanne Paez MD [Primary Care Provider] - Forms: ED Satisfaction Letter, Work/School Release Time of Disposition: 06:23 Abdominal Pain HPI - General Chief Complaint: ED Abdominal Pain Stated Complaint: left side Time Seen by Provider: 10/16/18 04:45 Source: patient, EMS Nursing Notes Reviewed: Yes Vital Signs Reviewed: Yes - History of Present Illness Pt Subjective Complaint: abdominal pain 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 Consistency: constant Location: diffuse Pain Scale: 10 Quality: cannot describe Radiation: L flank Improves with: nothing Worsens with: movement Context: other (awoke from sleep) Associated symptoms: Reports: nausea, vomiting Treatments prior to arrival: other (arrives via EMS) - Related Data Home Medications Medication Instructions Recorded Confirmed Aspirin [Adult Low Dose Aspirin EC] 81 mg PO DAILY 10/26/15 01/04/18 Etonogestrel [Nexplanon] 68 mg SQ AD 10/26/15 01/04/18 metFORMIN [Glucophage] 1,000 mg PO BIDWM 10/26/15 01/04/18 clonazePAM [Klonopin] 0.5 mg PO HS 03/04/17 01/04/18 Dabigatran Etexilate Mesylate 150 mg PO BID 05/12/17 01/04/18 [Pradaxa] Flecainide 100 mg PO BID 05/12/17 01/04/18 Omeprazole [PriLOSEC] 40 mg PO DAILY 05/12/17 01/04/18 Atorvastatin Calcium [Lipitor] 20 mg PO HS 06/03/17 01/04/18 Sertraline [Zoloft] 300 mg PO DAILY 06/03/17 01/04/18 traZODone [TraZODone] 50 - 100 mg PO HS PRN 06/03/17 01/04/18 Albuterol Sulfate [Ventolin Hfa] 2 puff IH Q4H PRN 07/09/17 01/04/18 Metoprolol [Lopressor] 50 mg PO BID 07/30/17 01/04/18 Amitriptyline [Elavil] 50 mg PO DAILY 11/18/17 01/04/18 Hyoscyamine SL [Levsin Sl] 0.125 mg SL QID 11/18/17 01/04/18 Insulin Glargine,Hum.rec.anlog 50 units SQ BID 11/18/17 01/04/18 [Basaglishmael Maceypen U-100] Tizanidine HCl 4 mg PO BID PRN 11/18/17 01/04/18 Previous Rx's Medication Instructions Recorded Lisinopril [Zestril] 5 mg PO DAILY tablet 06/20/17 HYDROcodone/Acet 5/325 mg [[place] 1 tab PO Q6H PRN #12 tablet 08/03/17 5-325 mg] Acetaminophen [Tylenol] 500 mg PO Q6HR PRN #20 tablet 09/09/17 Clindamycin [Cleocin] 150 mg PO Q6HR #40 capsule 12/31/17 OxyCODONE/APAP 5/325 [Percocet 1 each PO Q6HR PRN 3 Days #10 12/31/17 5/325 MG] tablet Allergies Allergy/AdvReac Type Severity Reaction Status Date / Time No Known Allergies Allergy Verified 01/04/18 10:43 All systems ED: reviewed and negative except as stated. Review of Systems: As Per HPI Constitutional: Reports: weakness (LLE (chronic)) ENT ED: Denies: throat pain Cardiovascular: Denies: chest pain Respiratory: Denies: dyspnea Gastrointestinal: Reports: as per HPI Musculoskeletal: Denies: back pain Integumentary: Denies: rash Neurological: Denies: headache Psychiatric: Denies: suicidal thoughts Hematological/Lymphatic: Denies: easy bleeding Allergic/Immunologic: Denies: facial swelling Abdominal Pain PMH - Past Medical History Medical history: Reports: atrial fibrillation, CHF, COPD, coronary artery di sease, CVA, diabetes, hyperlipidemia, hypertension, myocardial infarction, renal disease, TIA, other Female Surgical History: Reports: , cholecystectomy, other 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 Absent: conjunctival injection - ENT ENT exam: normal oropharynx - Neck Neck exam: Present: full ROM - Chest Chest inspection: Present: normal inspection, symmetric chest wall rise - Respiratory Respiratory exam: Present: normal lung sounds bilaterally. Absent: respiratory distress - Cardiovascular Cardiovascular exam: Present: regular rate, normal rhythm - Abdominal Exam Abdominal exam: Present: soft, tenderness - Extremities Exam Extremities exam: Present: normal inspection, full ROM, normal capillary refill - Back Exam Back exam: Present: full ROM, CVA tenderness (L) - Neurological Exam Neurological exam: Present: alert - Psychiatric Psychiatric exam: Present: normal affect, normal mood - Skin Skin exam: Present: warm, dry, intact, normal color. Absent: rash, cyanosis, diaphoresis Course Course Narrative: 52-year-old female diabetic arrives via squad with complaint of abdominal pain. She states it woke her from sleep and is accompanied with nausea and vomiting. Elevated BP, otherwise vitals wnl. She is difficult to obtain a clear history as she appears to be in pain and is very anxious. She does describe pain, and relates a history of previous ear infections. My examination patient is alert and answers questions appropriately. She is anxious in appearance. She is unable to tell me specifically what her pain feels like but she does indicate that is on the lower side, but she has worsening pain with palpation to all 4 quadrants. She does seem to have some left-sided flank pain as well. She is able to ambulate without difficulty. Lungs clear to auscultation. Vitals within normal limits. Workup initiated. Analgesics ordered. - Reevaluation(s) Reevaluation #1: Patient pain improved after Toradol. She does tell me that the pain had woke her from sleep. She feels that it may be an infection. She does mention that she feels her DM is not controlled. She is thirsty. She mentions increased frequency of urination but denies dysuria. Patient's blood glucose came back elevated over 717. Osmalilty 313. Lactic 2.7 . Potassium WNL. UA still pending. I have ordered a VBG, and serum ketones. Fluids are running. Additionally I discussed patient with Dr. Porter, who agreed for CT abdomen and pelvis. At this time it seemed to my shift, care of this patient will be transferred over Viktor Milton CNP who will handle further evaluation and disposition of this patient. I've discussed patient with Viktor. Please see her documentation for details. Time: 06:00 Vital Signs Temperature 97.8 F 10/16/18 04:38 Pulse Rate 88 10/16/18 04:38 Respiratory Rate 18 10/16/18 04:38 Blood Pressure 184/88 10/16/18 04:38 O2 Sat by Pulse Oximetry 100 10/16/18 04:38 Temperature 97.8 F 10/16/18 04:38 Pulse Rate 88 10/16/18 04:38 Respiratory Rate 18 10/16/18 04:38 Blood Pressure 184/88 10/16/18 04:38 O2 Sat by Pulse Oximetry 100 10/16/18 04:38 Oxygen Delivery Oxygen Delivery Room Air Abdominal Pain - Lab Data Result diagrams: 10/16/18 05:07 10/16/18 05:07 Lab Results 10/16/18 10/16/18 10/16/18 Range/Units 05:07 05:07 05:07 WBC 6.9 (4.3-11.1) K/mcL RBC 4.70 (3.82-4.97) M/mcL Hgb 12.2 (11.5-15.4) g/dL Hct 37.0 (35.3-44.9) % MCV 78.7 L (83.0-100.0) fL MCH 26.0 L (28.0-33.3) pg MCHC 33.0 (31.6-35.5) g/dL RDW 15.5 H (11.5-14.5) % Plt Count 204 (140-400) K/mcL MPV 10.3 (9.4-12.4) fL Immature Gran % 0.4 (0-4) % Seg Neutrophils % 71.9 % Lymphocytes % 22.2 % Monocytes % 3.5 % Eosinophils % 1.6 % Basophils % 0.4 % Neutrophils # 5.0 (1.6-8.9) K/mcL Lymphocytes # 1.5 (0.6-4.6) K/mcL Monocytes # 0.2 (0.0-1.3) K/mcL Eosinophils # 0.1 (0.0-0.6) K/mcL Basophils # 0.0 (0.0-0.2) K/mcL Sodium 134 L (136-145) mEq/L Potassium 3.9 (3.5-5.1) mEq/L Chloride 100 (98-107) mEq/L Carbon Dioxide 19 L (23-29) mEq/L BUN 15 (6-20) mg/dL Creatinine 0.85 (0.60-1.20) mg/dL Est GFR ( Amer) > 60 (> 60) Est GFR (Non-Af Amer) > 60 (> 60) BUN/Creatinine Ratio 18 (6-26) Glucose 716 H* (70-105) mg/dL Calculated Osmolality 313 H (280-300) Lactic Acid 2.8 H (0.5-2.2) mmol/L Calcium 9.7 (8.6-10.3) mg/dL Total Bilirubin 0.8 (0.3-1.0) mg/dL AST 14 (13-39) Units/L ALT 14 (7-52) Units/L Alkaline Phosphatase 117 H (34-104) Units/L Serum Total Protein 6.8 (6.4-8.9) g/dL Albumin 4.2 (3.5-5.7) g/dL Globulin 2.6 (2.4-3.5) g/dL Albumin/Globulin Ratio 1.6 (1.1-2.2) Lipase 20 (11-82) Units/L Beta-Hydroxybutyric Acd (0.02-0.27) mmol/L /10/31 Range/Units 05:07 WBC (4.3-11.1) K/mcL RBC (3.82-4.97) M/mcL Hgb (11.5-15.4) g/dL Hct (35.3-44.9) % MCV (83.0-100.0) fL MCH (28.0-33.3) pg MCHC (31.6-35.5) g/dL RDW (11.5-14.5) % Plt Count (140-400) K/mcL MPV (9.4-12.4) fL Immature Gran % (0-4) % Seg Neutrophils % % Lymphocytes % % Monocytes % % Eosinophils % % Basophils % % Neutrophils # (1.6-8.9) K/mcL Lymphocytes # (0.6-4.6) K/mcL Monocytes # (0.0-1.3) K/mcL Eosinophils # (0.0-0.6) K/mcL Basophils # (0.0-0.2) K/mcL Sodium (136-145) mEq/L Potassium (3.5-5.1) mEq/L Chloride (98-107) mEq/L Carbon Dioxide (23-29) mEq/L BUN (6-20) mg/dL Creatinine (0.60-1.20) mg/dL Est GFR ( Amer) (> 60) Est GFR (Non-Af Amer) (> 60) BUN/Creatinine Ratio (6-26) Glucose (70-105) mg/dL Calculated Osmolality (280-300) Lactic Acid (0.5-2.2) mmol/L Calcium (8.6-10.3) mg/dL Total Bilirubin (0.3-1.0) mg/dL AST (13-39) Units/L ALT (7-52) Units/L Alkaline Phosphatase (34-104) Units/L Serum Total Protein (6.4-8.9) g/dL Albumin (3.5-5.7) g/dL Globulin (2.4-3.5) g/dL Albumin/Globulin Ratio (1.1-2.2) Lipase (11-82) Units/L Beta-Hydroxybutyric Acd 0.65 H (0.02-0.27) mmol/L S.B.A.R. - S.B.A.R. Situation: Demographics, MOA Background: Presenting Complaint, Relevant PMH, Meds, & Allergies Assessment: Vital Signs, Course and respsone to treatment, Exam Concerns, Pertinant Lab Results, Outstanding Labs Recommendation: Recommendation based on pending studies, treatments, or consults S.B.A.R. Report Given to: Viktor Milton CNP S.B.A.R. Repor Time: 06:19 Attestation Statement - Attestation Attestation: Dr. Porter note: Patient seen in conjunction with ROSEANNA Pelayo; please see his charting for complete documentation. I spent [id number] time with the patient and agree with the patient's treatment and disposition. Blood work reviewed. Hyperglycemia without significant acidosis noted. Chief complaint was left lower quadrant bowel movement and woke her from sleep, new with vomiting. At baseline she reports her sugars are often over 450 and she is injected and every day with a higher tonight over 607 100. Disposition will be pending her CT scan results. May require additional insulin.
[2018-10-16] MEDS ORDERED: Hyoscyamine SL 0.125 MG TAB.SUBL SL ONE (05:46)
[2018-10-16 05:47] LABS: Alanine Aminotransferase 14 Units/L (7-52); Albumin 4.2 g/dL (3.5-5.7); Albumin/Globulin Ratio 1.6 (1.1-2.2); Alkaline Phosphatase 117 Units/L (34-104); Aspartate Amino Transferase 14 Units/L (13-39); BUN/Creatinine Ratio 18 (6-26); Bilirubin,Total 0.8 mg/dL (0.3-1.0); Blood Urea Nitrogen 15 mg/dL (6-20); Calcium 9.7 mg/dL (8.6-10.3); Carbon Dioxide 19 mEq/L (23-29); Chloride 100 mEq/L (98-107); Globulin 2.6 g/dL (2.4-3.5); Glucose 716 mg/dL (70-105); Osmolality,Calculated 313 (280-300); Potassium 3.9 mEq/L (3.5-5.1); Sodium 134 mEq/L (136-145); Total Protein 6.8 g/dL (6.4-8.9); eGFR For Non-African Americans > 60 (> 60)
[2018-10-16] MEDS ORDERED: 0.9 % Sodium Chloride 1,000 ML IVC ONE ×2 (05:50→06:41)
[2018-10-16 05:52] LABS: Lipase 20 Units/L (11-82)
[2018-10-16 06:19] LABS: Bilirubin,Urine Negative (Negative); Blood,Urine Trace (Negative); Clarity,Urine Cloudy (Clear); Color,Urine Yellow (Yellow); Glucose,Urine (UA) >=1000 mg/dL (Normal); Ketones,Urine Negative (Negative); Leukocyte Esterase,Urine Moderate (Negative); Nitrite,Urine Negative (Negative); PH,Urine 6.5 pH Units (5.0-8.0); Protein,Urine Trace mg/dL (Neg-Trace); Specific Gravity,Urine 1.028 (1.010-1.025); Urobilinogen,Urine Normal (Normal)
[2018-10-16 06:22] LABS: Bacteria,Urine Few per hpf (None-Few); Hyaline Casts,Urine None Seen per lpf (None-Few); Squamous Epithelial Cell,Urine Many per lpf (None-Few); WBC,Urine TNTC per hpf (0-3)
[2018-10-16] MEDS ORDERED: Isovue-370 500 ML BOTTLE IVP ONE (06:26)
[2018-10-16] MEDS ORDERED: Insulin LISPRO 300 UNITS/3 ML VIAL SQ ONE (06:42)
--- NOTE | 2018-10-16 07:15 | Emergency Department Note ---
Disposition Clinical Impression: Pyelonephritis, Hyperglycemia Disposition: Admitted As Inpatient Condition: Fair Referrals: Joanne Paez MD [Primary Care Provider] - Forms: ED Satisfaction Letter, Work/School Release Abdominal Pain HPI - General Chief Complaint: ED Abdominal Pain Stated Complaint: left side Time Seen by Provider: 10/16/18 04:45 Source: patient, EMS - History of Present Illness Pt Subjective Complaint: abdominal pain Location: diffuse Pain Scale: 10 Quality: cannot describe Improves with: nothing Worsens with: movement Context: other (awoke from sleep) Associated symptoms: Reports: nausea, vomiting - Related Data Home Medications Medication Instructions Recorded Confirmed Aspirin [Adult Low Dose Aspirin EC] 81 mg PO DAILY 10/26/15 01/04/18 Etonogestrel [Nexplanon] 68 mg SQ AD 10/26/15 01/04/18 metFORMIN [Glucophage] 1,000 mg PO BIDWM 10/26/15 01/04/18 clonazePAM [Klonopin] 0.5 mg PO HS 03/04/17 01/04/18 Dabigatran Etexilate Mesylate 150 mg PO BID 05/12/17 01/04/18 [Pradaxa] Flecainide 100 mg PO BID 05/12/17 01/04/18 Omeprazole [PriLOSEC] 40 mg PO DAILY 05/12/17 01/04/18 Atorvastatin Calcium [Lipitor] 20 mg PO HS 06/03/17 01/04/18 Sertraline [Zoloft] 300 mg PO DAILY 06/03/17 01/04/18 traZODone [TraZODone] 50 - 100 mg PO HS PRN 06/03/17 01/04/18 Albuterol Sulfate [Ventolin Hfa] 2 puff IH Q4H PRN 07/09/17 01/04/18 Metoprolol [Lopressor] 50 mg PO BID 07/30/17 01/04/18 Amitriptyline [Elavil] 50 mg PO DAILY 11/18/17 01/04/18 Hyoscyamine SL [Levsin Sl] 0.125 mg SL QID 11/18/17 01/04/18 Insulin Glargine,Hum.rec.anlog 50 units SQ BID 11/18/17 01/04/18 [Basaglar Kwikpen U-100] Tizanidine HCl 4 mg PO BID PRN 11/18/17 01/04/18 Previous Rx's Medication Instructions Recorded Lisinopril [Zestril] 5 mg PO DAILY tablet 06/20/17 HYDROcodone/Acet 5/325 mg [Golva 1 tab PO Q6H PRN #12 tablet 08/03/17 5-325 mg] Acetaminophen [Tylenol] 500 mg PO Q6HR PRN #20 tablet 09/09/17 Clindamycin [Cleocin] 150 mg PO Q6HR #40 capsule 12/31/17 OxyCODONE/APAP 5/325 [Percocet 1 each PO Q6HR PRN 3 Days #10 12/31/17 5/325 MG] tablet Allergies Allergy/AdvReac Type Severity Reaction Status Date / Time No Known Allergies Allergy Verified 01/04/18 10:43 Constitutional: Reports: weakness (LLE (chronic)) ENT ED: Denies: throat pain Cardiovascular: Denies: chest pain Respiratory: Denies: dyspnea Gastrointestinal: Reports: as per HPI Musculoskeletal: Denies: back pain Integumentary: Denies: rash Neurological: Denies: headache Psychiatric: Denies: suicidal thoughts Hematological/Lymphatic: Denies: easy bleeding Allergic/Immunologic: Denies: facial swelling Abdominal Pain PMH - Past Medical History Medical history: Reports: atrial fibrillation, CHF, COPD, coronary artery disease, CVA, diabetes, hyperlipidemia, hypertension, myocardial infarction, renal disease, TIA, other Female Surgical History: Reports: , cholecystectomy, 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: Reports: no 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 Psychiatric history: Reports: anxiety, depression, prior suicide attempt, previous psychiatric hospitalization - Social History Smoking status: Never smoker Alcohol use: Reports: none Drug use: Reports: none Physical Exam - General Limitations: no limitations General appearance: alert, in distress Course Vital Signs Temperature 97.8 F 10/16/18 04:38 Pulse Rate 88 10/16/18 04:38 Respiratory Rate 18 10/16/18 04:38 Blood Pressure 184/88 10/16/18 04:38 O2 Sat by Pulse Oximetry 100 10/16/18 04:38 Temperature 97.8 F 10/16/18 04:38 Pulse Rate 88 10/16/18 04:38 Respiratory Rate 18 10/16/18 04:38 Blood Pressure 184/88 10/16/18 04:38 O2 Sat by Pulse Oximetry 100 10/16/18 04:38 Oxygen Delivery Oxygen Delivery Room Air Abdominal Pain - MDM Narrative Medical decision making narrative: 52-year-old female with history of diabetes presents with abdominal pain fatigue and is thirsty. Patient stated she is on insulin 20 units twice a day. Her baseline sugar level is above 400. She suddenly felt left sided abdominal pain yesterday. She vomited twice due to severe pain. No chills and fever. No constipation or diarrhea. No dysuria. Labs indicated sugar level 716. Urine [place] negative, moderate leukocyte; lactic acid 2.8, BVG: PH normal, bicarbonate 19 (normal), beta-hydroxybutic acid 0.65 slightly elevated. Pt reported weakness and thirsty. 2 Litters fluids and 20 units insulin given in ER. Rocephin started in ER. Impression: Pyelonephritis, hyperglycemia. Concerning of developing DKA. Patient will be admitted to observation. - Lab Data Lab results reviewed: Yes I reviewed the patient's lab results. Result diagrams: 10/16/18 05:07 10/16/18 05:07 Lab Results 10/16/18 10/16/18 10/16/18 Range/Units 04:10 05:07 05:07 WBC 6.9 (4.3-11.1) K/mcL RBC 4.70 (3.82-4.97) M/mcL Hgb 12.2 (11.5-15.4) g/dL Hct 37.0 (35.3-44.9) % MCV 78.7 L (83.0-100.0) fL MCH 26.0 L (28.0-33.3) pg MCHC 33.0 (31.6-35.5) g/dL RDW 15.5 H (11.5-14.5) % Plt Count 204 (140-400) K/mcL MPV 10.3 (9.4-12.4) fL Immature Gran % 0.4 (0-4) % Seg Neutrophils % 71.9 % Lymphocytes % 22.2 % Monocytes % 3.5 % Eosinophils % 1.6 % Basophils % 0.4 % Neutrophils # 5.0 (1.6-8.9) K/mcL Lymphocytes # 1.5 (0.6-4.6) K/mcL Monocytes # 0.2 (0.0-1.3) K/mcL Eosinophils # 0.1 (0.0-0.6) K/mcL Basophils # 0.0 (0.0-0.2) K/mcL VBG pH (7.32-7.42) pH Units VBG pCO2 (41-51) mmHg VBG pO2 (25-50) mmHg VBG HCO3 (21-27) mEq/L Sodium 134 L (136-145) mEq/L Potassium 3.9 (3.5-5.1) mEq/L Chloride 100 (98-107) mEq/L Carbon Dioxide 19 L (23-29) mEq/L BUN 15 (6-20) mg/dL Creatinine 0.85 (0.60-1.20) mg/dL Est GFR ( Amer) > 60 (> 60) Est GFR (Non-Af Amer) > 60 (> 60) BUN/Creatinine Ratio 18 (6-26) Glucose 716 H* (70-105) mg/dL Calculated Osmolality 313 H (280-300) Lactic Acid (0.5-2.2) mmol/L Calcium 9.7 (8.6-10.3) mg/dL Total Bilirubin 0.8 (0.3-1.0) mg/dL AST 14 (13-39) Units/L ALT 14 (7-52) Units/L Alkaline Phosphatase 117 H (34-104) Units/L Serum Total Protein 6.8 (6.4-8.9) g/dL Albumin 4.2 (3.5-5.7) g/dL Globulin 2.6 (2.4-3.5) g/dL Albumin/Globulin Ratio 1.6 (1.1-2.2) Lipase 20 (11-82) Units/L Beta-Hydroxybutyric Acd (0.02-0.27) mmol/L Urine Color Yellow (Yellow) Urine Clarity Cloudy A (Clear) Urine pH 6.5 (5.0-8.0) pH Units Ur Specific [place] 1.028 H (1.010-1.025) Urine Protein Trace (Neg-Trace) mg/dL Urine Glucose (UA) >=1000 H (Normal) mg/dL Urine Ketones Negative (Negative) mg/dL Urine Blood Trace H (Negative) Urine Nitrite Negative (Negative) Urine Bilirubin Negative (Negative) Urine Urobilinogen Normal (Normal) mg/dL Ur Leukocyte Esterase Moderate H (Negative) Urine Microscopic RBC 3-5 H (0-3) per hpf Urine Microscopic WBC TNTC H (0-3) per hpf Ur Squamous Epith Cells Many H (None-Few) per lpf Urine Bacteria Few (None-Few) per hpf Hyaline Casts None Seen (None-Few) per lpf 10/16/18 10/16/18 10/16/18 Range/Units 05:07 05:07 08:00 WBC (4.3-11.1) K/mcL RBC (3.82-4.97) M/mcL Hgb (11.5-15.4) g/dL Hct (35.3-44.9) % MCV (83.0-100.0) fL MCH (28.0-33.3) pg MCHC (31.6-35.5) g/dL RDW (11.5-14.5) % Plt Count (140-400) K/mcL MPV (9.4-12.4) fL Immature Gran % (0-4) % Seg Neutrophils % % Lymphocytes % % Monocytes % % Eosinophils % % Basophils % % Neutrophils # (1.6-8.9) K/mcL Lymphocytes # (0.6-4.6) K/mcL Monocytes # (0.0-1.3) K/mcL Eosinophils # (0.0-0.6) K/mcL Basophils # (0.0-0.2) K/mcL VBG pH 7.33 (7.32-7.42) pH Units VBG pCO2 40 L (41-51) mmHg VBG pO2 146 H (25-50) mmHg VBG HCO3 21 (21-27) mEq/L Sodium (136-145) mEq/L Potassium (3.5-5.1) mEq/L Chloride (98-107) mEq/L Carbon Dioxide (23-29) mEq/L BUN (6-20) mg/dL Creatinine (0.60-1.20) mg/dL Est GFR ( Amer) (> 60) Est GFR (Non-Af Amer) (> 60) BUN/Creatinine Ratio (6-26) Glucose (70-105) mg/dL Calculated Osmolality (280-300) Lactic Acid 2.8 H (0.5-2.2) mmol/L Calcium (8.6-10.3) mg/dL Total Bilirubin (0.3-1.0) mg/dL AST (13-39) Units/L ALT (7-52) Units/L Alkaline Phosphatase (34-104) Units/L Serum Total Protein (6.4-8.9) g/dL Albumin (3.5-5.7) g/dL Globulin (2.4-3.5) g/dL Albumin/Globulin Ratio (1.1-2.2) Lipase (11-82) Units/L Beta-Hydroxybutyric Acd 0.65 H (0.02-0.27) mmol/L Urine Color (Yellow) Urine Clarity (Clear) Urine pH (5.0-8.0) pH Units Ur Specific [place] (1.010-1.025) Urine Protein (Neg-Trace) mg/dL Urine Glucose (UA) (Normal) mg/dL Urine Ketones (Negative) mg/dL Urine Blood (Negative) Urine Nitrite (Negative) Urine Bilirubin (Negative) Urine Urobilinogen (Normal) mg/dL Ur Leukocyte Esterase (Negative) Urine Microscopic RBC (0-3) per hpf Urine Microscopic WBC (0-3) per hpf Ur Squamous Epith Cells (None-Few) per lpf Urine Bacteria (None-Few) per hpf Hyaline Casts (None-Few) per lpf - Radiology Data Radiology results reviewed: Yes I reviewed the patient's radiology results. TECHNIQUE: CT of the abdomen and pelvis was performed with the administration of intravenous contrast. Multiplanar reformatted images are provided for review. Dose modulation, iterative reconstruction, and/or weight based adjustment of the mA/kV was utilized to reduce the radiation dose to as low as reasonably achievable. COMPARISON: 08/08/2017 HISTORY: ORDERING SYSTEM PROVIDED HISTORY: abdominal pain 75 ml of [id number] Left lower quadrant abdominal pain, acute onset. Initial presentation. FINDINGS: Lower Chest: The lung bases are clear. There are no pleural or pericardial effusions evident. Organs: There is diffuse hepatic steatosis. Cholecystectomy clips are present. Spleen is at the upper normal limits for size. No focal splenic lesions are identified. The pancreas and adrenal glands are normal in appearance. There is abnormal hypoattenuation involving the upper pole of the left kidney, which has developed since the previous exam. There is abnormal left perinephric inflammatory stranding. There is no nephroureterolithiasis identified. The right kidney contains a 1 cm angiomyolipoma, unchanged. The right kidney is otherwise normal in appearance. GI/Bowel: There are no abnormally dilated loops of large or small bowel present. There is no mesenteric inflammatory stranding present. The appendix is normal in appearance. There is a stable, bilobed, 1.6 x 0.8 x 2.3 cm lesion posterior to the cecum. This is unchanged dating back to 07/09/2017. Pelvis: The urinary bladder is normal in appearance. There is no free fluid or pelvic mass identified. Peritoneum/Retroperitoneum: Subcentimeter retroperitoneal lymph nodes are noted. There is no pathologically enlarged lymphadenopathy identified. Bones/Soft Tissues: No lytic or blastic osseous lesions are identified. CT/CT abd pelvis w iv no oral IMPRESSION: Heterogeneous hypoattenuation involving the upper pole left kidney with surrounding perinephric inflammatory stranding suggesting acute left pyelonephritis. Stable benign right renal angiomyolipoma. Hepatic steatosis. D/ / 10/16/2018 07:59:28 Jose Varma MD / shweta Interpreting Provider: Jose Varma MD - EKG Data EKG attestation: Yes I reviewed and interpreted this EKG. EKG results narrative: normal EKG
[2018-10-16] MEDS ORDERED: cefTRIAXone 1,000 MG in 0.9 % Sodium Chloride Mini Bag 100 ML IVPB ONE (08:01)
[2018-10-16 08:04] LABS: VBG HCO3 21 mEq/L (21-27); VBG PCO2 40 mmHg (41-51); VBG PH 7.33 pH Units (7.32-7.42); VBG PO2 146 mmHg (25-50)
[2018-10-16] MEDS ORDERED: Insulin Human Regular 10 UNIT in 0.9 % Sodium Chloride 10 ML IV ONE (08:08)
[2018-10-16] MEDS ORDERED: *HR* FentaNYL (PF) 100 MCG/2 ML VIAL IVP ONE (09:38)
[2018-10-16] MEDS ORDERED: Naloxone 0.4 MG/ML INJ IVP PRN (12:02)
[2018-10-16] MEDS ORDERED: Acetaminophen 325 MG TABLET PO PRN (12:02)
[2018-10-16] MEDS ORDERED: D5% in Water 1,000 ML IVC PRN (12:07)
[2018-10-16] MEDS ORDERED: Dextrose Gel 15 GM/37.5 ML TUBE PO PRN ×2 (12:07)
[2018-10-16] MEDS ORDERED: *HR* Dextrose 50 % in Water (Syg) 50 ML SYRINGE IVP PRN (12:07)
--- NOTE | 2018-10-16 12:48 | Internal Med History&Physical ---
Date of Encounter: 10/16/18 Time of Encounter: 12:48 Internal Medicine - H&P: HPI Chief complaint: Abdominal pain History of present illness: 52-year-old female with history of diabetes presents with abdominal pain, fatigue and feeling thirsty, The patient is on insulin and reported that her blood sugar is often uncontrolled with level that around 400. The patient r eports left side abdominal pain associated with nausea and vomiting. She was evaluated by the ER staff and he Labs revealed hyperglycemia of with sugar level of 716. Urine is negative for Ketons ; lactic acid 2.8, anion gap (normal), beta-hydroxybutic acid 0.[address] scan revealed Heterogeneous hypoattenuation involving the upper pole left kidney with surrounding perinephric inflammatory stranding suggesting acute left pyelonephritis. Past Med Surg Social Fam HX - Past Medical History Medical history: atrial fibrillation, CHF, COPD, coronary artery disease, CVA, diabetes, hyperlipidemia, hypertension, myocardial infarction, renal disease, TIA, other Additional medical history: c-diff, cervialgia, Loop recorder, cervico-occipital neurolgia-cerebral hemorrhage,. anemia, spasmadic torticollis. ANTOINETTE. respiratory failure. dydfunctional uterine bleed, obesity, conversion disorder Psychiatric history: anxiety, depression, prior suicide attempt, previous psychiatric hospitalization - Past Surgical History Surgical History: , cholecystectomy Additional surgical history: loop recorder and cardiac ablasion - Social History Smoking Status: Never smoker Smokeless Tobacco Status: No Alcohol use: occasionally Drug use: none - Family History Mother Living Status: Hx Family Cardiac Disorders: Yes Hx Family Respiratory Disorders: Yes (copd) Hx Family Cancer: Yes (lung cancer) Hx Family Endocrine Disorder: Yes (DM type II) Father Adopted: No Family Member Ethnicity: Non- Living Status: Hx Family Cardiac Disorders: Yes Hx Family Respiratory Disorders: Yes Hx Family Cancer: Yes (LUNG) Hx Family GI Disorders: No Hx Family Endocrine Disorder: Yes (DM) Hx Family Neuromuscular Disorders: No Hx Family Neurologic Disorders: No Hx Family HEENT Disorders: No Hx Family Autoimmune Disorders: No Internal Medicine - H&P: Meds Etonogestrel [Nexplanon] 68 mg SQ AD 10/26/15 [History] metFORMIN [Glucophage] 1,000 mg PO BIDWM 10/26/15 [History] clonazePAM [Klonopin] 0.5 mg PO HS 03/04/17 [History] Dabigatran Etexilate Mesylate [Pradaxa] 150 mg PO BID 05/12/17 [History] Flecainide 100 mg PO BID 05/12/17 [History] Omeprazole [PriLOSEC] 40 mg PO DAILY 05/12/17 [History] Atorvastatin Calcium [Lipitor] 20 mg PO HS 06/03/17 [History] traZODone [TraZODone] 50 - 100 mg PO HS PRN 06/03/17 [History] Lisinopril [Zestril] 5 mg PO DAILY tablet 06/20/17 [Rx] Albuterol Sulfate [Ventolin Hfa] 2 puff IH Q4H PRN 07/09/17 [History] Acetaminophen [Tylenol] 500 mg PO Q6HR PRN #20 tablet 09/09/17 [Rx] Amitriptyline [Elavil] 50 mg PO HS 11/18/17 [History] Insulin Glargine,Hum.rec.anlog [Basaglar Kwikpen U-100] 50 units SQ BID 11/18/17 [History] Tizanidine HCl 4 mg PO BID PRN 11/18/17 [History] FLUoxetine HCl [Prozac] 40 mg PO DAILY 10/16/18 [History] Aspirin [Lo-Dose Aspirin EC] 81 mg PO DAILY 10/17/18 [History] Magnesium Oxide [Magnesium] 400 mg PO BID 10/17/18 [History] Metoprolol [Lopressor] 25 mg PO BID 10/17/18 [History] Potassium Chloride [Klor-Con 10] 10 meq PO DAILY 10/17/18 [History] Amoxicillin/Clavulanate [Augmentin] 875 mg PO BID 10 Days #20 tablet 10/19/18 [Rx] HYDROcodone/Acet 5/325 mg [[place] 5-325 mg] 1 tab PO Q6H PRN 5 Days #10 tab 10/19/18 [Rx] Lactobacillus Acidophilus [Acidophilus] 1 each PO BID 10 Days #20 tab.chew 10/19/18 [Rx] Allergy/AdvReac Type Severity Reaction Status Date / Time No Known Allergies Allergy Verified 10/17/18 09:08 All Systems PM: A 10-system review of systems was performed and is negative for pertinent findings except as documented above in the HPI. - Constitutional Constitutional: fatigue, malaise, no chills, no fever(s), no night sweats - EENT Eyes: no change in vision, no discharge, no pain, no photophobia Ears: no ear discharge, no ear pain, no tinnitus Nose, mouth and throat: no dysphagia, no nasal discharge, no neck pain, no sore throat - Cardiovascular Cardiovascular ROS IM: no chest pain, no diaphoresis, no dyspnea, no lightheadedness, no palpitations, no syncope - Respiratory Respiratory: no cough, no dyspnea, no wheezing, no excessive phlegm production - Gastrointestinal Gastrointestinal: abdominal pain, no diarrhea, no hematemesis, no hematochezia, no melena, no nausea, no vomiting - Genitourinary Genitourinary: no change in urinary stream, no dysuria, no flank pain, no hematuria - Musculoskeletal Musculoskeletal ROS IM: no numbness, no tingling - Integumentary Integumentary IM: no rash, no unusual bruising - Neurological Neurological ROS: no confusion, no convulsions, no focal weakness, no numbness, no tingling, no tremor(s) - Hematologic/Lymphatic Hematologic/Lymphatic: no easy bruising - Constitutional Vitals: Temp Pulse Resp BP Pulse Ox 98.8 F 98 87 121/65 99 10/16/18 09:15 10/16/18 09:15 10/16/18 10:47 10/16/18 10:47 10/16/18 09:15 General appearance: Present: A&O X 3 Exam: as below - Head Head exam: Present: atraumatic, normocephalic - Eye Eye exam: Present: PERRL, conjuntiva pink, sclera anicteric Pupils: Present: PERRL - Neck Neck exam general surgery: Present: supple, trachea midline. Absent: lymphadenopathy - Respiratory Respiratory exam: Present: CTAB. Absent: accessory muscle use, rales, rhonchi, wheezes - Cardiovascular Cardiovascular exam: Present: RRR, +S1, +S2. Absent: diastolic murmur, gallop, rubs, systolic murmur - GI/Abdominal GI/Abdominal exam: Present: normal bowel sounds, soft, no peritoneal signs. Absent: distended, tenderness - Extremities Exam Extremities exam: Present: warm, radial pulses palpable and symmetrical. Absent: calf tenderness, cyanotic, pedal edema - Neurological Exam Neurological exam: Present: CN II-XII intact, oriented X3, no focal deficits. Absent: pronater drift, facial droop, speech deficit - Skin Skin exam: Present: dry, intact Internal Med - H&P Results - Labs CBC & Chem 7: 10/18/18 04:55 10/18/18 04:55 Labs: Short CBC 10/16/18 Range/Units 05:07 WBC 6.9 (4.3-11.1) K/mcL Hgb 12.2 (11.5-15.4) g/dL Hct 37.0 (35.3-44.9) % Plt Count 204 (140-400) K/mcL Neutrophils # 5.0 (1.6-8.9) K/mcL BMP 10/16/18 05:07 Sodium 134 L Potassium 3.9 Chloride 100 Carbon Dioxide 19 L BUN 15 Creatinine 0.85 Glucose 716 H* Calcium 9.7 Liver Function 10/16/18 Range/Units 05:07 Total Bilirubin 0.8 (0.3-1.0) mg/dL AST 14 (13-39) Units/L ALT 14 (7-52) Units/L Alkaline Phosphatase 117 H (34-104) Units/L Albumin 4.2 (3.5-5.7) g/dL Urine 10/16/18 Range/Units 04:10 Urine Color Yellow (Yellow) Urine Clarity Cloudy A (Clear) Urine pH 6.5 (5.0-8.0) pH Units Ur Specific [place] 1.028 H (1.010-1.025) Urine Protein Trace (Neg-Trace) mg/dL Urine Glucose (UA) >=1000 H (Normal) mg/dL - ABG Interpretation ABG results: 10/16/18 08:00 VBG pH 7.33 VBG pCO2 40 L VBG pO2 146 H VBG HCO3 21 - Impressions ITS Impressions Abdomen/Pelvis CT 10/16/18 06:26 IMPRESSION: Heterogeneous hypoattenuation involving the upper pole left kidney with surrounding perinephric inflammatory stranding suggesting acute left pyelonephritis. Stable benign right renal angiomyolipoma. Hepatic steatosis. D/ / 10/16/2018 07:59:28 Jose Varma MD / shweta Interpreting Provider: Jose Varma MD - Assessment and Plan (1) Pyelonephritis Status: Acute Assessment and plan: Heterogeneous hypoattenuation involving the upper pole left kidney with surrounding perinephric inflammatory stranding suggesting acute left pyelonephritis. We will start the patient on IV Fluid with Isotonic fluid and st art empiric ABs, F/U on Urine Cx and adjust ABs regimen if indicated. (2) Hyperglycemia Status: Acute Assessment and plan: The patient has DM which is not well controlled. We will start insulin sliding scale with coverage, and adjust he home regimen prior to D/C. (3) Essential hypertension Status: Chronic Assessment and plan: We will continue home meds (4) Diabetes mellitus, type II, insulin dependent Status: Chronic Assessment and plan: The patient DM is not well controlled. We will start insulin sliding scale with coverage, and adjust he home regimen prior to D/C. (5) Anxiety Status: Chronic Assessment and plan: We will continue home meds fluoxetine 40mg/PO daily and trazodone 50 mg by mouth at bedtime. (6) Hyperlipemia Status: Chronic Assessment and plan: Continue atorvastatin 20 mg by mouth at bedtime. Qualifiers: Hyperlipidemia type: unspecified Qualified Code(s): E78.5 - Hyperlipidemia, unspecified (7) DVT prophylaxis Status: Acute - Time Spent With Patient Total time spent is greater than 50% in coordination of care (as documented) at patient's floor/unit and/or counseling patient:
[2018-10-16 13:50] LABS: Chol/HDL Ratio 4.9 (0-4.9)
[2018-10-16] MEDS: Insulin LISPRO 300 UNITS/3 ML VIAL SQ SCH ×4 (13:54→21:07)
[2018-10-16] MEDS: 0.9 % Sodium Chloride 1,000 ML IVC SCH ×2 (13:55→21:47)
[2018-10-16 14:43] LABS: Estimated Average Glucose 335 mg/dl; Hemoglobin A1C 13.3 %
[2018-10-16] MEDS ORDERED: *HR* Morphine 2 MG/ML SYRINGE IVP STA (18:25)
[2018-10-16] MEDS: OXYCODONE Oral CONC 10 MG/0.5 ML ORAL.SYG SL PRN (21:14)
[2018-10-17] MEDS ORDERED: traZODone 50 MG TABLET PO PRN (00:02)
[2018-10-17] MEDS: OXYCODONE Oral CONC 10 MG/0.5 ML ORAL.SYG SL PRN ×3 (01:53→19:55)
[2018-10-17] MEDS: tiZANidine 4 MG TABLET PO PRN ×2 (03:50→23:14)
[2018-10-17 07:44] LABS: Alanine Aminotransferase 13 Units/L (7-52); Albumin 3.2 g/dL (3.5-5.7); Albumin/Globulin Ratio 1.6 (1.1-2.2); Alkaline Phosphatase 81 Units/L (34-104); Aspartate Amino Transferase 18 Units/L (13-39); BUN/Creatinine Ratio 18 (6-26); Bilirubin,Total 0.6 mg/dL (0.3-1.0); Blood Urea Nitrogen 8 mg/dL (6-20); Carbon Dioxide 22 mEq/L (23-29); Chloride 106 mEq/L (98-107); Glucose 392 mg/dL (70-105); Magnesium 1.5 mg/dL (1.6-2.6); Osmolality,Calculated 299 (280-300); Phosphorous 3.3 mg/dL (2.7-4.5); Potassium 3.6 mEq/L (3.5-5.1); Sodium 137 mEq/L (136-145); Total Protein 5.2 g/dL (6.4-8.9); eGFR For Non-African Americans > 60 (> 60)
[2018-10-17 07:54] LABS: Prothrombin Time 11.3 Seconds (9.4-12.1)
[2018-10-17 07:57] LABS: Activated Partial Thrombo Time 26.6 Seconds (26.0-36.0)
[2018-10-17] MEDS: cefTRIAXone 1,000 MG in Water for inj. (sterile) 20 ML 10 ML IVP SCH (08:20)
[2018-10-17] MEDS: Aspirin Enteric Coated 81 MG Tablet PO SCH (08:25)
[2018-10-17] MEDS: FLUoxetine 20 MG CAPSULE PO SCH (08:25)
[2018-10-17] MEDS: Insulin LISPRO 300 UNITS/3 ML VIAL SQ SCH ×4 (08:25→19:59)
[2018-10-17] MEDS: Insulin DETEMIR 100 UNIT/ML X5UNITS SQ SCH ×2 (09:14→19:56)
[2018-10-17 09:15] LABS: Hematocrit 34.3 % (35.3-44.9); Mean Corpuscular HGB Conc 32.1 g/dL (31.6-35.5); Mean Corpuscular Hemoglobin 26.3 pg (28.0-33.3); Mean Corpuscular Volume 82.1 fL (83.0-100.0); Mean Platelet Volume 10.1 fL (9.4-12.4); Platelet Count 156 K/mcL (140-400); Red Blood Count 4.18 M/mcL (3.82-4.97); Red Cell Distribution Width 15.7 % (11.5-14.5)
[2018-10-17] MEDS: *HR* Dabigatran 150 MG CAPSULE PO SCH ×2 (09:15→19:55)
[2018-10-17] MEDS ORDERED: *HR* Promethazine 25 MG/ML VIAL IVP PRN (13:43)
--- NOTE | 2018-10-17 13:47 | Internal Med Progress Note ---
Hospitalist Progress Note - Encounter Date of Encounter: 10/17/18 Time of Encounter: 13:45 - Subjective Interval History: I have seen and evaluated the patient at bedside. patient reports feeling nauseated, and reports one episode of non-bilious, non-bloody vomiting. reports b/l lower back pain. denies fever or chills. - Exam Vitals: Temp Pulse Resp BP Pulse Ox 98.1 F 57 14 119/87 99 10/17/18 10:47 10/17/18 10:47 10/17/18 10:47 10/17/18 10:47 10/17/18 10:47 Exam: Vitals: reviewed General: Alert and oriented x4. In mild distress due to back pain, nausea and vomiting Cardiovascular: Irregularly irregular, normal S1 & S2, no rubs, murmurs or gallops. Lungs: CTA b/l, no wheezes or crackles. Abdomen: Obese, soft, non-tender, no rigidity. CVA tenderness b/l. Extremities: No deformity, no edema Neurological: Normal cognition and motor skills. Rest of the physical exam is non contributory - Assessment and Plan (1) Pyelonephritis Current Visit: Yes Status: Acute Assessment and Plan: Patient with CVA tenderness on evaluation. CT/CT abd pelvis w iv no oral IMPRESSION: Heterogeneous hypoattenuation involving the upper pole left kidney with surrounding perinephric inflammatory stranding suggesting acute left pyelonephritis. Plan continue IV antibiotics will repeat UA reflect to culture anti-emetics and PPIs Blood culture: no growth, pending final report (2) Hyperlipemia Current Visit: No Status: Chronic Assessment and Plan: patient is on a high dose statin (3) Diabetes mellitus, type II, insulin dependent Current Visit: No Status: Chronic Assessment and Plan: blood sugar is sub-optimally controlled. started on levemir 10 units BID, co ntinue lispro low dose sliding scale ac. carb controlled diet. Comments: was controlled yesterday- suspect higher today d/t stress and anxiety. will keep on current SS insulin and reheck gluc in am. (4) Essential hypertension Current Visit: No Status: Chronic Assessment and Plan: BP is well controlled on a bb and lisinopril 5mg/PO daily (5) Anxiety Current Visit: No Status: Chronic Assessment and Plan: Hx of anxiety and depression on fluoxetine 40mg/PO daily. Comments: on xanax but PCP no longer writing for it. will write for clonazepam BID. pt did calm down with deep breathing. (6) Hypomagnesemia Current Visit: Yes Status: Acute Assessment and Plan: electrolyte replaced. (7) COPD (chronic obstructive pulmonary disease) Current Visit: No Status: Chronic Assessment and Plan: not on acute exacerbation. chest is clear to auscultation. continue bro nchodilators PRN. (8) Obesity (BMI 30-39.9) Current Visit: No Status: Chronic (9) Paroxysmal atrial fibrillation Current Visit: No Status: Chronic Assessment and Plan: Rate controlled on metoprolol and flecainide. on dabigatran for secondary stroke prevention. DVT Prophylaxis: patient on pradaxa - Summary of Assessment and Plan Summary of Assessment and Plan: patient to remain in the hospital due to pyelonephritis, nausea and vomiting. - Time Spent with Patient Total time spent is greater than 50% in coordination of care (as documented) at patient's floor/unit and/or counseling patient: Greater than 35 minutes (40) Plan of Care Discussed with: patient (and the nurse.) Internal Medicine: Result - Labs CBC & Chem 7: 10/17/18 08:43 10/17/18 07:00 Labs: Short CBC 10/17/18 Range/Units 08:43 WBC 4.8 (4.3-11.1) K/mcL Hgb 11.0 L (11.5-15.4) g/dL Hct 34.3 L (35.3-44.9) % Plt Count 156 (140-400) K/mcL BMP 10/17/18 07:00 Sodium 137 Potassium 3.6 Chloride 106 Carbon Dioxide 22 L BUN 8 Creatinine 0.45 L Glucose 392 H Calcium 8.0 L Liver Function 10/17/18 Range/Units 07:00 Total Bilirubin 0.6 (0.3-1.0) mg/dL AST 18 (13-39) Units/L ALT 13 (7-52) Units/L Alkaline Phosphatase 81 (34-104) Units/L Albumin 3.2 L (3.5-5.7) g/dL - ABG Interpretation ABG results: PT/INR, D-dimer PT 11.3 Seconds (9.4-12.1) 10/17/18 07:00 Consult Discharge Plan - Plan Referrals: Joanne Paez MD [Primary Care Provider] - (2) Hyperlipemia Qualifiers: Hyperlipidemia type: unspecified Qualified Code(s): E78.5 - Hyperlipidemia, unspecified (7) COPD (chronic obstructive pulmonary disease) Qualifiers: COPD type: chronic bronchitis Chronic bronchitis type: unspecified Qualified Code(s): J42 - Unspecified chronic bronchitis
[2018-10-18] MEDS: OXYCODONE Oral CONC 10 MG/0.5 ML ORAL.SYG SL PRN ×4 (03:24→23:15)
[2018-10-18 05:06] LABS: Basophils % 0.5 %; Eosinophils # 0.1 K/mcL (0.0-0.6); Eosinophils % 1.6 %; Hematocrit 31.6 % (35.3-44.9); Hemoglobin 10.2 g/dL (11.5-15.4); Immature Granulocytes % 0.4 % (0-4); Lymphocytes # 1.6 K/mcL (0.6-4.6); Lymphocytes % 28.9 %; Mean Corpuscular HGB Conc 32.3 g/dL (31.6-35.5); Mean Corpuscular Hemoglobin 26.6 pg (28.0-33.3); Mean Corpuscular Volume 82.5 fL (83.0-100.0); Mean Platelet Volume 10.3 fL (9.4-12.4); Monocytes # 0.3 K/mcL (0.0-1.3); Monocytes % 4.7 %; Neutrophils # 3.5 K/mcL (1.6-8.9); Platelet Count 168 K/mcL (140-400); Red Blood Count 3.83 M/mcL (3.82-4.97); Red Cell Distribution Width 15.9 % (11.5-14.5); Segmented Neutrophils % 63.9 %
[2018-10-18 05:24] LABS: BUN/Creatinine Ratio 22 (6-26); Blood Urea Nitrogen 12 mg/dL (6-20); Calcium 8.4 mg/dL (8.6-10.3); Carbon Dioxide 24 mEq/L (23-29); Chloride 105 mEq/L (98-107); Glucose 339 mg/dL (70-105); Magnesium 1.7 mg/dL (1.6-2.6); Osmolality,Calculated 297 (280-300); Phosphorous 3.5 mg/dL (2.7-4.5); Potassium 4.1 mEq/L (3.5-5.1); Sodium 137 mEq/L (136-145); eGFR For Non-African Americans > 60 (> 60)
[2018-10-18] MEDS: Aspirin Enteric Coated 81 MG Tablet PO SCH (08:08)
[2018-10-18] MEDS: FLUoxetine 20 MG CAPSULE PO SCH (08:09)
[2018-10-18] MEDS: cefTRIAXone 1,000 MG in Water for inj. (sterile) 20 ML 10 ML IVP SCH (08:09)
[2018-10-18] MEDS: *HR* Dabigatran 150 MG CAPSULE PO SCH ×2 (08:09→19:51)
[2018-10-18] MEDS: Insulin LISPRO 300 UNITS/3 ML VIAL SQ SCH ×5 (08:13→17:10)
[2018-10-18] MEDS: Insulin DETEMIR 100 UNIT/ML X5UNITS SQ SCH ×2 (09:05→19:51)
--- NOTE | 2018-10-18 10:14 | Internal Med Progress Note ---
Hospitalist Progress Note - Encounter Date of Encounter: 10/18/18 Time of Encounter: 10:11 - Subjective Interval History: I have seen and evaluated the patient at bedside. Patient reports having some difficulty swallowing. also reports abdominal pain when the pain medication wears off. denies nausea or vomiting. - Exam Vitals: Temp Pulse Resp BP Pulse Ox 97.5 F L 65 14 137/72 93 10/18/18 07:16 10/18/18 07:16 10/18/18 07:16 10/18/18 07:16 10/18/18 07:16 Exam: Vitals: reviewed General: Alert and oriented x4. In mild distress due to difficulty swallowing Cardiovascular: Irregularly irregular, normal S1 & S2, no rubs, murmurs or gallops. Lungs: CTA b/l, no wheezes or crackles. Abdomen: Obese, soft, non-tender, no rigidity. CVA tenderness b/l. NABS in all 4 quadrants Extremities: No deformity, no edema Neurological: Normal cognition Rest of the physical exam is non contributory - Assessment and Plan (1) Pyelonephritis Current Visit: Yes Status: Acute Assessment and Plan: Patient reports the abdominal pain has been controlled with the pain medications. denies nausea or vomiting today CT/CT abd pelvis w iv no oral IMPRESSION: Heterogeneous hypoattenuation involving the upper pole left kidney with surrounding perinephric inflammatory stranding suggesting acute left pyelonephritis. Plan continue IV antibiotics for 24 more hours/ UA reflect to culture ordered continue promethazine 12.5mg/IV Q6HR PRN on omeprazole 40mg/PO daily discontinue calcium carbonate Blood culture: no growth, pending final report On oxycodone 5 mg sublingual every 4 hours when necessary. (2) Hyperlipemia Current Visit: No Status: Chronic Assessment and Plan: Continue atorvastatin 20 mg by mouth at bedtime. (3) Diabetes mellitus, type II, insulin dependent Current Visit: No Status: Chronic Assessment and Plan: Blood Sherman suboptimally controlled. Increase Levemir to 20 units twice a day, lispro 5 units before meals, continue lispro low-dose sliding scale. Carb controlled diet. Comments: was controlled yesterday- suspect higher today d/t stress and anxiety. will keep on current SS insulin and reheck gluc in am. (4) Essential hypertension Current Visit: No Status: Chronic Assessment and Plan: BP is well controlled. Continue metoprolol 50 mg by mouth twice a day and lisinopril 5mg/PO daily (5) Anxiety Current Visit: No Status: Chronic Assessment and Plan: Hx of anxiety and depression on fluoxetine 40mg/PO daily. Continue trazodone 50 mg by mouth at bedtime. Comments: on xanax but PCP no longer writing for it. will write for clonazepam BID. pt did calm down with deep breathing. (6) Hypomagnesemia Current Visit: Yes Status: Resolved (7) COPD (chronic obstructive pulmonary disease) Current Visit: No Status: Chronic Assessment and Plan: Not on acute exacerbation. Chest is clear to auscultation. Continue bronchodilators when necessary. (8) Obesity (BMI 30-39.9) Current Visit: No Status: Chronic (9) Paroxysmal atrial fibrillation Current Visit: No Status: Chronic Assessment and Plan: Rate controlled on metoprolol. Continue flecainide 100 mg by mouth twice a day. On Dabigatran 150mg/PO BID for secondary stroke prevention. DVT Prophylaxis: Patient is on an oral anticoagulant. - Summary of Assessment and Plan Summary of Assessment and Plan: Patient to remain in the hospital due to dysphagia, pending speech evaluation. Pyelonephritis with persistent abdominal pain. Potential discharge tomorrow morning. - Time Spent with Patient Total time spent is greater than 50% in coordination of care (as documented) at patient's floor/unit and/or counseling patient: Greater than 35 minutes (40) Plan of Care Discussed with: patient (and the nurse) Internal Medicine: Result - Labs CBC & Chem 7: 10/18/18 04:55 10/18/18 04:55 Labs: Short CBC 10/18/18 Range/Units 04:55 WBC 5.5 (4.3-11.1) K/mcL Hgb 10.2 L (11.5-15.4) g/dL Hct 31.6 L (35.3-44.9) % Plt Count 168 (140-400) K/mcL Neutrophils # 3.5 (1.6-8.9) K/mcL BMP 10/18/18 04:55 Sodium 137 Potassium 4.1 Chloride 105 Carbon Dioxide 24 BUN 12 Creatinine 0.55 L Glucose 339 H Calcium 8.4 L - ABG Interpretation ABG results: PT/INR, D-dimer PT 11.3 Seconds (9.4-12.1) 10/17/18 07:00 Consult Discharge Plan - Plan Referrals: Joanne Paez MD [Primary Care Provider] - (2) Hyperlipemia Qualifiers: Hyperlipidemia type: unspecified Qualified Code(s): E78.5 - Hyperlipidemia, unspecified (7) COPD (chronic obstructive pulmonary disease) Qualifiers: COPD type: chronic bronchitis Chronic bronchitis type: unspecified Qualified Code(s): J42 - Unspecified chronic bronchitis
[2018-10-18] MEDS: tiZANidine 4 MG TABLET PO PRN (20:07)
[2018-10-19] MEDS: OXYCODONE Oral CONC 10 MG/0.5 ML ORAL.SYG SL PRN ×2 (03:44→07:45)
[2018-10-19] MEDS: *HR* Dabigatran 150 MG CAPSULE PO SCH (07:44)
[2018-10-19] MEDS: Aspirin Enteric Coated 81 MG Tablet PO SCH (07:44)
[2018-10-19] MEDS: cefTRIAXone 1,000 MG in Water for inj. (sterile) 20 ML 10 ML IVP SCH (07:44)
[2018-10-19] MEDS: FLUoxetine 20 MG CAPSULE PO SCH (07:46)
[2018-10-19 07:59] VITALS: BP 155/89
--- NOTE | 2018-10-19 08:25 | Discharge Summary ---
Orders not resulted at time of discharge: Pending orders 10/16/18 08:40 Culture,Blood [BC] Stat 10/17/18 13:44 UA w. reflex microscopic [Urinalysis reflex Microscopic] [URIN] Stat Date of Encounter: 10/19/18 Time of Encounter: 08:16 - Discharge Diagnosis (1) Pyelonephritis Priority: Primary Status: Acute (2) Hyperlipemia Priority: Secondary Status: Chronic Qualifiers: Hyperlipidemia type: unspecified Qualified Code(s): E78.5 - Hyperlipidemia, unspecified (3) Diabetes mellitus, type II, insulin dependent Priority: Secondary Status: Chronic (4) Essential hypertension Priority: Secondary Status: Chronic (5) Anxiety Priority: Secondary Status: Chronic (6) Hypomagnesemia Priority: Secondary Status: Resolved (7) COPD (chronic obstructive pulmonary disease) Priority: Secondary Status: Chronic Qualifiers: COPD type: chronic bronchitis Chronic bronchitis type: unspecified Qualified Code(s): J42 - Unspecified chronic bronchitis (8) Obesity (BMI 30-39.9) Priority: Secondary Status: Chronic (9) Paroxysmal atrial fibrillation Priority: Secondary Status: Chronic (10) Dysphagia Priority: Primary Status: Acute Qualifiers: Dysphagia type: unspecified Qualified Code(s): R13.10 - Dysphagia, unspecified Hospital course: Ms. Jacome is a 52 year old female has medical history of atrial fibrillation, CHF, COPD, coronary artery disease, CVA, diabetes, hyperlipidemia, hypertension, myocardial infarction, renal disease, TIA. presents with abdominal pain fatigue and is thirsty. Patient also reports sudden onset left sided abdominal pain the day on her presentation to the emergency room, associated with nausea and 2 episode of vomiting. In the emergency room blood sugar was found to be 716, lactic acid of 2.8, and mild acidosis with a bicarbonate of 19. Workup for DKA negative. A CT of the abdomen and pelvis was done: Heterogeneous hypoattenuation involving the upper pole left kidney with surrounding perinephric inflammatory stranding suggesting acute left pyelonephritis. Patient admitted to the hospital due to nausea and vomiting, and radiographic findings of pyelonephritis. Patient was managed with IV antibiotics, antiemetics, PPI and IV fluids. Blood cultures done, negative for more than 48 hours, final report pending discharge today. During these admission patient complained of dysphagia, speech evaluation was requested, evaluated the patient and recommended: EVENT MARKETING REPRESENTATIVE recommending diet of regular solids and thin liquids. No further therapy recommended at this time. Patient acute symptoms have resolved, she is hemodynamically is stable to be discharged home on oral antibiotics to complete treatment for possible pyelonephritis. Recommended to follow-up with gastroenterology setting the outpatient setting for further workup of her dysphagia. - Time Spent with Patient Total time spent providing and/or coordinating discharge services: Time spent: Greater than 30 minutes (35) - Discharge Medications Prescriptions: New Amoxicillin/Clavulanate [Augmentin] 875 mg PO BID 10 Days #20 tablet HYDROcodone/Acet 5/325 mg [Jackson 5-325 mg] 1 tab PO Q6H PRN 5 Days #10 tab PRN Reason: Pain Lactobacillus Acidophilus [Acidophilus] 1 each PO BID 10 Days #20 tab.chew Continue metFORMIN [Glucophage] 1,000 mg PO BIDWM Etonogestrel [Nexplanon] 68 mg SQ AD clonazePAM [Klonopin] 0.5 mg PO HS Omeprazole [PriLOSEC] 40 mg PO DAILY Flecainide 100 mg PO BID Dabigatran Etexilate Mesylate [Pradaxa] 150 mg PO BID Atorvastatin Calcium [Lipitor] 20 mg PO HS traZODone [TraZODone] 50 - 100 mg PO HS PRN PRN Reason: Sleep Lisinopril [Zestril] 5 mg PO DAILY tablet Albuterol Sulfate [Ventolin Hfa] 2 puff IH Q4H PRN PRN Reason: Shortness Of Breath Acetaminophen [Tylenol] 500 mg PO Q6HR PRN #20 tablet PRN Reason: Pain Amitriptyline [Elavil] 50 mg PO HS Insulin Glargine,Hum.rec.anlog [Basaglar Kwikpen U-100] 50 units SQ BID Tizanidine HCl 4 mg PO BID PRN PRN Reason: MUSCLE SPASMS FLUoxetine HCl [Prozac] 40 mg PO DAILY Aspirin [Lo-Dose Aspirin EC] 81 mg PO DAILY Magnesium Oxide [Magnesium] 400 mg PO BID Metoprolol [Lopressor] 25 mg PO BID Potassium Chloride [Klor-Con 10] 10 meq PO DAILY Home Medications: Etonogestrel [Nexplanon] 68 mg SQ AD 10/26/15 [History] metFORMIN [Glucophage] 1,000 mg PO BIDWM 04/13/16 [History] clonazePAM [Klonopin] 0.5 mg PO HS 03/04/17 [History] Dabigatran Etexilate Mesylate [Pradaxa] 150 mg PO BID 05/12/17 [History] Flecainide 100 mg PO BID 05/12/17 [History] Omeprazole [PriLOSEC] 40 mg PO DAILY 05/12/17 [History] Atorvastatin Calcium [Lipitor] 20 mg PO HS 06/03/17 [History] traZODone [TraZODone] 50 - 100 mg PO HS PRN 06/03/17 [History] Lisinopril [Zestril] 5 mg PO DAILY tablet 06/20/17 [Rx] Albuterol Sulfate [Ventolin Hfa] 2 puff IH Q4H PRN 07/09/17 [History] Acetaminophen [Tylenol] 500 mg PO Q6HR PRN #20 tablet 09/09/17 [Rx] Amitriptyline [Elavil] 50 mg PO HS 11/18/17 [History] Insulin Glargine,Hum.rec.anlog [Basaglar Kwikpen U-100] 50 units SQ BID 11/18/17 [History] Tizanidine HCl 4 mg PO BID PRN 11/18/17 [History] FLUoxetine HCl [Prozac] 40 mg PO DAILY 10/16/18 [History] Aspirin [Lo-Dose Aspirin EC] 81 mg PO DAILY 10/17/18 [History] Magnesium Oxide [Magnesium] 400 mg PO BID 10/17/18 [History] Metoprolol [Lopressor] 25 mg PO BID 10/17/18 [History] Potassium Chloride [Klor-Con 10] 10 meq PO DAILY 10/17/18 [History] Amoxicillin/Clavulanate [Augmentin] 875 mg PO BID 10 Days #20 tablet 10/19/18 [Rx] HYDROcodone/Acet 5/325 mg [Jackson 5-325 mg] 1 tab PO Q6H PRN 5 Days #10 tab 10/19/18 [Rx] Lactobacillus Acidophilus [Acidophilus] 1 each PO BID 10 Days #20 tab.chew 0 10/19/18 [Rx] Allergies/Adverse Reactions: Allergy/AdvReac Type Severity Reaction Status Date / Time No Known Allergies Allergy Verified 10/17/18 09:08 Date of admission: 10/16/18 09:22 Primary care physician: Joanne Paez - Constitutional Vitals: Temp Pulse Resp BP Pulse Ox 98.1 F 74 17 155/89 91 10/19/18 07:57 10/19/18 07:57 10/19/18 07:57 10/19/18 07:57 10/19/18 07:57 Exam: Vitals: reviewed General: Alert and oriented x4. In no acute distress. Cardiovascular: Irregularly irregular, normal S1 & S2, no rubs, murmurs or gallops. Lungs: CTA b/l, no wheezes or crackles. Abdomen: Obese, soft, non-tender, no rigidity. CVA tenderness b/l. NABS in all 4 quadrants Extremities: No deformity, no edema Neurological: Normal cognition Rest of the physical exam is non contributory - Patient Status Disposition: Home, Self-Care Condition: Good Functional capacity at discharge: independent ambulation Overall status at discharge: patient is progressing back to baseline - Discharge Instructions Follow Up With: Joanne Paez MD [Primary Care Provider] - - Diet and Activity Activity: resume usual activities as tolerated Diet: advance to your usual diet (regular solids and thin liquids), other
[2018-10-19] MEDS: Insulin LISPRO 300 UNITS/3 ML VIAL SQ SCH ×2 (08:43→08:44)
[2018-10-19] MEDS: Insulin DETEMIR 100 UNIT/ML X5UNITS SQ SCH (08:43)
--- NOTE | 2018-10-21 15:40 | Electrocardiograph Report ---
[address] [address] Test Date: 2018-10-16 Pat Name: Christie Jacome Department: [id number] Room: 3B Gender: F Audiology Technician: : 1965 Requested By: Rafal Castro Order Number: [id number] Reading MD: eJwell Shah Measurements Intervals [place] Rate: 97 P: 62 WV: 147 QRS: 18 QRSD: 97 T: 17 QT: 360 QTc: 458 Interpretive Statements Sinus rhythm Electronically Signed On 10-21-2018 15:38:41 EDT by Jewell Shah
== END 2018-10-19 11:12 | disposition home or self-care (01) ==
LOC: 2SOUTHHOLD 04:24 → EMEROOARM 04:24 → 2SOUTHHOLD 11:16 → 3BNU 10-18 14:34
PROVIDERS: ADMIT Internal Medicine Nephrology; ATTEND Internal Medicine

== ENCOUNTER 2018-12-23 17:17 | Inpatient (IN) ==
[2018-12-23 18:03] LABS: Basophils % 0.3 %; Eosinophils # 0.1 K/mcL (0.0-0.6); Eosinophils % 1.2 %; Hematocrit 41.1 % (35.3-44.9); Hemoglobin 13.6 g/dL (11.5-15.4); Immature Granulocytes % 0.2 % (0-4); Lymphocytes # 1.4 K/mcL (0.6-4.6); Lymphocytes % 23.6 %; Mean Corpuscular HGB Conc 33.1 g/dL (31.6-35.5); Mean Corpuscular Hemoglobin 27.8 pg (28.0-33.3); Mean Platelet Volume 10.5 fL (9.4-12.4); Monocytes # 0.3 K/mcL (0.0-1.3); Monocytes % 5.1 %; Neutrophils # 4.2 K/mcL (1.6-8.9); Platelet Count 245 K/mcL (140-400); Red Blood Count 4.89 M/mcL (3.82-4.97); Red Cell Distribution Width 13.3 % (11.5-14.5); Segmented Neutrophils % 69.6 %
--- NOTE | 2018-12-23 18:27 | Emergency Department Note ---
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 Patient does have history of TIA, stroke does have chronic weakness of the left side with says it got worse. Said last and was normal was yesterday evening. Were over 24 hours last time she was simply normal. The said the weakness has gotten a little bit better. She is having chest pain mainly located in the right side also having radiation up into her left jaw. Says it is 6 out of 10. Says she has felt weak and tired all day. She has not felt nauseous or had any vomiting. She is describing the pain as 6 out of 10 dull throbbing ache. Otherwise has no other complaints at this time. She is never had any blood clots she is currently on a blood thinner not Coumadin. Otherwise has no other complaints. Severity scale (1-10): 9 - Related Data Home Medications Medication Instructions Recorded Confirmed Dabigatran Etexilate Mesylate 150 mg PO BID 05/12/17 12/23/18 [Pradaxa] Flecainide 100 mg PO BID 05/12/17 12/23/18 Omeprazole [PriLOSEC] 40 mg PO DAILY 05/12/17 12/23/18 Atorvastatin Calcium [Lipitor] 20 mg PO HS 06/03/17 12/23/18 traZODone [TraZODone] 50 mg PO HS PRN 06/03/17 12/23/18 Albuterol Sulfate [Ventolin Hfa] 2 puff IH Q4H PRN 07/09/17 12/23/18 Amitriptyline [Elavil] 50 mg PO HS 11/18/17 12/23/18 Insulin Glargine,Hum.rec.anlog 50 units SQ BID 11/18/17 12/23/18 [Basaglishmael Choudhurypen U-100] FLUoxetine HCl [Prozac] 40 mg PO DAILY 10/16/18 12/23/18 Aspirin [Lo-Dose Aspirin EC] 81 mg PO DAILY 10/17/18 12/23/18 Metoprolol [Lopressor] 25 mg PO BID 10/17/18 12/23/18 Previous Rx's Medication Instructions Recorded Lisinopril [Zestril] 5 mg PO DAILY tablet 06/20/17 Acetaminophen [Tylenol] 500 mg PO Q6HR PRN #20 tablet 09/09/17 Allergies Allergy/AdvReac Type Severity Reaction Status Date / Time No Known Allergies Allergy Verified 10/17/18 09:08 All systems ED: reviewed and negative except as stated. Review of Systems: As Per HPI Chest Pain PMH - Past Medical History Medical history: Reports: atrial fibrillation, CHF, COPD, coronary artery disea se, CVA, diabetes, hyperlipidemia, hypertension, myocardial infarction, renal disease, TIA, other Surgical history: Reports: , cholecystectomy Psychiatric history: Reports: anxiety, depression, prior suicide attempt, previous psychiatric hospitalization GOLF BALL MOLDER history: Reports: no GOLF BALL MOLDER history - Social History Smoking Status: Never smoker Alcohol use: Reports: occasionally Drug use: Reports: none Physical Exam - General Limitations: no limitations General appearance: alert, in no apparent distress - Head Head exam: atraumatic, normocephalic, normal inspection - Eye Eye exam: Present: normal appearance, PERRL, EOMI - ENT ENT exam: normal exam, normal oropharynx, mucous membranes moist - Neck Neck exam: Present: normal inspection, full ROM, trachea midline - Chest Chest inspection: Present: normal inspection, symmetric chest wall rise - Respiratory Respiratory exam: Present: normal lung sounds bilaterally. Absent: respiratory distress, wheezes, stridor, accessory muscle use - Cardiovascular Cardiovascular exam: Present: regular rate, normal rhythm, normal heart sounds - Abdominal Exam Abdominal exam: Present: soft, Non-Tender. Absent: tenderness, distention, guarding, rebound, rigidity - Extremities Exam Extremities exam: Present: normal inspection, full ROM. Absent: tenderness, pedal edema - Back Exam Back exam: Present: normal inspection, full ROM. Absent: tenderness, CVA tenderness (R), CVA tenderness (L) - Neurological Exam Neurological exam: Present: alert, oriented X3 - Expanded Neurological Exam Patient oriented to: Present: person, place, time Speech: Present: fluid speech Cranial nerves: EOM function (II, III, IV, ): Normal, facial sensation (V): Normal, facial palsy (VII): Normal, spinal accessory function (XI): Normal, tongue deviation (XII): Normal Cerebellar function: finger to nose: Normal, heel to adams: Normal Cerebellar function: normal gait Motor strength - LUE: 4/5 Motor strength - RUE: 4/5 Motor strength - LLE: 4/5 Motor strength - RLE: 4/5 Upper motor neuron exam: alberto neglect: Absent bilaterally, pronator drift: Absent bilaterally Sensory exam upper extremity: light touch: Normal Sensory exam lower extremity: light touch: Normal Coma Scale Eye Opening: Spontaneous Coma Scale Motor Response: Obeys Commands Coma Scale Verbal Response: Oriented Coma Scale Total: 15 - Skin Skin exam: Present: warm, dry, intact, normal color Course Course Narrative: We have basic chest pain work up including CBC BMP troponin EKG chest x-ray. Patient received aspirin through via EMS. We will use CT head as patient is having this weakness. She has had the window so stroke alert was not called. Patient's NIH was 0. Disposition is pending at this time. We will give patient nitroglycerin for her pain. Vital Signs Temperature 97.8 F 12/23/18 17:19 Pulse Rate 100 12/23/18 17:19 Respiratory Rate 18 12/23/18 17:19 Blood Pressure 145/79 12/23/18 17:19 O2 Sat by Pulse Oximetry 99 12/23/18 17:19 Temperature 97.8 F 12/23/18 17:19 Pulse Rate 89 12/23/18 20:07 Respiratory Rate 17 12/23/18 20:07 Blood Pressure 134/95 12/23/18 20:07 O2 Sat by Pulse Oximetry 99 12/23/18 20:07 Oxygen Delivery Oxygen Delivery Room Air Chest Pain - MDM Narrative Medical decision making narrative: 53-year-old female presented to the emergency department with chest pain as well as left sided weakness. NIH was 0. Her heart score was mildly elevated. Due to her history and elevated heart score as well as this new weakness I felt patient needed to be admitted for further evaluation. Patient agreed. CT came back no acute findings. Patient is outside the stroke alert as this happened approximately 24 hours prior to her arrival. Troponin was negative EKG had no acute changes. Patient had elevated blood sugar such that a hard time controlling them. Patient is not in DKA there is no anion gap. I did replace patient's potassium here in the emergency department. Patient's pain was nearly gone after receiving nitroglycerin she received aspirin via EMS. Patient will be admitted to the hospitalist. I spoke with Dr. White who agreed to admit the patient to their service. Patient is admitted in stable condition. Chest X-Ray 12/23/18 17:22 IMPRESSION: No acute process. D/ / Sam Banuelos MD / Sam Banuelos MD Interpreting Provider: Sam Banuelos MD Head CT 12/23/18 17:59 IMPRESSION: 1. No acute intracranial abnormality. 2. Mild left maxillary sinus disease. Chronic bilateral mastoid effusions and right middle ear opacification. D/ / Jer Perez MD / Jer Perez MD Interpreting Provider: Jer Perez MD - Medical Records Medical records reviewed: Yes I reviewed the patient's medical records. - Lab Data Lab results reviewed: Yes I reviewed the patient's lab results. Result diagrams: 12/23/18 17:41 12/23/18 17:41 Lab Results 12/23/18 12/23/18 12/23/18 Range/Units 17:41 17:41 17:41 WBC 6.0 (4.3-11.1) K/mcL RBC 4.89 (3.82-4.97) M/mcL Hgb 13.6 (11.5-15.4) g/dL Hct 41.1 (35.3-44.9) % MCV 84.0 (83.0-100.0) fL MCH 27.8 L (28.0-33.3) pg MCHC 33.1 (31.6-35.5) g/dL RDW 13.3 (11.5-14.5) % Plt Count 245 (140-400) K/mcL MPV 10.5 (9.4-12.4) fL Immature Gran % 0.2 (0-4) % Seg Neutrophils % 69.6 % Lymphocytes % 23.6 % Monocytes % 5.1 % Eosinophils % 1.2 % Basophils % 0.3 % Neutrophils # 4.2 (1.6-8.9) K/mcL Lymphocytes # 1.4 (0.6-4.6) K/mcL Monocytes # 0.3 (0.0-1.3) K/mcL Eosinophils # 0.1 (0.0-0.6) K/mcL Basophils # 0.0 (0.0-0.2) K/mcL D-Dimer 311 (0-500) ng/mLFEU Sodium 138 (136-145) mEq/L Potassium 3.2 L (3.5-5.1) mEq/L Chloride 104 (98-107) mEq/L Carbon Dioxide 21 L (23-29) mEq/L BUN 9 (6-20) mg/dL Creatinine 0.49 L (0.60-1.20) mg/dL Est GFR ( Amer) > 60 (> 60) Est GFR (Non-Af Amer) > 60 (> 60) BUN/Creatinine Ratio 18 (6-26) Glucose 423 H (70-105) mg/dL Calculated Osmolality 303 H (280-300) Calcium 9.3 (8.6-10.3) mg/dL Troponin I < 0.03 (< 0.04) ng/mL - Radiology Data Radiology results reviewed: Yes I reviewed the patient's radiology results. - EKG Data EKG attestation: Yes I reviewed and interpreted this EKG. EKG results narrative: EKG done at 1724 review myself the attending shows sinus tachycardia rate of [address] elevation no ST changes no T-wave hanges no othe signs of scheia. no signs f hypertrophy, heart strain, heart block there are PVCs no WPW/Brugada/HOCM Heart Score - Score History: Moderately Suspicious EKG: Non Specific repolarisation Disturbance Age: 45-65 Risk Factors: Equal/Greater than 3 risk factor or history of atherosclerotic disease Troponin: Less than normal limit HEART Score Total: 5
[2018-12-23 18:40] LABS: BUN/Creatinine Ratio 18 (6-26); Blood Urea Nitrogen 9 mg/dL (6-20); Calcium 9.3 mg/dL (8.6-10.3); Carbon Dioxide 21 mEq/L (23-29); Chloride 104 mEq/L (98-107); Glucose 423 mg/dL (70-105); Osmolality,Calculated 303 (280-300); Potassium 3.2 mEq/L (3.5-5.1); Sodium 138 mEq/L (136-145); eGFR For African Americans > 60 (> 60); eGFR For Non-African Americans > 60 (> 60)
[2018-12-23 18:41] LABS: Troponin I < 0.03 ng/mL (< 0.04)
--- NOTE | 2018-12-23 19:23 | Emergency Department Note ---
Disposition Clinical Impression: ACS (acute coronary syndrome), TIA (transient ischemic attack) Disposition: Admitted As Inpatient Forms: ED Satisfaction Letter Time of Disposition: 19:24 General Adult HPI - General Chief complaint: ED Chest Pain Stated complaint: chest pain Time Seen by Provider: 12/23/18 17:20 Source: patient, EMS Mode of arrival: ambulatory Limitations: no limitations Nursing Notes Reviewed: Yes Vital Signs Reviewed: Yes - History of Present Illness HPI Narrative: Attestation note: Patient was seen with the emergency medicine resident/nurse practitioner/physician hospital clinic assistant/transitional resident/medical student: Dr. Juwan Doyle. I was present for the significant portions of the performance and interpretation of procedures and EKGs. I have personally performed a face to face evaluation on this patient. I have reviewed and agree with history and physical examination patient management and disposition. Briefly the salient points of the case are as follows: 53-year-old female was in with chest pain. Heart score of 6. Patient has a history of stroke. Worsening left-sided weakness although NIH's 0. His stroke was on the left side. Patient getting a head CT initially workup should EKG and troponin otherwise negative last known well yesterday. No stroke alert is required. Plan is head CT and the patient for ACS and TIA versus CVA. Providing 30 minutes critical care service for this patient. Disposition pending Pain Scale: 9 - Related Data Home Medications Medication Instructions Recorded Confirmed Dabigatran Etexilate Mesylate 150 mg PO BID 05/12/17 12/23/18 [Pradaxa] Flecainide 100 mg PO BID 05/12/17 12/23/18 Omeprazole [PriLOSEC] 40 mg PO DAILY 05/12/17 12/23/18 Atorvastatin Calcium [Lipitor] 20 mg PO HS 06/03/17 12/23/18 traZODone [TraZODone] 50 mg PO HS PRN 06/03/17 12/23/18 Albuterol Sulfate [Ventolin Hfa] 2 puff IH Q4H PRN 07/09/17 12/23/18 Amitriptyline [Elavil] 50 mg PO HS 11/18/17 12/23/18 Insulin Glargine,Hum.rec.anlog 50 units SQ BID 11/18/17 12/23/18 [Basaglar Kwikpen U-100] FLUoxetine HCl [Prozac] 40 mg PO DAILY 04/04/19 06/11/19 Aspirin [Lo-Dose Aspirin EC] 81 mg PO DAILY 10/17/18 12/23/18 Metoprolol [Lopressor] 25 mg PO BID 10/17/18 12/23/18 Previous Rx's Medication Instructions Recorded Lisinopril [Zestril] 5 mg PO DAILY tablet 06/20/17 Acetaminophen [Tylenol] 500 mg PO Q6HR PRN #20 tablet 09/09/17 Allergies Allergy/AdvReac Type Severity Reaction Status Date / Time No Known Allergies Allergy Verified 10/17/18 09:08 Past Medical History - Past Medical History Medical history: Reports: atrial fibrillation, CHF, COPD, coronary artery disease, CVA, diabetes, hyperlipidemia, hypertension, myocardial infarction, renal disease, TIA, other Surgical history: Reports: , cholecystectomy Psychiatric history: Reports: anxiety, depression, prior suicide attempt, previous psychiatric hospitalization COMPUTER TECH history: Reports: no COMPUTER TECH history - Social History Smoking Status: Never smoker Smokeless Tobacco Status: No Alcohol use: Reports: occasionally Drug use: Reports: none Physical Exam - General Limitations: no limitations General appearance: alert, in no apparent distress Course Vital Signs Temperature 97.8 F 12/23/18 17:19 Pulse Rate 100 12/23/18 17:19 Respiratory Rate 18 12/23/18 17:19 Blood Pressure 145/79 12/23/18 17:19 O2 Sat by Pulse Oximetry 99 12/23/18 17:19 Temperature 97.8 F 12/23/18 17:19 Pulse Rate 89 12/23/18 19:02 Respiratory Rate 16 12/23/18 19:02 Blood Pressure 148/82 12/23/18 19:02 O2 Sat by Pulse Oximetry 100 12/23/18 19:02 Oxygen Delivery Oxygen Delivery Room Air Medical Decision Making - Lab Data Result diagrams: 12/23/18 17:41 12/23/18 17:41 Lab Results 12/23/18 12/23/18 12/23/18 Range/Units 17:41 17:41 17:41 WBC 6.0 (4.3-11.1) K/mcL RBC 4.89 (3.82-4.97) M/mcL Hgb 13.6 (11.5-15.4) g/dL Hct 41.1 (35.3-44.9) % MCV 84.0 (83.0-100.0) fL MCH 27.8 L (28.0-33.3) pg MCHC 33.1 (31.6-35.5) g/dL RDW 13.3 (11.5-14.5) % Plt Count 245 (140-400) K/mcL MPV 10.5 (9.4-12.4) fL Immature Gran % 0.2 (0-4) % Seg Neutrophils % 69.6 % Lymphocytes % 23.6 % Monocytes % 5.1 % Eosinophils % 1.2 % Basophils % 0.3 % Neutrophils # 4.2 (1.6-8.9) K/mcL Lymphocytes # 1.4 (0.6-4.6) K/mcL Monocytes # 0.3 (0.0-1.3) K/mcL Eosinophils # 0.1 (0.0-0.6) K/mcL Basophils # 0.0 (0.0-0.2) K/mcL D-Dimer 311 (0-500) ng/mLFEU Sodium 138 (136-145) mEq/L Potassium 3.2 L (3.5-5.1) mEq/L Chloride 104 (98-107) mEq/L Carbon Dioxide 21 L (23-29) mEq/L BUN 9 (6-20) mg/dL Creatinine 0.49 L (0.60-1.20) mg/dL Est GFR ( Amer) > 60 (> 60) Est GFR (Non-Af Amer) > 60 (> 60) BUN/Creatinine Ratio 18 (6-26) Glucose 423 H (70-105) mg/dL Calculated Osmolality 303 H (280-300) Calcium 9.3 (8.6-10.3) mg/dL Troponin I < 0.03 (< 0.04) ng/mL
[2018-12-23] MEDS: Potassium Chloride Elixir 20 MEQ/15 ML UDC PO ONE ×2 (20:05→20:14)
[2018-12-23] MEDS ORDERED: *HR* Morphine 2 MG/ML SYRINGE IVP ONE (21:06)
[2018-12-23] MEDS ORDERED: Naloxone 0.4 MG/ML INJ IVP PRN (21:53)
[2018-12-23] MEDS ORDERED: Acetaminophen 325 MG TABLET PO PRN (21:53)
[2018-12-23] MEDS ORDERED: Dextrose Gel 15 GM/37.5 ML TUBE PO PRN ×2 (21:57)
[2018-12-23] MEDS ORDERED: *HR* Dextrose 50 % in Water (Syg) 50 ML SYRINGE IVP PRN (21:57)
[2018-12-23] MEDS ORDERED: D5% in Water 1,000 ML IVC PRN (21:57)
--- NOTE | 2018-12-23 22:11 | Internal Med History&Physical ---
Date of Encounter: 12/23/18 Time of Encounter: 22:05 Internal Medicine - H&P: HPI Chief complaint: Chest pain Admitted From: Emergency Dept Plans for Post Hospital Care: Home History of present illness: Ms. Jacome is a 53 year old female with history of poorly controlled type 2 diabetes, atrial fibrillation presents with chest pain, left arm numbness. Patient states that her symptoms candidate. She developed sharp stabbing chest pain in the center of her chest. This was associated left arm numbness. She states the pain radiated into her back. She states upon arrival the sharp pain has resolved and she now reports a dull ache. She states this was similar symptoms that led to her admission approximately 6 weeks ago. She also states that she feels foggy and feels like she is not thinking right. She said she has been checking her blood sugars at home and they have been in the 500s. She also states that when she stands up she feels dizzy and felt like she was in A. fib earlier in the day but she is not in it now. She denies any fever, chills, shortness of breath, abdominal pain, nausea, vomiting. Discussed with patient who wishes to be full code. Past Med Surg Social Fam HX - Past Medical History Medical history: atrial fibrillation, CHF, COPD, coronary artery disease, CVA, diabetes, hyperlipidemia, hypertension, myocardial infarction, renal disease, TIA, other Additional medical history: c-diff, cervialgia, Loop recorder, cervico-occipital neurolgia-cerebral hemorrhage,. anemia, spasmadic torticollis. ANTOINETTE. respiratory failure. dydfunctional uterine bleed, obesity, conversion disorder, left sided weakness from previous CVA Psychiatric history: anxiety, depression, prior suicide attempt, previous psychiatric hospitalization - Past Surgical History Surgical History: , cholecystectomy Additional surgical history: loop recorder and cardiac ablasion - Social History Smoking Status: Never smoker Smokeless Tobacco Status: No Alcohol use: occasionally Drug use: none - Family History Mother Living Status: Hx Family Cardiac Disorders: Yes Hx Family Respiratory Disorders: Yes (copd) Hx Family Cancer: Yes (lung cancer) Hx Family Endocrine Disorder: Yes (DM type II) Father Adopted: No Family Member Ethnicity: Non- Living Status: Hx Family Cardiac Disorders: Yes Hx Family Respiratory Disorders: Yes Hx Family Cancer: Yes (LUNG) Hx Family GI Disorders: No Hx Family Endocrine Disorder: Yes (DM) Hx Family Neuromuscular Disorders: No Hx Family Neurologic Disorders: No Hx Family HEENT Disorders: No Hx Family Autoimmune Disorders: No Internal Medicine - H&P: Meds Dabigatran Etexilate Mesylate [Pradaxa] 150 mg PO BID 05/12/17 [History] Flecainide 100 mg PO BID 05/12/17 [History] Omeprazole [PriLOSEC] 40 mg PO DAILY 05/12/17 [History] Atorvastatin Calcium [Lipitor] 20 mg PO HS 06/03/17 [History] Lisinopril [Zestril] 5 mg PO DAILY tablet 06/20/17 [Rx] Albuterol Sulfate [Ventolin Hfa] 2 puff IH Q4H PRN 07/09/17 [History] Acetaminophen [Tylenol] 500 mg PO Q6HR PRN #20 tablet 09/09/17 [Rx] Insulin Glargine,Hum.rec.anlog [Basaglar Kwikpen U-100] 50 units SQ BID 11/18/17 [History] FLUoxetine HCl [Prozac] 40 mg PO DAILY 10/16/18 [History] Aspirin [Lo-Dose Aspirin EC] 81 mg PO DAILY 10/17/18 [History] Metoprolol [Lopressor] 25 mg PO BID 10/17/18 [History] Gabapentin [Neurontin] 300 mg PO HS 12/23/18 [History] Metformin HCl [Glucophage] 1,000 mg PO BID 12/23/18 [History] clonazePAM [Clonazepam] 0.5 mg PO DAILY PRN 12/23/18 [History] Allergy/AdvReac Type Severity Reaction Status Date / Time No Known Allergies Allergy Verified 10/17/18 09:08 All Systems PM: A 10-system review of systems was performed and is negative for pertinent findings except as documented above in the HPI. Review of systems: 10 point review of systems was obtained and negative other than stated below: - Constitutional Constitutional: no chills, no fever(s) - EENT Eyes: blurry vision (Chronic) - Cardiovascular Cardiovascular ROS IM: chest pain, irregular heart rhythm, lightheadedness, no dyspnea, no syncope - Respiratory Respiratory: no cough, no dyspnea - Gastrointestinal Gastrointestinal: no abdominal pain, no nausea, no vomiting - Neurological Neurological ROS: confusion, dizziness, numbness, no focal weakness - Constitutional Vitals: Temp Pulse Resp BP Pulse Ox 97.8 F 76 18 129/77 100 12/23/18 17:19 12/23/18 22:01 12/23/18 20:59 12/23/18 22:01 12/23/18 22:01 General appearance: Present: A&O X 3, no acute distress Exam: . - Head Head exam: Present: atraumatic, normal inspection, normocephalic - Eye Eye exam: Present: EOMI, PERRL - ENT ENT exam: Present: mucous membranes moist, normal oropharynx - Neck Neck exam general surgery: Present: full ROM. Absent: tenderness - Respiratory Respiratory exam: Present: CTAB. Absent: rales, rhonchi, wheezes - Cardiovascular Cardiovascular exam: Present: RRR. Absent: gallop, rubs, systolic murmur - GI/Abdominal GI/Abdominal exam: Present: normal bowel sounds, soft. Absent: distended, tenderness - Extremities Exam Extremities exam: Present: full ROM. Absent: pedal edema, tenderness - Neurological Exam Neurological exam: Present: alert, CN II-XII intact, oriented X3, no focal deficits, strengths equal and symetr throughout. Absent: facial droop, speech deficit - Psychiatric Psychiatric exam: Present: normal affect, normal mood - Skin Skin exam: Present: dry, intact, warm Internal Med - H&P Results - Labs CBC & Chem 7: 12/23/18 17:41 12/23/18 17:41 Labs: Short CBC 12/23/18 Range/Units 17:41 WBC 6.0 (4.3-11.1) K/mcL Hgb 13.6 (11.5-15.4) g/dL Hct 41.1 (35.3-44.9) % Plt Count 245 (140-400) K/mcL Neutrophils # 4.2 (1.6-8.9) K/mcL BMP 12/23/18 17:41 Sodium 138 Potassium 3.2 L Chloride 104 Carbon Dioxide 21 L BUN 9 Creatinine 0.49 L Glucose 423 H Calcium 9.3 Cardiac Enzymes 12/23/18 Range/Units 17:41 Troponin I < 0.03 (< 0.04) ng/mL - Impressions ITS Impressions Chest X-Ray 06/11/19 17:22 IMPRESSION: No acute process. D/ / Sam Banuelos MD / Sam Banuelos MD Interpreting Provider: Sam Banuelos MD Head CT 12/23/18 17:59 IMPRESSION: 1. No acute intracranial abnormality. 2. Mild left maxillary sinus disease. Chronic bilateral mastoid effusions and right middle ear opacification. D/ / Jer Perez MD / Jer Perez MD Interpreting Provider: Jer Perez MD - Assessment and Plan (1) Chest pain Current Visit: No Status: Acute Assessment and plan: Patient presents with chest pain. EKG reviewed and shows no ischemic changes with normal sinus rhythm. Troponin is negative. Review of previous admission shows that the patient had stress test on 11/08/2018 that was negative for any ischemia or infarct. Because of this we will not repeat stress test as it is highly unlikely that she has developed new blockage since then. We will trend troponins. She does state that she has had left heart catheterizations before but has had blockages but is never had stents, this may be related to small vessel disease. 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 Depending on her symptomatic response she may benefit from a long-acting nitrate to help control her pain. If troponins elevate her pain significantly worsens and consider cardiology consult. Qualifiers: Chest pain type: other chest pain Qualified Code(s): R07.89 - Other chest pain; R07.8 - Other chest pain (2) Type 2 diabetes mellitus Current Visit: Yes Status: Chronic Assessment and plan: Patient has poorly controlled diabetes with a significantly elevated blood glucose on arrival at [facility]. She states is been running in the 500s at home. Xu BENZ. This is likely causing some of her lightheaded symptoms. Increase her basal insulin to 60 units twice a day and high-dose sliding scale. Continue monitor blood sugars and adjust insulin regimen as necessary. Recent hemoglobin A1c in October was reviewed and showed poor control 11.3. 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 Patient received 40 mEq by mouth in the emergen cy department, we will give another 40 mEq is evening. Recheck potassium and magnesium in the morning and continue oral replacement as necessary. (4) Atrial fibrillation Current Visit: Yes Status: Acute Assessment and plan: Currently normal sinus rhythm. Per the patient's report she is on Dobutrex and flecainide for her heart however the pharmacy is made multiple times to confirm this with her outpatient pharmacy and it appears she has not filled these. Will hold for right now and we will attempt to obtain records, patient may require cardiology consult medication management. Qualifiers: Atrial fibrillation type: paroxysmal Qualified Code(s): I48.0 - Paroxysmal atrial fibrillation (5) DVT prophylaxis Current Visit: No Status: Acute Assessment and plan: Heparin 5000 units subcutaneous twice a day - Time Spent With Patient Total time spent is greater than 50% in coordination of care (as documented) at patient's floor/unit and/or counseling patient:
[2018-12-23] MEDS: clonazePAM 0.5 MG TABLET PO PRN (23:09)
[2018-12-23] MEDS: *HR* OxyCODONE Immed Rel 5 MG TABLET PO PRN (23:09)
[2018-12-23] MEDS: Insulin LISPRO 300 UNITS/3 ML VIAL SQ SCH (23:10)
[2018-12-24 00:40] LABS: Basophils % 0.4 %; Eosinophils # 0.1 K/mcL (0.0-0.6); Eosinophils % 1.5 %; Hematocrit 38.6 % (35.3-44.9); Hemoglobin 12.7 g/dL (11.5-15.4); Immature Granulocytes % 0.4 % (0-4); Lymphocytes # 1.9 K/mcL (0.6-4.6); Lymphocytes % 35.8 %; Mean Corpuscular HGB Conc 32.9 g/dL (31.6-35.5); Mean Platelet Volume 10.3 fL (9.4-12.4); Monocytes # 0.3 K/mcL (0.0-1.3); Monocytes % 5.8 %; Platelet Count 245 K/mcL (140-400); Red Blood Count 4.54 M/mcL (3.82-4.97); Red Cell Distribution Width 13.4 % (11.5-14.5); Segmented Neutrophils % 56.1 %; White Blood Count 5.3 K/mcL (4.3-11.1)
[2018-12-24 00:59] LABS: BUN/Creatinine Ratio 19 (6-26); Blood Urea Nitrogen 9 mg/dL (6-20); Calcium 8.9 mg/dL (8.6-10.3); Carbon Dioxide 24 mEq/L (23-29); Chloride 105 mEq/L (98-107); Chol/HDL Ratio 6.2 (0-4.9); Cholesterol 222 mg/dL (< 200); Glucose 265 mg/dL (70-105); HDL Cholesterol 36 mg/dL (40-59); LDL Cholesterol,Calculated 147 mg/dL (0-99); Magnesium 1.6 mg/dL (1.6-2.6); Osmolality,Calculated 296 (280-300); Potassium 3.1 mEq/L (3.5-5.1); Sodium 139 mEq/L (136-145); Triglycerides 193 mg/dL (< 150); eGFR For African Americans > 60 (> 60); eGFR For Non-African Americans > 60 (> 60)
[2018-12-24] MEDS ORDERED: *HR* Heparin 5,000 UNIT/ML VIAL SQ SCH (06:00)
[2018-12-24] MEDS: Insulin LISPRO 300 UNITS/3 ML VIAL SQ SCH ×4 (07:57→21:06)
[2018-12-24] MEDS: *HR* HYDROcodone/Acet 5/325 mg TABLET PO PRN ×2 (07:57→14:21)
[2018-12-24] MEDS: Aspirin Enteric Coated 81 MG Tablet PO SCH (07:57)
[2018-12-24] MEDS: FLUoxetine 20 MG CAPSULE PO SCH (07:57)
[2018-12-24] MEDS ORDERED: GI Cocktail 40 ML EACH PO ONE (10:01)
[2018-12-24] MEDS: Insulin DETEMIR 100 UNIT/ML X5UNITS SQ SCH ×2 (10:04→20:42)
[2018-12-24 10:37] LABS: Bilirubin,Urine Negative (Negative); Blood,Urine Negative (Negative); Clarity,Urine Cloudy (Clear); Color,Urine Yellow (Yellow); Glucose,Urine (UA) >=1000 mg/dL (Normal); Ketones,Urine Negative (Negative); Leukocyte Esterase,Urine Small (Negative); Nitrite,Urine Negative (Negative); PH,Urine 5.5 pH Units (5.0-8.0); Protein,Urine Negative (Neg-Trace); Specific Gravity,Urine > 1.030 (1.010-1.025); Urobilinogen,Urine Normal (Normal)
[2018-12-24 10:39] LABS: Bacteria,Urine Moderate per hpf (None-Few); Hyaline Casts,Urine Few per lpf (None-Few); Squamous Epithelial Cell,Urine Many per lpf (None-Few); WBC,Urine 50-100 per hpf (0-3)
--- NOTE | 2018-12-24 11:30 | Cardiology Consult Note ---
<Jeremy Maria R - Last Filed: 12/24/18 11:25> Date of Encounter: 12/24/18 Time of Encounter: 11:26 Assessment and Plan (1) Chest pain Current Visit: Yes Status: Acute Chest pain is atypical--since yesterday, no worsening or alleviating factors. Troponins negative x 3. Obtain ECG. [facility] 2011 showed normal coronaries. Nuclear stress test 11/08/18 negative for ischemia or infarct. Gated EF 63%. TTE 11/08/18 EF 60%, mild MR. Will increase BB. On ASA, Statin. Will discuss with Dr. Shah to determine if any further cardiac testing is luis stevens. Qualifiers: Chest pain type: other chest pain Qualified Code(s): R07.89 - Other chest pain; R07.8 - Other chest pain (2) Paroxysmal atrial fibrillation Current Visit: Yes Status: Chronic S/P ablation 09/2015 at [facility]. Loop recorder in place. Flecainide listed on home med list. Reviewed [facility] records and appears this was stopped in 2017. Follows with cardiology at [facility]--Dr. Olson. Anticoagulated on Pradaxa. Pt reports feeling like she was in A-Fib prior to admission. Will interrogate loop recorder. Discussion w patient/family: The assessment and plan as outlined above was discussed with the patient and/or family members who expressed understanding and agreement. All questions were answered. Thank you for involving us in the care of your patient. Please call with any questions. I will discuss all the above with Dr. Shah and make changes as necessary. History of Present Illness Consult date: 12/24/18 Requesting physician: Billy Burden Consult reason: Chest pain Chief complaint: chest pain History of present illness: Ms. Jacome is a 53 year old female Past Med Surg Social Fam HX - Past Medical History Medical history: atrial fibrillation, CHF, COPD, coronary artery disease, CVA, diabetes, hyperlipidemia, hypertension, myocardial infarction, renal disease, TIA, other Additional medical history: c-diff, cervialgia, Loop recorder, cervico-occipital neurolgia-cerebral hemorrhage,. anemia, spasmadic torticollis. ANTOINETTE. respiratory failure. dydfunctional uterine bleed, obesity, conversion disorder, left sided weakness from previous CVA Psychiatric history: anxiety, depression, prior suicide attempt, previous psychiatric hospitalization - Past Surgical History Surgical History: cholecystectomy Additional surgical history: loop recorder and cardiac ablasion - Social History Smoking Status: Never smoker Smokeless Tobacco Status: No Alcohol use: occasionally Drug use: none - Family History Mother Living Status: Hx Family Cardiac Disorders: Yes Hx Family Respiratory Disorders: Yes (copd) Hx Family Cancer: Yes (lung cancer) Hx Family Endocrine Disorder: Yes (DM type II) Father Adopted: No Family Member Ethnicity: Non- Living Status: Hx Family Cardiac Disorders: Yes Hx Family Respiratory Disorders: Yes Hx Family Cancer: Yes (LUNG) Hx Family GI Disorders: No Hx Family Endocrine Disorder: Yes (DM) Hx Family Neuromuscular Disorders: No Hx Family Neurologic Disorders: No Hx Family HEENT Disorders: No Hx Family Autoimmune Disorders: No Medications and Allergies Dabigatran Etexilate Mesylate [Pradaxa] 150 mg PO BID 05/12/17 [History] Flecainide 100 mg PO BID 05/12/17 [History] Omeprazole [PriLOSEC] 40 mg PO DAILY 05/12/17 [History] Atorvastatin Calcium [Lipitor] 20 mg PO HS 06/03/17 [History] Lisinopril [Zestril] 5 mg PO DAILY tablet 06/20/17 [Rx] Albuterol Sulfate [Ventolin Hfa] 2 puff IH Q4H PRN 07/09/17 [History] Acetaminophen [Tylenol] 500 mg PO Q6HR PRN #20 tablet 09/09/17 [Rx] Insulin Glargine,Hum.rec.anlog [Basaglar Kwikpen U-100] 50 units SQ BID 11/18/17 [History] FLUoxetine HCl [Prozac] 40 mg PO DAILY 10/16/18 [History] Aspirin [Lo-Dose Aspirin EC] 81 mg PO DAILY 10/17/18 [History] Metoprolol [Lopressor] 25 mg PO BID 10/17/18 [History] Gabapentin [Neurontin] 300 mg PO HS 12/23/18 [History] Metformin HCl [Glucophage] 1,000 mg PO BID 12/23/18 [History] clonazePAM [Clonazepam] 0.5 mg PO DAILY PRN 12/23/18 [History] Allergy/AdvReac Type Severity Reaction Status Date / Time No Known Allergies Allergy Verified 10/17/18 09:08 All Systems Review: The remainder of the systems were reviewed and are negative Physical Examination Vital Signs, Last 4 Hours Temp Pulse Resp BP Pulse Ox 12/24/18 07:55 98.0 F 75 16 131/67 99 Results 12/24/18 00:24 12/24/18 00:24 Lab Results 12/23/18 12/23/18 12/23/18 17:41 17:41 17:41 WBC 6.0 Hgb 13.6 Hct 41.1 Plt Count 245 D-Dimer 311 Sodium 138 Potassium 3.2 L Chloride 104 Carbon Dioxide 21 L BUN 9 Creatinine 0.49 L Glucose 423 H Calcium 9.3 Magnesium Troponin I < 0.03 12/24/18 12/24/18 12/24/18 00:24 00:24 00:24 WBC 5.3 Hgb 12.7 Hct 38.6 Plt Count 245 D-Dimer Sodium 139 Potassium 3.1 L Chloride 105 Carbon Dioxide 24 BUN 9 Creatinine 0.47 L Glucose 265 H Calcium 8.9 Magnesium 1.6 Troponin I < 0.03 12/24/18 05:34 WBC Hgb Hct Plt Count D-Dimer Sodium Potassium Chloride Carbon Dioxide BUN Creatinine Glucose Calcium Magnesium Troponin I < 0.03 Consult Discharge Plan - Plan Referrals: Joanne Paez MD [Primary Care Provider] - <Jewell Shah - Last Filed: 12/24/18 16:51> Date of Encounter: 12/24/18 - Attending Attestation Patient was seen and evaluated independently by me. Findings, assessment and plan were discussed at length with patient, questions answered. Agree with nurse practitioner's/resident's documentation. Addition as follows, 53 yoCF ho PAF s/p ablation and ILR, on flecainide/BB/pradaxa, CVA, CAD , DM, HLD, COPD, medication noncompliance. P/w months of recurrent palpitations/heart racing with chest discomfort on exertion and at rest, significant decrease of functional status. Neg trop, tele SR no sig events, 11/08/18 TTE EF 60%, 11/08/18 normal SPECT. K 3.1, no ANTOINETTE. VSS, CTA B/L, RR, no LE edema A: Recurrent chest pain associated with palpitations, suspected frequent breakthrough AFib RVR Decreased functional status Medication non-compliance P: ECG ILR interrogation, if frequent breakthrough Afib, EP consult increase BB dose limited Echo for LVEF Jewell Shah MD, PhD Assessment and Plan Discussion w patient/family: The assessment and plan as outlined above was discussed with the patient and/or family members who expressed understanding and agreement. All questions were answered. Thank you for involving us in the care of your patient. Please call with any questions. History of Present Illness History of present illness: Ms. Jacome is a 53 year old female All Systems Review: The remainder of the systems were reviewed and are negative Physical Examination Vital Signs, Last 4 Hours Temp Pulse Resp BP Pulse Ox 12/24/18 15:38 97.7 F 56 16 123/74 99 Results 12/24/18 00:24 12/24/18 00:24 Lab Results 12/23/18 12/23/18 12/23/18 17:41 17:41 17:41 WBC 6.0 Hgb 13.6 Hct 41.1 Plt Count 245 D-Dimer 311 Sodium 138 Potassium 3.2 L Chloride 104 Carbon Dioxide 21 L BUN 9 Creatinine 0.49 L Glucose 423 H Calcium 9.3 Magnesium Troponin I < 0.03 12/24/18 12/24/18 12/24/18 00:24 00:24 00:24 WBC 5.3 Hgb 12.7 Hct 38.6 Plt Count 245 D-Dimer Sodium 139 Potassium 3.1 L Chloride 105 Carbon Dioxide 24 BUN 9 Creatinine 0.47 L Glucose 265 H Calcium 8.9 Magnesium 1.6 Troponin I < 0.03 12/24/18 05:34 WBC Hgb Hct Plt Count D-Dimer Sodium Potassium Chloride Carbon Dioxide BUN Creatinine Glucose Calcium Magnesium Troponin I < 0.03
--- NOTE | 2018-12-24 13:25 | Internal Med Progress Note ---
Hospitalist Progress Note - Encounter Date of Encounter: 12/24/18 Time of Encounter: 10:00 - Subjective Interval History: Ms. Jacome is a 53 year old female with history of poorly controlled type 2 diabetes,HTN, HLD, CAD, and paroxysmal atrial fibrillation who recently had cardiac ablation at [place], presented to ER with chest pain, left arm numbness. She developed sharp stabbing chest pain in the center of her chest. She also c/o heart burn / epigastric pain too. She stated the pain radiated into her back. She had a normal stress test done in October 2018. She does have loop recorded too. She was admitted in the hospital and placed on telemetry monitor. She still c.o chest pain, more like burning type of pain associated with nausea. - Exam Vitals: Temp Pulse Resp BP Pulse Ox 97.4 F L 55 17 96/69 97 12/24/18 11:56 12/24/18 11:56 12/24/18 11:56 12/24/18 11:56 12/24/18 11:56 Exam: Gen: Alert, awake, Oriented to time,place and person Chest: Diminished breath sounds B/L, No wheezing, No crackles, No rales Heart: S1S2+ RRR No murmurs Abd: Soft, NT, BS +, No organomegaly Ext: No edema, pulses are palpable, No calf tenderness Neuro : No acute focal neuro deficits noticed Skin: No rash. - Assessment and Plan (1) Chest pain Current Visit: Yes Status: Acute Assessment and Plan: So far negative trop x 3 No acute ischemic changes on EKG Cont close monitoring cont home meds ASA, Metoprolol and Statin Reviewed her FLP - LDL still significantly elevated consulted cardiology for further evaluation (2) Atrial fibrillation Current Visit: Yes Status: Acute Assessment and Plan: Currently normal sinus rhythm On Loop recorder - interrogated by cardiology Currently on flecainide however she still has PAF EP Cardiology consulted for further eval resumed Pradaxa for anti coag (3) Hypokalemia Current Visit: No Status: Resolved Assessment and Plan: Cont replacing (4) Type 2 diabetes mellitus Current Visit: Yes Status: Chronic Assessment and Plan: on ADA diet on ISS + Levemir (5) DVT prophylaxis Current Visit: No Status: Acute Assessment and Plan: on Pradaxa - Time Spent with Patient Total time spent is greater than 50% in coordination of care (as documented) at patient's floor/unit and/or counseling patient: Internal Medicine: Result - Labs CBC & Chem 7: 12/24/18 00:24 12/24/18 00:24 Labs: Short CBC 12/23/18 12/24/18 Range/Units 17:41 00:24 WBC 6.0 5.3 (4.3-11.1) K/mcL Hgb 13.6 12.7 (11.5-15.4) g/dL Hct 41.1 38.6 (35.3-44.9) % Plt Count 245 245 (140-400) K/mcL Neutrophils # 4.2 3.0 (1.6-8.9) K/mcL BMP 12/23/18 12/24/18 17:41 00:24 Sodium 138 139 Potassium 3.2 L 3.1 L Chloride 104 105 Carbon Dioxide 21 L 24 BUN 9 9 Creatinine 0.49 L 0.47 L Glucose 423 H 265 H Calcium 9.3 8.9 Cardiac Enzymes 12/23/18 12/24/18 12/24/18 Range/Units 17:41 00:24 05:34 Troponin I < 0.03 < 0.03 < 0.03 (< 0.04) ng/mL Urine 12/24/18 Range/Units 10:21 Urine Color Yellow (Yellow) Urine Clarity Cloudy A (Clear) Urine pH 5.5 (5.0-8.0) pH Units Ur Specific [place] > 1.030 H (1.010-1.025) Urine Protein Negative (Neg-Trace) mg/dL Urine Glucose (UA) >=1000 H (Normal) mg/dL - ABG Interpretation ABG results: PT/INR, D-dimer 311 ng/mLFEU (0-500) 12/23/18 17:41 - Impressions Impressions Chest X-Ray 12/23/18 17:22 IMPRESSION: No acute process. D/ / Sam Banuelos MD / Sam Banuelos MD Interpreting Provider: Sam Banuelos MD Head CT 12/23/18 17:59 IMPRESSION: 1. No acute intracranial abnormality. 2. Mild left maxillary sinus disease. Chronic bilateral mastoid effusions and right middle ear opacification. D/ / Jer Perez MD / Jer Perez MD Interpreting Provider: Jer Perez MD Consult Discharge Plan - Plan Referrals: Joanne Paez MD [Primary Care Provider] - __ (1) Chest pain Qualifiers: Chest pain type: other chest pain Qualified Code(s): R07.89 - Other chest pain; R07.8 - Other chest pain (2) Atrial fibrillation Qualifiers: Atrial fibrillation type: paroxysmal Qualified Code(s): I48.0 - Paroxysmal atrial fibrillation (4) Type 2 diabetes mellitus Qualifiers: Diabetes mellitus terminal system operator insulin use: with terminal system operator use Diabetes mellitus complication status: with hyperglycemia Qualified Code(s): E11.65 - Type 2 diabetes mellitus with hyperglycemia; Z79.4 - long term (current) use of insulin
--- NOTE | 2018-12-24 15:28 | Electrophysiology Consult Note ---
<Chapincito Cristobal - Last Filed: 12/24/18 16:12> Date of Encounter: 12/24/18 Time of Encounter: 15:28 Assessment and Plan (1) Paroxysmal atrial fibrillation Status: Acute Loop recorder check reviewed with Dr. Brooks. There was 101 episodes atrial fibrillation. Increased re-occurrences in the past two months. Also seen to have possible atrial fibrillation with abberancy verses NSVT last February. Patient has not followed with her Contract Administration Coordinator for loop recorder check. Noted previous cardiac testing as discussed in HPI. Pt taking flecainide 100 mg BID , reports occasional missed doses, last dose Saturday per patient. Metoprolol recently increased to 50 mg BID. Discussed with Dr. Brooks, recommend stopping flecainide at this point due to possible NSVT while on medication and given recurrent PAF. Will wait 24 hours for continued flecainide wash out and then start Sotolal 80 mg BID. Continue pradaxa for long-term AC. Discussion w patient/family: The assessment and plan as outlined above was discussed with the patient and/or family members who expressed understanding and agreement. All questions were answered. Thank you for involving us in the care of your patient. Please call with any questions. History of Present Illness Consult date: 12/24/18 Requesting physician: Marco Antonio Brooks Consult reason: paroxysmal atrial fibrillation with RVR Chief complaint: palpitations, chest discomfort History of present illness: Ms. Jacome is a 53 year old female with past medical history significant for PAF s/p afib ablation in 2015, on pradaxa for anticoagulation, loop recorder, CVA, COPD, and diabetes. She presented to ED with c/o intermittent chest pain, SOB, and fatigue. States that she was found to be in atrial fibrillation with RVR in the EMS. She has noted increased palpitations and midsternal chest discomfort radiating to her back. She feels her symptoms are the same as she felt with her atrial fibrillation previously. Stress test and echocardiogram was completed in October of this year for similar symptoms. She was evaluated by cardiology during her stay. A loop recorder check was completed and showed frequent PAF over the last two months. She was also noted to have possible NSVT verses afib with abberancy in February 2018. Last device check was January 2017. She reports poor f/u with her dance coach Dr. Olson due to transportation issues. She states she is still taking flecainide, last dose was three days ago due to running out. On my exam she denies chest pain. C/o fatigue and generalized aching. Prior cardiac testing: Stress test October 2018- Negative for ischemia. TTE October 2018- EF 60%, mild MR. [facility] 2011- normal coronaries. Past Med Surg Social Fam HX - Past Medical History Medical history: atrial fibrillation, COPD, CVA, diabetes, hyperlipidemia, hypertension, myocardial infarction, renal disease, TIA, other Additional medical history: c-diff, cervialgia, Loop recorder, cervico-occipital neurolgia-cerebral hemorrhage,. anemia, spasmadic torticollis. ANTOINETTE. re spiratory failure. dydfunctional uterine bleed, obesity, conversion disorder, left sided weakness from previous CVA Psychiatric history: anxiety, depression, prior suicide attempt, previous psychiatric hospitalization - Past Surgical History Surgical History: cholecystectomy Additional surgical history: loop recorder and cardiac ablasion - Social History Smoking Status: Never smoker Smokeless Tobacco Status: No Alcohol use: occasionally Drug use: none - Family History Mother Living Status: Hx Family Cardiac Disorders: Yes Hx Family Respiratory Disorders: Yes (copd) Hx Family Cancer: Yes (lung cancer) Hx Family Endocrine Disorder: Yes (DM type II) Father Adopted: No Family Member Ethnicity: Non- Living Status: Hx Family Cardiac Disorders: Yes Hx Family Respiratory Disorders: Yes Hx Family Cancer: Yes (LUNG) Hx Family GI Disorders: No Hx Family Endocrine Disorder: Yes (DM) Hx Family Neuromuscular Disorders: No Hx Family Neurologic Disorders: No Hx Family HEENT Disorders: No Hx Family Autoimmune Disorders: No Medications and Allergies Dabigatran Etexilate Mesylate [Pradaxa] 150 mg PO BID 05/12/17 [History] Omeprazole [PriLOSEC] 40 mg PO DAILY 05/12/17 [History] Lisinopril [Zestril] 5 mg PO DAILY tablet 06/20/17 [Rx] Albuterol Sulfate [Ventolin Hfa] 2 puff IH Q4H PRN 07/09/17 [History] Acetaminophen [Tylenol] 500 mg PO Q6HR PRN #20 tablet 09/09/17 [Rx] Insulin Glargine,Hum.rec.anlog [Basaglar Kwikpen U-100] 50 units SQ BID 11/18/17 [History] Aspirin [Lo-Dose Aspirin EC] 81 mg PO DAILY 10/17/18 [History] Gabapentin [Neurontin] 300 mg PO HS 12/23/18 [History] Metformin HCl [Glucophage] 1,000 mg PO BID 12/23/18 [History] clonazePAM [Clonazepam] 0.5 mg PO DAILY PRN 12/23/18 [History] Atorvastatin [Lipitor] 40 mg PO HS #30 tablet 12/28/18 [Rx] FLUoxetine HCl [Prozac] 60 mg PO DAILY #120 capsule 12/28/18 [Rx] Sotalol [Betapace] 80 mg PO Q12HR #60 tablet 12/28/18 [Rx] Allergy/AdvReac Type Severity Reaction Status Date / Time No Known Allergies Allergy Verified 10/17/18 09:08 All Systems Review: The remainder of the systems were reviewed and are negative Physical Examination Vital Signs, Last 4 Hours Temp Pulse Resp BP Pulse Ox 12/24/18 11:56 97.4 F L 55 17 96/69 97 General: Conversant, No Apparent Distress HEENT: Atraumatic, Normocephaly, Mucus Membranes Moist Neck: No JVD, Normal carotid pulses Cardiac: Reg Rate and Rhythm, Normal S1 and S2, No Murmur Lungs: Normal Breath Sounds, No Wheeze, Rales, Rhonchi Neuro: Alert and responsive, No focal deficits noted Abdomen: Soft, Non-Tender Skin: No rashes noted on visualized skin Musculoskeletal: No Chest Wall Tenderness Extremities: No Clubbing, No Cyanosis, No Edema, Normal Pulses Results 12/24/18 00:24 12/24/18 00:24 Lab Results 12/23/18 12/23/18 12/23/18 17:41 17:41 17:41 WBC 6.0 Hgb 13.6 Hct 41.1 Plt Count 245 D-Dimer 311 Sodium 138 Potassium 3.2 L Chloride 104 Carbon Dioxide 21 L BUN 9 Creatinine 0.49 L Glucose 423 H Calcium 9.3 Magnesium Troponin I < 0.03 12/24/18 12/24/18 12/24/18 00:24 00:24 00:24 WBC 5.3 Hgb 12.7 Hct 38.6 Plt Count 245 D-Dimer Sodium 139 Potassium 3.1 L Chloride 105 Carbon Dioxide 24 BUN 9 Creatinine 0.47 L Glucose 265 H Calcium 8.9 Magnesium 1.6 Troponin I < 0.03 12/24/18 05:34 WBC Hgb Hct Plt Count D-Dimer Sodium Potassium Chloride Carbon Dioxide BUN Creatinine Glucose Calcium Magnesium Troponin I < 0.03 - Imaging and Cardiology Stress Test: report reviewed Echo: report reviewed Cardiac cath: report reviewed - EKG Interpretation EKG results cardiology: personally reviewed Consult Discharge Plan - Plan Instructions: Fluoxetine (By mouth), Atorvastatin (By mouth), Sotalol (By mouth), Chest Pain (DC) Referrals: [facility] [Provider Group] (Office will call with date and time of appointment. ) Joanne Paez MD [Primary Care Provider] - 12/30/18 3:00 pm Prescriptions: Sotalol [Betapace] 80 mg PO Q12HR #60 tablet Atorvastatin [Lipitor] 40 mg PO HS #30 tablet FLUoxetine HCl [Prozac] 60 mg PO DAILY #120 capsule <Marco Antonio Brooks - Last Filed: 12/31/18 13:59> Date of Encounter: 12/31/18 - Attending Attestation I have personally performed a face to face evaluation on this patient. I have reviewed and agree with the care plan. History and Exam by me shows: Recurrent PAF. Remote episodes of VT noted on loop recorder. Would therefore discontinue flecainide and start sotalol. Assessment and Plan Discussion w patient/family: The assessment and plan as outlined above was discussed with the patient and/or family members who expressed understanding and agreement. All questions were answered. Thank you for involving us in the care of your patient. Please call with any questions. History of Present Illness History of present illness: Ms. Jacome is a 53 year old female All Systems Review: The remainder of the systems were reviewed and are negative Results 12/26/18 05:07 12/27/18 04:35
[2018-12-24] MEDS: *HR* Dabigatran 150 MG CAPSULE PO SCH (20:42)
[2018-12-24] MEDS: Gabapentin 300 MG CAPSULE PO SCH (20:42)
[2018-12-24] MEDS: clonazePAM 0.5 MG TABLET PO PRN (20:47)
[2018-12-24] MEDS ORDERED: Acetaminophen IV 500 MG/50 ML INFUS..BTL IVPB ONE (23:43)
[2018-12-25] MEDS: *HR* Dabigatran 150 MG CAPSULE PO SCH ×2 (07:53→20:02)
[2018-12-25] MEDS: FLUoxetine 20 MG CAPSULE PO SCH (07:53)
[2018-12-25] MEDS: *HR* HYDROcodone/Acet 5/325 mg TABLET PO PRN (07:53)
[2018-12-25] MEDS: Aspirin Enteric Coated 81 MG Tablet PO SCH (07:54)
[2018-12-25] MEDS: Insulin LISPRO 300 UNITS/3 ML VIAL SQ SCH ×4 (07:54→20:47)
[2018-12-25] MEDS: Insulin DETEMIR 100 UNIT/ML X5UNITS SQ SCH ×2 (08:34→20:02)
--- NOTE | 2018-12-25 10:31 | Electrophysiology ProgressNote ---
Date of Encounter: 12/25/18 Time of Encounter: 10:29 Assessment and Plan (1) Paroxysmal atrial fibrillation Current Visit: No Status: Acute Loop recorder check ahowed 101 episodes atrial fibrillation since last check (01/2015). Increased re-occurrences in the past two months. Also seen to have possible atrial fibrillation with abberancy verses NSVT last February. Patient has not followed with her Motor Builder Winder for loop recorder check. Noted previous cardiac testing as discussed in HPI. Pt taking flecainide 100 mg BID , reports occasional missed doses, last dose Saturday per patient. Although hospitalist notes patient has not filled meds in past year. Patients sticks to her story that she is taking. Metoprolol recently increased to 50 mg BID. Discussed with Dr. Brooks yesterday, recommend stopping flecainide at this point due to possible NSVT while on medication (if patient was taking) and given recurrent PAF. Will wait 24 hours for continued flecainide wash out and then start Sotolal 80 mg BID tomorrow with daily EKG. Will need monitored for 5 doses. Importance Continue pradaxa for senior care AC. Indication, risk, and alternative to AC reviewed. Patient agrees with plan. She remains NSR. If she would require DCCV prior to discharge she will need LALITHA. Discussion w patient/family: The assessment and plan as outlined above was discussed with the patient and/or family members who expressed understanding and agreement. All questions were answered. Thank you for involving us in the care of your patient. Please call with any questions. Subjective Principal diagnosis: PAF Interval history: Ms. Jacome was sleeping on my encounter and waked easily. C/o continued fatigue and weakness and overall not feeling well when she woke. Says she dropped her water today. Concerned she may need home health due to weakness. Hospitalist notes patient has not filled her medications in a year. On my encounter she says she was taking pradaxa and flecainide at home.. Objective Vital Signs, Last 4 Hours Temp Pulse Resp BP Pulse Ox 12/25/18 07:06 98.2 F 66 17 110/63 98 General: Conversant, No Apparent Distress HEENT: Atraumatic, Normocephaly, Mucus Membranes Moist Neck: No JVD, Normal carotid pulses Cardiac: Reg Rate and Rhythm, Normal S1 and S2, No Murmur Lungs: Normal Breath Sounds, No Wheeze, Rales, Rhonchi Neuro: Alert and responsive, No focal deficits noted Abdomen: Soft, Non-Tender Skin: No rashes noted on visualized skin Musculoskeletal: No Chest Wall Tenderness Extremities: No Clubbing, No Cyanosis, No Edema, Normal Pulses Results 12/24/18 00:24 12/24/18 00:24 Lab Results 12/24/18 16:32 TSH 2.103 - Imaging and Cardiology Echo: report reviewed - EKG Interpretation EKG results cardiology: personally reviewed Consult Discharge Plan - Plan Referrals: Joanne Paez MD [Primary Care Provider] - 12/30/18 3:00 pm
--- NOTE | 2018-12-25 15:04 | Internal Med Progress Note ---
Hospitalist Progress Note - Encounter Date of Encounter: 12/25/18 Time of Encounter: 15:03 - Subjective Interval History: Ms. Jacome is a 53 year old female with history of poorly controlled type 2 diabetes,HTN, HLD, CAD, and paroxysmal atrial fibrillation who recently had cardiac ablation at [place], presented to ER with chest pain, left arm numbness. She developed sharp stabbing chest pain in the center of her chest. She also c/o heart burn / epigastric pain too. She stated the pain radiated into her back. She had a normal stress test done in October 2018. She does have loop recorded too. She was admitted in the hospital and placed on bell attendant. She denied any active chest pain. However she complaining about epigastric discomfort. She also stated feeling weak and lethargic. - Exam Vitals: Temp Pulse Resp BP Pulse Ox 97.7 F 63 18 114/72 97 12/25/18 12:11 12/25/18 12:11 12/25/18 12:11 12/25/18 12:11 12/25/18 12:11 Exam: Gen: Alert, awake, Oriented to time,place and person Chest: Diminished breath sounds B/L, No wheezing, No crackles, No rales Heart: S1S2+ RRR No murmurs Abd: Soft, NT, BS +, No organomegaly Ext: No edema, pulses are palpable, No calf tenderness Neuro : No acute focal neuro deficits noticed Skin: No rash. - Assessment and Plan (1) Chest pain Current Visit: Yes Status: Acute Assessment and Plan: So far negative trop x 3 No acute ischemic changes on EKG Cont close monitoring cont home meds ASA, Metoprolol and Statin Reviewed her FLP - LDL still significantly elevated Inc her LIpitor consulted cardiology for further evaluation No interventions recommended since her CP seems to be atypical However she does have multiple episodes of PAF on loop recorder, so pt was evaluated by EP cardiology who recommend to switch to Sotalol antiarrhythmic therapy (2) Atrial fibrillation Current Visit: Yes Status: Acute Assessment and Plan: Currently normal sinus rhythm On Loop recorder - interrogated by cardiology Pt claims she was taking flecainide and Pradaxa.. When we called pharmacy they never got refilled At this point cardiology wanted to wash off Flecainide x 24 hrs and started her on Sotalol in AM resumed Pradaxa for anti coag Patient does need to stay in the hospital more than 2 midnights due to her c omplex medical problems with a fib need to start her on new antiarrhythmic medication which need close monitoring. So we will change her to full admission today. I did review my colleague's H & P including HPI, PMH, PSH, FH, SH, and ROS no changes noticed (3) Hypokalemia Current Visit: No Status: Resolved Assessment and Plan: Cont replacing (4) Type 2 diabetes mellitus Current Visit: Yes Status: Chronic Assessment and Plan: on ADA diet on ISS + Levemir (5) DVT prophylaxis Current Visit: No Status: Acute Assessment and Plan: on Pradaxa - Time Spent with Patient Total time spent is greater than 50% in coordination of care (as documented) at patient's floor/unit and/or counseling patient: Internal Medicine: Result - Labs CBC & Chem 7: 12/24/18 00:24 12/24/18 00:24 - ABG Interpretation ABG results: PT/INR, D-dimer 311 ng/mLFEU (0-500) 12/23/18 17:41 Consult Discharge Plan - Plan Referrals: Joanne Paez MD [Primary Care Provider] - 12/30/18 3:00 pm (1) Chest pain Qualifiers: Chest pain type: other chest pain Qualified Code(s): R07.89 - Other chest pain; R07.8 - Other chest pain (2) Atrial fibrillation Qualifiers: Atrial fibrillation type: paroxysmal Qualified Code(s): I48.0 - Paroxysmal atrial fibrillation (4) Type 2 diabetes mellitus Qualifiers: Diabetes mellitus nursing home insulin use: with nursing home use Diabetes mellitus complication status: with hyperglycemia Qualified Code(s): E11.65 - Type 2 diabetes mellitus with hyperglycemia; Z79.4 - intermediate designer (current) use of insulin
[2018-12-25] MEDS: Gabapentin 300 MG CAPSULE PO SCH (20:02)
[2018-12-25] MEDS: *HR* OxyCODONE Immed Rel 5 MG TABLET PO PRN (20:02)
[2018-12-25] MEDS: clonazePAM 0.5 MG TABLET PO PRN (20:05)
[2018-12-26] MEDS: *HR* OxyCODONE Immed Rel 5 MG TABLET PO PRN ×2 (04:26→17:32)
[2018-12-26 05:47] LABS: Basophils % 0.5 %; Eosinophils # 0.1 K/mcL (0.0-0.6); Eosinophils % 1.8 %; Hematocrit 39.3 % (35.3-44.9); Hemoglobin 12.5 g/dL (11.5-15.4); Immature Granulocytes % 0.2 % (0-4); Lymphocytes # 2.3 K/mcL (0.6-4.6); Lymphocytes % 39.9 %; Mean Corpuscular HGB Conc 31.8 g/dL (31.6-35.5); Mean Corpuscular Hemoglobin 27.2 pg (28.0-33.3); Mean Corpuscular Volume 85.4 fL (83.0-100.0); Monocytes # 0.3 K/mcL (0.0-1.3); Monocytes % 5.3 %; Platelet Count 256 K/mcL (140-400); Red Cell Distribution Width 13.3 % (11.5-14.5); Segmented Neutrophils % 52.3 %; White Blood Count 5.6 K/mcL (4.3-11.1)
[2018-12-26 06:05] LABS: BUN/Creatinine Ratio 27 (6-26); Blood Urea Nitrogen 13 mg/dL (6-20); Calcium 9.3 mg/dL (8.6-10.3); Carbon Dioxide 26 mEq/L (23-29); Chloride 105 mEq/L (98-107); Glucose 229 mg/dL (70-105); Magnesium 1.5 mg/dL (1.6-2.6); Osmolality,Calculated 291 (280-300); Potassium 3.6 mEq/L (3.5-5.1); Sodium 137 mEq/L (136-145); eGFR For African Americans > 60 (> 60); eGFR For Non-African Americans > 60 (> 60)
[2018-12-26] MEDS: *HR* HYDROcodone/Acet 5/325 mg TABLET PO PRN ×2 (06:08→21:00)
[2018-12-26] MEDS: Aspirin Enteric Coated 81 MG Tablet PO SCH (08:15)
[2018-12-26] MEDS: FLUoxetine 20 MG CAPSULE PO SCH (08:15)
[2018-12-26] MEDS: *HR* Dabigatran 150 MG CAPSULE PO SCH ×2 (08:16→21:00)
[2018-12-26] MEDS: Insulin DETEMIR 100 UNIT/ML X5UNITS SQ SCH ×2 (08:16→21:00)
[2018-12-26] MEDS: Insulin LISPRO 300 UNITS/3 ML VIAL SQ SCH ×4 (08:16→21:01)
--- NOTE | 2018-12-26 11:37 | Cardiology Progress Note ---
Date of Encounter: 12/26/18 Time of Encounter: 11:35 Assessment and Plan (1) Paroxysmal atrial fibrillation Current Visit: No Status: Acute Loop recorder check this admission for c/o palpitations and chest discomfort. 101 episodes atrial fibrillation since last check (01/2015). Increased re- occurrences in the past two months. Also seen to have possible atrial fibrillation with abberancy verses NSVT last February. Patient has not followed with her Mail Sorter for loop recorder check. Cardiac testing: Limited this admit EF 60%. Stress test October 2018- Negative for ischemia. TTE October 2018- EF 60%, mild MR. [facility] 2011- normal coronaries. Patient reported home meds: flecainide 100 mg BID , Metoprolol 25 mg BID. Flecainide stopped 3 days prior to admission per patient due to running out. Concern about compliance as pt has not filled in over a year. Patient recommended to start sotalol for frequent PAF. Also concern for VT last year while patient was on flecainide. Metoprolol was increased to 50 mg BID during stay as well. HR noted to be 45 this am after metoprolol and sotalol. B/p stable. Will hold metoprolol. Sotalol 80 mg BID started this am. Monitor for 5 doses. Qam EKG. Baseline EKG 12/25/18-HR 58 bpm, NSR, QT/QTc 424/421ms, QRS 112. Continue pradaxa for nursing home AC. Indication, risk, and alternative to AC reviewed. Patient agrees with plan. She remains NSR- sinus bradycardia. If she would require DCCV prior to discharge she will need LALITHA due to non compliance with medication. Discussion w patient/family: The assessment and plan as outlined above was discussed with the patient and/or family members who expressed understanding and agreement. All questions were answered. Thank you for involving us in the care of your patient. Please call with any questions. Subjective Principal diagnosis: PAF Interval history: Ms. Jacome was sleeping on my encounter and waked easily. C/o continued fatigue and weakness. C/o dizziness with ambulation this morning. C/o back pain. HR noted to be in the 40's. We will stop metoprolol. Objective Vital Signs, Last 4 Hours Temp Pulse Resp BP Pulse Ox 12/26/18 11:31 97.6 F 48 14 101/62 99 06/14/19 07:54 97.7 F 60 16 119/79 98 General: Conversant, No Apparent Distress HEENT: Atraumatic, Normocephaly, Mucus Membranes Moist Neck: No JVD, Normal carotid pulses Cardiac: Reg Rate and Rhythm, Normal S1 and S2, No Murmur Lungs: Normal Breath Sounds, No Wheeze, Rales, Rhonchi Neuro: Alert and responsive, No focal deficits noted Abdomen: Soft, Non-Tender Skin: No rashes noted on visualized skin Musculoskeletal: No Chest Wall Tenderness Extremities: No Clubbing, No Cyanosis, No Edema, Normal Pulses Results 12/26/18 05:07 12/26/18 05:07 Lab Results 12/26/18 12/26/18 05:07 05:07 WBC 5.6 Hgb 12.5 Hct 39.3 Plt Count 256 Sodium 137 Potassium 3.6 Chloride 105 Carbon Dioxide 26 BUN 13 Creatinine 0.48 L Glucose 229 H Calcium 9.3 Magnesium 1.5 L - Imaging and Cardiology Echo: report reviewed Consult Discharge Plan - Plan Referrals: Joanne Paez MD [Primary Care Provider] - 12/30/18 3:00 pm
--- NOTE | 2018-12-26 14:54 | Internal Med Progress Note ---
Hospitalist Progress Note - Encounter Date of Encounter: 12/26/18 Time of Encounter: 13:00 - Subjective Interval History: Ms. Jacome is a 53 year old female with history of poorly controlled type 2 diabetes,HTN, HLD, CAD, and paroxysmal atrial fibrillation who recently had cardiac ablation at [place], presented to ER with chest pain, left arm numbness. She developed sharp stabbing chest pain in the center of her chest. She also c/o heart burn / epigastric pain too. She stated the pain radiated into her back. She had a normal stress test done in October 2018. She does have loop recorded too. She was admitted in the hospital and placed on cardiac exercise specialist. She denied any active chest pain. She still c/o feeling weak and lethargic. Pt mentioned r ecently her son dx with testicular cancer, since then she is going through lot of stress and feeling very depressed. She denied any suicidal ideation. - Exam Vitals: Temp Pulse Resp BP Pulse Ox 97.6 F 48 14 101/62 99 12/26/18 11:31 12/26/18 11:31 12/26/18 11:31 12/26/18 11:31 12/26/18 11:31 Exam: Gen: Alert, awake, Oriented to time,place and person..Looks weak and lethargic Chest: Diminished breath sounds B/L, No wheezing, No crackles, No rales Heart: S1S2+ RRR No murmurs Abd: Soft, NT, BS +, No organomegaly Ext: No edema, pulses are palpable, No calf tenderness Neuro : No acute focal neuro deficits noticed Skin: No rash. - Assessment and Plan (1) Chest pain Current Visit: Yes Status: Acute Assessment and Plan: Negative trop x 3 No acute ischemic changes on EKG Cont close monitoring cont home meds ASA, Metoprolol and Statin Reviewed her FLP - LDL still significantly elevated Inc her Lipitor Car evaluated the pt no interventions recommended since her CP seems to be atypical However she does have multiple episodes of PAF on loop recorder, so pt was evaluated by EP cardiology who recommend to switch to Sotalol antiarrhythmic therapy (2) Atrial fibrillation Current Visit: Yes Status: Acute Assessment and Plan: Currently normal sinus rhythm On Loop recorder - interrogated by cardiology Pt claims she was taking flecainide and Pradaxa.. When we called pharmacy they never got refilled At this point cardiology we waited to wash off Flecainide x 24 hrs and started her on Sotalol today since her HR in 50's now cut down on Metoprolol dose to 25mg BID resumed Pradaxa for anti coag (3) Depression Current Visit: No Status: Acute Assessment and Plan: Cont home med Prozac and Clonozepam Pt would like to talk to Psychiatrist / Behavioral health specialist consulted Psych and SW Comments: zoloft. denies depression. (4) Hypokalemia Current Visit: No Status: Resolved Assessment and Plan: Cont replacing (5) Type 2 diabetes mellitus Current Visit: Yes Status: Chronic Assessment and Plan: on ADA diet on ISS + Levemir (6) DVT prophylaxis Current Visit: No Status: Acute Assessment and Plan: on Pradaxa - Time Spent with Patient Total time spent is greater than 50% in coordination of care (as documented) at patient's floor/unit and/or counseling patient: Internal Medicine: Result - Labs CBC & Chem 7: 12/26/18 05:07 12/26/18 05:07 Labs: Short CBC 12/26/18 Range/Units 05:07 WBC 5.6 (4.3-11.1) K/mcL Hgb 12.5 (11.5-15.4) g/dL Hct 39.3 (35.3-44.9) % Plt Count 256 (140-400) K/mcL Neutrophils # 3.0 (1.6-8.9) K/mcL BMP 12/26/18 05:07 Sodium 137 Potassium 3.6 Chloride 105 Carbon Dioxide 26 BUN 13 Creatinine 0.48 L Glucose 229 H Calcium 9.3 - ABG Interpretation ABG results: PT/INR, D-dimer 311 ng/mLFEU (0-500) 12/23/18 17:41 Consult Discharge Plan - Plan Referrals: Joanne Paez MD [Primary Care Provider] - 12/30/18 3:00 pm (1) Chest pain Qualifiers: Chest pain type: other chest pain Qualified Code(s): R07.89 - Other chest pain; R07.8 - Other chest pain (2) Atrial fibrillation Qualifiers: Atrial fibrillation type: paroxysmal Qualified Code(s): I48.0 - Paroxysmal atrial fibrillation (3) Depression Qualifiers: Depression Type: major depressive disorder Major depression recurrence: recurrent Active/Remission status: currently active Major depression episode severity: moderate Qualified Code(s): F33.1 - Major depressive disorder, recur rent, moderate (5) Type 2 diabetes mellitus Qualifiers: Diabetes mellitus rn long term care insulin use: with halfway use Diabetes mellitus complication status: with hyperglycemia Qualified Code(s): E11.65 - Type 2 diabetes mellitus with hyperglycemia; Z79.4 - FDC (current) use of insulin
--- NOTE | 2018-12-26 16:59 | Electrocardiograph Report ---
[address] [address] Test Date: 2018-12-26 Pat Name: Christie Jacome Department: 113 Room: 3B Gender: F Surg Tech: : 1965 Requested By: Chapincito Cristobal Order Number: [id number] Reading MD: Margoth Brooks Measurements Intervals [place] Rate: 51 P: 46 PA: 142 QRS: 36 QRSD: 98 T: 30 QT: 426 QTc: 402 Interpretive Statements SINUS BRADYCARDIA Electronically Signed On 12-26-2018 16:58:00 EDT by Margoth Brooks
[2018-12-26] MEDS: clonazePAM 0.5 MG TABLET PO PRN (21:00)
[2018-12-26] MEDS: Gabapentin 300 MG CAPSULE PO SCH (21:00)
[2018-12-27] MEDS: *HR* OxyCODONE Immed Rel 5 MG TABLET PO PRN ×4 (02:21→23:40)
[2018-12-27] MEDS: *HR* HYDROcodone/Acet 5/325 mg TABLET PO PRN (04:39)
[2018-12-27 05:12] LABS: BUN/Creatinine Ratio 26 (6-26); Blood Urea Nitrogen 12 mg/dL (6-20); Calcium 8.9 mg/dL (8.6-10.3); Carbon Dioxide 28 mEq/L (23-29); Chloride 102 mEq/L (98-107); Glucose 248 mg/dL (70-105); Magnesium 1.6 mg/dL (1.6-2.6); Osmolality,Calculated 294 (280-300); Potassium 4.3 mEq/L (3.5-5.1); Sodium 138 mEq/L (136-145); eGFR For African Americans > 60 (> 60); eGFR For Non-African Americans > 60 (> 60)
[2018-12-27] MEDS: Insulin LISPRO 300 UNITS/3 ML VIAL SQ SCH ×4 (07:59→21:09)
[2018-12-27] MEDS: Insulin DETEMIR 100 UNIT/ML X5UNITS SQ SCH ×2 (08:00→21:07)
[2018-12-27] MEDS: *HR* Dabigatran 150 MG CAPSULE PO SCH ×2 (08:01→21:06)
[2018-12-27] MEDS: Aspirin Enteric Coated 81 MG Tablet PO SCH (08:01)
[2018-12-27] MEDS: FLUoxetine 20 MG CAPSULE PO SCH (08:01)
--- NOTE | 2018-12-27 08:06 | Consult Note ---
Date of Encounter: 12/27/18 Time of Encounter: 07:30 Assessment & Recommendation (1) Depression Current visit: No Status: Acute Assessment & Recommendation: We discussed different options to address her depression. One option would be to change to a different class of medication such as an MRI like Cymbalta or dopaminergic medication such as Wellbutrin. My recommendation however this time is to maximize the Prozac and increased to 60 mg by mouth every morning to further treat the depression and anxiety to ensure that she has an adequate trial of this before switching to another agent. Continue Klonopin. At this time she does not meet criteria for inpatient psychiatric hospitalization she is not suicidal or homicidal and is able to care for basic needs. Qualifiers: Depression Type: major depressive disorder Major depression recurrence: recurrent Active/Remission status: currently active Major depression episode severity: moderate Qualified Code(s): F33.1 - Major depressive disorder, recurrent, moderate History of Present Illness Requesting Physician: Domingo Stallworth MD Reason for consult: depression History of present illness: Ms. Jacome is a 53 year old female with history of poorly controlled type 2 diabetes,HTN, HLD, CAD, and paroxysmal atrial fibrillation who recently had cardiac ablation at [place], presented to ER with chest pain, left arm numbness. She developed sharp stabbing chest pain in the center of her chest. She also c/o heart burn / epigastric pain too. She stated the pain radiated into her back. She had a normal stress test done in October 2018. She does have loop recorded too. She was admitted in the hospital and placed on cardiac monitor technician. She denied any active chest pain. She still c/o feeling weak and lethargic. Pt mentioned recently her son dx with testicular cancer, since then she is going through lot of stress and feeling very depressed. Psychiatry was consulted to address the depression. Patient reports numerous psychosocial stressors and life changes including the diagnosis of her son with testicular cancer, her sister no longer being able to come visit her because her sister has a has a controlling boyfriend, and having financial difficulties because at the insistence of her brother she recently got on disability. She says she was started on Prozac less than a month ago by her primary care physician. It was started at 20 and then raced 40. She says she has not noticed much difference. She reports sad mood, decreased interest, feelings of hopelessness, lack of interests. She does push herself to do things such as go out and go swimming. She denies suicidal or homicidal thoughts ideations or plans and so she just wants to feel better. She reports some general anxiety about a number of different topics with no panic attacks. She denies a history of manic symptoms or psychosis. CC: Domingo Stallworth MD Past Med Surg Social Fam HX - Past Medical History Medical history: atrial fibrillation, COPD, CVA, diabetes, hyperlipidemia, hypertension, myocardial infarction, renal disease, TIA, other - Past Psychiatric History Psychiatric history: Reports: depression Past psychiatric history details: She has no prior suicide attempts, hospitalizations, or outpatient services. She has been tried on Zoloft in the past which she also felt was not helpful. Family psychiatric history: No Family History of Suicide: None - Past Surgical History Surgical History: cholecystectomy - Social History Smoking Status: Never smoker Smokeless Tobacco Status: No Alcohol use: occasionally Drug use: none Occupational status: disabled Current living situation: Home - Independent Activity Level: Independent ambulation Recent Out of Country Travel Within the Last 8 Weeks: No Exposure or Possible Exposure to Illness During Travel: No - Family History Mother Living Status: Hx Family Cardiac Disorders: Yes Hx Family Respiratory Disorders: Yes (copd) Hx Family Cancer: Yes (lung cancer) Hx Family Endocrine Disorder: Yes (DM type II) Father Adopted: No Family Member Ethnicity: Non- Living Status: Hx Family Cardiac Disorders: Yes Hx Family Respiratory Disorders: Yes Hx Family Cancer: Yes (LUNG) Hx Family GI Disorders: No Hx Family Endocrine Disorder: Yes (DM) Hx Family Neuromuscular Disorders: No Hx Family Neurologic Disorders: No Hx Family HEENT Disorders: No Hx Family Autoimmune Disorders: No Medications & Allergies Dabigatran Etexilate Mesylate [Pradaxa] 150 mg PO BID 05/12/17 [History] Flecainide 100 mg PO BID 05/12/17 [History] Omeprazole [PriLOSEC] 40 mg PO DAILY 05/12/17 [History] Atorvastatin Calcium [Lipitor] 20 mg PO HS 06/03/17 [History] Lisinopril [Zestril] 5 mg PO DAILY tablet 06/20/17 [Rx] Albuterol Sulfate [Ventolin Hfa] 2 puff IH Q4H PRN 07/09/17 [History] Acetaminophen [Tylenol] 500 mg PO Q6HR PRN #20 tablet 09/09/17 [Rx] Insulin Glargine,Hum.rec.anlog [Basaglar Kwikpen U-100] 50 units SQ BID 11/18/17 [History] FLUoxetine HCl [Prozac] 40 mg PO DAILY 10/16/18 [History] Aspirin [Lo-Dose Aspirin EC] 81 mg PO DAILY 10/17/18 [History] Metoprolol [Lopressor] 25 mg PO BID 10/17/18 [History] Gabapentin [Neurontin] 300 mg PO HS 12/23/18 [History] Metformin HCl [Glucophage] 1,000 mg PO BID 12/23/18 [History] clonazePAM [Clonazepam] 0.5 mg PO DAILY PRN 12/23/18 [History] Allergy/AdvReac Type Severity Reaction Status Date / Time No Known Allergies Allergy Verified 10/17/18 09:08 Review of Systems Constitutional: Reports: weakness Eyes: Denies: eye pain Ears, Nose, Throat: Denies: ear pain Cardiovascular: Reports: chest pain Respiratory: Reports: dyspnea Gastrointestinal: Denies: abdominal pain Genitourinary female: Denies: urgency Musculoskeletal: Reports: myalgia Integumentary: Denies: rash Neurological: Reports: weakness Psychiatric: Reports: depression, anxiety, anhedonia. Denies: suicidal ideation, homicidal ideation, auditory hallucinations, visual hallucinations Endocrine: Reports: fatigue Hematologic/Lymphatic: Denies: easy bleeding Allergic/Immunologic: Denies: facial swelling Psychiatry Exam - Constitutional Vitals: Temp Pulse Resp BP Pulse Ox 97.5 F L 50 16 99/48 97 12/27/18 07:43 12/27/18 07:43 12/27/18 07:43 12/27/18 07:43 12/27/18 07:43 General appearance: age & developmentally appropriate - Musculoskeletal Gait: other (In bed) Station: relaxed Strength & Tone: mild weakness - Psychiatric Patient Orientation: Yes Person, Yes Time, Yes Place, Yes Circumstance Level of alertness: Alert Behavior: calm, tearful Psychomotor activity: Slowed Eye Contact: Maintains Eye Contact Mood Description: Depressed Patient description of mood: Down Affect description: dysphoric Speech Volume: Normal Speech pattern: normal rate Language & Vocabulary: consistent with education Thought Process: Linear, Goal Oriented Thought Content: No Suicidal ideation, No Homicidal ideation, No Overt delusions Perceptual Disturbances: No Auditory hallucinations, No Visual hallucinations Attention Span Ability: Capable of Focused Attention Memory Description: Grossly Intact Patient Reliability: Reliable Historian Fund of knowledge: Yes abstraction ability, Yes aware of current events Intelligence Estimate: Average Judgment: Good Insight: Full Results - Labs Labs: Laboratory Last Values WBC 5.6 K/mcL (4.3-11.1) 12/26/18 05:07 RBC 4.60 M/mcL (3.82-4.97) 12/26/18 05:07 Hgb 12.5 g/dL (11.5-15.4) 12/26/18 05:07 Hct 39.3 % (35.3-44.9) 12/26/18 05:07 MCV 85.4 fL (83.0-100.0) 12/26/18 05:07 MCH 27.2 pg (28.0-33.3) L 12/26/18 05:07 MCHC 31.8 g/dL (31.6-35.5) 12/26/18 05:07 RDW 13.3 % (11.5-14.5) 12/26/18 05:07 Plt Count 256 K/mcL (140-400) 12/26/18 05:07 MPV 11.0 fL (9.4-12.4) 12/26/18 05:07 Immature Gran % 0.2 % (0-4) 12/26/18 05:07 Seg Neutrophils % 52.3 % 12/26/18 05:07 39.9 % 12/26/18 05:07 5.3 % 12/26/18 05:07 1.8 % 12/26/18 05:07 0.5 % 12/26/18 05:07 3.0 K/mcL (1.6-8.9) 12/26/18 05:07 2.3 K/mcL (0.6-4.6) 12/26/18 05:07 0.3 K/mcL (0.0-1.3) 12/26/18 05:07 0.1 K/mcL (0.0-0.6) 12/26/18 05:07 0.0 K/mcL (0.0-0.2) 12/26/18 05:07 311 ng/mLFEU (0-500) 12/23/18 17:41 Sodium 138 mEq/L (136-145) 12/27/18 04:35 Potassium 4.3 mEq/L (3.5-5.1) 12/27/18 04:35 Chloride 102 mEq/L (98-107) 12/27/18 04:35 Carbon Dioxide 28 mEq/L (23-29) 12/27/18 04:35 BUN 12 mg/dL (6-20) 12/27/18 04:35 0.46 mg/dL (0.60-1.20) L 12/27/18 04:35 Est GFR ( Amer) > 60 (> 60) 12/27/18 04:35 Est GFR (Non-Af Amer) > 60 (> 60) 12/27/18 04:35 26 (6-26) 12/27/18 04:35 Glucose 248 mg/dL (70-105) H 12/27/18 04:35 POC Glucose 139 mg/dL (70-99) H 12/26/18 20:06 294 (280-300) 12/27/18 04:35 Calcium 8.9 mg/dL (8.6-10.3) 12/27/18 04:35 Magnesium 1.6 mg/dL (1.6-2.6) 12/27/18 04:35 < 0.03 ng/mL (< 0.04) 12/24/18 05:34 Triglycerides 193 mg/dL (< 150) H 12/24/18 00:24 Cholesterol 222 mg/dL (< 200) H 12/24/18 00:24 LDL Cholesterol, Calc 147 mg/dL (0-99) H 12/24/18 00:24 VLDL Cholesterol, Calc 39 mg/dL (< 31) H 12/24/18 00:24 36 mg/dL (40-59) L 12/24/18 00:24 6.2 (0-4.9) H 12/24/18 00:24 TSH 2.103 mcIU/mL (0.340-5.600) 12/24/18 16:32 Yellow (Yellow) 12/24/18 10:21 Cloudy (Clear) A 12/24/18 10:21 5.5 pH Units (5.0-8.0) 12/24/18 10:21 Ur Specific [place] > 1.030 (1.010-1.025) H 12/24/18 10:21 Negative mg/dL (Neg-Trace) 12/24/18 10:21 >=1000 mg/dL (Normal) H 12/24/18 10:21 Negative mg/dL (Negative) 12/24/18 10:21 Negative (Negative) 12/24/18 10:21 Negative (Negative) 12/24/18 10:21 Negative (Negative) 12/24/18 10:21 Normal mg/dL (Normal) 12/24/18 10:21 Ur Leukocyte Esterase Small (Negative) H 12/24/18 10:21 3-5 per hpf (0-3) H 12/24/18 10:21 50-100 per hpf (0-3) H 12/24/18 10:21 Ur Squamous Epith Cells Many per lpf (None-Few) H 12/24/18 10:21 Moderate per hpf (None-Few) H 12/24/18 10:21 Hyaline Casts Few per lpf (None-Few) 12/24/18 10:21 Consult Discharge Plan - Plan Referrals: Joanne Paez MD [Primary Care Provider] - 12/30/18 3:00 pm
--- NOTE | 2018-12-27 11:53 | Event Note ---
Date of Encounter: 12/27/18 Time of Encounter: 11:52 - Cardiology Event Note Sotalol 80 mg BID started 614 am. Monitor for 5 doses. Has received 3 doses. Qam EKG. 12 hr tele AVG HR 53, SR. Lowest HR noted 46. Lopressor stopped d/t bradycardia. QTc remains stable. Continue pradaxa for skilled nursing AC. Indication, risk, and alternative to AC reviewed. Patient agrees with plan. She remains NSR- sinus bradycardia. If she would require DCCV prior to discharge she will need LALITHA due to non compliance with medication. Will re-evaluate in AM after pt has received 5th Sotalol dose.
--- NOTE | 2018-12-27 15:27 | Internal Med Progress Note ---
Hospitalist Progress Note - Encounter Date of Encounter: 12/27/18 Time of Encounter: 15:23 - Subjective Interval History: Patient seen and examined at the bedside. Continues to complain of fatigue. No chest pain or shortness of breath. EKG with no prolonged QT. Psychiatric evaluation noted. Nephrology following for completion of 5 doses of sotalol Hemodynamically stable. - Exam Vitals: Temp Pulse Resp BP Pulse Ox 97.8 F 63 18 105/68 97 12/27/18 15:19 12/27/18 15:19 12/27/18 15:19 12/27/18 15:19 12/27/18 15:19 Exam: Gen: Alert, awake, Oriented to time,place and person..Looks weak and lethargic Chest: Diminished breath sounds B/L, No wheezing, No crackles, No rales Heart: S1S2+ RRR No murmurs Abd: Soft, NT, BS +, No organomegaly Ext: No edema, pulses are palpable, No calf tenderness Neuro : No acute focal neuro deficits noticed Skin: No rash. - Assessment and Plan (1) Depression Current Visit: Yes Status: Chronic Assessment and Plan: Increase Prozac 60 mg by mouth daily Psych evaluation noted and appreciated Patient is not psychotic or suicidal. Comments: zoloft. denies depression. (2) Chest pain Current Visit: Yes Status: Acute Assessment and Plan: Negative trop x 3 No acute ischemic changes on EKG Cont close monitoring cont home meds ASA, Metoprolol and Statin No intervention according to cardiology. (3) DVT prophylaxis Current Visit: Yes Status: Acute Assessment and Plan: Patient is on full anticoagulation with prior DEXA. (4) Hypokalemia Current Visit: Yes Status: Resolved Assessment and Plan: Resolved, continue to monitor. (5) Type 2 diabetes mellitus Current Visit: Yes Status: Chronic Assessment and Plan: on ADA diet on ISS + Levemir (6) Atrial fibrillation Current Visit: Yes Status: Acute Assessment and Plan: Metoprolol has been discontinued Heart rate is controlled Continue Sotalol per cardiology recommendation Continue pradaxa - Time Spent with Patient Total time spent is greater than 50% in coordination of care (as documented) at patient's floor/unit and/or counseling patient: Plan of Care Discussed with: patient Internal Medicine: Result - Labs CBC & Chem 7: 12/26/18 05:07 12/27/18 04:35 Labs: [facility] 12/27/18 04:35 Sodium 138 Potassium 4.3 Chloride 102 Carbon Dioxide 28 BUN 12 Creatinine 0.46 L Glucose 248 H Calcium 8.9 - ABG Interpretation ABG results: PT/INR, D-dimer 311 ng/mLFEU (0-500) 12/23/18 17:41 Consult Discharge Plan - Plan Referrals: Joanne Paez MD [Primary Care Provider] - 12/30/18 3:00 pm (1) Depression Qualifiers: Depression Type: major depressive disorder Major depression recurrence: recurrent Active/Remission status: currently active Major depression episode severity: moderate Qualified Code(s): F33.1 - Major depressive disorder, recurrent, moderate (2) Chest pain Qualifiers: Chest pain type: other chest pain Qualified Code(s): R07.89 - Other chest pain; R07.8 - Other chest pain (5) Type 2 diabetes mellitus Qualifiers: 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
[2018-12-27] MEDS: Gabapentin 300 MG CAPSULE PO SCH (21:06)
[2018-12-27] MEDS: clonazePAM 0.5 MG TABLET PO PRN (21:07)
[2018-12-28] MEDS ORDERED: Acetaminophen IV 500 MG/50 ML INFUS..BTL IVPB ONE (03:22)
[2018-12-28] MEDS: *HR* OxyCODONE Immed Rel 5 MG TABLET PO PRN ×2 (06:21→13:22)
[2018-12-28] MEDS ORDERED: FLUoxetine 20 MG CAPSULE PO SCH (09:00)
--- NOTE | 2018-12-28 10:36 | Event Note ---
Date of Encounter: 12/28/18 Time of Encounter: 10:34 - Cardiology Event Note Sotalol 80 mg BID started 6/14 am for PAF. Has received 5 doses. Daily ECGs show stable QTc. Maintaining SR. 12 hr tele AVG HR 58, SR. Lowest HR noted 49. Lopressor stopped d/t bradycardia.. 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 Indication, risk, and alternative to AC reviewed. Cardiology signing off. Reconsult PRN. Will coordinate outpt follow-up in 3-4 weeks.
[2018-12-28] MEDS: Aspirin Enteric Coated 81 MG Tablet PO SCH (10:39)
[2018-12-28] MEDS: *HR* Dabigatran 150 MG CAPSULE PO SCH (10:39)
[2018-12-28] MEDS: Insulin LISPRO 300 UNITS/3 ML VIAL SQ SCH ×2 (10:39→13:23)
[2018-12-28] MEDS: Insulin DETEMIR 100 UNIT/ML X5UNITS SQ SCH (10:39)
[2018-12-28 12:11] VITALS: BP 112/55
--- NOTE | 2018-12-28 13:42 | Discharge Summary ---
- NOTES TO OUTPATIENT PROVIDER Notes to Outpatient Provider: Patient presented with chest pain, generalized weakness and tiredness, evidence of multiple episodes of atrial fibrillation on recorder device on this admission. Patient had not been compliant with her flecainide and metoprolol at home. There was questionable compliance also with anticoagulation. Cardiology was consulted and patient was recommended to start also Tylenol for frequent paroxysmal atrial fibrillation and concern for ventricular tachycardia while patient was on flecainide. Patient has since tolerated 5 doses of sotalol with stable heart rate on EKG and normal QTC. Echocardiogram in this admission showed EF of 60%, normal left ventricular chamber size wall thickness and function and no evidence of PFO. All wall segments showed normal motion. Psych was consulted for depression and patient's medication has been increased from 40-60 mg of Prozac. Other home medications remain the same and stable. Recommend to follow up with primary care physician and color printer operator. Orders not resulted at time of discharge: Pending orders 12/23/18 17:22 ECG 12 lead ECG [ECG] Stat 12/24/18 11:35 ECG 12 lead ECG [ECG] Stat 12/27/18 06:00 EKG [ECG 12 lead ECG] [ECG] AM 0600 12/28/18 06:00 EKG [ECG 12 lead ECG] [ECG] AM 0600 12/29/18 06:00 EKG [ECG 12 lead ECG] [ECG] AM 06 Date of Encounter: 12/28/18 Time of Encounter: 13:39 - Discharge Diagnosis (1) Depression Priority: Secondary Status: Chronic Qualifiers: Depression Type: major depressive disorder Major depression recurrence: recurrent Active/Remission status: currently active Major depression episode severity: moderate Qualified Code(s): F33.1 - Major depressive disorder, recurrent, moderate (2) Chest pain Priority: Primary Status: Acute Qualifiers: Chest pain type: other chest pain Qualified Code(s): R07.89 - Other chest pain; R07.8 - Other chest pain (3) DVT prophylaxis Priority: Primary Status: Resolved (4) Hypokalemia Priority: Primary Status: Resolved (5) Type 2 diabetes mellitus Priority: Secondary Status: Chronic Qualifiers: Diabetes mellitus group home insulin 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 Jacome is a 53 year old female Patient presented with chest pain, generalized weakness and tiredness, evidence of multiple episodes of atrial fibrillation on recorder device on this admission. Patient had not been compliant with her flecainide and metoprolol at home. There was questionable compliance also with anticoagulation. Cardiology was consulted and patient was recommended to start also Tylenol for frequent paroxysmal atrial fibrillation and concern for ventricular tachycardia while patient was on flecainide. Patient has since tolerated 5 doses of sotalol with stable heart rate on EKG and normal QTC. Echocardiogram in this admission showed EF of 60%, normal left ventricular chamber size wall thickness and function and no evidence of PFO. All wall segments showed normal motion. Psych was consulted for depression and patient's medication has been increased from 40-60 mg of Prozac. Other home medications remain the same and stable. Recommend to follow up with primary care physician and color printer operator. Discharge discussed with: patient, nurse - Time Spent with Patient Total time spent providing and/or coordinating discharge services: Time spent: Less than 30 minutes - Discharge Medications Prescriptions: New Sotalol [Betapace] 80 mg PO Q12HR #60 tablet Atorvastatin [Lipitor] 40 mg PO HS #30 tablet FLUoxetine HCl [Prozac] 60 mg PO DAILY #120 capsule Continued Omeprazole [PriLOSEC] 40 mg PO DAILY Dabigatran Etexilate Mesylate [Pradaxa] 150 mg PO BID Lisinopril [Zestril] 5 mg PO DAILY tablet Albuterol Sulfate [Ventolin Hfa] 2 puff IH Q4H PRN PRN Reason: Shortness Of Breath Acetaminophen [Tylenol] 500 mg PO Q6HR PRN #20 tablet PRN Reason: Pain Insulin Glargine,Hum.rec.anlog [Basaglar Kwikpen U-100] 50 units SQ BID Aspirin [Lo-Dose Aspirin EC] 81 mg PO DAILY clonazePAM [Clonazepam] 0.5 mg PO DAILY PRN PRN Reason: Anxiety Gabapentin [Neurontin] 300 mg PO HS Metformin HCl [Glucophage] 1,000 mg PO BID Discontinued Flecainide 100 mg PO BID Atorvastatin Calcium [Lipitor] 20 mg PO HS FLUoxetine HCl [Prozac] 40 mg PO DAILY Metoprolol [Lopressor] 25 mg PO BID Home Medications: Dabigatran Etexilate Mesylate [Pradaxa] 150 mg PO BID 05/12/17 [History] Omeprazole [PriLOSEC] 40 mg PO DAILY 05/12/17 [History] Lisinopril [Zestril] 5 mg PO DAILY tablet 06/20/17 [Rx] Albuterol Sulfate [Ventolin Hfa] 2 puff IH Q4H PRN 07/09/17 [History] Acetaminophen [Tylenol] 500 mg PO Q6HR PRN #20 tablet 09/09/17 [Rx] Insulin Glargine,Hum.rec.anlog [Basaglar Kwikpen U-100] 50 units SQ BID 11/18/17 [History] Aspirin [Lo-Dose Aspirin EC] 81 mg PO DAILY 10/17/18 [History] Gabapentin [Neurontin] 300 mg PO HS 12/23/18 [History] Metformin HCl [Glucophage] 1,000 mg PO BID 12/23/18 [History] clonazePAM [Clonazepam] 0.5 mg PO DAILY PRN 12/23/18 [History] Atorvastatin [Lipitor] 40 mg PO HS #30 tablet 12/28/18 [Rx] FLUoxetine HCl [Prozac] 60 mg PO DAILY #120 capsule 12/28/18 [Rx] Sotalol [Betapace] 80 mg PO Q12HR #60 tablet 12/28/18 [Rx] Allergies/Adverse Reactions: Allergy/AdvReac Type Severity Reaction Status Date / Time No Known Allergies Allergy Verified 10/17/18 09:08 Date of admission: 12/25/18 13:21 Primary care physician: Joanne Paez Consults: 12/24/18 09:29 Consult to Cardiology [CONS] Routine Comment: Consulting Provider: Cardiology [place] Reason for Consult: ecurrent CP.. Had normal stress test in October 31 Time Notified: 09:30 Call Completed: Yes 12/26/18 10:54 Consult to Invasive Line Access Team [CONS] Routine Reason for Consult: Limited access Line Type: EPIV 12/26/18 14:56 Consult to Psychiatry [CONS] Routine Consulting Provider: Psychiatry [place] Reason consult: Other Other reason and/or additional details: Depression [place] Sl[place] initiated date and time: Time Notified: 14:57 Call Completed: Yes 12/26/18 15:37 Consult to Financial Sales Representative [CONS] Routine Reason for Consult: DEPRESSION Discharging clinician: Domingo Stallworth Anticipated date of discharge: 12/28/18 - Constitutional Vitals: Temp Pulse Resp BP Pulse Ox 98.3 F 58 14 112/55 98 12/28/18 11:57 12/28/18 11:57 12/28/18 11:57 12/28/18 11:57 12/28/18 11:57 General appearance: Present: A&O X 3, no acute distress Exam: see below - Head Head exam: Present: atraumatic, normocephalic - Eye Eye exam: Present: PERRL, conjuntiva pink, sclera anicteric Pupils: Present: PERRL - Neck Neck exam general surgery: Present: supple, trachea midline. Absent: lymphadenopathy - Respiratory Respiratory exam: Present: CTAB. Absent: accessory muscle use, rales, rhonchi, wheezes - Cardiovascular Cardiovascular exam: Present: RRR, +S1, +S2. Absent: diastolic murmur, gallop, rubs, systolic murmur - GI/Abdominal GI/Abdominal exam: Present: normal bowel sounds, soft, no peritoneal signs. Absent: distended, tenderness - Extremities Exam Extremities exam: Present: warm, radial pulses palpable and symmetrical. Absent: calf tenderness, cyanotic, pedal edema - Neurological Exam Neurological exam: Present: CN II-XII intact, oriented X3, no focal deficits. Absent: pronater drift, facial droop, speech deficit - Skin Skin exam: Present: dry, intact - Patient Status Disposition: Home, Self-Care Condition: Good Functional capacity at discharge: independent ambulation Overall status at discharge: patient is progressing back to baseline - Discharge Instructions Follow Up With: Cardiology Peggy [Provider Group] (Office will call with date and time of appointment. ) Joanne Paez MD [Primary Care Provider] - 12/30/18 3:00 pm - Diet and Activity Activity: resume usual activities as tolerated Diet: diabetic diet, low salt diet
--- NOTE | 2018-12-29 18:04 | Electrocardiograph Report ---
[address] [place] [address] Test Date: 2018-12-28 Pat Name: Christie Jacome Department: 113 Room: 3B45 Gender: F Home Appraiser: : 1965 Requested By: Chapincito Cristobal Order Number: [id number] Reading MD: Agueda Donald Measurements Intervals [place] Rate: 48 P: 42 NE: 142 QRS: 32 QRSD: 106 T: 22 QT: 475 QTc: 443 Interpretive Statements SINUS BRADYCARDIA POSSIBLE LATERAL MYOCARDIAL INFARCTION [30 ms Q WAVE IN I/aVL/V5/V6], PROBABLY OLD Electronically Signed On 12-29-2018 18:03:12 EDT by Agueda Donald
--- NOTE | 2018-12-30 14:53 | Electrocardiograph Report ---
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
--- NOTE | 2018-12-30 15:50 | Electrocardiograph Report ---
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
== END 2018-12-28 15:45 | disposition home or self-care (01) | DRG 201 ==
LOC: EMEROOARM 17:17 → 3BNU 17:17 → SUATTDRO 21:40 → 3BNU 22:16 → SUATTDRO 12-25 13:21
PROVIDERS: ADMIT Family Medicine; ATTEND Internal Medicine

== ENCOUNTER 2019-01-04 01:44 | Observation (INO) ==
--- NOTE | 2019-01-04 02:46 | Emergency Department Note ---
Disposition Clinical Impression: Atrial fibrillation with rapid ventricular response Chest pain Qualifiers: Chest pain type: unspecified Qualified Code(s): R07.9 - Chest pain, unspecified Disposition: Admitted As Inpatient Condition: Fair Time of Disposition: 06:19 Chest Pain HPI - General Chief Complaint: ED Chest Pain Stated Complaint: CP Time Seen by Provider: 01/04/19 02:34 Source: patient Mode of arrival: ambulatory Limitations: no limitations Vital Signs Reviewed: Yes Nursing Notes Reviewed: Yes - History of Present Illness HPI Narrative: 53-year-old female past medical history of paroxysmal atrial fibrillation on sotalol, aspirin and Pradaxa presenting for one day of sudden onset weakness, chest pain, shortness of breath, atrial fibrillation. Patient states that this evening approximately 9 or 10:00 she developed sudden onset weakness with chest pain and dyspnea which she states is consistent with prior episodes of atrial fibrillation. Patient states she is recently been placed on sotalol which she states makes her feel nauseated with generalized malaise. Patient feels that her sotalol medication may exacerbate her current symptoms. Patient states that these episodes are occurring more frequently lately and that she is not well controlled on her current medication regimen.. Patient has no other concerns or complaints at this time. Pt complaint: chest pain Onset (ago): hour(s) Duration: constant Onset: during rest Pain Location: substernal, left chest Severity: severe Severity scale (1-10): 10 Quality: sharp Pain Radiation: none Improves with: nothing Associated symptoms: Reports: dyspnea Treatments prior to arrival chest pain: aspirin, nitroglycerin (Patient states that she took 4 baby aspirins and nitroglycerin prior to presentation of the ED) - Related Data Home Medications Medication Instructions Recorded Confirmed Dabigatran Etexilate Mesylate 150 mg PO DAILY 05/12/17 01/04/19 [Pradaxa] Omeprazole [PriLOSEC] 40 mg PO DAILY 05/12/17 01/04/19 Albuterol Sulfate [Ventolin Hfa] 2 puff IH Q4H PRN 07/09/17 01/04/19 Insulin Glargine,Hum.rec.anlog 50 units SQ BID 11/18/17 01/04/19 [Basaglar Kwikpen U-100] Aspirin [Lo-Dose Aspirin EC] 81 mg PO DAILY 10/17/18 01/04/19 Gabapentin [Neurontin] 300 mg PO HS 12/23/18 01/04/19 Metformin HCl [Glucophage] 1,000 mg PO BID 12/23/18 01/04/19 clonazePAM [Clonazepam] 0.5 mg PO HS PRN 12/23/18 01/04/19 Previous Rx's Medication Instructions Recorded Lisinopril [Zestril] 5 mg PO DAILY tablet 06/20/17 Acetaminophen [Tylenol] 500 mg PO Q6HR PRN #20 tablet 09/09/17 Atorvastatin [Lipitor] 40 mg PO HS #30 tablet 12/28/18 FLUoxetine HCl [Prozac] 60 mg PO DAILY #120 capsule 12/28/18 Sotalol [Betapace] 80 mg PO Q12HR #60 tablet 12/28/18 Allergies Allergy/AdvReac Type Severity Reaction Status Date / Time No Known Allergies Allergy Verified 10/17/18 09:08 Review of Systems: *See History of Present Illness for more detail Constitutional: Denies: fever, chills Cardiovascular: Admits: chest pain Respiratory: Admits: dyspnea, denies: cough, hemoptysis Gastrointestinal: Admits to nausea Denies: abdominal pain, vomiting, diarrhea, constipation, hematemesis, melena, hematochezia Genitourinary: Denies: hematuria Musculoskeletal: Denies: back pain, neck pain Neurological: Admits: Lightheadedness, dizziness, weakness Denies: headache, numbness, paresthesias, difficulty with ambulation. Endocrine: Admits: fatigue All systems ED: reviewed and negative except as stated. Review of Systems: As Per HPI Chest Pain PMH - Past Medical History Medical history: Reports: atrial fibrillation, COPD, CVA, diabetes, hyperlipidemia, hypertension, myocardial infarction, renal disease, TIA, other Surgical history: Reports: cholecystectomy Psychiatric history: Reports: depression BRIM CURLER history: Reports: no BRIM CURLER history - Social History Smoking Status: Never smoker Alcohol use: Reports: occasionally Drug use: Reports: none Physical Exam Constitutional: No acute distress, [id number], engaged to conversation, speech is fluid, answers questions appropriately Neuro: GCS 15, no overt focal neurological deficits Head: Atraumatic, normocephalic Eyes: Pupils equal, round and reactive to light, no scleral icterus, no conjunctival injection Neck: Trachea midline without deviation. Anterior neck is supple without swelling. *Chest: Symmetric chest wall rise *Heart: Cardiac rhythm is irregularly irregular, rate is tachycardic with S1 and S2 , no S3 or S4 appreciated, no murmurs, gallops, rubs, or clicks. *Lungs: Lungs are clear to auscultation bilaterally, without accessory muscle use or prolonged expiratory phase. No wheezes, rhonchi or stridor appreciated. Abdomen: Abdomen is flat, soft to palpation, normal bowel sounds. No abdominal bruit auscultated. Non-distended, non-rigid, no organomegaly, no ascites appreciated. No pulsatile mass, no tenderness or guarding to palpation in all four quadrants, no rebound Extremities: Normal capillary refill without evidence of pedal edema, joint swelling or erythema. Pulses/motor/sensory intact in all 4 extremities. Psychiatric exam: Patient displays a normal affect and mood for the environment. No overt signs of hallucination. Integumentary: warm, dry, intact, normal color. No rash, cyanosis, diaphoresis, erythema, or pallor - General Limitations: no limitations General appearance: alert, in no apparent distress Course Course Narrative: Basic labs to include coags and troponin, EKG/old EKG, chest x-ray CT dissection study Treatments: Fentanyl Zofran IV fluids the management of patient's symptoms. Patient states she has previously taken aspirin and nitroglycerin for cardiac prophylaxis in the management of her pain. Patient states nitroglycerin did not provide relief. Vital Signs Temperature 97.6 F 01/04/19 01:45 Pulse Rate 104 01/04/19 01:45 Respiratory Rate 20 01/04/19 01:45 Blood Pressure 134/100 01/04/19 01:45 O2 Sat by Pulse Oximetry 99 01/04/19 01:45 Temperature 97.6 F 01/04/19 01:45 Pulse Rate 62 01/04/19 05:30 Respiratory Rate 19 01/04/19 05:30 Blood Pressure 117/65 01/04/19 05:30 O2 Sat by Pulse Oximetry 98 01/04/19 05:30 Oxygen Delivery Oxygen Delivery Room Air Chest Pain - MDM Narrative Medical decision making narrative: Patient EKG, laboratory and imaging results are negative for acute pathology. Patient spontaneously cardioverted into sinus rhythm, vitals are currently within normal limits and she patient is hemodynamically stable. Patient states that she continues to feel fatigued with generalized malaise, although her symptoms have improved while in the ED. Shared decision making was utilized regarding inpatient admission versus discharge home with patient stating that she feels uncomfortable with discharge at this time as she lives alone and feels that she is too weak to carry out daily activities as well as concerns or her cardiopulmonary status. Patient will be admitted to hospitalist medicine service for further evaluation and management of atrial fibrillation with rapid ventricular response. Patient will likely require cardiology consultation. Patient verbalizes understanding and agreement this plan. Patient is hemodynamically stable at the time of admission. - Lab Data Lab results reviewed: Yes I reviewed the patient's lab results. Result diagrams: 01/04/19 02:57 01/04/19 02:57 Lab Results 01/04/19 01/04/19 01/04/19 Range/Units 02:57 02:57 02:57 WBC 8.2 (4.3-11.1) K/mcL RBC 4.67 (3.82-4.97) M/mcL Hgb 12.9 (11.5-15.4) g/dL Hct 39.0 (35.3-44.9) % MCV 83.5 (83.0-100.0) fL MCH 27.6 L (28.0-33.3) pg MCHC 33.1 (31.6-35.5) g/dL RDW 13.2 (11.5-14.5) % Plt Count 242 (140-400) K/mcL MPV 10.1 (9.4-12.4) fL Immature Gran % 0.2 (0-4) % Seg Neutrophils % 62.9 % Lymphocytes % 30.8 % Monocytes % 4.4 % Eosinophils % 1.3 % Basophils % 0.4 % Neutrophils # 5.1 (1.6-8.9) K/mcL Lymphocytes # 2.5 (0.6-4.6) K/mcL Monocytes # 0.4 (0.0-1.3) K/mcL Eosinophils # 0.1 (0.0-0.6) K/mcL Basophils # 0.0 (0.0-0.2) K/mcL PT 10.4 (9.4-12.1) Seconds INR 0.9 APTT 30.3 (26.0-36.0) Seconds Sodium 137 (136-145) mEq/L Potassium 3.6 (3.5-5.1) mEq/L Chloride 106 (98-107) mEq/L Carbon Dioxide 20 L (23-29) mEq/L BUN 17 (6-20) mg/dL Creatinine 0.48 L (0.60-1.20) mg/dL Est GFR ( Amer) > 60 (> 60) Est GFR (Non-Af Amer) > 60 (> 60) BUN/Creatinine Ratio 35 H (6-26) Glucose 290 H (70-105) mg/dL Calculated Osmolality 296 (280-300) Calcium 9.2 (8.6-10.3) mg/dL Troponin I < 0.03 (< 0.04) ng/mL - Radiology Data Radiology results reviewed: Yes I reviewed the patient's radiology results. Chest X-Ray 01/04/19 01:47 IMPRESSION: No acute cardiopulmonary disease. D/ / Johnson Gee MD / Johnson Gee MD Interpreting Provider: Johnson Gee MD Dissection 01/04/19 02:57 IMPRESSION: No dissection or other acute process. D/ / Los Potts MD / Los Potts MD Interpreting Provider: Los Potts MD - EKG Data EKG attestation: Yes I reviewed and interpreted this EKG. EKG results narrative: Patient EKG shows atrial fibrillation with rapid ventricular response at a ventricular rate of 117 bpm, QRS duration of 91 ms, QT/QTc intervals of 336/406 ms respectively. There are no significant ST segment elevations, depressions, pathologic Q waves, abnormal T-wave inversions, nor any other signs of acute ischemic change. This EKG that was performed today is generally consistent with prior EKG performed on 12/28/2018. Heart Score - Score History: Moderately Suspicious EKG: Normal Age: 45-65 Risk Factors: No risk factors known Troponin: Less than normal limit HEART Score Total: 2
[2019-01-04] MEDS ORDERED: Isovue-370 500 ML BOTTLE IVP ONE (02:57)
[2019-01-04 03:11] LABS: Basophils % 0.4 %; Eosinophils # 0.1 K/mcL (0.0-0.6); Eosinophils % 1.3 %; Hemoglobin 12.9 g/dL (11.5-15.4); Immature Granulocytes % 0.2 % (0-4); Lymphocytes # 2.5 K/mcL (0.6-4.6); Lymphocytes % 30.8 %; Mean Corpuscular HGB Conc 33.1 g/dL (31.6-35.5); Mean Corpuscular Hemoglobin 27.6 pg (28.0-33.3); Mean Corpuscular Volume 83.5 fL (83.0-100.0); Mean Platelet Volume 10.1 fL (9.4-12.4); Monocytes # 0.4 K/mcL (0.0-1.3); Monocytes % 4.4 %; Neutrophils # 5.1 K/mcL (1.6-8.9); Platelet Count 242 K/mcL (140-400); Red Blood Count 4.67 M/mcL (3.82-4.97); Red Cell Distribution Width 13.2 % (11.5-14.5); Segmented Neutrophils % 62.9 %; White Blood Count 8.2 K/mcL (4.3-11.1)
[2019-01-04 03:21] LABS: INR 0.9; Prothrombin Time 10.4 Seconds (9.4-12.1)
[2019-01-04 03:24] LABS: Activated Partial Thrombo Time 30.3 Seconds (26.0-36.0)
[2019-01-04 03:31] LABS: BUN/Creatinine Ratio 35 (6-26); Blood Urea Nitrogen 17 mg/dL (6-20); Calcium 9.2 mg/dL (8.6-10.3); Carbon Dioxide 20 mEq/L (23-29); Chloride 106 mEq/L (98-107); Glucose 290 mg/dL (70-105); Osmolality,Calculated 296 (280-300); Potassium 3.6 mEq/L (3.5-5.1); Sodium 137 mEq/L (136-145); Troponin I < 0.03 ng/mL (< 0.04); eGFR For African Americans > 60 (> 60); eGFR For Non-African Americans > 60 (> 60)
[2019-01-04] MEDS ORDERED: *HR* FentaNYL (PF) 100 MCG/2 ML VIAL IVP ONE ×2 (04:08→06:03)
[2019-01-04] MEDS ORDERED: Naloxone 0.4 MG/ML INJ IVP PRN (07:25)
[2019-01-04] MEDS ORDERED: Ondansetron 4 MG/2 ML VIAL IVP PRN (07:25)
[2019-01-04] MEDS ORDERED: *HR* Dextrose 50 % in Water (Syg) 50 ML SYRINGE IVP PRN (07:27)
[2019-01-04] MEDS ORDERED: D5% in Water 1,000 ML IVC PRN (07:27)
[2019-01-04] MEDS ORDERED: Dextrose Gel 15 GM/37.5 ML TUBE PO PRN ×2 (07:27)
--- NOTE | 2019-01-04 07:37 | Emergency Department Note ---
Disposition Clinical Impression: Atrial fibrillation with rapid ventricular response Chest pain Qualifiers: Chest pain type: unspecified Qualified Code(s): R07.9 - Chest pain, unspecified Disposition: Admitted As Inpatient Condition: Fair Time of Disposition: 06:19 General Adult HPI - General Chief complaint: ED Chest Pain Stated complaint: CP Time Seen by Provider: 01/04/19 02:34 Source: patient Mode of arrival: ambulatory Limitations: no limitations Nursing Notes Reviewed: Yes Vital Signs Reviewed: Yes - History of Present Illness Pain Scale: 2 - Related Data Home Medications Medication Instructions Recorded Confirmed Dabigatran Etexilate Mesylate 150 mg PO DAILY 05/12/17 01/04/19 [Pradaxa] Omeprazole [PriLOSEC] 40 mg PO DAILY 05/12/17 01/04/19 Albuterol Sulfate [Ventolin Hfa] 2 puff IH Q4H PRN 07/09/17 01/04/19 Insulin Glargine,Hum.rec.anlog 50 units SQ BID 11/18/17 01/04/19 [Basaglar Kwikpen U-100] Aspirin [Lo-Dose Aspirin EC] 81 mg PO DAILY 10/17/18 01/04/19 Gabapentin [Neurontin] 300 mg PO HS 12/23/18 01/04/19 Metformin HCl [Glucophage] 1,000 mg PO BID 12/23/18 01/04/19 clonazePAM [Clonazepam] 0.5 mg PO HS PRN 12/23/18 01/04/19 Previous Rx's Medication Instructions Recorded Lisinopril [Zestril] 5 mg PO DAILY tablet 06/20/17 Acetaminophen [Tylenol] 500 mg PO Q6HR PRN #20 tablet 09/09/17 Atorvastatin [Lipitor] 40 mg PO HS #30 tablet 12/28/18 FLUoxetine HCl [Prozac] 60 mg PO DAILY #120 capsule 12/28/18 Sotalol [Betapace] 80 mg PO Q12HR #60 tablet 12/28/18 Allergies Allergy/AdvReac Type Severity Reaction Status Date / Time No Known Allergies Allergy Verified 10/17/18 09:08 Past Medical History - Past Medical History Medical history: Reports: atrial fibrillation, COPD, CVA, diabetes, hyperlipidemia, hypertension, myocardial infarction, renal disease, TIA, other Surgical history: Reports: cholecystectomy Psychiatric history: Reports: depression [employer] history: Reports: no [employer] CH[employer] history - Social History Smoking Status: Never smoker Smokeless Tobacco Status: No Alcohol use: Reports: occasionally Drug use: Reports: none Physical Exam - General Limitations: no limitations General appearance: alert, in no apparent distress Course Vital Signs Temperature 97.6 F 01/04/19 01:45 Pulse Rate 104 01/04/19 01:45 Respiratory Rate 20 01/04/19 01:45 Blood Pressure 134/100 01/04/19 01:45 O2 Sat by Pulse Oximetry 99 01/04/19 01:45 Temperature 97.9 F 01/04/19 06:53 Pulse Rate 65 01/04/19 06:53 Respiratory Rate 14 01/04/19 06:53 Blood Pressure 125/59 01/04/19 06:53 O2 Sat by Pulse Oximetry 97 01/04/19 06:53 Oxygen Delivery Oxygen Delivery Room Air Medical Decision Making - Medical Records Medical records reviewed: Yes I reviewed the patient's medical records. - Lab Data Lab results reviewed: Yes I reviewed the patient's lab results. Result diagrams: 01/04/19 02:57 01/04/19 02:57 Lab Results 01/04/19 01/04/19 01/04/19 Range/Units 02:57 02:57 02:57 WBC 8.2 (4.3-11.1) K/mcL RBC 4.67 (3.82-4.97) M/mcL Hgb 12.9 (11.5-15.4) g/dL Hct 39.0 (35.3-44.9) % MCV 83.5 (83.0-100.0) fL MCH 27.6 L (28.0-33.3) pg MCHC 33.1 (31.6-35.5) g/dL RDW 13.2 (11.5-14.5) % Plt Count 242 (140-400) K/mcL MPV 10.1 (9.4-12.4) fL Immature Gran % 0.2 (0-4) % Seg Neutrophils % 62.9 % Lymphocytes % 30.8 % Monocytes % 4.4 % Eosinophils % 1.3 % Basophils % 0.4 % Neutrophils # 5.1 (1.6-8.9) K/mcL Lymphocytes # 2.5 (0.6-4.6) K/mcL Monocytes # 0.4 (0.0-1.3) K/mcL Eosinophils # 0.1 (0.0-0.6) K/mcL Basophils # 0.0 (0.0-0.2) K/mcL PT 10.4 (9.4-12.1) Seconds INR 0.9 APTT 30.3 (26.0-36.0) Seconds Sodium 137 (136-145) mEq/L Potassium 3.6 (3.5-5.1) mEq/L Chloride 106 (98-107) mEq/L Carbon Dioxide 20 L (23-29) mEq/L BUN 17 (6-20) mg/dL Creatinine 0.48 L (0.60-1.20) mg/dL Est GFR ( Amer) > 60 (> 60) Est GFR (Non-Af Amer) > 60 (> 60) BUN/Creatinine Ratio 35 H (6-26) Glucose 290 H (70-105) mg/dL Calculated Osmolality 296 (280-300) Calcium 9.2 (8.6-10.3) mg/dL Troponin I < 0.03 (< 0.04) ng/mL - Radiology Data Radiology results reviewed: Yes I reviewed the patient's radiology results. Chest X-Ray 01/04/19 01:47 IMPRESSION: No acute cardiopulmonary disease. D/ / Johnson Gee MD / Johnson Gee MD Interpreting Provider: Johnson Gee MD Dissection 01/04/19 02:57 IMPRESSION: No dissection or other acute process. D/ / Los Potts MD / Los Potts MD Interpreting Provider: Los Potts MD - EKG Data EKG #1 EKG attestation: Yes I reviewed and interpreted this EKG. EKG results narrative: EKG shows atrial fibrillation with rapid ventricular response. Ventricular rate 117. No significant ST segment elevation or depression. Attestation Statement - Attestation Attestation: I, Juice Meyers MD, personally evaluated this patient and discussed their management with the resident physician. I reviewed the resident's note and agree with the documented findings, medical decision making, and plan of care. I reviewed the residents documentation and agree with the residents assessment and plan of care. I have personally had face to face time with the patient. I personally supervised and was present for the nguyen/critical portions of the following procedures completed by the resident: EKG interpretation. Patient is a 53-year-old female who presents to the emergency department with a complaint of chest pain and severe mid back pain associated with generalized weakness and shortness of breath. Some palpitations. She has a history of recurrent paroxysmal atrial fibrillation and states the symptoms are feel like her episodes of atrial fibrillation. She complains of generalized weakness and fatigue which she has had intermittently over the past several weeks and it seems to be getting progressively worse. She feels this may be related to her medication. On examination patient is a well-developed well-nourished female in no acute dis tress. She is alert and oriented 3. There is no cyanosis or diaphoresis. Breath sounds are clear and equal bilaterally. Heart regular rate and rhythm. Abdomen soft and nontender with normal bowel sounds. EKG shows atrial fibrillation with RVR with ventricular rate of 117. No acute ischemic changes. Chest x-ray negative. A CTA dissection study was obtained due to the patient's severe back pain and was negative for dissection or other acute abnormality. Labs reviewed and unremarkable. Troponin negative. Results discussed with patient and she does not feel comfortable going home and feels like she needs some type of medication adjustment to control her atrial fibrillation. The hospitalist, Dr. Singleton, was consulted and accepted admission of the patient.
[2019-01-04] MEDS: Aspirin Enteric Coated 81 MG Tablet PO SCH (08:12)
[2019-01-04] MEDS: FLUoxetine 20 MG CAPSULE PO SCH (08:12)
[2019-01-04] MEDS: Insulin LISPRO 300 UNITS/3 ML VIAL SQ SCH ×4 (08:13→21:40)
[2019-01-04] MEDS ORDERED: *HR* Dabigatran 150 MG CAPSULE PO SCH (09:00)
--- NOTE | 2019-01-04 09:58 | Cardiology Consult Note ---
Date of Encounter: 01/04/19 Time of Encounter: 09:55 Assessment and Plan (1) Paroxysmal atrial fibrillation Current Visit: No Status: Chronic Presents with intermittent chest pain, SOB, and fatigue, symptoms are the same as she felt with her atrial fibrillation previously. A-Fib RVR rate 117 on arrival. CTA negative. Loop recorder in place, checked last week and showed frequent PAF over the last two months. Flecainide was stopped and started on Sotalol 80mg BID. Reports compliance. Anticoagulated on Pradaxa. Nuclear stress test October 2018- Negative for ischemia. TTE October 2018- EF 60%, mild MR. [facility] 2012- normal coronaries. Pt now back in SR, HR 60s-80s at bedside. Will increase Sotalol to 120mg BID for PAF. Will need daily ECGs to monitor QTc. Needs monitored x 5 doses. Baseline ECG 01/04 0904 SR HR 57, QT/QTc 437/432ms. Will discuss and review with Dr. Dow. (2) Chest pain Current Visit: Yes Status: Acute Suspect secondary to A-Fib as above. Troponin negative x 2. ECG no ischemic changes. Nuclear Stress test October 2018- Negative for ischemia. TTE October 2018- EF 60%, mild MR. [facility] 2012- normal coronaries. Qualifiers: Chest pain type: unspecified Qualified Code(s): R07.9 - Chest pain, unspecified Discussion w patient/family: The assessment and plan as outlined above was discussed with the patient and/or family members who expressed understanding and agreement. All questions were answered. Thank you for involving us in the care of your patient. Please call with any questions. I will discuss all the above with Dr. Dow and make changes as necessary. History of Present Illness Consult date: 01/04/19 Requesting physician: Pete Madden Consult reason: PAF History of present illness: Ms. Jacome is a 53 year old female with PMH of PAF s/p afib ablation in 2015, on pradaxa for anticoagulation, loop recorder, CVA, COPD, and diabetes. She presented to ED with c/o intermittent chest pain, SOB, palpitations and fatigue that started last night. Found to be in atrial fibrillation with RVR on arrival. Symptoms are the same as she felt with her atrial fibrillation previously. Stress test and echocardiogram was completed in October of this year for similar symptoms. She was evaluated by cardiology and EP last week for PAF during her stay. A loop recorder check was completed and showed frequent PAF over the last two months. Flecainide was stopped last week and started Sotalol 80mg BID. She reports compliance. Cardiology consulted for further recs. CTA negative. Now back in SR. Prior cardiac testing: Stress test October 2018- Negative for ischemia. TTE October 2018- EF 60%, mild MR. [facility] 2011- normal coronaries. Past Med Surg Social Fam HX - Past Medical History Medical history: atrial fibrillation, COPD, CVA, diabetes, hyperlipidemia, hypertension, myocardial infarction, renal disease, TIA, other Additional medical history: c-diff, cervialgia, Loop recorder, cervico-occipital neurolgia-cerebral hemorrhage,. anemia, spasmadic torticollis. ANTOINETTE. resp iratory failure. dydfunctional uterine bleed, obesity, conversion disorder, left sided weakness from previous CVA Psychiatric history: depression - Past Surgical History Surgical History: cholecystectomy Additional surgical history: loop recorder and cardiac ablasion - Social History Smoking Status: Never smoker Smokeless Tobacco Status: No Alcohol use: occasionally Drug use: none - Family History Mother Living Status: Hx Family Cardiac Disorders: Yes Hx Family Respiratory Disorders: Yes (copd) Hx Family Cancer: Yes (lung cancer) Hx Family Endocrine Disorder: Yes (DM type II) Father Adopted: No Family Member Ethnicity: Non- Living Status: Hx Family Cardiac Disorders: Yes Hx Family Respiratory Disorders: Yes Hx Family Cancer: Yes (LUNG) Hx Family GI Disorders: No Hx Family Endocrine Disorder: Yes (DM) Hx Family Neuromuscular Disorders: No Hx Family Neurologic Disorders: No Hx Family HEENT Disorders: No Hx Family Autoimmune Disorders: No Medications and Allergies Dabigatran Etexilate Mesylate [Pradaxa] 150 mg PO DAILY 05/12/17 [History] Omeprazole [PriLOSEC] 40 mg PO DAILY 05/12/17 [History] Lisinopril [Zestril] 5 mg PO DAILY tablet 06/20/17 [Rx] Albuterol Sulfate [Ventolin Hfa] 2 puff IH Q4H PRN 07/09/17 [History] Acetaminophen [Tylenol] 500 mg PO Q6HR PRN #20 tablet 09/09/17 [Rx] Insulin Glargine,Hum.rec.anlog [Basaglar Kwikpen U-100] 50 units SQ BID 11/18/17 [History] Aspirin [Lo-Dose Aspirin EC] 81 mg PO DAILY 10/17/18 [History] Gabapentin [Neurontin] 300 mg PO HS 12/23/18 [History] Metformin HCl [Glucophage] 1,000 mg PO BID 12/23/18 [History] clonazePAM [Clonazepam] 0.5 mg PO HS PRN 12/23/18 [History] Atorvastatin [Lipitor] 40 mg PO HS #30 tablet 12/28/18 [Rx] FLUoxetine HCl [Prozac] 60 mg PO DAILY #120 capsule 12/28/18 [Rx] Sotalol [Betapace] 80 mg PO Q12HR #60 tablet 12/28/18 [Rx] Allergy/AdvReac Type Severity Reaction Status Date / Time No Known Allergies Allergy Verified 10/17/18 09:08 All Systems Review: The remainder of the systems were reviewed and are negative - Constitutional Constitutional: fatigue - Cardiovascular Cardiovascular: as per HPI, chest pain at rest, chest pain with exertion, dyspnea at rest, dyspnea on exertion, palpitations - Respiratory Respiratory: dyspnea Physical Examination Vital Signs, Last 4 Hours Temp Pulse Resp BP Pulse Ox 01/04/19 06:53 97.9 F 65 14 125/59 97 01/04/19 06:22 60 18 123/61 97 Vital Signs Temp Pulse Resp BP Pulse Ox 01/04/19 06:53 97.9 F 65 14 125/59 97 01/04/19 06:22 60 18 123/61 97 01/04/19 05:30 62 19 117/65 98 01/04/19 05:00 68 19 118/53 98 01/04/19 04:30 72 20 142/71 96 01/04/19 04:06 63 18 132/66 100 01/04/19 02:31 67 16 125/75 98 01/04/19 01:45 97.6 F 104 20 134/100 99 Intake and Output 01/03/19 01/04/19 01/04/19 23:59 07:59 15:59 Intake Total 0 / 120 120 / 120 Output Total 200 / 200 Balance -200 / -80 120 / -80 Intake: Oral 0 / 120 120 / 120 Output: Urine 200 / 200 Other: Meal Breakfast Percent of Meal Consumed 80% Weight 86 kg Blood Glucose* 280 Patient Weight 01/04/19 23:59 Weight 86 kg General: Conversant, No Apparent Distress HEENT: Atraumatic, Normocephaly, Mucus Membranes Moist Neck: No JVD, Normal carotid pulses Cardiac: Reg Rate and Rhythm, Normal S1 and S2, No Murmur Lungs: Normal Breath Sounds, No Wheeze, Rales, Rhonchi Neuro: Alert and responsive, No focal deficits noted Abdomen: Soft, Non-Tender Skin: No rashes noted on visualized skin Musculoskeletal: No Chest Wall Tenderness Extremities: No Clubbing, No Cyanosis, No Edema, Normal Pulses Results 01/04/19 02:57 01/04/19 02:57 Lab Results 01/04/19 01/04/19 01/04/19 02:57 02:57 02:57 WBC 8.2 Hgb 12.9 Hct 39.0 Plt Count 242 INR 0.9 APTT 30.3 Sodium 137 Potassium 3.6 Chloride 106 Carbon Dioxide 20 L BUN 17 Creatinine 0.48 L Glucose 290 H Calcium 9.2 Troponin I < 0.03 01/04/19 08:56 WBC Hgb Hct Plt Count INR APTT Sodium Potassium Chloride Carbon Dioxide BUN Creatinine Glucose Calcium Troponin I < 0.03 Short CBC 01/04/19 Range/Units 02:57 WBC 8.2 (4.3-11.1) K/mcL Hgb 12.9 (11.5-15.4) g/dL Hct 39.0 (35.3-44.9) % Plt Count 242 (140-400) K/mcL Neutrophils # 5.1 (1.6-8.9) K/mcL BMP Active Medications Acetaminophen (Tylenol) 500 mg PO Q6HR PRN PRN Reason: Pain Stop: 07/06/19 07:25 Albuterol Sulfate (Albuterol Inhaler) 2 puff IH Q4H PRN PRN Reason: Shortness Of Breath Stop: 07/06/19 07:25 Aspirin (Aspirin Ec) 81 mg PO DAILY [facility] Stop: 07/06/19 09:01 Last Admin: 01/04/19 08:12 Dose: 81 mg Documented by: Atorvastatin Calcium (Lipitor) 40 mg PO HS [facility] Stop: 07/06/19 21:01 Clonazepam (Klonopin) 0.5 mg PO HS PRN PRN Reason: Anxiety Stop: 12/23/19 07:25 Dabigatran (Pradaxa) 150 mg PO DAILY [facility] Stop: 07/06/19 09:01 Last Admin: 01/04/19 08:12 Dose: 150 mg Documented by: Dextrose/Water (Dextrose 50% (Syg)) 25 ml IVP AD PRN PRN Reason: Hypoglycemia Stop: 07/06/19 07:28 Fluoxetine HCl (Prozac) 60 mg PO DAILY [facility]; Protocol Stop: 07/06/19 09:01 Last Admin: 01/04/19 08:12 Dose: 60 mg Documented by: Gabapentin (Neurontin) 300 mg PO HS [facility] Stop: 07/06/19 21:01 Glucagon (Glucagen) 1 mg IM ONCE PRN PRN Reason: Hypoglycemia Stop: 07/06/19 07:28 Glucose (Gluctose) 15 gm PO ONCE PRN PRN Reason: Hypoglycemia Stop: 07/06/19 07:28 Glucose (Gluctose) 30 gm PO ONCE PRN PRN Reason: Hypoglycemia Stop: 07/06/19 07:28 Dextrose (Dextrose 5%) 1,000 mls @ 100 mls/hr IVC .Q10H PRN PRN Reason: HYPOGLYCEMIA Stop: 07/06/19 07:28 Insulin Detemir (Levemir) 25 unit SQ BID [facility] Stop: 07/06/19 09:01 Insulin Human Lispro (Humalog) 0 units SQ TIDAC [facility]; Protocol Stop: 07/06/19 07:31 Last Admin: 01/04/19 08:13 Dose: 10 units Documented by: Insulin Human Lispro (Humalog) 0 units SQ HS [facility]; Protocol Stop: 07/06/19 21:01 Lisinopril (Zestril) 5 mg PO DAILY [facility]; Protocol Stop: 07/06/19 09:01 Last Admin: 01/04/19 08:12 Dose: 5 mg Documented by: Naloxone HCl (Narcan) 0.4 mg IVP Q2MPRN PRN PRN Reason: SEE COMMENTS Stop: 07/06/19 07:26 Omeprazole (Prilosec) 40 mg PO DAILY [facility] Stop: 07/06/19 09:01 Last Admin: 01/04/19 08:12 Dose: 40 mg Documented by: Ondansetron HCl (Zofran) 4 mg IVP Q8HR PRN PRN Reason: Nausea And Vomiting Stop: 07/06/19 07:26 Sotalol HCl (Betapace) 80 mg PO Q12HR [facility] Stop: 07/06/19 18:01 01/04/19 Range/Units 02:57 Sodium 137 (136-145) mEq/L Potassium 3.6 (3.5-5.1) mEq/L Chloride 106 (98-107) mEq/L Carbon Dioxide 20 L (23-29) mEq/L BUN 17 (6-20) mg/dL Creatinine 0.48 L (0.60-1.20) mg/dL Glucose 290 H (70-105) mg/dL Calcium 9.2 (8.6-10.3) mg/dL Cardiac Enzymes 01/04/19 01/04/19 Range/Units 08:56 02:57 Troponin I < 0.03 < 0.03 (< 0.04) ng/mL Impressions Chest X-Ray 01/04/19 01:47 IMPRESSION: No acute cardiopulmonary disease. D/ / Johnson Gee MD / Johnson Gee MD Interpreting Provider: Johnson Gee MD Dissection 01/04/19 02:57 IMPRESSION: No dissection or other acute process. D/ / Los Potts MD / Los Potts MD Interpreting Provider: Los Potts MD - Imaging and Cardiology Stress Test: report reviewed Echo: report reviewed - EKG Interpretation EKG results cardiology: personally reviewed (A-Fib RVR rate 117) Consult Discharge Plan - Plan Referrals: Juice Meyers MD [Primary Care Provider] -
--- NOTE | 2019-01-04 10:49 | Internal Med History&Physical ---
Date of Encounter: 01/04/19 Time of Encounter: 08:30 Internal Medicine - H&P: HPI Chief complaint: Palpitation Admitted From: Home History of present illness: Ms. Jacome is a 53 year old female with history of paroxysmal A. fib recently switched to sotalol, COPD, diabetes, hypertension, who presented to the ED with palpitation. Of note, she was recently discharged on 12/28 after being mx for afib with RVR when her flecainide was switched to sotalol per cardiology. She reports that she has sudden onset of palpitation last night at 9pm associated with dyspnea. It felt similar to the previous episode but "more intense". No radiation, no aggravating/relieving factors. Although she reported nausea in the ED, she currently denies any nausea/vomiting, fever/chills, or diaphoresis. No orthopnea, PND, or leg swelling. Denies any GI/ symptoms. In the ER, she was noted to be tachycardic in 117 but otherwise afebrile and hemodynamically s table. Labwork was again benign, troponin was negative, and EKG showed A. fib with RVR without STT changes concerning for ischemia. Patient had recent echocardiogram and stress tests within the last 3 months that were all unremarkable. She was not given any rate controlling agent and converted s pontaneously to normal sinus rhythm but was subsequently admitted to medical floor for further management. Past Med Surg Social Fam HX - Past Medical History Attestation: Yes The following information was validated with the patient. Medical history: atrial fibrillation, COPD, CVA, diabetes, hyperlipidemia, hypertension, myocardial infarction, TIA, other Additional medical history: c-diff, cervialgia, Loop recorder, cervico-occipital neurolgia-cerebral hemorrhage,. anemia, spasmadic torticollis. ANTOINETTE. respiratory failure. dydfunctional uterine bleed, obesity, conversion disorder, left sided weakness from previous CVA Psychiatric history: depression - Past Surgical History Surgical History: cholecystectomy Additional surgical history: loop recorder and cardiac ablasion - Social History Smoking Status: Never smoker Smokeless Tobacco Status: No Alcohol use: occasionally Drug use: none - Family History Mother Living Status: Hx Family Cardiac Disorders: Yes Hx Family Respiratory Disorders: Yes (copd) Hx Family Cancer: Yes (lung cancer) Hx Family Endocrine Disorder: Yes (DM type II) Father Adopted: No Family Member Ethnicity: Non- Living Status: Hx Family Cardiac Disorders: Yes Hx Family Respiratory Disorders: Yes Hx Family Cancer: Yes (LUNG) Hx Family GI Disorders: No Hx Family Endocrine Disorder: Yes (DM) Hx Family Neuromuscular Disorders: No Hx Family Neurologic Disorders: No Hx Family HEENT Disorders: No Hx Family Autoimmune Disorders: No Internal Medicine - H&P: Meds Dabigatran Etexilate Mesylate [Pradaxa] 150 mg PO DAILY 05/12/17 [History] Omeprazole [PriLOSEC] 40 mg PO DAILY 05/12/17 [History] Lisinopril [Zestril] 5 mg PO DAILY tablet 06/20/17 [Rx] Albuterol Sulfate [Ventolin Hfa] 2 puff IH Q4H PRN 07/09/17 [History] Acetaminophen [Tylenol] 500 mg PO Q6HR PRN #20 tablet 09/09/17 [Rx] Insulin Glargine,Hum.rec.anlog [Basaglar Kwikpen U-100] 50 units SQ BID 11/18/17 [History] Aspirin [Lo-Dose Aspirin EC] 81 mg PO DAILY 10/17/18 [History] Gabapentin [Neurontin] 300 mg PO HS 12/23/18 [History] Metformin HCl [Glucophage] 1,000 mg PO BID 12/23/18 [History] clonazePAM [Clonazepam] 0.5 mg PO HS PRN 12/23/18 [History] Atorvastatin [Lipitor] 40 mg PO HS #30 tablet 12/28/18 [Rx] FLUoxetine HCl [Prozac] 60 mg PO DAILY #120 capsule 12/28/18 [Rx] Sotalol [Betapace] 80 mg PO Q12HR #60 tablet 12/28/18 [Rx] Allergy/AdvReac Type Severity Reaction Status Date / Time No Known Allergies Allergy Verified 10/17/18 09:08 All Systems PM: A 10-system review of systems was performed and is negative for pertinent findings except as documented above in the HPI. - Constitutional Vitals: Temp Pulse Resp BP Pulse Ox 97.9 F 65 14 125/59 97 01/04/19 06:53 01/04/19 06:53 01/04/19 06:53 01/04/19 06:53 01/04/19 06:53 Exam: General: Alert and oriented, not in acute distress. HEENT:EOMI, pupils equal, round and reactive. Cardiovascular:Normal S1 & S2, No JVD. Pulse regular, borderline bradycardic Lungs: clear to auscultation, no wheezes/rales Abdomen:Soft, non-tender, no rigidity. Extremities:No deformity or swelling Neurological:Normal cognition and motor skills. Non-focal Skin:Normal color, no rash, no lesions. Pulses:Carotid and radial pulses normal +2. Rest of the physical exam is non contributory Internal Med - H&P Results - Labs CBC & Chem 7: 01/04/19 02:57 01/04/19 02:57 Labs: Short CBC 01/04/19 Range/Units 02:57 WBC 8.2 (4.3-11.1) K/mcL Hgb 12.9 (11.5-15.4) g/dL Hct 39.0 (35.3-44.9) % Plt Count 242 (140-400) K/mcL Neutrophils # 5.1 (1.6-8.9) K/mcL BMP 01/04/19 02:57 Sodium 137 Potassium 3.6 Chloride 106 Carbon Dioxide 20 L BUN 17 Creatinine 0.48 L Glucose 290 H Calcium 9.2 Cardiac Enzymes 01/04/19 01/04/19 Range/Units 02:57 08:56 Troponin I < 0.03 < 0.03 (< 0.04) ng/mL - Impressions ITS Impressions Chest X-Ray 01/04/19 01:47 IMPRESSION: No acute cardiopulmonary disease. D/ / Johnson Gee MD / Johnson Gee MD Interpreting Provider: Johnson Gee MD Dissection 01/04/19 02:57 IMPRESSION: No dissection or other acute process. D/ / Los Potts MD / Los Potts MD Interpreting Provider: Los Potts MD - Assessment and Plan (1) Atrial fibrillation with rapid ventricular response Current Visit: Yes Status: Acute Assessment and plan: transient episode, recently admitted for similar issue last week ACS ruled out, recent echo showed preserved EF. Stress test 10/2018 negative for ischemia or infarct (although she had chest tightness during the exam) spontaneously converted to NSR, borderline bradycardic switched to sotalol 80mg BID last week, will consult cardiology for possible uptitration on pradexa for AC (2) Chest pain Current Visit: Yes Status: Acute Assessment and plan: likely related to transient episode of RVR, ACS ruled out with serial troponins resume home meds Qualifiers: Chest pain type: unspecified Qualified Code(s): R07.9 - Chest pain, unspecified (3) COPD (chronic obstructive pulmonary disease) Current Visit: No Status: Chronic Assessment and plan: not in exacerbation PRN duoneb Qualifiers: COPD type: chronic bronchitis Chronic bronchitis type: unspecified Quali fied Code(s): J42 - Unspecified chronic bronchitis (4) Diabetes mellitus Current Visit: No Status: Chronic Assessment and plan: poorly controlled, A1c 11.9 10/2018 Hold off on metformin Basal bolus insulin with Levemir 25 units twice a day and moderate dose sliding scale Qualifiers: Diabetes mellitus type: type 2 Diabetes mellitus terminal gauger supervisor insulin use: with terminal gauger supervisor use Diabetes mellitus complication status: with hyperglycemia Qualified Code(s): E11.65 - Type 2 diabetes mellitus with hyperglycemia; Z79.4 - intermediate (current) use of insulin; Z79.4 - watermelon harvesting supervisor (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) use of insulin; Z79.4 - watermelon harvesting supervisor (current) use of insulin; Z79.4 - intermediate (current) use of insulin (5) Essential hypertension Current Visit: No Status: Chronic Assessment and plan: resume home meds (6) Obesity (BMI 30-39.9) Current Visit: No Status: Chronic Assessment and plan: lifestyle modifications emphasized (7) DVT prophylaxis Current Visit: No Status: Resolved Assessment and plan: on pradexa - Time Spent With Patient Total time spent is greater than 50% in coordination of care (as documented) at patient's floor/unit and/or counseling patient: 25 - 35 minutes
[2019-01-04] MEDS ORDERED: Ipratropium/Albuterol Neb 3 ML IH PRN (10:53)
[2019-01-04] MEDS: Insulin DETEMIR 100 UNIT/ML X5UNITS SQ SCH ×2 (11:43→21:40)
[2019-01-04] MEDS ORDERED: Chloraseptic Spray 177 ML BOTTLE MM PRN (13:16)
[2019-01-04] MEDS: Gabapentin 300 MG CAPSULE PO SCH (21:40)
[2019-01-04] MEDS: *HR* Dabigatran 150 MG CAPSULE PO SCH (21:40)
[2019-01-04] MEDS: clonazePAM 0.5 MG TABLET PO PRN (21:42)
[2019-01-05 07:39] LABS: Basophils % 0.4 %; Eosinophils # 0.1 K/mcL (0.0-0.6); Eosinophils % 1.2 %; Hematocrit 37.8 % (35.3-44.9); Hemoglobin 12.3 g/dL (11.5-15.4); Immature Granulocytes % 0.5 % (0-4); Lymphocytes # 1.4 K/mcL (0.6-4.6); Lymphocytes % 16.7 %; Mean Corpuscular HGB Conc 32.5 g/dL (31.6-35.5); Mean Corpuscular Hemoglobin 27.8 pg (28.0-33.3); Mean Corpuscular Volume 85.5 fL (83.0-100.0); Mean Platelet Volume 10.1 fL (9.4-12.4); Monocytes # 0.4 K/mcL (0.0-1.3); Monocytes % 4.3 %; Neutrophils # 6.3 K/mcL (1.6-8.9); Platelet Count 234 K/mcL (140-400); Red Blood Count 4.42 M/mcL (3.82-4.97); Red Cell Distribution Width 13.2 % (11.5-14.5); Segmented Neutrophils % 76.9 %; White Blood Count 8.2 K/mcL (4.3-11.1)
[2019-01-05 07:59] LABS: BUN/Creatinine Ratio 26 (6-26); Blood Urea Nitrogen 12 mg/dL (6-20); Calcium 9.1 mg/dL (8.6-10.3); Carbon Dioxide 22 mEq/L (23-29); Chloride 104 mEq/L (98-107); Glucose 153 mg/dL (70-105); Magnesium 1.7 mg/dL (1.6-2.6); Osmolality,Calculated 291 (280-300); Potassium 3.6 mEq/L (3.5-5.1); Sodium 139 mEq/L (136-145); eGFR For African Americans > 60 (> 60); eGFR For Non-African Americans > 60 (> 60)
[2019-01-05] MEDS: *HR* Dabigatran 150 MG CAPSULE PO SCH ×2 (08:57→20:38)
[2019-01-05] MEDS: Insulin LISPRO 300 UNITS/3 ML VIAL SQ SCH ×4 (08:58→20:39)
[2019-01-05] MEDS: FLUoxetine 20 MG CAPSULE PO SCH (08:58)
[2019-01-05] MEDS: Insulin DETEMIR 100 UNIT/ML X5UNITS SQ SCH ×2 (08:59→20:42)
[2019-01-05] MEDS: Aspirin Enteric Coated 81 MG Tablet PO SCH (09:54)
--- NOTE | 2019-01-05 10:08 | Internal Med Progress Note ---
Hospitalist Progress Note - Encounter Date of Encounter: 01/05/19 Time of Encounter: 08:00 - Subjective Interval History: No acute events overnight. Denies any recurrence of chest pain or palpitation. - Exam Vitals: Temp Pulse Resp BP Pulse Ox 98.4 F 56 16 113/60 97 01/05/19 07:10 01/05/19 07:10 01/05/19 07:10 01/05/19 07:10 01/05/19 07:10 Exam: General: Alert and oriented, not in acute distress. Cardiovascular:Normal S1 & S2, No JVD. Pulse regular, borderline bradycardic Lungs: clear to auscultation, no wheezes/rales Abdomen:Soft, non-tender, no rigidity. Extremities:No deformity or swelling Neurological:Normal cognition and motor skills. Non-focal - Assessment and Plan (1) Atrial fibrillation with rapid ventricular response Current Visit: Yes Status: Resolved Assessment and Plan: transient episode, recently admitted for similar issue last week ACS ruled out, recent echo showed preserved EF. Stress test 10/2018 negative for ischemia or infarct (although she had chest tightness during the exam) spontaneously converted to NSR, sinus bradycardia switched from flecainide to sotalol 80mg BID last week. Appreciate cardiology input, will uptitrate sotalol to 120mg BID EKG this morning showed QTc 450msec on pradexa for AC (2) Chest pain Current Visit: Yes Status: Acute Assessment and Plan: likely related to transient episode of RVR, ACS ruled out with serial troponins resume home meds (3) COPD (chronic obstructive pulmonary disease) Current Visit: No Status: Chronic Assessment and Plan: not in exacerbation PRN duoneb (4) Diabetes mellitus Current Visit: No Status: Chronic Assessment and Plan: poorly controlled, A1c 11.9 10/2018 Hold off on metformin Basal bolus insulin with Levemir 25 units twice a day and moderate dose sliding scale (5) Essential hypertension Current Visit: No Status: Chronic Assessment and Plan: resume home meds (6) Obesity (BMI 30-39.9) Current Visit: No Status: Chronic Assessment and Plan: lifestyle modifications emphasized (7) DVT prophylaxis Current Visit: No Status: Acute Assessment and Plan: on pradexa - Time Spent with Patient Total time spent is greater than 50% in coordination of care (as documented) at patient's floor/unit and/or counseling patient: 25 - 35 minutes Plan of Care Discussed with: patient Internal Medicine: Result - Labs CBC & Chem 7: 01/05/19 07:05 01/05/19 07:05 Labs: Short CBC 01/05/19 Range/Units 07:05 WBC 8.2 (4.3-11.1) K/mcL Hgb 12.3 (11.5-15.4) g/dL Hct 37.8 (35.3-44.9) % Plt Count 234 (140-400) K/mcL Neutrophils # 6.3 (1.6-8.9) K/mcL BMP 01/05/19 07:05 Sodium 139 Potassium 3.6 Chloride 104 Carbon Dioxide 22 L BUN 12 Creatinine 0.46 L Glucose 153 H Calcium 9.1 - ABG Interpretation ABG results: PT/INR, D-dimer PT 10.4 Seconds (9.4-12.1) 01/04/19 02:57 Consult Discharge Plan - Plan Referrals: Juice Meyers MD [Primary Care Provider] - (2) Chest pain Qualifiers: Chest pain type: unspecified Qualified Code(s): R07.9 - Chest pain, unspecified (3) COPD (chronic obstructive pulmonary disease) Qualifiers: COPD type: chronic bronchitis Chronic bronchitis type: unspecified Qualified Code(s): J42 - Unspecified chronic bronchitis (4) Diabetes mellitus Qualifiers: Diabetes mellitus type: type 2 Diabetes mellitus corporate strategy analyst insulin use: with corporate strategy analyst use Diabetes mellitus complication status: with hyperglycemia Qualified Code(s): E11.65 - Type 2 diabetes mellitus with hyperglycemia; Z79.4 - USP (current) use of insulin; Z79.4 - USP (current) use of insulin; Z79.4 - USP (current) use of insulin; Z79.4 - USP (current) use of insulin
--- NOTE | 2019-01-05 10:29 | Cardiology Progress Note ---
Date of Encounter: 01/05/19 Time of Encounter: 10:26 Assessment and Plan (1) Paroxysmal atrial fibrillation Current Visit: No Status: Chronic Presents with intermittent chest pain, SOB, and fatigue, symptoms are the same as she felt with her atrial fibrillation previously. A-Fib RVR rate 117 on arrival. Loop recorder in place, checked last week and showed frequent PAF over the last two months. Flecainide was stopped and started on Sotalol 80mg BID. Anticoagulated on Pradaxa. Nuclear stress test October 2018- Negative for ischemia. TTE 12/2018 EF preserved. [facility] 2011- normal coronaries. Pt now back in SR, HR 60s-80s at bedside. Increased Sotalol to 120mg BID for PAF. S/P 3 doses. Maintaining SR. Daily ECGs to monitor QTc. Needs monitored x 5 doses. Baseline ECG 01/04 0904 SR HR 57, QT/QTc 437/432ms. ECG 01/05 SR HR 59, QT/QTc 451/450ms. Continue to follow. (2) Chest pain Current Visit: Yes Status: Acute Suspect secondary to A-Fib as above. Troponin negative x 2. ECG no ischemic changes. Nuclear Stress test October 2018- Negative for ischemia. Limited TTE 12/2018 EF preserved. [facility] 2012- normal coronaries. Qualifiers: Chest pain type: unspecified Qualified Code(s): R07.9 - Chest pain, unspecified Discussion w patient/family: The assessment and plan as outlined above was discussed with the patient and/or family members who expressed understanding and agreement. All questions were a nswered. Thank you for involving us in the care of your patient. Please call with any questions. I will discuss all the above with Dr. Shah and make changes as necessary. Subjective Principal diagnosis: PAF Interval history: Report fatigue this AM. Objective Vital Signs, Last 4 Hours Temp Pulse Resp BP Pulse Ox 01/05/19 07:10 98.4 F 56 16 113/60 97 Vital Signs Temp Pulse Resp BP Pulse Ox 01/05/19 07:10 98.4 F 56 16 113/60 97 01/05/19 04:08 98.5 F 58 16 102/57 96 01/04/19 23:28 98.4 F 64 18 118/61 99 01/04/19 19:43 98.4 F 62 16 104/52 98 01/04/19 15:00 97.9 F 55 14 105/56 99 01/04/19 11:54 98.1 F 62 14 122/61 98 Intake and Output 01/04/19 01/05/19 01/05/19 23:59 07:59 15:59 Intake Total 660 / 1020 0 / 0 Output Total 0 / 500 0 / 0 Balance 660 / 520 0 / 0 Intake: Oral 660 / 1020 0 / 0 Output: Urine 0 / 500 0 / 0 Other: Meal Dinner Percent of Meal Consumed 50% Weight 86.1 kg Blood Glucose* 166 144 Patient Weight 01/05/19 23:59 Weight 86.1 kg General: Conversant, No Apparent Distress HEENT: Atraumatic, Normocephaly, Mucus Membranes Moist Neck: No JVD, Normal carotid pulses Cardiac: Reg Rate and Rhythm, Normal S1 and S2, No Murmur Lungs: Normal Breath Sounds, No Wheeze, Rales, Rhonchi Neuro: Alert and responsive, No focal deficits noted Abdomen: Soft, Non-Tender Skin: No rashes noted on visualized skin Musculoskeletal: No Chest Wall Tenderness Extremities: No Clubbing, No Cyanosis, No Edema, Normal Pulses Results 01/05/19 07:05 01/05/19 07:05 Lab Results 01/05/19 01/05/19 07:05 07:05 WBC 8.2 Hgb 12.3 Hct 37.8 Plt Count 234 Sodium 139 Potassium 3.6 Chloride 104 Carbon Dioxide 22 L BUN 12 Creatinine 0.46 L Glucose 153 H Calcium 9.1 Magnesium 1.7 Short CBC 01/05/19 Range/Units 07:05 WBC 8.2 (4.3-11.1) K/mcL Hgb 12.3 (11.5-15.4) g/dL Hct 37.8 (35.3-44.9) % Plt Count 234 (140-400) K/mcL Neutrophils # 6.3 (1.6-8.9) K/mcL BMP 01/05/19 Range/Units 07:05 Sodium 139 (136-145) mEq/L Potassium 3.6 (3.5-5.1) mEq/L Chloride 104 (98-107) mEq/L Carbon Dioxide 22 L (23-29) mEq/L BUN 12 (6-20) mg/dL Creatinine 0.46 L (0.60-1.20) mg/dL Glucose 153 H (70-105) mg/dL Calcium 9.1 (8.6-10.3) mg/dL Active Medications Acetaminophen (Tylenol) 500 mg PO Q6HR PRN PRN Reason: Pain Stop: 07/06/19 07:25 Last Admin: 01/04/19 13:28 Dose: 500 mg Documented by: Albuterol/Ipratropium (Duoneb) 3 ml IH [id number] PRN PRN Reason: Shortness Of Breath/Wheezing Stop: 07/06/19 10:54 Aspirin (Aspirin Ec) 81 mg PO DAILY LESLY Stop: 07/06/19 09:01 Last Admin: 01/05/19 09:54 Dose: 81 mg Documented by: Atorvastatin Calcium (Lipitor) 40 mg PO HS [facility] Stop: 07/06/19 21:01 Last Admin: 01/04/19 21:40 Dose: 40 mg Documented by: Clonazepam (Klonopin) 0.5 mg PO HS PRN PRN Reason: Anxiety Stop: 07/06/19 07:25 Last Admin: 01/04/19 21:42 Dose: 0.5 mg Documented by: Dabigatran (Pradaxa) 150 mg PO BID LESLY Stop: 07/06/19 21:01 Last Admin: 01/05/19 08:57 Dose: 150 mg Documented by: Dextrose/Water (Dextrose 50% (Syg)) 25 ml IVP AD PRN PRN Reason: Hypoglycemia Stop: 07/06/19 07:28 Fluoxetine HCl (Prozac) 60 mg PO DAILY [facility]; Protocol Stop: 07/06/19 09:01 Last Admin: 01/05/19 08:58 Dose: 60 mg Documented by: Gabapentin (Neurontin) 300 mg PO HS LESLY Stop: 07/06/19 21:01 Last Admin: 01/04/19 21:40 Dose: 300 mg Documented by: Glucagon (Glucagen) 1 mg IM ONCE PRN PRN Reason: Hypoglycemia Stop: 07/06/19 07:28 Glucose (Gluctose) 15 gm PO ONCE PRN PRN Reason: Hypoglycemia Stop: 07/06/19 07:28 Glucose (Gluctose) 30 gm PO ONCE PRN PRN Reason: Hypoglycemia Stop: 07/06/19 07:28 Dextrose (Dextrose 5%) 1,000 mls @ 100 mls/hr IVC .Q10H PRN PRN Reason: HYPOGLYCEMIA Stop: 07/06/19 07:28 Insulin Detemir (Levemir) 25 unit SQ BID [facility] Stop: 07/06/19 09:01 Last Admin: 01/05/19 08:59 Dose: 25 unit Documented by: Insulin Human Lispro (Humalog) 0 units SQ TIDAC [facility]; Protocol Stop: 07/06/19 07:31 Last Admin: 01/05/19 08:58 Dose: 4 units Documented by: Insulin Human Lispro (Humalog) 0 units SQ HS [facility]; Protocol Stop: 07/06/19 21:01 Last Admin: 01/04/19 21:40 Dose: Not Given Documented by: Lisinopril (Zestril) 5 mg PO DAILY [facility]; Protocol Stop: 07/06/19 09:01 Last Admin: 01/05/19 08:57 Dose: 5 mg Documented by: Multi-Ingredient Mucositis [place] (Chloraseptic) 1 spray MM QID PRN PRN Reason: Sore Throat Stop: 07/06/19 13:17 Last Admin: 01/04/19 16:46 Dose: 1 spray Documented by: Naloxone HCl (Narcan) 0.4 mg IVP Q2MPRN PRN PRN Reason: SEE COMMENTS Stop: 07/06/19 07:26 Omeprazole (Prilosec) 40 mg PO DAILY [facility] Stop: 07/06/19 09:01 Last Admin: 01/05/19 08:58 Dose: 40 mg Documented by: Ondansetron HCl (Zofran) 4 mg IVP Q8HR PRN PRN Reason: Nausea And Vomiting Stop: 07/06/19 07:26 Sotalol HCl (Betapace) 120 mg PO Q12H [facility] Stop: 07/06/19 10:16 Last Admin: 01/05/19 08:57 Dose: 120 mg Documented by: - EKG Interpretation EKG results cardiology: other (12 hr tele AVG HR 59, SR. No significant pauses or arrhythmias noted.) Consult Discharge Plan - Plan Referrals: Juice Meyers MD [Primary Care Provider] -
--- NOTE | 2019-01-05 12:52 | Electrocardiograph Report ---
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
--- NOTE | 2019-01-05 12:53 | Electrocardiograph Report ---
[address] [address] Test Date: 2019-01-04 Pat Name: Chritsie Jacome Department: 111 Room: [facility] Gender: F Puppy Trainer: mitch : 1965 Requested By: Pete Madden Order Number: [id number] Reading MD: Jewell Shah Measurements Intervals [place] Rate: 57 P: 55 [place]: 148 QRS: 37 QRSD: 101 T: 26 QT: 437 QTc: 432 Interpretive Statements SINUS BRADYCARDIA Electronically Signed On 01-05-2019 12:51:57 EDT by Jewell Shah
--- NOTE | 2019-01-05 13:22 | Electrocardiograph Report ---
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
[2019-01-05] MEDS: clonazePAM 0.5 MG TABLET PO PRN (20:37)
[2019-01-05] MEDS: Gabapentin 300 MG CAPSULE PO SCH (20:37)
[2019-01-06 08:03] VITALS: BP 121/62
--- NOTE | 2019-01-06 08:55 | Discharge Summary ---
- NOTES TO OUTPATIENT PROVIDER Notes to Outpatient Provider: Follow up with Cardiology as outpatient Orders not resulted at time of discharge: Pending orders 01/06/19 06:00 ECG 12 lead ECG [ECG] AM 0600 EKG [ECG 12 lead ECG] [ECG] AM 0600 01/07/19 06:00 ECG 12 lead ECG [ECG] AM 0600 Date of Encounter: 01/06/19 Time of Encounter: 07:15 - Discharge Diagnosis (1) Atrial fibrillation with rapid ventricular response Priority: Primary Status: Resolved (2) Chest pain Priority: Secondary Status: Acute Qualifiers: Chest pain type: unspecified Qualified Code(s): R07.9 - Chest pain, unspecified (3) COPD (chronic obstructive pulmonary disease) Priority: Secondary Status: Chronic Qualifiers: COPD type: chronic bronchitis Chronic bronchitis type: unspecified Qualified Code(s): J42 - Unspecified chronic bronchitis (4) Diabetes mellitus Priority: Secondary Status: Chronic Qualifiers: Diabetes mellitus type: type 2 Diabetes mellitus long-term insulin use: with pbx repairer use Diabetes mellitus complication status: with hyperglycemia Qualified Code(s): E11.65 - Type 2 diabetes mellitus with hyperglycemia; 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 Jacome is a 53 year old female with history of paroxysmal A. fib (recently switched to sotalol), COPD, diabetes, hypertension, who was admitted due to frequent episodes of palpitation and was found to be in afib with RVR. Of note, she was recently discharged on 12/28 after being mx for afib with RVR when her flecainide was switched to sotalol per cardiology. Spontaneously converted to N SR in the ED without any intervention. Seen in consultation with cardiology who uptitrated Sotalol to 120mg BID and was monitored for 5 doses while inpatient. She will need to follow up with Cardiology closely as outpatient. Discharge discussed with: patient, nurse, consultant nurse - Time Spent with Patient Total time spent providing and/or coordinating discharge services: 31 mins - Discharge Medications Prescriptions: New Sotalol [Betapace] 120 mg PO Q12H #90 tablet Dabigatran [Pradaxa] 150 mg PO BID #60 capsule Continued Omeprazole [PriLOSEC] 40 mg PO DAILY Lisinopril [Zestril] 5 mg PO DAILY tablet Albuterol Sulfate [Ventolin Hfa] 2 puff IH Q4H PRN PRN Reason: Shortness Of Breath Acetaminophen [Tylenol] 500 mg PO Q6HR PRN #20 tablet PRN Reason: Pain Insulin Glargine,Hum.rec.anlog [Basaglar Kwikpen U-100] 50 units SQ BID Aspirin [Lo-Dose Aspirin EC] 81 mg PO DAILY clonazePAM [Clonazepam] 0.5 mg PO HS PRN PRN Reason: Anxiety Gabapentin [Neurontin] 300 mg PO HS Metformin HCl [Glucophage] 1,000 mg PO BID Atorvastatin [Lipitor] 40 mg PO HS #30 tablet FLUoxetine HCl [Prozac] 60 mg PO DAILY #120 capsule Discontinued Dabigatran Etexilate Mesylate [Pradaxa] 150 mg PO DAILY Sotalol [Betapace] 80 mg PO Q12HR #60 tablet Home Medications: Omeprazole [PriLOSEC] 40 mg PO DAILY 05/12/17 [History] Lisinopril [Zestril] 5 mg PO DAILY tablet 06/20/17 [Rx] Albuterol Sulfate [Ventolin Hfa] 2 puff IH Q4H PRN 07/09/17 [History] Acetaminophen [Tylenol] 500 mg PO Q6HR PRN #20 tablet 09/09/17 [Rx] Insulin Glargine,Hum.rec.anlog [Basaglar Kwikpen U-100] 50 units SQ BID 11/18/17 [History] Aspirin [Lo-Dose Aspirin EC] 81 mg PO DAILY 10/17/18 [History] Gabapentin [Neurontin] 300 mg PO HS 12/23/18 [History] Metformin HCl [Glucophage] 1,000 mg PO BID 12/23/18 [History] clonazePAM [Clonazepam] 0.5 mg PO HS PRN 12/23/18 [History] Atorvastatin [Lipitor] 40 mg PO HS #30 tablet 12/28/18 [Rx] FLUoxetine HCl [Prozac] 60 mg PO DAILY #120 capsule 12/28/18 [Rx] Dabigatran [Pradaxa] 150 mg PO BID #60 capsule 01/06/19 [Rx] Sotalol [Betapace] 120 mg PO Q12H #90 tablet 01/06/19 [Rx] Allergies/Adverse Reactions: Allergy/AdvReac Type Severity Reaction Status Date / Time No Known Allergies Allergy Verified 01/04/19 16:05 Date of admission: 01/04/19 06:10 Primary care physician: Juice Meyers MD Consults: 01/04/19 09:33 Consult to Cardiology [CONS] Routine Comment: Consulting Provider: Cardiology Peggy Reason for Consult: afib rvr on sotalol Call Completed: Yes - Constitutional Vitals: Temp Pulse Resp BP Pulse Ox 97.7 F 59 16 121/62 95 01/06/19 04:54 01/06/19 07:56 01/06/19 07:56 01/06/19 07:56 01/06/19 07:56 Exam: General: Alert and oriented, not in acute distress. Cardiovascular:Normal S1 & S2, No JVD. Pulse regular, borderline bradycardic Lungs: clear to auscultation, no wheezes/rales Abdomen:Soft, non-tender, no rigidity. Extremities:No deformity or swelling Neurological:Normal cognition and motor skills. Non-focal - Patient Status Disposition: Home, Self-Care Condition: Fair Functional capacity at discharge: independent ambulation - Discharge Instructions Instructions: Atrial Fibrillation (DC), Chronic Obstructive Pulmonary Disease (DC), Diabetes Mellitus Type 2 in Adults (DC), Chronic Hypertension (DC) Follow Up With: Juice Meyers MD [Primary Care Provider] - - Diet and Activity Activity: resume usual activities as tolerated Diet: diabetic diet
[2019-01-06] MEDS: Insulin LISPRO 300 UNITS/3 ML VIAL SQ SCH (09:28)
[2019-01-06] MEDS: FLUoxetine 20 MG CAPSULE PO SCH (09:29)
[2019-01-06] MEDS: Aspirin Enteric Coated 81 MG Tablet PO SCH (09:31)
[2019-01-06] MEDS: *HR* Dabigatran 150 MG CAPSULE PO SCH (09:31)
[2019-01-06] MEDS: Insulin DETEMIR 100 UNIT/ML X5UNITS SQ SCH (09:44)
--- NOTE | 2019-01-06 09:51 | Cardiology Progress Note ---
Date of Encounter: 01/06/19 Time of Encounter: 09:48 Assessment and Plan (1) Paroxysmal atrial fibrillation Current Visit: No Status: Chronic Presents with intermittent chest pain, SOB, and fatigue, symptoms are the same as she felt with her atrial fibrillation previously. A-Fib RVR rate 117 on arrival. Recently started on Sotalol 80mg BID. (Previously failed Flecainide) Nuclear stress test October 2018- Negative for ischemia. TTE 12/2018 EF preserved. [facility] 2012- normal coronaries. Pt back in SR, HR 60s-80s at bedside. Increased Sotalol to 120mg BID for PAF. S/P 5 doses. Maintaining SR. Has been monitored for 5 doses and QTc remains stable. Cardiology signing off. Reconsult PRN. Will coordinate outpt follow-up in 2-3 weeks. (2) Chest pain Current Visit: Yes Status: Acute Suspect secondary to A-Fib as above. Troponin negative x 2. ECG no ischemic changes. Nuclear Stress test October 2018- Negative for ischemia. Limited TTE 12/2018 EF preserved. [facility] 2012- normal coronaries. Qualifiers: Chest pain type: unspecified Qualified Code(s): R07.9 - Chest pain, unspecified Discussion w patient/family: The assessment and plan as outlined above was discussed with the patient and/or family members who expressed understanding and agreement. All questions were answered. Thank you for involving us in the care of your patient. Please call with any questions. I will discuss all the above with Dr. Shah and make changes as necessary. Subjective Principal diagnosis: PAF Interval history: Reports feeling better this AM. Objective Vital Signs, Last 4 Hours Pulse Resp BP Pulse Ox 01/06/19 07:56 59 16 121/62 95 Vital Signs Temp Pulse Resp BP Pulse Ox 01/06/19 07:56 59 16 121/62 95 01/06/19 04:54 97.7 F 68 17 117/60 96 01/06/19 00:21 98.7 F 72 22 108/56 98 01/05/19 20:49 64 21 98/59 97 01/05/19 15:25 99.1 F 59 16 116/54 97 01/05/19 11:35 98.3 F 55 18 105/63 96 Intake and Output 01/05/19 01/06/19 01/06/19 23:59 07:59 15:59 Intake Total 360 / 960 0 / 240 240 / 240 Output Total 900 / 900 0 / 0 Balance -540 / 60 0 / 240 240 / 240 Intake: Oral 360 / 960 0 / 240 240 / 240 Output: Urine 900 / 900 0 / 0 Other: Meal Dinner Breakfast Percent of Meal Consumed 100% 100% Weight 86 kg Blood Glucose* 216 156 Patient Weight 01/06/19 23:59 Weight 86 kg General: Conversant, No Apparent Distress HEENT: Atraumatic, Normocephaly, Mucus Membranes Moist Neck: No JVD, Normal carotid pulses Cardiac: Reg Rate and Rhythm, Normal S1 and S2, No Murmur Lungs: Normal Breath Sounds, No Wheeze, Rales, Rhonchi Neuro: Alert and responsive, No focal deficits noted Abdomen: Soft, Non-Tender Skin: No rashes noted on visualized skin Musculoskeletal: No Chest Wall Tenderness Extremities: No Clubbing, No Cyanosis, No Edema, Normal Pulses Results 01/05/19 07:05 01/05/19 07:05 Active Medications Acetaminophen (Tylenol) 500 mg PO Q6HR PRN PRN Reason: Pain Stop: 07/06/19 07:25 Last Admin: 01/04/19 13:28 Dose: 500 mg Documented by: Albuterol/Ipratropium (Duoneb) 3 ml IH [id number] PRN PRN Reason: Shortness Of Breath/Wheezing Stop: 07/06/19 10:54 Aspirin (Aspirin Ec) 81 mg PO DAILY [facility] Stop: 07/06/19 09:01 Last Admin: 01/05/19 09:54 Dose: 81 mg Documented by: Atorvastatin Calcium (Lipitor) 40 mg PO HS [facility] Stop: 07/06/19 21:01 Last Admin: 01/05/19 20:37 Dose: 40 mg Documented by: Clonazepam (Klonopin) 0.5 mg PO HS PRN PRN Reason: Anxiety Stop: 07/06/19 07:25 Last Admin: 01/05/19 20:37 Dose: 0.5 mg Documented by: Dabigatran (Pradaxa) 150 mg PO BID [facility] Stop: 07/06/19 21:01 Last Admin: 01/05/19 20:38 Dose: 150 mg Documented by: Dextrose/Water (Dextrose 50% (Syg)) 25 ml IVP AD PRN PRN Reason: Hypoglycemia Stop: 07/06/19 07:28 Fluoxetine HCl (Prozac) 60 mg PO DAILY [facility]; Protocol Stop: 07/06/19 09:01 Last Admin: 01/05/19 08:58 Dose: 60 mg Documented by: Gabapentin (Neurontin) 300 mg PO HS [facility] Stop: 07/06/19 21:01 Last Admin: 01/05/19 20:37 Dose: 300 mg Documented by: Glucagon (Glucagen) 1 mg IM ONCE PRN PRN Reason: Hypoglycemia Stop: 07/06/19 07:28 Glucose (Gluctose) 15 gm PO ONCE PRN PRN Reason: Hypoglycemia Stop: 07/06/19 07:28 Glucose (Gluctose) 30 gm PO ONCE PRN PRN Reason: Hypoglycemia Stop: 07/06/19 07:28 Dextrose (Dextrose 5%) 1,000 mls @ 100 mls/hr IVC .Q10H PRN PRN Reason: HYPOGLYCEMIA Stop: 07/06/19 07:28 Insulin Detemir (Levemir) 25 unit SQ BID [facility] Stop: 07/06/19 09:01 Last Admin: 01/05/19 20:42 Dose: 25 unit Documented by: Insulin Human Lispro (Humalog) 0 units SQ TIDAC [facility]; Protocol Stop: 07/06/19 07:31 Last Admin: 01/05/19 16:58 Dose: 4 units Documented by: Insulin Human Lispro (Humalog) 0 units SQ HS [facility]; Protocol Stop: 07/06/19 21:01 Last Admin: 01/05/19 20:39 Dose: 3 units Documented by: Lisinopril (Zestril) 5 mg PO DAILY [facility]; Protocol Stop: 07/06/19 09:01 Last Admin: 01/05/19 08:57 Dose: 5 mg Documented by: Multi-Ingredient Mucositis Marshall (Chloraseptic) 1 spray MM QID PRN PRN Reason: Sore Throat Stop: 07/06/19 13:17 Last Admin: 01/04/19 16:46 Dose: 1 spray Documented by: Naloxone HCl (Narcan) 0.4 mg IVP Q2MPRN PRN PRN Reason: SEE COMMENTS Stop: 07/06/19 07:26 Omeprazole (Prilosec) 40 mg PO DAILY [facility] Stop: 07/06/19 09:01 Last Admin: 01/05/19 08:58 Dose: 40 mg Documented by: Ondansetron HCl (Zofran) 4 mg IVP Q8HR PRN PRN Reason: Nausea And Vomiting Stop: 07/06/19 07:26 Sotalol HCl (Betapace) 120 mg PO Q12H [facility] Stop: 07/06/19 10:16 Last Admin: 01/05/19 21:59 Dose: 120 mg Documented by: - EKG Interpretation EKG results cardiology: other (12 hr tele AVG HR 64, SR) Consult Discharge Plan - Plan Instructions: Atrial Fibrillation (DC), Diabetes Mellitus Type 2 in Adults (DC), Chronic Obstructive Pulmonary Disease (DC), Chronic Hypertension (DC) Referrals: Juice Meyers MD [Primary Care Provider] - Prescriptions: Sotalol [Betapace] 120 mg PO Q12H #90 tablet Dabigatran [Pradaxa] 150 mg PO BID #60 capsule
== END 2019-01-06 12:48 | disposition home or self-care (01) ==
LOC: EMEROOARM 01:44 → 2NENU 01:44 → SUATTDRO 06:10 → 2NENU 06:42
PROVIDERS: ADMIT Internal Medicine; ATTEND Internal Medicine

== ENCOUNTER 2019-02-09 15:41 | Observation (INO) ==
--- NOTE | 2019-02-09 16:13 | Emergency Department Note ---
Disposition Clinical Impression: Chest pain Qualifiers: Qualified Code(s): R07.9 - Disposition: Admitted As Inpatient Condition: Fair Time of Disposition: 07:56 Chest Pain HPI - General Chief Complaint: ED Chest Pain Stated Complaint: chest pain - History of Present Illness HPI Narrative: Patient is a 53-year-old female presents to the emergency room with complaints of chest pain. The patient states the chest pain started about 2:00 in the morning. The patient states that she has had pain before. The patient states that she is felt fatigued as well. The patient denies any vomiting, denies any severe shortness of breath. The patient states that she always sweats. The patient states her pain is a 9. She tried to take 2 nitroglycerin and 4 aspirin at home prior to arrival, nitroglycerin did not help. The patient states the pain does radiate to her back. The patient denies any abdominal pain. She denies any other or GI complaints. She denies any leg pain or swelling. Patient denies any focal weakness or focal numbness. Patient states that she has been worked up from a cardiac standpoint numerous occasions in the past. Patient currently is wearing a heart monitor. Severity scale (1-10): 9 - Related Data Home Medications Medication Instructions Recorded Confirmed Omeprazole [PriLOSEC] 40 mg PO DAILY 05/12/17 02/11/19 Albuterol Sulfate [Ventolin Hfa] 2 puff IH Q4H PRN 07/09/17 02/11/19 Insulin Glargine,Hum.rec.anlog 50 units SQ BID 11/18/17 02/11/19 [Basaglar Kwikpen U-100] Gabapentin [Neurontin] 300 mg PO HS 12/23/18 02/11/19 Metformin HCl [Glucophage] 1,000 mg PO BID 12/23/18 01/04/19 clonazePAM [Clonazepam] 0.5 mg PO HS 12/23/18 02/11/19 Sotalol [Betapace] 120 mg PO Q12H 02/09/19 02/11/19 Acetaminophen [Tylenol] 650 mg PO DAILY PRN 02/11/19 02/11/19 Aspirin 324 mg PO QAM 02/11/19 02/11/19 Tizanidine HCl 4 mg PO TID PRN 02/11/19 02/11/19 Previous Rx's Medication Instructions Recorded Lisinopril [Zestril] 5 mg PO DAILY tablet 06/20/17 Atorvastatin [Lipitor] 40 mg PO HS #30 tablet 12/28/18 FLUoxetine HCl [Prozac] 60 mg PO DAILY #120 capsule 12/28/18 Dabigatran [Pradaxa] 150 mg PO BID #60 capsule 01/06/19 hydrOXYzine pamoate [Vistaril] 25 mg PO TID 4 Days #12 capsule 02/03/19 Allergies Allergy/AdvReac Type Severity Reaction Status Date / Time No Known Allergies Allergy Verified 02/11/19 11:15 Review of Systems: As mentioned per history of present illness and as follows. Constitutional: Negative for chills or fever HENT: Negative for sore throat. Eyes: Negative for visual disturbance Respiratory: Negative for shortness of breath. Cardiovascular: Negative for palpitations. Gastrointestinal: Negative for abdominal pain Genitourinary: Negative for dysuria Musculoskeletal: Negative for back pain. Skin: Negative for rash. Neurological: Negative for focal weakness Psychiatric/Behavioral: Negative for depression Chest Pain PMH - Past Medical History Medical history: Reports: atrial fibrillation, COPD, CVA, diabetes, hyperlipidemia, hypertension, myocardial infarction, TIA, other Surgical history: Reports: cholecystectomy Psychiatric history: Reports: depression BACON SLICER history: Reports: no BACON SLICER history - Social History Smoking Status: Never smoker Alcohol use: Reports: occasionally Drug use: Reports: none Physical Exam PHYSICAL EXAM Constitutional: Well developed, Well nourished, No acute distress, Non-toxic appearance. HENT: Normocephalic, Atraumatic, Bilateral external ears normal, Oropharynx moist, No oral exudates, Nose normal. Neck- Normal range of motion, No tenderness, Supple. Eyes: PERRL, EOMI, Conjunctiva normal,. Cardiovascular: Regular rate and rhythm without clicks, rubs, gallops or murmurs. Respiratory: Normal breath sounds, No respiratory distress, No wheezing, rhonchi, or crackles. GI: Soft, nontender, no evidence of guarding or peritoneal signs. Bowel sounds are active. Musculoskeletal: Good range of motion in all major joints. No tenderness to p alpation or major deformities noted. The patient does have tenderness in the mid chest wall that does replicate her pain. +5/5 strength noted to all extremities. Integument: Warm, Dry, No erythema, No rash. No edema. Neurologic: Alert & oriented x 3, Normal sensory function, No focal deficits noted. CN II-XII grossly intact. Course Vital Signs Temperature 98.0 F 02/09/19 15:42 Pulse Rate 74 02/09/19 15:42 Respiratory Rate 20 02/09/19 15:42 Blood Pressure 133/73 02/09/19 15:42 O2 Sat by Pulse Oximetry 97 02/09/19 15:42 Temperature 97.6 F 02/11/19 07:30 Pulse Rate 60 02/11/19 07:30 Respiratory Rate 16 02/11/19 07:30 Blood Pressure 119/62 02/11/19 07:30 O2 Sat by Pulse Oximetry 97 02/11/19 07:30 Oxygen Delivery Oxygen Delivery Room Air Chest Pain - MDM Narrative Medical decision making narrative: EKG was performed that showed sinus rhythm 65 beats a minute, the patient does have slight ST segment depression noted in lead 2, the 3, aVF, V3, V4, V5 and V6. I do not see significant ST segment elevation. MN and QT intervals do appear to be within normal limits. Interpreted by myself. Given the Ekg changes the patient is going to be admitted. Current workup otherwise is negative. Patient is low risk from the standpoint of PE. Do not see any signs of infection or dissection. Currently awaiting hospitalist contact. Case was turned over to Dr. Castro. Final Impression: Chest Pain, precordial. - Lab Data Result diagrams: 02/11/19 00:58 02/11/19 00:58 Lab Results 02/09/19 02/09/19 02/09/19 Range/Units 16:15 16:15 16:15 WBC 6.5 (4.3-11.1) K/mcL RBC 4.70 (3.82-4.97) M/mcL Hgb 13.2 (11.5-15.4) g/dL Hct 38.6 (35.3-44.9) % MCV 82.1 L (83.0-100.0) fL MCH 28.1 (28.0-33.3) pg MCHC 34.2 (31.6-35.5) g/dL RDW 12.9 (11.5-14.5) % Plt Count 246 (140-400) K/mcL MPV 10.2 (9.4-12.4) fL Immature Gran % 0.2 (0-4) % Seg Neutrophils % 68.6 % Lymphocytes % 22.7 % Monocytes % 6.9 % Eosinophils % 1.1 % Basophils % 0.5 % Neutrophils # 4.5 (1.6-8.9) K/mcL Lymphocytes # 1.5 (0.6-4.6) K/mcL Monocytes # 0.5 (0.0-1.3) K/mcL Eosinophils # 0.1 (0.0-0.6) K/mcL Basophils # 0.0 (0.0-0.2) K/mcL PT 11.8 (9.4-12.1) Seconds INR 1.0 APTT 31.9 (26.0-36.0) Seconds Sodium 136 (136-145) mEq/L Potassium 3.1 L (3.5-5.1) mEq/L Chloride 100 (98-107) mEq/L Carbon Dioxide 24 (23-29) mEq/L BUN 12 (6-20) mg/dL Creatinine 0.67 (0.60-1.20) mg/dL Est GFR ( Amer) > 60 (> 60) Est GFR (Non-Af Amer) > 60 (> 60) BUN/Creatinine Ratio 18 (6-26) Glucose 387 H (70-105) mg/dL Calculated Osmolality 298 (280-300) Calcium 9.6 (8.6-10.3) mg/dL Magnesium 1.6 (1.6-2.6) mg/dL Troponin I < 0.03 (< 0.04) ng/mL
[2019-02-09] MEDS ORDERED: Morphine Sulfate 2 MG/ML SYRINGE IVP ONE (16:25)
[2019-02-09] MEDS ORDERED: Ondansetron 4 MG/2 ML VIAL IVP ONE (16:25)
[2019-02-09 16:38] LABS: Basophils % 0.5 %; Eosinophils # 0.1 K/mcL (0.0-0.6); Eosinophils % 1.1 %; Hematocrit 38.6 % (35.3-44.9); Hemoglobin 13.2 g/dL (11.5-15.4); Immature Granulocytes % 0.2 % (0-4); Lymphocytes # 1.5 K/mcL (0.6-4.6); Lymphocytes % 22.7 %; Mean Corpuscular HGB Conc 34.2 g/dL (31.6-35.5); Mean Corpuscular Hemoglobin 28.1 pg (28.0-33.3); Mean Corpuscular Volume 82.1 fL (83.0-100.0); Mean Platelet Volume 10.2 fL (9.4-12.4); Monocytes # 0.5 K/mcL (0.0-1.3); Monocytes % 6.9 %; Neutrophils # 4.5 K/mcL (1.6-8.9); Platelet Count 246 K/mcL (140-400); Red Cell Distribution Width 12.9 % (11.5-14.5); Segmented Neutrophils % 68.6 %; White Blood Count 6.5 K/mcL (4.3-11.1)
[2019-02-09 16:46] LABS: Prothrombin Time 11.8 Seconds (9.4-12.1)
[2019-02-09 16:49] LABS: Activated Partial Thrombo Time 31.9 Seconds (26.0-36.0)
[2019-02-09 16:54] LABS: BUN/Creatinine Ratio 18 (6-26); Blood Urea Nitrogen 12 mg/dL (6-20); Calcium 9.6 mg/dL (8.6-10.3); Carbon Dioxide 24 mEq/L (23-29); Chloride 100 mEq/L (98-107); Glucose 387 mg/dL (70-105); Osmolality,Calculated 298 (280-300); Potassium 3.1 mEq/L (3.5-5.1); Sodium 136 mEq/L (136-145); eGFR For African Americans > 60 (> 60); eGFR For Non-African Americans > 60 (> 60)
[2019-02-09 16:55] LABS: Troponin I < 0.03 ng/mL (< 0.04)
[2019-02-09] MEDS ORDERED: Aspirin 81 MG TAB.CHEW PO STA (17:03)
[2019-02-09] MEDS ORDERED: *HR* HYDROmorphone (PF) 1 MG/ML SYRINGE IVP ONE ×2 (17:18→21:28)
[2019-02-09] MEDS ORDERED: Isovue-370 500 ML BOTTLE IVP ONE (17:18)
[2019-02-09 17:29] LABS: Magnesium 1.6 mg/dL (1.6-2.6)
--- NOTE | 2019-02-09 18:22 | Emergency Department Note ---
Disposition Clinical Impression: Chest pain Disposition: Admitted As Inpatient Condition: Fair Referrals: Joanne Paez MD [Primary Care Provider] - Forms: ED Satisfaction Letter Time of Disposition: 21:30 General Adult HPI - General Chief complaint: ED Chest Pain Stated complaint: chest pain Time Seen by Provider: 02/09/19 15:56 Source: patient Limitations: no limitations - History of Present Illness Pain Scale: 9 - Related Data Home Medications Medication Instructions Recorded Confirmed Omeprazole [PriLOSEC] 40 mg PO DAILY 05/12/17 02/09/19 Albuterol Sulfate [Ventolin Hfa] 2 puff IH Q4H PRN 07/09/17 02/09/19 Insulin Glargine,Hum.rec.anlog 50 units SQ BID 11/18/17 02/09/19 [Basaglar Kwikpen U-100] Aspirin [Lo-Dose Aspirin EC] 81 mg PO DAILY 10/17/18 02/09/19 Gabapentin [Neurontin] 300 mg PO HS 12/23/18 02/09/19 Metformin HCl [Glucophage] 1,000 mg PO BID 12/23/18 02/09/19 clonazePAM [Clonazepam] 0.5 mg PO HS PRN 12/23/18 02/09/19 Sotalol [Betapace] 80 mg PO Q12H 02/09/19 02/09/19 Previous Rx's Medication Instructions Recorded Lisinopril [Zestril] 5 mg PO DAILY tablet 06/20/17 Acetaminophen [Tylenol] 500 mg PO Q6HR PRN #20 tablet 09/09/17 Atorvastatin [Lipitor] 40 mg PO HS #30 tablet 12/28/18 FLUoxetine HCl [Prozac] 60 mg PO DAILY #120 capsule 12/28/18 Dabigatran [Pradaxa] 150 mg PO BID #60 capsule 01/06/19 hydrOXYzine pamoate [Vistaril] 25 mg PO TID 4 Days #12 capsule 02/03/19 Allergies Allergy/AdvReac Type Severity Reaction Status Date / Time No Known Allergies Allergy Verified 01/04/19 16:05 Past Medical History - Past Medical History Medical history: Reports: atrial fibrillation, COPD, CVA, diabetes, hyperlipidemia, hypertension, myocardial infarction, TIA, other Surgical history: Reports: cholecystectomy Psychiatric history: Reports: depression [employer] history: Reports: no [employer] history - Social History Smoking Status: Never smoker Smokeless Tobacco Status: No Alcohol use: Reports: occasionally Drug use: Reports: none Physical Exam - General Limitations: no limitations General appearance: alert, in no apparent distress Course Course Narrative: 52-year-old male taken in sign out from the daytime physician Dr. Martinez. Patient was initially describing chest pain that started about 2 AM this morning. She felt a heaviness and pain that radiates into her back. She has had this on and off multiple times over the last year. She was seen at [facility] and placed on a heart monitor secondary to describe palpitations. Patient has not followed up with them at this time and does not want to go back to that facility. Patient is still describing the discomfort and pain after morphine. She took 3 nitroglycerin prior to coming in and did not alleviate her symptoms. Patient has midsternal pain that radiates into her back. CT imaging of the head secondary to the dizziness as well as as well as CT angiogram of the chest. Repeat EKG was ordered by myself. Initial troponin laboratory workup are unremarkable. There are evaluation to be completed and the patient will be admitted. No other acute issues noted at this time. Disposition pending the treatment course. Aspirin has been given. Patient is not on any blood thinners at this point. We will continue to monitor here until symptoms are controlled treatment has been established. Initial EKG was reviewed and shows no acute signs of ST segment elevation but does have diffuse depression. Patient will be monitored here until pain is controlled admission process to be established. No critical care applied the patient's treatment course at this time. Patient also did note that she walks across her house she gets significant pain in her chest is been worse over the last 12 hours. She does not have any significant symptoms that she is sitting still but they are worse with exertion. - Reevaluation(s) Reevaluation #1: CT angiography the chest is unremarkable for acute issues outside of a pulmonary nodule. Patient will be informed of this. CT the head is negative. Pain is much better after the second dose of pain medication this time. No visible cardiac related source the symptoms noted at this time. Disposition will be admission. Hospitalist has been paged at this time Time: 21:14 Reevaluation #2: Patient was discussed with the hospitalist Dr. Sam. Patient is artery operative accident. Single dose of pain medicine will be given again. Review the patient's most recent echocardiogram and Maribel as well as cardiology evaluation of her paroxysmal A. fib were discussed. CT angiography the chest is unremarkable as well as CT the head. Patient's labs of been stable. Patient will be admitted for symptomatic control and evaluation. Patient is otherwise in no distress. Patient be monitored here in the emergency room until the admission process is completed. No other acute issues noted during my evaluation. Patient is stable Time: 21:30 Vital Signs Temperature 98.0 F 02/09/19 15:42 Pulse Rate 74 02/09/19 15:42 Respiratory Rate 20 02/09/19 15:42 Blood Pressure 133/73 02/09/19 15:42 O2 Sat by Pulse Oximetry 97 02/09/19 15:42 Temperature 98.0 F 02/09/19 16:14 Pulse Rate 74 02/09/19 16:14 Respiratory Rate 20 02/09/19 16:14 Blood Pressure 133/73 02/09/19 16:14 O2 Sat by Pulse Oximetry 97 02/09/19 16:14 Oxygen Delivery Oxygen Delivery Room Air Medical Decision Making - MDM Narrative Medical decision making narrative: Chest pain - Medical Records Medical records reviewed: Yes I reviewed the patient's medical records. - Lab Data Lab results reviewed: Yes I reviewed the patient's lab results. Result diagrams: 02/09/19 16:15 02/09/19 16:15 Lab Results 02/09/19 02/09/19 02/09/19 Range/Units 16:15 16:15 16:15 WBC 6.5 (4.3-11.1) K/mcL RBC 4.70 (3.82-4.97) M/mcL Hgb 13.2 (11.5-15.4) g/dL Hct 38.6 (35.3-44.9) % MCV 82.1 L (83.0-100.0) fL MCH 28.1 (28.0-33.3) pg MCHC 34.2 (31.6-35.5) g/dL RDW 12.9 (11.5-14.5) % Plt Count 246 (140-400) K/mcL MPV 10.2 (9.4-12.4) fL Immature Gran % 0.2 (0-4) % Seg Neutrophils % 68.6 % Lymphocytes % 22.7 % Monocytes % 6.9 % Eosinophils % 1.1 % Basophils % 0.5 % Neutrophils # 4.5 (1.6-8.9) K/mcL Lymphocytes # 1.5 (0.6-4.6) K/mcL Monocytes # 0.5 (0.0-1.3) K/mcL Eosinophils # 0.1 (0.0-0.6) K/mcL Basophils # 0.0 (0.0-0.2) K/mcL PT 11.8 (9.4-12.1) Seconds INR 1.0 APTT 31.9 (26.0-36.0) Seconds Sodium 136 (136-145) mEq/L Potassium 3.1 L (3.5-5.1) mEq/L Chloride 100 (98-107) mEq/L Carbon Dioxide 24 (23-29) mEq/L BUN 12 (6-20) mg/dL Creatinine 0.67 (0.60-1.20) mg/dL Est GFR ( Amer) > 60 (> 60) Est GFR (Non-Af Amer) > 60 (> 60) BUN/Creatinine Ratio 18 (6-26) Glucose 387 H (70-105) mg/dL Calculated Osmolality 298 (280-300) Calcium 9.6 (8.6-10.3) mg/dL Magnesium 1.6 (1.6-2.6) mg/dL Troponin I < 0.03 (< 0.04) ng/mL - Radiology Data Radiology results reviewed: Yes I reviewed the patient's radiology results. Chest x-ray is unremarkable. CT the head and CT angiography reviewed and no acute etiology noted - EKG Data EKG #1 EKG attestation: Yes I reviewed and interpreted this EKG. EKG results narrative: EKG #2 shows stable heart rate of 54. Sinus rhythm. TX interval 135. QRS duration 103. QTC of 455. Kaiser is normal. No changes in the ST segment depression that was noted prior. No acute signs of ST segment elevation or abnormality. No acute signs of WPW or Brugada syndrome. No active infarct at this point. EKG #2 EKG attestation: Yes I reviewed and interpreted this EKG. EKG results narrative: EKG #2 shows stable heart rate of 54. Sinus rhythm. TX interval 135. QRS duration 103. QTC of 455. Kaiser is normal. No changes in the ST segment depression that was noted prior. No acute signs of ST segment elevation or abnormality. No acute signs of WPW or Brugada syndrome. No active infarct at this point.
[2019-02-09] MEDS ORDERED: *HR* FentaNYL (PF) 100 MCG/2 ML VIAL IVP ONE (22:23)
[2019-02-10] MEDS ORDERED: Naloxone 0.4 MG/ML INJ IVP PRN (04:36)
[2019-02-10] MEDS ORDERED: Dextrose Gel 15 GM/37.5 ML TUBE PO PRN ×2 (04:41)
[2019-02-10] MEDS ORDERED: *HR* Dextrose 50 % in Water (Syg) 50 ML SYRINGE IVP PRN (04:41)
[2019-02-10] MEDS ORDERED: D5% in Water 1,000 ML IVC PRN (04:41)
[2019-02-10] MEDS ORDERED: Melatonin 3 MG TABLET PO PRN (04:55)
--- NOTE | 2019-02-10 04:55 | Internal Med History&Physical ---
Date of Encounter: 02/10/19 Time of Encounter: 03:30 Internal Medicine - H&P: HPI Chief complaint: Chest pain Admitted From: Emergency Dept Plans for Post Hospital Care: Home History of present illness: Ms. Jacome is a 53 year old female Patient presented to the emergency department with chest pain and palpitations. The pain started early in the morning, and it was similar to pain that she had had previously. She has been wearing a Holter monitor for the last 5 days because she has been having near syncope and weakness. She sees a jig borer in [place]. She has a history of atrial fibrillation status post ablation, however she still is in atrial fibrillation. She states that she can tell when she goes in and out of atrial fibrillation. And she has chest pain/pressure that radiates to her back. She had taken 2 nitroglycerin tablets and for aspirin before coming to the hospital. The nitroglycerin did not help her pain. In the emergency department patient's initial vital signs were within normal l imits. CBC unremarkable BMP notable for potassium of 3.1 and a glucose of 387. INR 1.0. Initial troponin undetectable, repeat troponin also undetectable. Magnesium 1.6 Calcium 9.6 Chest x-ray showed no acute cardiopulmonary process CT angiogram of the chest showed no evidence of pulmonary embolism, but there was a 3 mm right upper lobe pulmonary nodule. Head CT negative for intracranial abnormality. EKG: Sinus rhythm diffuse ST depressions, heart rate 60, QTC 477 ms. Repeat EKG showed similar. In the emergency department patient was given 324 mg of aspirin, 50 g of fentanyl, IV Dilaudid And 40 mEq of potassium. During her emergency department visit she did have an episode of bradycardia which was captured on telemetry with a rate into the 40s. Cardiology was called regarding the patient's heart rate. Dr. Marco Antonio Brooks recommended patient continue her sotalol, and they would see the patient in the morning. Patient was admitted to the hospital for further management. Upon my evaluation, patient is resting comfortably in the hospital bed in mild distress. Upon arrival to the hospital floor she did go into atrial fibrillation, and EKG was performed at that time. The rate was 93, with a QTC of 421. She continues to have ST depressions. She then converted back to sinus rhythm. Patient continued to have slight chest pain with radiation to her back. She had some left lower quadrant abdominal pain, which she says is chronic. She has nausea and vomiting and history of irritable bowel syndrome. She takes per DEXA for her atrial fibrillation. She states that she has a history of lung cancer in most of the members of her family. Her sister has diabetes. Patient is also diabetic. She is a DNR/DNI. Past Med Surg Social Fam HX - Past Medical History Medical history: atrial fibrillation, COPD, CVA, diabetes, hyperlipidemia, hypertension, myocardial infarction, TIA, other Additional medical history: c-diff, cervialgia, Loop recorder, cervico-occipital neurolgia-cerebral hemorrhage,. anemia, spasmadic torticollis. ANTOINETTE. respiratory failure. dydfunctional uterine bleed, obesity, conversion disorder, left sided weakness from previous CVA Psychiatric history: depression - Past Surgical History Surgical History: cholecystectomy Additional surgical history: loop recorder and cardiac ablasion - Social History Smoking Status: Never smoker Smokeless Tobacco Status: No Alcohol use: occasionally Drug use: none - Family History Mother Living Status: Hx Family Cardiac Disorders: Yes Hx Family Respiratory Disorders: Yes (copd) Hx Family Cancer: Yes (lung cancer) Hx Family Endocrine Disorder: Yes (DM type II) Father Adopted: No Family Member Ethnicity: Non- Living Status: Hx Family Cardiac Disorders: Yes Hx Family Respiratory Disorders: Yes Hx Family Cancer: Yes (LUNG) Hx Family GI Disorders: No Hx Family Endocrine Disorder: Yes Hx Family Neuromuscular Disorders: No Hx Family Neurologic Disorders: No Hx Family HEENT Disorders: No Hx Family Autoimmune Disorders: No Internal Medicine - H&P: Meds Omeprazole [PriLOSEC] 40 mg PO DAILY 05/12/17 [History] Lisinopril [Zestril] 5 mg PO DAILY tablet 06/20/17 [Rx] Albuterol Sulfate [Ventolin Hfa] 2 puff IH Q4H PRN 07/09/17 [History] Acetaminophen [Tylenol] 500 mg PO Q6HR PRN #20 tablet 09/09/17 [Rx] Insulin Glargine,Hum.rec.anlog [Basaglar Kwikpen U-100] 50 units SQ BID 11/18/17 [History] Aspirin [Lo-Dose Aspirin EC] 81 mg PO DAILY 10/17/18 [History] Gabapentin [Neurontin] 300 mg PO HS 12/23/18 [History] Metformin HCl [Glucophage] 1,000 mg PO BID 12/23/18 [History] clonazePAM [Clonazepam] 0.5 mg PO HS PRN 12/23/18 [History] Atorvastatin [Lipitor] 40 mg PO HS #30 tablet 12/28/18 [Rx] FLUoxetine HCl [Prozac] 60 mg PO DAILY #120 capsule 12/28/18 [Rx] Dabigatran [Pradaxa] 150 mg PO BID #60 capsule 01/06/19 [Rx] hydrOXYzine pamoate [Vistaril] 25 mg PO TID 4 Days #12 capsule 02/03/19 [Rx] Sotalol [Betapace] 80 mg PO Q12H 02/09/19 [History] Allergy/AdvReac Type Severity Reaction Status Date / Time No Known Allergies Allergy Verified 01/04/19 16:05 All Systems PM: A 10-system review of systems was performed and is negative for pertinent findings except as documented above in the HPI. - Constitutional Vitals: Temp Pulse Resp BP Pulse Ox 97.5 F L 96 16 130/79 95 02/10/19 03:05 02/10/19 03:05 02/10/19 03:05 02/10/19 03:05 02/10/19 03:05 General appearance: Present: cooperative, mild distress, A&O X 3, answers questions appropriately Exam: - - Head Head exam: Present: normal inspection - Eye Eye exam: Present: EOMI, normal appearance - Respiratory Respiratory exam: Present: CTAB. Absent: rales, respiratory distress, rhonchi, wheezes - Cardiovascular Cardiovascular exam: Present: RRR. Absent: diastolic murmur, systolic murmur - GI/Abdominal GI/Abdominal exam: Present: normal bowel sounds, soft. Absent: tenderness - Extremities Exam Extremities exam: Present: warm, radial pulses palpable and symmetrical. Absent: calf tenderness, pedal edema, tenderness - Neurological Exam Neurological exam: Present: no focal deficits. Absent: motor sensory deficit, strengths equal and symetr throughout, facial droop, speech deficit Additional comments: Chronic right-sided weakness compared to the left - Skin Skin exam: Present: dry, normal color, warm Internal Med - H&P Results - Labs CBC & Chem 7: 02/09/19 16:15 02/09/19 16:15 Labs: Short CBC 02/09/19 Range/Units 16:15 WBC 6.5 (4.3-11.1) K/mcL Hgb 13.2 (11.5-15.4) g/dL Hct 38.6 (35.3-44.9) % Plt Count 246 (140-400) K/mcL Neutrophils # 4.5 (1.6-8.9) K/mcL BMP 02/09/19 16:15 Sodium 136 Potassium 3.1 L Chloride 100 Carbon Dioxide 24 BUN 12 Creatinine 0.67 Glucose 387 H Calcium 9.6 Cardiac Enzymes 02/09/19 02/09/19 Range/Units 16:15 23:28 Troponin I < 0.03 < 0.03 (< 0.04) ng/mL - Impressions ITS Impressions Chest X-Ray 02/09/19 15:53 IMPRESSION: No acute cardiopulmonary process. D/ / 02/09/2019 16:19:58 Yasir Murray MD / laura Interpreting Provider: Yasir Murray MD Chest CTA 02/09/19 17:18 IMPRESSION: No evidence of pulmonary embolism or acute pulmonary abnormality. 3 mm right upper lobe pulmonary nodule. RECOMMENDATIONS: If patient is low risk for malignancy, no routine follow-up imaging is recommended; if patient is high risk for malignancy, a non-contrast Chest CT at 12 months is optional. If performed and the nodule is stable at 12 months, no further follow-up is recommended. *These guidelines do not apply to patients younger than 35 years, immunocompromised patients, and patients with cancer. Follow up in patients with significant comorbidities as clinically warranted. For lung cancer screening, adhere to Lung-RADS guidelines. Reference: Radiology. 2017 Jan; 284(1):228-243. D/ / 02/09/2019 20:10:31 Ron Jacome / tony Interpreting Provider: Ron Jacome Head CT 02/09/19 17:18 IMPRESSION: No acute intracranial abnormality. D/ / Ron Jacome / Ron Jacome Interpreting Provider: Ron Jacome - Assessment and Plan (1) Chest pain Current Visit: Yes Status: Acute Assessment and plan: Now improved, patient says that her chest pain is worse when she is in atrial fibrillation. CT and chest x-ray negative for acute abnormalities. Initial troponins negative. Patient does not have ischemic changes on EKG, initially due to her diffuse ST depressions, pericarditis was centered. Patient does not have a friction rub and presentation not necessarily consistent with per icarditis. She has had extensive workup in the past, recent echo from one month ago: Impressions: Limited Echo LVEF 60%. Normal LV chamber size, wall thickness and function. Normal right ventricular structure and function. No evidence of PFO with agitated saline contrast. Cardiac stress test: Impression: Perfusion imaging was negative for ischemia or infarct. Pharmacologic stress ECG is negative for ischemia at level of heart rate achieved. Patient had chest tightness during pharmacologic stress. Gated EF = 63%. Recommend clinical correlation. Continue cardiac telemetry Continue to trend troponin Cardiology consult in the morning Qualifiers: Qualified Code(s): R07.9 - Chest pain, unspecified (2) Bradycardia Current Visit: Yes Status: Acute Assessment and plan: Observed in the emergency department to have a rate down to the 40s, has co ntinued up on the medical floor as well. Patient is on beta jose armando. Discussed the bradycardia with montessori teacher cardiology. Recommend to not discontinue the sotalol but to continue it. Cardiology consult in the morning Continue cardiac telemetry (3) Atrial fibrillation Current Visit: No Status: Acute Assessment and plan: Patient has history of paroxysmal atrial fibrillation. She takes sotalol, pradaxa. Follows with cardiology in [place]. Currently wearing a Holter monitor due to weakness and palpitations. Continue cardiac telemetry Continue to trend troponin Cardiology consult in the morning Continue home meds Qualifiers: Atrial fibrillation type: paroxysmal Qualified Code(s): I48.0 - Paroxysmal atrial fibrillation (4) Hypokalemia Current Visit: No Status: Acute Assessment and plan: Patient received 40 mEq in the emergency department. Magnesium within normal limits at 1.6. Repeat labs in the morning Replete as needed (5) Diabetes mellitus Current Visit: No Status: Chronic Assessment and plan: Patient is an insulin dependent diabetic Monitor sugars every 6 hours Nothing by mouth Low dose insulin sliding scale as needed Hold home meds. Qualifiers: Diabetes mellitus type: type 2 Diabetes mellitus termite treater insulin use: with custodial use Diabetes mellitus complication status: with hyperglycemia Qualified Code(s): E11.65 - Type 2 diabetes mellitus with hyperglycemia; Z79.4 - long term (current) use of insulin; Z79.4 - long term (current) use of insulin; Z79.4 - longterm (current) use of insulin; Z79.4 - long term (current) use of insulin (6) DVT prophylaxis Current Visit: No Status: Acute Assessment and plan: Continue home Pradaxa - Time Spent With Patient Total time spent is greater than 50% in coordination of care (as documented) at patient's floor/unit and/or counseling patient: Greater than 35 minutes
[2019-02-10] MEDS ORDERED: Acetaminophen IV 500 MG/50 ML INFUS..BTL IVPB ONE (05:26)
[2019-02-10 05:49] LABS: Hematocrit 37.8 % (35.3-44.9); Hemoglobin 12.6 g/dL (11.5-15.4); Mean Corpuscular HGB Conc 33.3 g/dL (31.6-35.5); Mean Corpuscular Hemoglobin 27.5 pg (28.0-33.3); Mean Corpuscular Volume 82.4 fL (83.0-100.0); Mean Platelet Volume 10.5 fL (9.4-12.4); Platelet Count 229 K/mcL (140-400); Red Blood Count 4.59 M/mcL (3.82-4.97); Red Cell Distribution Width 13.1 % (11.5-14.5); White Blood Count 4.9 K/mcL (4.3-11.1)
[2019-02-10] MEDS: Insulin LISPRO 300 UNITS/3 ML VIAL SQ SCH ×4 (06:04→20:58)
[2019-02-10 06:11] LABS: BUN/Creatinine Ratio 25 (6-26); Blood Urea Nitrogen 11 mg/dL (6-20); Calcium 9.4 mg/dL (8.6-10.3); Carbon Dioxide 24 mEq/L (23-29); Chloride 102 mEq/L (98-107); Glucose 295 mg/dL (70-105); Osmolality,Calculated 296 (280-300); Potassium 3.6 mEq/L (3.5-5.1); Sodium 138 mEq/L (136-145); eGFR For African Americans > 60 (> 60); eGFR For Non-African Americans > 60 (> 60)
[2019-02-10] MEDS: Aspirin Enteric Coated 81 MG Tablet PO SCH (08:27)
[2019-02-10] MEDS: FLUoxetine 20 MG CAPSULE PO SCH (08:27)
[2019-02-10] MEDS ORDERED: *HR* Dabigatran 150 MG CAPSULE PO SCH (09:00)
--- NOTE | 2019-02-10 09:06 | Cardiology Consult Note ---
<OdilonAgueda - Last Filed: 02/10/19 11:24> Date of Encounter: 02/10/19 - Attending Attestation I examined this patient and my medical decision-making was reviewed with the Resident Physician. I agree with the documented findings, disposition and treatment plan as described. Ms. Jacome presents with atypical chest pain and palpitations. Multiple admissions in 2019 with similar symptoms. Serial troponins negative. No ischemic ECG findings. Stress test 10/2018 negative for ischemia. [facility] 2011 normal coronaries. Given multiple admissions for similar symptoms, a [facility] was discussed. However, patient did not express interest in pursuing this approach. In regards to atrial fibrillation, patient feels she knows when she is in AFIB. At time of exam, patient felt she was in AFIB but rhythm was regular. She has an event monitor in place (unclear if LOOP recorder was removed?) by her primary Mental Hygienist at [place]. Inpatient telemetry demonstrates occasional paroxysms of AFIB. Unable to tolerate 120mg BID of sotalol now on 80mg BID. Failed flecainide. Will curbside EP. Consider outpatient evaluation. Assessment and Plan Discussion w patient/family: The assessment and plan as outlined above was discussed with the patient and/or family members who expressed understanding and agreement. All questions were answered. Thank you for involving us in the care of your patient. Please call with any questions. History of Present Illness History of present illness: Ms. Jacome is a 53 year old female Medications and Allergies Omeprazole [PriLOSEC] 40 mg PO DAILY 05/12/17 [History] Lisinopril [Zestril] 5 mg PO DAILY tablet 06/20/17 [Rx] Albuterol Sulfate [Ventolin Hfa] 2 puff IH Q4H PRN 07/09/17 [History] Acetaminophen [Tylenol] 500 mg PO Q6HR PRN #20 tablet 09/09/17 [Rx] Insulin Glargine,Hum.rec.anlog [Basaglar Kwikpen U-100] 50 units SQ BID 11/18/17 [History] Aspirin [Lo-Dose Aspirin EC] 81 mg PO DAILY 10/17/18 [History] Gabapentin [Neurontin] 300 mg PO HS 12/23/18 [History] Metformin HCl [Glucophage] 1,000 mg PO BID 12/23/18 [History] clonazePAM [Clonazepam] 0.5 mg PO HS PRN 12/23/18 [History] Atorvastatin [Lipitor] 40 mg PO HS #30 tablet 12/28/18 [Rx] FLUoxetine HCl [Prozac] 60 mg PO DAILY #120 capsule 12/28/18 [Rx] Dabigatran [Pradaxa] 150 mg PO BID #60 capsule 01/06/19 [Rx] hydrOXYzine pamoate [Vistaril] 25 mg PO TID 4 Days #12 capsule 02/03/19 [Rx] Sotalol [Betapace] 80 mg PO Q12H 02/09/19 [History] Allergy/AdvReac Type Severity Reaction Status Date / Time No Known Allergies Allergy Verified 01/04/19 16:05 All Systems Review: The remainder of the systems were reviewed and are negative Results 02/10/19 05:27 02/10/19 05:27 Lab Results 02/09/19 02/09/19 02/09/19 16:15 16:15 16:15 WBC 6.5 Hgb 13.2 Hct 38.6 Plt Count 246 INR 1.0 APTT 31.9 Sodium 136 Potassium 3.1 L Chloride 100 Carbon Dioxide 24 BUN 12 Creatinine 0.67 Glucose 387 H Calcium 9.6 Magnesium 1.6 Troponin I < 0.03 02/09/19 02/10/19 02/10/19 23:28 05:27 05:27 WBC 4.9 Hgb 12.6 Hct 37.8 Plt Count 229 INR APTT Sodium 138 Potassium 3.6 Chloride 102 Carbon Dioxide 24 BUN 11 Creatinine 0.44 L Glucose 295 H Calcium 9.4 Magnesium Troponin I < 0.03 02/10/19 05:27 WBC Hgb Hct Plt Count INR APTT Sodium Potassium Chloride Carbon Dioxide BUN Creatinine Glucose Calcium Magnesium Troponin I < 0.03 Consult Discharge Plan - Plan Referrals: Joanne Paez MD [Primary Care Provider] - <Yasir Lane - Last Filed: 02/10/19 11:47> Date of Encounter: 02/10/19 Time of Encounter: 09:06 Assessment and Plan (1) Atrial fibrillation Current Visit: No Status: Acute Patient with pmh significant for transient atrial fibrillation Ablation therapy. Patient presents with palpitations and chest pain intermittently for one day described as pressure and radiating to her back. Patient states pain is correlated with episodes of atrial fibrillation. Patient has hydropulper in [place] who placed patient on a Holter monitor 5 days prior to arrival which she is currently wearing. Chest x-ray, CTA, and troponins 3 all negative since admission EKG in ED shows atrial fibrillation with rate of 96 At home patient on Pradaxa 150 mg twice a day, aspirin 81 mg, and sotalol 80 mg twice a day as well as lisinopril 5 mg and atorvastatin 40 mg. Patient had nuclear med nonexercise stress test on 11/09 which was normal, echo 12/25 EF of 60%, -Patient currently in normal sinus rhythm with well-controlled heart rate and blood pressure, we will continue home medications. -Patient was seen by EP on 12/25 when flecainide was stopped due to possible NSVT while on medication. This is when sotalol 80 mg twice a day was started. -Discussed with patient potential for cardiac catheterization due to recurrent admissions for similar episodes of chest pain. Patient continues to reiterate that heaviness is associated directly with the ending of episodes of atrial fibrillation. All other testing has been negative for acute cardiac issues and will hold off on cardiac catheterization at this time. Qualifiers: Atrial fibrillation type: paroxysmal Qualified Code(s): I48.0 - Paroxysmal atrial fibrillation (2) Chest pain Current Visit: No Status: Acute Qualifiers: Chest pain type: unspecified Qualified Code(s): R07.9 - Chest pain, unspecified Discussion w patient/family: The assessment and plan as outlined above was discussed with the patient and/or family members who expressed understanding and agreement. All questions were answered. Thank you for involving us in the care of your patient. Please call with any questions. History of Present Illness Consult date: 02/10/19 Chief complaint: Palpitations History of present illness: Ms. Jacome is a 53 year old female with significant PMH of atrial fibrillation post ablation, hypertension, [place], COPD, diabetes, and hyperlipidemia presents with chest pain and palpitations started early in the morning on 02/09. Patient states she is has been going in and out of atrial fibrillation since her ablation which was 5 years ago. Patient describes the chest pain as pressure which radiates to her back and usually occurs following an episode of atrial fibrillation. Patient is followed by a hydropulper in [place] who placed patient on a Holter monitor she has been wearing for the last 5 days. Prior to arrival to the ED patient took 2 nitroglycerin tablets and an aspirin without relief of her pain. Patient was seen by cardiology in the hospital on 01/06 and sotalol dose was increased to 120 mg twice a day. He should have been seen by family doctor and dose was decreased back to 80 mg twice a day due to patient having low heart rates and feeling weak. Since presenting to the ED patient has had 3 troponins, chest x-ray, and a CTA that were negative. EKG in ED was atrial fibrillation with a rate of 96. Patient has since returned to normal sinus rhythm and continues to be so on telemetry. Patient's blood pressures have been stable. Past Med Surg Social Fam HX - Past Medical History Medical history: atrial fibrillation, COPD, CVA, diabetes, hyperlipidemia, hypertension, myocardial infarction, TIA, other Additional medical history: c-diff, cervialgia, Loop recorder, cervico-occipital neurolgia-cerebral hemorrhage,. anemia, spasmadic torticollis. ANTOINETTE. respiratory failure. dydfunctional uterine bleed, obesity, conversion disorder, left sided weakness from previous CVA Psychiatric history: depression - Past Surgical History Surgical History: cholecystectomy Additional surgical history: loop recorder and cardiac ablasion - Social History Smoking Status: Never smoker Smokeless Tobacco Status: No Alcohol use: occasionally Drug use: none - Family History Mother Living Status: Hx Family Cardiac Disorders: Yes Hx Family Respiratory Disorders: Yes (copd) Hx Family Cancer: Yes (lung cancer) Hx Family Endocrine Disorder: Yes (DM type II) Father Adopted: No Family Member Ethnicity: Non- Living Status: Hx Family Cardiac Disorders: Yes Hx Family Respiratory Disorders: Yes Hx Family Cancer: Yes (LUNG) Hx Family GI Disorders: No Hx Family Endocrine Disorder: Yes Hx Family Neuromuscular Disorders: No Hx Family Neurologic Disorders: No Hx Family HEENT Disorders: No Hx Family Autoimmune Disorders: No All Systems Review: The remainder of the systems were reviewed and are negative - Constitutional Constitutional: no anorexia, no fever(s), no headache(s), no weakness, no weight loss - EENT Eyes: no blurred vision, no loss of vision - Cardiovascular Cardiovascular: chest pain at rest, chest pain with exertion, dyspnea on exertion, irregular heart rhythm, no diaphoresis, no dyspnea at rest, no leg edema, no lightheadedness, no orthopnea, no syncope - Respiratory Respiratory: no cough, no dyspnea - Gastrointestinal Gastrointestinal: no abdominal pain, no diarrhea, no nausea - Musculoskeletal Musculoskeletal: back pain, no abnormal gait, no muscle weakness - Integumentary Integumentary: no erythema, no rash - Neurological Neurological: no abnormal speech, no dizziness, no focal weakness, no loss of vision, no numbness - Psychiatric Psychiatric: no anxiety, no depression - Hematological/Lymphatic Hematologic/Lymphatic: no easy bleeding, no easy bruising Physical Examination Vital Signs, Last 4 Hours Temp Pulse Resp BP Pulse Ox 02/10/19 07:07 97.5 F L 50 14 124/57 100 General: Conversant, No Apparent Distress HEENT: Atraumatic, Normocephaly, Mucus Membranes Moist Neck: No JVD, Normal carotid pulses Cardiac: Reg Rate and Rhythm, Normal S1 and S2, No Murmur Lungs: Normal Breath Sounds, No Wheeze, Rales, Rhonchi Neuro: Alert and responsive, No focal deficits noted Abdomen: Soft, Non-Tender Skin: No rashes noted on visualized skin Musculoskeletal: No Chest Wall Tenderness Extremities: No Clubbing, No Cyanosis, No Edema, Normal Pulses Results 02/10/19 05:27 02/10/19 05:27 Lab Results 02/09/19 02/09/19 02/09/19 16:15 16:15 16:15 WBC 6.5 Hgb 13.2 Hct 38.6 Plt Count 246 INR 1.0 APTT 31.9 Sodium 136 Potassium 3.1 L Chloride 100 Carbon Dioxide 24 BUN 12 Creatinine 0.67 Glucose 387 H Calcium 9.6 Magnesium 1.6 Troponin I < 0.03 02/09/19 02/10/19 02/10/19 23:28 05:27 05:27 WBC 4.9 Hgb 12.6 Hct 37.8 Plt Count 229 INR APTT Sodium 138 Potassium 3.6 Chloride 102 Carbon Dioxide 24 BUN 11 Creatinine 0.44 L Glucose 295 H Calcium 9.4 Magnesium Troponin I < 0.03 02/10/19 05:27 WBC Hgb Hct Plt Count INR APTT Sodium Potassium Chloride Carbon Dioxide BUN Creatinine Glucose Calcium Magnesium Troponin I < 0.03
[2019-02-10] MEDS ORDERED: Acetaminophen 325 MG TABLET PO PRN (10:56)
--- NOTE | 2019-02-10 15:28 | Internal Med Progress Note ---
Hospitalist Progress Note - Encounter Date of Encounter: 02/10/19 Time of Encounter: 15:28 - Subjective Interval History: Ms. Jacome is a 53 year old female with known PMH of atrial fibrillation, COPD, CVA, diabetes, hyperlipidemia, hypertension, myocardial infarction, and TIA who has multiple hospitalizations here for chest pain now she presented to ER with sub sternal CP, radiating to her back. Pt stated her pain is more worse with exertion. She also feeling lightheadedness when she gets CP. Her serial troponin were negative. Her EKG did not show any acute ischemic changes. - Exam Vitals: Temp Pulse Resp BP Pulse Ox 97.4 F L 53 16 135/61 99 02/10/19 11:45 02/10/19 11:45 02/10/19 11:45 02/10/19 11:45 02/10/19 11:45 Exam: Gen: Alert, awake, Oriented to time,place and person Chest: Diminished breath sounds B/L, No wheezing, No crackles, No rales Heart: S1S2+ RRR No murmurs Abd: Soft, NT, BS +, No organomegaly Ext: No edema, pulses are palpable, No calf tenderness Neuro : No acute focal neuro deficits noticed Skin: No rash. - Assessment and Plan (1) Chest pain Current Visit: Yes Status: Acute Assessment and Plan: So far negative troponin x 3 No acute ischemic changes on EKG Had normal stress test in October 2018 Had normal coronaries in 2011 [facility] Since pt is keep coming back to ER with recurrent CP , and currently she still has CP with exertion , she may get benefit with [facility] will talk to cardiology Will keep the pt NPO after mid night Will hold her Pradaxa for now (2) Atrial fibrillation Current Visit: No Status: Acute Assessment and Plan: Patient has history of paroxysmal atrial fibrillation rate controlled with Sotalol 80 mg BID Held pradaxa now since she may go for [facility] in AM (3) Diabetes mellitus Current Visit: No Status: Chronic Assessment and Plan: ADA diet Fairly controlled Changed ISS to High garde and started her on Levemir 30 U BID (4) Hypokalemia Current Visit: No Status: Acute Assessment and Plan: resolved (5) Bradycardia Current Visit: Yes Status: Acute Assessment and Plan: Stable now Currently on Sotalol 80 mg BID cont on tele (6) DVT prophylaxis Current Visit: No Status: Acute Assessment and Plan: on Pradaxa - Time Spent with Patient Total time spent is greater than 50% in coordination of care (as documented) at patient's floor/unit and/or counseling patient: Internal Medicine: Result - Labs CBC & Chem 7: 02/10/19 05:27 02/10/19 05:27 Labs: Short CBC 02/09/19 02/10/19 Range/Units 16:15 05:27 WBC 6.5 4.9 (4.3-11.1) K/mcL Hgb 13.2 12.6 (11.5-15.4) g/dL Hct 38.6 37.8 (35.3-44.9) % Plt Count 246 229 (140-400) K/mcL Neutrophils # 4.5 (1.6-8.9) K/mcL BMP 02/09/19 02/10/19 16:15 05:27 Sodium 136 138 Potassium 3.1 L 3.6 Chloride 100 102 Carbon Dioxide 24 24 BUN 12 11 Creatinine 0.67 0.44 L Glucose 387 H 295 H Calcium 9.6 9.4 Cardiac Enzymes 02/09/19 02/09/19 02/10/19 Range/Units 16:15 23:28 05:27 Troponin I < 0.03 < 0.03 < 0.03 (< 0.04) ng/mL - ABG Interpretation ABG results: PT/INR, D-dimer PT 11.8 Seconds (9.4-12.1) 02/09/19 16:15 - Impressions Impressions Chest X-Ray 02/09/19 15:53 IMPRESSION: No acute cardiopulmonary process. D/ / 02/09/2019 16:19:58 Yasir Murray MD / laura Interpreting Provider: Yasir Murray MD Chest CTA 02/09/19 17:18 IMPRESSION: No evidence of pulmonary embolism or acute pulmonary abnormality. 3 mm right upper lobe pulmonary nodule. RECOMMENDATIONS: If patient is low risk for malignancy, no routine follow-up imaging is recommended; if patient is high risk for malignancy, a non-contrast Chest CT at 12 months is optional. If performed and the nodule is stable at 12 months, no further follow-up is recommended. *These guidelines do not apply to patients younger than 35 years, immunocompromised patients, and patients with cancer. Follow up in patients with significant comorbidities as clinically warranted. For lung cancer screening, adhere to Lung-RADS guidelines. Reference: Radiology. 2017 Jan; 284(1):228-243. D/ / 02/09/2019 20:10:31 Ron Jacome / tony Interpreting Provider: Ron Jacome Head CT 02/09/19 17:18 IMPRESSION: No acute intracranial abnormality. D/ / Ron Jacome / Ron Jacome Interpreting Provider: Ron Jacome Consult Discharge Plan - Plan Referrals: Joanne Paez MD [Primary Care Provider] - (1) Chest pain Qualifiers: Qualified Code(s): R07.9 - Chest pain, unspecified (2) Atrial fibrillation Qualifiers: Atrial fibrillation type: paroxysmal Qualified Code(s): I48.0 - Paroxysmal atrial fibrillation (3) Diabetes mellitus Qualifiers: Diabetes mellitus type: type 2 Diabetes mellitus audio/video engineer insulin use: with fdc use Diabetes mellitus complication status: with hyperglycemia Qualified Code(s): E11.65 - Type 2 diabetes mellitus with hyperglycemia; Z79.4 - long term (current) use of insulin; Z79.4 - long term (current) use of insulin; Z79.4 - long term (current) use of insulin; Z79.4 - long term (current) use of insulin
--- NOTE | 2019-02-10 16:05 | Electrocardiograph Report ---
[address] [address] Test Date: 2019-02-10 Pat Name: Christie Jacome Department: 113 Room: 3B Gender: F Foundry Tender: : 1965 Requested By: Billy Burden Order Number: [id number] Reading MD: Margoth Brooks Measurements Intervals [place] Rate: 52 P: 64 MO: 134 QRS: 25 QRSD: 102 T: 4 QT: 443 QTc: 424 Interpretive Statements SINUS BRADYCARDIA Nonspecific ST changes Electronically Signed On 02-10-2019 16:04:12 EDT by Margoth Brooks
--- NOTE | 2019-02-10 16:18 | Electrocardiograph Report ---
[address] [address] Test Date: 2019-02-10 Pat Name: Christie Jacome Department: 113 Room: 3B Gender: F Food Service Team Member: : 1965 Requested By: Gerardo White Order Number: [id number] Reading MD: Margoth Brooks Measurements Intervals [place] Rate: 93 P: [place]: 0 QRS: 30 QRSD: 98 T: 3 QT: 370 QTc: 421 Interpretive Statements ATRIAL FIBRILLATION MODERATE ST DEPRESSION [0.05+ mV ST DEPRESSION] Electronically Signed On 02-10-2019 16:17:24 EDT by Margoth Brooks
--- NOTE | 2019-02-10 16:25 | Electrocardiograph Report ---
[address] [address] Test Date: 2019-02-09 Pat Name: Christie Jacome Department: [id number] Room: 3B Gender: F Keyboard Instrument Tuner: : 1965 Requested By: [id number] Order Number: [id number] Reading MD: Marco Antonio Brooks Measurements Intervals [place] Rate: 65 P: 53 NC: 124 QRS: 56 QRSD: 98 T: 58 QT: 458 QTc: 477 Interpretive Statements Sinus rhythm [address] depression, diffuse leads Electronically Signed On 02-10-2019 16:24:08 EDT by Marco Antonio Brooks
[2019-02-10] MEDS ORDERED: Insulin LISPRO 300 UNITS/3 ML VIAL SQ SCH (16:30)
--- NOTE | 2019-02-10 16:31 | Electrocardiograph Report ---
[address] [address] Test Date: 2019-02-09 Pat Name: Christie Jacome Department: [id number] Room: 3B Gender: F Bookkeeping Clerks Supervisor: : 1965 Requested By: Rafal Castro Order Number: [id number] Reading MD: Margoth Brooks Measurements Intervals [place] Rate: 54 P: 61 SD: 135 QRS: 61 QRSD: 103 T: 58 QT: 480 QTc: 455 Interpretive Statements Sinus rhythm ST depression, diffuse leads Electronically Signed On 02-10-2019 16:29:47 EDT by Margoth Brooks
--- NOTE | 2019-02-10 16:48 | Event Note ---
Date of Encounter: 02/10/19 Time of Encounter: 16:46 - Cardiology Event Note Discussed case with Hospitalist who told me patient decided she wanted to proceed with LHC. Will plan on LHC in AM. Renal function normal. Otherwise, brief discussion with EP regarding this patient. Recommend outpatient follow up with her primary Avionics Systems Repairer for management.
[2019-02-10] MEDS: *HR* OxyCODONE/APAP 5/325 TABLET PO PRN ×2 (17:14→23:37)
[2019-02-10] MEDS: Insulin DETEMIR 100 UNIT/ML X5UNITS SQ SCH (20:59)
[2019-02-10] MEDS ORDERED: Gabapentin 300 MG CAPSULE PO SCH (21:00)
[2019-02-11 02:19] LABS: Hematocrit 37.6 % (35.3-44.9); Hemoglobin 12.4 g/dL (11.5-15.4); Mean Corpuscular Hemoglobin 27.6 pg (28.0-33.3); Mean Corpuscular Volume 83.6 fL (83.0-100.0); Mean Platelet Volume 10.7 fL (9.4-12.4); Platelet Count 262 K/mcL (140-400)
[2019-02-11 02:39] LABS: BUN/Creatinine Ratio 29 (6-26); Blood Urea Nitrogen 12 mg/dL (6-20); Calcium 9.2 mg/dL (8.6-10.3); Carbon Dioxide 25 mEq/L (23-29); Chloride 103 mEq/L (98-107); Glucose 255 mg/dL (70-105); Osmolality,Calculated 294 (280-300); Potassium 3.4 mEq/L (3.5-5.1); Sodium 138 mEq/L (136-145); eGFR For African Americans > 60 (> 60); eGFR For Non-African Americans > 60 (> 60)
[2019-02-11 07:31] VITALS: BP 119/62
--- NOTE | 2019-02-11 08:36 | Event Note ---
Date of Encounter: 02/11/19 Time of Encounter: 08:00 - Cardiology Event Note Patient presented with atypical chest pain symptoms, SUREKHA negative. Recent negative stress test in 10/2018. Paged by primary service yesterday evening, patient now wants to proceed with LHC to r/o ischemic etiology of symptoms. A/R/B of LHC discussed with patient, she is agreeable to proceed. DNRCC-DNI, patient will need to be FULL CODE during LHC and 24 hours post procedure, patient is agreeable. Order placed for FULL code, will defer to primary team to change back to DNRCC- DNI 24 hours post procedure (if remains inpt). Further recommendations to follow. Patient was discussed and reviewed with Dr. Donald who agrees with plan as stated above.
[2019-02-11] MEDS: Aspirin Enteric Coated 81 MG Tablet PO SCH (08:38)
[2019-02-11] MEDS: Insulin DETEMIR 100 UNIT/ML X5UNITS SQ SCH (08:38)
[2019-02-11] MEDS: FLUoxetine 20 MG CAPSULE PO SCH (08:38)
[2019-02-11] MEDS: Insulin LISPRO 300 UNITS/3 ML VIAL SQ SCH (08:39)
--- NOTE | 2019-02-11 11:15 | Discharge Summary ---
- NOTES TO OUTPATIENT PROVIDER Notes to Outpatient Provider: f/u with PCP in one week. f/u with Cardiology ( from [facility] ) in 1-2 weeks. Date of Encounter: 02/11/19 Time of Encounter: 11:11 - Discharge Diagnosis (1) Chest pain Priority: Primary Status: Acute Qualifiers: Qualified Code(s): R07.9 - Chest pain, unspecified (2) Atrial fibrillation Priority: Secondary Status: Acute Qualifiers: Atrial fibrillation type: paroxysmal Qualified Code(s): I48.0 - Paroxysmal atrial fibrillation (3) Diabetes mellitus Priority: Secondary Status: Chronic Qualifiers: Diabetes mellitus type: type 2 Diabetes mellitus half-way insulin use: with emt intermediate use Diabetes mellitus complication status: with hyperglycemia Qualified Code(s): E11.65 - Type 2 diabetes mellitus with hyperglycemia; Z79.4 - 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 Jacome is a 53 year old female with known PMH of atrial fibrillation, COPD, CVA, diabetes, hyperlipidemia, hypertension, myocardial infarction, and TIA who has multiple hospitalizations here for chest pain now she presented to ER with sub sternal CP, radiating to her back. Pt stated her pain is more worse with exertion. She also feeling lightheadedness when she gets CP. Her serial troponin were negative. Her EKG did not show any acute ischemic changes. Pt was evaluated by firearms inspector and scheduled for LHC today, however suddenly now pt wanted to leave AMA. Pt stated she has some urgent things to take care of at home and wanted to leave the hospital now. She asked for narcotic pain medication to go home for her back pain. I explained to her about how important this LHC for her since he she got admitted here 3 times in last one month for CP. However pt still refused to stay and wanted to f.u with her regular firearms inspector from [facility]. - Time Spent with Patient Total time spent providing and/or coordinating discharge services: - Discharge Medications Prescriptions: Continued Omeprazole [PriLOSEC] 40 mg PO DAILY Lisinopril [Zestril] 5 mg PO DAILY tablet Albuterol Sulfate [Ventolin Hfa] 2 puff IH Q4H PRN PRN Reason: Shortness Of Breath Acetaminophen [Tylenol] 500 mg PO Q6HR PRN #20 tablet PRN Reason: Pain Insulin Glargine,Hum.rec.anlog [Basaglar Kwikpen U-100] 50 units SQ BID Aspirin [Lo-Dose Aspirin EC] 81 mg PO DAILY clonazePAM [Clonazepam] 0.5 mg PO HS PRN PRN Reason: Anxiety Gabapentin [Neurontin] 300 mg PO HS Metformin HCl [Glucophage] 1,000 mg PO BID Atorvastatin [Lipitor] 40 mg PO HS #30 tablet FLUoxetine HCl [Prozac] 60 mg PO DAILY #120 capsule Dabigatran [Pradaxa] 150 mg PO BID #60 capsule hydrOXYzine pamoate [Vistaril] 25 mg PO TID 4 Days #12 capsule Sotalol [Betapace] 80 mg PO Q12H Home Medications: Omeprazole [PriLOSEC] 40 mg PO DAILY 05/12/17 [History] Lisinopril [Zestril] 5 mg PO DAILY tablet 06/20/17 [Rx] Albuterol Sulfate [Ventolin Hfa] 2 puff IH Q4H PRN 07/09/17 [History] Acetaminophen [Tylenol] 500 mg PO Q6HR PRN #20 tablet 09/09/17 [Rx] Insulin Glargine,Hum.rec.anlog [Basaglar Kwikpen U-100] 50 units SQ BID 11/18/17 [History] Aspirin [Lo-Dose Aspirin EC] 81 mg PO DAILY 10/17/18 [History] Gabapentin [Neurontin] 300 mg PO HS 12/23/18 [History] Metformin HCl [Glucophage] 1,000 mg PO BID 12/23/18 [History] clonazePAM [Clonazepam] 0.5 mg PO HS PRN 12/23/18 [History] Atorvastatin [Lipitor] 40 mg PO HS #30 tablet 12/28/18 [Rx] FLUoxetine HCl [Prozac] 60 mg PO DAILY #120 capsule 12/28/18 [Rx] Dabigatran [Pradaxa] 150 mg PO BID #60 capsule 01/06/19 [Rx] hydrOXYzine pamoate [Vistaril] 25 mg PO TID 4 Days #12 capsule 02/03/19 [Rx] Sotalol [Betapace] 80 mg PO Q12H 02/09/19 [History] Allergies/Adverse Reactions: Allergy/AdvReac Type Severity Reaction Status Date / Time No Known Allergies Allergy Verified 01/04/19 16:05 Date of admission: 02/09/19 21:32 Primary care physician: Joanne Paez Consults: 02/10/19 04:50 Consult to Cardiology [CONS] Routine Comment: Consulting Provider: Cardiology Peggy Reason for Consult: Arrhythmia, bradycardia. Patient on sotalol Call Completed: Yes - Constitutional Vitals: Temp Pulse Resp BP Pulse Ox 97.6 F 60 16 119/62 97 02/11/19 07:30 02/11/19 07:30 02/11/19 07:30 02/11/19 07:30 02/11/19 07:30 General appearance: Present: cooperative, A&O X 3, answers questions appropriately Exam: a - Head Head exam: Present: atraumatic - Neurological Exam Neurological exam: Present: alert, oriented X3. Absent: speech deficit - Psychiatric Psychiatric exam: Present: anxious - Patient Status Disposition: Left Against Medical Advice Condition: Fair - Discharge Instructions Follow Up With: Joanne Paez MD [Primary Care Provider] - - Diet and Activity Activity: increase activity as tolerated Diet: low salt diet
== END 2019-02-11 11:31 | disposition left against medical advice (07) ==
LOC: EMEROOARM 15:41 → 3BNU 15:41 → SUATTDRO 21:32 → 3BNU 22:41
PROVIDERS: ADMIT Family Medicine; ATTEND Family Medicine

== ENCOUNTER 2019-02-24 15:43 | Observation (INO) ==
--- NOTE | 2019-02-24 15:58 | Emergency Department Note ---
Disposition Clinical Impression: Hyperglycemia Chest pain Qualifiers: Chest pain type: unspecified Qualified Code(s): R07.9 - Chest pain, unspecified Disposition: Admitted As Inpatient Condition: Good Time of Disposition: 00:50 General Adult HPI - General Chief complaint: ED Chest Pain Stated complaint: CP Time Seen by Provider: 02/24/19 15:48 Nursing Notes Reviewed: Yes Vital Signs Reviewed: Yes - History of Present Illness HPI Narrative: 53-year-old female with history of atrial fibrillation, COPD, CVA, diabetes, HLD, HT, CAD, and TIA who presents to the ED with plans of chest pain which radiates into her upper back. The patient states this is similar to every other episode of atrial fibrillation that she has had. She states she has had previous ablation and recently was admitted for similar symptoms at which time they recommended a left heart catheter but she had to leave A secondary to family issues. Since today proximally 30 minutes prior to arrival she developed chest pain in the midsternum, radiating into her back, feels sharp and steady. She denies any significant shortness of breath associated with this, does admit to some nausea but denies any diaphoresis, vomiting, abdominal pain. She notes that she also has tingling of her tongue which she has never experienced before. She denies tingling, numbness, headache, weakness elsewhere. - Related Data Home Medications Medication Instructions Recorded Confirmed Omeprazole [PriLOSEC] 40 mg PO DAILY 05/12/17 02/24/19 Albuterol Sulfate [Ventolin Hfa] 2 puff IH Q4H PRN 07/09/17 02/24/19 Insulin Glargine,Hum.rec.anlog 50 units SQ BID 11/18/17 02/24/19 [Basaglar Kwikpen U-100] Gabapentin [Neurontin] 300 mg PO HS 12/23/18 02/24/19 Metformin HCl [Glucophage] 1,000 mg PO BID 12/23/18 02/24/19 clonazePAM [Clonazepam] 0.5 mg PO HS 12/23/18 02/24/19 Sotalol [Betapace] 120 mg PO Q12H 02/09/19 02/24/19 Acetaminophen [Tylenol] 650 mg PO PRN PRN 02/11/19 02/24/19 Aspirin 324 mg PO QAM 02/11/19 02/24/19 Tizanidine HCl 4 mg PO TID PRN 02/11/19 02/24/19 Previous Rx's Medication Instructions Recorded Lisinopril [Zestril] 5 mg PO DAILY tablet 06/20/17 Atorvastatin [Lipitor] 40 mg PO HS #30 tablet 12/28/18 FLUoxetine HCl [Prozac] 60 mg PO DAILY #120 capsule 12/28/18 Dabigatran [Pradaxa] 150 mg PO BID #60 capsule 01/06/19 hydrOXYzine pamoate [Vistaril] 25 mg PO TID 4 Days #12 capsule 02/03/19 Allergies Allergy/AdvReac Type Severity Reaction Status Date / Time No Known Allergies Allergy Verified 02/11/19 11:15 Review of Systems: ROS per history of present illness, all other systems reviewed and negative or normal. All systems ED: reviewed and negative except as stated. 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 No apparent distress. Follow commands. Appears stated age. Neck: No JVD. Trachea midline. Neck supple. Eyes: PERRL. No scleral icterus. HENT: Normocephalic and atraumatic. Moist mucus membranes. Cardiovascular: Regular rate and rhythm. Normal S1 and S2. No murmurs appreciated. Normal capillary refill. Extremities well perfused with 2+ distal pulses bilaterally. No edema. Pulmonary: Normal and equal breath sounds bilaterally, anteriorly and posteriorly. No wheezes, rales, or rhonchi. Not in respiratory distress. Speaks in full sentences. Abdomen: Soft, nondistended, and tontender. No bruits or masses. No guarding. Neuro: Alert and oriented to person, place, and time. CN II-XII tested and grossly intact. No hemineglect. Speech is fluid and without slurring. Sensory: Sensation intact to light touch in all extremities. Motor: Normal tone and bulk. No pronator drift. 5/5 strength in LUE 5/5 strength in RUE 5/5 strength in LLE 5/5 strength in RLE Coordination: heel to adams testing intact bilaterally. Skin: No rashes noted on visualized skin. Musculoskeletal: No bony abnormalities visualized. Moves all extremities. No chest wall tenderness. Psych: Normal mood. Pleasant. Makes appropriate eye contact. Course Vital Signs Temperature 97.7 F 02/24/19 15:45 Pulse Rate 58 02/24/19 15:45 Respiratory Rate 16 02/24/19 15:45 Blood Pressure 90/54 02/24/19 15:45 O2 Sat by Pulse Oximetry 98 02/24/19 15:45 Temperature 98.0 F 02/24/19 22:30 Pulse Rate 53 02/24/19 22:30 Respiratory Rate 16 02/24/19 22:30 Blood Pressure 142/85 02/24/19 22:30 O2 Sat by Pulse Oximetry 97 02/24/19 22:30 Oxygen Delivery Oxygen Delivery Room Air Medical Decision Making - MDM Narrative Medical decision making narrative: 53-year-old female who presents emergency Department with plans of chest pain. Patient has history of A. fib, CVA, diabetes. She was admitted for emergent of that was evaluated by cardiology earlier last month and she was deemed candidate for left heart catheter at that time but she was unable to stay and left AMA. The patient's symptoms persist. The patient was given aspirin in route by EMS. Vital signs show fluid responsive hypotension and bradycardia. The patient is in normal sinus rhythm. The patient has no acute ST or T-wave abnormality's. Laboratory evaluation shows no evidence of acidosis or anemia. The patient does have evidence of elevated glucose as well as glucose urea therefore obtained beta hydroxybutyrate and VBG. These showed no evidence of DKA. Troponin 1 less than 0.03. No evidence of urinary tract infection. The patient had a head CT given her complaints of mouth tingling which showed no evidence of acute intracranial pathology. Chest x-ray stable. Given the patient's previous history we did contact cardiology and they recommended start the patient on a heparin drip for potential catheterization. They will consult to see the patient. Patient had improvement in her symptoms prior to transfer to floor. Patient agrees with and understands the course of treatment plan including plan for discharge and follow-up. All questions answered. - Medical Records Medical records reviewed: Yes I reviewed the patient's medical records. - Lab Data Lab results reviewed: Yes I reviewed the patient's lab results. Result diagrams: 02/24/19 16:16 02/24/19 16:16 Lab Results 02/24/19 02/24/19 02/24/19 Range/Units 16:16 16:16 16:16 WBC 8.8 (4.3-11.1) K/mcL RBC 4.78 (3.82-4.97) M/mcL Hgb 13.1 (11.5-15.4) g/dL Hct 39.4 (35.3-44.9) % MCV 82.4 L (83.0-100.0) fL MCH 27.4 L (28.0-33.3) pg MCHC 33.2 (31.6-35.5) g/dL RDW 13.0 (11.5-14.5) % Plt Count 272 (140-400) K/mcL MPV 10.8 (9.4-12.4) fL Immature Gran % 0.1 (0-4) % Seg Neutrophils % 67.9 % Lymphocytes % 26.1 % Monocytes % 4.8 % Eosinophils % 0.8 % Basophils % 0.3 % Neutrophils # 6.0 (1.6-8.9) K/mcL Lymphocytes # 2.3 (0.6-4.6) K/mcL Monocytes # 0.4 (0.0-1.3) K/mcL Eosinophils # 0.1 (0.0-0.6) K/mcL Basophils # 0.0 (0.0-0.2) K/mcL PT (9.4-12.1) Seconds INR APTT 29.9 (26.0-36.0) Seconds Heparin Anti-Xa, Unfract (0.30-0.70) IU/mL VBG pH (7.32-7.42) pH Units VBG pCO2 (41-51) mmHg VBG pO2 (25-50) mmHg VBG HCO3 (21-27) mEq/L Sodium 133 L (136-145) mEq/L Potassium 4.1 (3.5-5.1) mEq/L Chloride 103 (98-107) mEq/L Carbon Dioxide 23 (23-29) mEq/L BUN 18 (6-20) mg/dL Creatinine 0.64 (0.60-1.20) mg/dL Est GFR ( Amer) > 60 (> 60) Est GFR (Non-Af Amer) > 60 (> 60) BUN/Creatinine Ratio 28 H (6-26) Glucose 541 H* (70-105) mg/dL Calculated Osmolality 302 H (280-300) Calcium 9.1 (8.6-10.3) mg/dL Magnesium (1.6-2.6) mg/dL Troponin I (< 0.04) ng/mL Beta-Hydroxybutyric Acd (0.02-0.27) mmol/L Urine Color (Yellow) Urine Clarity (Clear) Urine pH (5.0-8.0) pH Units Ur Specific Barnard (1.010-1.025) Urine Protein (Neg-Trace) mg/dL Urine Glucose (UA) (Normal) mg/dL Urine Ketones (Negative) mg/dL Urine Blood (Negative) Urine Nitrite (Negative) Urine Bilirubin (Negative) Urine Urobilinogen (Normal) mg/dL Ur Leukocyte Esterase (Negative) Urine Microscopic RBC (0-3) per hpf Urine Microscopic WBC (0-3) per hpf Ur Squamous Epith Cells (None-Few) per lpf Urine Bacteria (None-Few) per hpf Hyaline Casts (None-Few) per lpf Ur Culture Indicated? (NO) 02/24/19 02/24/19 02/24/19 Range/Units 16:16 16:16 17:21 WBC (4.3-11.1) K/mcL RBC (3.82-4.97) M/mcL Hgb (11.5-15.4) g/dL Hct (35.3-44.9) % MCV (83.0-100.0) fL MCH (28.0-33.3) pg MCHC (31.6-35.5) g/dL RDW (11.5-14.5) % Plt Count (140-400) K/mcL MPV (9.4-12.4) fL Immature Gran % (0-4) % Seg Neutrophils % % Lymphocytes % % Monocytes % % Eosinophils % % Basophils % % Neutrophils # (1.6-8.9) K/mcL Lymphocytes # (0.6-4.6) K/mcL Monocytes # (0.0-1.3) K/mcL Eosinophils # (0.0-0.6) K/mcL Basophils # (0.0-0.2) K/mcL PT 10.8 (9.4-12.1) Seconds INR 1.0 APTT (26.0-36.0) Seconds Heparin Anti-Xa, Unfract (0.30-0.70) IU/mL VBG pH (7.32-7.42) pH Units VBG pCO2 (41-51) mmHg VBG pO2 (25-50) mmHg VBG HCO3 (21-27) mEq/L Sodium (136-145) mEq/L Potassium (3.5-5.1) mEq/L Chloride (98-107) mEq/L Carbon Dioxide (23-29) mEq/L BUN (6-20) mg/dL Creatinine (0.60-1.20) mg/dL Est GFR ( Amer) (> 60) Est GFR (Non-Af Amer) (> 60) BUN/Creatinine Ratio (6-26) Glucose (70-105) mg/dL Calculated Osmolality (280-300) Calcium (8.6-10.3) mg/dL Magnesium 1.7 (1.6-2.6) mg/dL Troponin I < 0.03 (< 0.04) ng/mL Beta-Hydroxybutyric Acd 0.32 H (0.02-0.27) mmol/L Urine Color (Yellow) Urine Clarity (Clear) Urine pH (5.0-8.0) pH Units Ur Specific Barnard (1.010-1.025) Urine Protein (Neg-Trace) mg/dL Urine Glucose (UA) (Normal) mg/dL Urine Ketones (Negative) mg/dL Urine Blood (Negative) Urine Nitrite (Negative) Urine Bilirubin (Negative) Urine Urobilinogen (Normal) mg/dL Ur Leukocyte Esterase (Negative) Urine Microscopic RBC (0-3) per hpf Urine Microscopic WBC (0-3) per hpf Ur Squamous Epith Cells (None-Few) per lpf Urine Bacteria (None-Few) per hpf Hyaline Casts (None-Few) per lpf Ur Culture Indicated? (NO) 02/24/19 02/24/19 02/24/19 Range/Units 17:53 19:45 19:54 WBC (4.3-11.1) K/mcL RBC (3.82-4.97) M/mcL Hgb (11.5-15.4) g/dL Hct (35.3-44.9) % MCV (83.0-100.0) fL MCH (28.0-33.3) pg MCHC (31.6-35.5) g/dL RDW (11.5-14.5) % Plt Count (140-400) K/mcL MPV (9.4-12.4) fL Immature Gran % (0-4) % Seg Neutrophils % % Lymphocytes % % Monocytes % % Eosinophils % % Basophils % % Neutrophils # (1.6-8.9) K/mcL Lymphocytes # (0.6-4.6) K/mcL Monocytes # (0.0-1.3) K/mcL Eosinophils # (0.0-0.6) K/mcL Basophils # (0.0-0.2) K/mcL PT (9.4-12.1) Seconds INR APTT (26.0-36.0) Seconds Heparin Anti-Xa, Unfract 0.04 L (0.30-0.70) IU/mL VBG pH 7.37 (7.32-7.42) pH Units VBG pCO2 38 L (41-51) mmHg VBG pO2 145 H (25-50) mmHg VBG HCO3 22 (21-27) mEq/L Sodium (136-145) mEq/L Potassium (3.5-5.1) mEq/L Chloride (98-107) mEq/L Carbon Dioxide (23-29) mEq/L BUN (6-20) mg/dL Creatinine (0.60-1.20) mg/dL Est GFR ( Amer) (> 60) Est GFR (Non-Af Amer) (> 60) BUN/Creatinine Ratio (6-26) Glucose (70-105) mg/dL Calculated Osmolality (280-300) Calcium (8.6-10.3) mg/dL Magnesium (1.6-2.6) mg/dL Troponin I (< 0.04) ng/mL Beta-Hydroxybutyric Acd (0.02-0.27) mmol/L Urine Color Yellow (Yellow) Urine Clarity Clear (Clear) Urine pH 6.0 (5.0-8.0) pH Units Ur Specific Barnard > 1.030 H (1.010-1.025) Urine Protein Negative (Neg-Trace) mg/dL Urine Glucose (UA) >=1000 H (Normal) mg/dL Urine Ketones Negative (Negative) mg/dL Urine Blood Moderate H (Negative) Urine Nitrite Negative (Negative) Urine Bilirubin Negative (Negative) Urine Urobilinogen Normal (Normal) mg/dL Ur Leukocyte Esterase Trace H (Negative) Urine Microscopic RBC 3-5 H (0-3) per hpf Urine Microscopic WBC 30-50 H (0-3) per hpf Ur Squamous Epith Cells Many H (None-Few) per lpf Urine Bacteria None Seen (None-Few) per hpf Hyaline Casts None Seen (None-Few) per lpf Ur Culture Indicated? YES A (NO) - Radiology Data Radiology results reviewed: Yes I reviewed the patient's radiology results. Chest X-Ray 02/24/19 15:54 IMPRESSION: No acute cardiopulmonary disease. D/ / Jordon Nascimento MD / Jordon Nascimento MD Interpreting Provider: Jorodn Nascimento MD Head CT 02/24/19 16:02 IMPRESSION: No acute intracranial abnormality. D/ / Manjula Mccormack MD / Manjula Mccormack MD Interpreting Provider: Manjula Mccormack MD - EKG Data EKG #1 EKG attestation: Yes I reviewed and interpreted this EKG. EKG results narrative: Normal sinus rhythm rate of 55. Normal axis. Normal intervals. No acute ischemic ST or T-wave abnormalities. When compared with prior from 02/10/19 there are no significant changes.
[2019-02-24] MEDS ORDERED: 0.9 % Sodium Chloride 1,000 ML IVC STA ×2 (16:11→19:10)
[2019-02-24 16:41] LABS: Basophils % 0.3 %; Eosinophils # 0.1 K/mcL (0.0-0.6); Eosinophils % 0.8 %; Hematocrit 39.4 % (35.3-44.9); Hemoglobin 13.1 g/dL (11.5-15.4); Immature Granulocytes % 0.1 % (0-4); Lymphocytes # 2.3 K/mcL (0.6-4.6); Lymphocytes % 26.1 %; Mean Corpuscular HGB Conc 33.2 g/dL (31.6-35.5); Mean Corpuscular Hemoglobin 27.4 pg (28.0-33.3); Mean Corpuscular Volume 82.4 fL (83.0-100.0); Mean Platelet Volume 10.8 fL (9.4-12.4); Monocytes # 0.4 K/mcL (0.0-1.3); Monocytes % 4.8 %; Platelet Count 272 K/mcL (140-400); Red Blood Count 4.78 M/mcL (3.82-4.97); Segmented Neutrophils % 67.9 %; White Blood Count 8.8 K/mcL (4.3-11.1)
[2019-02-24 16:48] LABS: Prothrombin Time 10.8 Seconds (9.4-12.1)
[2019-02-24 17:02] LABS: Magnesium 1.7 mg/dL (1.6-2.6)
[2019-02-24 17:03] LABS: Troponin I < 0.03 ng/mL (< 0.04)
[2019-02-24 17:04] LABS: BUN/Creatinine Ratio 28 (6-26); Blood Urea Nitrogen 18 mg/dL (6-20); Calcium 9.1 mg/dL (8.6-10.3); Carbon Dioxide 23 mEq/L (23-29); Chloride 103 mEq/L (98-107); Glucose 541 mg/dL (70-105); Osmolality,Calculated 302 (280-300); Potassium 4.1 mEq/L (3.5-5.1); Sodium 133 mEq/L (136-145); eGFR For African Americans > 60 (> 60); eGFR For Non-African Americans > 60 (> 60)
[2019-02-24 17:56] LABS: VBG HCO3 22 mEq/L (21-27); VBG PCO2 38 mmHg (41-51); VBG PH 7.37 pH Units (7.32-7.42); VBG PO2 145 mmHg (25-50)
[2019-02-24] MEDS ORDERED: *HR* FentaNYL (PF) 100 MCG/2 ML VIAL IVP ONE (19:10)
[2019-02-24] MEDS ORDERED: *HR* Heparin 5,000 UNIT/ML VIAL IVP ONE (19:11)
[2019-02-24] MEDS ORDERED: *HR* Heparin 5,000 UNIT/ML VIAL IVP PRN ×2 (19:11)
[2019-02-24] MEDS ORDERED: Heparin 25,000 UNIT/250 ML D5W 25,000 UNIT/250 ML IV.SOLN IVC SCH (19:15)
--- NOTE | 2019-02-24 19:35 | Emergency Department Note ---
Disposition Clinical Impression: Chest pain Qualifiers: Chest pain type: unspecified Qualified Code(s): R07.9 - Chest pain, unspecified Disposition: Admitted As Inpatient Condition: Good Referrals: uCrt Paez MD [Primary Care Provider] - Forms: ED Satisfaction Letter Time of Disposition: 19:35 General Adult HPI - General Chief complaint: ED Chest Pain Stated complaint: CP Time Seen by Provider: 02/24/19 15:48 Source: EMS Limitations: no limitations - History of Present Illness Pain Scale: 7 - Related Data Home Medications Medication Instructions Recorded Confirmed Omeprazole [PriLOSEC] 40 mg PO DAILY 05/12/17 02/11/19 Albuterol Sulfate [Ventolin Hfa] 2 puff IH Q4H PRN 07/09/17 02/11/19 Insulin Glargine,Hum.rec.anlog 50 units SQ BID 11/18/17 02/11/19 [Basaglar Kwikpen U-100] Gabapentin [Neurontin] 300 mg PO HS 12/23/18 02/11/19 Metformin HCl [Glucophage] 1,000 mg PO BID 12/23/18 01/04/19 clonazePAM [Clonazepam] 0.5 mg PO HS 12/23/18 02/11/19 Sotalol [Betapace] 120 mg PO Q12H 02/09/19 02/11/19 Acetaminophen [Tylenol] 650 mg PO DAILY PRN 02/11/19 02/11/19 Aspirin 324 mg PO QAM 02/11/19 02/11/19 Tizanidine HCl 4 mg PO TID PRN 02/11/19 02/11/19 Previous Rx's Medication Instructions Recorded Lisinopril [Zestril] 5 mg PO DAILY tablet 06/20/17 Atorvastatin [Lipitor] 40 mg PO HS #30 tablet 12/28/18 FLUoxetine HCl [Prozac] 60 mg PO DAILY #120 capsule 12/28/18 Dabigatran [Pradaxa] 150 mg PO BID #60 capsule 01/06/19 hydrOXYzine pamoate [Vistaril] 25 mg PO TID 4 Days #12 capsule 02/03/19 Allergies Allergy/AdvReac Type Severity Reaction Status Date / Time No Known Allergies Allergy Verified 02/11/19 11:15 Past Medical History - Past Medical History Medical history: Reports: atrial fibrillation, COPD, CVA, diabetes, hyperlipidemia, hypertension, myocardial infarction, TIA, other Surgical history: Reports: cholecystectomy Psychiatric history: Reports: depression 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 - Social History Smoking Status: Never smoker Smokeless Tobacco Status: No Alcohol use: Reports: occasionally Drug use: Reports: none Physical Exam - General Limitations: no limitations General appearance: alert Course Vital Signs Temperature 97.7 F 02/24/19 15:45 Pulse Rate 58 02/24/19 15:45 Respiratory Rate 16 02/24/19 15:45 Blood Pressure 90/54 02/24/19 15:45 O2 Sat by Pulse Oximetry 98 02/24/19 15:45 Temperature 97.7 F 02/24/19 15:45 Pulse Rate 47 02/24/19 19:07 Respiratory Rate 15 02/24/19 19:07 Blood Pressure 106/58 02/24/19 19:07 O2 Sat by Pulse Oximetry 99 02/24/19 19:07 Oxygen Delivery Oxygen Delivery Room Air Medical Decision Making - Lab Data Result diagrams: 02/24/19 16:16 02/24/19 16:16 Lab Results 02/24/19 02/24/19 02/24/19 Range/Units 16:16 16:16 16:16 WBC 8.8 (4.3-11.1) K/mcL RBC 4.78 (3.82-4.97) M/mcL Hgb 13.1 (11.5-15.4) g/dL Hct 39.4 (35.3-44.9) % MCV 82.4 L (83.0-100.0) fL MCH 27.4 L (28.0-33.3) pg MCHC 33.2 (31.6-35.5) g/dL RDW 13.0 (11.5-14.5) % Plt Count 272 (140-400) K/mcL MPV 10.8 (9.4-12.4) fL Immature Gran % 0.1 (0-4) % Seg Neutrophils % 67.9 % Lymphocytes % 26.1 % Monocytes % 4.8 % Eosinophils % 0.8 % Basophils % 0.3 % Neutrophils # 6.0 (1.6-8.9) K/mcL Lymphocytes # 2.3 (0.6-4.6) K/mcL Monocytes # 0.4 (0.0-1.3) K/mcL Eosinophils # 0.1 (0.0-0.6) K/mcL Basophils # 0.0 (0.0-0.2) K/mcL PT (9.4-12.1) Seconds INR APTT 29.9 (26.0-36.0) Seconds VBG pH (7.32-7.42) pH Units VBG pCO2 (41-51) mmHg VBG pO2 (25-50) mmHg VBG HCO3 (21-27) mEq/L Sodium 133 L (136-145) mEq/L Potassium 4.1 (3.5-5.1) mEq/L Chloride 103 (98-107) mEq/L Carbon Dioxide 23 (23-29) mEq/L BUN 18 (6-20) mg/dL Creatinine 0.64 (0.60-1.20) mg/dL Est GFR ( Amer) > 60 (> 60) Est GFR (Non-Af Amer) > 60 (> 60) BUN/Creatinine Ratio 28 H (6-26) Glucose 541 H* (70-105) mg/dL Calculated Osmolality 302 H (280-300) Calcium 9.1 (8.6-10.3) mg/dL Magnesium (1.6-2.6) mg/dL Troponin I (< 0.04) ng/mL Beta-Hydroxybutyric Acd (0.02-0.27) mmol/L 02/24/19 02/24/19 02/24/19 Range/Units 16:16 16:16 17:21 WBC (4.3-11.1) K/mcL RBC (3.82-4.97) M/mcL Hgb (11.5-15.4) g/dL Hct (35.3-44.9) % MCV (83.0-100.0) fL MCH (28.0-33.3) pg MCHC (31.6-35.5) g/dL RDW (11.5-14.5) % Plt Count (140-400) K/mcL MPV (9.4-12.4) fL Immature Gran % (0-4) % Seg Neutrophils % % Lymphocytes % % Monocytes % % Eosinophils % % Basophils % % Neutrophils # (1.6-8.9) K/mcL Lymphocytes # (0.6-4.6) K/mcL Monocytes # (0.0-1.3) K/mcL Eosinophils # (0.0-0.6) K/mcL Basophils # (0.0-0.2) K/mcL PT 10.8 (9.4-12.1) Seconds INR 1.0 APTT (26.0-36.0) Seconds VBG pH (7.32-7.42) pH Units VBG pCO2 (41-51) mmHg VBG pO2 (25-50) mmHg VBG HCO3 (21-27) mEq/L Sodium (136-145) mEq/L Potassium (3.5-5.1) mEq/L Chloride (98-107) mEq/L Carbon Dioxide (23-29) mEq/L BUN (6-20) mg/dL Creatinine (0.60-1.20) mg/dL Est GFR ( Amer) (> 60) Est GFR (Non-Af Amer) (> 60) BUN/Creatinine Ratio (6-26) Glucose (70-105) mg/dL Calculated Osmolality (280-300) Calcium (8.6-10.3) mg/dL Magnesium 1.7 (1.6-2.6) mg/dL Troponin I < 0.03 (< 0.04) ng/mL Beta-Hydroxybutyric Acd 0.32 H (0.02-0.27) mmol/L 02/24/19 Range/Units 17:53 WBC (4.3-11.1) K/mcL RBC (3.82-4.97) M/mcL Hgb (11.5-15.4) g/dL Hct (35.3-44.9) % MCV (83.0-100.0) fL MCH (28.0-33.3) pg MCHC (31.6-35.5) g/dL RDW (11.5-14.5) % Plt Count (140-400) K/mcL MPV (9.4-12.4) fL Immature Gran % (0-4) % Seg Neutrophils % % Lymphocytes % % Monocytes % % Eosinophils % % Basophils % % Neutrophils # (1.6-8.9) K/mcL Lymphocytes # (0.6-4.6) K/mcL Monocytes # (0.0-1.3) K/mcL Eosinophils # (0.0-0.6) K/mcL Basophils # (0.0-0.2) K/mcL PT (9.4-12.1) Seconds INR APTT (26.0-36.0) Seconds VBG pH 7.37 (7.32-7.42) pH Units VBG pCO2 38 L (41-51) mmHg VBG pO2 145 H (25-50) mmHg VBG HCO3 22 (21-27) mEq/L Sodium (136-145) mEq/L Potassium (3.5-5.1) mEq/L Chloride (98-107) mEq/L Carbon Dioxide (23-29) mEq/L BUN (6-20) mg/dL Creatinine (0.60-1.20) mg/dL Est GFR ( Amer) (> 60) Est GFR (Non-Af Amer) (> 60) BUN/Creatinine Ratio (6-26) Glucose (70-105) mg/dL Calculated Osmolality (280-300) Calcium (8.6-10.3) mg/dL Magnesium (1.6-2.6) mg/dL Troponin I (< 0.04) ng/mL Beta-Hydroxybutyric Acd (0.02-0.27) mmol/L Attestation Statement - Attestation Attestation: I reviewed the residents documentation and agree with the residents assessment and plan of care. I have personally had face to face time with the patient. (Brief History, Brief Exam, and MDM) I personally supervised and was present for the nguyen/critical portions of the following procedures completed by the resident: EKG 53 judie old female present to the ED with complaints of chest pain and was scheudled to have a [facility] during her last visist on 02.10 but left AMA due to family circumstances and has returned with worsneing chest pain and is currently on pradaxa She is othewrise diabetic and is hyperglycemic at this time and is willing to stay for te [facility] this time. WE have consulted cards as well. Admit to medicne
[2019-02-24 19:57] LABS: Bilirubin,Urine Negative (Negative); Blood,Urine Moderate (Negative); Clarity,Urine Clear (Clear); Color,Urine Yellow (Yellow); Glucose,Urine (UA) >=1000 mg/dL (Normal); Ketones,Urine Negative (Negative); Leukocyte Esterase,Urine Trace (Negative); Nitrite,Urine Negative (Negative); Protein,Urine Negative (Neg-Trace); Specific Gravity,Urine > 1.030 (1.010-1.025); Urobilinogen,Urine Normal (Normal)
[2019-02-24 19:59] LABS: Bacteria,Urine None Seen per hpf (None-Few); Hyaline Casts,Urine None Seen per lpf (None-Few); Squamous Epithelial Cell,Urine Many per lpf (None-Few); WBC,Urine 30-50 per hpf (0-3)
[2019-02-24] MEDS ORDERED: Insulin Human Regular 10 UNIT in 0.9 % Sodium Chloride 10 ML IV ONE (21:07)
[2019-02-24] MEDS ORDERED: D5% in Water 1,000 ML IVC PRN (21:08)
[2019-02-24] MEDS ORDERED: *HR* Dextrose 50 % in Water (Syg) 50 ML SYRINGE IVP PRN (21:08)
[2019-02-24] MEDS ORDERED: Dextrose Gel 15 GM/37.5 ML TUBE PO PRN ×2 (21:08)
[2019-02-24] MEDS ORDERED: Naloxone 0.4 MG/ML INJ IVP PRN (21:11)
[2019-02-24] MEDS ORDERED: Insulin DETEMIR 100 UNIT/ML X5UNITS SQ SCH (21:15)
[2019-02-24 21:32] LABS: Estimated Average Glucose 269 mg/dl
[2019-02-24] MEDS: Insulin LISPRO 300 UNITS/3 ML VIAL SQ SCH (23:01)
[2019-02-25] MEDS: Insulin LISPRO 300 UNITS/3 ML VIAL SQ SCH ×7 (00:06→13:31)
[2019-02-25] MEDS ORDERED: Morphine Sulfate 2 MG/ML SYRINGE IVP PRN (00:37)
[2019-02-25 01:23] LABS: Hematocrit 37.8 % (35.3-44.9); Hemoglobin 12.7 g/dL (11.5-15.4); Mean Corpuscular HGB Conc 33.6 g/dL (31.6-35.5); Mean Corpuscular Hemoglobin 27.9 pg (28.0-33.3); Mean Corpuscular Volume 83.1 fL (83.0-100.0); Mean Platelet Volume 10.4 fL (9.4-12.4); Platelet Count 241 K/mcL (140-400); Red Blood Count 4.55 M/mcL (3.82-4.97); Red Cell Distribution Width 13.1 % (11.5-14.5); White Blood Count 6.8 K/mcL (4.3-11.1)
[2019-02-25 01:42] LABS: BUN/Creatinine Ratio 28 (6-26); Blood Urea Nitrogen 16 mg/dL (6-20); Calcium 8.9 mg/dL (8.6-10.3); Carbon Dioxide 20 mEq/L (23-29); Chloride 107 mEq/L (98-107); Glucose 314 mg/dL (70-105); Osmolality,Calculated 295 (280-300); Potassium 3.5 mEq/L (3.5-5.1); Sodium 136 mEq/L (136-145); eGFR For African Americans > 60 (> 60); eGFR For Non-African Americans > 60 (> 60)
--- NOTE | 2019-02-25 06:57 | Internal Med History&Physical ---
Date of Encounter: 02/25/19 Time of Encounter: 01:00 Internal Medicine - H&P: HPI Chief complaint: Chest pain History of present illness: Ms. Jacome is a 53 year old female with history of atrial fibrillation, COPD, CVA, diabetes, HLD, HT, CAD, and TIA who presents to the ED with complaints of chest pain. Patient reports that earlier today she felt like she was in Atrial Fibrillation given her symptomatic palpitations for approximately 4 hours. Shortly after her palpatations subsided, she reports feeling weak and fatigued. She began having substernal chest pain shortly thereafter with radiation to her back. Patient also reported left arm numbness and tingling; patient subsequently broke out into a sweat. Symptoms lasted for approximately 45 minutes. Of note, she has been admitted here 3 times in last one month for chest pain and was recently admitted on 02/09/19 and evaluated by cardiology and scheduled for [facility]. Patient however left AMA due to urgent family matters. The patient was given aspirin in route by EMS. Vital signs on initial assessment showed fluid responsive hypotension and bradycardia. Laboratory workup notable for hyperglycemia 541 in the absence of evidence of DKA. Initial troponin negative. The patient is in normal sinus rhythm. EKG showed no acute ST or T- wave abnormality's. The patient had a head CT given her complaints of left arm tingling which showed no evidence of acute intracranial pathology. Chest x-ray stable. Given the patient's previous history cardiology was consulted and they recommended starting the patient on a heparin drip for potential catheterization. Past Med Surg Social Fam HX - Past Medical History Medical history: atrial fibrillation, COPD, CVA, diabetes, hyperlipidemia, hypertension, myocardial infarction, TIA, other Additional medical history: c-diff, cervialgia, Loop recorder, cervico-occipital neurolgia-cerebral hemorrhage,. anemia, spasmadic torticollis. ANTOINETTE. respiratory failure. dydfunctional uterine bleed, obesity, conversion disorder, left sided weakness from previous CVA Psychiatric history: depression - Past Surgical History Surgical History: cholecystectomy Additional surgical history: loop recorder and cardiac ablasion - Social History Smoking Status: Never smoker Smokeless Tobacco Status: No Alcohol use: occasionally Drug use: none - Family History Mother Living Status: Hx Family Cardiac Disorders: Yes Hx Family Respiratory Disorders: Yes (copd) Hx Family Cancer: Yes (lung cancer) Hx Family Endocrine Disorder: Yes (DM type II) Father Adopted: No Family Member Ethnicity: Non- Living Status: Hx Family Cardiac Disorders: Yes Hx Family Respiratory Disorders: Yes Hx Family Cancer: Yes (LUNG) Hx Family GI Disorders: No Hx Family Endocrine Disorder: Yes Hx Family Neuromuscular Disorders: No Hx Family Neurologic Disorders: No Hx Family HEENT Disorders: No Hx Family Autoimmune Disorders: No Internal Medicine - H&P: Meds Omeprazole [PriLOSEC] 40 mg PO DAILY 05/12/17 [History] Lisinopril [Zestril] 5 mg PO DAILY tablet 06/20/17 [Rx] Albuterol Sulfate [Ventolin Hfa] 2 puff IH Q4H PRN 07/09/17 [History] Insulin Glargine,Hum.rec.anlog [Basaglar Kwikpen U-100] 50 units SQ BID 11/18/17 [History] Gabapentin [Neurontin] 300 mg PO HS 12/23/18 [History] Metformin HCl [Glucophage] 1,000 mg PO BID 12/23/18 [History] clonazePAM [Clonazepam] 0.5 mg PO HS 12/23/18 [History] Atorvastatin [Lipitor] 40 mg PO HS #30 tablet 12/28/18 [Rx] FLUoxetine HCl [Prozac] 60 mg PO DAILY #120 capsule 12/28/18 [Rx] Dabigatran [Pradaxa] 150 mg PO BID #60 capsule 01/06/19 [Rx] hydrOXYzine pamoate [Vistaril] 25 mg PO TID 4 Days #12 capsule 02/03/19 [Rx] Sotalol [Betapace] 120 mg PO Q12H 02/09/19 [History] Acetaminophen [Tylenol] 650 mg PO PRN PRN 02/11/19 [History] Aspirin 324 mg PO QAM 02/11/19 [History] Tizanidine HCl 4 mg PO TID PRN 02/11/19 [History] Allergy/AdvReac Type Severity Reaction Status Date / Time No Known Allergies Allergy Verified 02/11/19 11:15 All Systems PM: A 10-system review of systems was performed and is negative for pertinent findings except as documented above in the HPI. - Constitutional Constitutional: no chills, no fever(s), no night sweats - EENT Eyes: no change in vision, no discharge, no pain, no photophobia Ears: no ear discharge, no ear pain, no tinnitus Nose, mouth and throat: no dysphagia, no nasal discharge, no neck pain, no sore throat - Cardiovascular Cardiovascular ROS IM: no chest pain, no diaphoresis, no dyspnea, no lightheadedness, no palpitations, no syncope - Respiratory Respiratory: no cough, no dyspnea, no wheezing, no excessive phlegm production - Gastrointestinal Gastrointestinal: no abdominal pain, no diarrhea, no hematemesis, no hematochezia, no melena, no nausea, no vomiting - Genitourinary Genitourinary: no change in urinary stream, no dysuria, no flank pain, no hematuria - Musculoskeletal Musculoskeletal ROS IM: no numbness, no tingling - Integumentary Integumentary IM: no rash, no unusual bruising - Neurological Neurological ROS: no confusion, no convulsions, no focal weakness, no numbness, no tingling, no tremor(s) - Hematologic/Lymphatic Hematologic/Lymphatic: no easy bruising - Constitutional Vitals: Temp Pulse Resp BP Pulse Ox 97.7 F 63 16 145/84 98 02/25/19 03:30 02/25/19 03:30 02/25/19 03:30 02/25/19 03:30 02/25/19 03:30 Exam: General: Alert and oriented x 3 Skin:Normal color, no rash, no lesions. HEENT:EOM, pupils equal, round and reactive. Cardiovascular:Normal S1 & S2, no rubs, murmurs or gallops. No JVD. Pulse regular. Lungs:Normal breath sounds, no wheezes or crackles. Abdomen:Soft, non-tender, no rigidity. Extremities:No deformity, no edema or tenderness, no joint swelling or clubbing. Neurological:Normal cognition and motor skills. Pulses:Carotid and radial pulses normal +2. Rest of the physical exam is non contributory Internal Med - H&P Results - Labs CBC & Chem 7: 02/25/19 01:09 02/25/19 01:09 Labs: Short CBC 02/24/19 02/25/19 Range/Units 16:16 01:09 WBC 8.8 6.8 (4.3-11.1) K/mcL Hgb 13.1 12.7 (11.5-15.4) g/dL Hct 39.4 37.8 (35.3-44.9) % Plt Count 272 241 (140-400) K/mcL Neutrophils # 6.0 (1.6-8.9) K/mcL BMP 02/24/19 02/25/19 16:16 01:09 Sodium 133 L 136 Potassium 4.1 3.5 Chloride 103 107 Carbon Dioxide 23 20 L BUN 18 16 Creatinine 0.64 0.58 L Glucose 541 H* 314 H Calcium 9.1 8.9 Cardiac Enzymes 02/24/19 02/25/19 Range/Units 16:16 01:09 Troponin I < 0.03 < 0.03 (< 0.04) ng/mL Urine 02/24/19 Range/Units 19:45 Urine Color Yellow (Yellow) Urine Clarity Clear (Clear) Urine pH 6.0 (5.0-8.0) pH Units Ur Specific [place] > 1.030 H (1.010-1.025) Urine Protein Negative (Neg-Trace) mg/dL Urine Glucose (UA) >=1000 H (Normal) mg/dL - ABG Interpretation ABG results: 02/24/19 17:53 VBG pH 7.37 VBG pCO2 38 L VBG pO2 145 H VBG HCO3 22 - Impressions ITS Impressions Chest X-Ray 02/24/19 15:54 IMPRESSION: No acute cardiopulmonary disease. D/ / Jordon Nascimento MD / Jordon Nascimento MD Interpreting Provider: Jordon Nascimento MD Head CT 02/24/19 16:02 IMPRESSION: No acute intracranial abnormality. D/ / Manjula Mccormack MD / Manjula Mccormack MD Interpreting Provider: Manjula Mccormack MD - Assessment and Plan (1) Chest pain Current Visit: Yes Status: Acute Assessment and plan: Presents with intermittent chest pain, SOB, and fatigue; symptoms similar to previous episodes of symptomatic atrial fibrillation. EKG shows sinus bradycardia in the absence of any ST or T-wave changes concerning for ischemia. Initial troponin negative. Recently started on Sotalol 80mg BID. (Previously failed Flecainide) Nuclear stress test October 2018- Negative for ischemia. TTE 12/2018 EF preserved. [facility] 2011- normal coronaries. -Telemetry -Trend troponin -Keep NPO -Continue heparin drip -Morphine for chest pain as nitroglycerin has been ineffective at controlling her pain. -Cardiology consult Qualifiers: Chest pain type: unspecified Qualified Code(s): R07.9 - Chest pain, unspecified (2) Hyperglycemia Current Visit: Yes Status: Acute Assessment and plan: Patient found to have a elevated blood glucose of 541. No evidence of DKA. -Start patient on sliding scale plus basal insulin with blood glucose checks every 2 hours with coverage. (3) Atrial fibrillation Current Visit: No Status: Acute Assessment and plan: History of transient atrial fibrillation s/p Ablation therapy currently on Sotalol. Patient presents with palpitations and chest pain intermittently for one day described as pressure and radiating to her back. Patient states pain is correlated with episodes of atrial fibrillation. EKG in ED shows sinus bradycardia with a heart rate in 50s. Currently on Pradaxa 150 mg twice a day, aspirin 81 mg, and sotalol 80 mg twice a day as well as lisinopril 5 mg and atorvastatin 40 mg. -Continue sotalol -Hold Pradaxa while patient on heparin drip -Follow up cardiology recommendations Qualifiers: Atrial fibrillation type: paroxysmal Qualified Code(s): I48.0 - Paroxysmal atrial fibrillation (4) Bradycardia Current Visit: No Status: Acute Assessment and plan: Sinus bradycardia in the 50s. Currently on sotalol. -Continue telemetry -Continue sotalol -Follow up cardiology recommendations (5) Left hand paresthesia Current Visit: No Status: Acute Assessment and plan: Patient reporting left hand numbness and tingling in the setting of chest pain and hyperglycemia. CT scan of the head shows no evidence of an acute intracranial pathology. Suspect likely secondary to hyperglycemia, diabetes related neuropathy versus cardiac related chest pain. -Correct underlying hyperglycemia and reassess. - Time Spent With Patient Total time spent is greater than 50% in coordination of care (as documented) at patient's floor/unit and/or counseling patient:
[2019-02-25] MEDS ORDERED: FLUoxetine 20 MG CAPSULE PO SCH (09:00)
[2019-02-25] MEDS ORDERED: NON-FORMULARY MEDICATION 1 EACH EACH (Insulin Glargine,Hum.Rec.Anlog [Basaglar Kwikpen U-1 SQ SCH (09:00)
[2019-02-25] MEDS ORDERED: Aspirin 81 MG TAB.CHEW PO SCH (09:00)
--- NOTE | 2019-02-25 09:32 | Cardiology Consult Note ---
<Yasir Lane N - Last Filed: 02/25/19 11:29> Date of Encounter: 02/25/19 Time of Encounter: 09:21 Assessment and Plan (1) Chest pain Current Visit: No Status: Acute 53F with significant PMH of atrial fibrillation, diabetes, hypertension, CAD, COPD, and diabetes presents to the ED complaining of chest pain Pt seen by cardiology on last admission 02/09 and LHC was recommended, but pt left AMA CXR with no acute cardiopulmonary disease. Lab results significant for negative troponin 2. ECG from 02/24/19 at 19:05 shows sinus bradycardia without evidence of acute ischemia. Echo from 12/25/18 with an EF of 60% and normal motion in all wall segments. Non-exercise Nuclear stress test from 11/08/18 with perfusion imaging negative for ischemia or infarct. -Continue Heparin drip up to LH -NPO at midnight -LHC in the morning Qualifiers: Chest pain type: other chest pain Qualified Code(s): R07.89 - Other chest pain; R07.8 - Other chest pain Discussion w patient/family: The assessment and plan as outlined above was discussed with the patient and/or family members who expressed understanding and agreement. All questions were answered. Thank you for involving us in the care of your patient. Please call with any questions. History of Present Illness Consult date: 02/25/19 Chief complaint: Chest Pain History of present illness: Ms. Jacome is a 53 year old female with PMH significant for atrial fibrillation, diabetes, hypertension, CAD, COPD, and diabetes presents to the ED complaining of chest pain that started after a 4 hour period of palpitations which patient described as similar to her previous episodes of atrial fibrillation. Patient states pain radiated to back and reported some left arm numbness and diaphoresis. Patient states the symptoms lasted for approximately 45 minutes. Patient was seen by cardiology 02/09/19 and scheduled for a left heart catheter which patient refused and left AMA due to family matters. CXR with no acute cardiopulmonary disease. Lab results significant for negative troponin 2. ECG from 02/24/19 at 19:05 shows sinus bradycardia without evidence of acute ischemia. Echo from 12/25/18 with an EF of 60% and normal motion in all wall segments. Non-exercise Nuclear stress test from 11/08/18 with perfusion imaging negative for ischemia or infarct. Past Med Surg Social Fam HX - Past Medical History Medical history: atrial fibrillation, COPD, CVA, diabetes, hyperlipidemia, hypertension, myocardial infarction, TIA, other Additional medical history: c-diff, cervialgia, Loop recorder, cervico-occipital neurolgia-cerebral hemorrhage,. anemia, spasmadic torticollis. ANTOINETTE. respiratory failure. dydfunctional uterine bleed, obesity, conversion disorder, left sided weakness from previous CVA Psychiatric history: depression - Past Surgical History Surgical History: cholecystectomy Additional surgical history: loop recorder and cardiac ablasion - Social History Smoking Status: Never smoker Smokeless Tobacco Status: No Alcohol use: occasionally Drug use: none - Family History Mother Living Status: Hx Family Cardiac Disorders: Yes Hx Family Respiratory Disorders: Yes (copd) Hx Family Cancer: Yes (lung cancer) Hx Family Endocrine Disorder: Yes (DM type II) Father Adopted: No Family Member Ethnicity: Non- Living Status: Hx Family Cardiac Disorders: Yes Hx Family Respiratory Disorders: Yes Hx Family Cancer: Yes (LUNG) Hx Family GI Disorders: No Hx Family Endocrine Disorder: Yes Hx Family Neuromuscular Disorders: No Hx Family Neurologic Disorders: No Hx Family HEENT Disorders: No Hx Family Autoimmune Disorders: No Medications and Allergies Omeprazole [PriLOSEC] 40 mg PO DAILY 05/12/17 [History] Albuterol Sulfate [Ventolin Hfa] 2 puff IH Q4H PRN 07/09/17 [History] Insulin Glargine,Hum.rec.anlog [Basaglar Kwikpen U-100] 50 units SQ BID 11/18/17 [History] Gabapentin [Neurontin] 300 mg PO HS 12/23/18 [History] Metformin HCl [Glucophage] 1,000 mg PO BID 12/23/18 [History] clonazePAM [Clonazepam] 0.5 mg PO HS 12/23/18 [History] Atorvastatin [Lipitor] 40 mg PO HS #30 tablet 12/28/18 [Rx] FLUoxetine HCl [Prozac] 60 mg PO DAILY #120 capsule 12/28/18 [Rx] Dabigatran [Pradaxa] 150 mg PO BID #60 capsule 01/06/19 [Rx] hydrOXYzine pamoate [Vistaril] 25 mg PO TID 4 Days #12 capsule 02/03/19 [Rx] Sotalol [Betapace] 120 mg PO Q12H 02/09/19 [History] Acetaminophen [Tylenol] 650 mg PO PRN PRN 02/11/19 [History] Tizanidine HCl 4 mg PO TID PRN 02/11/19 [History] Aspirin [Adult Aspirin Regimen] 81 mg PO DAILY 02/25/19 [History] Allergy/AdvReac Type Severity Reaction Status Date / Time No Known Allergies Allergy Verified 02/25/19 11:35 All Systems Review: The remainder of the systems were reviewed and are negative - Constitutional Constitutional: no chills, no fever(s) - EENT Eyes: no blurred vision, no loss of vision - Cardiovascular Cardiovascular: no dyspnea on exertion, no leg edema, no lightheadedness - Respiratory Respiratory: no cough, no dyspnea - Gastrointestinal Gastrointestinal: no abdominal pain, no diarrhea, no nausea - Musculoskeletal Musculoskeletal: back pain, no muscle cramps - Integumentary Integumentary: no erythema, no rash - Neurological Neurological: no abnormal speech, no loss of vision - Psychiatric Psychiatric: no anxiety, no depression - Hematological/Lymphatic Hematologic/Lymphatic: no easy bleeding, no easy bruising Physical Examination Vital Signs, Last 4 Hours Temp Pulse Resp BP Pulse Ox 02/25/19 07:13 98.6 F 67 19 152/67 97 General: Conversant, No Apparent Distress HEENT: Atraumatic, Normocephaly, Mucus Membranes Moist Neck: No JVD, Normal carotid pulses Cardiac: Reg Rate and Rhythm, Normal S1 and S2 Lungs: Normal Breath Sounds, No Wheeze, Rales, Rhonchi Neuro: Alert and responsive, No focal deficits noted Abdomen: Soft, Non-Tender Skin: No rashes noted on visualized skin Musculoskeletal: Other (TTP throughout the Chest wall) Extremities: No Clubbing, No Cyanosis, No Edema Results 02/25/19 01:09 02/25/19 01:09 Lab Results 02/24/19 02/24/19 02/24/19 16:16 16:16 16:16 WBC 8.8 Hgb 13.1 Hct 39.4 Plt Count 272 INR APTT 29.9 Sodium 133 L Potassium 4.1 Chloride 103 Carbon Dioxide 23 BUN 18 Creatinine 0.64 Glucose 541 H* Calcium 9.1 Magnesium Troponin I 02/24/19 02/24/19 02/25/19 16:16 16:16 01:09 WBC 6.8 Hgb 12.7 Hct 37.8 Plt Count 241 INR 1.0 APTT Sodium Potassium Chloride Carbon Dioxide BUN Creatinine Glucose Calcium Magnesium 1.7 Troponin I < 0.03 02/25/19 02/25/19 01:09 01:09 WBC Hgb Hct Plt Count INR APTT Sodium 136 Potassium 3.5 Chloride 107 Carbon Dioxide 20 L BUN 16 Creatinine 0.58 L Glucose 314 H Calcium 8.9 Magnesium Troponin I < 0.03 Consult Discharge Plan - Plan Referrals: Joanne Paez MD [Partnered Physician] - (Appointment has been requested.) <OdilonAgueda - Last Filed: 02/25/19 16:27> Date of Encounter: 02/25/19 - Attending Attestation I examined this patient and my medical decision-making was reviewed with the Resident Physician. I agree with the documented findings, disposition and treatment plan as described. Ms. Jacome presents with chest pain. This is her tenth admission this year for similar complaints. She was most recently seen in consultation on February 10, 2019 at which time a LHC was offered, patient initially declined then agreed and then left AMA so it was not completed. Serial troponins have been negative. No new ECG changes. Stress test 10/[address] [facility] 2011 normal coronaries. Again offered was the option of LHC to clarify her symptoms of chest pain. The R/B/A of the procedure were discussed with the patient in detail. She expressed understanding and has decided to proceed. Normal renal function. No upcoming surgeries. Full Code. Also with PAF on sotalol 80mg BID. Failed Flecainide. Follows with [facility]. On aspirin. CHADSVASC 3 - may benefit from full AC. Recommend follow up with [facility]. Assessment and Plan Discussion w patient/family: The assessment and plan as outlined above was discussed with the patient and/or family members who expressed understanding and agreement. All questions were answered. Thank you for involving us in the care of your patient. Please call with any questions. History of Present Illness History of present illness: Ms. Jacome is a 53 year old female All Systems Review: The remainder of the systems were reviewed and are negative Physical Examination Vital Signs, Last 4 Hours Temp Pulse Resp BP Pulse Ox 02/25/19 15:58 98.0 F 62 17 161/81 97 Results 02/25/19 01:09 02/25/19 01:09 Lab Results 02/24/19 02/24/19 02/24/19 16:16 16:16 16:16 WBC 8.8 Hgb 13.1 Hct 39.4 Plt Count 272 INR APTT 29.9 Sodium 133 L Potassium 4.1 Chloride 103 Carbon Dioxide 23 BUN 18 Creatinine 0.64 Glucose 541 H* Calcium 9.1 Magnesium Troponin I 02/24/19 02/24/19 02/25/19 16:16 16:16 01:09 WBC 6.8 Hgb 12.7 Hct 37.8 Plt Count 241 INR 1.0 APTT Sodium Potassium Chloride Carbon Dioxide BUN Creatinine Glucose Calcium Magnesium 1.7 Troponin I < 0.03 02/25/19 02/25/19 01:09 01:09 WBC Hgb Hct Plt Count INR APTT Sodium 136 Potassium 3.5 Chloride 107 Carbon Dioxide 20 L BUN 16 Creatinine 0.58 L Glucose 314 H Calcium 8.9 Magnesium Troponin I < 0.03
[2019-02-25] MEDS ORDERED: Acetaminophen 325 MG TABLET PO PRN (13:04)
--- NOTE | 2019-02-25 13:51 | Internal Med Progress Note ---
Hospitalist Progress Note - Encounter Date of Encounter: 02/25/19 Time of Encounter: 13:49 - Subjective Interval History: Ms. Jacome is a 53 year old female with history of atrial fibrillation on Pradaxa for anti coag, COPD, CVA, diabetes, HLD, HT, CAD, and TIA who presents to the ED with complaints of chest pain. Of note, she has been admitted here 3 times in last one month for chest pain and was recently admitted on 02/09/19 and evaluated by cardiology and scheduled for LHC. Patient however left AMA due to urgent family matters. She was admitted in the hospital and placed her on tele. She was started on Heparin gtt. She still c/o intermittent CP. Denied any SOB. - Exam Vitals: Temp Pulse Resp BP Pulse Ox 97.7 F 55 18 143/80 98 02/25/19 10:24 02/25/19 10:24 02/25/19 10:24 02/25/19 10:24 02/25/19 10:24 Exam: Gen: Alert, awake, Oriented to time,place and person Chest: Diminished breath sounds B/L, No wheezing, No crackles, No rales Heart: S1S2+ RRR No murmurs Abd: Soft, NT, BS +, No organomegaly Ext: No edema, pulses are palpable, No calf tenderness Neuro : No acute focal neuro deficits noticed Skin: No rash. - Assessment and Plan (1) Chest pain Current Visit: Yes Status: Acute Assessment and Plan: Negative serial trop x3 No acute ischemic changes on EKG She had normal stress test in 10/2018 However pt has been having recurrent CP and she is high risk for ACS Pt was evaluated by cardiology during her last hospitalization and recommneded for LHC, however she left AMA and came back again with CP. Card consulted cont Heparin gtt cont holding paradaxa possible LHC in AM (2) Hyperglycemia Current Visit: Yes Status: Acute Assessment and Plan: Uncontrolled BS Inc ISS to High + added Levemir HbA1C 11.0 (3) Diabetes mellitus, type II, insulin dependent Current Visit: No Status: Chronic Comments: was controlled yesterday- suspect higher today d/t stress and anxiety. will keep on current SS insulin and reheck gluc in am. (4) Atrial fibrillation Current Visit: No Status: Acute Assessment and Plan: rate controlled with Betapace Held pradaxa for now since she needs [facility] on Heparin gtt (5) Bradycardia Current Visit: No Status: Acute Assessment and Plan: stable and in 60's now Continue telemetry Continue sotalol (6) Essential hypertension Current Visit: No Status: Chronic Assessment and Plan: stable with current home meds (7) Hyperlipemia Current Visit: No Status: Chronic Assessment and Plan: resumed home meds - Time Spent with Patient Total time spent is greater than 50% in coordination of care (as documented) at patient's floor/unit and/or counseling patient: Internal Medicine: Result - Labs CBC & Chem 7: 02/25/19 01:09 02/25/19 01:09 Labs: Short CBC 02/24/19 02/25/19 Range/Units 16:16 01:09 WBC 8.8 6.8 (4.3-11.1) K/mcL Hgb 13.1 12.7 (11.5-15.4) g/dL Hct 39.4 37.8 (35.3-44.9) % Plt Count 272 241 (140-400) K/mcL Neutrophils # 6.0 (1.6-8.9) K/mcL BMP 02/24/19 02/25/19 16:16 01:09 Sodium 133 L 136 Potassium 4.1 3.5 Chloride 103 107 Carbon Dioxide 23 20 L BUN 18 16 Creatinine 0.64 0.58 L Glucose 541 H* 314 H Calcium 9.1 8.9 Cardiac Enzymes 02/24/19 02/25/19 Range/Units 16:16 01:09 Troponin I < 0.03 < 0.03 (< 0.04) ng/mL Urine 02/24/19 Range/Units 19:45 Urine Color Yellow (Yellow) Urine Clarity Clear (Clear) Urine pH 6.0 (5.0-8.0) pH Units Ur Specific [place] > 1.030 H (1.010-1.025) Urine Protein Negative (Neg-Trace) mg/dL Urine Glucose (UA) >=1000 H (Normal) mg/dL - ABG Interpretation ABG results: PT/INR, D-dimer PT 10.8 Seconds (9.4-12.1) 02/24/19 16:16 - Impressions Impressions Chest X-Ray 02/24/19 15:54 IMPRESSION: No acute cardiopulmonary disease. D/ / Jordon Nascimento MD / Jordon Nascimento MD Interpreting Provider: Jordon Nascimento MD Head CT 02/24/19 16:02 IMPRESSION: No acute intracranial abnormality. D/ / Manjula Mccormack MD / Manjula Mccormack MD Interpreting Provider: Manjula Mccormack MD Consult Discharge Plan - Plan Referrals: Joanne Paez MD [Partnered Physician] - (Appointment has been requested.) (1) Chest pain Qualifiers: Chest pain type: unspecified Qualified Code(s): R07.9 - Chest pain, unspecified (4) Atrial fibrillation Qualifiers: Atrial fibrillation type: paroxysmal Qualified Code(s): I48.0 - Paroxysmal atrial fibrillation (7) Hyperlipemia Qualifiers: Hyperlipidemia type: unspecified Qualified Code(s): E78.5 - Hyperlipidemia, unspecified
[2019-02-25 15:59] VITALS: BP 161/81
--- NOTE | 2019-02-25 16:28 | Event Note ---
Date of Encounter: 02/25/19 Time of Encounter: 16:30 HAS-BLED Score - Score Hypertension: Uncontrolled,>160 mmhg systolic Stroke: Prior history of stroke Medication usage predisposing to bleeding: Antiplatelet agents, NSAIDs, Anticoagulants Score: 3
[2019-02-25] MEDS ORDERED: Insulin LISPRO 300 UNITS/3 ML VIAL SQ SCH ×2 (16:30→21:00)
[2019-02-25] MEDS ORDERED: *HR* OxyCODONE/APAP 5/325 TABLET PO PRN (16:59)
[2019-02-25] MEDS ORDERED: Insulin DETEMIR 100 UNIT/ML X5UNITS SQ SCH (21:00)
[2019-02-25] MEDS ORDERED: Gabapentin 300 MG CAPSULE PO SCH (21:00)
--- NOTE | 2019-02-26 15:14 | Electrocardiograph Report ---
[facility] Test Date: 2019-02-24 Pat Name: Christie Jacome Department: EXAM15 Room: 3B39 Gender: F Manager Division: : 1965 Requested By: Jennifer Olmedo Order Number: [id number] Reading MD: Yovani Hayes Measurements Intervals [place] Rate: 55 P: 76 UT: 121 QRS: 80 QRSD: 91 T: 79 QT: 458 QTc: 439 Interpretive Statements Sinus rhythm Minimal ST depression, inferior leads Baseline wander in lead(s) II III aVF V1 V3 V4 V5 Electronically Signed On 02-26-2019 15:12:07 EDT by Yovani Hayes
--- NOTE | 2019-02-26 15:14 | Electrocardiograph Report ---
[facility] [employer] Test Date: 2019-02-24 Pat Name: Christie Jacome Department: EXAM15 Room: 3B39 Gender: F Insulator Technician: : 1965 Requested By: Jennifer Olmedo Order Number: [id number] Reading MD: Yovani Hayes Measurements Intervals [place] Rate: 46 P: 53 [place]: 119 QRS: 61 QRSD: 103 T: 59 QT: 543 QTc: 475 Interpretive Statements Sinus bradycardia Borderline short [place] interval Electronically Signed On 02-26-2019 15:13:08 EDT by Yovani Hayes
--- NOTE | 2019-02-26 16:50 | Discharge Summary ---
- NOTES TO OUTPATIENT PROVIDER Notes to Outpatient Provider: Pt left AMA.. This second time in a row. Date of Encounter: 02/26/19 Time of Encounter: 16:48 - Discharge Diagnosis (1) Chest pain Priority: Primary Status: Acute Qualifiers: Chest pain type: unspecified Qualified Code(s): R07.9 - Chest pain, unspecified (2) Hyperglycemia Priority: Secondary Status: Acute (3) Diabetes mellitus, type II, insulin dependent Priority: Secondary Status: Chronic (4) Atrial fibrillation Priority: Secondary Status: Acute Qualifiers: Atrial fibrillation type: paroxysmal Qualified Code(s): I48.0 - Paroxysmal atrial fibrillation (5) Bradycardia Priority: Secondary Status: Acute (6) Essential hypertension Priority: Secondary Status: Chronic (7) Hyperlipemia Priority: Secondary Status: Chronic Qualifiers: Hyperlipidemia type: unspecified Qualified Code(s): E78.5 - Hyperlipidemia, unspecified Hospital course: Ms. Jacome is a 53 year old female with history of atrial fibrillation on Pradaxa for anti coag, COPD, CVA, diabetes, HLD, HT, CAD, and TIA who presents to the ED with complaints of chest pain. Of note, she has been admitted here 3 times in last one month for chest pain and was recently admitted on 02/09/19 and evaluated by cardiology and scheduled for LHC. Patient however left AMA due to urgent family matters. She was admitted in the hospital and placed her on tele. She was started on Heparin gtt. She was evaluated by technical stenographer and scheduled for LHC in the morning. However pt left AMA last night with out informing anyone on the floor. This was second time in 2 weeks she left AMA. I examined this patient in the morning, however I was not in the hospital to talk to her when she left AMA last night on 02/25/19 @ 7:30 PM - Time Spent with Patient Total time spent providing and/or coordinating discharge services: - Discharge Medications Prescriptions: No Action Omeprazole [PriLOSEC] 40 mg PO DAILY Albuterol Sulfate [Ventolin Hfa] 2 puff IH Q4H PRN PRN Reason: Shortness Of Breath Insulin Glargine,Hum.rec.anlog [Basaglar Kwikpen U-100] 50 units SQ BID clonazePAM [Clonazepam] 0.5 mg PO HS Gabapentin [Neurontin] 300 mg PO HS Metformin HCl [Glucophage] 1,000 mg PO BID Atorvastatin [Lipitor] 40 mg PO HS #30 tablet FLUoxetine HCl [Prozac] 60 mg PO DAILY #120 capsule Dabigatran [Pradaxa] 150 mg PO BID #60 capsule hydrOXYzine pamoate [Vistaril] 25 mg PO TID 4 Days #12 capsule Sotalol [Betapace] 120 mg PO Q12H Acetaminophen [Tylenol] 650 mg PO PRN PRN PRN Reason: Pain Tizanidine HCl 4 mg PO TID PRN PRN Reason: Muscle Spasm Aspirin [Adult Aspirin Regimen] 81 mg PO DAILY Home Medications: Omeprazole [PriLOSEC] 40 mg PO DAILY 05/12/17 [History] Albuterol Sulfate [Ventolin Hfa] 2 puff IH Q4H PRN 07/09/17 [History] Insulin Glargine,Hum.rec.anlog [Basaglar Kwikpen U-100] 50 units SQ BID 11/18/17 [History] Gabapentin [Neurontin] 300 mg PO HS 12/23/18 [History] Metformin HCl [Glucophage] 1,000 mg PO BID 12/23/18 [History] clonazePAM [Clonazepam] 0.5 mg PO HS 12/23/18 [History] Atorvastatin [Lipitor] 40 mg PO HS #30 tablet 12/28/18 [Rx] FLUoxetine HCl [Prozac] 60 mg PO DAILY #120 capsule 12/28/18 [Rx] Dabigatran [Pradaxa] 150 mg PO BID #60 capsule 01/06/19 [Rx] hydrOXYzine pamoate [Vistaril] 25 mg PO TID 4 Days #12 capsule 02/03/19 [Rx] Sotalol [Betapace] 120 mg PO Q12H 02/09/19 [History] Acetaminophen [Tylenol] 650 mg PO PRN PRN 02/11/19 [History] Tizanidine HCl 4 mg PO TID PRN 02/11/19 [History] Aspirin [Adult Aspirin Regimen] 81 mg PO DAILY 02/25/19 [History] Allergies/Adverse Reactions: Allergy/AdvReac Type Severity Reaction Status Date / Time No Known Allergies Allergy Verified 02/25/19 11:35 Date of admission: 02/24/19 20:13 Primary care physician: Curt Paez MD Consults: 02/24/19 18:58 Consult to Cardiology [CONS] Stat Comment: Consulting Provider: Cardiology Rew Reason for Consult: ischemic eval, previously left AMA prior to [facility] Time Notified: 18:58 Call Completed: Yes - Constitutional Vitals: Temp Pulse Resp BP Pulse Ox 98.0 F 62 17 161/81 97 02/25/19 15:58 02/25/19 15:58 02/25/19 15:58 02/25/19 15:58 02/25/19 15:58 General appearance: Present: cooperative, A&O X 3, answers questions appropriately Exam: a - Patient Status Disposition: Left Against Medical Advice Condition: Good - Discharge Instructions Follow Up With: Joanne Paez MD [Partnered Physician] - (Appointment has been requested.)
== END 2019-02-25 19:20 | disposition left against medical advice (07) ==
LOC: EMEROOARM 15:43 → 3BNU 15:43 → SUATTDRO 20:13 → 3BNU 22:10
PROVIDERS: ADMIT Internal Medicine Nephrology; ATTEND Family Medicine

== ENCOUNTER 2019-04-08 19:59 | Observation (INO) ==
[2019-04-08] MEDS ORDERED: 0.9 % Sodium Chloride 1,000 ML IVC ONE ×2 (20:23→23:24)
[2019-04-08] MEDS ORDERED: Aspirin 325 MG TABLET PO ONE (20:23)
--- NOTE | 2019-04-08 20:28 | Emergency Department Note ---
Disposition Clinical Impression: Atrial fibrillation with RVR, Phlegmon, Elevated troponin, Facial cellulitis Disposition: Admitted As Inpatient Condition: Fair Time of Disposition: 23:26 (accepted by Dr. Singleton) Arrhythmia/Palpitations HPI - General Chief Complaint: ED Arrhythmia/Palpitations Stated Complaint: irregular heartbeat Time Seen by Provider: 04/08/19 20:17 Source: patient, EMS Limitations: no limitations - History of Present Illness HPI Narrative: Ms. Jacome is a 53 year old female with history of atrial fibrillation on sotalol and pradaxa, CVA, IDDM, HTN . Presented to the ER up with multiple complaints. Patient states starting around 1600, she started to have palpitations in her chest, with a feeling of her heart beating out of her chest, with chest tightness. She denies specific chest pain. She denies any radiation of this discomfort. She states she did have associated shortness of breath and felt as though she was unable to catch her breath. No recent cough, fevers or chills. She does have history of atrial fibrillation, she has been taking her sotalol, has been taking her Pradaxa. No recent missed doses. Patient also states that approximately 4-5 days ago, she had an incident where she fell hit her head, on the left side of her face, subsequently has had a swollen lip with tenderness around the inside left upper lip area. She denies any fevers or chills from this. She initially was seen in the ER for chest pain during that day as well as concern for left-sided facial weakness, upper arm weakness, numbness and tingling in the left arm, leg and face, she states this is continued and been unchanged. She does however have concern that the swelling in the lip has increased. She is in no further trauma or falls. She was initially admitted for chest pain at that point in time, however she left AMA, she then states she was seen at [facility] for the left-sided weakness and numbness tingling, at that point in time she was admitted as well, she states she left AMA once again and has not been seen since. She denies any change in the symptoms. Patient also states she has history of high blood glucose, she states that her glucose to complete runs in the 400s, this is unchanged for her. She does use her insulin, however is not changed her dosing quite some time. Pt Subjective Complaint: rapid heart beat - Related Data Home Medications Medication Instructions Recorded Confirmed Omeprazole [PriLOSEC] 40 mg PO DAILY 05/12/17 04/08/19 Albuterol Sulfate [Ventolin Hfa] 2 puff IH Q4H PRN 07/09/17 04/08/19 Insulin Glargine,Hum.rec.anlog 50 units SQ BID 11/18/17 04/08/19 [Basaglar Kwikpen U-100] Gabapentin [Neurontin] 300 mg PO HS 12/23/18 04/08/19 Metformin HCl [Glucophage] 1,000 mg PO BID 12/23/18 04/08/19 clonazePAM [Clonazepam] 0.5 mg PO HS 12/23/18 04/08/19 Sotalol [Betapace] 120 mg PO Q12H 02/09/19 04/08/19 Acetaminophen [Tylenol] 650 mg PO PRN PRN 02/11/19 04/08/19 Aspirin [Adult Aspirin Regimen] 81 mg PO DAILY 02/25/19 04/08/19 Clindamycin Palmitate HCl 75 mg PO Q8HR 04/08/19 04/08/19 Codeine Phosphate/Guaifenesin 10 - 100 mg PO Q4-6H PRN 04/08/19 04/08/19 Promethazine 25 mg/50 ml-Ns 25 mg PO Q8HR 04/08/19 04/08/19 Zanaflex 4 mg PO TID 04/08/19 04/08/19 Previous Rx's Medication Instructions Recorded Atorvastatin [Lipitor] 40 mg PO HS #30 tablet 12/28/18 Dabigatran [Pradaxa] 150 mg PO BID #60 capsule 01/06/19 Allergies Allergy/AdvReac Type Severity Reaction Status Date / Time No Known Allergies Allergy Verified 02/25/19 11:35 All systems ED: reviewed and negative except as stated. Review of Systems: As Per HPI Constitutional: Denies: fever, chills ENT ED: Reports: dental pain. Denies: congestion Cardiovascular: Reports: chest pain, palpitations, dyspnea on exertion. Denies: syncope Respiratory: Reports: dyspnea, wheezes. Denies: cough, hemoptysis, sputum production Gastrointestinal: Denies: abdominal pain, nausea, vomiting, diarrhea Genitourinary: Denies: urgency, dysuria Musculoskeletal: Denies: back pain Integumentary: Denies: rash Neurological: Reports: weakness, numbness, paresthesias. 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 - Social History Smoking Status: Never smoker Smokeless Tobacco Status: No Alcohol use: Reports: occasionally Drug use: Reports: none Physical Exam - General Limitations: no limitations General appearance: alert, in no apparent distress - Head Head exam: atraumatic, normocephalic, normal inspection - Eye Eye exam: Present: normal appearance, PERRL, EOMI - ENT ENT exam: mucous membranes moist, TM's normal bilaterally, other (Patient was swelling and erythema to the left upper lip, and throughout the inner aspect, to the oromucosa with a fluctuant area, tender to palpation no further oral lesions are noted. Patient is edentulous) - Neck Neck exam: Present: full ROM, trachea midline, lymphadenopathy - Chest Chest inspection: Present: normal inspection, symmetric chest wall rise - Respiratory Respiratory exam: Present: normal lung sounds bilaterally - Cardiovascular Cardiovascular exam: Present: tachycardia, irregular rhythm - Abdominal Exam Abdominal exam: Present: soft, Non-Tender. Absent: tenderness, distention, guarding, rebound, rigidity - Extremities Exam Extremities exam: Present: normal inspection, full ROM. Absent: tenderness, pedal edema - Expanded Lower Extremity Exam Neurovascular/Tendon exam: Absent: motor deficit, sensory deficit, tendon deficit - Back Exam Back exam: Present: normal inspection, full ROM. Absent: tenderness - Neurological Exam Neurological exam: Present: alert, oriented X3 - Expanded Neurological Exam Patient oriented to: Present: person, place, time Speech: Present: fluid speech Cranial nerves: EOM function (II, III, IV, ): Normal, facial sensation (V): Abnormal Left, facial palsy (VII): Abnormal Left, spinal accessory function (XI): Normal, tongue deviation (XII): Normal Cerebellar function: finger to nose: Normal Motor strength - LUE: 5/5 Motor strength - RUE: 5/5 Motor strength - LLE: 5/5 Motor strength - RLE: 5/5 Upper motor neuron exam: alberto neglect: Absent bilaterally, pronator drift: Absent bilaterally Sensory exam upper extremity: light touch: Abnormal Left Sensory exam lower extremity: light touch: Abnormal Left Coma Scale Eye Opening: Spontaneous Coma Scale Motor Response: Obeys Commands Coma Scale Verbal Response: Oriented Coma Scale Total: 15 - Psychiatric Psychiatric exam: Present: normal affect, normal mood - Skin Skin exam: Present: warm, dry, intact, normal color. Absent: rash, diaphoresis Course Vital Signs Temperature 98.4 F 04/08/19 20:03 Pulse Rate 120 04/08/19 20:03 Respiratory Rate 12 04/08/19 20:03 Blood Pressure 101/48 04/08/19 20:03 O2 Sat by Pulse Oximetry 99 04/08/19 20:03 Temperature 98.2 F 04/09/19 00:57 Pulse Rate 121 04/09/19 00:57 Respiratory Rate 18 04/09/19 00:57 Blood Pressure 182/112 04/09/19 00:57 O2 Sat by Pulse Oximetry 98 04/09/19 01:18 Oxygen Delivery Oxygen Delivery Room Air Arrhythmia/Palpitations - MDM Narrative Medical decision making narrative: Patient is a 53-year-old female who is presenting via EMS for multiple complaints. On arrival patient was found to be in atrial fibrillation with RVR. She is otherwise stable in no acute distress with normotensive pressures. She was started on Cardizem bolus of 10 mg twice a day, she was then started on Cardizem drip. Initial heart rate started in the 150s to 160s, after the bolus and drip was started, she began to go down to the 120s, drip Was continued at 12.5 mg and patient continued to come down around the low 100s. She continued to be in atrial fibrillation and at times in a flutter. She would have occasional normal beats. Patient's blood pressure stayed about the 120s systolic. CBC, BMP and troponin were performed. Hemoglobin is stable, no electrolyte abnormalities. Troponin was slightly elevated at 0.04, suspect this is secondary to demand ischemia given initial fibrillation. Patient has known history of atrial fibrillation, currently on Pradaxa as well as sotalol. Given the patient's swelling to the left upper lip, and concern for cellulitis versus abscess, a CT of the face was performed which did show a phlegmon without drainable abscess. Given this, patient was started on clindamycin. She was given a total of 2 L normal saline. Patient has otherwise remained stable here in the ER, she will be admitted for further observation, treatment and patient agrees with admission. - Differential Diagnosis Differential Diagnosis: Likely: palpitations, sinus tachycardia, artial arrhythmia, supraventricular tachycardia, metabolic/electrolyte disturbance - Medical Records Medical records reviewed: Yes I reviewed the patient's medical records. - Lab Data Lab results reviewed: Yes I reviewed the patient's lab results. Result diagrams: 04/08/19 21:05 04/08/19 21:05 Lab Results 04/08/19 04/08/19 04/08/19 Range/Units 21: 21:05 21:05 WBC 7.5 (4.3-11.1) K/mcL RBC 4.82 (3.82-4.97) M/mcL Hgb 13.7 (11.5-15.4) g/dL Hct 40.9 (35.3-44.9) % MCV 84.9 (83.0-100.0) fL MCH 28.4 (28.0-33.3) pg MCHC 33.5 (31.6-35.5) g/dL RDW 13.1 (11.5-14.5) % Plt Count 311 (140-400) K/mcL MPV 11.1 (9.4-12.4) fL Immature Gran % 0.4 (0-4) % Seg Neutrophils % 63.0 % Lymphocytes % 29.6 % Monocytes % 5.5 % Eosinophils % 1.1 % Basophils % 0.4 % Neutrophils # 4.7 (1.6-8.9) K/mcL Lymphocytes # 2.2 (0.6-4.6) K/mcL Monocytes # 0.4 (0.0-1.3) K/mcL Eosinophils # 0.1 (0.0-0.6) K/mcL Basophils # 0.0 (0.0-0.2) K/mcL PT 11.2 (9.4-12.1) Seconds INR 1.0 APTT 35.9 (26.0-36.0) Seconds VBG pH (7.32-7.42) pH Units VBG pCO2 (41-51) mmHg VBG pO2 (25-50) mmHg VBG HCO3 (21-27) mEq/L VBG Total CO2 mEq/L VBG O2 Saturation % VBG Base Excess mEq/L VBG Hematocrit (35.3-44.9) % VBG Lactic Acid (0.5-2.2) mmol/L Venous Sodium (135-145) mEq/L Sodium 137 (136-145) mEq/L Venous Potassium (3.5-5.5) mEq/L Potassium 3.6 (3.5-5.1) mEq/L Venous Chloride (98-107) mEq/L Chloride 99 (98-107) mEq/L Carbon Dioxide 24 (23-29) mEq/L BUN 9 (6-20) mg/dL Creatinine 0.70 (0.60-1.20) mg/dL Est GFR ( Amer) > 60 (> 60) Est GFR (Non-Af Amer) > 60 (> 60) BUN/Creatinine Ratio 13 (6-26) Glucose 482 H (70-105) mg/dL Whole Bld Glucose (65-95) mg/dl Calculated Osmolality 304 H (280-300) Calcium 9.6 (8.6-10.3) mg/dL Venous Ioniz Calcium (1.15-1.35) mmol/L Magnesium 1.7 (1.6-2.6) mg/dL Troponin I 0.04 H* (< 0.04) ng/mL Beta-Hydroxybutyric Acd (0.02-0.27) mmol/L TSH 6.069 H (0.340-5.600) mcIU/mL Urine Color (Yellow) Urine Clarity (Clear) Urine pH (5.0-8.0) pH Units Ur Specific [place] (1.010-1.025) Urine Protein (Neg-Trace) mg/dL Urine Glucose (UA) (Normal) mg/dL Urine Ketones (Negative) mg/dL Urine Blood (Negative) Urine Nitrite (Negative) Urine Bilirubin (Negative) Urine Urobilinogen (Normal) mg/dL Ur Leukocyte Esterase (Negative) Person Notif of Crit 04/08/19 04/08/19 04/08/19 Range/Units 21:05 21:21 21:30 WBC (4.3-11.1) K/mcL RBC (3.82-4.97) M/mcL Hgb (11.5-15.4) g/dL Hct (35.3-44.9) % MCV (83.0-100.0) fL MCH (28.0-33.3) pg MCHC (31.6-35.5) g/dL RDW (11.5-14.5) % Plt Count (140-400) K/mcL MPV (9.4-12.4) fL Immature Gran % (0-4) % Seg Neutrophils % % Lymphocytes % % Monocytes % % Eosinophils % % Basophils % % Neutrophils # (1.6-8.9) K/mcL Lymphocytes # (0.6-4.6) K/mcL Monocytes # (0.0-1.3) K/mcL Eosinophils # (0.0-0.6) K/mcL Basophils # (0.0-0.2) K/mcL PT (9.4-12.1) Seconds INR APTT (26.0-36.0) Seconds VBG pH 7.43 H (7.32-7.42) pH Units VBG pCO2 38 L (41-51) mmHg VBG pO2 133 H (25-50) mmHg VBG HCO3 25 (21-27) mEq/L VBG Total CO2 26 mEq/L VBG O2 Saturation 99 % VBG Base Excess 1 mEq/L VBG Hematocrit 43.0 (35.3-44.9) % VBG Lactic Acid 4.0 H* (0.5-2.2) mmol/L Venous Sodium 140 (135-145) mEq/L Sodium (136-145) mEq/L Venous Potassium 3.6 (3.5-5.5) mEq/L Potassium (3.5-5.1) mEq/L Venous Chloride 104 (98-107) mEq/L Chloride (98-107) mEq/L Carbon Dioxide (23-29) mEq/L BUN (6-20) mg/dL Creatinine (0.60-1.20) mg/dL Est GFR ( Amer) (> 60) Est GFR (Non-Af Amer) (> 60) BUN/Creatinine Ratio (6-26) Glucose (70-105) mg/dL Whole Bld Glucose 470 H (65-95) mg/dl Calculated Osmolality (280-300) Calcium (8.6-10.3) mg/dL Venous Ioniz Calcium 1.13 L (1.15-1.35) mmol/L Magnesium (1.6-2.6) mg/dL Troponin I (< 0.04) ng/mL Beta-Hydroxybutyric Acd 0.12 (0.02-0.27) mmol/L TSH (0.340-5.600) mcIU/mL Urine Color Yellow (Yellow) Urine Clarity Clear (Clear) Urine pH 6.0 (5.0-8.0) pH Units Ur Specific [place] > 1.030 H (1.010-1.025) Urine Protein Negative (Neg-Trace) mg/dL Urine Glucose (UA) >=1000 H (Normal) mg/dL Urine Ketones Negative (Negative) mg/dL Urine Blood Negative (Negative) Urine Nitrite Negative (Negative) Urine Bilirubin Negative (Negative) Urine Urobilinogen Normal (Normal) mg/dL Ur Leukocyte Esterase Negative (Negative) Person Notif of Theresa Anderson [facility] - Radiology Data Radiology results reviewed: Yes I reviewed the patient's radiology results. Chest X-Ray 04/08/19 21:12 IMPRESSION: No acute process. D/ / Virgil Segura MD / iVrgil Segura MD Interpreting Provider: Virgil Segura MD Chest X-Ray 04/08/19 21:12 IMPRESSION: No acute process. D/ / Virgil Segura MD / Virgil Segura MD Interpreting Provider: Virgil Segura MD Face CT 04/08/19 22:52 IMPRESSION: Abnormal soft tissue swelling between the inferior nasal tissues in the maxilla. There are areas of heterogeneous density within this soft tissue thickening. This is likely due to cellulitis and developing phlegmonous tissue. There is no discrete abscess at this time D/ / Jordon Hoover / Jordon Hoover Interpreting Provider: Jordon Hoover - EKG Data EKG attestation: Yes I reviewed and interpreted this EKG. EKG results narrative: Initial EKG on her arrival at 2006 with ventricular rate of 144, irregularly irregular rhythm with occasional sinus beats, appears to be in atrial fibrillation with RVR. This is a change from prior EKG on 04/02/2019 which showed normal sinus rhythm.
[2019-04-08] MEDS ORDERED: Isovue-370 500 ML BOTTLE IVP ONE (20:44)
[2019-04-08 21:37] LABS: VBG Base Excess 1 mEq/L; VBG Chloride 104 mEq/L (98-107); VBG Glucose 470 mg/dl (65-95); VBG HCO3 25 mEq/L (21-27); VBG Ionized Calcium 1.13 mmol/L (1.15-1.35); VBG Oxygen Saturation 99 %; VBG PCO2 38 mmHg (41-51); VBG PH 7.43 pH Units (7.32-7.42); VBG PO2 133 mmHg (25-50); VBG Total CO2 26 mEq/L
[2019-04-08 21:41] LABS: Basophils % 0.4 %; Eosinophils # 0.1 K/mcL (0.0-0.6); Eosinophils % 1.1 %; Hematocrit 40.9 % (35.3-44.9); Hemoglobin 13.7 g/dL (11.5-15.4); Immature Granulocytes % 0.4 % (0-4); Lymphocytes # 2.2 K/mcL (0.6-4.6); Lymphocytes % 29.6 %; Mean Corpuscular HGB Conc 33.5 g/dL (31.6-35.5); Mean Corpuscular Hemoglobin 28.4 pg (28.0-33.3); Mean Corpuscular Volume 84.9 fL (83.0-100.0); Mean Platelet Volume 11.1 fL (9.4-12.4); Monocytes # 0.4 K/mcL (0.0-1.3); Monocytes % 5.5 %; Neutrophils # 4.7 K/mcL (1.6-8.9); Platelet Count 311 K/mcL (140-400); Red Blood Count 4.82 M/mcL (3.82-4.97); Red Cell Distribution Width 13.1 % (11.5-14.5); White Blood Count 7.5 K/mcL (4.3-11.1)
[2019-04-08 21:43] LABS: Bilirubin,Urine Negative (Negative); Blood,Urine Negative (Negative); Clarity,Urine Clear (Clear); Color,Urine Yellow (Yellow); Glucose,Urine (UA) >=1000 mg/dL (Normal); Ketones,Urine Negative (Negative); Leukocyte Esterase,Urine Negative (Negative); Nitrite,Urine Negative (Negative); Protein,Urine Negative (Neg-Trace); Specific Gravity,Urine > 1.030 (1.010-1.025); Urobilinogen,Urine Normal (Normal)
[2019-04-08 21:49] LABS: Prothrombin Time 11.2 Seconds (9.4-12.1)
[2019-04-08 21:51] LABS: Activated Partial Thrombo Time 35.9 Seconds (26.0-36.0)
--- NOTE | 2019-04-08 22:00 | Emergency Department Note ---
Disposition Clinical Impression: Atrial fibrillation with RVR, Phlegmon, Elevated troponin, Facial cellulitis Disposition: Admitted As Inpatient Condition: Fair Time of Disposition: 23:26 General Adult HPI - General Chief complaint: ED Arrhythmia/Palpitations Stated complaint: irregular heartbeat Time Seen by Provider: 04/08/19 20:17 Source: patient, EMS Limitations: no limitations Nursing Notes Reviewed: Yes Vital Signs Reviewed: Yes - History of Present Illness Pain Scale: 10 - Related Data Home Medications Medication Instructions Recorded Confirmed Omeprazole [PriLOSEC] 40 mg PO DAILY 05/12/17 04/08/19 Albuterol Sulfate [Ventolin Hfa] 2 puff IH Q4H PRN 07/09/17 04/08/19 Insulin Glargine,Hum.rec.anlog 50 units SQ BID 11/18/17 04/08/19 [Basaglar Kwikpen U-100] Gabapentin [Neurontin] 300 mg PO HS 12/23/18 04/08/19 Metformin HCl [Glucophage] 1,000 mg PO BID 12/23/18 04/08/19 clonazePAM [Clonazepam] 0.5 mg PO HS 12/23/18 04/08/19 Sotalol [Betapace] 120 mg PO Q12H 02/09/19 04/08/19 Acetaminophen [Tylenol] 650 mg PO PRN PRN 02/11/19 04/08/19 Aspirin [Adult Aspirin Regimen] 81 mg PO DAILY 02/25/19 04/08/19 Clindamycin Palmitate HCl 75 mg PO Q8HR 04/08/19 04/08/19 Codeine Phosphate/Guaifenesin 10 - 100 mg PO Q4-6H PRN 04/08/19 04/08/19 Promethazine 25 mg/50 ml-Ns 25 mg PO Q8HR 04/08/19 04/08/19 Zanaflex 4 mg PO TID 04/08/19 04/08/19 Previous Rx's Medication Instructions Recorded Atorvastatin [Lipitor] 40 mg PO HS #30 tablet 12/28/18 Dabigatran [Pradaxa] 150 mg PO BID #60 capsule 01/06/19 Allergies Allergy/AdvReac Type Severity Reaction Status Date / Time No Known Allergies Allergy Verified 02/25/19 11:35 Past Medical History - Past Medical History Medical history: Reports: atrial fibrillation, COPD, CVA, diabetes, hyperlipidemia, hypertension, myocardial infarction, TIA, other Surgical history: Reports: cholecystectomy Psychiatric history: Reports: depression [employer] REP history: Reports: no PERSON[employer] REP history - Social History Smoking Status: Never smoker Smokeless Tobacco Status: No Alcohol use: Reports: occasionally Drug use: Reports: none Physical Exam - General Limitations: no limitations General appearance: alert, in no apparent distress Course Vital Signs Temperature 98.4 F 04/08/19 20:03 Pulse Rate 120 04/08/19 20:03 Respiratory Rate 12 04/08/19 20:03 Blood Pressure 101/48 04/08/19 20:03 O2 Sat by Pulse Oximetry 99 04/08/19 20:03 Temperature 98.4 F 04/08/19 20:03 Pulse Rate 110 04/09/19 00:10 Respiratory Rate 16 04/09/19 00:10 Blood Pressure 170/116 04/09/19 00:10 O2 Sat by Pulse Oximetry 98 04/09/19 00:10 Oxygen Delivery Oxygen Delivery Room Air Medical Decision Making - Medical Records Medical records reviewed: Yes I reviewed the patient's medical records. - Lab Data Lab results reviewed: Yes I reviewed the patient's lab results. Result diagrams: 04/08/19 21:05 04/08/19 21:05 Lab Results 04/08/19 04/08/19 04/08/19 Range/Units 21:05 21:05 21:05 WBC 7.5 (4.3-11.1) K/mcL RBC 4.82 (3.82-4.97) M/mcL Hgb 13.7 (11.5-15.4) g/dL Hct 40.9 (35.3-44.9) % MCV 84.9 (83.0-100.0) fL MCH 28.4 (28.0-33.3) pg MCHC 33.5 (31.6-35.5) g/dL RDW 13.1 (11.5-14.5) % Plt Count 311 (140-400) K/mcL MPV 11.1 (9.4-12.4) fL Immature Gran % 0.4 (0-4) % Seg Neutrophils % 63.0 % Lymphocytes % 29.6 % Monocytes % 5.5 % Eosinophils % 1.1 % Basophils % 0.4 % Neutrophils # 4.7 (1.6-8.9) K/mcL Lymphocytes # 2.2 (0.6-4.6) K/mcL Monocytes # 0.4 (0.0-1.3) K/mcL Eosinophils # 0.1 (0.0-0.6) K/mcL Basophils # 0.0 (0.0-0.2) K/mcL PT 11.2 (9.4-12.1) Seconds INR 1.0 APTT 35.9 (26.0-36.0) Seconds VBG pH (7.32-7.42) pH Units VBG pCO2 (41-51) mmHg VBG pO2 (25-50) mmHg VBG HCO3 (21-27) mEq/L VBG Total CO2 mEq/L VBG O2 Saturation % VBG Base Excess mEq/L VBG Hematocrit (35.3-44.9) % VBG Lactic Acid (0.5-2.2) mmol/L Venous Sodium (135-145) mEq/L Sodium 137 (136-145) mEq/L Venous Potassium (3.5-5.5) mEq/L Potassium 3.6 (3.5-5.1) mEq/L Venous Chloride (98-107) mEq/L Chloride 99 (98-107) mEq/L Carbon Dioxide 24 (23-29) mEq/L BUN 9 (6-20) mg/dL Creatinine 0.70 (0.60-1.20) mg/dL Est GFR ( Amer) > 60 (> 60) Est GFR (Non-Af Amer) > 60 (> 60) BUN/Creatinine Ratio 13 (6-26) Glucose 482 H (70-105) mg/dL Whole Bld Glucose (65-95) mg/dl Calculated Osmolality 304 H (280-300) Calcium 9.6 (8.6-10.3) mg/dL Venous Ioniz Calcium (1.15-1.35) mmol/L Magnesium 1.7 (1.6-2.6) mg/dL Troponin I 0.04 H* (< 0.04) ng/mL Beta-Hydroxybutyric Acd (0.02-0.27) mmol/L TSH 6.069 H (0.340-5.600) mcIU/mL Urine Color (Yellow) Urine Clarity (Clear) Urine pH (5.0-8.0) pH Units Ur Specific [place] (1.010-1.025) Urine Protein (Neg-Trace) mg/dL Urine Glucose (UA) (Normal) mg/dL Urine Ketones (Negative) mg/dL Urine Blood (Negative) Urine Nitrite (Negative) Urine Bilirubin (Negative) Urine Urobilinogen (Normal) mg/dL Ur Leukocyte Esterase (Negative) Person Notif of Crit 04/08/19 04/08/19 04/08/19 Range/Units 21:05 21:21 21:30 WBC (4.3-11.1) K/mcL RBC (3.82-4.97) M/mcL Hgb (11.5-15.4) g/dL Hct (35.3-44.9) % MCV (83.0-100.0) fL MCH (28.0-33.3) pg MCHC (31.6-35.5) g/dL RDW (11.5-14.5) % Plt Count (140-400) K/mcL MPV (9.4-12.4) fL Immature Gran % (0-4) % Seg Neutrophils % % Lymphocytes % % Monocytes % % Eosinophils % % Basophils % % Neutrophils # (1.6-8.9) K/mcL Lymphocytes # (0.6-4.6) K/mcL Monocytes # (0.0-1.3) K/mcL Eosinophils # (0.0-0.6) K/mcL Basophils # (0.0-0.2) K/mcL PT (9.4-12.1) Seconds INR APTT (26.0-36.0) Seconds VBG pH 7.43 H (7.32-7.42) pH Units VBG pCO2 38 L (41-51) mmHg VBG pO2 133 H (25-50) mmHg VBG HCO3 25 (21-27) mEq/L VBG Total CO2 26 mEq/L VBG O2 Saturation 99 % VBG Base Excess 1 mEq/L VBG Hematocrit 43.0 (35.3-44.9) % VBG Lactic Acid 4.0 H* (0.5-2.2) mmol/L Venous Sodium 140 (135-145) mEq/L Sodium (136-145) mEq/L Venous Potassium 3.6 (3.5-5.5) mEq/L Potassium (3.5-5.1) mEq/L Venous Chloride 104 (98-107) mEq/L Chloride (98-107) mEq/L Carbon Dioxide (23-29) mEq/L BUN (6-20) mg/dL Creatinine (0.60-1.20) mg/dL Est GFR ( Amer) (> 60) Est GFR (Non-Af Amer) (> 60) BUN/Creatinine Ratio (6-26) Glucose (70-105) mg/dL Whole Bld Glucose 470 H (65-95) mg/dl Calculated Osmolality (280-300) Calcium (8.6-10.3) mg/dL Venous Ioniz Calcium 1.13 L (1.15-1.35) mmol/L Magnesium (1.6-2.6) mg/dL Troponin I (< 0.04) ng/mL Beta-Hydroxybutyric Acd 0.12 (0.02-0.27) mmol/L TSH (0.340-5.600) mcIU/mL Urine Color Yellow (Yellow) Urine Clarity Clear (Clear) Urine pH 6.0 (5.0-8.0) pH Units Ur Specific [place] > 1.030 H (1.010-1.025) Urine Protein Negative (Neg-Trace) mg/dL Urine Glucose (UA) >=1000 H (Normal) mg/dL Urine Ketones Negative (Negative) mg/dL Urine Blood Negative (Negative) Urine Nitrite Negative (Negative) Urine Bilirubin Negative (Negative) Urine Urobilinogen Normal (Normal) mg/dL Ur Leukocyte Esterase Negative (Negative) Person Notif of [facility] - Radiology Data Radiology results reviewed: Yes I reviewed the patient's radiology results. Chest X-Ray 04/08/19 21:12 IMPRESSION: No acute process. D/ / Virgil Segura MD / Virgil Segura MD Interpreting Provider: Virgil Segura MD Face CT 04/08/19 22:52 IMPRESSION: Abnormal soft tissue swelling between the inferior nasal tissues in the maxilla. There are areas of heterogeneous density within this soft tissue thickening. This is likely due to cellulitis and developing phlegmonous tissue. There is no discrete abscess at this time D/ / Jordon Hoover / Jordon Hoover Interpreting Provider: Jordon Hoover - EKG Data EKG #1 EKG attestation: Yes I reviewed and interpreted this EKG. EKG results narrative: EKG shows atrial fibrillation with RVR. Heart rate 144. No significant ST segment elevation or depression. Critical Care Time Critical Care Time: Yes Total Critical Care Time: 45 Attestation: Critical care performed: Time is exclusive of separately billable procedures. Time includes: direct patient care, patient reassessment, coordination of patient care, interpretation of data (laboratory data, radiology data, and respiratory data), review of patient's medical records, medical consultation and documentation of patient care. Procedures included in critical care time: Procedures excluded from critical care time: Attestation Statement - Attestation Attestation: I, Juice Meyers MD, personally evaluated this patient and discussed their management with the resident physician. I reviewed the resident's note and agree with the documented findings, medical decision making, and plan of care. I reviewed the residents documentation and agree with the residents assessment and plan of care. I have personally had face to face time with the patient. I personally supervised and was present for the nguyen/critical portions of the following procedures completed by the resident: EKG interpretation. 53-year-old female presents to the emergency department with a complaint of atrial fibrillation. Patient does have a prior history of atrial fibrillation and is on Pradaxa. She states symptoms started about 4 PM with her heart racing and fluttering. Some shortness of breath. No significant chest pain. Syncope. Patient also complains of pain and swelling of the left upper lip and left side of her face which started about 4 days ago and is getting worse. No definite fever. On examination patient is a well-developed well-nourished female in no acute distress. She is alert and oriented 3. There is no cyanosis or diaphoresis. Patient has swelling and induration of the left upper lip and left cheek area with some palpable fluctuance to the inner aspect of the lip. It is not agustin thematous or hot to touch. Neck is supple with no lymphadenopathy. She does have some tenderness over the left Juice and submandibular region but no palpable swelling. Chest is nontender to palpation. Breath sounds are clear and equal bilaterally. Heart is irregularly irregular with a moderate tachycardia. Abdomen is soft and nontender with present bowel sounds. EKG shows atrial fibrillation with RVR. Heart rate 144. No significant ST segment elevation or depression. Chest x-ray negative. CT the facial bones showed some facial cellulitis and developing phlegmon but no drainable abscess. Labs reviewed. Lactic acid 4.0. Troponin 0.04. Patient was placed on Cardizem infusion after a bolus. Blood cultures obtained and IV antibiotics initiated. The hospitalist, Dr. Singleton, was consulted and accepted admission of the patient.
[2019-04-08 22:03] LABS: BUN/Creatinine Ratio 13 (6-26); Blood Urea Nitrogen 9 mg/dL (6-20); Calcium 9.6 mg/dL (8.6-10.3); Carbon Dioxide 24 mEq/L (23-29); Chloride 99 mEq/L (98-107); Glucose 482 mg/dL (70-105); Magnesium 1.7 mg/dL (1.6-2.6); Osmolality,Calculated 304 (280-300); Potassium 3.6 mEq/L (3.5-5.1); Sodium 137 mEq/L (136-145); Troponin I 0.04 ng/mL (< 0.04); eGFR For African Americans > 60 (> 60); eGFR For Non-African Americans > 60 (> 60)
[2019-04-08 22:06] LABS: Thyroid Stimulating Hormone 6.069 mcIU/mL (0.340-5.600)
[2019-04-08] MEDS ORDERED: Clindamycin 600 MG/50 ML 600 MG/50 ML IV.SOLN IVPB ONE (23:25)
[2019-04-08] MEDS ORDERED: Insulin Human Regular 10 UNIT in 0.9 % Sodium Chloride 10 ML IV ONE (23:41)
[2019-04-09] MEDS ORDERED: *HR* Metoprolol 5 MG/5 ML VIAL IVP ONE (00:43)
[2019-04-09] MEDS ORDERED: Acetaminophen 325 MG TABLET PO PRN (00:43)
[2019-04-09] MEDS ORDERED: Dextrose Gel 15 GM/37.5 ML TUBE PO PRN ×2 (00:45)
[2019-04-09] MEDS ORDERED: *HR* Dextrose 50 % in Water (Syg) 50 ML SYRINGE IVP PRN (00:45)
[2019-04-09] MEDS ORDERED: Ketorolac 30 MG/ML VIAL IVP PRN (01:29)
[2019-04-09] MEDS ORDERED: traMADol 50 MG TABLET PO PRN (01:29)
[2019-04-09] MEDS: clonazePAM 0.5 MG TABLET PO SCH ×2 (01:35→22:03)
[2019-04-09] MEDS: Gabapentin 300 MG CAPSULE PO SCH ×2 (01:36→22:02)
--- NOTE | 2019-04-09 01:40 | Internal Med History&Physical ---
Date of Encounter: 04/09/19 Time of Encounter: 01:40 Internal Medicine - H&P: HPI Chief complaint: palpitations Admitted From: Home Plans for Post Hospital Care: Home History of present illness: Christie Jacome is a 53-year-old woman with multiple comorbidities including hypertension, diabetes, COPD, coronary artery disease and atrial fibrillation who presents to the emergency room today with a complaint of palpitations that started yesterday morning. She says she frequently knows when she goes into A. fib and says that she felt her heart racing in addition to generalized malaise and fatigue. She denied having chest pain per se but reported some dyspnea. She reports adherence to her medications. Arrival to the emergency room shows seen to be in A. fib with RVR with a rate up to the 170s and was subsequently placed on a diltiazem drip after receiving an initial load. Her lab work was remarkable for hyperglycemia and a troponin elevation of 0.04. EKG corroborated atrial fibrillation with RVR. Of note she was seen to have swelling around her left upper lip area which she reported was secondary to a fall she suffered 4 days ago where she hit a coffee table with her face and has caused her significant pain and discomfort. She was seen by her PCP yesterday for this complaint who started her on oral clindamycin and referred her to ENT to be seen in the next couple of days. A CT scan was done which showed abnormal soft tissue swelling between the inferior nasal tissues in the maxilla and heterogeneous density soft tissue thickening from cellulitis and developing phlegmonous changes but no discrete abscess seen. She is admitted for further care. Vitals: Reviewed General: Obese white woman lying in bed in no acute distress. Skin: Warm and flushed. HEENT: Moist mucous membranes. No conjunctivae pallor. Mild swelling noted around the left upper lip area with a mass formation in the interior mucosa adjacent to her superior gum line. She is edentulous. Neck: No lymphadenopathy. No JVD. No carotid bruits. No palpable thyroid. Chest: Normal thoracic expansion. Normal breath sounds. Clear to auscultation. Heart: Tachycardic and irregularly irregular. Abdomen: Non-distended, soft and non-tender to palpation. No peritoneal reaction. Extremities: No clubbing, cyanosis or edema. No calf tenderness. Normal distal pulses. Neurological: Awake, alert and oriented to person, place and time. No focal deficits. Psych: Affect appropriate. Assessment/Plan 1. A. fib with RVR: He will continue diltiazem drip and titrate to achieve a heart rate less than 100 at which point she can be transitioned to oral medications. Her daily dose of sotalol should be continued and anticoagulation resumed. 2. Troponin elevation: Likely stems from the tachyarrhythmia rather than acute ischemia. We will monitor. 3. Lip swelling: No discrete abscess formation, drainable collection and systemic signs of infection present. Ice packs will be applied and intravenous clindamycin started given the risk of oral microbial andrea contaminating the lesion and causing the ongoing swelling which could develop into an abscess. 4. Diabetes: Poorly controlled glycemic value is noted. Insulin therapy will be started. Past Med Surg Social Fam HX - Past Medical History Medical history: atrial fibrillation, COPD, CVA, diabetes, hyperlipidemia, hypertension, myocardial infarction, TIA, other Additional medical history: c-diff, cervialgia, Loop recorder, cervico-occipital neurolgia-cerebral hemorrhage,. anemia, spasmadic torticollis. ANTOINETTE. respiratory failure. dydfunctional uterine bleed, obesity, conversion disorder, left sided weakness from previous CVA Psychiatric history: depression - Past Surgical History Surgical History: cholecystectomy Additional surgical history: loop recorder and cardiac ablasion - Social History Smoking Status: Never smoker Smokeless Tobacco Status: No Alcohol use: occasionally Drug use: none - Family History Mother Living Status: Hx Family Cardiac Disorders: Yes Hx Family Respiratory Disorders: Yes (copd) Hx Family Cancer: Yes (lung cancer) Hx Family Endocrine Disorder: Yes (DM type II) Father Adopted: No Family Member Ethnicity: Non- Living Status: Hx Family Cardiac Disorders: Yes Hx Family Respiratory Disorders: Yes Hx Family Cancer: Yes (LUNG) Hx Family GI Disorders: No Hx Family Endocrine Disorder: Yes Hx Family Neuromuscular Disorders: No Hx Family Neurologic Disorders: No Hx Family HEENT Disorders: No Hx Family Autoimmune Disorders: No Internal Medicine - H&P: Meds Omeprazole [PriLOSEC] 40 mg PO DAILY 05/12/17 [History] Albuterol Sulfate [Ventolin Hfa] 2 puff IH Q4H PRN 07/09/17 [History] Insulin Glargine,Hum.rec.anlog [Basaglar Kwikpen U-100] 50 units SQ BID 11/18/17 [History] Gabapentin [Neurontin] 300 mg PO HS 12/23/18 [History] Metformin HCl [Glucophage] 1,000 mg PO BID 12/23/18 [History] clonazePAM [Clonazepam] 0.5 mg PO HS 12/23/18 [History] Atorvastatin [Lipitor] 40 mg PO HS #30 tablet 12/28/18 [Rx] Dabigatran [Pradaxa] 150 mg PO BID #60 capsule 01/06/19 [Rx] Sotalol [Betapace] 120 mg PO Q12H 02/09/19 [History] Acetaminophen [Tylenol] 650 mg PO PRN PRN 02/11/19 [History] Aspirin [Adult Aspirin Regimen] 81 mg PO DAILY 02/25/19 [History] Clindamycin Palmitate HCl 75 mg PO Q8HR 04/08/19 [History] Codeine Phosphate/Guaifenesin 10 - 100 mg PO Q4-6H PRN 04/08/19 [History] Promethazine 25 mg/50 ml-Ns 25 mg PO Q8HR 04/08/19 [History] Zanaflex 4 mg PO TID 04/08/19 [History] Allergy/AdvReac Type Severity Reaction Status Date / Time No Known Allergies Allergy Verified 02/25/19 11:35 All Systems PM: A 10-system review of systems was performed and is negative for pertinent findings except as documented above in the HPI. - Constitutional Vitals: Temp Pulse Resp BP Pulse Ox 98.2 F 121 18 182/112 98 04/09/19 00:57 04/09/19 00:57 04/09/19 00:57 04/09/19 00:57 04/09/19 01:18 Exam: . Internal Med - H&P Results - Labs CBC & Chem 7: 04/08/19 21:05 04/08/19 21:05 Labs: Short CBC 04/08/19 Range/Units 21:05 WBC 7.5 (4.3-11.1) K/mcL Hgb 13.7 (11.5-15.4) g/dL Hct 40.9 (35.3-44.9) % Plt Count 311 (140-400) K/mcL Neutrophils # 4.7 (1.6-8.9) K/mcL BMP 04/08/19 21:05 Sodium 137 Potassium 3.6 Chloride 99 Carbon Dioxide 24 BUN 9 Creatinine 0.70 Glucose 482 H Calcium 9.6 Cardiac Enzymes 04/08/19 Range/Units 21:05 Troponin I 0.04 H* (< 0.04) ng/mL Urine 04/08/19 Range/Units 21:21 Urine Color Yellow (Yellow) Urine Clarity Clear (Clear) Urine pH 6.0 (5.0-8.0) pH Units Ur Specific [place] > 1.030 H (1.010-1.025) Urine Protein Negative (Neg-Trace) mg/dL Urine Glucose (UA) >=1000 H (Normal) mg/dL - ABG Interpretation ABG results: 04/08/19 21:30 VBG pH 7.43 H VBG pCO2 38 L VBG pO2 133 H VBG HCO3 25 VBG Total CO2 26 VBG O2 Saturation 99 VBG Base Excess 1 - Impressions ITS Impressions Chest X-Ray 04/08/19 21:12 IMPRESSION: No acute process. D/ / Virgil Segura MD / Virgil Segura MD Interpreting Provider: Virgil Segura MD Face CT 04/08/19 22:52 IMPRESSION: Abnormal soft tissue swelling between the inferior nasal tissues in the maxilla. There are areas of heterogeneous density within this soft tissue thickening. This is likely due to cellulitis and developing phlegmonous tissue. There is no discrete abscess at this time D/ / Jordon Hoover / Jordon Hoover Interpreting Provider: Jordon Hoover - Time Spent With Patient Total time spent is greater than 50% in coordination of care (as documented) at patient's floor/unit and/or counseling patient:
[2019-04-09 03:39] LABS: BUN/Creatinine Ratio 17 (6-26); Blood Urea Nitrogen 10 mg/dL (6-20); Calcium 8.6 mg/dL (8.6-10.3); Carbon Dioxide 21 mEq/L (23-29); Chloride 108 mEq/L (98-107); Glucose 269 mg/dL (70-105); Osmolality,Calculated 299 (280-300); Potassium 3.5 mEq/L (3.5-5.1); Sodium 140 mEq/L (136-145); Troponin I 0.04 ng/mL (< 0.04); eGFR For African Americans > 60 (> 60); eGFR For Non-African Americans > 60 (> 60)
[2019-04-09] MEDS: *HR* OxyCODONE Immed Rel 5 MG TABLET PO PRN ×3 (04:26→22:15)
[2019-04-09] MEDS: Clindamycin 600 MG/50 ML 600 MG/50 ML IV.SOLN IVPB SCH ×3 (08:02→23:37)
[2019-04-09] MEDS: Insulin LISPRO 300 UNITS/3 ML VIAL SQ SCH ×3 (08:02→17:09)
[2019-04-09] MEDS: Aspirin Enteric Coated 81 MG Tablet PO SCH (08:02)
[2019-04-09] MEDS: *HR* Dabigatran 150 MG CAPSULE PO SCH ×2 (08:02→22:02)
[2019-04-09] MEDS ORDERED: Insulin DETEMIR 100 UNIT/ML X5UNITS SQ SCH (09:00)
[2019-04-09] MEDS: Insulin DETEMIR 100 UNIT/ML X5UNITS SQ SCH ×2 (11:25→22:04)
--- NOTE | 2019-04-09 13:56 | Internal Med Progress Note ---
Hospitalist Progress Note - Encounter Date of Encounter: 04/09/19 Time of Encounter: 13:52 - Subjective Interval History: Patient's rate is controlled this morning off diltiazem drip. Since she has been compliant with sotalol but fill history does not support this. Face swelling improving. - Exam Vitals: Temp Pulse Resp BP Pulse Ox 98.3 F 66 18 181/82 98 04/09/19 11:20 04/09/19 11:20 04/09/19 11:20 04/09/19 11:20 04/09/19 11:20 Exam: General: Ill-appearing and in no acute distress HEENT: Left lip and maxillary swelling. Lymphatics: No mandibular or cervical lymphadenopathy Cardiovascular: RRR. No murmurs. No chest wall tenderness. Lungs: Clear to auscelltation bilaterally. Regular chest rise. Abdomen: Non-tender. No rebound or gaurding. Nl bowel sounds. Extremities: No edema. 2+ pulses radial and pedal pulses Skin: No rahses, abrasions, or contusions. Nl cap refill. Psych: Nl attention. A&Ox3 Neuro: cut off [place] II-XII intact. 5/5 strength. Sensation to light touch and pinprick intact. - Assessment and Plan (1) Atrial fibrillation with RVR Current Visit: Yes Status: Acute (2) Essential hypertension Current Visit: Yes Status: Acute (3) Facial cellulitis Current Visit: Yes Status: Acute (4) Phlegmon Current Visit: Yes Status: Acute (5) Diabetes mellitus, type II, insulin dependent Current Visit: No Status: Chronic Comments: was controlled yesterday- suspect higher today d/t stress and anxiety. will keep on current SS insulin and reheck gluc in am. DVT Prophylaxis: Pradaxa - Summary of Assessment and Plan Summary of Assessment and Plan: Atrial Fibrillation with RVR Patient with history of atrial fibrillation on sotalol presents with atrial fibrillation with RVR in the setting of questionable compliance with sotalol and recent fall resulting in injury to face that may or may not be infected. -Started on diltiazem drip on admission -Home sotalol dosing was restarted and rates rapidly improved -Says she has been compliant with sotalol but fill history does not support this. Noncompliance probably leading cause of uncontrolled atrial fibrillation -May also be uncontrolled in setting of acute injury/infection PLAN: - Continue home sotalol - Treat infection Facial Cellulitis Recent fall resulting in injury to face that may or may not be infected. No systemic signs of infection but CT face on admission with concerns for cellulitis and developing phlegmonous tissue w/o evidence of abscess. - Continue Clindamycin - can transition to oral tomorrow Essential Hypertension Says she is on lisinopril but this does not appear on recent med lists are fill history. Very hypertensive here. - Start losartan 25mg qd and will discharge patient with us Internal Medicine: Result - Labs CBC & Chem 7: 04/08/19 21:05 04/09/19 02:14 Labs: Short CBC 04/08/19 Range/Units 21:05 WBC 7.5 (4.3-11.1) K/mcL Hgb 13.7 (11.5-15.4) g/dL Hct 40.9 (35.3-44.9) % Plt Count 311 (140-400) K/mcL Neutrophils # 4.7 (1.6-8.9) K/mcL BMP 04/08/19 04/09/19 21:05 02:14 Sodium 137 140 Potassium 3.6 3.5 Chloride 99 108 H Carbon Dioxide 24 21 L BUN 9 10 Creatinine 0.70 0.58 L Glucose 482 H 269 H Calcium 9.6 8.6 Cardiac Enzymes 04/08/19 04/09/19 Range/Units 21:05 02:14 Troponin I 0.04 H* 0.04 H* (< 0.04) ng/mL Urine 04/08/19 Range/Units 21:21 Urine Color Yellow (Yellow) Urine Clarity Clear (Clear) Urine pH 6.0 (5.0-8.0) pH Units Ur Specific [place] > 1.030 H (1.010-1.025) Urine Protein Negative (Neg-Trace) mg/dL Urine Glucose (UA) >=1000 H (Normal) mg/dL - ABG Interpretation ABG results: PT/INR, D-dimer PT 11.2 Seconds (9.4-12.1) 04/08/19 21:05 - Impressions Impressions Chest X-Ray 04/08/19 21:12 IMPRESSION: No acute process. D/ / Virgil Segura MD / Virgil Segura MD Interpreting Provider: Virgil Segura MD Face CT 04/08/19 22:52 IMPRESSION: Abnormal soft tissue swelling between the inferior nasal tissues in the maxilla. There are areas of heterogeneous density within this soft tissue thickening. This is likely due to cellulitis and developing phlegmonous tissue. There is no discrete abscess at this time D/ / Jordon Hoover / Jordon Hoover Interpreting Provider: Jordon Hoover Consult Discharge Plan - Plan Referrals: Joanne Paez MD [Primary Care Provider] -
--- NOTE | 2019-04-09 15:50 | Electrocardiograph Report ---
[address] [address] Test Date: 2019-04-08 Pat Name: Christie Jacome Department: EXAM1 Room: [facility] Gender: F Purification Supervisor: : 1965 Requested By: Grace Stallings Order Number: [id number] Reading MD: Marco Antonio Brooks Measurements Intervals [place] Rate: 144 P: LA: QRS: 55 QRSD: 92 T: 72 QT: 330 QTc: 476 Interpretive Statements Sinus rhythm with PAT Diffuse ST changes Electronically Signed On 04-09-2019 15:48:35 EDT by Marco Antonio Brooks
[2019-04-09] MEDS ORDERED: Insulin LISPRO 300 UNITS/3 ML VIAL SQ SCH (21:00)
[2019-04-10 06:56] VITALS: BP 141/62
[2019-04-10] MEDS: *HR* OxyCODONE Immed Rel 5 MG TABLET PO PRN (08:00)
[2019-04-10] MEDS: *HR* Dabigatran 150 MG CAPSULE PO SCH (08:00)
[2019-04-10] MEDS: Aspirin Enteric Coated 81 MG Tablet PO SCH (08:00)
[2019-04-10] MEDS: Insulin DETEMIR 100 UNIT/ML X5UNITS SQ SCH (08:00)
[2019-04-10] MEDS: Clindamycin 600 MG/50 ML 600 MG/50 ML IV.SOLN IVPB SCH (08:00)
[2019-04-10] MEDS: Insulin LISPRO 300 UNITS/3 ML VIAL SQ SCH (08:01)
--- NOTE | 2019-04-10 08:46 | Discharge Summary ---
Orders not resulted at time of discharge: Pending orders 04/08/19 23:42 Culture,Blood [BC] Stat Date of Encounter: 04/10/19 Time of Encounter: 09:03 - Discharge Diagnosis (1) Atrial fibrillation with RVR Priority: Primary Status: Acute (2) Essential hypertension Priority: Secondary Status: Acute (3) Facial cellulitis Priority: Secondary Status: Acute (4) Phlegmon Priority: Secondary Status: Acute (5) Diabetes mellitus, type II, insulin dependent Priority: Secondary Status: Chronic Hospital course: Ms. Jacome is a 53 year old female with history of atrial fibrillation on sotalol and medical noncompliance presented with atrial fibrillation with RVR in the setting of questionable compliance with sotalol and recent fall resulting in injury to face that appears to have gotten infected. Afib with RVR likely 2/2 poor compliance with Sotalol. This was refilled for her and compliance with emphasized. Facial cellulitis imaged with CT and evidence of cellulitis with developing phlegmonous tissue but no abscess and patient didn't have any systemic signs/sx of infection. Was treated with IV clidamycin and transitioned to oral. Will follow-up with PCP. Patient also started on Losartan during hospital stay so will need f/u BMP in 1 week from discharge. - Time Spent with Patient Total time spent providing and/or coordinating discharge services: 45 minutes Time spent: Greater than 30 minutes - Discharge Medications Prescriptions: New Losartan Potassium 50 mg PO Q24H #30 tablet Oxycodone HCl [Oxaydo] 5 mg PO Q8HR 7 Days #10 tablet.orl Continued Omeprazole [PriLOSEC] 40 mg PO BID Albuterol Sulfate [Ventolin Hfa] 2 puff IH Q4H PRN PRN Reason: Shortness Of Breath Insulin Glargine,Hum.rec.anlog [Basaglar Kwikpen U-100] 50 units SQ BID clonazePAM [Clonazepam] 0.5 mg PO HS Gabapentin [Neurontin] 300 mg PO HS Metformin HCl [Glucophage] 1,000 mg PO BID Atorvastatin [Lipitor] 40 mg PO HS #30 tablet Dabigatran [Pradaxa] 150 mg PO BID #60 capsule Acetaminophen [Tylenol] 650 mg PO PRN PRN PRN Reason: Pain Aspirin [Adult Aspirin Regimen] 81 mg PO DAILY Guaifenesin/Codeine Phosphate [Guaifenesin-Codeine Syrup] 5 ml PO Q6H PRN PRN Reason: Pain Sotalol [Betapace] 120 mg PO Q12H #60 tab Discontinued Clindamycin Palmitate HCl [Cleocin Palmitate] 75 mg PO Q8H Home Medications: Omeprazole [PriLOSEC] 40 mg PO BID 05/12/17 [History] Albuterol Sulfate [Ventolin Hfa] 2 puff IH Q4H PRN 07/09/17 [History] Insulin Glargine,Hum.rec.anlog [Basaglar Kwikpen U-100] 50 units SQ BID 11/18/17 [History] Gabapentin [Neurontin] 300 mg PO HS 12/23/18 [History] Metformin HCl [Glucophage] 1,000 mg PO BID 12/23/18 [History] clonazePAM [Clonazepam] 0.5 mg PO HS 12/23/18 [History] Atorvastatin [Lipitor] 40 mg PO HS #30 tablet 12/28/18 [Rx] Dabigatran [Pradaxa] 150 mg PO BID #60 capsule 01/06/19 [Rx] Acetaminophen [Tylenol] 650 mg PO PRN PRN 02/11/19 [History] Aspirin [Adult Aspirin Regimen] 81 mg PO DAILY 02/25/19 [History] Guaifenesin/Codeine Phosphate [Guaifenesin-Codeine Syrup] 5 ml PO Q6H PRN 04/08/19 [History] Losartan Potassium 50 mg PO Q24H #30 tablet 04/10/19 [Rx] Oxycodone HCl [Oxaydo] 5 mg PO Q8HR 7 Days #10 tablet.orl 04/10/19 [Rx] Sotalol [Betapace] 120 mg PO Q12H #60 tab 04/10/19 [Rx] Allergies/Adverse Reactions: Allergy/AdvReac Type Severity Reaction Status Date / Time No Known Allergies Allergy Verified 04/09/19 13:13 Date of admission: 04/08/19 23:52 Primary care physician: Joanne Paez - Constitutional Vitals: Temp Pulse Resp BP Pulse Ox 98.3 F 71 14 141/62 96 04/10/19 06:53 04/10/19 06:53 04/10/19 06:53 04/10/19 06:53 04/10/19 06:53 Exam: General: Ill-appearing and in no acute distress HEENT: Left lip and maxillary swelling improved Lymphatics: No mandibular or cervical lymphadenopathy Cardiovascular: RRR. No murmurs. No chest wall tenderness. Lungs: Clear to auscelltation bilaterally. Regular chest rise. Abdomen: Non-tender. No rebound or gaurding. Nl bowel sounds. Extremities: No edema. 2+ pulses radial and pedal pulses Skin: No rahses, abrasions, or contusions. Nl cap refill. Psych: Nl attention. A&Ox3 Neuro: voice pathologist II-XII intact. 5/5 strength. Sensation to light touch and pinprick intact. - Patient Status Disposition: Home, Self-Care Functional capacity at discharge: independent ambulation Overall status at discharge: patient is progressing back to baseline - Discharge Instructions Follow Up With: Joanne Paez MD [Primary Care Provider] - - Diet and Activity Diet: diabetic diet
== END 2019-04-10 10:12 | disposition home or self-care (01) ==
LOC: EMEROOARM 19:59 → 2NENU 19:59
PROVIDERS: ADMIT Internal Medicine; ATTEND Internal Medicine

== ENCOUNTER 2019-04-23 13:35 | Observation (INO) ==
[2019-04-23 15:03] LABS: BUN/Creatinine Ratio 22 (6-26); Blood Urea Nitrogen 14 mg/dL (6-20); Calcium 9.3 mg/dL (8.6-10.3); Carbon Dioxide 18 mEq/L (23-29); Chloride 98 mEq/L (98-107); Glucose 577 mg/dL (70-105); Magnesium 1.6 mg/dL (1.6-2.6); Osmolality,Calculated 307 (280-300); Potassium 3.5 mEq/L (3.5-5.1); Sodium 135 mEq/L (136-145); Troponin I < 0.03 ng/mL (< 0.04); eGFR For African Americans > 60 (> 60); eGFR For Non-African Americans > 60 (> 60)
[2019-04-23 15:09] LABS: Basophils % 0.4 %; Eosinophils # 0.1 K/mcL (0.0-0.6); Eosinophils % 1.2 %; Hematocrit 39.5 % (35.3-44.9); Hemoglobin 13.4 g/dL (11.5-15.4); Immature Granulocytes % 0.3 % (0-4); Lymphocytes # 2.5 K/mcL (0.6-4.6); Lymphocytes % 25.9 %; Mean Corpuscular HGB Conc 33.9 g/dL (31.6-35.5); Mean Corpuscular Hemoglobin 28.6 pg (28.0-33.3); Mean Corpuscular Volume 84.2 fL (83.0-100.0); Mean Platelet Volume 10.9 fL (9.4-12.4); Monocytes # 0.4 K/mcL (0.0-1.3); Monocytes % 4.3 %; Neutrophils # 6.6 K/mcL (1.6-8.9); Platelet Count 285 K/mcL (140-400); Red Blood Count 4.69 M/mcL (3.82-4.97); Red Cell Distribution Width 13.3 % (11.5-14.5); Segmented Neutrophils % 67.9 %; White Blood Count 9.7 K/mcL (4.3-11.1)
[2019-04-23] MEDS ORDERED: 0.9 % Sodium Chloride 1,000 ML IVC STA (15:11)
[2019-04-23 15:19] LABS: Prothrombin Time 11.2 Seconds (9.4-12.1)
[2019-04-23 15:22] LABS: Activated Partial Thrombo Time 40.3 Seconds (26.0-36.0)
[2019-04-23 15:37] LABS: VBG HCO3 22 mEq/L (21-27); VBG PCO2 32 mmHg (41-51); VBG PH 7.43 pH Units (7.32-7.42); VBG PO2 186 mmHg (25-50)
[2019-04-23] MEDS ORDERED: Insulin Regular, Human 100 UNIT/ML SQ ONE (16:00)
[2019-04-23] MEDS ORDERED: Acetaminophen 325 MG TABLET PO PRN (16:47)
[2019-04-23] MEDS ORDERED: tiZANidine 4 MG TABLET PO PRN (16:47)
[2019-04-23] MEDS ORDERED: Ondansetron 4 MG/2 ML VIAL IVP PRN (16:47)
[2019-04-23] MEDS ORDERED: Naloxone 0.4 MG/ML INJ IVP PRN (16:47)
[2019-04-23] MEDS ORDERED: *HR* Dextrose 50 % in Water (Syg) 50 ML SYRINGE IVP PRN (16:49)
[2019-04-23] MEDS ORDERED: D5% in Water 1,000 ML IVC PRN (16:49)
[2019-04-23] MEDS ORDERED: Dextrose Gel 15 GM/37.5 ML TUBE PO PRN ×2 (16:49)
[2019-04-23] MEDS ORDERED: Insulin LISPRO 300 UNITS/3 ML VIAL SQ ONE (17:47)
[2019-04-23] MEDS: Gabapentin 300 MG CAPSULE PO SCH (20:56)
[2019-04-23] MEDS: *HR* Dabigatran 150 MG CAPSULE PO SCH (20:56)
[2019-04-23] MEDS ORDERED: Insulin LISPRO 300 UNITS/3 ML VIAL SQ SCH (21:00)
[2019-04-23] MEDS ORDERED: clonazePAM 0.5 MG TABLET PO SCH (21:00)
[2019-04-23] MEDS ORDERED: Insulin DETEMIR 100 UNIT/ML X5UNITS SQ SCH (21:00)
[2019-04-24 04:55] LABS: Mean Corpuscular HGB Conc 32.4 g/dL (31.6-35.5); Mean Corpuscular Hemoglobin 28.4 pg (28.0-33.3); Mean Corpuscular Volume 87.5 fL (83.0-100.0); Mean Platelet Volume 10.8 fL (9.4-12.4); Platelet Count 220 K/mcL (140-400); Red Blood Count 4.23 M/mcL (3.82-4.97); Red Cell Distribution Width 13.6 % (11.5-14.5); White Blood Count 5.8 K/mcL (4.3-11.1)
[2019-04-24 05:14] LABS: BUN/Creatinine Ratio 19 (6-26); Blood Urea Nitrogen 14 mg/dL (6-20); Calcium 8.3 mg/dL (8.6-10.3); Carbon Dioxide 19 mEq/L (23-29); Chloride 105 mEq/L (98-107); Glucose 424 mg/dL (70-105); Magnesium 1.5 mg/dL (1.6-2.6); Osmolality,Calculated 303 (280-300); Potassium 3.3 mEq/L (3.5-5.1); Sodium 137 mEq/L (136-145); eGFR For African Americans > 60 (> 60); eGFR For Non-African Americans > 60 (> 60)
[2019-04-24] MEDS ORDERED: Insulin DETEMIR 100 UNIT/ML X5UNITS SQ ONE (05:56)
[2019-04-24] MEDS ORDERED: Insulin Human Regular 10 UNIT in 0.9 % Sodium Chloride 10 ML IV ONE (05:56)
[2019-04-24 06:38] LABS: Estimated Average Glucose 349 mg/dl
[2019-04-24 08:00] VITALS: BP 124/70
[2019-04-24] MEDS ORDERED: Potassium Chloride Elixir 20 MEQ/15 ML UDC PO SCH (08:30)
[2019-04-24] MEDS ORDERED: Aspirin Enteric Coated 81 MG Tablet PO SCH (09:00)
[2019-04-24] MEDS ORDERED: Insulin DETEMIR 100 UNIT/ML X5UNITS SQ SCH (09:00)
[2019-04-24] MEDS: *HR* Dabigatran 150 MG CAPSULE PO SCH (09:45)
[2019-04-24] MEDS: Gabapentin 300 MG CAPSULE PO SCH (09:45)
[2019-04-24] MEDS: Insulin LISPRO 300 UNITS/3 ML VIAL SQ SCH ×2 (09:46→11:06)
== END 2019-04-24 11:26 | disposition home or self-care (01) ==
LOC: EMEROOARM 13:35 → 2ANU 13:35 → SUATTDRO 16:39 → 2ANU 17:25
PROVIDERS: ADMIT Internal Medicine; ATTEND Internal Medicine

== ENCOUNTER 2019-05-02 14:47 | Observation (INO) ==
[2019-05-02 15:58] LABS: Basophils % 0.5 %; Eosinophils # 0.1 K/mcL (0.0-0.6); Hematocrit 36.7 % (35.3-44.9); Hemoglobin 12.1 g/dL (11.5-15.4); Immature Granulocytes % 0.5 % (0-4); Lymphocytes # 1.5 K/mcL (0.6-4.6); Lymphocytes % 22.4 %; Mean Corpuscular Hemoglobin 28.5 pg (28.0-33.3); Mean Corpuscular Volume 86.6 fL (83.0-100.0); Mean Platelet Volume 11.1 fL (9.4-12.4); Monocytes # 0.4 K/mcL (0.0-1.3); Monocytes % 5.7 %; Neutrophils # 4.5 K/mcL (1.6-8.9); Nucleated Red Blood Cells 0.3 /100 WBC (0); Platelet Count 241 K/mcL (140-400); Red Blood Count 4.24 M/mcL (3.82-4.97); Segmented Neutrophils % 68.9 %; White Blood Count 6.5 K/mcL (4.3-11.1)
[2019-05-02 16:18] LABS: INR 0.9; Prothrombin Time 10.5 Seconds (9.4-12.1)
[2019-05-02 16:22] LABS: Activated Partial Thrombo Time 16.6 Seconds (26.0-36.0)
[2019-05-02] MEDS ORDERED: Acetaminophen 325 MG TABLET PO PRN (16:36)
[2019-05-02] MEDS ORDERED: Naloxone 0.4 MG/ML INJ IVP PRN (16:36)
[2019-05-02] MEDS ORDERED: Lidocaine -MPF 1% 5 ML AMPUL INFILT ONE (16:51)
[2019-05-02 17:14] LABS: Amphetamine Screen,Urine Negative ng/mL (Cutoff=1000); Barbiturate Screen,Urine Negative ng/mL (Cutoff=200); Benzodiazepines Screen,Urine Negative ng/mL (Cutoff=200); Cannabinoid Screen,Urine Negative ng/mL (Cutoff = 50); Cocaine Screen,Urine Negative ng/mL (Cutoff= 300); Opiate Screen,Urine Negative ng/mL (Cutoff=300); Phencyclidine Screen,Urine Negative ng/mL (Cutoff=25)
[2019-05-02 17:46] LABS: BUN/Creatinine Ratio 23 (6-26); Blood Urea Nitrogen 11 mg/dL (6-20); Calcium 9.3 mg/dL (8.6-10.3); Carbon Dioxide 24 mEq/L (23-29); Chloride 106 mEq/L (98-107); Glucose 183 mg/dL (70-105); Magnesium 1.6 mg/dL (1.6-2.6); Osmolality,Calculated 298 (280-300); Potassium 3.2 mEq/L (3.5-5.1); Sodium 142 mEq/L (136-145); eGFR For African Americans > 60 (> 60); eGFR For Non-African Americans > 60 (> 60)
[2019-05-02 17:48] LABS: Thyroid Stimulating Hormone 3.715 mcIU/mL (0.340-5.600)
[2019-05-02] MEDS ORDERED: D5% in Water 1,000 ML IVC PRN (17:51)
[2019-05-02] MEDS ORDERED: Dextrose Gel 15 GM/37.5 ML TUBE PO PRN ×2 (17:51)
[2019-05-02] MEDS ORDERED: *HR* Dextrose 50 % in Water (Syg) 50 ML SYRINGE IVP PRN (17:51)
[2019-05-02] MEDS ORDERED: Insulin LISPRO 300 UNITS/3 ML VIAL SQ SCH (21:00)
[2019-05-03 00:35] VITALS: BP 164/75
[2019-05-03] MEDS ORDERED: Insulin LISPRO 300 UNITS/3 ML VIAL SQ SCH (07:30)
== END 2019-05-03 01:15 | disposition left against medical advice (07) | DRG 201 ==
LOC: EMEROOARM 14:47 → INTOOBSV 17:44 → 2NENU 17:44
PROVIDERS: ADMIT Internal Medicine; ATTEND Internal Medicine

== ENCOUNTER 2019-06-15 17:05 | Observation (INO) ==
[2019-06-15 18:34] LABS: Basophils # 0.1 K/mcL (0.0-0.2); Basophils % 0.7 %; Eosinophils # 0.1 K/mcL (0.0-0.6); Hematocrit 39.4 % (35.3-44.9); Hemoglobin 13.3 g/dL (11.5-15.4); Immature Granulocytes % 0.3 % (0-4); Lymphocytes # 1.7 K/mcL (0.6-4.6); Lymphocytes % 24.4 %; Mean Corpuscular HGB Conc 33.8 g/dL (31.6-35.5); Mean Corpuscular Hemoglobin 27.8 pg (28.0-33.3); Mean Corpuscular Volume 82.4 fL (83.0-100.0); Mean Platelet Volume 10.6 fL (9.4-12.4); Monocytes # 0.3 K/mcL (0.0-1.3); Neutrophils # 4.9 K/mcL (1.6-8.9); Platelet Count 272 K/mcL (140-400); Red Blood Count 4.78 M/mcL (3.82-4.97); Red Cell Distribution Width 13.2 % (11.5-14.5); Segmented Neutrophils % 69.6 %
[2019-06-15 18:41] LABS: INR 1.1
[2019-06-15 18:44] LABS: Activated Partial Thrombo Time 42.4 Seconds (26.0-36.0)
[2019-06-15 19:04] LABS: Alanine Aminotransferase 13 Units/L (7-52); Albumin 4.2 g/dL (3.5-5.7); Albumin/Globulin Ratio 1.5 (1.1-2.2); Alkaline Phosphatase 104 Units/L (34-104); Aspartate Amino Transferase 16 Units/L (13-39); BUN/Creatinine Ratio 22 (6-26); Bilirubin,Total 0.7 mg/dL (0.3-1.0); Blood Urea Nitrogen 13 mg/dL (6-20); Calcium 9.5 mg/dL (8.6-10.3); Carbon Dioxide 23 mEq/L (23-29); Chloride 104 mEq/L (98-107); Globulin 2.8 g/dL (2.4-3.5); Glucose 217 mg/dL (70-105); Osmolality,Calculated 301 (280-300); Potassium 3.3 mEq/L (3.5-5.1); Sodium 142 mEq/L (136-145); Troponin I < 0.03 ng/mL (< 0.04); eGFR For African Americans > 60 (> 60); eGFR For Non-African Americans > 60 (> 60)
[2019-06-15] MEDS ORDERED: Isovue-370 500 ML BOTTLE IVP ONE (21:50)
[2019-06-15] MEDS ORDERED: 0.9 % Sodium Chloride 500 ML IVC SCH (22:00)
[2019-06-15] MEDS ORDERED: Dextrose Gel 15 GM/37.5 ML TUBE PO PRN ×2 (22:27)
[2019-06-15] MEDS ORDERED: Naloxone 0.4 MG/ML INJ IVP PRN (22:27)
[2019-06-15] MEDS ORDERED: *HR* Dextrose 50 % in Water (Syg) 50 ML SYRINGE IVP PRN (22:27)
[2019-06-15] MEDS ORDERED: D5% in Water 1,000 ML IVC PRN (22:27)
[2019-06-15] MEDS ORDERED: Ringers Solution, Lactated 1,000 ML IVC SCH (22:30)
[2019-06-15] MEDS ORDERED: Potassium Chloride Elixir 20 MEQ/15 ML UDC PO ONE (22:30)
[2019-06-15 23:13] LABS: Bilirubin,Urine Negative (Negative); Blood,Urine Negative (Negative); Clarity,Urine Clear (Clear); Color,Urine Yellow (Yellow); Glucose,Urine (UA) 100 mg/dL (Normal); Ketones,Urine Negative (Negative); Leukocyte Esterase,Urine Negative (Negative); Nitrite,Urine Negative (Negative); Protein,Urine Negative (Neg-Trace); Specific Gravity,Urine > 1.030 (1.010-1.025); Urobilinogen,Urine Normal (Normal)
[2019-06-15] MEDS ORDERED: Insulin LISPRO 300 UNITS/3 ML VIAL SQ SCH (23:15)
[2019-06-16] MEDS ORDERED: Aspirin Enteric Coated 81 MG Tablet PO ONE (00:13)
[2019-06-16] MEDS ORDERED: *HR* Dextrose 50 % in Water (Syg) 50 ML SYRINGE IVP PRN (00:21)
[2019-06-16] MEDS ORDERED: Dextrose Gel 15 GM/37.5 ML TUBE PO PRN ×2 (00:21)
[2019-06-16] MEDS ORDERED: D5% in Water 1,000 ML IVC PRN (00:21)
[2019-06-16] MEDS: Acetaminophen 325 MG TABLET PO PRN ×3 (00:34→20:33)
[2019-06-16 00:41] LABS: Basophils % 0.5 %; Eosinophils # 0.1 K/mcL (0.0-0.6); Eosinophils % 1.5 %; Hematocrit 40.9 % (35.3-44.9); Hemoglobin 13.1 g/dL (11.5-15.4); Immature Granulocytes % 0.2 % (0-4); Lymphocytes # 2.2 K/mcL (0.6-4.6); Lymphocytes % 33.4 %; Mean Corpuscular Hemoglobin 27.5 pg (28.0-33.3); Mean Corpuscular Volume 85.9 fL (83.0-100.0); Mean Platelet Volume 10.5 fL (9.4-12.4); Monocytes # 0.3 K/mcL (0.0-1.3); Platelet Count 249 K/mcL (140-400); Red Blood Count 4.76 M/mcL (3.82-4.97); Red Cell Distribution Width 13.2 % (11.5-14.5); Segmented Neutrophils % 59.4 %; White Blood Count 6.6 K/mcL (4.3-11.1)
[2019-06-16] MEDS: Insulin LISPRO 300 UNITS/3 ML VIAL SQ SCH ×5 (01:17→20:32)
[2019-06-16] MEDS: carvediloL 6.25 MG TABLET PO SCH ×3 (01:30→17:11)
[2019-06-16 02:08] LABS: BUN/Creatinine Ratio 19 (6-26); Blood Urea Nitrogen 11 mg/dL (6-20); Calcium 9.5 mg/dL (8.6-10.3); Carbon Dioxide 21 mEq/L (23-29); Chloride 105 mEq/L (98-107); Chol/HDL Ratio 5.2 (0-4.9); Cholesterol 236 mg/dL (< 200); Glucose 211 mg/dL (70-105); HDL Cholesterol 45 mg/dL (40-59); LDL Cholesterol,Calculated 160 mg/dL (0-99); Magnesium 1.7 mg/dL (1.6-2.6); Osmolality,Calculated 294 (280-300); Phosphorous 3.3 mg/dL (2.7-4.5); Potassium 4.2 mEq/L (3.5-5.1); Sodium 139 mEq/L (136-145); Triglycerides 156 mg/dL (< 150); eGFR For African Americans > 60 (> 60); eGFR For Non-African Americans > 60 (> 60)
[2019-06-16 04:31] LABS: Estimated Average Glucose 255 mg/dl
[2019-06-16] MEDS ORDERED: Insulin LISPRO 300 UNITS/3 ML VIAL SQ SCH (07:30)
[2019-06-16] MEDS: *HR* Dabigatran 150 MG CAPSULE PO SCH ×2 (08:08→20:32)
[2019-06-16] MEDS: Aspirin Enteric Coated 81 MG Tablet PO SCH (08:09)
[2019-06-16] MEDS: FLUoxetine 20 MG CAPSULE PO SCH (08:09)
[2019-06-16] MEDS: Gabapentin 300 MG CAPSULE PO SCH ×3 (08:09→20:33)
[2019-06-16] MEDS: Acetaminophen 325 MG TABLET PO SCH (08:09)
[2019-06-16] MEDS ORDERED: Insulin DETEMIR 100 UNIT/ML X5UNITS SQ SCH (09:00)
[2019-06-16] MEDS: clonazePAM 0.5 MG TABLET PO SCH (20:33)
[2019-06-16] MEDS: Insulin DETEMIR 100 UNIT/ML X5UNITS SQ SCH (20:34)
[2019-06-17] MEDS: Gabapentin 300 MG CAPSULE PO SCH ×3 (08:43→20:22)
[2019-06-17] MEDS: carvediloL 6.25 MG TABLET PO SCH ×2 (08:43→15:40)
[2019-06-17] MEDS: FLUoxetine 20 MG CAPSULE PO SCH (08:43)
[2019-06-17] MEDS: Insulin LISPRO 300 UNITS/3 ML VIAL SQ SCH ×4 (08:44→20:20)
[2019-06-17] MEDS: Aspirin Enteric Coated 81 MG Tablet PO SCH (08:44)
[2019-06-17] MEDS: Lisinopril 20 MG TABLET PO SCH (08:44)
[2019-06-17] MEDS: *HR* Dabigatran 150 MG CAPSULE PO SCH ×2 (08:44→20:22)
[2019-06-17] MEDS: Acetaminophen 325 MG TABLET PO SCH (08:44)
[2019-06-17] MEDS: Insulin DETEMIR 100 UNIT/ML X5UNITS SQ SCH ×2 (10:15→20:23)
[2019-06-17] MEDS: clonazePAM 0.5 MG TABLET PO SCH (20:22)
[2019-06-18 07:11] LABS: BUN/Creatinine Ratio 20 (6-26); Blood Urea Nitrogen 11 mg/dL (6-20); Calcium 8.9 mg/dL (8.6-10.3); Carbon Dioxide 24 mEq/L (23-29); Chloride 106 mEq/L (98-107); Glucose 213 mg/dL (70-105); Magnesium 1.7 mg/dL (1.6-2.6); Osmolality,Calculated 296 (280-300); Potassium 3.5 mEq/L (3.5-5.1); Sodium 140 mEq/L (136-145); eGFR For African Americans > 60 (> 60); eGFR For Non-African Americans > 60 (> 60)
[2019-06-18] MEDS: Insulin DETEMIR 100 UNIT/ML X5UNITS SQ SCH (08:29)
[2019-06-18] MEDS: FLUoxetine 20 MG CAPSULE PO SCH (08:30)
[2019-06-18] MEDS: Lisinopril 20 MG TABLET PO SCH (08:30)
[2019-06-18] MEDS: carvediloL 6.25 MG TABLET PO SCH (08:30)
[2019-06-18] MEDS: *HR* Dabigatran 150 MG CAPSULE PO SCH (08:30)
[2019-06-18] MEDS: Gabapentin 300 MG CAPSULE PO SCH ×2 (08:30→15:06)
[2019-06-18] MEDS: Insulin LISPRO 300 UNITS/3 ML VIAL SQ SCH ×2 (08:31→12:33)
[2019-06-18] MEDS: Acetaminophen 325 MG TABLET PO SCH (08:31)
[2019-06-18] MEDS: Aspirin Enteric Coated 81 MG Tablet PO SCH (08:31)
[2019-06-18] MEDS ORDERED: Lisinopril 20 MG TABLET PO ONE (10:15)
[2019-06-18 12:35] VITALS: BP 127/84
[2019-06-18] MEDS ORDERED: carvediloL 25 MG TABLET PO SCH (17:00)
[2019-06-18] MEDS ORDERED: Insulin DETEMIR 100 UNIT/ML X5UNITS SQ SCH (21:00)
[2019-06-19] MEDS ORDERED: Lisinopril 20 MG TABLET PO SCH (09:00)
== END 2019-06-18 15:33 | disposition home or self-care (01) ==
LOC: 3BNU 17:05 → EMEROOARM 17:05 → 3BNU 22:06
PROVIDERS: ADMIT Internal Medicine; ATTEND Internal Medicine

== ENCOUNTER 2019-11-28 21:20 | Observation (INO) ==
[2019-11-28 22:08] LABS: Basophils % 0.5 %; Eosinophils # 0.1 K/mcL (0.0-0.6); Hematocrit 43.6 % (35.3-44.9); Immature Granulocytes % 0.4 % (0-4); Lymphocytes # 2.3 K/mcL (0.6-4.6); Mean Corpuscular HGB Conc 32.1 g/dL (31.6-35.5); Mean Corpuscular Hemoglobin 27.9 pg (28.0-33.3); Mean Corpuscular Volume 86.9 fL (83.0-100.0); Mean Platelet Volume 10.7 fL (9.4-12.4); Monocytes # 0.3 K/mcL (0.0-1.3); Monocytes % 4.1 %; Neutrophils # 5.3 K/mcL (1.6-8.9); Platelet Count 304 K/mcL (140-400); Red Blood Count 5.02 M/mcL (3.82-4.97); Red Cell Distribution Width 12.9 % (11.5-14.5); White Blood Count 8.1 K/mcL (4.3-11.1)
[2019-11-28 22:15] LABS: Prothrombin Time 11.2 Seconds (9.4-12.1)
[2019-11-28 22:18] LABS: Bilirubin,Urine Negative (Negative); Blood,Urine Negative (Negative); Clarity,Urine Clear (Clear); Color,Urine Yellow (Yellow); Glucose,Urine (UA) >=1000 mg/dL (Normal); Ketones,Urine Negative (Negative); Leukocyte Esterase,Urine Small (Negative); Nitrite,Urine Negative (Negative); Protein,Urine Negative (Neg-Trace); Specific Gravity,Urine > 1.030 (1.010-1.025); Urobilinogen,Urine Normal (Normal)
[2019-11-28 22:18] LABS: Activated Partial Thrombo Time 42.2 Seconds (26.0-36.0)
[2019-11-28 22:21] LABS: Bacteria,Urine None Seen per hpf (None-Few); Hyaline Casts,Urine None Seen per lpf (None-Few); RBC,Urine 0-3 per hpf (0-3); Squamous Epithelial Cell,Urine Many per lpf (None-Few); WBC,Urine 15-30 per hpf (0-3)
[2019-11-28 22:32] LABS: BUN/Creatinine Ratio 17 (6-26); Blood Urea Nitrogen 11 mg/dL (6-20); Calcium 9.4 mg/dL (8.6-10.3); Carbon Dioxide 20 mEq/L (23-29); Chloride 100 mEq/L (98-107); Glucose 441 mg/dL (70-105); Osmolality,Calculated 300 (280-300); Potassium 3.4 mEq/L (3.5-5.1); Sodium 136 mEq/L (136-145); eGFR For African Americans > 60 (> 60); eGFR For Non-African Americans > 60 (> 60)
[2019-11-28 22:34] LABS: Troponin I < 0.03 ng/mL (< 0.04)
[2019-11-28] MEDS ORDERED: 0.9 % Sodium Chloride 1,000 ML IVC STA (22:45)
[2019-11-28] MEDS ORDERED: Insulin Human Regular 10 UNIT in 0.9 % Sodium Chloride 10 ML IV ONE (22:45)
[2019-11-28] MEDS ORDERED: Insulin LISPRO 300 UNITS/3 ML VIAL SQ ONE (23:06)
[2019-11-28 23:11] LABS: VBG HCO3 24 mEq/L (21-27); VBG PCO2 34 mmHg (41-51); VBG PH 7.46 pH Units (7.32-7.42); VBG PO2 75 mmHg (25-50)
[2019-11-29] MEDS ORDERED: Naloxone 0.4 MG/ML INJ IVP PRN (01:38)
[2019-11-29] MEDS ORDERED: *HR* Dextrose 50 % in Water (Syg) 50 ML SYRINGE IVP PRN (01:41)
[2019-11-29] MEDS ORDERED: D5% in Water 1,000 ML IVC PRN (01:41)
[2019-11-29] MEDS ORDERED: Dextrose Gel 15 GM/37.5 ML TUBE PO PRN ×2 (01:41)
[2019-11-29] MEDS ORDERED: Morphine Sulfate 2 MG/ML SYRINGE IVP PRN (01:45)
[2019-11-29] MEDS: Gabapentin 400 MG CAPSULE PO SCH ×4 (02:30→20:39)
[2019-11-29] MEDS: cefTRIAXone 1,000 MG in Water for inj. (sterile) 10 ML IVP SCH ×2 (02:30→08:17)
[2019-11-29] MEDS ORDERED: Ketorolac 15 MG/ML VIAL IVP ONE (06:03)
[2019-11-29 06:26] LABS: Hematocrit 37.6 % (35.3-44.9); Hemoglobin 12.6 g/dL (11.5-15.4); Mean Corpuscular HGB Conc 33.5 g/dL (31.6-35.5); Mean Corpuscular Hemoglobin 29.3 pg (28.0-33.3); Mean Corpuscular Volume 87.4 fL (83.0-100.0); Mean Platelet Volume 11.2 fL (9.4-12.4); Platelet Count 258 K/mcL (140-400); Red Cell Distribution Width 12.9 % (11.5-14.5); White Blood Count 6.6 K/mcL (4.3-11.1)
[2019-11-29 06:51] LABS: BUN/Creatinine Ratio 23 (6-26); Blood Urea Nitrogen 12 mg/dL (6-20); Calcium 8.6 mg/dL (8.6-10.3); Carbon Dioxide 21 mEq/L (23-29); Chloride 102 mEq/L (98-107); Glucose 416 mg/dL (70-105); Magnesium 1.5 mg/dL (1.6-2.6); Osmolality,Calculated 297 (280-300); Phosphorous 3.8 mg/dL (2.7-4.5); Potassium 3.8 mEq/L (3.5-5.1); Sodium 135 mEq/L (136-145); Troponin I < 0.03 ng/mL (< 0.04); eGFR For African Americans > 60 (> 60); eGFR For Non-African Americans > 60 (> 60)
[2019-11-29] MEDS: Aspirin Enteric Coated 81 MG Tablet PO SCH (08:15)
[2019-11-29] MEDS: *HR* Dabigatran 150 MG CAPSULE PO SCH ×2 (08:15→20:40)
[2019-11-29] MEDS: carvediloL 25 MG TABLET PO SCH ×2 (08:15→16:26)
[2019-11-29] MEDS: Insulin LISPRO 300 UNITS/3 ML VIAL SQ SCH ×3 (08:16→16:27)
[2019-11-29] MEDS: Insulin DETEMIR 100 UNIT/ML X5UNITS SQ SCH ×2 (08:18→20:46)
[2019-11-29] MEDS: *HR* OxyCODONE/APAP 5/325 TABLET PO PRN ×2 (13:08→21:47)
[2019-11-29] MEDS ORDERED: Ondansetron 4 MG/2 ML VIAL IVP ONE (15:23)
[2019-11-29] MEDS ORDERED: Ondansetron 4 MG/2 ML VIAL IVP PRN (15:29)
[2019-11-29] MEDS ORDERED: Insulin LISPRO 300 UNITS/3 ML VIAL SQ SCH (21:00)
[2019-11-30] MEDS ORDERED: *HR* LORazepam 2 MG/ML VIAL IVP ONE (01:11)
[2019-11-30] MEDS ORDERED: *HR* LORazepam 2 MG/ML VIAL IVP PRN (01:12)
[2019-11-30] MEDS ORDERED: Melatonin 3 MG TABLET PO ONE (01:27)
[2019-11-30 06:44] LABS: BUN/Creatinine Ratio 35 (6-26); Blood Urea Nitrogen 19 mg/dL (6-20); Calcium 8.7 mg/dL (8.6-10.3); Carbon Dioxide 21 mEq/L (23-29); Chloride 104 mEq/L (98-107); Glucose 313 mg/dL (70-105); Magnesium 2.1 mg/dL (1.6-2.6); Osmolality,Calculated 292 (280-300); Potassium 4.6 mEq/L (3.5-5.1); Sodium 134 mEq/L (136-145); eGFR For African Americans > 60 (> 60); eGFR For Non-African Americans > 60 (> 60)
[2019-11-30 07:16] LABS: Estimated Average Glucose 272 mg/dl
[2019-11-30] MEDS: Aspirin Enteric Coated 81 MG Tablet PO SCH (08:07)
[2019-11-30] MEDS: carvediloL 25 MG TABLET PO SCH (08:07)
[2019-11-30] MEDS: cefTRIAXone 1,000 MG in Water for inj. (sterile) 10 ML IVP SCH (08:07)
[2019-11-30] MEDS: *HR* Dabigatran 150 MG CAPSULE PO SCH (08:07)
[2019-11-30] MEDS: Gabapentin 400 MG CAPSULE PO SCH (08:07)
[2019-11-30] MEDS: Insulin DETEMIR 100 UNIT/ML X5UNITS SQ SCH (08:09)
[2019-11-30] MEDS: Insulin LISPRO 300 UNITS/3 ML VIAL SQ SCH (08:09)
[2019-11-30 11:16] VITALS: BP 126/77
== END 2019-11-30 11:58 | disposition home or self-care (01) ==
LOC: EMEROOARM 21:20 → 3BNU 21:20 → SUATTDRO 23:01 → 3BNU 23:31
PROVIDERS: ADMIT Internal Medicine; ATTEND Internal Medicine

== ENCOUNTER 2020-01-04 10:38 | Observation (INO) ==
[2020-01-04] MEDS ORDERED: Aspirin 81 MG TAB.CHEW PO ONE (11:30)
[2020-01-04 11:59] LABS: Bilirubin,Urine Negative (Negative); Blood,Urine Negative (Negative); Clarity,Urine Clear (Clear); Color,Urine Light-Yellow (Yellow); Glucose,Urine (UA) 300 mg/dL (Normal); Ketones,Urine Negative (Negative); Leukocyte Esterase,Urine Negative (Negative); Nitrite,Urine Negative (Negative); Protein,Urine Trace mg/dL (Neg-Trace); Specific Gravity,Urine 1.023 (1.010-1.025); Urobilinogen,Urine Normal (Normal)
[2020-01-04 12:02] LABS: Basophils % 0.2 %; Eosinophils # 0.1 K/mcL (0.0-0.6); Eosinophils % 1.8 %; Hematocrit 37.3 % (35.3-44.9); Hemoglobin 11.8 g/dL (11.5-15.4); Immature Granulocytes % 0.4 % (0-4); Lymphocytes # 1.5 K/mcL (0.6-4.6); Lymphocytes % 27.4 %; Mean Corpuscular HGB Conc 31.6 g/dL (31.6-35.5); Mean Corpuscular Volume 88.6 fL (83.0-100.0); Mean Platelet Volume 10.4 fL (9.4-12.4); Monocytes # 0.3 K/mcL (0.0-1.3); Monocytes % 4.4 %; Neutrophils # 3.7 K/mcL (1.6-8.9); Platelet Count 265 K/mcL (140-400); Red Blood Count 4.21 M/mcL (3.82-4.97); Red Cell Distribution Width 13.2 % (11.5-14.5); Segmented Neutrophils % 65.8 %; White Blood Count 5.6 K/mcL (4.3-11.1)
[2020-01-04 12:11] LABS: INR 0.9; Prothrombin Time 10.4 Seconds (9.4-12.1)
[2020-01-04 12:13] LABS: Activated Partial Thrombo Time 30.8 Seconds (26.0-36.0)
[2020-01-04 12:21] LABS: Alanine Aminotransferase 14 Units/L (7-52); Albumin 4.1 g/dL (3.5-5.7); Albumin/Globulin Ratio 1.7 (1.1-2.2); Alkaline Phosphatase 103 Units/L (34-104); Aspartate Amino Transferase 13 Units/L (13-39); BUN/Creatinine Ratio 28 (6-26); Bilirubin,Direct 0.1 mg/dL (0.0-0.2); Bilirubin,Indirect 0.6 mg/dL (0.0-1.0); Bilirubin,Total 0.7 mg/dL (0.3-1.0); Blood Urea Nitrogen 16 mg/dL (6-20); Calcium 9.3 mg/dL (8.6-10.3); Carbon Dioxide 25 mEq/L (23-29); Chloride 105 mEq/L (98-107); Globulin 2.4 g/dL (2.4-3.5); Glucose 221 mg/dL (70-105); Osmolality,Calculated 294 (280-300); Potassium 3.6 mEq/L (3.5-5.1); Sodium 138 mEq/L (136-145); Total Protein 6.5 g/dL (6.4-8.9); Troponin I < 0.03 ng/mL (< 0.04); eGFR For African Americans > 60 (> 60); eGFR For Non-African Americans > 60 (> 60)
[2020-01-04] MEDS ORDERED: Isovue-370 500 ML BOTTLE IVP ONE (12:44)
[2020-01-04] MEDS ORDERED: Naloxone 0.4 MG/ML INJ IVP PRN (16:32)
[2020-01-04] MEDS ORDERED: *HR* Dextrose 50 % in Water (Vial) 50 ML VIAL IVP PRN (16:33)
[2020-01-04] MEDS ORDERED: Dextrose Gel 15 GM/37.5 ML TUBE PO PRN ×2 (16:33)
[2020-01-04] MEDS ORDERED: D5% in Water 1,000 ML IVC PRN (16:33)
[2020-01-04] MEDS: Gabapentin 400 MG CAPSULE PO SCH (20:54)
[2020-01-04] MEDS: *HR* Dabigatran 150 MG CAPSULE PO SCH (20:54)
[2020-01-04] MEDS ORDERED: Melatonin 3 MG TABLET PO ONE (21:03)
[2020-01-05 03:47] LABS: Hematocrit 35.7 % (35.3-44.9); Hemoglobin 11.7 g/dL (11.5-15.4); Mean Corpuscular HGB Conc 32.8 g/dL (31.6-35.5); Mean Corpuscular Hemoglobin 28.7 pg (28.0-33.3); Mean Corpuscular Volume 87.7 fL (83.0-100.0); Mean Platelet Volume 10.6 fL (9.4-12.4); Platelet Count 253 K/mcL (140-400); Red Blood Count 4.07 M/mcL (3.82-4.97); Red Cell Distribution Width 13.4 % (11.5-14.5); White Blood Count 6.5 K/mcL (4.3-11.1)
[2020-01-05 04:05] LABS: BUN/Creatinine Ratio 20 (6-26); Blood Urea Nitrogen 12 mg/dL (6-20); Calcium 8.3 mg/dL (8.6-10.3); Carbon Dioxide 23 mEq/L (23-29); Chloride 108 mEq/L (98-107); Glucose 184 mg/dL (70-105); Osmolality,Calculated 295 (280-300); Potassium 3.3 mEq/L (3.5-5.1); Sodium 140 mEq/L (136-145); eGFR For African Americans > 60 (> 60); eGFR For Non-African Americans > 60 (> 60)
[2020-01-05] MEDS ORDERED: Insulin LISPRO 300 UNITS/3 ML VIAL SQ SCH (07:30)
[2020-01-05 07:37] VITALS: BP 129/78
[2020-01-05] MEDS ORDERED: carvediloL 25 MG TABLET PO SCH (08:00)
[2020-01-05] MEDS ORDERED: clonazePAM 0.5 MG TABLET PO PRN (08:59)
[2020-01-05] MEDS ORDERED: tiZANidine 4 MG TABLET PO PRN (08:59)
[2020-01-05] MEDS ORDERED: Aspirin Enteric Coated 81 MG Tablet PO SCH (09:00)
[2020-01-05] MEDS ORDERED: Gabapentin 400 MG CAPSULE PO SCH (09:00)
[2020-01-05] MEDS: *HR* Dabigatran 150 MG CAPSULE PO SCH (10:25)
[2020-01-05] MEDS: Gabapentin 400 MG CAPSULE PO SCH (10:26)
== END 2020-01-05 11:39 | disposition home or self-care (01) ==
LOC: 3BNU 10:38 → EMEROOARM 10:38 → SUATTDRO 14:57 → 3BNU 15:39
PROVIDERS: ADMIT Pharmacist; ATTEND Internal Medicine

== ENCOUNTER 2020-01-14 21:38 | Observation (INO) ==
[2020-01-14] MEDS ORDERED: Isovue-370 500 ML BOTTLE IVP ONE (21:47)
[2020-01-14 22:57] LABS: INR 1.1; Prothrombin Time 12.8 Seconds (9.4-12.1)
[2020-01-14 23:00] LABS: Hematocrit 35.2 % (35.3-44.9); Hemoglobin 11.5 g/dL (11.5-15.4); Mean Corpuscular HGB Conc 32.7 g/dL (31.6-35.5); Mean Corpuscular Hemoglobin 28.2 pg (28.0-33.3); Mean Corpuscular Volume 86.3 fL (83.0-100.0); Mean Platelet Volume 10.5 fL (9.4-12.4); Platelet Count 226 K/mcL (140-400); Red Blood Count 4.08 M/mcL (3.82-4.97); Red Cell Distribution Width 13.2 % (11.5-14.5); White Blood Count 8.5 K/mcL (4.3-11.1)
[2020-01-14 23:01] LABS: Basophils % 0.4 %; Eosinophils # 0.1 K/mcL (0.0-0.6); Eosinophils % 0.9 %; Immature Granulocytes % 0.1 % (0-4); Lymphocytes # 2.5 K/mcL (0.6-4.6); Lymphocytes % 29.5 %; Monocytes # 0.5 K/mcL (0.0-1.3); Monocytes % 5.8 %; Neutrophils # 5.4 K/mcL (1.6-8.9); Segmented Neutrophils % 63.3 %
[2020-01-14 23:05] LABS: Alanine Aminotransferase 18 Units/L (7-52); Albumin 3.8 g/dL (3.5-5.7); Albumin/Globulin Ratio 1.7 (1.1-2.2); Alkaline Phosphatase 105 Units/L (34-104); Aspartate Amino Transferase 19 Units/L (13-39); BUN/Creatinine Ratio 24 (6-26); Bilirubin,Total 0.9 mg/dL (0.3-1.0); Blood Urea Nitrogen 14 mg/dL (6-20); Calcium 8.5 mg/dL (8.6-10.3); Carbon Dioxide 25 mEq/L (23-29); Chloride 106 mEq/L (98-107); Globulin 2.2 g/dL (2.4-3.5); Glucose 274 mg/dL (70-105); Osmolality,Calculated 298 (280-300); Potassium 3.1 mEq/L (3.5-5.1); Sodium 139 mEq/L (136-145); Troponin I < 0.03 ng/mL (< 0.04); eGFR For African Americans > 60 (> 60); eGFR For Non-African Americans > 60 (> 60)
[2020-01-15] MEDS ORDERED: Nitroglycerin 0.4 MG TAB.SUBL SL PRN (01:56)
[2020-01-15] MEDS ORDERED: Acetaminophen 325 MG TABLET PO PRN (01:58)
[2020-01-15] MEDS ORDERED: Dextrose Gel 15 GM/37.5 ML TUBE PO PRN ×2 (02:39)
[2020-01-15] MEDS ORDERED: D5% in Water 1,000 ML IVC PRN (02:39)
[2020-01-15] MEDS ORDERED: *HR* Dextrose 50 % in Water (Vial) 50 ML VIAL IVP PRN (02:39)
[2020-01-15 04:04] LABS: BUN/Creatinine Ratio 27 (6-26); Blood Urea Nitrogen 15 mg/dL (6-20); Calcium 8.5 mg/dL (8.6-10.3); Carbon Dioxide 22 mEq/L (23-29); Chloride 105 mEq/L (98-107); Glucose 326 mg/dL (70-105); Osmolality,Calculated 297 (280-300); Potassium 3.3 mEq/L (3.5-5.1); Sodium 137 mEq/L (136-145); eGFR For African Americans > 60 (> 60); eGFR For Non-African Americans > 60 (> 60)
[2020-01-15 04:05] LABS: Troponin I < 0.03 ng/mL (< 0.04)
[2020-01-15 04:11] LABS: Basophils % 0.6 %; Eosinophils # 0.1 K/mcL (0.0-0.6); Eosinophils % 1.1 %; Hemoglobin 10.9 g/dL (11.5-15.4); Immature Granulocytes % 0.2 % (0-4); Lymphocytes # 2.3 K/mcL (0.6-4.6); Lymphocytes % 36.5 %; Mean Corpuscular Hemoglobin 28.5 pg (28.0-33.3); Mean Corpuscular Volume 86.4 fL (83.0-100.0); Mean Platelet Volume 10.6 fL (9.4-12.4); Monocytes # 0.4 K/mcL (0.0-1.3); Monocytes % 6.1 %; Neutrophils # 3.6 K/mcL (1.6-8.9); Platelet Count 202 K/mcL (140-400); Red Blood Count 3.82 M/mcL (3.82-4.97); Red Cell Distribution Width 13.3 % (11.5-14.5); Segmented Neutrophils % 55.5 %; White Blood Count 6.4 K/mcL (4.3-11.1)
[2020-01-15] MEDS: Insulin LISPRO 300 UNITS/3 ML VIAL SQ SCH ×2 (06:31→12:59)
[2020-01-15] MEDS ORDERED: carvediloL 25 MG TABLET PO SCH (08:00)
[2020-01-15] MEDS ORDERED: *HR* Dabigatran 150 MG CAPSULE PO SCH (09:00)
[2020-01-15] MEDS ORDERED: Aspirin 81 MG TAB.CHEW PO SCH (09:00)
[2020-01-15] MEDS ORDERED: Gabapentin 400 MG CAPSULE PO SCH (09:00)
[2020-01-15] MEDS ORDERED: tiZANidine 4 MG TABLET PO PRN (09:52)
[2020-01-15] MEDS ORDERED: clonazePAM 0.5 MG TABLET PO PRN (09:52)
[2020-01-15 10:44] VITALS: BP 116/81
[2020-01-15 11:00] LABS: BUN/Creatinine Ratio 31 (6-26); Blood Urea Nitrogen 15 mg/dL (6-20); Calcium 9.1 mg/dL (8.6-10.3); Carbon Dioxide 24 mEq/L (23-29); Chloride 107 mEq/L (98-107); Glucose 125 mg/dL (70-105); Osmolality,Calculated 288 (280-300); Potassium 3.2 mEq/L (3.5-5.1); Sodium 138 mEq/L (136-145); Troponin I < 0.03 ng/mL (< 0.04); eGFR For African Americans > 60 (> 60); eGFR For Non-African Americans > 60 (> 60)
[2020-01-15] MEDS ORDERED: Magnesium Sulfate 1 GM/102 ML PIGGYBACK IVPB ONE (11:08)
== END 2020-01-15 13:19 | disposition home or self-care (01) ==
LOC: EMEROOARM 21:38 → 3BNU 21:38 → SUATTDRO 01-15 01:51 → 3BNU 01-15 02:20
PROVIDERS: ADMIT Student in an Organized Health Care Education/Training Program; ATTEND Internal Medicine

== ENCOUNTER 2020-01-21 09:30 | Observation (INO) ==
[2020-01-21] MEDS ORDERED: Isovue-370 500 ML BOTTLE IVP ONE (09:57)
[2020-01-21 10:20] LABS: Hematocrit 34.6 % (35.3-44.9); Hemoglobin 11.1 g/dL (11.5-15.4); Mean Corpuscular HGB Conc 32.1 g/dL (31.6-35.5); Mean Corpuscular Hemoglobin 27.8 pg (28.0-33.3); Mean Corpuscular Volume 86.5 fL (83.0-100.0); Mean Platelet Volume 10.2 fL (9.4-12.4); Platelet Count 225 K/mcL (140-400); Red Cell Distribution Width 13.2 % (11.5-14.5); White Blood Count 6.2 K/mcL (4.3-11.1)
[2020-01-21 10:29] LABS: Prothrombin Time 11.7 Seconds (9.4-12.1)
[2020-01-21 10:31] LABS: Activated Partial Thrombo Time 46.1 Seconds (26.0-36.0)
[2020-01-21 10:33] LABS: Bilirubin,Urine Negative (Negative); Blood,Urine Negative (Negative); Clarity,Urine Clear (Clear); Color,Urine Light-Yellow (Yellow); Glucose,Urine (UA) 30 mg/dL (Normal); Ketones,Urine Negative (Negative); Leukocyte Esterase,Urine Negative (Negative); Nitrite,Urine Negative (Negative); PH,Urine 6.5 pH Units (5.0-8.0); Protein,Urine Negative (Neg-Trace); Specific Gravity,Urine 1.012 (1.010-1.025); Urobilinogen,Urine Normal (Normal)
[2020-01-21 10:37] LABS: BUN/Creatinine Ratio 17 (6-26); Blood Urea Nitrogen 9 mg/dL (6-20); Calcium 8.8 mg/dL (8.6-10.3); Carbon Dioxide 24 mEq/L (23-29); Chloride 107 mEq/L (98-107); Creatine Kinase 59 Units/L (30-223); Glucose 194 mg/dL (70-105); Magnesium 1.6 mg/dL (1.6-2.6); Osmolality,Calculated 294 (280-300); Potassium 3.6 mEq/L (3.5-5.1); Sodium 140 mEq/L (136-145); eGFR For African Americans > 60 (> 60); eGFR For Non-African Americans > 60 (> 60)
[2020-01-21 10:49] LABS: RBC,Urine 0-3 per hpf (0-3); Squamous Epithelial Cell,Urine Few per hpf (None-Few); WBC,Urine 0-3 per hpf (0-3)
[2020-01-21 10:54] LABS: Troponin I < 0.03 ng/mL (< 0.04)
[2020-01-21] MEDS ORDERED: Ondansetron 4 MG/2 ML VIAL IVP PRN (12:51)
[2020-01-21] MEDS ORDERED: Naloxone 0.4 MG/ML INJ IVP PRN (12:51)
[2020-01-21] MEDS ORDERED: *HR* Dextrose 50 % in Water (Vial) 50 ML VIAL IVP PRN (12:54)
[2020-01-21] MEDS ORDERED: D5% in Water 1,000 ML IVC PRN (12:54)
[2020-01-21] MEDS ORDERED: Dextrose Gel 15 GM/37.5 ML TUBE PO PRN ×2 (12:54)
[2020-01-21] MEDS ORDERED: clonazePAM 0.5 MG TABLET PO PRN (13:36)
[2020-01-21] MEDS: Gabapentin 400 MG CAPSULE PO SCH ×2 (15:48→19:58)
[2020-01-21] MEDS: carvediloL 25 MG TABLET PO SCH (15:49)
[2020-01-21] MEDS: *HR* HYDROcodone/Acet 5/325 mg TABLET PO PRN ×2 (15:49→20:25)
[2020-01-21] MEDS: Aspirin Enteric Coated 81 MG Tablet PO SCH (15:54)
[2020-01-21] MEDS: Insulin LISPRO 300 UNITS/3 ML VIAL SQ SCH (17:17)
[2020-01-21] MEDS: *HR* Dabigatran 150 MG CAPSULE PO SCH (19:59)
[2020-01-21] MEDS ORDERED: Insulin DETEMIR 100 UNIT/ML X5UNITS SQ SCH (21:00)
[2020-01-22] MEDS: *HR* HYDROcodone/Acet 5/325 mg TABLET PO PRN ×2 (04:24→10:35)
[2020-01-22 07:32] LABS: Basophils % 0.4 %; Eosinophils # 0.1 K/mcL (0.0-0.6); Hematocrit 33.7 % (35.3-44.9); Hemoglobin 10.9 g/dL (11.5-15.4); Immature Granulocytes % 0.4 % (0-4); Lymphocytes # 1.6 K/mcL (0.6-4.6); Lymphocytes % 32.1 %; Mean Corpuscular HGB Conc 32.3 g/dL (31.6-35.5); Mean Corpuscular Hemoglobin 28.3 pg (28.0-33.3); Mean Corpuscular Volume 87.5 fL (83.0-100.0); Mean Platelet Volume 10.5 fL (9.4-12.4); Monocytes # 0.3 K/mcL (0.0-1.3); Monocytes % 6.3 %; Platelet Count 219 K/mcL (140-400); Red Blood Count 3.85 M/mcL (3.82-4.97); Red Cell Distribution Width 13.2 % (11.5-14.5); Segmented Neutrophils % 58.8 %; White Blood Count 5.1 K/mcL (4.3-11.1)
[2020-01-22 07:40] LABS: BUN/Creatinine Ratio 13 (6-26); Blood Urea Nitrogen 6 mg/dL (6-20); Calcium 8.7 mg/dL (8.6-10.3); Carbon Dioxide 27 mEq/L (23-29); Chloride 105 mEq/L (98-107); Glucose 245 mg/dL (70-105); Magnesium 1.7 mg/dL (1.6-2.6); Osmolality,Calculated 294 (280-300); Phosphorous 3.8 mg/dL (2.7-4.5); Potassium 3.4 mEq/L (3.5-5.1); Sodium 139 mEq/L (136-145); eGFR For African Americans > 60 (> 60); eGFR For Non-African Americans > 60 (> 60)
[2020-01-22] MEDS: carvediloL 25 MG TABLET PO SCH (08:01)
[2020-01-22] MEDS: Gabapentin 400 MG CAPSULE PO SCH (08:02)
[2020-01-22] MEDS: *HR* Dabigatran 150 MG CAPSULE PO SCH (08:02)
[2020-01-22] MEDS: Insulin LISPRO 300 UNITS/3 ML VIAL SQ SCH (08:02)
[2020-01-22] MEDS: Aspirin Enteric Coated 81 MG Tablet PO SCH (08:02)
[2020-01-22 10:11] LABS: Chol/HDL Ratio 4.2 (0-4.9); Cholesterol 144 mg/dL (< 200); HDL Cholesterol 34 mg/dL (40-59); LDL Cholesterol,Calculated 86 mg/dL (< 100); Triglycerides 118 mg/dL (< 150)
[2020-01-22 11:22] VITALS: BP 134/75
[2020-01-22 11:43] LABS: Estimated Average Glucose 229 mg/dl
== END 2020-01-22 13:40 | disposition home or self-care (01) ==
LOC: 3BNU 09:30 → EMEROOARM 09:30 → SUATTDRO 13:10 → 3BNU 14:08
PROVIDERS: ADMIT Internal Medicine; ATTEND Internal Medicine

== ENCOUNTER 2020-02-18 18:43 | Inpatient (IN) ==
[2020-02-18] MEDS ORDERED: 0.9 % Sodium Chloride 1,000 ML IVC ONE (19:10)
[2020-02-18 19:34] LABS: Basophils % 0.4 %; Eosinophils # 0.1 K/mcL (0.0-0.6); Eosinophils % 1.1 %; Hematocrit 38.8 % (35.3-44.9); Hemoglobin 12.8 g/dL (11.5-15.4); Immature Granulocytes % 0.2 % (0-4); Lymphocytes # 2.4 K/mcL (0.6-4.6); Lymphocytes % 28.8 %; Mean Corpuscular Hemoglobin 27.9 pg (28.0-33.3); Mean Corpuscular Volume 84.7 fL (83.0-100.0); Mean Platelet Volume 10.8 fL (9.4-12.4); Monocytes # 0.4 K/mcL (0.0-1.3); Monocytes % 4.4 %; Neutrophils # 5.3 K/mcL (1.6-8.9); Platelet Count 250 K/mcL (140-400); Red Blood Count 4.58 M/mcL (3.82-4.97); Red Cell Distribution Width 13.2 % (11.5-14.5); Segmented Neutrophils % 65.1 %; White Blood Count 8.2 K/mcL (4.3-11.1)
[2020-02-18 19:53] LABS: BUN/Creatinine Ratio 14 (6-26); Blood Urea Nitrogen 8 mg/dL (6-20); Calcium 9.7 mg/dL (8.6-10.3); Carbon Dioxide 21 mEq/L (23-29); Chloride 104 mEq/L (98-107); Glucose 243 mg/dL (70-105); Osmolality,Calculated 294 (280-300); Potassium 3.6 mEq/L (3.5-5.1); Sodium 139 mEq/L (136-145); Troponin I < 0.03 ng/mL (< 0.04); eGFR For African Americans > 60 (> 60); eGFR For Non-African Americans > 60 (> 60)
[2020-02-18] MEDS ORDERED: Azithromycin 500 MG in D5% in Water 250 ML IVPB ONE (20:51)
[2020-02-18] MEDS ORDERED: cefTRIAXone 1,000 MG in 0.9 % Sodium Chloride Mini Bag 100 ML IVPB ONE (20:51)
[2020-02-18] MEDS ORDERED: Azithromycin 500 MG in 0.9 % Sodium Chloride 250 ML IVPB ONE ×2 (21:07→21:36)
[2020-02-18] MEDS ORDERED: cefTRIAXone 1,000 MG in Water for inj. (sterile) 10 ML IVP ONE (21:07)
[2020-02-18 21:15] LABS: Adenovirus Not Detected (Not Detect); Bordetella Pertussis Not Detected (Not Detect); Chlamydophila pneumoniae Not Detected (Not Detect); Coronavirus 229E Not Detected (Not Detect); Coronavirus HKU1 Not Detected (Not Detect); Coronavirus NL63 Not Detected (Not Detect); Coronavirus OC43 Not Detected (Not Detect); Human Metapneumovirus Not Detected (Not Detect); Human Rhinovirus/Enterovirus Not Detected (Not Detect); Influenza A Subtype 2009 H1 Not Detected (Not Detect); Influenza B Not Detected (Not Detect); Mycoplasma pneumoniae Not Detected (Not Detect); Parainfluenza Virus 1 Not Detected (Not Detect); Parainfluenza Virus 2 Not Detected (Not Detect); Parainfluenza Virus 3 Not Detected (Not Detect); Parainfluenza Virus 4 Not Detected (Not Detect); Respiratory Syncytial Virus Not Detected (Not Detect)
[2020-02-18] MEDS: DilTIAZem 50 MG/50 ML IV.SOLN IVC SCH (21:42)
[2020-02-18] MEDS ORDERED: Isovue-370 500 ML BOTTLE IVP ONE (22:28)
[2020-02-18] MEDS ORDERED: *HR* LORazepam 2 MG/ML VIAL IVP ONE (23:19)
[2020-02-18] MEDS: Nitroglycerin 0.4 MG TAB.SUBL SL PRN (23:24)
[2020-02-19] MEDS ORDERED: Morphine Sulfate 2 MG/ML SYRINGE IVP PRN (00:06)
[2020-02-19] MEDS ORDERED: Naloxone 0.4 MG/ML INJ IVP PRN (00:39)
[2020-02-19] MEDS ORDERED: Ondansetron 4 MG/2 ML VIAL IVP PRN (00:39)
[2020-02-19] MEDS ORDERED: 0.9 % Sodium Chloride 1,000 ML IVC SCH (00:45)
[2020-02-19] MEDS: DilTIAZem 50 MG/50 ML IV.SOLN IVC SCH ×2 (02:10→12:53)
[2020-02-19] MEDS: Nitroglycerin 0.4 MG TAB.SUBL SL PRN (03:00)
[2020-02-19] MEDS ORDERED: *HR* Dextrose 50 % in Water (Vial) 50 ML VIAL IVP PRN (03:01)
[2020-02-19] MEDS ORDERED: D5% in Water 1,000 ML IVC PRN (03:01)
[2020-02-19] MEDS ORDERED: Dextrose Gel 15 GM/37.5 ML TUBE PO PRN ×2 (03:01)
[2020-02-19 03:15] LABS: Basophils % 0.4 %; Eosinophils # 0.1 K/mcL (0.0-0.6); Eosinophils % 1.1 %; Hematocrit 39.8 % (35.3-44.9); Hemoglobin 12.8 g/dL (11.5-15.4); Immature Granulocytes % 0.1 % (0-4); Lymphocytes # 2.3 K/mcL (0.6-4.6); Lymphocytes % 27.8 %; Mean Corpuscular HGB Conc 32.2 g/dL (31.6-35.5); Mean Corpuscular Hemoglobin 27.4 pg (28.0-33.3); Mean Platelet Volume 10.9 fL (9.4-12.4); Monocytes # 0.4 K/mcL (0.0-1.3); Neutrophils # 5.3 K/mcL (1.6-8.9); Platelet Count 250 K/mcL (140-400); Red Blood Count 4.68 M/mcL (3.82-4.97); Red Cell Distribution Width 13.2 % (11.5-14.5); Segmented Neutrophils % 65.6 %; White Blood Count 8.1 K/mcL (4.3-11.1)
[2020-02-19 03:31] LABS: Alanine Aminotransferase 21 Units/L (7-52); Albumin 4.1 g/dL (3.5-5.7); Albumin/Globulin Ratio 1.5 (1.1-2.2); Alkaline Phosphatase 113 Units/L (34-104); Aspartate Amino Transferase 21 Units/L (13-39); BUN/Creatinine Ratio 15 (6-26); Bilirubin,Total 0.9 mg/dL (0.3-1.0); Blood Urea Nitrogen 8 mg/dL (6-20); Calcium 9.3 mg/dL (8.6-10.3); Carbon Dioxide 20 mEq/L (23-29); Chloride 106 mEq/L (98-107); Globulin 2.7 g/dL (2.4-3.5); Glucose 271 mg/dL (70-105); Osmolality,Calculated 296 (280-300); Potassium 3.6 mEq/L (3.5-5.1); Sodium 139 mEq/L (136-145); Total Protein 6.8 g/dL (6.4-8.9); eGFR For African Americans > 60 (> 60); eGFR For Non-African Americans > 60 (> 60)
[2020-02-19] MEDS ORDERED: tiZANidine 4 MG TABLET PO PRN (05:07)
[2020-02-19] MEDS ORDERED: *HR* LORazepam 2 MG/ML VIAL IVP ONE (05:41)
[2020-02-19] MEDS ORDERED: Insulin LISPRO 300 UNITS/3 ML VIAL SQ SCH ×2 (06:00→12:00)
[2020-02-19] MEDS ORDERED: lisinopriL 5 MG TABLET PO SCH (09:00)
[2020-02-19] MEDS ORDERED: *HR* Dabigatran 150 MG CAPSULE PO SCH (09:00)
[2020-02-19] MEDS ORDERED: Aspirin Enteric Coated 81 MG Tablet PO SCH (09:00)
[2020-02-19] MEDS: carvediloL 25 MG TABLET PO SCH ×2 (09:40→15:44)
[2020-02-19] MEDS: Gabapentin 400 MG CAPSULE PO SCH ×2 (09:41→15:46)
[2020-02-19] MEDS ORDERED: Insulin DETEMIR 100 UNIT/ML X5UNITS SQ SCH (10:30)
[2020-02-19] MEDS ORDERED: DilTIAZem 50 MG/50 ML IV.SOLN IVC SCH (13:00)
[2020-02-19 15:58] VITALS: BP 153/63
[2020-02-19] MEDS ORDERED: cefTRIAXone 1,000 MG in 0.9 % Sodium Chloride Mini Bag 100 ML IVPB SCH (21:00)
[2020-02-19] MEDS ORDERED: Doxycycline 100 MG CAPSULE PO SCH (21:00)
[2020-02-19] MEDS ORDERED: Azithromycin 500 MG in 0.9 % Sodium Chloride 250 ML IVPB SCH (21:00)
== END 2020-02-19 19:30 | disposition left against medical advice (07) | DRG 308 ==
LOC: EMEROOARM 18:43 → 2ANU 18:43 → SUATTDRO 22:38 → 2ANU 02-19
PROVIDERS: ADMIT Internal Medicine; ATTEND Internal Medicine

== ENCOUNTER 2020-02-29 09:06 | Observation (INO) ==
[2020-02-29] MEDS ORDERED: Aspirin 81 MG TAB.CHEW PO ONE (09:32)
[2020-02-29] MEDS ORDERED: DilTIAZem 50 MG/50 ML IV.SOLN IVC SCH (09:45)
[2020-02-29 10:25] LABS: Basophils % 0.4 %; Eosinophils # 0.1 K/mcL (0.0-0.6); Hematocrit 42.5 % (35.3-44.9); Hemoglobin 13.8 g/dL (11.5-15.4); Immature Granulocytes % 0.3 % (0-4); Lymphocytes % 25.8 %; Mean Corpuscular HGB Conc 32.5 g/dL (31.6-35.5); Mean Corpuscular Hemoglobin 27.9 pg (28.0-33.3); Mean Corpuscular Volume 85.9 fL (83.0-100.0); Mean Platelet Volume 11.2 fL (9.4-12.4); Monocytes # 0.3 K/mcL (0.0-1.3); Monocytes % 3.9 %; Neutrophils # 5.3 K/mcL (1.6-8.9); Platelet Count 291 K/mcL (140-400); Red Blood Count 4.95 M/mcL (3.82-4.97); Red Cell Distribution Width 13.4 % (11.5-14.5); Segmented Neutrophils % 68.6 %; White Blood Count 7.8 K/mcL (4.3-11.1)
[2020-02-29 10:37] LABS: INR 0.9; Prothrombin Time 10.4 Seconds (9.4-12.1)
[2020-02-29 10:40] LABS: Activated Partial Thrombo Time 30.2 Seconds (26.0-36.0)
[2020-02-29 10:41] LABS: Bilirubin,Urine Negative (Negative); Blood,Urine Negative (Negative); Clarity,Urine Clear (Clear); Color,Urine Colorless (Yellow); Glucose,Urine (UA) >=1000 mg/dL (Normal); Ketones,Urine Trace mg/dL (Negative); Leukocyte Esterase,Urine Trace (Negative); Nitrite,Urine Negative (Negative); Protein,Urine Negative (Neg-Trace); RBC,Urine 0-3 per hpf (0-3); Specific Gravity,Urine 1.021 (1.010-1.025); Urobilinogen,Urine Normal (Normal); WBC,Urine 0-3 per hpf (0-3)
[2020-02-29 10:57] LABS: Troponin I < 0.03 ng/mL (< 0.04)
[2020-02-29 10:58] LABS: BUN/Creatinine Ratio 27 (6-26); Blood Urea Nitrogen 18 mg/dL (6-20); Calcium 9.7 mg/dL (8.6-10.3); Carbon Dioxide 22 mEq/L (23-29); Chloride 102 mEq/L (98-107); Glucose 435 mg/dL (70-105); Osmolality,Calculated 305 (280-300); Potassium 3.8 mEq/L (3.5-5.1); Sodium 137 mEq/L (136-145); eGFR For African Americans > 60 (> 60); eGFR For Non-African Americans > 60 (> 60)
[2020-02-29] MEDS ORDERED: Naloxone 0.4 MG/ML INJ IVP PRN (11:33)
[2020-02-29] MEDS ORDERED: Ondansetron 4 MG/2 ML VIAL IVP PRN (11:33)
[2020-02-29] MEDS ORDERED: clonazePAM 0.5 MG TABLET PO PRN (11:37)
[2020-02-29] MEDS ORDERED: Dextrose Gel 15 GM/37.5 ML TUBE PO PRN ×2 (11:41)
[2020-02-29] MEDS ORDERED: *HR* Dextrose 50 % in Water (Vial) 50 ML VIAL IVP PRN (11:41)
[2020-02-29] MEDS ORDERED: D5% in Water 1,000 ML IVC PRN (11:41)
[2020-02-29] MEDS ORDERED: Ipratropium/Albuterol Neb 3 ML IH PRN (12:27)
[2020-02-29 12:48] LABS: Estimated Average Glucose 252 mg/dl
[2020-02-29] MEDS ORDERED: Levalbuterol 1 PUFF INHALER IH PRN (13:02)
[2020-02-29] MEDS: Insulin LISPRO 300 UNITS/3 ML VIAL SQ SCH ×2 (13:10→16:38)
[2020-02-29] MEDS: Insulin DETEMIR 100 UNIT/ML X5UNITS SQ SCH ×2 (13:10→20:01)
[2020-02-29] MEDS: Metoprolol XL (24 HR) Succ 50 MG TAB.ER.24H PO SCH ×2 (14:26→19:58)
[2020-02-29] MEDS: Gabapentin 400 MG CAPSULE PO SCH ×2 (14:26→19:59)
[2020-02-29] MEDS: *HR* Dabigatran 150 MG CAPSULE PO SCH (19:59)
[2020-02-29] MEDS ORDERED: Insulin LISPRO 300 UNITS/3 ML VIAL SQ SCH (21:00)
[2020-03-01 05:58] LABS: Basophils # 0.1 K/mcL (0.0-0.2); Basophils % 0.6 %; Eosinophils # 0.2 K/mcL (0.0-0.6); Hematocrit 36.2 % (35.3-44.9); Immature Granulocytes % 0.2 % (0-4); Lymphocytes # 2.6 K/mcL (0.6-4.6); Lymphocytes % 28.9 %; Mean Corpuscular HGB Conc 32.9 g/dL (31.6-35.5); Mean Corpuscular Hemoglobin 28.1 pg (28.0-33.3); Mean Corpuscular Volume 85.4 fL (83.0-100.0); Mean Platelet Volume 10.8 fL (9.4-12.4); Monocytes # 0.4 K/mcL (0.0-1.3); Monocytes % 4.8 %; Neutrophils # 5.7 K/mcL (1.6-8.9); Platelet Count 255 K/mcL (140-400); Red Blood Count 4.24 M/mcL (3.82-4.97); Red Cell Distribution Width 13.3 % (11.5-14.5); Segmented Neutrophils % 63.5 %
[2020-03-01 06:09] LABS: BUN/Creatinine Ratio 28 (6-26); Blood Urea Nitrogen 18 mg/dL (6-20); Calcium 9.3 mg/dL (8.6-10.3); Carbon Dioxide 24 mEq/L (23-29); Chloride 102 mEq/L (98-107); Glucose 231 mg/dL (70-105); Magnesium 1.6 mg/dL (1.6-2.6); Osmolality,Calculated 289 (280-300); Phosphorous 4.2 mg/dL (2.7-4.5); Potassium 3.4 mEq/L (3.5-5.1); Sodium 135 mEq/L (136-145); eGFR For African Americans > 60 (> 60); eGFR For Non-African Americans > 60 (> 60)
[2020-03-01 06:16] LABS: Hemoglobin 11.9 g/dL (11.5-15.4)
[2020-03-01 07:31] VITALS: BP 146/82
[2020-03-01] MEDS: Metoprolol XL (24 HR) Succ 50 MG TAB.ER.24H PO SCH (08:09)
[2020-03-01] MEDS: Gabapentin 400 MG CAPSULE PO SCH (08:09)
[2020-03-01] MEDS: *HR* Dabigatran 150 MG CAPSULE PO SCH (08:09)
[2020-03-01] MEDS: Insulin LISPRO 300 UNITS/3 ML VIAL SQ SCH (08:12)
[2020-03-01] MEDS: Insulin DETEMIR 100 UNIT/ML X5UNITS SQ SCH (08:13)
[2020-03-01] MEDS ORDERED: Aspirin Enteric Coated 81 MG Tablet PO SCH (09:00)
[2020-03-01] MEDS ORDERED: lisinopriL 5 MG TABLET PO SCH (09:00)
== END 2020-03-01 11:11 | disposition home or self-care (01) ==
LOC: EMEROOARM 09:06 → 2ANU 09:06 → SUATTDRO 11:39 → 2ANU 12:37
PROVIDERS: ADMIT Student in an Organized Health Care Education/Training Program; ATTEND Family Medicine

== ENCOUNTER 2020-03-30 07:03 | Inpatient (IN) ==
[2020-03-30] MEDS ORDERED: Aspirin 81 MG TAB.CHEW PO ONE (07:06)
[2020-03-30] MEDS: Nitroglycerin 0.4 MG TAB.SUBL SL PRN ×4 (07:38→23:19)
[2020-03-30 07:49] LABS: Basophils % 0.4 %; Eosinophils # 0.1 K/mcL (0.0-0.6); Eosinophils % 1.5 %; Hematocrit 35.5 % (35.3-44.9); Hemoglobin 11.2 g/dL (11.5-15.4); Immature Granulocytes % 0.3 % (0-4); Lymphocytes # 1.6 K/mcL (0.6-4.6); Lymphocytes % 22.1 %; Mean Corpuscular HGB Conc 31.5 g/dL (31.6-35.5); Mean Corpuscular Hemoglobin 26.5 pg (28.0-33.3); Mean Corpuscular Volume 83.9 fL (83.0-100.0); Mean Platelet Volume 10.5 fL (9.4-12.4); Monocytes # 0.3 K/mcL (0.0-1.3); Monocytes % 4.4 %; Neutrophils # 5.1 K/mcL (1.6-8.9); Platelet Count 252 K/mcL (140-400); Red Blood Count 4.23 M/mcL (3.82-4.97); Red Cell Distribution Width 13.7 % (11.5-14.5); Segmented Neutrophils % 71.3 %; White Blood Count 7.2 K/mcL (4.3-11.1)
[2020-03-30 07:50] LABS: INR 1.2; Prothrombin Time 13.3 Seconds (9.4-12.1)
[2020-03-30 07:53] LABS: Activated Partial Thrombo Time 46.8 Seconds (26.0-36.0)
[2020-03-30 08:06] LABS: BUN/Creatinine Ratio 17 (6-26); Blood Urea Nitrogen 10 mg/dL (6-20); Calcium 8.9 mg/dL (8.6-10.3); Carbon Dioxide 26 mEq/L (23-29); Chloride 107 mEq/L (98-107); Glucose 212 mg/dL (70-105); Osmolality,Calculated 297 (280-300); Potassium 3.3 mEq/L (3.5-5.1); Sodium 141 mEq/L (136-145); eGFR For African Americans > 60 (> 60); eGFR For Non-African Americans > 60 (> 60)
[2020-03-30 08:08] LABS: Troponin I < 0.03 ng/mL (< 0.04)
[2020-03-30] MEDS ORDERED: Ondansetron ODT 4 MG TAB.RAPDIS SL ONE (08:18)
[2020-03-30] MEDS ORDERED: Morphine Sulfate 2 MG/ML SYRINGE IVP ONE ×2 (08:18→23:32)
[2020-03-30] MEDS ORDERED: Furosemide 40 MG/4 ML VIAL IVP ONE (08:21)
[2020-03-30] MEDS ORDERED: Naloxone 0.4 MG/ML INJ IVP PRN (08:26)
[2020-03-30 09:08] LABS: Adenovirus Not Detected (Not Detect); Bordetella Pertussis Not Detected (Not Detect); Chlamydophila pneumoniae Not Detected (Not Detect); Coronavirus 229E Not Detected (Not Detect); Coronavirus HKU1 Not Detected (Not Detect); Coronavirus NL63 Not Detected (Not Detect); Coronavirus OC43 Not Detected (Not Detect); Human Metapneumovirus Not Detected (Not Detect); Human Rhinovirus/Enterovirus Not Detected (Not Detect); Influenza A Subtype 2009 H1 Not Detected (Not Detect); Influenza B Not Detected (Not Detect); Mycoplasma pneumoniae Not Detected (Not Detect); Parainfluenza Virus 1 Not Detected (Not Detect); Parainfluenza Virus 2 Not Detected (Not Detect); Parainfluenza Virus 3 Not Detected (Not Detect); Parainfluenza Virus 4 Not Detected (Not Detect); Respiratory Syncytial Virus Not Detected (Not Detect); SARS-CoV-2 Not Detected (Not Detect)
[2020-03-30] MEDS ORDERED: Perflutren Lipid Microsphere 1.3 ML in 0.9 % Sodium Chloride 8.7 ML IVP PRN (11:06)
[2020-03-30] MEDS ORDERED: clonazePAM 0.5 MG TABLET PO PRN (11:07)
[2020-03-30] MEDS ORDERED: tiZANidine 4 MG TABLET PO PRN (11:07)
[2020-03-30] MEDS: Gabapentin 400 MG CAPSULE PO SCH ×2 (15:03→21:26)
[2020-03-30] MEDS ORDERED: Insulin DETEMIR 100 UNIT/ML X5UNITS SQ SCH (21:00)
[2020-03-30] MEDS: Metoprolol XL (24 HR) Succ 50 MG TAB.ER.24H PO SCH (21:26)
[2020-03-30] MEDS: Insulin DETEMIR 100 UNIT/ML X5UNITS SQ SCH (21:26)
[2020-03-30] MEDS: *HR* Dabigatran 150 MG CAPSULE PO SCH (21:26)
[2020-03-30] MEDS ORDERED: Insulin LISPRO 300 UNITS/3 ML VIAL SQ ONE (23:28)
[2020-03-31 00:13] LABS: Basophils % 0.5 %; Eosinophils # 0.1 K/mcL (0.0-0.6); Eosinophils % 1.6 %; Hematocrit 34.8 % (35.3-44.9); Hemoglobin 11.4 g/dL (11.5-15.4); Immature Granulocytes % 0.2 % (0-4); Lymphocytes # 1.6 K/mcL (0.6-4.6); Lymphocytes % 25.3 %; Mean Corpuscular HGB Conc 32.8 g/dL (31.6-35.5); Mean Corpuscular Hemoglobin 27.9 pg (28.0-33.3); Mean Corpuscular Volume 85.3 fL (83.0-100.0); Mean Platelet Volume 10.5 fL (9.4-12.4); Monocytes # 0.3 K/mcL (0.0-1.3); Neutrophils # 4.3 K/mcL (1.6-8.9); Platelet Count 248 K/mcL (140-400); Red Blood Count 4.08 M/mcL (3.82-4.97); Red Cell Distribution Width 13.7 % (11.5-14.5); Segmented Neutrophils % 67.4 %; White Blood Count 6.4 K/mcL (4.3-11.1)
[2020-03-31 00:32] LABS: BUN/Creatinine Ratio 16 (6-26); Blood Urea Nitrogen 9 mg/dL (6-20); Calcium 8.4 mg/dL (8.6-10.3); Carbon Dioxide 26 mEq/L (23-29); Chloride 103 mEq/L (98-107); Glucose 364 mg/dL (70-105); Osmolality,Calculated 301 (280-300); Potassium 3.2 mEq/L (3.5-5.1); Sodium 139 mEq/L (136-145); eGFR For African Americans > 60 (> 60); eGFR For Non-African Americans > 60 (> 60)
[2020-03-31 00:33] LABS: Troponin I < 0.03 ng/mL (< 0.04)
[2020-03-31] MEDS ORDERED: Acetaminophen IV 1,000 MG/100 ML BAG IVPB ONE (01:24)
[2020-03-31] MEDS: Metoprolol XL (24 HR) Succ 50 MG TAB.ER.24H PO SCH ×2 (08:03→20:34)
[2020-03-31] MEDS: Aspirin Enteric Coated 81 MG Tablet PO SCH (08:03)
[2020-03-31] MEDS: Gabapentin 400 MG CAPSULE PO SCH ×3 (08:03→20:34)
[2020-03-31] MEDS: *HR* Dabigatran 150 MG CAPSULE PO SCH ×2 (08:03→20:34)
[2020-03-31] MEDS: Insulin DETEMIR 100 UNIT/ML X5UNITS SQ SCH ×2 (08:04→20:34)
[2020-03-31] MEDS ORDERED: Furosemide 40 MG/4 ML VIAL IVP SCH (09:00)
[2020-03-31] MEDS: *HR* HYDROcodone/Acet 5/325 mg TABLET PO PRN ×3 (10:58→22:17)
[2020-03-31] MEDS ORDERED: D5% in Water 1,000 ML IVC PRN (13:13)
[2020-03-31] MEDS ORDERED: *HR* Dextrose 50 % in Water (Vial) 50 ML VIAL IVP PRN (13:13)
[2020-03-31] MEDS ORDERED: Dextrose Gel 15 GM/37.5 ML TUBE PO PRN ×2 (13:13)
[2020-03-31] MEDS: Sucralfate 1 GM TABLET PO SCH ×2 (17:07→20:34)
[2020-03-31] MEDS: Insulin LISPRO 300 UNITS/3 ML VIAL SQ SCH ×2 (17:07)
[2020-03-31] MEDS: Furosemide 40 MG/4 ML VIAL IVP SCH (20:34)
[2020-04-01 02:30] LABS: Basophils % 0.5 %; Eosinophils # 0.1 K/mcL (0.0-0.6); Eosinophils % 1.6 %; Hematocrit 42.4 % (35.3-44.9); Hemoglobin 13.8 g/dL (11.5-15.4); Immature Granulocytes % 0.1 % (0-4); Lymphocytes # 2.5 K/mcL (0.6-4.6); Mean Corpuscular HGB Conc 32.5 g/dL (31.6-35.5); Mean Corpuscular Hemoglobin 27.5 pg (28.0-33.3); Mean Corpuscular Volume 84.5 fL (83.0-100.0); Mean Platelet Volume 10.7 fL (9.4-12.4); Monocytes # 0.5 K/mcL (0.0-1.3); Monocytes % 5.4 %; Neutrophils # 5.5 K/mcL (1.6-8.9); Platelet Count 310 K/mcL (140-400); Red Blood Count 5.02 M/mcL (3.82-4.97); Red Cell Distribution Width 13.6 % (11.5-14.5); Segmented Neutrophils % 63.4 %; White Blood Count 8.7 K/mcL (4.3-11.1)
[2020-04-01 02:51] LABS: BUN/Creatinine Ratio 16 (6-26); Blood Urea Nitrogen 10 mg/dL (6-20); Calcium 8.9 mg/dL (8.6-10.3); Carbon Dioxide 28 mEq/L (23-29); Chloride 98 mEq/L (98-107); Glucose 376 mg/dL (70-105); Magnesium 1.5 mg/dL (1.6-2.6); Osmolality,Calculated 300 (280-300); Phosphorous 3.2 mg/dL (2.7-4.5); Potassium 3.4 mEq/L (3.5-5.1); Sodium 138 mEq/L (136-145); eGFR For African Americans > 60 (> 60); eGFR For Non-African Americans > 60 (> 60)
[2020-04-01] MEDS: *HR* HYDROcodone/Acet 5/325 mg TABLET PO PRN ×5 (03:19→21:07)
[2020-04-01] MEDS ORDERED: Magnesium Sulfate 1 GM/102 ML PIGGYBACK IVPB ONE (08:06)
[2020-04-01] MEDS: Furosemide 40 MG/4 ML VIAL IVP SCH ×2 (08:26→20:28)
[2020-04-01] MEDS: Gabapentin 400 MG CAPSULE PO SCH ×3 (08:27→20:27)
[2020-04-01] MEDS: *HR* Dabigatran 150 MG CAPSULE PO SCH ×2 (08:27→20:28)
[2020-04-01] MEDS: Aspirin Enteric Coated 81 MG Tablet PO SCH (08:28)
[2020-04-01] MEDS: Sucralfate 1 GM TABLET PO SCH ×4 (08:28→20:27)
[2020-04-01] MEDS: Metoprolol XL (24 HR) Succ 50 MG TAB.ER.24H PO SCH ×2 (08:28→20:28)
[2020-04-01] MEDS: lisinopriL 5 MG TABLET PO SCH (08:28)
[2020-04-01] MEDS: Insulin LISPRO 300 UNITS/3 ML VIAL SQ SCH ×6 (08:28→16:44)
[2020-04-01] MEDS: Insulin DETEMIR 100 UNIT/ML X5UNITS SQ SCH (09:00)
[2020-04-01] MEDS: Nitroglycerin 0.4 MG TAB.SUBL SL PRN (15:16)
[2020-04-01] MEDS ORDERED: Insulin DETEMIR 100 UNIT/ML X5UNITS SQ SCH (21:00)
[2020-04-01] MEDS ORDERED: Metoprolol XL (24 HR) Succ 50 MG TAB.ER.24H PO SCH (21:00)
[2020-04-02] MEDS ORDERED: Melatonin 3 MG TABLET PO ONE (00:49)
[2020-04-02 00:52] LABS: Basophils # 0.1 K/mcL (0.0-0.2); Basophils % 0.5 %; Eosinophils # 0.2 K/mcL (0.0-0.6); Eosinophils % 1.7 %; Hematocrit 42.6 % (35.3-44.9); Hemoglobin 13.3 g/dL (11.5-15.4); Immature Granulocytes % 0.2 % (0-4); Lymphocytes # 2.9 K/mcL (0.6-4.6); Lymphocytes % 27.8 %; Mean Corpuscular HGB Conc 31.2 g/dL (31.6-35.5); Mean Corpuscular Hemoglobin 26.8 pg (28.0-33.3); Mean Corpuscular Volume 85.7 fL (83.0-100.0); Mean Platelet Volume 10.7 fL (9.4-12.4); Monocytes # 0.6 K/mcL (0.0-1.3); Monocytes % 5.8 %; Neutrophils # 6.7 K/mcL (1.6-8.9); Platelet Count 317 K/mcL (140-400); Red Blood Count 4.97 M/mcL (3.82-4.97); Red Cell Distribution Width 13.8 % (11.5-14.5); White Blood Count 10.5 K/mcL (4.3-11.1)
[2020-04-02] MEDS: *HR* HYDROcodone/Acet 5/325 mg TABLET PO PRN ×2 (01:00→07:55)
[2020-04-02 01:20] LABS: BUN/Creatinine Ratio 21 (6-26); Blood Urea Nitrogen 19 mg/dL (6-20); Calcium 8.4 mg/dL (8.6-10.3); Carbon Dioxide 26 mEq/L (23-29); Chloride 97 mEq/L (98-107); Glucose 559 mg/dL (70-105); Magnesium 1.6 mg/dL (1.6-2.6); Osmolality,Calculated 308 (280-300); Phosphorous 3.9 mg/dL (2.7-4.5); Potassium 3.6 mEq/L (3.5-5.1); Sodium 135 mEq/L (136-145); eGFR For African Americans > 60 (> 60); eGFR For Non-African Americans > 60 (> 60)
[2020-04-02] MEDS ORDERED: Insulin Human Regular 10 UNIT in 0.9 % Sodium Chloride 10 ML IV ONE (01:34)
[2020-04-02] MEDS ORDERED: Insulin LISPRO 300 UNITS/3 ML VIAL SQ ONE (01:35)
[2020-04-02] MEDS: Aspirin Enteric Coated 81 MG Tablet PO SCH (07:55)
[2020-04-02] MEDS: Metoprolol XL (24 HR) Succ 50 MG TAB.ER.24H PO SCH (07:55)
[2020-04-02] MEDS: lisinopriL 5 MG TABLET PO SCH (07:55)
[2020-04-02] MEDS: Gabapentin 400 MG CAPSULE PO SCH (07:55)
[2020-04-02] MEDS: Furosemide 40 MG/4 ML VIAL IVP SCH (07:55)
[2020-04-02] MEDS: Sucralfate 1 GM TABLET PO SCH ×2 (07:55→11:29)
[2020-04-02] MEDS: *HR* Dabigatran 150 MG CAPSULE PO SCH (07:55)
[2020-04-02] MEDS: Insulin LISPRO 300 UNITS/3 ML VIAL SQ SCH ×4 (07:56→11:31)
[2020-04-02] MEDS ORDERED: Insulin DETEMIR 100 UNIT/ML X5UNITS SQ SCH (09:00)
[2020-04-02 11:11] VITALS: BP 118/81
== END 2020-04-02 12:44 | disposition home or self-care (01) | DRG 292 ==
LOC: EMEROOARM 07:03 → 2ANU 07:03 → SUATTDRO 09:20 → 2ANU 10:05
PROVIDERS: ADMIT Internal Medicine; ATTEND Internal Medicine

== ENCOUNTER 2020-04-06 21:34 | Observation (INO) ==
[2020-04-06 21:58] LABS: Basophils # 0.1 K/mcL (0.0-0.2); Basophils % 0.5 %; Eosinophils # 0.1 K/mcL (0.0-0.6); Eosinophils % 1.2 %; Hematocrit 39.7 % (35.3-44.9); Hemoglobin 12.9 g/dL (11.5-15.4); Immature Granulocytes % 0.2 % (0-4); Lymphocytes # 2.9 K/mcL (0.6-4.6); Lymphocytes % 31.6 %; Mean Corpuscular HGB Conc 32.5 g/dL (31.6-35.5); Mean Corpuscular Volume 83.1 fL (83.0-100.0); Mean Platelet Volume 10.7 fL (9.4-12.4); Monocytes # 0.4 K/mcL (0.0-1.3); Monocytes % 4.4 %; Neutrophils # 5.7 K/mcL (1.6-8.9); Platelet Count 276 K/mcL (140-400); Red Blood Count 4.78 M/mcL (3.82-4.97); Red Cell Distribution Width 13.3 % (11.5-14.5); Segmented Neutrophils % 62.1 %; White Blood Count 9.2 K/mcL (4.3-11.1)
[2020-04-06 22:16] LABS: Alanine Aminotransferase 16 Units/L (7-52); Albumin 4.1 g/dL (3.5-5.7); Albumin/Globulin Ratio 1.6 (1.1-2.2); Alkaline Phosphatase 128 Units/L (34-104); Aspartate Amino Transferase 15 Units/L (13-39); BUN/Creatinine Ratio 25 (6-26); Bilirubin,Total 0.4 mg/dL (0.3-1.0); Blood Urea Nitrogen 18 mg/dL (6-20); Calcium 9.3 mg/dL (8.6-10.3); Carbon Dioxide 23 mEq/L (23-29); Chloride 104 mEq/L (98-107); Globulin 2.6 g/dL (2.4-3.5); Glucose 238 mg/dL (70-105); Osmolality,Calculated 298 (280-300); Potassium 3.6 mEq/L (3.5-5.1); Sodium 139 mEq/L (136-145); Total Protein 6.7 g/dL (6.4-8.9); Troponin I < 0.03 ng/mL (< 0.04); eGFR For African Americans > 60 (> 60); eGFR For Non-African Americans > 60 (> 60)
[2020-04-06 22:25] LABS: Bilirubin,Urine Negative (Negative); Blood,Urine Negative (Negative); Clarity,Urine Clear (Clear); Color,Urine Light-Yellow (Yellow); Glucose,Urine (UA) 300 mg/dL (Normal); Ketones,Urine Negative (Negative); Leukocyte Esterase,Urine Trace (Negative); Mucus,Urine Few per lpf (None-Few); Nitrite,Urine Negative (Negative); Protein,Urine Trace mg/dL (Neg-Trace); RBC,Urine 0-3 per hpf (0-3); Specific Gravity,Urine 1.025 (1.010-1.025); Squamous Epithelial Cell,Urine Moderate per hpf (None-Few); WBC,Urine 0-3 per hpf (0-3)
[2020-04-06] MEDS ORDERED: cefTRIAXone 1,000 MG in 0.9 % Sodium Chloride Mini Bag 100 ML IVPB ONE (23:36)
[2020-04-06] MEDS ORDERED: Furosemide 40 MG/4 ML VIAL IVP ONE (23:50)
[2020-04-07] MEDS ORDERED: cefTRIAXone 1,000 MG in Water for inj. (sterile) 10 ML IVPB ONE (01:00)
[2020-04-07 01:41] LABS: Adenovirus Not Detected (Not Detect); Bordetella Pertussis Not Detected (Not Detect); Chlamydophila pneumoniae Not Detected (Not Detect); Coronavirus 229E Not Detected (Not Detect); Coronavirus HKU1 Not Detected (Not Detect); Coronavirus NL63 Not Detected (Not Detect); Coronavirus OC43 Not Detected (Not Detect); Human Metapneumovirus Not Detected (Not Detect); Human Rhinovirus/Enterovirus Not Detected (Not Detect); Influenza A Subtype 2009 H1 Not Detected (Not Detect); Influenza B Not Detected (Not Detect); Mycoplasma pneumoniae Not Detected (Not Detect); Parainfluenza Virus 1 Not Detected (Not Detect); Parainfluenza Virus 2 Not Detected (Not Detect); Parainfluenza Virus 3 Not Detected (Not Detect); Parainfluenza Virus 4 Not Detected (Not Detect); Respiratory Syncytial Virus Not Detected (Not Detect); SARS-CoV-2 Not Detected (Not Detect)
[2020-04-07 05:48] LABS: BUN/Creatinine Ratio 31 (6-26); Blood Urea Nitrogen 20 mg/dL (6-20); Calcium 9.4 mg/dL (8.6-10.3); Carbon Dioxide 24 mEq/L (23-29); Chloride 105 mEq/L (98-107); Glucose 290 mg/dL (70-105); Osmolality,Calculated 301 (280-300); Potassium 3.7 mEq/L (3.5-5.1); Sodium 139 mEq/L (136-145); eGFR For African Americans > 60 (> 60); eGFR For Non-African Americans > 60 (> 60)
[2020-04-07 05:54] LABS: Basophils % 0.6 %; Eosinophils # 0.1 K/mcL (0.0-0.6); Eosinophils % 1.1 %; Hematocrit 38.4 % (35.3-44.9); Hemoglobin 12.4 g/dL (11.5-15.4); Immature Granulocytes % 0.3 % (0-4); Lymphocytes # 2.4 K/mcL (0.6-4.6); Lymphocytes % 33.5 %; Mean Corpuscular HGB Conc 32.3 g/dL (31.6-35.5); Mean Corpuscular Hemoglobin 26.7 pg (28.0-33.3); Mean Corpuscular Volume 82.8 fL (83.0-100.0); Mean Platelet Volume 12.1 fL (9.4-12.4); Monocytes # 0.3 K/mcL (0.0-1.3); Monocytes % 4.3 %; Neutrophils # 4.3 K/mcL (1.6-8.9); Platelet Count 221 K/mcL (140-400); Red Blood Count 4.64 M/mcL (3.82-4.97); Red Cell Distribution Width 13.6 % (11.5-14.5); Segmented Neutrophils % 60.2 %; White Blood Count 7.1 K/mcL (4.3-11.1)
[2020-04-07] MEDS: clonazePAM 0.5 MG TABLET PO PRN ×2 (06:07→20:56)
[2020-04-07] MEDS ORDERED: *HR* Dextrose 50 % in Water (Vial) 50 ML VIAL IVP PRN (06:12)
[2020-04-07] MEDS ORDERED: Dextrose Gel 15 GM/37.5 ML TUBE PO PRN ×2 (06:12)
[2020-04-07] MEDS ORDERED: D5% in Water 1,000 ML IVC PRN (06:12)
[2020-04-07] MEDS ORDERED: Insulin DETEMIR 100 UNIT/ML X5UNITS SQ SCH (06:15)
[2020-04-07] MEDS: Sucralfate 1 GM TABLET PO SCH ×4 (08:28→20:57)
[2020-04-07] MEDS: Metoprolol XL (24 HR) Succ 50 MG TAB.ER.24H PO SCH ×2 (08:28→20:57)
[2020-04-07] MEDS: Aspirin Enteric Coated 81 MG Tablet PO SCH (08:29)
[2020-04-07] MEDS: *HR* Dabigatran 150 MG CAPSULE PO SCH ×2 (08:29→20:53)
[2020-04-07] MEDS: Gabapentin 400 MG CAPSULE PO SCH ×3 (08:29→20:56)
[2020-04-07] MEDS ORDERED: lisinopriL 5 MG TABLET PO SCH (09:00)
[2020-04-07] MEDS ORDERED: Furosemide 40 MG/4 ML VIAL IVP SCH (09:00)
[2020-04-07] MEDS ORDERED: Insulin LISPRO 300 UNITS/3 ML VIAL SQ SCH ×3 (11:30→21:00)
[2020-04-07] MEDS: Insulin DETEMIR 100 UNIT/ML X5UNITS SQ SCH ×2 (11:31→21:02)
[2020-04-07] MEDS: tiZANidine 4 MG TABLET PO PRN (11:37)
[2020-04-07] MEDS ORDERED: Acetaminophen 325 MG TABLET PO PRN (14:47)
[2020-04-07] MEDS: Insulin LISPRO 300 UNITS/3 ML VIAL SQ SCH ×2 (17:22)
[2020-04-07] MEDS ORDERED: metOLazone 2.5 MG TABLET PO ONE (19:54)
[2020-04-07] MEDS: Furosemide 40 MG/4 ML VIAL IVP SCH (20:52)
[2020-04-08] MEDS ORDERED: 0.9 % Sodium Chloride 1,000 ML IVC SCH (04:00)
[2020-04-08 06:24] LABS: BUN/Creatinine Ratio 26 (6-26); Blood Urea Nitrogen 26 mg/dL (6-20); Calcium 9.8 mg/dL (8.6-10.3); Carbon Dioxide 27 mEq/L (23-29); Chloride 98 mEq/L (98-107); Glucose 373 mg/dL (70-105); Magnesium 1.5 mg/dL (1.6-2.6); Osmolality,Calculated 302 (280-300); Sodium 136 mEq/L (136-145); eGFR For African Americans > 60 (> 60); eGFR For Non-African Americans 58 (> 60)
[2020-04-08] MEDS ORDERED: Insulin DETEMIR 100 UNIT/ML X5UNITS SQ ONE (08:53)
[2020-04-08] MEDS: *HR* Dabigatran 150 MG CAPSULE PO SCH (08:57)
[2020-04-08] MEDS: Metoprolol XL (24 HR) Succ 50 MG TAB.ER.24H PO SCH (08:57)
[2020-04-08] MEDS: Gabapentin 400 MG CAPSULE PO SCH ×2 (08:57→14:41)
[2020-04-08] MEDS: Sucralfate 1 GM TABLET PO SCH ×3 (08:58→17:11)
[2020-04-08] MEDS: Aspirin Enteric Coated 81 MG Tablet PO SCH (08:58)
[2020-04-08] MEDS: Insulin LISPRO 300 UNITS/3 ML VIAL SQ SCH ×6 (08:58→17:11)
[2020-04-08] MEDS ORDERED: Insulin DETEMIR 100 UNIT/ML X5UNITS SQ SCH ×2 (09:00→09:12)
[2020-04-08] MEDS ORDERED: Insulin LISPRO 300 UNITS/3 ML VIAL SQ SCH (09:18)
[2020-04-08] MEDS: Furosemide 40 MG/4 ML VIAL IVP SCH (09:51)
[2020-04-08] MEDS: tiZANidine 4 MG TABLET PO PRN (14:41)
[2020-04-08 17:10] VITALS: BP 111/74
== END 2020-04-08 18:21 | disposition left against medical advice (07) ==
LOC: 2ANU 21:34 → EMEROOARM 21:34 → 2ANU 04-07 02:12
PROVIDERS: ADMIT Student in an Organized Health Care Education/Training Program; ATTEND Student in an Organized Health Care Education/Training Program

== ENCOUNTER 2020-04-12 14:29 | Inpatient (IN) ==
[2020-04-12 15:57] LABS: Basophils % 0.4 %; Eosinophils # 0.1 K/mcL (0.0-0.6); Eosinophils % 1.1 %; Hematocrit 41.7 % (35.3-44.9); Immature Granulocytes % 0.3 % (0-4); Lymphocytes # 1.9 K/mcL (0.6-4.6); Lymphocytes % 21.6 %; Mean Corpuscular HGB Conc 31.2 g/dL (31.6-35.5); Mean Corpuscular Hemoglobin 26.6 pg (28.0-33.3); Mean Corpuscular Volume 85.3 fL (83.0-100.0); Mean Platelet Volume 11.3 fL (9.4-12.4); Monocytes # 0.5 K/mcL (0.0-1.3); Monocytes % 5.7 %; Neutrophils # 6.3 K/mcL (1.6-8.9); Platelet Count 363 K/mcL (140-400); Red Blood Count 4.89 M/mcL (3.82-4.97); Red Cell Distribution Width 13.7 % (11.5-14.5); Segmented Neutrophils % 70.9 %
[2020-04-12 16:04] LABS: INR 1.4; Prothrombin Time 15.9 Seconds (9.4-12.1)
[2020-04-12 16:07] LABS: Activated Partial Thrombo Time 70.8 Seconds (26.0-36.0)
[2020-04-12 16:16] LABS: Calcium 10.2 mg/dL (8.6-10.3); Potassium 4.6 mEq/L (3.5-5.1); Troponin I 0.03 ng/mL (< 0.04)
[2020-04-12] MEDS ORDERED: levoFLOXacin 750 MG/150 ML 750 MG/150 ML BAG IVPB ONE (17:18)
[2020-04-12] MEDS ORDERED: Morphine Sulfate 2 MG/ML SYRINGE IVP ONE (17:29)
[2020-04-12] MEDS ORDERED: Aspirin 81 MG TAB.CHEW PO SCH (17:30)
[2020-04-12] MEDS ORDERED: Naloxone 0.4 MG/ML INJ IVP PRN (17:41)
[2020-04-12 17:49] LABS: Adenovirus Not Detected (Not Detect); Bordetella Pertussis Not Detected (Not Detect); Chlamydophila pneumoniae Not Detected (Not Detect); Coronavirus 229E Not Detected (Not Detect); Coronavirus HKU1 Not Detected (Not Detect); Coronavirus NL63 Not Detected (Not Detect); Coronavirus OC43 Not Detected (Not Detect); Human Metapneumovirus Not Detected (Not Detect); Human Rhinovirus/Enterovirus Not Detected (Not Detect); Influenza A Subtype 2009 H1 Not Detected (Not Detect); Influenza B Not Detected (Not Detect); Mycoplasma pneumoniae Not Detected (Not Detect); Parainfluenza Virus 1 Not Detected (Not Detect); Parainfluenza Virus 2 Not Detected (Not Detect); Parainfluenza Virus 3 Not Detected (Not Detect); Parainfluenza Virus 4 Not Detected (Not Detect); Respiratory Syncytial Virus Not Detected (Not Detect); SARS-CoV-2 Not Detected (Not Detect)
[2020-04-12] MEDS ORDERED: *HR* Dextrose 50 % in Water (Vial) 50 ML VIAL IVP PRN (18:25)
[2020-04-12] MEDS ORDERED: D5% in Water 1,000 ML IVC PRN (18:25)
[2020-04-12] MEDS ORDERED: Dextrose Gel 15 GM/37.5 ML TUBE PO PRN ×2 (18:25)
[2020-04-12] MEDS ORDERED: Ipratropium/Albuterol Neb 3 ML IH PRN (18:26)
[2020-04-12] MEDS ORDERED: 0.9 % Sodium Chloride 1,000 ML IVC SCH (18:45)
[2020-04-12] MEDS: Insulin DETEMIR 100 UNIT/ML X5UNITS SQ SCH (20:03)
[2020-04-12] MEDS: clonazePAM 0.5 MG TABLET PO SCH (20:40)
[2020-04-12] MEDS: Ondansetron 4 MG/2 ML VIAL IVP PRN (20:40)
[2020-04-12] MEDS: *HR* Dabigatran 150 MG CAPSULE PO SCH (20:40)
[2020-04-12] MEDS: Metoprolol XL (24 HR) Succ 50 MG TAB.ER.24H PO SCH (21:24)
[2020-04-12] MEDS: *HR* OxyCODONE Immed Rel 5 MG TABLET PO PRN (22:32)
[2020-04-12] MEDS: Insulin LISPRO 300 UNITS/3 ML VIAL SQ SCH (22:42)
[2020-04-13 02:24] LABS: Immature Granulocytes % 0.3 % (0-4); Red Cell Distribution Width 13.6 % (11.5-14.5)
[2020-04-13 02:29] LABS: Basophils % 0.6 %; Eosinophils # 0.1 K/mcL (0.0-0.6); Eosinophils % 1.8 %; Hematocrit 40.7 % (35.3-44.9); Hemoglobin 12.1 g/dL (11.5-15.4); Lymphocytes # 2.6 K/mcL (0.6-4.6); Lymphocytes % 38.2 %; Mean Corpuscular HGB Conc 29.7 g/dL (31.6-35.5); Mean Corpuscular Hemoglobin 26.8 pg (28.0-33.3); Mean Platelet Volume 10.8 fL (9.4-12.4); Monocytes # 0.5 K/mcL (0.0-1.3); Monocytes % 7.9 %; Neutrophils # 3.4 K/mcL (1.6-8.9); Platelet Count 264 K/mcL (140-400); Red Blood Count 4.52 M/mcL (3.82-4.97); Segmented Neutrophils % 51.2 %; White Blood Count 6.7 K/mcL (4.3-11.1)
[2020-04-13 03:11] LABS: Folate > 22.3 ng/mL (3.0-16.0); Vitamin B12 266 pg/mL (250-1100)
[2020-04-13 03:20] LABS: Chol/HDL Ratio 6.4 (0-4.9); Magnesium 1.9 mg/dL (1.6-2.6); Phosphorous 4.2 mg/dL (2.7-4.5); Potassium 4.2 mEq/L (3.5-5.1)
[2020-04-13] MEDS ORDERED: 0.9 % Sodium Chloride 500 ML IVC ONE (03:48)
[2020-04-13] MEDS ORDERED: Acetaminophen IV 1,000 MG/100 ML INFUS..BTL IVPB ONE (04:11)
[2020-04-13] MEDS ORDERED: 0.9 % Sodium Chloride 1,000 ML IVC SCH (05:11)
[2020-04-13] MEDS ORDERED: tiZANidine 4 MG TABLET PO PRN (08:27)
[2020-04-13] MEDS ORDERED: Aspirin Enteric Coated 81 MG Tablet PO SCH (09:00)
[2020-04-13] MEDS ORDERED: levoFLOXacin 750 MG/150 ML 750 MG/150 ML BAG IVPB SCH (09:00)
[2020-04-13] MEDS ORDERED: Metoprolol XL (24 HR) Succ 50 MG TAB.ER.24H PO SCH (09:00)
[2020-04-13] MEDS: Insulin DETEMIR 100 UNIT/ML X5UNITS SQ SCH ×2 (09:49→20:38)
[2020-04-13] MEDS: Insulin LISPRO 300 UNITS/3 ML VIAL SQ SCH ×4 (09:49→20:39)
[2020-04-13] MEDS: *HR* OxyCODONE Immed Rel 5 MG TABLET PO PRN (09:50)
[2020-04-13] MEDS: *HR* Dabigatran 150 MG CAPSULE PO SCH ×2 (09:50→20:38)
[2020-04-13] MEDS: Metoprolol XL (24 HR) Succ 50 MG TAB.ER.24H PO SCH ×2 (09:50→20:38)
[2020-04-13] MEDS: Aspirin 81 MG TAB.CHEW PO SCH (09:50)
[2020-04-13] MEDS ORDERED: Isovue-370 500 ML BOTTLE IVP ONE (12:10)
[2020-04-13] MEDS: Gabapentin 400 MG CAPSULE PO SCH ×3 (12:34→20:38)
[2020-04-13] MEDS: Sucralfate 1 GM TABLET PO SCH ×3 (12:35→20:38)
[2020-04-13] MEDS: Ondansetron 4 MG/2 ML VIAL IVP PRN (12:45)
[2020-04-13 13:05] LABS: Bilirubin,Urine Negative (Negative); Blood,Urine Negative (Negative); Clarity,Urine Clear (Clear); Color,Urine Colorless (Yellow); Glucose,Urine (UA) >=1000 mg/dL (Normal); Ketones,Urine Negative (Negative); Leukocyte Esterase,Urine Negative (Negative); Nitrite,Urine Negative (Negative); Protein,Urine Negative (Neg-Trace); RBC,Urine 0-3 per hpf (0-3); Specific Gravity,Urine 1.015 (1.010-1.025); Squamous Epithelial Cell,Urine Few per hpf (None-Few); Urobilinogen,Urine Normal (Normal)
[2020-04-13] MEDS ORDERED: Prochlorperazine 10 MG/2 ML VIAL IVP PRN (13:56)
[2020-04-13] MEDS ORDERED: Cefepime HCl 1,000 MG in Water for inj. (sterile) 10 ML IVP SCH (16:00)
[2020-04-13] MEDS: Pantoprazole 40 MG VIAL IVP SCH (17:05)
[2020-04-13] MEDS: Cefepime HCl 2,000 MG in Water for inj. (sterile) 20 ML IVP SCH (17:06)
[2020-04-13] MEDS: Isosorbide MONOnitrate (24 HR) 30 MG TAB.ER.24H PO SCH (17:06)
[2020-04-13] MEDS: clonazePAM 0.5 MG TABLET PO SCH (20:38)
[2020-04-14 03:27] LABS: Hematocrit 39.7 % (35.3-44.9); Hemoglobin 12.6 g/dL (11.5-15.4); Mean Corpuscular HGB Conc 31.7 g/dL (31.6-35.5); Mean Corpuscular Hemoglobin 27.7 pg (28.0-33.3); Mean Corpuscular Volume 87.3 fL (83.0-100.0); Mean Platelet Volume 10.9 fL (9.4-12.4); Platelet Count 293 K/mcL (140-400); Red Blood Count 4.55 M/mcL (3.82-4.97); Red Cell Distribution Width 13.5 % (11.5-14.5); White Blood Count 7.3 K/mcL (4.3-11.1)
[2020-04-14 03:38] LABS: BUN/Creatinine Ratio 28 (6-26); Blood Urea Nitrogen 23 mg/dL (6-20); Calcium 9.4 mg/dL (8.6-10.3); Carbon Dioxide 22 mEq/L (23-29); Chloride 105 mEq/L (98-107); Glucose 251 mg/dL (70-105); Osmolality,Calculated 296 (280-300); Potassium 4.4 mEq/L (3.5-5.1); Sodium 137 mEq/L (136-145); eGFR For African Americans > 60 (> 60); eGFR For Non-African Americans > 60 (> 60)
[2020-04-14] MEDS: Pantoprazole 40 MG VIAL IVP SCH (04:46)
[2020-04-14] MEDS: Cefepime HCl 2,000 MG in Water for inj. (sterile) 20 ML IVP SCH (04:46)
[2020-04-14] MEDS ORDERED: Regadenoson 0.4 MG/5 ML SYRINGE IVP ONE (06:17)
[2020-04-14] MEDS: Sucralfate 1 GM TABLET PO SCH ×3 (10:35→16:39)
[2020-04-14] MEDS: Isosorbide MONOnitrate (24 HR) 30 MG TAB.ER.24H PO SCH (10:35)
[2020-04-14] MEDS: Aspirin 81 MG TAB.CHEW PO SCH (10:35)
[2020-04-14] MEDS: Gabapentin 400 MG CAPSULE PO SCH ×2 (10:35→16:39)
[2020-04-14] MEDS: Metoprolol XL (24 HR) Succ 50 MG TAB.ER.24H PO SCH (10:35)
[2020-04-14] MEDS: *HR* Dabigatran 150 MG CAPSULE PO SCH (10:35)
[2020-04-14] MEDS: Insulin LISPRO 300 UNITS/3 ML VIAL SQ SCH ×2 (10:37→10:46)
[2020-04-14] MEDS: Insulin DETEMIR 100 UNIT/ML X5UNITS SQ SCH (10:38)
[2020-04-14 15:06] VITALS: BP 166/79
[2020-04-14] MEDS ORDERED: Insulin LISPRO 300 UNITS/3 ML VIAL SQ SCH ×2 (15:33)
== END 2020-04-14 16:40 | disposition home or self-care (01) | DRG 311 ==
LOC: EMEROOARM 14:29 → 2ANU 14:29 → SUATTDRO 19:45 → 2ANU 20:13 → SUATTDRO 04-13 14:44
PROVIDERS: ADMIT Pharmacist; ATTEND Internal Medicine

== ENCOUNTER 2020-05-01 14:36 | Observation (INO) ==
[2020-05-01 16:05] LABS: Basophils % 0.3 %; Eosinophils # 0.1 K/mcL (0.0-0.6); Eosinophils % 1.4 %; Hematocrit 36.5 % (35.3-44.9); Hemoglobin 11.5 g/dL (11.5-15.4); Immature Granulocytes % 0.3 % (0-4); Lymphocytes # 1.3 K/mcL (0.6-4.6); Lymphocytes % 19.6 %; Mean Corpuscular HGB Conc 31.5 g/dL (31.6-35.5); Mean Corpuscular Hemoglobin 26.9 pg (28.0-33.3); Mean Corpuscular Volume 85.5 fL (83.0-100.0); Mean Platelet Volume 10.1 fL (9.4-12.4); Monocytes # 0.3 K/mcL (0.0-1.3); Monocytes % 4.6 %; Neutrophils # 4.8 K/mcL (1.6-8.9); Platelet Count 234 K/mcL (140-400); Red Blood Count 4.27 M/mcL (3.82-4.97); Red Cell Distribution Width 14.8 % (11.5-14.5); Segmented Neutrophils % 73.8 %; White Blood Count 6.5 K/mcL (4.3-11.1)
[2020-05-01 16:21] LABS: BUN/Creatinine Ratio 14 (6-26); Blood Urea Nitrogen 10 mg/dL (6-20); Calcium 9.5 mg/dL (8.6-10.3); Carbon Dioxide 25 mEq/L (23-29); Chloride 108 mEq/L (98-107); Glucose 267 mg/dL (70-105); Osmolality,Calculated 302 (280-300); Potassium 3.6 mEq/L (3.5-5.1); Sodium 142 mEq/L (136-145); Troponin I < 0.03 ng/mL (< 0.04); eGFR For African Americans > 60 (> 60); eGFR For Non-African Americans > 60 (> 60)
[2020-05-01] MEDS ORDERED: 0.9 % Sodium Chloride 1,000 ML IVC STA (16:58)
[2020-05-01] MEDS ORDERED: Aspirin 81 MG TAB.CHEW PO STA (16:58)
[2020-05-01] MEDS ORDERED: Naloxone 0.4 MG/ML INJ IVP PRN (18:10)
[2020-05-01] MEDS ORDERED: Ondansetron 4 MG/2 ML VIAL IVP PRN (18:10)
[2020-05-01] MEDS ORDERED: *HR* HYDROcodone/Acet 5/325 mg TABLET PO PRN (18:10)
[2020-05-01] MEDS ORDERED: *HR* Dextrose 50 % in Water (Vial) 50 ML VIAL IVP PRN (18:12)
[2020-05-01] MEDS ORDERED: Dextrose Gel 15 GM/37.5 ML TUBE PO PRN ×2 (18:12)
[2020-05-01] MEDS ORDERED: D5% in Water 1,000 ML IVC PRN (18:12)
[2020-05-01] MEDS: Metoprolol XL (24 HR) Succ 50 MG TAB.ER.24H PO SCH (20:54)
[2020-05-01] MEDS: Gabapentin 400 MG CAPSULE PO SCH (20:54)
[2020-05-01] MEDS: *HR* Dabigatran 150 MG CAPSULE PO SCH (20:54)
[2020-05-01] MEDS: Sucralfate 1 GM TABLET PO SCH (20:55)
[2020-05-01] MEDS: clonazePAM 0.5 MG TABLET PO PRN (21:00)
[2020-05-01] MEDS ORDERED: Acetaminophen 325 MG TABLET PO PRN (21:19)
[2020-05-01] MEDS: Levalbuterol Neb 0.63 MG/3 ML IH SCH (22:29)
[2020-05-01] MEDS: Insulin DETEMIR 100 UNIT/ML X5UNITS SQ SCH (22:53)
[2020-05-02] MEDS: Melatonin 3 MG TABLET PO PRN ×2 (00:45→21:58)
[2020-05-02 03:25] LABS: Basophils % 0.4 %; Eosinophils # 0.2 K/mcL (0.0-0.6); Eosinophils % 2.4 %; Hematocrit 35.4 % (35.3-44.9); Hemoglobin 10.9 g/dL (11.5-15.4); Immature Granulocytes % 0.3 % (0-4); Lymphocytes % 29.3 %; Mean Corpuscular HGB Conc 30.8 g/dL (31.6-35.5); Mean Corpuscular Hemoglobin 26.8 pg (28.0-33.3); Mean Platelet Volume 10.2 fL (9.4-12.4); Monocytes # 0.4 K/mcL (0.0-1.3); Monocytes % 5.9 %; Neutrophils # 4.2 K/mcL (1.6-8.9); Platelet Count 242 K/mcL (140-400); Red Blood Count 4.07 M/mcL (3.82-4.97); Red Cell Distribution Width 14.7 % (11.5-14.5); Segmented Neutrophils % 61.7 %; White Blood Count 6.7 K/mcL (4.3-11.1)
[2020-05-02 03:40] LABS: BUN/Creatinine Ratio 12 (6-26); Blood Urea Nitrogen 9 mg/dL (6-20); Calcium 8.3 mg/dL (8.6-10.3); Carbon Dioxide 21 mEq/L (23-29); Chloride 109 mEq/L (98-107); Glucose 303 mg/dL (70-105); Magnesium 1.5 mg/dL (1.6-2.6); Osmolality,Calculated 300 (280-300); Phosphorous 3.6 mg/dL (2.7-4.5); Potassium 3.4 mEq/L (3.5-5.1); Sodium 140 mEq/L (136-145); Troponin I < 0.03 ng/mL (< 0.04); eGFR For African Americans > 60 (> 60); eGFR For Non-African Americans > 60 (> 60)
[2020-05-02] MEDS: Levalbuterol Neb 0.63 MG/3 ML IH SCH ×2 (08:16→21:12)
[2020-05-02] MEDS: Insulin LISPRO 300 UNITS/3 ML VIAL SQ SCH ×3 (08:24→17:58)
[2020-05-02] MEDS: *HR* Dabigatran 150 MG CAPSULE PO SCH ×2 (08:25→21:59)
[2020-05-02] MEDS: Metoprolol XL (24 HR) Succ 50 MG TAB.ER.24H PO SCH ×2 (08:26→21:58)
[2020-05-02] MEDS: Gabapentin 400 MG CAPSULE PO SCH ×3 (08:26→21:59)
[2020-05-02] MEDS: Aspirin Enteric Coated 81 MG Tablet PO SCH (08:26)
[2020-05-02] MEDS: Isosorbide MONOnitrate (24 HR) 30 MG TAB.ER.24H PO SCH (08:26)
[2020-05-02] MEDS: Sucralfate 1 GM TABLET PO SCH (08:26)
[2020-05-02] MEDS: Insulin DETEMIR 100 UNIT/ML X5UNITS SQ SCH ×2 (08:27→21:59)
[2020-05-02] MEDS ORDERED: tiZANidine 4 MG TABLET PO PRN (09:04)
[2020-05-02] MEDS ORDERED: Insulin DETEMIR 100 UNIT/ML X5UNITS SQ ONE (09:30)
[2020-05-02] MEDS ORDERED: Potassium Chloride Elixir 20 MEQ/15 ML UDC PO ONE (09:58)
[2020-05-02] MEDS: hydrOXYzine pamoate 25 MG CAPSULE PO SCH (16:17)
[2020-05-02] MEDS: amLODIPine 5 MG TABLET PO SCH (16:17)
[2020-05-02] MEDS: clonazePAM 0.5 MG TABLET PO PRN (21:58)
[2020-05-03] MEDS: hydrOXYzine pamoate 25 MG CAPSULE PO SCH ×3 (00:07→16:14)
[2020-05-03] MEDS: amLODIPine 5 MG TABLET PO SCH (08:39)
[2020-05-03] MEDS: Isosorbide MONOnitrate (24 HR) 30 MG TAB.ER.24H PO SCH (08:39)
[2020-05-03] MEDS: Aspirin Enteric Coated 81 MG Tablet PO SCH (08:39)
[2020-05-03] MEDS: *HR* Dabigatran 150 MG CAPSULE PO SCH (08:39)
[2020-05-03] MEDS: Metoprolol XL (24 HR) Succ 50 MG TAB.ER.24H PO SCH (08:39)
[2020-05-03] MEDS: Gabapentin 400 MG CAPSULE PO SCH ×2 (08:39→16:13)
[2020-05-03] MEDS: Insulin LISPRO 300 UNITS/3 ML VIAL SQ SCH ×2 (08:39→12:17)
[2020-05-03] MEDS: Insulin DETEMIR 100 UNIT/ML X5UNITS SQ SCH (08:42)
[2020-05-03] MEDS ORDERED: lisinopriL 5 MG TABLET PO SCH (09:00)
[2020-05-03] MEDS ORDERED: Furosemide 40 MG TABLET PO SCH (09:00)
[2020-05-03] MEDS: Levalbuterol Neb 0.63 MG/3 ML IH SCH (09:34)
[2020-05-03 10:34] LABS: Hematocrit 36.1 % (35.3-44.9); Hemoglobin 11.5 g/dL (11.5-15.4); Mean Corpuscular HGB Conc 31.9 g/dL (31.6-35.5); Mean Corpuscular Hemoglobin 28.1 pg (28.0-33.3); Mean Corpuscular Volume 88.3 fL (83.0-100.0); Mean Platelet Volume 10.1 fL (9.4-12.4); Platelet Count 269 K/mcL (140-400); Red Blood Count 4.09 M/mcL (3.82-4.97); Red Cell Distribution Width 14.9 % (11.5-14.5); White Blood Count 7.5 K/mcL (4.3-11.1)
[2020-05-03 10:55] LABS: BUN/Creatinine Ratio 16 (6-26); Blood Urea Nitrogen 12 mg/dL (6-20); Calcium 9.7 mg/dL (8.6-10.3); Carbon Dioxide 25 mEq/L (23-29); Chloride 106 mEq/L (98-107); Glucose 189 mg/dL (70-105); Magnesium 1.6 mg/dL (1.6-2.6); Osmolality,Calculated 293 (280-300); Potassium 3.9 mEq/L (3.5-5.1); Sodium 139 mEq/L (136-145); eGFR For African Americans > 60 (> 60); eGFR For Non-African Americans > 60 (> 60)
[2020-05-03 15:37] VITALS: BP 117/70
[2020-05-03] MEDS ORDERED: Insulin DETEMIR 100 UNIT/ML X5UNITS SQ SCH (21:00)
== END 2020-05-03 16:44 | disposition other institution (70) ==
LOC: 3BNU 14:36 → EMEROOARM 14:36 → SUATTDRO 18:50 → 3BNU 19:55
PROVIDERS: ADMIT Internal Medicine; ATTEND Internal Medicine

== ENCOUNTER 2020-05-03 16:46 | Inpatient (IN) ==
[2020-05-03] MEDS ORDERED: hydrOXYzine pamoate 25 MG CAPSULE PO PRN (17:00)
[2020-05-03] MEDS ORDERED: *HR* LORazepam 2 MG/ML VIAL IM PRN (17:00)
[2020-05-03] MEDS ORDERED: Haloperidol Lactate 5 MG/ML VIAL IM PRN (17:00)
[2020-05-03] MEDS ORDERED: traZODone 50 MG TABLET PO PRN (17:00)
[2020-05-03] MEDS ORDERED: haloperidoL 5 MG TABLET PO PRN (17:00)
[2020-05-03] MEDS ORDERED: Acetaminophen 325 MG TABLET PO PRN (17:00)
[2020-05-03] MEDS ORDERED: MOM Conc 10 ML UD.LIQ PO PRN (17:00)
[2020-05-03] MEDS ORDERED: *HR* LORazepam 1 MG TABLET PO PRN (17:00)
[2020-05-03] MEDS ORDERED: tiZANidine 4 MG TABLET PO PRN (17:03)
[2020-05-03] MEDS ORDERED: clonazePAM 0.5 MG TABLET PO PRN (17:03)
[2020-05-03] MEDS ORDERED: Dextrose Gel 15 GM/37.5 ML TUBE PO PRN ×2 (17:13)
[2020-05-03] MEDS: Metoprolol XL (24 HR) Succ 50 MG TAB.ER.24H PO SCH (21:05)
[2020-05-03] MEDS: Gabapentin 400 MG CAPSULE PO SCH (21:05)
[2020-05-03] MEDS: *HR* Dabigatran 150 MG CAPSULE PO SCH (21:06)
[2020-05-03] MEDS: Insulin DETEMIR 100 UNIT/ML X5UNITS SQ SCH (21:06)
[2020-05-04] MEDS: Mag Hydrox/Al Hydrox/Simeth 30 ML UDC PO PRN ×2 (01:19→09:31)
[2020-05-04] MEDS: Insulin LISPRO 300 UNITS/3 ML VIAL SQ SCH ×3 (08:16→16:51)
[2020-05-04] MEDS: *HR* Dabigatran 150 MG CAPSULE PO SCH ×2 (08:21→21:08)
[2020-05-04] MEDS: lisinopriL 5 MG TABLET PO SCH (08:22)
[2020-05-04] MEDS: Gabapentin 400 MG CAPSULE PO SCH ×3 (08:22→21:08)
[2020-05-04] MEDS: Metoprolol XL (24 HR) Succ 50 MG TAB.ER.24H PO SCH ×2 (08:23→21:25)
[2020-05-04] MEDS: Isosorbide MONOnitrate (24 HR) 30 MG TAB.ER.24H PO SCH (08:24)
[2020-05-04] MEDS: Furosemide 40 MG TABLET PO SCH (08:25)
[2020-05-04] MEDS: Aspirin Enteric Coated 81 MG Tablet PO SCH (08:27)
[2020-05-04] MEDS: amLODIPine 5 MG TABLET PO SCH (08:28)
[2020-05-04] MEDS: Insulin DETEMIR 100 UNIT/ML X5UNITS SQ SCH ×2 (08:32→21:12)
[2020-05-04] MEDS: Temazepam 15 MG CAPSULE PO SCH (21:08)
[2020-05-05] MEDS: Insulin LISPRO 300 UNITS/3 ML VIAL SQ SCH ×3 (08:06→16:32)
[2020-05-05] MEDS: Gabapentin 400 MG CAPSULE PO SCH ×3 (08:27→20:16)
[2020-05-05] MEDS: Furosemide 40 MG TABLET PO SCH (08:28)
[2020-05-05] MEDS: amLODIPine 5 MG TABLET PO SCH (08:28)
[2020-05-05] MEDS: Aspirin Enteric Coated 81 MG Tablet PO SCH (08:28)
[2020-05-05] MEDS: Isosorbide MONOnitrate (24 HR) 30 MG TAB.ER.24H PO SCH (08:28)
[2020-05-05] MEDS: lisinopriL 5 MG TABLET PO SCH (08:28)
[2020-05-05] MEDS: Metoprolol XL (24 HR) Succ 50 MG TAB.ER.24H PO SCH ×2 (08:28→20:16)
[2020-05-05] MEDS: *HR* Dabigatran 150 MG CAPSULE PO SCH ×2 (08:28→20:16)
[2020-05-05] MEDS: BuPROPion XL (24 HR) 150 MG TABLET PO SCH (08:28)
[2020-05-05] MEDS: Insulin DETEMIR 100 UNIT/ML X5UNITS SQ SCH ×2 (08:33→20:30)
[2020-05-05] MEDS: Temazepam 15 MG CAPSULE PO SCH (20:16)
[2020-05-06] MEDS: Aspirin Enteric Coated 81 MG Tablet PO SCH (09:13)
[2020-05-06] MEDS: BuPROPion XL (24 HR) 150 MG TABLET PO SCH (09:13)
[2020-05-06] MEDS: *HR* Dabigatran 150 MG CAPSULE PO SCH ×2 (09:14→20:48)
[2020-05-06] MEDS: Furosemide 40 MG TABLET PO SCH (09:14)
[2020-05-06] MEDS: Gabapentin 400 MG CAPSULE PO SCH ×3 (09:14→20:45)
[2020-05-06] MEDS: Insulin LISPRO 300 UNITS/3 ML VIAL SQ SCH ×3 (09:17→16:42)
[2020-05-06] MEDS: Isosorbide MONOnitrate (24 HR) 30 MG TAB.ER.24H PO SCH (09:22)
[2020-05-06] MEDS: lisinopriL 5 MG TABLET PO SCH (09:22)
[2020-05-06] MEDS: amLODIPine 5 MG TABLET PO SCH (09:22)
[2020-05-06] MEDS: Metoprolol XL (24 HR) Succ 50 MG TAB.ER.24H PO SCH ×2 (09:22→21:35)
[2020-05-06] MEDS: Insulin DETEMIR 100 UNIT/ML X5UNITS SQ SCH ×2 (09:26→21:35)
[2020-05-06] MEDS: Temazepam 15 MG CAPSULE PO SCH (20:45)
[2020-05-07] MEDS ORDERED: Nitroglycerin 0.4 MG TAB.SUBL SL STA (06:25)
[2020-05-07 07:08] LABS: BUN/Creatinine Ratio 27 (6-26); Blood Urea Nitrogen 17 mg/dL (6-20); Calcium 9.4 mg/dL (8.6-10.3); Carbon Dioxide 26 mEq/L (23-29); Chloride 105 mEq/L (98-107); Glucose 208 mg/dL (70-105); Osmolality,Calculated 294 (280-300); Potassium 3.8 mEq/L (3.5-5.1); Sodium 138 mEq/L (136-145); Troponin I < 0.03 ng/mL (< 0.04); eGFR For African Americans > 60 (> 60); eGFR For Non-African Americans > 60 (> 60)
[2020-05-07] MEDS: Insulin LISPRO 300 UNITS/3 ML VIAL SQ SCH ×2 (08:06→11:34)
[2020-05-07 09:29] VITALS: BP 115/71
[2020-05-07] MEDS: Furosemide 40 MG TABLET PO SCH (09:39)
[2020-05-07] MEDS: Isosorbide MONOnitrate (24 HR) 30 MG TAB.ER.24H PO SCH (09:39)
[2020-05-07] MEDS: Metoprolol XL (24 HR) Succ 50 MG TAB.ER.24H PO SCH (09:39)
[2020-05-07] MEDS: amLODIPine 5 MG TABLET PO SCH (09:40)
[2020-05-07] MEDS: lisinopriL 5 MG TABLET PO SCH (09:40)
[2020-05-07] MEDS: *HR* Dabigatran 150 MG CAPSULE PO SCH (09:44)
[2020-05-07] MEDS: Aspirin Enteric Coated 81 MG Tablet PO SCH (09:45)
[2020-05-07] MEDS: Gabapentin 400 MG CAPSULE PO SCH (09:45)
[2020-05-07] MEDS: BuPROPion XL (24 HR) 150 MG TABLET PO SCH (09:45)
[2020-05-07] MEDS: Insulin DETEMIR 100 UNIT/ML X5UNITS SQ SCH (09:46)
== END 2020-05-07 12:25 | disposition home or self-care (01) | DRG 885 ==
LOC: 1ANU 16:46
PROVIDERS: ADMIT Psychiatry & Neurology Forensic Psychiatry; ATTEND Psychiatry & Neurology Forensic Psychiatry

== ENCOUNTER 2020-05-22 19:31 | Observation (INO) ==
[2020-05-22] MEDS ORDERED: 0.9 % Sodium Chloride 1,000 ML IVC ONE (19:43)
[2020-05-22] MEDS ORDERED: Ondansetron 4 MG/2 ML VIAL IVP ONE (19:44)
[2020-05-22 20:25] LABS: Basophils % 0.5 %; Eosinophils # 0.1 K/mcL (0.0-0.6); Eosinophils % 1.1 %; Hematocrit 41.1 % (35.3-44.9); Immature Granulocytes % 0.2 % (0-4); Lymphocytes # 2.5 K/mcL (0.6-4.6); Lymphocytes % 28.5 %; Mean Corpuscular HGB Conc 31.6 g/dL (31.6-35.5); Mean Corpuscular Hemoglobin 26.6 pg (28.0-33.3); Mean Platelet Volume 9.9 fL (9.4-12.4); Monocytes # 0.4 K/mcL (0.0-1.3); Monocytes % 4.9 %; Neutrophils # 5.7 K/mcL (1.6-8.9); Platelet Count 307 K/mcL (140-400); Red Blood Count 4.89 M/mcL (3.82-4.97); Red Cell Distribution Width 14.3 % (11.5-14.5); Segmented Neutrophils % 64.8 %; White Blood Count 8.8 K/mcL (4.3-11.1)
[2020-05-22 20:32] LABS: INR 1.1; Prothrombin Time 12.8 Seconds (9.4-12.1)
[2020-05-22 20:35] LABS: Activated Partial Thrombo Time 47.3 Seconds (26.0-36.0)
[2020-05-22 20:47] LABS: BUN/Creatinine Ratio 12 (6-26); Blood Urea Nitrogen 9 mg/dL (6-20); Calcium 10.1 mg/dL (8.6-10.3); Carbon Dioxide 22 mEq/L (23-29); Chloride 107 mEq/L (98-107); Glucose 148 mg/dL (70-105); Magnesium 1.8 mg/dL (1.6-2.6); Osmolality,Calculated 293 (280-300); Potassium 3.3 mEq/L (3.5-5.1); Sodium 141 mEq/L (136-145); eGFR For African Americans > 60 (> 60); eGFR For Non-African Americans > 60 (> 60)
[2020-05-22 20:48] LABS: Troponin I < 0.03 ng/mL (< 0.04)
[2020-05-22] MEDS: DilTIAZem 50 MG/50 ML IV.SOLN IVC SCH (20:56)
[2020-05-22 21:00] LABS: Thyroid Stimulating Hormone 5.155 mcIU/mL (0.340-5.600)
[2020-05-22] MEDS ORDERED: Dextrose Gel 15 GM/37.5 ML TUBE PO PRN ×2 (22:09)
[2020-05-22] MEDS ORDERED: D5% in Water 1,000 ML IVC PRN (22:09)
[2020-05-22] MEDS ORDERED: *HR* Dextrose 50 % in Water (Vial) 50 ML VIAL IVP PRN (22:09)
[2020-05-22] MEDS ORDERED: Ondansetron 4 MG/2 ML VIAL IVP PRN (22:10)
[2020-05-22] MEDS ORDERED: Naloxone 0.4 MG/ML INJ IVP PRN (22:10)
[2020-05-22] MEDS ORDERED: Acetaminophen 325 MG TABLET PO PRN (22:10)
[2020-05-22] MEDS ORDERED: Insulin LISPRO 300 UNITS/3 ML VIAL SQ SCH (22:15)
[2020-05-22] MEDS ORDERED: Levalbuterol Neb 1.25 MG/3 ML IH PRN (22:52)
[2020-05-22] MEDS ORDERED: Potassium Chloride Elixir 20 MEQ/15 ML UDC PO ONE (23:11)
[2020-05-22] MEDS ORDERED: Melatonin 3 MG TABLET PO ONE (23:38)
[2020-05-23] MEDS ORDERED: Acetaminophen 325 MG TABLET PO PRN (00:51)
[2020-05-23] MEDS ORDERED: Prochlorperazine 10 MG/2 ML VIAL IVP PRN (01:04)
[2020-05-23] MEDS ORDERED: *HR* LORazepam 2 MG/ML VIAL IVP ONE (03:14)
[2020-05-23] MEDS: DilTIAZem 50 MG/50 ML IV.SOLN IVC SCH (03:41)
[2020-05-23 04:18] LABS: Hematocrit 40.6 % (35.3-44.9); Hemoglobin 12.8 g/dL (11.5-15.4); Mean Corpuscular HGB Conc 31.5 g/dL (31.6-35.5); Mean Corpuscular Hemoglobin 27.2 pg (28.0-33.3); Mean Corpuscular Volume 86.2 fL (83.0-100.0); Mean Platelet Volume 10.1 fL (9.4-12.4); Platelet Count 292 K/mcL (140-400); Red Blood Count 4.71 M/mcL (3.82-4.97); Red Cell Distribution Width 14.4 % (11.5-14.5)
[2020-05-23 04:42] LABS: BUN/Creatinine Ratio 12 (6-26); Blood Urea Nitrogen 9 mg/dL (6-20); Calcium 9.4 mg/dL (8.6-10.3); Carbon Dioxide 20 mEq/L (23-29); Chloride 109 mEq/L (98-107); Chol/HDL Ratio 4.9 (0-4.9); Cholesterol 176 mg/dL (< 200); Glucose 219 mg/dL (70-105); HDL Cholesterol 36 mg/dL (40-59); LDL Cholesterol,Calculated 111 mg/dL (< 100); Osmolality,Calculated 295 (280-300); Sodium 140 mEq/L (136-145); Triglycerides 143 mg/dL (< 150); eGFR For African Americans > 60 (> 60); eGFR For Non-African Americans > 60 (> 60)
[2020-05-23] MEDS ORDERED: Insulin LISPRO 300 UNITS/3 ML VIAL SQ SCH (07:30)
[2020-05-23 08:10] LABS: Estimated Average Glucose 229 mg/dl
[2020-05-23] MEDS ORDERED: Metoprolol XL (24 HR) Succ 50 MG TAB.ER.24H PO SCH (09:00)
[2020-05-23] MEDS ORDERED: lisinopriL 5 MG TABLET PO SCH (09:00)
[2020-05-23] MEDS ORDERED: Furosemide 40 MG TABLET PO SCH (09:00)
[2020-05-23] MEDS ORDERED: Isosorbide MONOnitrate (24 HR) 30 MG TAB.ER.24H PO SCH (09:00)
[2020-05-23] MEDS ORDERED: Aspirin Enteric Coated 81 MG Tablet PO SCH (09:00)
[2020-05-23] MEDS ORDERED: amLODIPine 5 MG TABLET PO SCH (09:00)
[2020-05-23] MEDS ORDERED: *HR* Dabigatran 150 MG CAPSULE PO SCH (09:00)
[2020-05-23 12:43] VITALS: BP 113/72
== END 2020-05-23 14:32 | disposition home or self-care (01) ==
LOC: EMEROOARM 19:31 → 3BNU 19:31 → SUATTDRO 21:34 → 3BNU 22:27
PROVIDERS: ADMIT Internal Medicine; ATTEND Internal Medicine

== ENCOUNTER 2020-06-06 12:00 | Observation (INO) ==
[2020-06-06] MEDS ORDERED: Ondansetron 4 MG/2 ML VIAL IVP ONE (12:05)
[2020-06-06] MEDS ORDERED: *HR* HYDROmorphone (PF) 1 MG/ML SYRINGE IVP ONE (12:05)
[2020-06-06] MEDS ORDERED: 0.9 % Sodium Chloride 1,000 ML IVC ONE (12:05)
[2020-06-06] MEDS ORDERED: Pantoprazole 80 MG in 0.9 % Sodium Chloride 50 ML IVPB ONE (12:05)
[2020-06-06] MEDS ORDERED: Isovue-370 500 ML BOTTLE IVP ONE ×2 (12:09→14:02)
[2020-06-06] MEDS ORDERED: Pantoprazole 40 MG in 0.9 % Sodium Chloride Mini Bag 100 ML IVC SCH (12:15)
[2020-06-06 13:00] LABS: INR 1.1; Prothrombin Time 12.5 Seconds (9.4-12.1)
[2020-06-06 13:02] LABS: Activated Partial Thrombo Time 31.1 Seconds (26.0-36.0)
[2020-06-06 13:21] LABS: BUN/Creatinine Ratio 18 (6-26); Blood Urea Nitrogen 13 mg/dL (6-20); Calcium 9.3 mg/dL (8.6-10.3); Carbon Dioxide 20 mEq/L (23-29); Chloride 107 mEq/L (98-107); Glucose 125 mg/dL (70-105); Lipase 12 Units/L (11-82); Magnesium 1.6 mg/dL (1.6-2.6); Osmolality,Calculated 290 (280-300); Potassium 2.9 mEq/L (3.5-5.1); Sodium 139 mEq/L (136-145); Troponin I < 0.03 ng/mL (< 0.04); eGFR For African Americans > 60 (> 60); eGFR For Non-African Americans > 60 (> 60)
[2020-06-06] MEDS ORDERED: POTASSIUM CHLORIDE IN 0.9%NACL 40 MEQ/1,000 ML IV.SOLN IV STA (13:40)
[2020-06-06 14:08] LABS: Basophils % 0.2 %; Eosinophils # 0.1 K/mcL (0.0-0.6); Eosinophils % 0.7 %; Hematocrit 35.9 % (35.3-44.9); Hemoglobin 11.7 g/dL (11.5-15.4); Immature Granulocytes % 0.2 % (0-4); Lymphocytes # 2.2 K/mcL (0.6-4.6); Lymphocytes % 17.2 %; Mean Corpuscular HGB Conc 32.6 g/dL (31.6-35.5); Mean Corpuscular Volume 82.9 fL (83.0-100.0); Mean Platelet Volume 9.7 fL (9.4-12.4); Monocytes # 0.5 K/mcL (0.0-1.3); Platelet Count 320 K/mcL (140-400); Red Blood Count 4.33 M/mcL (3.82-4.97); Segmented Neutrophils % 77.7 %; White Blood Count 12.9 K/mcL (4.3-11.1)
[2020-06-06] MEDS ORDERED: *HR* HYDROmorphone (PF) 1 MG/ML SYRINGE IVP STA (14:17)
[2020-06-06] MEDS ORDERED: MetroNIDAZOLE 500 MG/100 ML 500 MG/100 ML BAG IVPB ONE (14:30)
[2020-06-06] MEDS ORDERED: Ondansetron 4 MG/2 ML VIAL IVP PRN (16:40)
[2020-06-06] MEDS ORDERED: Ketorolac 30 MG/ML VIAL IVP PRN (16:40)
[2020-06-06] MEDS ORDERED: Naloxone 0.4 MG/ML INJ IVP PRN (16:40)
[2020-06-06] MEDS ORDERED: 0.9 % Sodium Chloride 1,000 ML IVC SCH (16:45)
[2020-06-06] MEDS ORDERED: Dextrose Gel 15 GM/37.5 ML TUBE PO PRN ×2 (17:13)
[2020-06-06] MEDS ORDERED: D5% in Water 1,000 ML IVC PRN (17:13)
[2020-06-06] MEDS ORDERED: *HR* Dextrose 50 % in Water (Vial) 50 ML VIAL IVP PRN (17:13)
[2020-06-06] MEDS ORDERED: Ipratropium/Albuterol Neb 3 ML IH PRN (17:22)
[2020-06-06] MEDS: MetroNIDAZOLE 500 MG/100 ML 500 MG/100 ML BAG IVPB SCH (18:17)
[2020-06-06] MEDS ORDERED: Insulin DETEMIR 100 UNIT/ML X5UNITS SQ SCH (21:00)
[2020-06-07] MEDS: Insulin LISPRO 300 UNITS/3 ML VIAL SQ SCH ×2 (00:57→06:50)
[2020-06-07] MEDS: MetroNIDAZOLE 500 MG/100 ML 500 MG/100 ML BAG IVPB SCH (01:12)
[2020-06-07 04:49] LABS: Basophils % 0.4 %; Eosinophils # 0.2 K/mcL (0.0-0.6); Eosinophils % 2.7 %; Hematocrit 34.6 % (35.3-44.9); Immature Granulocytes % 0.3 % (0-4); Lymphocytes # 1.8 K/mcL (0.6-4.6); Lymphocytes % 25.5 %; Mean Corpuscular HGB Conc 31.8 g/dL (31.6-35.5); Mean Platelet Volume 9.8 fL (9.4-12.4); Monocytes # 0.4 K/mcL (0.0-1.3); Monocytes % 5.5 %; Neutrophils # 4.7 K/mcL (1.6-8.9); Platelet Count 255 K/mcL (140-400); Red Blood Count 4.07 M/mcL (3.82-4.97); Segmented Neutrophils % 65.6 %; White Blood Count 7.1 K/mcL (4.3-11.1)
[2020-06-07 05:08] LABS: Alanine Aminotransferase 8 Units/L (7-52); Albumin 3.5 g/dL (3.5-5.7); Albumin/Globulin Ratio 1.6 (1.1-2.2); Alkaline Phosphatase 98 Units/L (34-104); Aspartate Amino Transferase 10 Units/L (13-39); BUN/Creatinine Ratio 13 (6-26); Bilirubin,Total 0.6 mg/dL (0.3-1.0); Blood Urea Nitrogen 8 mg/dL (6-20); Calcium 8.5 mg/dL (8.6-10.3); Carbon Dioxide 22 mEq/L (23-29); Chloride 109 mEq/L (98-107); Globulin 2.2 g/dL (2.4-3.5); Glucose 101 mg/dL (70-105); Magnesium 1.6 mg/dL (1.6-2.6); Osmolality,Calculated 286 (280-300); Potassium 2.9 mEq/L (3.5-5.1); Sodium 139 mEq/L (136-145); Total Protein 5.7 g/dL (6.4-8.9); eGFR For African Americans > 60 (> 60); eGFR For Non-African Americans > 60 (> 60)
[2020-06-07] MEDS ORDERED: Pantoprazole 40 MG VIAL IVP SCH (06:00)
[2020-06-07 06:49] VITALS: BP 129/73
[2020-06-07] MEDS ORDERED: Potassium Chloride 40 MEQ, Lidocaine 1% 2 ML in 0.9 % Sodium Chloride 500 ML IVPB ONE (08:17)
[2020-06-07] MEDS ORDERED: Metoprolol XL (24 HR) Succ 50 MG TAB.ER.24H PO SCH (09:00)
[2020-06-07] MEDS ORDERED: Isosorbide MONOnitrate (24 HR) 30 MG TAB.ER.24H PO SCH (09:00)
[2020-06-07] MEDS ORDERED: amLODIPine 5 MG TABLET PO SCH (09:00)
== END 2020-06-07 10:05 | disposition left against medical advice (07) ==
LOC: EMEROOARM 12:00 → 3ANU 12:00
PROVIDERS: ADMIT Student in an Organized Health Care Education/Training Program; ATTEND Student in an Organized Health Care Education/Training Program

== ENCOUNTER 2020-06-24 08:29 | Observation (INO) ==
[2020-06-24] MEDS ORDERED: Aspirin 81 MG TAB.CHEW PO ONE (08:35)
[2020-06-24] MEDS ORDERED: Isovue-370 500 ML BOTTLE IVP ONE (08:35)
[2020-06-24] MEDS ORDERED: 0.9 % Sodium Chloride 1,000 ML IVC ONE (08:54)
[2020-06-24 08:58] LABS: Basophils # 0.1 K/mcL (0.0-0.2); Basophils % 0.8 %; Eosinophils # 0.1 K/mcL (0.0-0.6); Eosinophils % 0.8 %; Hematocrit 39.7 % (35.3-44.9); Immature Granulocytes % 0.1 % (0-4); Lymphocytes # 1.4 K/mcL (0.6-4.6); Lymphocytes % 19.8 %; Mean Corpuscular HGB Conc 32.7 g/dL (31.6-35.5); Mean Corpuscular Hemoglobin 27.1 pg (28.0-33.3); Mean Corpuscular Volume 82.7 fL (83.0-100.0); Mean Platelet Volume 10.4 fL (9.4-12.4); Monocytes # 0.4 K/mcL (0.0-1.3); Monocytes % 5.6 %; Neutrophils # 5.2 K/mcL (1.6-8.9); Platelet Count 423 K/mcL (140-400); Segmented Neutrophils % 72.9 %; White Blood Count 7.1 K/mcL (4.3-11.1)
[2020-06-24 09:19] LABS: Prothrombin Time 11.7 Seconds (9.4-12.1)
[2020-06-24 09:20] LABS: Alanine Aminotransferase 11 Units/L (7-52); Albumin/Globulin Ratio 1.5 (1.1-2.2); Alkaline Phosphatase 112 Units/L (34-104); Aspartate Amino Transferase 8 Units/L (13-39); BUN/Creatinine Ratio 13 (6-26); Bilirubin,Direct 0.1 mg/dL (0.0-0.2); Bilirubin,Indirect 0.9 mg/dL (0.0-1.0); Blood Urea Nitrogen 10 mg/dL (6-20); Calcium 9.3 mg/dL (8.6-10.3); Carbon Dioxide 21 mEq/L (23-29); Chloride 102 mEq/L (98-107); Globulin 2.6 g/dL (2.4-3.5); Glucose 452 mg/dL (70-105); Magnesium 1.7 mg/dL (1.6-2.6); Osmolality,Calculated 301 (280-300); Potassium 3.5 mEq/L (3.5-5.1); Sodium 136 mEq/L (136-145); Total Protein 6.6 g/dL (6.4-8.9); Troponin I < 0.03 ng/mL (< 0.04); eGFR For African Americans > 60 (> 60); eGFR For Non-African Americans > 60 (> 60)
[2020-06-24 09:22] LABS: Activated Partial Thrombo Time 27.7 Seconds (26.0-36.0)
[2020-06-24 09:32] LABS: Thyroid Stimulating Hormone 3.709 mcIU/mL (0.340-5.600)
[2020-06-24 09:48] LABS: Bilirubin,Urine Negative (Negative); Blood,Urine Negative (Negative); Clarity,Urine Clear (Clear); Color,Urine Light-Yellow (Yellow); Glucose,Urine (UA) >=1000 mg/dL (Normal); Ketones,Urine 10 mg/dL (Negative); Leukocyte Esterase,Urine Negative (Negative); Nitrite,Urine Negative (Negative); Protein,Urine Negative (Neg-Trace); RBC,Urine 0-3 per hpf (0-3); Specific Gravity,Urine 1.029 (1.010-1.025); Squamous Epithelial Cell,Urine Few per hpf (None-Few); Urobilinogen,Urine Normal (Normal); WBC,Urine 0-3 per hpf (0-3)
[2020-06-24 11:08] LABS: Amphetamine Screen,Urine Negative ng/mL (Cutoff=1000); Barbiturate Screen,Urine Negative ng/mL (Cutoff=200); Benzodiazepines Screen,Urine Negative ng/mL (Cutoff=200); Cannabinoid Screen,Urine Negative ng/mL (Cutoff = 50); Cocaine Screen,Urine Negative ng/mL (Cutoff= 300); Opiate Screen,Urine Negative ng/mL (Cutoff=300); Phencyclidine Screen,Urine Negative ng/mL (Cutoff=25)
[2020-06-24] MEDS ORDERED: *HR* Dextrose 50 % in Water (Vial) 50 ML VIAL IVP PRN (11:24)
[2020-06-24] MEDS ORDERED: Naloxone 0.4 MG/ML INJ IVP PRN (11:24)
[2020-06-24] MEDS ORDERED: D5% in Water 1,000 ML IVC PRN (11:24)
[2020-06-24] MEDS ORDERED: Dextrose Gel 15 GM/37.5 ML TUBE PO PRN ×2 (11:24)
[2020-06-24] MEDS ORDERED: hydrOXYzine pamoate 25 MG CAPSULE PO PRN (11:25)
[2020-06-24] MEDS ORDERED: 0.9 % Sodium Chloride 500 ML IVC ONE (11:36)
[2020-06-24] MEDS ORDERED: 0.9 % Sodium Chloride 500 ML ONE (11:37)
[2020-06-24] MEDS ORDERED: 0.9 % Sodium Chloride 1,000 ML IVC SCH (12:45)
[2020-06-24] MEDS: Insulin LISPRO 300 UNITS/3 ML VIAL SQ SCH ×5 (13:08→20:18)
[2020-06-24] MEDS: Gabapentin 400 MG CAPSULE PO SCH ×2 (16:40→20:17)
[2020-06-24] MEDS: Insulin DETEMIR 100 UNIT/ML X5UNITS SQ SCH (20:18)
[2020-06-24] MEDS ORDERED: Insulin LISPRO 300 UNITS/3 ML VIAL SQ SCH (21:00)
[2020-06-24] MEDS ORDERED: Benzonatate 100 MG CAPSULE PO PRN (23:22)
[2020-06-25] MEDS ORDERED: Liraglutide [Victoza 3-Pak] 1.2 MG SQ SCH (09:00)
[2020-06-25] MEDS ORDERED: Aspirin Enteric Coated 81 MG Tablet PO SCH (09:00)
[2020-06-25] MEDS ORDERED: *HR* Rivaroxaban 10 MG TABLET PO SCH (09:00)
[2020-06-25] MEDS ORDERED: BuPROPion XL (24 HR) 150 MG TABLET PO SCH (09:00)
[2020-06-25] MEDS: Insulin LISPRO 300 UNITS/3 ML VIAL SQ SCH ×4 (09:30→12:15)
[2020-06-25] MEDS: Insulin DETEMIR 100 UNIT/ML X5UNITS SQ SCH (09:53)
[2020-06-25] MEDS: Gabapentin 400 MG CAPSULE PO SCH (09:53)
[2020-06-25 10:06] LABS: Basophils % 0.7 %; Eosinophils # 0.1 K/mcL (0.0-0.6); Eosinophils % 2.7 %; Hematocrit 37.7 % (35.3-44.9); Hemoglobin 12.5 g/dL (11.5-15.4); Lymphocytes # 1.3 K/mcL (0.6-4.6); Lymphocytes % 31.1 %; Mean Corpuscular HGB Conc 33.2 g/dL (31.6-35.5); Mean Corpuscular Hemoglobin 27.9 pg (28.0-33.3); Mean Corpuscular Volume 84.2 fL (83.0-100.0); Mean Platelet Volume 10.3 fL (9.4-12.4); Monocytes # 0.4 K/mcL (0.0-1.3); Monocytes % 9.7 %; Neutrophils # 2.3 K/mcL (1.6-8.9); Platelet Count 293 K/mcL (140-400); Red Blood Count 4.48 M/mcL (3.82-4.97); Red Cell Distribution Width 14.2 % (11.5-14.5); Segmented Neutrophils % 55.8 %; White Blood Count 4.1 K/mcL (4.3-11.1)
[2020-06-25 10:19] LABS: BUN/Creatinine Ratio 14 (6-26); Blood Urea Nitrogen 8 mg/dL (6-20); Calcium 8.7 mg/dL (8.6-10.3); Carbon Dioxide 21 mEq/L (23-29); Chloride 106 mEq/L (98-107); Glucose 162 mg/dL (70-105); Osmolality,Calculated 288 (280-300); Potassium 3.2 mEq/L (3.5-5.1); Sodium 138 mEq/L (136-145); eGFR For African Americans > 60 (> 60); eGFR For Non-African Americans > 60 (> 60)
[2020-06-25 12:02] VITALS: BP 145/124
== END 2020-06-25 12:46 | disposition home or self-care (01) ==
LOC: 3BNU 08:29 → EMEROOARM 08:29 → CDU 11:46
PROVIDERS: ADMIT Internal Medicine; ATTEND Internal Medicine

== ENCOUNTER 2020-08-18 10:29 | Observation (INO) ==
[2020-08-18] MEDS ORDERED: Aspirin 81 MG TAB.CHEW PO ONE (10:40)
[2020-08-18] MEDS ORDERED: GI Cocktail 40 ML EACH PO ONE (11:09)
[2020-08-18 11:38] LABS: Basophils % 0.4 %; Eosinophils # 0.1 K/mcL (0.0-0.6); Eosinophils % 1.1 %; Hematocrit 40.3 % (35.3-44.9); Hemoglobin 12.9 g/dL (11.5-15.4); Immature Granulocytes % 0.4 % (0-4); Lymphocytes # 1.6 K/mcL (0.6-4.6); Lymphocytes % 22.5 %; Mean Corpuscular Hemoglobin 27.2 pg (28.0-33.3); Mean Platelet Volume 10.7 fL (9.4-12.4); Monocytes # 0.3 K/mcL (0.0-1.3); Monocytes % 4.9 %; Neutrophils # 4.9 K/mcL (1.6-8.9); Platelet Count 239 K/mcL (140-400); Red Blood Count 4.74 M/mcL (3.82-4.97); Red Cell Distribution Width 13.8 % (11.5-14.5); Segmented Neutrophils % 70.7 %
[2020-08-18 11:41] LABS: Prothrombin Time 11.3 Seconds (9.4-12.1)
[2020-08-18 11:44] LABS: Activated Partial Thrombo Time 27.4 Seconds (26.0-36.0)
[2020-08-18 12:07] LABS: BUN/Creatinine Ratio 25 (6-26); Blood Urea Nitrogen 13 mg/dL (6-20); Calcium 9.4 mg/dL (8.6-10.3); Carbon Dioxide 21 mEq/L (23-29); Chloride 103 mEq/L (98-107); Glucose 311 mg/dL (70-105); Osmolality,Calculated 296 (280-300); Potassium 3.7 mEq/L (3.5-5.1); Sodium 137 mEq/L (136-145); Troponin I < 0.03 ng/mL (< 0.04); eGFR For African Americans > 60 (> 60); eGFR For Non-African Americans > 60 (> 60)
[2020-08-18] MEDS ORDERED: Nitroglycerin 0.4 MG TAB.SUBL SL PRN ×2 (13:18)
[2020-08-18] MEDS ORDERED: Isovue-370 500 ML BOTTLE IVP ONE (13:18)
[2020-08-18] MEDS ORDERED: *HR* Metoprolol 5 MG/5 ML VIAL IVP PRN ×2 (13:18)
[2020-08-18] MEDS ORDERED: 0.9 % Sodium Chloride 1,000 ML IVC SCH (13:30)
[2020-08-18] MEDS ORDERED: Naloxone 0.4 MG/ML INJ IVP PRN (15:28)
[2020-08-18] MEDS ORDERED: *HR* Dextrose 50 % in Water (Vial) 50 ML VIAL IVP PRN (15:30)
[2020-08-18] MEDS ORDERED: Dextrose Gel 15 GM/37.5 ML TUBE PO PRN ×2 (15:30)
[2020-08-18] MEDS ORDERED: D5% in Water 1,000 ML IVC PRN (15:30)
[2020-08-18] MEDS ORDERED: Insulin LISPRO 300 UNITS/3 ML VIAL SUBQ SCH ×2 (16:30→21:00)
[2020-08-18] MEDS ORDERED: Ketorolac 30 MG/ML VIAL IVP PRN (16:58)
[2020-08-18 18:56] VITALS: BP 137/87
[2020-08-18] MEDS ORDERED: Gabapentin 400 MG CAPSULE PO SCH (21:00)
[2020-08-18] MEDS ORDERED: Insulin DETEMIR 100 UNIT/ML X5UNITS SUBQ SCH (21:00)
[2020-08-18] MEDS ORDERED: Metoprolol XL (24 HR) Succ 50 MG TAB.ER.24H PO SCH (21:00)
[2020-08-18] MEDS ORDERED: Metoprolol 100 MG TABLET PO SCH (21:00)
[2020-08-18] MEDS ORDERED: Metoprolol 100 MG TABLET PO ONE (22:00)
[2020-08-19] MEDS ORDERED: lisinopriL 5 MG TABLET PO SCH (09:00)
[2020-08-19] MEDS ORDERED: BuPROPion XL (24 HR) 150 MG TABLET PO SCH (09:00)
[2020-08-19] MEDS ORDERED: amLODIPine 5 MG TABLET PO SCH (09:00)
[2020-08-19] MEDS ORDERED: *HR* Rivaroxaban 10 MG TABLET PO SCH (09:00)
== END 2020-08-18 19:20 | disposition left against medical advice (07) ==
LOC: 3BNU 10:29 → EMEROOARM 10:29 → SUATTDRO 13:39 → 3BNU 14:47
PROVIDERS: ADMIT Internal Medicine; ATTEND Registered Nurse

== ENCOUNTER 2021-01-04 11:24 | Observation (INO) ==
[2021-01-04] MEDS ORDERED: Aspirin 81 MG TAB.CHEW PO ONE (11:36)
[2021-01-04] MEDS ORDERED: Nitroglycerin 0.4 MG TAB.SUBL SL STA (11:57)
[2021-01-04 12:16] LABS: Basophils % 0.6 %; Eosinophils # 0.1 K/mcL (0.0-0.6); Eosinophils % 0.8 %; Hematocrit 38.1 % (35.3-44.9); Hemoglobin 12.6 g/dL (11.5-15.4); Immature Granulocytes % 0.3 % (0-4); Lymphocytes # 1.8 K/mcL (0.6-4.6); Lymphocytes % 28.2 %; Mean Corpuscular HGB Conc 33.1 g/dL (31.6-35.5); Mean Corpuscular Hemoglobin 28.1 pg (28.0-33.3); Mean Corpuscular Volume 84.9 fL (83.0-100.0); Mean Platelet Volume 10.7 fL (9.4-12.4); Monocytes # 0.4 K/mcL (0.0-1.3); Monocytes % 5.9 %; Platelet Count 230 K/mcL (140-400); Red Blood Count 4.49 M/mcL (3.82-4.97); Red Cell Distribution Width 14.6 % (11.5-14.5); Segmented Neutrophils % 64.2 %; White Blood Count 6.3 K/mcL (4.3-11.1)
[2021-01-04] MEDS ORDERED: Morphine Sulfate 2 MG/ML SYRINGE IVP ONE (12:18)
[2021-01-04] MEDS ORDERED: 0.9 % Sodium Chloride 500 ML IV ONE (12:20)
[2021-01-04] MEDS ORDERED: 0.9 % Sodium Chloride 500 ML ONE (12:23)
[2021-01-04 12:25] LABS: INR 2.2; Prothrombin Time 25.3 Seconds (9.4-12.1)
[2021-01-04] MEDS ORDERED: Isovue-370 500 ML BOTTLE IVP ONE (12:33)
[2021-01-04 12:40] LABS: BUN/Creatinine Ratio 17 (6-26); Blood Urea Nitrogen 14 mg/dL (6-20); Calcium 9.5 mg/dL (8.6-10.3); Carbon Dioxide 19 mEq/L (23-29); Chloride 102 mEq/L (98-107); Glucose 281 mg/dL (70-105); Osmolality,Calculated 291 (280-300); Potassium 3.7 mEq/L (3.5-5.1); Sodium 135 mEq/L (136-145); Troponin I < 0.03 ng/mL (< 0.04); eGFR For African Americans > 60 (> 60); eGFR For Non-African Americans > 60 (> 60)
[2021-01-04] MEDS ORDERED: Naloxone 0.4 MG/ML INJ IVP PRN (13:52)
[2021-01-04] MEDS ORDERED: *HR* HYDROcodone/Acet 5/325 mg TABLET PO PRN (13:52)
[2021-01-04] MEDS ORDERED: Ondansetron 4 MG/2 ML VIAL IVP PRN (13:52)
[2021-01-04] MEDS ORDERED: Nitroglycerin 0.4 MG TAB.SUBL SL PRN (13:54)
[2021-01-04] MEDS ORDERED: *HR* Dextrose 50 % in Water (Vial) 50 ML VIAL IVP PRN (13:55)
[2021-01-04] MEDS ORDERED: D5% in Water 1,000 ML IVC PRN (13:55)
[2021-01-04] MEDS ORDERED: Dextrose Gel 15 GM/37.5 ML TUBE PO PRN ×2 (13:55)
[2021-01-04] MEDS ORDERED: Ipratropium/Albuterol Neb 3 ML IH PRN (14:26)
[2021-01-04] MEDS ORDERED: Ringers Solution, Lactated 1,000 ML IVC SCH (14:30)
[2021-01-04] MEDS: Insulin LISPRO 300 UNITS/3 ML VIAL SUBQ SCH (16:35)
[2021-01-04] MEDS: Gabapentin 400 MG CAPSULE PO SCH ×2 (16:48→21:13)
[2021-01-04] MEDS: Isosorbide MONOnitrate (24 HR) 60 MG TAB.ER.24H PO SCH (16:48)
[2021-01-04] MEDS ORDERED: hydrOXYzine pamoate 25 MG CAPSULE PO PRN (17:50)
[2021-01-04] MEDS ORDERED: Insulin DETEMIR 100 UNIT/ML X5UNITS SUBQ SCH (21:00)
[2021-01-04] MEDS: Metoprolol XL (24 HR) Succ 50 MG TAB.ER.24H PO SCH (21:13)
[2021-01-05 05:29] LABS: BUN/Creatinine Ratio 16 (6-26); Blood Urea Nitrogen 9 mg/dL (6-20); Calcium 8.9 mg/dL (8.6-10.3); Carbon Dioxide 23 mEq/L (23-29); Chloride 105 mEq/L (98-107); Chol/HDL Ratio 4.7 (0-4.9); Cholesterol 147 mg/dL (< 200); Glucose 243 mg/dL (70-105); HDL Cholesterol 31 mg/dL (40-59); LDL Cholesterol,Calculated 77 mg/dL (< 100); Magnesium 1.7 mg/dL (1.6-2.6); Osmolality,Calculated 289 (280-300); Phosphorous 3.4 mg/dL (2.7-4.5); Potassium 3.7 mEq/L (3.5-5.1); Sodium 136 mEq/L (136-145); Triglycerides 194 mg/dL (< 150); eGFR For African Americans > 60 (> 60); eGFR For Non-African Americans > 60 (> 60)
[2021-01-05 07:14] VITALS: BP 112/71
[2021-01-05] MEDS: Insulin LISPRO 300 UNITS/3 ML VIAL SUBQ SCH (07:19)
[2021-01-05] MEDS ORDERED: NON-FORMULARY MEDICATION 1 EACH EACH (Insulin Glargine,Hum.Rec.Anlog [Lantus Solostar] 100 SQ SCH (09:00)
[2021-01-05] MEDS ORDERED: Metoprolol XL (24 HR) Succ 25 MG TAB.ER.24H PO SCH ×2 (09:00)
[2021-01-05] MEDS ORDERED: amLODIPine 5 MG TABLET PO SCH (09:00)
[2021-01-05] MEDS ORDERED: BuPROPion XL (24 HR) 150 MG TABLET PO SCH (09:00)
[2021-01-05] MEDS ORDERED: *HR* Rivaroxaban 10 MG TABLET PO SCH (09:00)
[2021-01-05] MEDS ORDERED: Aspirin Enteric Coated 81 MG Tablet PO SCH (09:00)
[2021-01-05] MEDS ORDERED: Insulin DETEMIR 100 UNIT/ML X5UNITS SUBQ SCH (09:30)
[2021-01-05] MEDS: Gabapentin 400 MG CAPSULE PO SCH (09:54)
[2021-01-05] MEDS: Metoprolol XL (24 HR) Succ 50 MG TAB.ER.24H PO SCH (09:55)
[2021-01-05] MEDS: Isosorbide MONOnitrate (24 HR) 60 MG TAB.ER.24H PO SCH (09:55)
== END 2021-01-05 11:17 | disposition home or self-care (01) ==
LOC: 3BNU 11:24 → EMEROOARM 11:24 → SUATTDRO 14:19 → 3BNU 15:02
PROVIDERS: ADMIT Internal Medicine; ATTEND Internal Medicine

== ENCOUNTER 2021-03-13 13:21 | Observation (INO) ==
[2021-03-13 14:15] LABS: Basophils % 0.5 %; Eosinophils # 0.1 K/mcL (0.0-0.6); Eosinophils % 1.4 %; Hematocrit 42.4 % (35.3-44.9); Immature Granulocytes % 0.4 % (0-4); Lymphocytes # 2.1 K/mcL (0.6-4.6); Lymphocytes % 24.6 %; Mean Corpuscular Hemoglobin 27.9 pg (28.0-33.3); Mean Corpuscular Volume 84.6 fL (83.0-100.0); Mean Platelet Volume 10.7 fL (9.4-12.4); Monocytes # 0.3 K/mcL (0.0-1.3); Neutrophils # 5.9 K/mcL (1.6-8.9); Platelet Count 278 K/mcL (140-400); Red Blood Count 5.01 M/mcL (3.82-4.97); Red Cell Distribution Width 13.4 % (11.5-14.5); Segmented Neutrophils % 69.1 %; White Blood Count 8.5 K/mcL (4.3-11.1)
[2021-03-13 15:37] LABS: BUN/Creatinine Ratio 13 (6-26); Blood Urea Nitrogen 8 mg/dL (6-20); Calcium 9.3 mg/dL (8.6-10.3); Carbon Dioxide 24 mEq/L (23-29); Chloride 100 mEq/L (98-107); Glucose 274 mg/dL (70-105); Osmolality,Calculated 290 (280-300); Potassium 3.3 mEq/L (3.5-5.1); Sodium 136 mEq/L (136-145); Troponin I < 0.03 ng/mL (< 0.04); eGFR For African Americans > 60 (> 60); eGFR For Non-African Americans > 60 (> 60)
[2021-03-13] MEDS: Nitroglycerin 0.4 MG TAB.SUBL SL SCH ×2 (15:52→17:54)
[2021-03-13] MEDS ORDERED: *HR* FentaNYL (PF) 100 MCG/2 ML VIAL IVP ONE (15:56)
[2021-03-13] MEDS ORDERED: Naloxone 0.4 MG/ML INJ IVP PRN (16:54)
[2021-03-13] MEDS ORDERED: Acetaminophen 325 MG TABLET PO PRN (16:54)
[2021-03-13] MEDS ORDERED: 0.9 % Sodium Chloride w KCl 20 MEQ/1,000 ML MLS IVC SCH (17:00)
[2021-03-13] MEDS ORDERED: Nitroglycerin 1 INCH/GM PACKET TP ONE (18:00)
[2021-03-14 05:43] LABS: Basophils % 0.4 %; Eosinophils # 0.1 K/mcL (0.0-0.6); Eosinophils % 1.3 %; Hematocrit 39.5 % (35.3-44.9); Immature Granulocytes % 0.3 % (0-4); Lymphocytes # 1.8 K/mcL (0.6-4.6); Lymphocytes % 27.1 %; Mean Corpuscular HGB Conc 32.9 g/dL (31.6-35.5); Mean Corpuscular Hemoglobin 27.8 pg (28.0-33.3); Mean Corpuscular Volume 84.6 fL (83.0-100.0); Mean Platelet Volume 10.6 fL (9.4-12.4); Monocytes # 0.3 K/mcL (0.0-1.3); Monocytes % 4.8 %; Neutrophils # 4.4 K/mcL (1.6-8.9); Platelet Count 215 K/mcL (140-400); Red Blood Count 4.67 M/mcL (3.82-4.97); Red Cell Distribution Width 13.3 % (11.5-14.5); Segmented Neutrophils % 66.1 %; White Blood Count 6.7 K/mcL (4.3-11.1)
[2021-03-14 06:02] LABS: Alanine Aminotransferase 17 Units/L (7-52); Albumin 3.7 g/dL (3.5-5.7); Albumin/Globulin Ratio 1.5 (1.1-2.2); Alkaline Phosphatase 106 Units/L (34-104); Aspartate Amino Transferase 20 Units/L (13-39); BUN/Creatinine Ratio 17 (6-26); Bilirubin,Total 0.4 mg/dL (0.3-1.0); Blood Urea Nitrogen 10 mg/dL (6-20); Calcium 8.9 mg/dL (8.6-10.3); Carbon Dioxide 25 mEq/L (23-29); Chloride 104 mEq/L (98-107); Chol/HDL Ratio 4.8 (0-4.9); Cholesterol 171 mg/dL (< 200); Globulin 2.5 g/dL (2.4-3.5); Glucose 298 mg/dL (70-105); HDL Cholesterol 36 mg/dL (40-59); LDL Cholesterol,Calculated 88 mg/dL (< 100); Magnesium 1.6 mg/dL (1.6-2.6); Osmolality,Calculated 294 (280-300); Phosphorous 3.2 mg/dL (2.7-4.5); Potassium 3.5 mEq/L (3.5-5.1); Sodium 137 mEq/L (136-145); Total Protein 6.2 g/dL (6.4-8.9); Triglycerides 234 mg/dL (< 150); eGFR For African Americans > 60 (> 60); eGFR For Non-African Americans > 60 (> 60)
[2021-03-14 06:53] VITALS: BP 132/80; PULSE 82; TEMP 97.9; O2SAT 93
[2021-03-14] MEDS ORDERED: Isovue-370 500 ML BOTTLE IVP ONE (07:51)
[2021-03-14] MEDS ORDERED: *HR* Dextrose 50 % in Water (Vial) 50 ML VIAL IVP PRN (08:16)
[2021-03-14] MEDS ORDERED: Dextrose Gel 15 GM/37.5 ML TUBE PO PRN ×2 (08:16)
[2021-03-14] MEDS ORDERED: D5% in Water 1,000 ML IVC PRN (08:16)
[2021-03-14 09:43] LABS: Estimated Average Glucose 278 mg/dl; Hemoglobin A1C 11.3 %
[2021-03-14] MEDS ORDERED: polyethylene glycoL 3350 17 GM POWD.PACK PO PRN (10:43)
[2021-03-14] MEDS ORDERED: Insulin LISPRO 300 UNITS/3 ML VIAL SUBQ SCH (12:00)
== END 2021-03-14 11:19 | disposition home or self-care (01) ==
LOC: EMEROOARM 13:21 → 3BNU 13:21 → SUATTDRO 16:21 → 3BNU 17:02
PROVIDERS: ADMIT Student in an Organized Health Care Education/Training Program; ATTEND Internal Medicine

== ENCOUNTER 2021-08-31 08:46 | Observation (INO) ==
[2021-08-31] MEDS ORDERED: *HR* FentaNYL (PF) 100 MCG/2 ML VIAL IVP ONE ×2 (09:05→12:27)
[2021-08-31 09:37] LABS: Basophils % 0.3 %; Eosinophils # 0.1 K/mcL (0.0-0.6); Eosinophils % 1.6 %; Hematocrit 35.7 % (35.3-44.9); Hemoglobin 11.7 g/dL (11.5-15.4); Immature Granulocytes % 0.1 % (0-4); Lymphocytes # 1.7 K/mcL (0.6-4.6); Mean Corpuscular HGB Conc 32.8 g/dL (31.6-35.5); Mean Corpuscular Hemoglobin 28.1 pg (28.0-33.3); Mean Corpuscular Volume 85.8 fL (83.0-100.0); Mean Platelet Volume 10.2 fL (9.4-12.4); Monocytes # 0.3 K/mcL (0.0-1.3); Monocytes % 4.5 %; Neutrophils # 4.7 K/mcL (1.6-8.9); Platelet Count 273 K/mcL (140-400); Red Blood Count 4.16 M/mcL (3.82-4.97); Red Cell Distribution Width 13.5 % (11.5-14.5); Segmented Neutrophils % 68.5 %; White Blood Count 6.9 K/mcL (4.3-11.1)
[2021-08-31 09:44] LABS: INR 2.3; Prothrombin Time 25.4 Seconds (9.4-12.1)
[2021-08-31 09:48] LABS: Activated Partial Thrombo Time 46.1 Seconds (26.0-36.0)
[2021-08-31] MEDS: 0.9 % Sodium Chloride 1,000 ML IVC SCH ×2 (09:54→20:48)
[2021-08-31 09:58] LABS: BUN/Creatinine Ratio 16 (6-26); Blood Urea Nitrogen 10 mg/dL (6-20); Calcium 8.9 mg/dL (8.6-10.3); Carbon Dioxide 26 mEq/L (23-29); Chloride 105 mEq/L (98-107); Glucose 111 mg/dL (70-105); Osmolality,Calculated 290 (280-300); Potassium 3.2 mEq/L (3.5-5.1); Sodium 140 mEq/L (136-145); eGFR For African Americans > 60 (> 60); eGFR For Non-African Americans > 60 (> 60)
[2021-08-31 09:59] LABS: Troponin I < 0.03 ng/mL (< 0.04)
[2021-08-31 12:06] LABS: Adenovirus Not Detected (Not Detect); Bordetella Pertussis Not Detected (Not Detect); Chlamydophila pneumoniae Not Detected (Not Detect); Coronavirus 229E Not Detected (Not Detect); Coronavirus HKU1 Not Detected (Not Detect); Coronavirus NL63 Not Detected (Not Detect); Coronavirus OC43 Not Detected (Not Detect); Human Metapneumovirus Not Detected (Not Detect); Human Rhinovirus/Enterovirus Not Detected (Not Detect); Influenza A Subtype 2009 H1 Not Detected (Not Detect); Influenza B Not Detected (Not Detect); Mycoplasma pneumoniae Not Detected (Not Detect); Parainfluenza Virus 1 Not Detected (Not Detect); Parainfluenza Virus 2 Not Detected (Not Detect); Parainfluenza Virus 3 Not Detected (Not Detect); Parainfluenza Virus 4 Not Detected (Not Detect); Respiratory Syncytial Virus Not Detected (Not Detect); SARS-CoV-2 Not Detected (Not Detect)
[2021-08-31] MEDS ORDERED: Naloxone 0.4 MG/ML INJ IVP PRN (12:43)
[2021-08-31] MEDS ORDERED: Perflutren Lipid Microsphere 1.3 ML in 0.9 % Sodium Chloride 8.7 ML IVP PRN (13:58)
[2021-08-31] MEDS ORDERED: Dextrose Gel 15 GM/37.5 ML TUBE PO PRN ×2 (14:02)
[2021-08-31] MEDS ORDERED: *HR* Dextrose 50 % in Water (Syg) 50 ML SYRINGE IVP PRN (14:02)
[2021-08-31] MEDS ORDERED: D5% in Water 1,000 ML IVC PRN (14:02)
[2021-08-31] MEDS ORDERED: Aspirin 325 MG TABLET PO ONE (14:09)
[2021-08-31] MEDS: Insulin LISPRO 300 UNITS/3 ML VIAL SUBQ SCH (17:14)
[2021-08-31] MEDS ORDERED: Ketorolac 30 MG/ML VIAL IVP ONE (20:38)
[2021-08-31] MEDS ORDERED: Insulin LISPRO 300 UNITS/3 ML VIAL SUBQ SCH (21:00)
[2021-09-01] MEDS: Gabapentin 400 MG CAPSULE PO SCH ×2 (01:09→10:19)
[2021-09-01] MEDS: 0.9 % Sodium Chloride 1,000 ML IVC SCH (05:49)
[2021-09-01 06:06] LABS: Estimated Average Glucose 169 mg/dl; Hemoglobin A1C 7.5 %
[2021-09-01 06:10] LABS: Basophils % 0.4 %; Eosinophils # 0.1 K/mcL (0.0-0.6); Eosinophils % 1.7 %; Hematocrit 33.3 % (35.3-44.9); Immature Granulocytes % 0.2 % (0-4); Lymphocytes # 1.8 K/mcL (0.6-4.6); Lymphocytes % 32.6 %; Mean Corpuscular Hemoglobin 28.4 pg (28.0-33.3); Mean Platelet Volume 10.5 fL (9.4-12.4); Monocytes # 0.3 K/mcL (0.0-1.3); Monocytes % 5.4 %; Neutrophils # 3.2 K/mcL (1.6-8.9); Platelet Count 228 K/mcL (140-400); Red Blood Count 3.87 M/mcL (3.82-4.97); Red Cell Distribution Width 13.4 % (11.5-14.5); Segmented Neutrophils % 59.7 %; White Blood Count 5.4 K/mcL (4.3-11.1)
[2021-09-01 06:21] LABS: BUN/Creatinine Ratio 21 (6-26); Blood Urea Nitrogen 12 mg/dL (6-20); Calcium 8.2 mg/dL (8.6-10.3); Carbon Dioxide 23 mEq/L (23-29); Chloride 110 mEq/L (98-107); Glucose 183 mg/dL (70-105); Osmolality,Calculated 296 (280-300); Potassium 3.5 mEq/L (3.5-5.1); Sodium 141 mEq/L (136-145); eGFR For African Americans > 60 (> 60); eGFR For Non-African Americans > 60 (> 60)
[2021-09-01 06:25] LABS: Chol/HDL Ratio 3.6 (0-4.9)
[2021-09-01 06:33] LABS: Thyroid Stimulating Hormone 2.873 mcIU/mL (0.340-5.600)
[2021-09-01] MEDS ORDERED: Regadenoson 0.4 MG/5 ML SYRINGE IVP ONE (06:49)
[2021-09-01] MEDS ORDERED: BuPROPion XL (24 HR) 150 MG TABLET PO SCH (09:00)
[2021-09-01] MEDS ORDERED: Aspirin Enteric Coated 81 MG Tablet PO SCH (09:00)
[2021-09-01] MEDS ORDERED: lisinopriL 5 MG TABLET PO SCH (09:00)
[2021-09-01] MEDS ORDERED: *HR* Rivaroxaban 10 MG TABLET PO SCH (09:00)
[2021-09-01] MEDS ORDERED: Insulin DETEMIR 100 UNIT/ML X5UNITS SUBQ SCH (09:00)
[2021-09-01] MEDS: Insulin LISPRO 300 UNITS/3 ML VIAL SUBQ SCH ×2 (10:10→11:31)
[2021-09-01 11:39] VITALS: BP 120/80; PULSE 70; TEMP 98.1; O2SAT 97
[2021-09-01] MEDS ORDERED: Metoprolol XL (24 HR) Succ 50 MG TAB.ER.24H PO SCH (18:00)
== END 2021-09-01 14:37 | disposition home or self-care (01) ==
LOC: EMEROOARM 08:46 → 3BNU 08:46 → SUATTDRO 12:44 → 3BNU 13:50
PROVIDERS: ADMIT Internal Medicine; ATTEND Internal Medicine